=== PATIENT | male | born 1945 | race Caucasian/White ===

== ENCOUNTER → 2016-05-17 | Outpatient (REF) | payer MEDICARE, OTHER ==
[~2016-05-17] MED LIST: /ALEN7SOL OR; ACET65TA OR; ANACIN; ANAP550T PO; ASPI81TA85 PO; CALCIUM+VIT D PO; CARV6.25 PO; CENTTAB47 PO; CETI10TA OR; CORE3.12 PO; ETHACRYNIC ACID PO; GABA-279 PO; MULTIVIT PO; NAPR375T OR; NAPR500T OR; NEUR300C PO; OXYGEN INH; PROL60SO SC; RAMI1.25 PO; RED RICE YEAST PO; SAWPALMETTO PO; SERT25TA2 OR; TYLE325T5 PO; VIAC8.5C PO; VITA1CAP14 PO; ZYRT10CA PO; [UNRECOGNIZED DRUG - CODE] PO; [UNRECOGNIZED DRUG - OTHER] PO; [UNRECOGNIZED DRUG - OTHER] PO
== END ==
LOC: M LABDRAW1 17:10
PROVIDERS: ATTEND Radiology Radiation Oncology
DX: C61 Malignant neoplasm of prostate (principal)

== ENCOUNTER → 2016-05-23 | Outpatient (CLI) | payer MEDICARE, OTHER | LOC: M ONCR 15:12 | PROVIDERS: ATTEND Radiology Radiation Oncology | DX: C61 Malignant neoplasm of prostate (principal) ==

== ENCOUNTER 2016-05-25 21:08 | Emergency (ER) | payer MEDICARE, OTHER ==
[2016-05-25] MEDS ORDERED: CEFTAROLINE FOSAMIL 600 MG VIAL (TEFLARO) As Ordered ONE (23:50)
--- NOTE | 2016-05-26 00:40 | REPUSA ---
Clinical history: Pain, swelling. Findings: The left common femoral, superficial femoral, popliteal, and other deep venous structures c ompress normally and demonstrate normal color Doppler flow. Normal venous waveforms with augmentation are seen. Impression: No evidence of deep vein thrombosis in the left femoral popliteal venous system.
[2016-05-26 00:59] LABS: BASO % 0.6 % (0.0-1.0); EOS # 0.2 K/mm3 (0.0-0.50); EOS % 2.9 % (0.0-3.0); LARGE UNSTAINED CELL # 0.1 K/mm3 (0.0-0.4); LARGE UNSTAINED CELL % 0.7 % (0.0-4.0); LYMPH # 0.4 K/mm3 (1.5-4.5); LYMPH % 6.2 % (24.0-44.0); MEAN CORPUSCULAR HEMOGLOBIN 33.4 pg (27.0-33.0); MEAN CORPUSCULAR HGB CONC 32.8 g/dl (32.0-36.5); MONO # 0.3 K/mm3 (0.0-0.8); MONO % 3.5 % (0.0-5.0); NEUTROPHILS # 6.1 K/mm3 (1.8-7.7); PLATELET COUNT, AUTOMATED 102 k/mm3 (150-450); RED CELL DISTRIBUTION WIDTH 12.3 % (11.5-14.5); WHITE BLOOD COUNT 7.1 K/mm3 (4.0-10.0)
[2016-05-26 01:07] LABS: ANION GAP 6 MEQ/L (8-16); BLOOD UREA NITROGEN 27 MG/DL (7-18); CALCIUM LEVEL 9.5 MG/DL (8.8-10.2); CARBON DIOXIDE LEVEL 34 MEQ/L (21-32); CHLORIDE LEVEL 102 MEQ/L (98-107); GLOMERULAR FILTRATION RATE > 60.0 (>42); GLUCOSE, FASTING 126 MG/DL (83-110); POTASSIUM SERUM 4.1 MEQ/L (3.5-5.1); SODIUM LEVEL 142 MEQ/L (136-145)
[2016-05-26 02:04] LABS: ERYTHROCYTE SEDIMENTATION RATE 2 mm/hr (0-20)
--- NOTE | 2016-05-26 02:08 | EDDOCDS ---
Nurse's Notes [facility] Name: Manuel Flores Age: 71 yrs Sex: Male : 1945 Arrival Date: 05/25/2016 Time: 21:08 Bed I2 / M2 Private MD: Shiela Renae Diagnosis: Cellulitis of left lower limb Presentation: 05/25 21:14 Presenting complaint: Patient states: Left ankle pain, swelling, redness started two rs3 hours ago. Adult Sepsis Screening: The patient does not have new or worsening altered mentation. Patient's respiratory rate is less than 22. Systolic blood pressure is greater than 100. Patient has a qSOFA score of 0- Negative Sepsis Screen. Suicide/Homicide risk assessment- the patient denies having any suicidal and/or homicidal ideations and does not present with any other emotional, behavioral or mental health complaints. Status: Patient is not a director of family service center or dependent. Transition of care: patient was not received from another setting of care. 21:14 Acuity: ALLEN Level 3 rs3 21:14 Method Of Arrival: Walkin/Carried/Asstd rs3 Triage Assessment: 21:19 General: Appears in no apparent distress. Pain: Location: left foot. Musculoskeletal: rs3 Reports Pain is 5 out of 10 on a pain scale. Historical: - Allergies: Latex; PENICILLINS (Rash); - Home Meds: 1. aspirin 325 mg oral tab 2. carvedilol 3.125 mg oral tab 1 tab every 12 hours 3. pravastatin 10 mg oral tab 1 tab once daily 4. Neurontin 1000mg four times a day Oral 5. prolia injection 6. Naproxen 550 mg Oral as needed 7. Soolantra 1 cream 8. Lasix 20 mg Oral tab every other day 9. ramipril 1.25 mg Oral cap 1 cap once daily 10. minocycline 100 mg Oral tab 2 times per day 11. Zyrtec 10 mg Oral tab 1 tab once daily 12. multivitamin Oral tab 1 tab daily 13. Anacin 500mg oral as needed 14. Vitamin D3 2,000 unit oral cap every other day 15. Viactiv 500-500-40 mg-unit-mcg oral chew daily - PMHx: CAD; Diverticulitis; Polio; prostate cancer; - PSHx: Defibrillator as if 11/03/15; Cardiac Cath; Spinal Fusion; small intestine resection; - Social history: Smoking status: Patient states former smoker of tobacco. No barriers to communication noted, The patient speaks fluent Lao. - Family history: Not pertinent. - : The pt / caregiver states he / she is not on anticoagulants. Home medication list is obtained from the patient. - Exposure Risk Screening:: None identified. Screenin:25 Screening information is obtained from the patient. Fall risk: No risks identified. kmg1 Assistance ADL's: requires no assistance with activities of daily living. Abuse/DV Screen: The patient / caregiver reports he/she is: not in a situation that causes fear, pain or injury. Nutritional screening: No deficits noted. home support is adequate. 05/26 01:53 Advance Directives: Currently, there is no health care proxy. There is no active DNR jmb order. There is no living will. There is no Power of Chief Operator Synthesis. Assessment: 05/25 23:25 General: Appears in no apparent distress, comfortable, Behavior is appropriate for age, kmg1 cooperative, pleasant. Pain: Location: left lateral ankle, left Achilles, left medial ankle and anterior aspect of left ankle and left foot Pain currently is 3 out of 10 on a pain scale. Derm: Redness noted on left foot and ankle. Patient believes he has cellullitis. 05/26 00:36 General: Appears in no apparent distress, comfortable, Behavior is appropriate for age, jmb cooperative. Pain: Location: left leg and anterior aspect of left ankle and left medial ankle and left Achilles and left lateral ankle and left foot Pain currently is 5 out of 10 on a pain scale. Neurological: Level of Consciousness is awake, alert, obeys commands, Oriented to person, place, time, Dispatcher Service are equal bilaterally Speech is normal, Facial symmetry appears normal, Facial symmetry: tongue is midline. Cardiovascular: Capillary refill < 3 seconds Heart tones present Pulses are all present. Rhythm is regular. Respiratory: Airway is patent Respiratory effort is even, unlabored, Respiratory pattern is regular, symmetrical, Breath sounds are diminished bilaterally. GI: Abdomen is non- distended Bowel sounds present X 4 quads. Abd is soft and non tender X 4 quads. Derm: Musculoskeletal: Range of motion intact in all extremities. 01:34 General: Appears in no apparent distress, comfortable, Behavior is appropriate for age, jmb cooperative, Patient laying on stretcher, appears asleep, easy to arouse. No complaints voiced at this time. . Neurological: Level of Consciousness is awake, alert, obeys commands, Oriented to person, place, time. Respiratory: Airway is patent Respiratory effort is even, unlabored, Respiratory pattern is regular, symmetrical. 01:52 General: Patient instructed on discharge instructions. Patient asked if there were any jmb questions regarding discharge, patient stated no. IV discontinued per hospital policy. Patient signed discharge instructions. Patient discharged in stable condition. . Vital Signs: 05/25 21:12 BP 112 / 64; Pulse 72; Resp 16; Temp 98.7; Pulse Ox 100% ; Weight 60.33 kg; Height 5 elp ft. 2 in. (157.48 cm); Pain 3/10; 05/26 00:49 Temp 98.3(T); cp1 01:53 BP 118 / 70; Pulse 70; Resp 18; Temp 98.0(O); Pulse Ox 100% on R/A; Pain 0/10; jmb 02:06 BP 101 / 54; Pulse 72; Resp 18; Temp 98.1(T); Pulse Ox 93% on R/A; Pain 0/10; cp1 05/25 21:12 Body Mass Index 24.33 (60.33 kg, 157.48 cm) [facility] Vitals: 05/25 21:12 Log In Time: May 25, 2016 at 21:10. [facility] ED Course: 21:09 Patient visited by No Jimenez PCA. elp 21:09 Shiela Renae is Private Physician. elp 21:09 Patient moved to Waiting elp 21:13 Patient visited by No Jimenez PCA. elp 21:13 Patient moved to Pre RCE elp 21:15 Triage Initiated rs3 23:09 Patient moved to Triage 3 kmg1 23:25 The patient / caregiver is instructed regarding the plan of care and ED course. kmg1 23:27 Patient visited by Sheri Haywood RN. kmg1 23:30 Arnoldo Vigli PA is PHCP. mo1 23:30 Abad Dunlap DO is Attending Physician. mo1 23:44 Patient visited by Arnoldo Vigil PA. mo1 23:45 Patient moved to / M2 cz 05/26 00:19 Patient visited by Angelic Griffiths LPN. cp1 00:36 BLOOD CULTURES Sent. jmb 00:36 -Blood Culture Sent. jmb 00:36 ESR Sent. jmb 00:36 CRP Sent. jmb 00:36 BMP Sent. jmb 00:36 CBC with Diff Sent. jmb 00:36 Inserted saline lock: 22 gauge in right antecubital area and blood collected. The jmb patient tolerated the procedure well. Labs drawn. (by ED staff). Sent per order to lab. Labs/Blood culture drawn. 00:38 Patient visited by Kelvin Duran RN. jmb 00:54 US Lower Extremity R/O DVT Returned. EDMS 00:58 PHCP role handed off by Arnoldo Vigil PA dt4 00:58 Yeni Lim PA-C is PHCP. dt4 01:02 Patient visited by Angelic Griffiths LPN. cp1 01:34 Patient visited by eKlvin Duran RN. jmb 01:53 Discontinued lock intact, bleeding controlled, pressure dressing applied, No jmb redness/swelling at site. No procedures done that require assistance. 02:07 Discontinued lock bleeding controlled, pressure dressing applied, No redness/swelling cp1 at site. Administered Medications: 00:36 Drug: NS 0.9% 1000 ml [sodium chloride 0.9 % intravenous solution] Route: IV; Rate: jmb bolus; Site: right antecubital; 02:05 Follow up: IV Status: Completed infusion cp1 00:36 Drug: Ceftaroline Fosamil 600 mg [ceftaroline fosamil 600 mg intravenous solution] jmb Route: IV; Rate: 1 bolus; Infused Over: 30 mins; Site: right antecubital; 01:11 Follow up: IV Status: Completed infusion cp1 Order Results: Lab Order: CBC with Diff; SPEC'M 05/26/16 00:33 Test: WHITE BLOOD COUNT; Value: 7.1; Range: 4.0-10.0; Units: K/mm3; Status: F Test: RED BLOOD COUNT; Value: 5.34; Range: 4.30-6.10; Units: M/mm3; Status: F Test: HEMOGLOBIN; Value: 17.9; Range: 14.0-18.0; Units: g/dl; Status: F Test: HEMATOCRIT; Value: 54.5; Range: 42.0-52.0; Abnormal: Above high normal; Units: %; Status: F Test: MEAN CORPUSCULAR VOLUME; Value: 102.0; Range: 80.0-96.0; Abnormal: Above high normal; Units: fl; Status: F Test: MEAN CORPUSCULAR HEMOGLOBIN; Value: 33.4; Range: 27.0-33.0; Abnormal: Above high normal; Units: pg; Status: F Test: MEAN CORPUSCULAR HGB CONC; Value: 32.8; Range: 32.0-36.5; Units: g/dl; Status: F Test: RED CELL DISTRIBUTION WIDTH; Value: 12.3; Range: 11.5-14.5; Units: %; Status: F Test: PLATELET COUNT, AUTOMATED; Value: 102; Range: 150-450; Abnormal: Below low normal; Units: k/mm3; Status: F Test: NEUTROPHILS %; Value: 86.0; Range: 36.0-66.0; Abnormal: Above high normal; Units: %; Status: F Test: LYMPH %; Value: 6.2; Range: 24.0-44.0; Abnormal: Below low normal; Units: %; Status: F Test: MONO %; Value: 3.5; Range: 0.0-5.0; Units: %; Status: F Test: EOS %; Value: 2.9; Range: 0.0-3.0; Units: %; Status: F Test: BASO %; Value: 0.6; Range: 0.0-1.0; Units: %; Status: F Test: LARGE UNSTAINED CELL %; Value: 0.7; Range: 0.0-4.0; Units: %; Status: F Test: NEUTROPHILS #; Value: 6.1; Range: 1.8-7.7; Units: K/mm3; Status: F Test: LYMPH #; Value: 0.4; Range: 1.5-4.5; Abnormal: Below low normal; Units: K/mm3; Status: F Test: MONO #; Value: 0.3; Range: 0.0-0.8; Units: K/mm3; Status: F Test: EOS #; Value: 0.2; Range: 0.0-0.50; Units: K/mm3; Status: F Test: BASO #; Value: 0.0; Range: 0.0-0.2; Units: K/mm3; Status: F Test: LARGE UNSTAINED CELL #; Value: 0.1; Range: 0.0-0.4; Units: K/mm3; Status: F Lab Order: BMP; SPEC'M 05/26/16 00:33 Test: GLUCOSE, FASTING; Value: 126; Range: 83-110; Abnormal: Above high normal; Units: MG/DL; Status: F Test: BLOOD UREA NITROGEN; Value: 27; Range: 7-18; Abnormal: Above high normal; Units: MG/DL; Status: F Test: CREATININE FOR GFR; Value: 0.70; Range: 0.70-1.30; Units: MG/DL; Status: F Test: GLOMERULAR FILTRATION RATE; Value: > 60.0; Range: >42; Status: F Test: SODIUM LEVEL; Value: 142; Range: 136-145; Units: MEQ/L; Status: F Test: POTASSIUM SERUM; Value: 4.1; Range: 3.5-5.1; Units: MEQ/L; Status: F Test: CHLORIDE LEVEL; Value: 102; Range: 98-107; Units: MEQ/L; Status: F Test: CARBON DIOXIDE LEVEL; Value: 34; Range: 21-32; Abnormal: Above high normal; Units: MEQ/L; Status: F Test: ANION GAP; Value: 6; Range: 8-16; Abnormal: Below low normal; Units: MEQ/L; Status: F Test: CALCIUM LEVEL; Value: 9.5; Range: 8.8-10.2; Units: MG/DL; Status: F Test Note: ; Units are mL/min/1.73 m2 Chronic Kidney Disease Staging per NKF: Stage I & II GFR >=60 Normal to Mildly Decreased Stage III GFR 30-59 Moderately Decreased Stage IV GFR 15-29 Severely Decreased Stage V GFR <15 Very Little GFR Left ESRD GFR <15 on PATIENT MONITOR Lab Order: CRP; SPEC'M 05/26/16 00:33 Test: C REACTIVE PROTEIN QUANTITATIV; Value: < 0.30; Range: 0.00-0.30; Units: MG/DL; Status: F Lab Order: ESR; ARIAN 05/26/16 00:33 Test: ERYTHROCYTE SEDIMENTATION RATE; Value: 2; Range: 0-20; Units: mm/hr; Status: F Radiology Order: US Lower Extremity R/O DVT Test: US Lower Extremity R/O DVT REASON FOR EXAMINATION: swelling and erythema; ; Clinical history: Pain, swelling.; Findings: The left common femoral, superficial femoral, popliteal, and other deep venous structures c; ompress normally and demonstrate normal color Doppler flow. Normal venous waveforms with augmentation; are seen.; Impression:; No evidence of deep vein thrombosis in the left femoral popliteal venous system.; ; Outcome: 01:49 Discharge ordered by Provider. dt4 01:53 Discharge Assessment: Patient awake, alert and oriented x 3. No cognitive and/or jmb functional deficits noted. Patient verbalized understanding of disposition instructions. Patient awake and alert. obeys commands, Oriented to person, place and time. Patient verbalized understanding of disposition instructions. Patient has no functional deficits. patient administered narcotics - no. The following High Risk Discharge criteria are identified: None. Discharged to home ambulatory, with significant other. Condition: stable. Discharge instructions given to patient, Instructed on discharge instructions, follow up and referral plans. medication usage, Demonstrated understanding of instructions, medications, Pt was receptive of discharge instructions/ teaching. Ultrasound Study completed. Property sent home with patient. 02:07 Patient left the ED. cp1 Signatures: Dispatcher [employer] EDMS Sheri Haywood RN RN kmg1 Rahul Cooper RN RN cz Soosairaj, Rosemary, RN RN rs3 Angelic Griffiths LPN LPN cp1 Arnoldo Vigil PA PA mo1 No Jimenez, CORNER BRACE BLOCK MACHINE OPERATOR CORNER BRACE BLOCK MACHINE OPERATOR Kelvin Armando RN RN jmb Tschudi, Diane, PA-C PAGemC dt4 MTDD
--- NOTE | 2016-05-26 02:08 | EDDOCDS ---
Physician Documentation [facility] Name: Manuel Flores Age: 71 yrs Sex: Male : 1945 Arrival Date: 05/25/2016 Time: 21:08 Bed I2 / M2 Private MD: Shiela Renae Disposition: 05/26/16 01:49 Discharged to Home/Self Care. Impression: Cellulitis of left lower limb. - Condition is Stable. - Discharge Instructions: Cellulitis. - Prescriptions for Keflex 500 mg Oral Capsule - take 1 capsule by ORAL route every 6 hours for 10 days; 40 capsule. - Medication Reconciliation, Local Pharmacy Hours form. - Follow up: Emergency Department; When: As needed; Reason: Worsening of conditions. Follow up: Private Physician; When: 2 - 3 days; Reason: Wound/Symptom Recheck, Recheck today's complaints, Continuance of care. - Problem is new. - Symptoms have improved. Historical: - Allergies: Latex; PENICILLINS (Rash); - Home Meds: 1. aspirin 325 mg oral tab 2. carvedilol 3.125 mg oral tab 1 tab every 12 hours 3. pravastatin 10 mg oral tab 1 tab once daily 4. Neurontin 1000mg four times a day Oral 5. prolia injection 6. Naproxen 550 mg Oral as needed 7. Soolantra 1 cream 8. Lasix 20 mg Oral tab every other day 9. ramipril 1.25 mg Oral cap 1 cap once daily 10. minocycline 100 mg Oral tab 2 times per day 11. Zyrtec 10 mg Oral tab 1 tab once daily 12. multivitamin Oral tab 1 tab daily 13. Anacin 500mg oral as needed 14. Vitamin D3 2,000 unit oral cap every other day 15. Viactiv 500-500-40 mg-unit-mcg oral chew daily - PMHx: CAD; Diverticulitis; Polio; prostate cancer; - PSHx: Defibrillator as if 11/03/15; Cardiac Cath; Spinal Fusion; small intestine resection; - Social history: Smoking status: Patient states former smoker of tobacco. No barriers to communication noted, The patient speaks fluent [place] Citizen. - Family history: Not pertinent. - : The pt / caregiver states he / she is not on anticoagulants. Home medication list is obtained from the patient. - Exposure Risk Screening:: None identified. Vital Signs: 05/25 21:12 BP 112 / 64; Pulse 72; Resp 16; Temp 98.7; Pulse Ox 100% ; Weight 60.33 kg / 133 lbs; elp Height 5 ft. 2 in. (157.48 cm); Pain 3/10; 05/26 00:49 Temp 98.3(T); cp1 01:53 BP 118 / 70; Pulse 70; Resp 18; Temp 98.0(O); Pulse Ox 100% on R/A; Pain 0/10; jmb 02:06 BP 101 / 54; Pulse 72; Resp 18; Temp 98.1(T); Pulse Ox 93% on R/A; Pain 0/10; cp1 05/25 21:12 Body Mass Index 24.33 (60.33 kg, 157.48 cm) elp MDM: 05/25 23:47 IV Saline Lock ordered. mo1 23:47 NS 0.9% 1000 ml IV at bolus once ordered. mo1 23:47 -Blood Culture (Adults Only), peripheral from different site, or from device/port/PICC mo1 etc. if present ordered. 23:47 Ceftaroline Fosamil 600 mg IV at 1 bolus once over 30 mins; reconstitute with 20mL NS mo1 or SW, then dilulte in 50mL of NS, D5W or LR ordered. 23:49 CBC with Diff Ordered. EDMS 23:49 BMP Ordered. EDMS 23:49 CRP Ordered. EDMS 23:49 ESR Ordered. EDMS 23:49 -Blood Culture Ordered. EDMS 23:50 Foot, Complete Ordered. EDMS 23:57 US Lower Extremity R/O DVT Ordered. EDMS 05/26 00:29 -Blood Culture (Adults Only), peripheral from different site, or from device/port/PICC ml3 etc. if present complete. 00:30 BLOOD CULTURES Ordered. EDMS 01:57 Financial registration complete. h Administered Medications: 00:36 Drug: NS 0.9% 1000 ml [sodium chloride 0.9 % intravenous solution] Route: IV; Rate: jmb bolus; Site: right antecubital; 02:05 Follow up: IV Status: Completed infusion cp1 00:36 Drug: Ceftaroline Fosamil 600 mg [ceftaroline fosamil 600 mg intravenous solution] jmb Route: IV; Rate: 1 bolus; Infused Over: 30 mins; Site: right antecubital; 01:11 Follow up: IV Status: Completed infusion cp1 Signatures: Dispatcher [employer] Sheri Cardenas, RN RN kmg1 Valeriy Herron, Tufting Machine Operator Unit ml3 Kiah Steel RN RN rs3 Angelic Griffiths,PEN MAKER PEN MAKER cp1 Arnoldo Vigil PA PA mo1 Tschudi, Diane, PA-C PA-C dt4 Miriam Thomas Joshua RN jmb MTDD
--- NOTE | 2016-05-26 11:03 | REP ---
Left foot series: Four views. History: Left fifth metatarsal infection. Findings: Four views of the left foot demonstrate diffuse soft tissue swelling in the midfoot, hindfoot and ankle region. No soft tissue gas is seen. No opaque foreign body is noted. No focal bony destructive lesion is seen. There is some diffuse osteopenia. Mild midfoot spurring is seen. Impression: No focal bony erosive changes seen. No soft tissue gas or opaque foreign body seen. Diffuse osteopenia. Signed by Don Ramirez MD 05/26/2016 11:06 A
--- NOTE | 2016-05-28 03:08 | EDDOCDS ---
Physician Documentation [facility] Name: Manuel Flores Age: 71 yrs Sex: Male : 1945 Arrival Date: 05/25/2016 Time: 21:08 Bed I2 / M2 Private MD: Shiela Renae Disposition: 05/26/16 01:49 Discharged to Home/Self Care. Impression: Cellulitis of left lower limb. - Condition is Stable. - Discharge Instructions: Cellulitis. - Prescriptions for Keflex 500 mg Oral Capsule - take 1 capsule by ORAL route every 6 hours for 10 days; 40 capsule. - Medication Reconciliation, Local Pharmacy Hours form. - Follow up: Emergency Department; When: As needed; Reason: Worsening of conditions. Follow up: Private Physician; When: 2 - 3 days; Reason: Wound/Symptom Recheck, Recheck today's complaints, Continuance of care. - Problem is new. - Symptoms have improved. Historical: - Allergies: Latex; PENICILLINS (Rash); - Home Meds: 1. aspirin 325 mg oral tab 2. carvedilol 3.125 mg oral tab 1 tab every 12 hours 3. pravastatin 10 mg oral tab 1 tab once daily 4. Neurontin 1000mg four times a day Oral 5. prolia injection 6. Naproxen 550 mg Oral as needed 7. Soolantra 1 cream 8. Lasix 20 mg Oral tab every other day 9. ramipril 1.25 mg Oral cap 1 cap once daily 10. minocycline 100 mg Oral tab 2 times per day 11. Zyrtec 10 mg Oral tab 1 tab once daily 12. multivitamin Oral tab 1 tab daily 13. Anacin 500mg oral as needed 14. Vitamin D3 2,000 unit oral cap every other day 15. Viactiv 500-500-40 mg-unit-mcg oral chew daily - PMHx: CAD; Diverticulitis; Polio; prostate cancer; - PSHx: Defibrillator as if 11/03/15; Cardiac Cath; Spinal Fusion; small intestine resection; - Social history: Smoking status: Patient states former smoker of tobacco. No barriers to communication noted, The patient speaks fluent Thai. - Family history: Not pertinent. - : The pt / caregiver states he / she is not on anticoagulants. Home medication list is obtained from the patient. - Exposure Risk Screening:: None identified. Vital Signs: 05/25 21:12 BP 112 / 64; Pulse 72; Resp 16; Temp 98.7; Pulse Ox 100% ; Weight 60.33 kg / 133 lbs; elp Height 5 ft. 2 in. (157.48 cm); Pain 3/10; 05/26 00:49 Temp 98.3(T); cp1 01:53 BP 118 / 70; Pulse 70; Resp 18; Temp 98.0(O); Pulse Ox 100% on R/A; Pain 0/10; jmb 02:06 BP 101 / 54; Pulse 72; Resp 18; Temp 98.1(T); Pulse Ox 93% on R/A; Pain 0/10; cp1 05/25 21:12 Body Mass Index 24.33 (60.33 kg, 157.48 cm) elp MDM: 05/25 23:47 IV Saline Lock ordered. mo1 23:47 NS 0.9% 1000 ml IV at bolus once ordered. mo1 23:47 -Blood Culture (Adults Only), peripheral from different site, or from device/port/PICC mo1 etc. if present ordered. 23:47 Ceftaroline Fosamil 600 mg IV at 1 bolus once over 30 mins; reconstitute with 20mL NS mo1 or SW, then dilulte in 50mL of NS, D5W or LR ordered. 23:49 CBC with Diff Ordered. EDMS 23:49 BMP Ordered. EDMS 23:49 CRP Ordered. EDMS 23:49 ESR Ordered. EDMS 23:49 -Blood Culture Ordered. EDMS 23:50 Foot, Complete Ordered. EDMS 23:57 US Lower Extremity R/O DVT Ordered. EDMS 05/26 00:29 -Blood Culture (Adults Only), peripheral from different site, or from device/port/PICC ml3 etc. if present complete. 00:30 BLOOD CULTURES Ordered. EDMS 01:57 Financial registration complete. [facility] 02:55 [facility] Payment Agreement was scanned into [employer] and attached to record. [facility] 12:41 T-Sheet-- Draft Copy was scanned into [employer] and attached to record. 12:41 Radiology Report was scanned into [employer] and attached to record. gb Administered Medications: 00:36 Drug: NS 0.9% 1000 ml [sodium chloride 0.9 % intravenous solution] Route: IV; Rate: jmb bolus; Site: right antecubital; 02:05 Follow up: IV Status: Completed infusion cp1 00:36 Drug: Ceftaroline Fosamil 600 mg [ceftaroline fosamil 600 mg intravenous solution] jmb Route: IV; Rate: 1 bolus; Infused Over: 30 mins; Site: right antecubital; 01:11 Follow up: IV Status: Completed infusion cp1 Signatures: Dispatcher [employer] EDNM Sheri Haywood, RN RN kmg1 Aure Patiño, Reg Reg gb Gopal, GemJaci, Tool Technician Unit ml3 Kiah Steel RN RN rs3 Angelic Griffiths,STUDIO ASSISTANT STUDIO ASSISTANT cp1 Arnoldo Vigil PA PA mo1 Yeni Lim, PA-C PA-C [email or web address] Miriam Thomas Joshua RN jmb The chart was reviewed and I authenticate all verbal orders and agree with the evaluation and treatment provided.Attachments: 02:55 [facility] Payment Agreement [facility] 12:41 T-Sheet-- Draft Copy Chart Complete [facility]
--- NOTE | 2016-05-28 03:08 | EDDOCDS ---
Nurse's Notes [facility] Name: Manuel Flores Age: 71 yrs Sex: Male : 1945 Arrival Date: 05/25/2016 Time: 21:08 Bed I2 / M2 Private MD: Shiela Renae Diagnosis: Cellulitis of left lower limb Presentation: 05/25 21:14 Presenting complaint: Patient states: Left ankle pain, swelling, redness started two rs3 hours ago. Adult Sepsis Screening: The patient does not have new or worsening altered mentation. Patient's respiratory rate is less than 22. Systolic blood pressure is greater than 100. Patient has a qSOFA score of 0- Negative Sepsis Screen. Suicide/Homicide risk assessment- the patient denies having any suicidal and/or homicidal ideations and does not present with any other emotional, behavioral or mental health complaints. Status: Patient is not a marketing services vice president or dependent. Transition of care: patient was not received from another setting of care. 21:14 Acuity: ALLEN Level 3 rs3 21:14 Method Of Arrival: Walkin/Carried/Asstd rs3 Triage Assessment: 21:19 General: Appears in no apparent distress. Pain: Location: left foot. Musculoskeletal: rs3 Reports Pain is 5 out of 10 on a pain scale. Historical: - Allergies: Latex; PENICILLINS (Rash); - Home Meds: 1. aspirin 325 mg oral tab 2. carvedilol 3.125 mg oral tab 1 tab every 12 hours 3. pravastatin 10 mg oral tab 1 tab once daily 4. Neurontin 1000mg four times a day Oral 5. prolia injection 6. Naproxen 550 mg Oral as needed 7. Soolantra 1 cream 8. Lasix 20 mg Oral tab every other day 9. ramipril 1.25 mg Oral cap 1 cap once daily 10. minocycline 100 mg Oral tab 2 times per day 11. Zyrtec 10 mg Oral tab 1 tab once daily 12. multivitamin Oral tab 1 tab daily 13. Anacin 500mg oral as needed 14. Vitamin D3 2,000 unit oral cap every other day 15. Viactiv 500-500-40 mg-unit-mcg oral chew daily - PMHx: CAD; Diverticulitis; Polio; prostate cancer; - PSHx: Defibrillator as if 11/03/15; Cardiac Cath; Spinal Fusion; small intestine resection; - Social history: Smoking status: Patient states former smoker of tobacco. No barriers to communication noted, The patient speaks fluent Lithuanian. - Family history: Not pertinent. - : The pt / caregiver states he / she is not on anticoagulants. Home medication list is obtained from the patient. - Exposure Risk Screening:: None identified. Screenin:25 Screening information is obtained from the patient. Fall risk: No risks identified. kmg1 Assistance ADL's: requires no assistance with activities of daily living. Abuse/DV Screen: The patient / caregiver reports he/she is: not in a situation that causes fear, pain or injury. Nutritional screening: No deficits noted. home support is adequate. 05/26 01:53 Advance Directives: Currently, there is no health care proxy. There is no active DNR jmb order. There is no living will. 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 Assessment: 05/25 23:25 General: Appears in no apparent distress, comfortable, Behavior is appropriate for age, kmg1 cooperative, pleasant. Pain: Location: left lateral ankle, left Achilles, left medial ankle and anterior aspect of left ankle and left foot Pain currently is 3 out of 10 on a pain scale. Derm: Redness noted on left foot and ankle. Patient believes he has cellullitis. 05/26 00:36 General: Appears in no apparent distress, comfortable, Behavior is appropriate for age, jmb cooperative. Pain: Location: left leg and anterior aspect of left ankle and left medial ankle and left Achilles and left lateral ankle and left foot Pain currently is 5 out of 10 on a pain scale. Neurological: Level of Consciousness is awake, alert, obeys commands, Oriented to person, place, time, Front Desk Officer are equal bilaterally Speech is normal, Facial symmetry appears normal, Facial symmetry: tongue is midline. Cardiovascular: Capillary refill < 3 seconds Heart tones present Pulses are all present. Rhythm is regular. Respiratory: Airway is patent Respiratory effort is even, unlabored, Respiratory pattern is regular, symmetrical, Breath sounds are diminished bilaterally. GI: Abdomen is non- distended Bowel sounds present X 4 quads. Abd is soft and non tender X 4 quads. Derm: Musculoskeletal: Range of motion intact in all extremities. 01:34 General: Appears in no apparent distress, comfortable, Behavior is appropriate for age, jmb cooperative, Patient laying on stretcher, appears asleep, easy to arouse. No complaints voiced at this time. . Neurological: Level of Consciousness is awake, alert, obeys commands, Oriented to person, place, time. Respiratory: Airway is patent Respiratory effort is even, unlabored, Respiratory pattern is regular, symmetrical. 01:52 General: Patient instructed on discharge instructions. Patient asked if there were any jmb questions regarding discharge, patient stated no. IV discontinued per hospital policy. Patient signed discharge instructions. Patient discharged in stable condition. . Vital Signs: 05/25 21:12 BP 112 / 64; Pulse 72; Resp 16; Temp 98.7; Pulse Ox 100% ; Weight 60.33 kg; Height 5 elp ft. 2 in. (157.48 cm); Pain 3/10; 05/26 00:49 Temp 98.3(T); cp1 01:53 BP 118 / 70; Pulse 70; Resp 18; Temp 98.0(O); Pulse Ox 100% on R/A; Pain 0/10; jmb 02:06 BP 101 / 54; Pulse 72; Resp 18; Temp 98.1(T); Pulse Ox 93% on R/A; Pain 0/10; cp1 05/25 21:12 Body Mass Index 24.33 (60.33 kg, 157.48 cm) [facility] Vitals: 05/25 21:12 Log In Time: May 25, 2016 at 21:10. [facility] ED Course: 21:09 Patient visited by No Jimenez PCA. elp 21:09 Shiela Renae is Private Physician. elp 21:09 Patient moved to Waiting elp 21:13 Patient visited by No Jimenez PCA. elp 21:13 Patient moved to Pre RCE elp 21:15 Triage Initiated rs3 23:09 Patient moved to Triage 3 kmg1 23:25 The patient / caregiver is instructed regarding the plan of care and ED course. kmg1 23:27 Patient visited by Sheri Haywood RN. kmg1 23:30 Arnoldo Vigil PA is PHCP. mo1 23:30 Abad Dunlap DO is Attending Physician. mo1 23:44 Patient visited by Arnoldo Vigil PA. mo1 23:45 Patient moved to / M2 cz 05/26 00:19 Patient visited by Angelic Griffiths LPN. cp1 00:36 BLOOD CULTURES Sent. jmb 00:36 -Blood Culture Sent. jmb 00:36 ESR Sent. jmb 00:36 CRP Sent. jmb 00:36 BMP Sent. jmb 00:36 CBC with Diff Sent. jmb 00:36 Inserted saline lock: 22 gauge in right antecubital area and blood collected. The jmb patient tolerated the procedure well. Labs drawn. (by ED staff). Sent per order to lab. Labs/Blood culture drawn. 00:38 Patient visited by Kelvin Duran RN. jmb 00:54 US Lower Extremity R/O DVT Returned. EDMS 00:58 PHCP role handed off by Arnoldo Vigil PA dt4 00:58 Yeni Lim PA-C is PHCP. dt4 01:02 Patient visited by Angelic Griffiths LPN. cp1 01:34 Patient visited by Kelvin Duran RN. jmb 01:53 Discontinued lock intact, bleeding controlled, pressure dressing applied, No jmb redness/swelling at site. No procedures done that require assistance. 02:07 Discontinued lock bleeding controlled, pressure dressing applied, No redness/swelling cp1 at site. 02:55 [facility] Payment Agreement was scanned into [employer] and attached to record. [facility] 11:34 Foot, Complete Returned. EDMS 12:41 T-Sheet-- Draft Copy was scanned into [employer] and attached to record. gb 12:41 Radiology Report was scanned into [employer] and attached to record. gb Administered Medications: 00:36 Drug: NS 0.9% 1000 ml [sodium chloride 0.9 % intravenous solution] Route: IV; Rate: jmb bolus; Site: right antecubital; 02:05 Follow up: IV Status: Completed infusion cp1 00:36 Drug: Ceftaroline Fosamil 600 mg [ceftaroline fosamil 600 mg intravenous solution] jmb Route: IV; Rate: 1 bolus; Infused Over: 30 mins; Site: right antecubital; 01:11 Follow up: IV Status: Completed infusion cp1 Order Results: Lab Order: CBC with Diff; SPEC'M 05/26/16 00:33 Test: WHITE BLOOD COUNT; Value: 7.1; Range: 4.0-10.0; Units: K/mm3; Status: F Test: RED BLOOD COUNT; Value: 5.34; Range: 4.30-6.10; Units: M/mm3; Status: F Test: HEMOGLOBIN; Value: 17.9; Range: 14.0-18.0; Units: g/dl; Status: F Test: HEMATOCRIT; Value: 54.5; Range: 42.0-52.0; Abnormal: Above high normal; Units: %; Status: F Test: MEAN CORPUSCULAR VOLUME; Value: 102.0; Range: 80.0-96.0; Abnormal: Above high normal; Units: fl; Status: F Test: MEAN CORPUSCULAR HEMOGLOBIN; Value: 33.4; Range: 27.0-33.0; Abnormal: Above high normal; Units: pg; Status: F Test: MEAN CORPUSCULAR HGB CONC; Value: 32.8; Range: 32.0-36.5; Units: g/dl; Status: F Test: RED CELL DISTRIBUTION WIDTH; Value: 12.3; Range: 11.5-14.5; Units: %; Status: F Test: PLATELET COUNT, AUTOMATED; Value: 102; Range: 150-450; Abnormal: Below low normal; Units: k/mm3; Status: F Test: NEUTROPHILS %; Value: 86.0; Range: 36.0-66.0; Abnormal: Above high normal; Units: %; Status: F Test: LYMPH %; Value: 6.2; Range: 24.0-44.0; Abnormal: Below low normal; Units: %; Status: F Test: MONO %; Value: 3.5; Range: 0.0-5.0; Units: %; Status: F Test: EOS %; Value: 2.9; Range: 0.0-3.0; Units: %; Status: F Test: BASO %; Value: 0.6; Range: 0.0-1.0; Units: %; Status: F Test: LARGE UNSTAINED CELL %; Value: 0.7; Range: 0.0-4.0; Units: %; Status: F Test: NEUTROPHILS #; Value: 6.1; Range: 1.8-7.7; Units: K/mm3; Status: F Test: LYMPH #; Value: 0.4; Range: 1.5-4.5; Abnormal: Below low normal; Units: K/mm3; Status: F Test: MONO #; Value: 0.3; Range: 0.0-0.8; Units: K/mm3; Status: F Test: EOS #; Value: 0.2; Range: 0.0-0.50; Units: K/mm3; Status: F Test: BASO #; Value: 0.0; Range: 0.0-0.2; Units: K/mm3; Status: F Test: LARGE UNSTAINED CELL #; Value: 0.1; Range: 0.0-0.4; Units: K/mm3; Status: F Lab Order: [facility]; SPEC05/26/16 00:33 Test: GLUCOSE, FASTING; Value: 126; Range: 83-110; Abnormal: Above high normal; Units: MG/DL; Status: F Test: BLOOD UREA NITROGEN; Value: 27; Range: 7-18; Abnormal: Above high normal; Units: MG/DL; Status: F Test: CREATININE FOR GFR; Value: 0.70; Range: 0.70-1.30; Units: MG/DL; Status: F Test: GLOMERULAR FILTRATION RATE; Value: > 60.0; Range: >42; Status: F Test: SODIUM LEVEL; Value: 142; Range: 136-145; Units: MEQ/L; Status: F Test: POTASSIUM SERUM; Value: 4.1; Range: 3.5-5.1; Units: MEQ/L; Status: F Test: CHLORIDE LEVEL; Value: 102; Range: 98-107; Units: MEQ/L; Status: F Test: CARBON DIOXIDE LEVEL; Value: 34; Range: 21-32; Abnormal: Above high normal; Units: MEQ/L; Status: F Test: ANION GAP; Value: 6; Range: 8-16; Abnormal: Below low normal; Units: MEQ/L; Status: F Test: CALCIUM LEVEL; Value: 9.5; Range: 8.8-10.2; Units: MG/DL; Status: F Test Note: ; Units are mL/min/1.73 m2 Chronic Kidney Disease Staging per NKF: Stage I & II GFR >=60 Normal to Mildly Decreased Stage III GFR 30-59 Moderately Decreased Stage IV GFR 15-29 Severely Decreased Stage V GFR <15 Very Little GFR Left ESRD GFR <15 on TRAVEL SALES CONSULTANT Lab Order: CRP; [facility] 05/26/16:33 Test: C REACTIVE PROTEIN QUANTITATIV; Value: < 0.30; Range: 0.00-0.30; Units: MG/DL; Status: F Lab Order: ESR; [facility] 05/26/16:33 Test: ERYTHROCYTE SEDIMENTATION RATE; Value: 2; Range: 0-20; Units: mm/hr; Status: F Lab Order: -Blood Culture; [facility] 05/26/16:33 Test: BLOOD CULTURE; Value: No growth after 24 hours . All specimens observed; Status: F Test: BLOOD CULTURE; Value: for 5 days. Results final at that time.; Status: F Test: BLOOD CULTURE; Value: No Growth after 48 hours. All Specimens observed; Status: F Test: BLOOD CULTURE; Value: for 7 days. Results final at that time.; Status: F Lab Order: BLOOD CULTURES; [facility] 05/26/16:33 Test: BLOOD CULTURE; Value: No growth after 24 hours . All specimens observed; Status: F Test: BLOOD CULTURE; Value: for 5 days. Results final at that time.; Status: F Test: BLOOD CULTURE; Value: No Growth after 48 hours. All Specimens observed; Status: F Test: BLOOD CULTURE; Value: for 7 days. Results final at that time.; Status: F Radiology Order: Foot, Complete Test: Foot, Complete REASON FOR EXAMINATION: left 5th metatarsal infection; Left foot series: Four views.; ; History: Left fifth metatarsal infection.; ; Findings: Four views of the left foot demonstrate diffuse soft tissue swelling; in the midfoot, hindfoot and ankle region. No soft tissue gas is seen. No; opaque foreign body is noted. No focal bony destructive lesion is seen. There; is some diffuse osteopenia. Mild midfoot spurring is seen.; ; Impression:; ; No focal bony erosive changes seen. No soft tissue gas or opaque foreign body; seen. Diffuse osteopenia.; ; ; Signed by; Don Ramirez MD 05/26/2016 11:06 A; Radiology Order: US Lower Extremity R/O DVT Test: US Lower Extremity R/O DVT REASON FOR EXAMINATION: swelling and erythema; ; Clinical history: Pain, swelling.; Findings: The left common femoral, superficial femoral, popliteal, and other deep venous structures c; ompress normally and demonstrate normal color Doppler flow. Normal venous waveforms with augmentation; are seen.; Impression:; No evidence of deep vein thrombosis in the left femoral popliteal venous system.; ; Outcome: 01:49 Discharge ordered by Provider. dt4 01:53 Discharge Assessment: Patient awake, alert and oriented x 3. No cognitive and/or jmb functional deficits noted. Patient verbalized understanding of disposition instructions. Patient awake and alert. obeys commands, Oriented to person, place and time. Patient verbalized understanding of disposition instructions. Patient has no functional deficits. patient administered narcotics - no. The following High Risk Discharge criteria are identified: None. Discharged to home ambulatory, with significant other. Condition: stable. Discharge instructions given to patient, Instructed on discharge instructions, follow up and referral plans. medication usage, Demonstrated understanding of instructions, medications, Pt was receptive of discharge instructions/ teaching. Ultrasound Study completed. Property sent home with patient. 02:07 Patient left the ED. cp1 Signatures: Dispatcher [employer] EDMS Sheri Haywood RN RN kmg1 Rahul Cooper RN RN cz Barnhardt, Gloria, Gary Reg Kiah Davis RN RN rs3 Angelic Griffiths,AIRCRAFT PAINTER APPRENTICE AIRCRAFT PAINTER APPRENTICE cp1 Arnoldo Vigil PA PA mo1 No Jimenez, FELT CUTTING MACHINE OPERATOR FELT CUTTING MACHINE OPERATOR Kelvin Armando RN RN jmb Tschudi, Diane PA-C PA-C dt4 Miriam Thomas madisyn Chart Complete MTDD
--- NOTE | 2016-05-28 03:08 | EDDOCDS ---
Physician Documentation [facility] Name: Manuel Flores Age: 71 yrs Sex: Male : 1945 Arrival Date: 05/25/2016 Time: 21:08 Bed I2 / M2 Private MD: Shiela Renae Disposition: 05/26/16 01:49 Discharged to Home/Self Care. Impression: Cellulitis of left lower limb. - Condition is Stable. - Discharge Instructions: Cellulitis. - Prescriptions for Keflex 500 mg Oral Capsule - take 1 capsule by ORAL route every 6 hours for 10 days; 40 capsule. - Medication Reconciliation, Local Pharmacy Hours form. - Follow up: Emergency Department; When: As needed; Reason: Worsening of conditions. Follow up: Private Physician; When: 2 - 3 days; Reason: Wound/Symptom Recheck, Recheck today's complaints, Continuance of care. - Problem is new. - Symptoms have improved. Historical: - Allergies: Latex; PENICILLINS (Rash); - Home Meds: 1. aspirin 325 mg oral tab 2. carvedilol 3.125 mg oral tab 1 tab every 12 hours 3. pravastatin 10 mg oral tab 1 tab once daily 4. Neurontin 1000mg four times a day Oral 5. prolia injection 6. Naproxen 550 mg Oral as needed 7. Soolantra 1 cream 8. Lasix 20 mg Oral tab every other day 9. ramipril 1.25 mg Oral cap 1 cap once daily 10. minocycline 100 mg Oral tab 2 times per day 11. Zyrtec 10 mg Oral tab 1 tab once daily 12. multivitamin Oral tab 1 tab daily 13. Anacin 500mg oral as needed 14. Vitamin D3 2,000 unit oral cap every other day 15. Viactiv 500-500-40 mg-unit-mcg oral chew daily - PMHx: CAD; Diverticulitis; Polio; prostate cancer; - PSHx: Defibrillator as if 11/03/15; Cardiac Cath; Spinal Fusion; small intestine resection; - Social history: Smoking status: Patient states former smoker of tobacco. No barriers to communication noted, The patient speaks fluent Arabic. - Family history: Not pertinent. - : The pt / caregiver states he / she is not on anticoagulants. Home medication list is obtained from the patient. - Exposure Risk Screening:: None identified. Vital Signs: 05/25 21:12 BP 112 / 64; Pulse 72; Resp 16; Temp 98.7; Pulse Ox 100% ; Weight 60.33 kg / 133 lbs; elp Height 5 ft. 2 in. (157.48 cm); Pain 3/10; 05/26 00:49 Temp 98.3(T); cp1 01:53 BP 118 / 70; Pulse 70; Resp 18; Temp 98.0(O); Pulse Ox 100% on R/A; Pain 0/10; jmb 02:06 BP 101 / 54; Pulse 72; Resp 18; Temp 98.1(T); Pulse Ox 93% on R/A; Pain 0/10; cp1 05/25 21:12 Body Mass Index 24.33 (60.33 kg, 157.48 cm) elp MDM: 05/25 23:47 IV Saline Lock ordered. mo1 23:47 NS 0.9% 1000 ml IV at bolus once ordered. mo1 23:47 -Blood Culture (Adults Only), peripheral from different site, or from device/port/PICC mo1 etc. if present ordered. 23:47 Ceftaroline Fosamil 600 mg IV at 1 bolus once over 30 mins; reconstitute with 20mL NS mo1 or SW, then dilulte in 50mL of NS, D5W or LR ordered. 23:49 CBC with Diff Ordered. EDMS 23:49 BMP Ordered. EDMS 23:49 CRP Ordered. EDMS 23:49 ESR Ordered. EDMS 23:49 -Blood Culture Ordered. EDMS 23:50 Foot, Complete Ordered. EDMS 23:57 US Lower Extremity R/O DVT Ordered. EDMS 05/26 00:29 -Blood Culture (Adults Only), peripheral from different site, or from device/port/PICC ml3 etc. if present complete. 00:30 BLOOD CULTURES Ordered. EDMS 01:57 Financial registration complete. [facility] 02:55 [facility] Payment Agreement was scanned into [employer] and attached to record. [facility] 12:41 T-Sheet-- Draft Copy was scanned into [employer] and attached to record. 12:41 Radiology Report was scanned into [employer] and attached to record. gb Administered Medications: 00:36 Drug: NS 0.9% 1000 ml [sodium chloride 0.9 % intravenous solution] Route: IV; Rate: jmb bolus; Site: right antecubital; 02:05 Follow up: IV Status: Completed infusion cp1 00:36 Drug: Ceftaroline Fosamil 600 mg [ceftaroline fosamil 600 mg intravenous solution] jmb Route: IV; Rate: 1 bolus; Infused Over: 30 mins; Site: right antecubital; 01:11 Follow up: IV Status: Completed infusion cp1 Signatures: Dispatcher [employer] EDVT Sheri Haywood, RN RN kmg1 Aure Patiño, Reg Reg gb Gopal, GemJaci, Margarine Maker Unit ml3 Kiah Steel RN RN rs3 Angelic Griffiths,VP RHEUMATOLOGY VP RHEUMATOLOGY cp1 Arnoldo Vigil PA PA mo1 Yeni Lim, PA-C PA-C [email or web address] Miriam Thomas Joshua RN jmb The chart was reviewed and I authenticate all verbal orders and agree with the evaluation and treatment provided.Attachments: 02:55 [facility] Payment Agreement [facility] 12:41 T-Sheet-- Draft Copy Chart Complete [facility]
== END 2016-05-26 02:07 | disposition home or self-care (01) ==
LOC: M ED 21:08
DX: L03.116 Cellulitis of left lower limb (principal); I25.10 Atherosclerotic heart disease of native coronary artery without angina pectoris; Z85.46 Personal history of malignant neoplasm of prostate; Z87.19 Personal history of other diseases of the digestive system; Z86.12 Personal history of poliomyelitis; Z79.899 Other long term (current) drug therapy; Z79.82 Long term (current) use of aspirin; Z79.2 Long term (current) use of antibiotics; Z88.0 Allergy status to penicillin; Z91.040 Latex allergy status; Z79.891 Long term (current) use of opiate analgesic

== ENCOUNTER 2016-08-16 17:04 | Inpatient (IN) | payer MEDICARE, OTHER ==
[~2016-08-16] VITALS: Ht 157.5 cm; Wt 57.9 kg
[~2016-08-16 17:04] MED LIST changes: +[UNRECOGNIZED DRUG - CODE] PO; -[UNRECOGNIZED DRUG - OTHER] PO
[2016-08-16] MEDS ORDERED: ASPI325T28 PO (17:26)
[2016-08-16] MEDS ORDERED: LASI20TA PO (17:26)
[2016-08-16] MEDS ORDERED: ENTR1TAB PO (17:26)
[2016-08-16 18:29] LABS: BASO % 0.7 % (0.0-1.0); EOS # 0.2 K/mm3 (0.0-0.50); EOS % 4.2 % (0.0-3.0); LARGE UNSTAINED CELL # 0.2 K/mm3 (0.0-0.4); LARGE UNSTAINED CELL % 4.4 % (0.0-4.0); LYMPH # 0.7 K/mm3 (1.5-4.5); LYMPH % 15.4 % (24.0-44.0); MEAN CORPUSCULAR HEMOGLOBIN 32.5 pg (27.0-33.0); MEAN CORPUSCULAR HGB CONC 30.5 g/dl (32.0-36.5); MEAN CORPUSCULAR VOLUME 106.3 fl (80.0-96.0); MONO # 0.4 K/mm3 (0.0-0.8); MONO % 10.2 % (0.0-5.0); NEUTROPHILS # 2.7 K/mm3 (1.8-7.7); PLATELET COUNT, AUTOMATED 110 k/mm3 (150-450); RED CELL DISTRIBUTION WIDTH 12.9 % (11.5-14.5); WHITE BLOOD COUNT 4.2 K/mm3 (4.0-10.0)
--- NOTE | 2016-08-16 19:13 | REP ---
PORTABLE CHEST: AP portable view of the chest is performed and compared to prior study of 12/30/2015. Cardiomegaly is again noted. Left pacemaker is again seen. No definite new infiltrate is seen. There is severe right thoracic scoliosis. IMPRESSION: No definite change compared to prior study, with no definite acute infiltrate. Cardiomegaly. Signed by Abhi Rao MD 08/17/2016 03:21 P
[2016-08-16 19:37] LABS: ALBUMIN/GLOBULIN RATIO 1.74 (1.00-1.93); BILIRUBIN,DIRECT 0.3 MG/DL (0.0-0.2); CALCIUM LEVEL 9.9 MG/DL (8.8-10.2); CREATININE FOR GFR 1.39 MG/DL (0.70-1.30); GLOMERULAR FILTRATION RATE 53.8 (>42); TOTAL PROTEIN 6.3 GM/DL (6.4-8.2)
[2016-08-16] MEDS ORDERED: SOD POLYSTYRENE SULFONATE SUSP 15 GM/60 ML UD PO ONE (21:00)
[2016-08-16] MEDS ORDERED: PRAV10TA3 PO (21:28)
[2016-08-16] MEDS ORDERED: NAPR550T3 PO (21:28)
[2016-08-16] MEDS ORDERED: VITMTA PO (21:28)
[2016-08-16] MEDS ORDERED: ANAC400T PO (21:28)
[2016-08-16] MEDS ORDERED: SOOL1CRE EXT (21:28)
[2016-08-16 21:47] LABS: ABG BASE EXCESS -0.9 (-2.0-2.0); ABG HCO3 33.3 MEQ/L (22.0-26.0); ABG PARTIAL PRESSURE O2 77.3 mmHg (75.0-100.0); ABG STANDARD HCO3 23.5 MEQ/L (22.0-26.0); ABG TOTAL CO2 36.4 MEQ/L (23.0-31.0)
[2016-08-16 21:48] LABS: ABG pH (ARTERIAL) 7.127 UNITS (7.350-7.450)
[2016-08-16] MEDS: FUROSEMIDE 40 MG/4 ML VIAL (J1940) IV SCH (23:11)
[2016-08-16] MEDS: GABAPENTIN 300 MG CAP PO SCH (23:15)
[2016-08-16] MEDS: CARVedilol 3.125 MG TAB PO SCH (23:15)
[2016-08-17] VITALS (45 sets, daily range): BP systolic 62–124; BP diastolic 36–67; O2SAT 93–96
[2016-08-17 00:02] LABS: OSMOLALITY URINE 339 MOSM/KG (500-800)
[2016-08-17 00:15] LABS: ABG BASE EXCESS -4.1 (-2.0-2.0); ABG HCO3 28.7 MEQ/L (22.0-26.0); ABG PARTIAL PRESSURE O2 68.2 mmHg (75.0-100.0); ABG STANDARD HCO3 20.9 MEQ/L (22.0-26.0); ABG TOTAL CO2 31.4 MEQ/L (23.0-31.0)
[2016-08-17 00:16] LABS: ABG PARTIAL PRESSURE CO2 88.2 mmHg (35.0-45.0)
[2016-08-17 01:16] LABS: ANION GAP 8 MEQ/L (8-16); BLOOD UREA NITROGEN 35 MG/DL (7-18); CARBON DIOXIDE LEVEL 30 MEQ/L (21-32); CHLORIDE LEVEL 98 MEQ/L (98-107); CREATININE FOR GFR 1.37 MG/DL (0.70-1.30); GLOMERULAR FILTRATION RATE 54.7 (>42); GLUCOSE, FASTING 107 MG/DL (83-110); MAGNESIUM LEVEL 1.3 MG/DL (1.8-2.4); SODIUM LEVEL 136 MEQ/L (136-145)
[2016-08-17 02:58] LABS: ABG BASE EXCESS 2.6 (-2.0-2.0); ABG HCO3 34.6 MEQ/L (22.0-26.0); ABG PARTIAL PRESSURE CO2 85.8 mmHg (35.0-45.0); ABG STANDARD HCO3 26.6 MEQ/L (22.0-26.0); ABG TOTAL CO2 37.3 MEQ/L (23.0-31.0); ABG pH (ARTERIAL) 7.224 UNITS (7.350-7.450)
[2016-08-17] MEDS: MAG SULF 1GM/100ML (MAG RUN) 1 GM in APPROPRIATE DILUENT 1 EA IV SCH ×3 (03:44→06:17)
[2016-08-17] MEDS ORDERED: FUROSEMIDE 40 MG/4 ML VIAL (J1940) IV ONE (03:45)
[2016-08-17] MEDS: HEPARIN SOD (PORCINE) 5000 UNITS/ML VIAL SC SCH ×3 (05:07→23:01)
[2016-08-17 05:20] LABS: MEAN CORPUSCULAR HEMOGLOBIN 33.8 pg (27.0-33.0); MEAN CORPUSCULAR HGB CONC 31.2 g/dl (32.0-36.5); MEAN CORPUSCULAR VOLUME 108.3 fl (80.0-96.0); RED CELL DISTRIBUTION WIDTH 13.1 % (11.5-14.5); WHITE BLOOD COUNT 5.2 K/mm3 (4.0-10.0)
[2016-08-17 05:35] LABS: ANION GAP 7 MEQ/L (8-16); BLOOD UREA NITROGEN 34 MG/DL (7-18); CALCIUM LEVEL 8.8 MG/DL (8.8-10.2); CARBON DIOXIDE LEVEL 34 MEQ/L (21-32); CHLORIDE LEVEL 97 MEQ/L (98-107); CREATININE FOR GFR 1.23 MG/DL (0.70-1.30); GLOMERULAR FILTRATION RATE > 60.0 (>42); GLUCOSE, FASTING 137 MG/DL (83-110); MAGNESIUM LEVEL 2.9 MG/DL (1.8-2.4); POTASSIUM SERUM 4.9 MEQ/L (3.5-5.1); SODIUM LEVEL 138 MEQ/L (136-145)
[2016-08-17 05:49] LABS: ABG BASE EXCESS 1.6 (-2.0-2.0); ABG HCO3 35.5 MEQ/L (22.0-26.0); ABG PARTIAL PRESSURE O2 98.8 mmHg (75.0-100.0); ABG STANDARD HCO3 25.8 MEQ/L (22.0-26.0); ABG TOTAL CO2 38.7 MEQ/L (23.0-31.0)
[2016-08-17 05:52] LABS: ABG PARTIAL PRESSURE CO2 103.2 mmHg (35.0-45.0); ABG pH (ARTERIAL) 7.155 UNITS (7.350-7.450)
[2016-08-17] MEDS ORDERED: ROCURONIUM BROMIDE 50 MG/5 ML VIAL As Ordered ONE (06:13)
[2016-08-17] MEDS ORDERED: ETOMIDATE INJ 20MG/10ML VIAL As Ordered ONE (06:13)
[2016-08-17] MEDS ORDERED: MIDAZOLAM INJ 2 MG/2 ML VIAL (J2250) As Ordered ONE ×2 (06:28→06:50)
[2016-08-17] MEDS ORDERED: MIDAZOLAM HCL 50 MG in D5W 40 ML IV SCH (07:00)
[2016-08-17] MEDS ORDERED: ETOMIDATE INJ 20MG/10ML VIAL IV STA (07:13)
[2016-08-17] MEDS: MIDAZOLAM HCL 100 MG in D5W 80 ML IV SCH (07:15)
[2016-08-17] MEDS ORDERED: DOPamine HCL 400 MG in APPROPRIATE DILUENT 1 EA IV SCH (07:15)
[2016-08-17] MEDS ORDERED: ROCURONIUM BROMIDE 50 MG/5 ML VIAL IV SCH (07:15)
[2016-08-17] MEDS ORDERED: REFRIGERATOR IV KEYS XX PRN ×2 (07:15→08:00)
[2016-08-17] MEDS ORDERED: DOPamine 400 MG/500 ML BAG IN D5W (800MCG/ML) (J1265) As Ordered ONE (07:17)
[2016-08-17] MEDS ORDERED: MIDAZOLAM HCL 100 MG in D5W 80 ML IV SCH (08:00)
[2016-08-17] MEDS: MIDAZOLAM INJ 2 MG/2 ML VIAL (J2250) IV PRN ×9 (08:00→23:17)
[2016-08-17] MEDS: FUROSEMIDE 40 MG/4 ML VIAL (J1940) IV SCH ×4 (08:00→23:01)
[2016-08-17] MEDS ORDERED: MIDAZOLAM INJ 2 MG/2 ML VIAL (J2250) IV ONE (08:00)
[2016-08-17] MEDS: SENOKOT S TAB PO SCH ×2 (08:01→19:43)
[2016-08-17] MEDS: CARVedilol 3.125 MG TAB PO SCH (08:01)
--- NOTE | 2016-08-17 08:23 | REP ---
AP PORTABLE CHEST: 08/17/2016, 06:46 AM. Clinical history: Status post intubation. Comparison: 08/16/2016, 12/30/2015. Findings: A single lead AICD pacer over the left upper chest with lead terminating in the right ventricle. Cardiomegaly is noted. There is now some vascular redistribution and suspected edema. An endotracheal tube is seen at the thoracic inlet almost 6 cm from the omero. Advanced dextrorotatory scoliosis again seen. Signed by Anthony Sen MD 08/17/2016 02:57 P
--- NOTE | 2016-08-17 08:24 | REP ---
AP PORTABLE CHEST: 08/17/2016 at 07:24 AM. Comparison: Earlier today, 08/16/2016, 12/30/2015. Clinical history: Tube placement. Findings: There is a nasogastric tube coursing through the mediastinum into the left upper quadrant, well into the stomach. Endotracheal tube has been advanced, but it now sits at the omero, pointing to the left mainstem bronchus and should be pulled back about 2 cm. Single lead pacer over the left chest with lead tip in the right ventricle. There is scoliosis, cardiomegaly, some vascular redistribution with pulmonary edema suggested. Effusions are difficult to exclude. Signed by Anthony Sen MD 08/17/2016 02:58 P
--- NOTE | 2016-08-17 08:24 | RO ---
DATE OF PROCEDURE: 08/17/2016 PREPROCEDURE DIAGNOSIS: Hypoxic hypercarbic respiratory failure. POSTPROCEDURE DIAGNOSIS: Hypoxic hypercarbic respiratory failure. PHYSICIAN PERFORMING PROCEDURE: Dr. Pearl Potter MACHINE WOODWORKING SANDER: Dr. Capri Mahajan ESTIMATED BLOOD LOSS: None. SEDATION: The patient was given 20 mg of etomidate and 15 mg of rocuronium intravenously. DESCRIPTION OF PROCEDURE: The patient was placed in sniff position with donut positioned behind the patient's head. Bed was flattened and raised. The patient was on bilevel positive airway pressure (BIPAP) with saturation to 96%. FiO2 for the BiPAP was increased to 100%. Video assisted Glidescope was used. BiPAP was removed. After etomidate and rocuronium was given, Glidescope was used. The patient's cords and epiglottis was visualized. Suction was used for suctioning. An 8 mm endotracheal tube was used, inserted with video Glidescope guidance. Subsequently, CO2 lens grinder apprentice was used to visualize color change and bilateral breath sounds were heard. Balloon was inflated. Bilateral breath sounds were heard. Initial lip line was around 24. Air leak was visualized. Subsequently, ET tube was advanced and bilateral breath sounds were auscultated. ET new lip line was around 26. X-ray was shot showing ET tube to be elevated. Subsequently, given the curvature of the trachea, a bougie was used to guide the ET tube down with a new lip line of 26 cm as well. Repeat x-ray was shot showing ET tube sitting right at the omero. Subsequently, instruction was given for the ET tube to be pulled back about 1 to 2 cm. The patient has a saturation above 90 with bilateral breath sounds. In the meantime, repeat ABG is ordered. The patient tolerated the procedure with no complications. Sedation of Versed drip was used. The case was discussed with Dr. Fernandez. Ventilator setting was placed with a respiratory rate of 18, tidal volume of 380, FiO2 of 50, PEEP of 5. The patient tolerated the procedure with no complications.
--- NOTE | 2016-08-17 08:29 | RO ---
DATE OF PROCEDURE: 08/16/2016 PREOPERATIVE DIAGNOSIS: cardiogenic shock POSTOPERATIVE DIAGNOSIS: cardiogenic shock PROCEDURE: Triple lumen central line. SURGEON: Pearl Potter MD SPINNER HYDRAULIC: Nursing staff Kallie. ANESTHESIA: ESTIMATED BLOOD LOSS: 10 mL. SEDATION: Patient has been intubated, given Versed 2 mg IV push and will be placed on Versed drip. VENTILATION: Patient is on the ventilator with vent setting of 18, 380, PEEP of 5, FiO2 of 50%. DESCRIPTION OF PROCEDURE: Patient was placed in supine position. Initially, ultrasound was attempted to use ultrasound to place internal jugular triple lumen central line, but unfortunately the ultrasound is malfunctioning. Given patient was hypotensive after intubation, a decision was made to put in a femoral central line for pressure support. Subsequently, patient's left groin was cleaned with Chloraprep, draped in a sterile manner. Palpation of left femoral artery was felt. A needle was inserted medial to the left femoral artery. A flash of blood was obtained showing dark red color and patient had a saturation above 90 and flash of blood was low pressure. Guidewire was inserted. Subsequently, the site is dilated with a dilator and triple lumen central line was inserted with Seldinger technique, and subsequently two stitches were placed for securing the triple central line. Dressing was placed. All three ports were flushed and clamped. Patient tolerated the procedure with no complications. Dopamine drip was started after discussing with Dr. Tilley, grades 1 through 5 teacher for pressure support. [facility]ITAL[facility]
[2016-08-17] MEDS: CHLORHEXIDINE GLUCONATE 0.12 % 15ML UDC (PERIDEX ORAL RINSE) MT SCH ×2 (08:56→19:44)
[2016-08-17] MEDS: PANTOPRAZOLE 40MG INJ (PROTONIX) (C9113) IV SCH (08:57)
[2016-08-17] MEDS: GABAPENTIN 300 MG CAP PO SCH ×2 (08:58→19:44)
[2016-08-17] MEDS: CETIRIZINE (ZyrTEC) 10 MG TAB PO SCH (08:59)
[2016-08-17] MEDS: MULTIVITAMINS/MINERALS THERAP 1 TAB PO SCH (08:59)
[2016-08-17] MEDS ORDERED: ASPIRIN ENTERIC 325 MG TAB PO SCH (09:00)
[2016-08-17 10:27] LABS: ABG BASE EXCESS 4.9 (-2.0-2.0); ABG HCO3 26.8 MEQ/L (22.0-26.0); ABG PARTIAL PRESSURE CO2 32.4 mmHg (35.0-45.0); ABG PARTIAL PRESSURE O2 101.4 mmHg (75.0-100.0); ABG STANDARD HCO3 28.9 MEQ/L (22.0-26.0); ABG TOTAL CO2 27.8 MEQ/L (23.0-31.0); ABG pH (ARTERIAL) 7.536 UNITS (7.350-7.450)
[2016-08-17 11:28] LABS: ALBUMIN 3.4 GM/DL (3.2-5.2); ALKALINE PHOSPHATASE 65 U/L (45-117); ALT/SGPT 35 U/L (12-78); ANION GAP 13 MEQ/L (8-16); AST/SGOT 50 U/L (15-37); BILIRUBIN,TOTAL 2.2 MG/DL (0.2-1.0); BLOOD UREA NITROGEN 35 MG/DL (7-18); CALCIUM LEVEL 8.9 MG/DL (8.8-10.2); CARBON DIOXIDE LEVEL 29 MEQ/L (21-32); CHLORIDE LEVEL 97 MEQ/L (98-107); CREATININE FOR GFR 1.24 MG/DL (0.70-1.30); GLOMERULAR FILTRATION RATE > 60.0 (>42); GLUCOSE, FASTING 85 MG/DL (83-110); POTASSIUM SERUM 4.2 MEQ/L (3.5-5.1); SODIUM LEVEL 139 MEQ/L (136-145); TOTAL PROTEIN 5.4 GM/DL (6.4-8.2)
--- NOTE | 2016-08-17 12:29 | CR ---
DATE OF CONSULTATION: 08/17/2016 REFERRING PHYSICIAN: Dr. Pearl Potter. REASON FOR CONSULTATION: Cardiogenic shock, nonischemic cardiomyopathy, acute on chronic systolic and diastolic heart failure. Dr. Tilley providing cardiology long weekend coverage for [facility]/Dr. Adams. Mr. 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 Rich on or around 04/2015 or 05/2015. At present, the patient is unable to provide any history because he is currently intubated, ventilated and sedated. History is obtained from available medical records in the [facility] EMR as well as from the . According to the , the patient began experiencing progressive bilateral leg/ankle edema beginning about 9 days ago. He usually has exertional dyspnea with above ordinary physical activity and in the past 9 days has had a slight deterioration of those symptoms. He has also been having increased phlegm production. was not sure of the color of the phlegm. No fever or chills. No ICD shocks. No presyncope or syncope. No embolic events. No chest pain, pressure, tightness, squeezing or heaviness with or without exertion. Patient was brought to [facility] ER and admitted yesterday (08/16/2016) with complaints of increasing peripheral edema. He was found to have heart failure and hypotension and to be cardiogenic shock. He was intubated and ventilated through the night and a central line was placed. A prior echocardiogram 04/2014 was said to show severe to moderately-severe global LV systolic dysfunction. Subsequent cardiac catheterization 05/04/2014 did not show any obstructive epicardial currencies and left ventricular function was 25%. Patient was placed on Entresto as an outpatient earlier this week (08/14/2016). 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 Hyperlipidemia. Polio during childhood. Severe scoliosis. Hyperlipidemia. Restrictive lung disease. History of prostate cancer. Spinal fusion surgery at age 15. 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 FAMILY HISTORY: Noncontributory. SOCIAL HISTORY: Lives with his . Prior smoking history which he stopped many years ago. Occasional glass of wine. REVIEW OF SYSTEMS: Cannot be obtained directly from this patient as he is presently intubated and ventilated and sedated. ADVERSE DRUG REACTION: Latex, penicillins. MEDICATIONS PRIOR TO ADMISSION: - Anacin 400 mg/32 mg one daily as needed for pain - aspirin 325 mg daily - carvedilol 1.5625 mg twice daily - Zyrtec 10 mg daily - Ensure high protein as needed - furosemide 20 mg by mouth daily - gabapentin 300 mg by mouth three times daily - Multi-Jose one daily - Naproxen 500 mg daily as needed for headaches - pravastatin 10 mg daily at bedtime - Prolia 60 mg subcutaneous as directed - Entresto 50 mg one by mouth daily - Soolantra 1% cream daily at bedtime as needed for rosacea - Viactiv one chew twice daily Patient's current medications in the hospital are as follows: - aspirin 325 mg daily - carvedilol 1.5625 mg by mouth daily - Zyrtec 10 mg daily - Peridex oral rinse twice daily - dopamine 5 mcg/kg IV - furosemide 40 mg IV every 8 hours - gabapentin 300 mg three times daily - heparin 5000 units subcutaneous every 8 hours - midazolam IV infusion, midazolam 2 mg IV every 50 minutes as needed - multivitamin one daily - nonformulary medication as directed as needed - Protonix 40 mg IV daily - pravastatin 10 mg daily at bedtime - rocuronium 15 mg IV as directed - Senokot S one tablet by mouth twice daily PHYSICAL EXAMINATION: Heart rate 88 sinus rhythm, blood pressure 88/52, respiratory rate 18, O2 saturation 96% on FiO2 50%. Presence of central line in situ. Patient is currently intubated and ventilated and sedated. He is currently on dopamine 5 mcg/kg/minute IV. Height 62 inches, weight 67.2 kg, body mass index (BMI) 27.1. man who appears his chronologic age. Currently unresponsive to verbal and noxious stimuli. Presence of an endotracheal tube via his mouth. Difficult to see inside his mouth other than oral mucosa was moist and without pallor or cyanosis. Jugular venous pulsations were difficult to assess with the patient supine but appeared to be at least 5 cm. Trachea midline. No palpable thyroid. No clubbing, cyanosis or splenic hemorrhages. No skin lesion, skin pallor or icterus. Scoliosis present. Unable to test gait as patient is intubated, ventilated and sedated. For this same reason, unable to assess gross motor strength and tone. Respiratory expansion on the ventilator was good. No wheezes. Some bibasilar crackles were present. No palpable apex beat. No left parasternal heaves, thrills or palpable heart sounds. ICD in situ left pectoral region. First and second heart sounds diminished No S3 or S4 or murmurs could be appreciated. Carotids were normal in volume and contour and without bruits. No palpable abdominal aorta. No abdominal bruits. Femoral pulses normal. Pedal pulses diminished. 4-5 mm of pitting edema was present at mid and distal tibia level bilaterally. No varicose veins. Abdomen was obese, soft, nontender with normal bowel sounds. No hepatosplenomegaly or organomegaly. Liver span difficult to assess due to abdominal obesity. Stool for occult blood not presently indicated. I have independently visualized the patient's semiupright AP portable chest x- ray acquired 08/17/2016 at 7:24 a.m. It shows presence of a single chamber ICD over the left pectoral region with single coil ICD lead in the right ventricle. Cardiomegaly. Suboptimal inspiration. Presence of an endotracheal tube. Presence of bilateral and diffuse interstitial and patchy alveolar pulmonary edema bilaterally. Scoliosis. Electrocardiogram 08/16/2016 at 1811 hours shows sinus rhythm with first degree AV block, heart rate 63 BPM, GA interval 294 ms, nonspecific intraventricular conduction delay, nonspecific ST-T abnormalities. Left atrial abnormality, probable left atrial enlargement. Abnormal ECG. Laboratory work 08/17/2016 at 4:47 a.m. shows hemoglobin 17.4, hematocrit 55.9, platelets 103. WBC 5.2. Sodium 138, potassium 4.9, chloride 97, CO2 34, BUN 34 , creatinine 1.23, estimated glomerular filtration rate greater than 60. Glucose 137, magnesium 2.9. CPK 242, CPK-MB 21%, CK-MB 8.67, troponin I 1.31. Laboratory work 08/16/2016 at 1815 hours shows BNP 1260. Laboratory work 08/16/2016 at 1853 hours shows total protein low at 6.3, albumin normal at 4.0, TSH 1.540. ASSESSMENT AND PLAN: 1. Cardiogenic shock due to nonischemic cardiomyopathy. Patient has severely decompensated systolic and diastolic heart failure associated with cardiogenic shock and interstitial and alveolar pulmonary edema. An echocardiogram-Doppler has been completed just a short time ago and I will review this later. At this point, I think the patient's prognosis is very poor with survival rate in the next 30 days to be about 10%. He has been made DO NOT RESUSCITATE status and I concur with that. Trace of inotropic agent was discussed with me by telephone earlier this morning with Dr. Pearl Potter. I recommended dopamine because the patient was hypotensive. He is on low dose dopamine at 5 mcg/kg/minute IV. Agree with IV furosemide. Continue IV furosemide 40 mg IV every 8 hours. While the patient is in cardiogenic shock, I recommend placing the carvedilol on hold. Blood pressure too low to be using an liang inhibitor, ARB or Entresto. He came in with elevated potassium level. For now, I wish to hold off on placing him on spironolactone while he requires inotropic support. 2. Nonischemic cardiomyopathy. As per cardiogenic shock category above. 3. Heart failure (systolic and diastolic, acute on chronic). As per cardiogenic shock category above. 4. [employer] single chamber ICD in situ. Stable. 5. Abnormal ECG. ECG as described above. 6. First degree AV block. Recommend holding carvedilol for now as described above. Thank you for asking me to participate in the cardiac care of Mr. Manuel Flores. [facility]ITAL[facility]
--- NOTE | 2016-08-17 13:32 | HPE ---
DATE OF ADMISSION: 08/16/2016 PRIMARY CARE PROVIDER: Dr. Shi DRIER ATTENDANT: Dr. Adams CHIEF COMPLAINT: Shortness of breath and bilateral lower extremity swelling. 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 Patient presented with a week of progressively worsening lower extremity edema and generalized weakness, shortness of breath, not on oxygen at home at baseline. Able to ambulate at baseline. Patient denies any chest pain, pressure, or discomfort. Does report that the patient lower extremity swelling is worse than before. Patient denies any fevers or chills. Reported mild cough productive of yellow phlegm. No sick contact. No recent travel. ALLERGIES: Latex and PENICILLIN. PAST MEDICAL HISTORY: 1. Polio. 2. Prostate cancer, biopsied February 2014. 3. Ischemic cardiomyopathy. 4. Congestive heart failure with systolic dysfunction, EF of 20-30%. 5. Restrictive lung disease. 6. Scoliosis. 7. Dyslipidemia. 8. Myocardial infarction. 9. Small bowel mesenteric mass. PAST SURGICAL HISTORY: 1. Resection of mesenteric mass times two with anastomosis. 2. Automatic implantable cardioverter-defibrillator (AICD) placement. SOCIAL HISTORY: Quit smoking 26 years ago. Drinks a glass of wine once or twice a week. FAMILY HISTORY: Mother with coronary artery disease, age 76. REVIEW OF SYSTEMS: A 10-point review of systems is negative except for those mentioned in the history of present illness (HPI). HOME MEDICATIONS: - Anacin 432 mg by mouth daily as needed - aspirin 325 mg by mouth daily - Coreg 1.5625 mg by mouth twice a day - Zyrtec 10 mg by mouth daily - Ensure supplementation daily as needed - Lasix 20 mg by mouth daily - Neurontin 300 mg by mouth three times a day - multivitamin one tablet by mouth daily - Naproxen 550 mg by mouth daily - pravastatin 10 mg by mouth at bedtime - Prolia 60 mg subcutaneous - Entresto recently started, 24 and 26 mg one tablet by mouth daily - Soolantra cream 1% external at bedtime as needed - Viactiv 500 mg, 500 units, and 40 mcg combination by mouth twice a day PHYSICAL EXAMINATION: VITAL SIGNS: Temperature 97.5, pulse 62, respirations 20, blood pressure 94/53, pulse oximetry 91% on 40% Venturi mask. GENERAL: Patient arousable. Mildly lethargic in no acute distress. Following commands. HEENT: Normocephalic, atraumatic. PULMONARY: Diminished breath sounds bilaterally. Mild rhonchi. CARDIAC: Regular S1, S2, distant heart sounds. ABDOMEN: Soft, obese, nontender. EXTREMITIES: Upper extremity mildly deformed. Right upper extremity slightly weaker. That is chronic as per patient due to polio. Bilateral lower extremities : 2+ edema. EKG shows sinus rhythm at 63, first-degree heart block, nonspecific ST-segment changes. WBC 4.2, hemoglobin and hematocrit 18.4/60.4, platelets 110. Chemistry: Sodium 138, potassium 6, chloride 98, bicarbonate 33, BUN 36, creatinine 1.39. Troponin 0.76. B-natriuretic peptide 1260. AB.13, 103, 77.3, 33.3. Chest x-ray shows no definite changes compared to prior. No acute cardiomegaly. No acute infiltrate. ASSESSMENT AND PLAN: This is a 71-year-old male patient with underlying medical history of polio, prostate cancer diagnosed February 2014, ischemic cardiomyopathy, ejection fraction of 20-30%, congestive heart failure with systolic dysfunction, restrictive lung disease, dyslipidemia, scoliosis, myocardial infarction, history of a small-bowel mesenteric mass, presented with bilateral lower extremity swelling. Was found to have hyperkalemia with acute renal failure as well as cardiac enzyme leakage, congestive heart failure (CHF), and hypercarbic hypoxic respiratory failure. 1. Combined hypercarbic hypoxic respiratory failure, possibly secondary to acute CHF exacerbation with underlying restrictive lung disease. Patient was placed on bilevel positive airway pressure (BiPAP) /. Oxygen supplementation provided. Repeat arterial blood gases (ABGs). Chest x-ray is appreciated. Will consult rehab specialist, Dr. Fernandez for BiPAP management in the morning. Will treat for underlying CHF exacerbation as below. Will follow negative inspiratory force (NIF) and vital capacity to assess respiratory effort. 2. Acute systolic congestive heart failure. Ejection fraction of 20-30%. Lasix, strict intake and output, followup echocardiogram, repeat cardiac enzymes. Will consult aquatics instructor in the morning. Trend cardiac enzymes. Diuresis, strict intake and output, Curtis catheter for strict intake and output. Continue aspirin , statin. 3. Cardiac enzyme elevations, likely secondary to CHF exacerbation with underlying severe ischemic cardiomyopathy. Trend cardiac enzymes. Continue aspirin and statin. likely 2/2 to severe CHF. Diuresis with Lasix. Dr. Dunlap has discussed the case with Dr. Tilley. Will officially consult Dr. Tilley in the morning. 4. Acute renal insufficiency with hyperkalemia. Kayexalate was given in the emergency room. Lasix has been given. Possibly secondary to cardiorenal. Will obtain renal ultrasound, urine studies. Consider consulting nephrology in the morning. Lasix has been given. Repeat basic metabolic panel. Possible etiology, including medication. Patient was recently started on Entresto. Will continue to follow. 5. Dyslipidemia. Continue statin. 6. Restrictive lung disease. Patient currently on BiPAP. Will followup ABGs, vital capacities. 7. History of prostate cancer. Will need outpatient followup. 8. Scoliosis. Supportive care. 9. Deep vein thrombosis (DVT) prophylaxis. Heparin subcutaneous. DISPOSITION PLANNING: Pending clinical improvement, further workup. MTDD
[2016-08-17 14:43] LABS: ABG BASE EXCESS 8.1 (-2.0-2.0); ABG HCO3 30.5 MEQ/L (22.0-26.0); ABG PARTIAL PRESSURE CO2 35.5 mmHg (35.0-45.0); ABG PARTIAL PRESSURE O2 67.5 mmHg (75.0-100.0); ABG STANDARD HCO3 31.8 MEQ/L (22.0-26.0); ABG TOTAL CO2 31.6 MEQ/L (23.0-31.0); ABG pH (ARTERIAL) 7.552 UNITS (7.350-7.450)
--- NOTE | 2016-08-17 15:30 | ECHO ---
DATE OF PROCEDURE: 08/17/2016 REFERRING PHYSICIAN: Pearl Potter MD INDICATION: Dyspnea. HEIGHT: 62 inches WEIGHT: 67.2 kg 2D MEASUREMENTS: LVOT: 1.9 cm Left atrium: 3.7 cm Ventricular septum: 1.21 cm Posterior wall: 0.91 cm Left ventricle diastole: 3.7 cm Aortic root: 3.2 cm Inferior vena cava: 2.2 cm DOPPLER MEASUREMENTS: Aortic valve velocity: 160 cm/s LVOT velocity: 99.6 cm/s LVOT VTI: 12.4 cm Mitral E velocity: (CW) 189 cm/s Mitral deceleration time: 123 ms Trace tricuspid regurgitation. Estimated right ventricle systolic pressure 50 mmHg assuming a right atrial pressure of 10 mmHg. MITRAL ANNULAR TISSUE DOPPLER: E prime septal: 6.7 cm/s E prime lateral: 7.6 cm/s DESCRIPTION: Rhythm was predominantly sinus tachycardia. First degree atrioventricular (AV) sinus. This is a moderately technically difficult echocardiogram. No pericardial effusion. This is a 2D, M-mode, color flow Doppler and pulse wave Doppler examination that included mitral annular tissue Doppler. CONCLUSIONS: 1. Moderately technically difficult for endocardiac visualization and therefore for precise regional wall motion analysis. Visual appearance of probably global hypokinesis with severe reduction of overall LV systolic function. Left ventricular ejection fraction (LVEF) 20-25% by visual estimate. Normal LV wall thickness. 2. Moderate mitral annular calcification. No mitral regurgitation. No mitral stenosis. 3. Suggestive of moderate elevation of estimated right ventricle systolic pressure. 4. Presence of endocardial ICD lead in the right ventricle apex. 5. Moderately technically difficult echocardiogram.
--- NOTE | 2016-08-17 16:00 | REP ---
RENAL ULTRASOUND: Real-time sonographic of the kidneys performed. Kidneys appear mildly atrophic. Right kidney measures 8.0 x 4.3 x 4.3 cm and left kidney 9.0 x 4.4 x 4.3 cm. There is no hydronephrosis bilaterally. No renal mass or nephrolithiasis is seen. Curtis catheter is seen in the urinary bladder. IMPRESSION: No hydronephrosis or other significant renal abnormality. Kidneys appear mildly atrophic particularly on the right. Signed by Abhi Rao MD 08/17/2016 04:55 P
[2016-08-17] MEDS: DOPamine HCL 400 MG in APPROPRIATE DILUENT 1 EA IV SCH (17:32)
[2016-08-17] MEDS: ACETAMINOPHEN 650 MG SUPP PR PRN (19:43)
[2016-08-17] MEDS: PRAVASTATIN 10 MG TAB PO SCH (19:44)
--- NOTE | 2016-08-17 22:54 | CCN ---
DATE: 08/17/2016 I was asked by Dr. Potter to emergently evaluate Mr. Flores for acute and chronic respiratory failure that resulted in intubation and mechanical ventilation. I had been contacted earlier in the morning by Dr. Potter with his acute and chronic respiratory failure for advice on non-invasive mechanical ventilation. Attempts were made with initially some improvement in his arterial blood gas, but then he more acutely worsened, necessitating intubation. Mr. Flores's past medical history is significant for nonischemic dilated cardiomyopathy, chronic systolic and diastolic failure, status post automatic implantable cardioverter-defibrillator (AICD), restrictive chest disease secondary to severe scoliosis, history of childhood polio, and remote history of tobacco usage. He presented to the emergency department yesterday because of increased lower extremity edema, increased shortness of breath, and cough. His symptoms have been going on for about 9 days. He was found to have congestive heart failure as well as acute and chronic hypercapnic respiratory failure. When he was intubated, he then became hypotensive. He is now on dopamine, sedated, and mechanically ventilated. ALLERGIES: Latex and PENICILLIN. MEDICATIONS ON ADMISSION: - Anacin as needed - aspirin 325 mg by mouth daily - carvedilol 1.5625 mg twice daily - Zyrtec 10 mg daily - Ensure as needed - Lasix 20 mg by mouth daily - gabapentin 300 mg by mouth three times a day - multivitamin one by mouth daily - naproxen 500 mg by mouth as needed - pravastatin 10 mg by mouth daily - Prolia 60 mg subcutaneous - Entresta 50 mg one by mouth daily (recent new medication) - Viactiv twice a day PHYSICAL EXAMINATION: GENERAL: Mr. Flores is sedated and synchronous with the ventilator. He is not over-breathing the ventilator. VITAL SIGNS: Temperature 98.4, respiratory rate 18, blood pressure 103/56 with a mean arterial pressure (MAP) of 72, SpO2 94% on a FiO2 of 0.5. HEENT: Anicteric, pupils equal, round, reactive to light (PERRL). Nares patent bilaterally. Moist mucosa. Oropharynx: Clear. Moist mucosa. Endotracheal (ET) tube and orogastric (OG) tube in place. NECK: Without thyromegaly or masses. Trachea is midline. LYMPHATICS: Without cervical or supraclavicular lymphadenopathy. CHEST: Notable for scoliosis. LUNGS: Symmetric excursion. Good air entry. Bilateral rhonchi. Bibasilar crackles. No wheezes. Normal Inspiratory to expiratory (I-to-E). No accessory muscle usage or retractions. CARDIOVASCULAR: Regular rate and rhythm with a normal S1, S2. No murmur, rub, or gallop appreciated. ABDOMEN: Positive but diminished bowel sounds. Soft, nondistended, nontender. No hepatosplenomegaly or masses appreciated. EXTREMITIES: Cool, 3-4+ pedal edema bilaterally with slight discoloration. There is 1-2+ pretibial edema to the knees without clubbing. LABORATORY DATA: CBC showed a hemoglobin of 17.4, hematocrit of 55.6, platelet count 103,000, white blood cell count 5200. Chemistries showed a sodium 139, potassium 4.2, chloride 97, bicarbonate 29, anion gap 13, BUN 35, creatinine 0.2, glucose 85, calcium 8.9. Total bilirubin 2.2, AST 50, ALT 35, alkaline phosphatase 65, CK 793, CK-MB 31.4, troponin I 1.68, total protein 5.4, albumin 3.4. Urinalysis (UA) showed his urine to be cloudy with a pH of 5, specific gravity 1.02, 2+ protein, 2 WBC, 3 RBC, negative bacteria, negative nitrite. His initial arterial blood gas upon presentation to the hospital last night was 7.13/103/77 with a measured saturation 92% and a base excess of -0.9. Arterial blood gas after intubation was 7.54/32/101 with a measured saturation of 99% and a base excess of 4.9. I reviewed several chest x-rays with his most recent being after advancement of the endotracheal tube this morning. That x-ray showed cardiomegaly as well as chest wall changes secondary to scoliosis. There are increased interstitial markings. The endotracheal tube was about at the level of the omero. IMPRESSION: 1. Acute hypercapnic respiratory failure secondary to congestive heart failure in the setting of chronic respiratory failure from chest wall disease. 2. Cardiogenic shock. 3. Restrictive chest wall disease secondary to severe scoliosis. 4. Congestive heart failure (CHF), both diastolic and systolic. 5. Nonischemic cardiomyopathy. 6. Elevated troponin. 7. Stress ulcer prophylaxis in place with proton pump inhibitor. 8. Deep vein thrombosis (DVT) prophylaxis in place with subcutaneous heparin. 9. Nutrition. Currently nothing by mouth. RECOMMENDATIONS: 1. Continue ventilatory support. 2. Will make adjustments to eliminate his iatrogenic metabolic alkalosis. I will decrease his rate but also would like to decrease his tidal volume given his restrictive lung disease, although his plateau pressure is only 19 at the present time. 3. Appreciate cardiology's input in regard to management of heart failure and cardiogenic shock. 4. Will continue dopamine for the present time. CRITICAL CARE TIME: 55 minutes not including procedure time. [facility]UVIA
[2016-08-18] VITALS (25 sets, daily range): BP systolic 85–114; BP diastolic 49–62; O2SAT 94–96
[2016-08-18] MEDS: MIDAZOLAM INJ 2 MG/2 ML VIAL (J2250) IV PRN ×14 (02:09→22:49)
[2016-08-18] MEDS: MORPHINE 2 MG/ML 1ML SYRINGE IV PRN ×3 (03:33→22:51)
[2016-08-18] MEDS: HEPARIN SOD (PORCINE) 5000 UNITS/ML VIAL SC SCH ×3 (05:39→21:50)
[2016-08-18] MEDS: DOPamine HCL 400 MG in APPROPRIATE DILUENT 1 EA IV SCH ×2 (05:39→21:52)
[2016-08-18 05:49] LABS: MEAN CORPUSCULAR HEMOGLOBIN 32.5 pg (27.0-33.0); MEAN CORPUSCULAR HGB CONC 32.3 g/dl (32.0-36.5); RED CELL DISTRIBUTION WIDTH 13.4 % (11.5-14.5); WHITE BLOOD COUNT 5.5 K/mm3 (4.0-10.0)
[2016-08-18 05:53] LABS: MEAN CORPUSCULAR VOLUME 100.6 fl (80.0-96.0)
[2016-08-18 06:06] LABS: ANION GAP 11 MEQ/L (8-16); BLOOD UREA NITROGEN 29 MG/DL (7-18); CARBON DIOXIDE LEVEL 35 MEQ/L (21-32); CHLORIDE LEVEL 94 MEQ/L (98-107); CREATININE FOR GFR 0.91 MG/DL (0.70-1.30); GLOMERULAR FILTRATION RATE > 60.0 (>42); GLUCOSE, FASTING 117 MG/DL (83-110); MAGNESIUM LEVEL 1.8 MG/DL (1.8-2.4); SODIUM LEVEL 140 MEQ/L (136-145)
[2016-08-18 06:10] LABS: ALBUMIN 2.9 GM/DL (3.2-5.2); ALBUMIN/GLOBULIN RATIO 1.38 (1.00-1.93); ALKALINE PHOSPHATASE 70 U/L (45-117); ALT/SGPT 33 U/L (12-78); AST/SGOT 58 U/L (15-37); BLOOD UREA NITROGEN 29 MG/DL (7-18); CALCIUM LEVEL 8.9 MG/DL (8.8-10.2); CARBON DIOXIDE LEVEL 34 MEQ/L (21-32); CHLORIDE LEVEL 95 MEQ/L (98-107); CHOLESTEROL LEVEL 148 MG/DL (< 200); CREATININE FOR GFR 0.91 MG/DL (0.70-1.30); GLOMERULAR FILTRATION RATE > 60.0 (>42); GLUCOSE, FASTING 114 MG/DL (83-110); PHOSPHORUS LEVEL 2.1 MG/DL (2.5-4.9); TRIGLYCERIDES LEVEL 136 MG/DL (<150)
[2016-08-18 06:15] LABS: ANION GAP 13 MEQ/L (8-16); SODIUM LEVEL 142 MEQ/L (136-145)
[2016-08-18] MEDS: FUROSEMIDE 40 MG/4 ML VIAL (J1940) IV SCH ×2 (08:07→16:26)
[2016-08-18] MEDS: KCL 20MEQ IN 100ML SWI (KRUN) 20 MEQ in APPROPRIATE DILUENT 1 EA IV SCH ×4 (08:08→09:35)
--- NOTE | 2016-08-18 08:46 | REP ---
REASON: Followup intubation. The technique utilized in obtaining the radiograph has magnified the cardiac silhouette and accentuated the interstitial markings. Nasogastric tube and endotracheal tube is status quo. Single chamber bipolar pacemaker device is stable. The cardiomediastinal silhouette is unchanged. There is a new right lower lobe opacity. There is no change in the osseous structures. IMPRESSION: New right lower lobe opacity possibly reflecting pneumonia. Certainly subsegmental atelectatic change could be responsible for this plain portable radiographic finding. Correlate clinically and if possible obtain PA and lateral views of the chest. Other findings as described above. Signed by Carl Smalls DO 08/18/2016 08:49 A
[2016-08-18] MEDS: CHLORHEXIDINE GLUCONATE 0.12 % 15ML UDC (PERIDEX ORAL RINSE) MT SCH ×2 (09:34→21:48)
[2016-08-18] MEDS: GABAPENTIN 300 MG CAP PO SCH ×2 (09:34→21:47)
[2016-08-18] MEDS: SENOKOT S TAB PO SCH ×2 (09:34→21:45)
[2016-08-18] MEDS: CETIRIZINE (ZyrTEC) 10 MG TAB PO SCH (09:34)
[2016-08-18] MEDS: PANTOPRAZOLE 40MG INJ (PROTONIX) (C9113) IV SCH (09:35)
[2016-08-18] MEDS: MULTIVITAMINS/MINERALS THERAP 1 TAB PO SCH (09:48)
[2016-08-18] MEDS: ALBUTEROL SULFATE 2.5 MG/0.5 ML INH NEB SOLN NEB SCH ×4 (12:00→23:46)
--- NOTE | 2016-08-18 12:52 | ECGEPIP ---
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 Electronically Signed On 08-18-2016 12:52:16 EDT by Duglas Tilley
[2016-08-18 12:54] LABS: ABG BASE EXCESS 9.4 (-2.0-2.0); ABG HCO3 34.2 MEQ/L (22.0-26.0); ABG PARTIAL PRESSURE CO2 44.5 mmHg (35.0-45.0); ABG PARTIAL PRESSURE O2 78.8 mmHg (75.0-100.0); ABG STANDARD HCO3 33.1 MEQ/L (22.0-26.0); ABG TOTAL CO2 35.5 MEQ/L (23.0-31.0); ABG pH (ARTERIAL) 7.503 UNITS (7.350-7.450)
[2016-08-18] MEDS: MIDAZOLAM HCL 100 MG in D5W 80 ML IV SCH (20:55)
[2016-08-18] MEDS: PRAVASTATIN 10 MG TAB PO SCH (21:47)
[2016-08-18] MEDS ORDERED: DOPamine HCL 400 MG in APPROPRIATE DILUENT 1 EA IV SCH (22:15)
[2016-08-19] VITALS (41 sets, daily range): BP systolic 70–118; BP diastolic 39–72; O2SAT 93
[2016-08-19] MEDS: FUROSEMIDE 40 MG/4 ML VIAL (J1940) IV SCH ×4 (00:29→23:02)
[2016-08-19] MEDS: MIDAZOLAM INJ 2 MG/2 ML VIAL (J2250) IV PRN ×8 (00:41→10:35)
[2016-08-19] MEDS: ALBUTEROL SULFATE 2.5 MG/0.5 ML INH NEB SOLN NEB SCH ×3 (03:45→12:58)
[2016-08-19] MEDS: HEPARIN SOD (PORCINE) 5000 UNITS/ML VIAL SC SCH ×3 (05:22→21:18)
[2016-08-19 05:56] LABS: MEAN CORPUSCULAR HEMOGLOBIN 33.3 pg (27.0-33.0); MEAN CORPUSCULAR HGB CONC 33.1 g/dl (32.0-36.5); MEAN CORPUSCULAR VOLUME 100.8 fl (80.0-96.0); RED CELL DISTRIBUTION WIDTH 13.4 % (11.5-14.5); WHITE BLOOD COUNT 5.9 K/mm3 (4.0-10.0)
[2016-08-19 06:20] LABS: ALBUMIN 2.9 GM/DL (3.2-5.2); ALBUMIN/GLOBULIN RATIO 1.38 (1.00-1.93); ALKALINE PHOSPHATASE 70 U/L (45-117); ALT/SGPT 30 U/L (12-78); ANION GAP 9 MEQ/L (8-16); AST/SGOT 48 U/L (15-37); BILIRUBIN,TOTAL 2.2 MG/DL (0.2-1.0); BLOOD UREA NITROGEN 29 MG/DL (7-18); CALCIUM LEVEL 8.2 MG/DL (8.8-10.2); CARBON DIOXIDE LEVEL 39 MEQ/L (21-32); CHLORIDE LEVEL 91 MEQ/L (98-107); CHOLESTEROL LEVEL 139 MG/DL (< 200); CREATININE FOR GFR 0.86 MG/DL (0.70-1.30); GLOMERULAR FILTRATION RATE > 60.0 (>42); GLUCOSE, FASTING 133 MG/DL (83-110); MAGNESIUM LEVEL 1.5 MG/DL (1.8-2.4); PHOSPHORUS LEVEL 3.1 MG/DL (2.5-4.9); SODIUM LEVEL 139 MEQ/L (136-145); TRIGLYCERIDES LEVEL 116 MG/DL (<150)
[2016-08-19] MEDS ORDERED: MIDAZOLAM HCL 50 MG in D5W 40 ML IV SCH (07:00)
[2016-08-19] MEDS: MORPHINE 2 MG/ML 1ML SYRINGE IV PRN (07:54)
--- NOTE | 2016-08-19 08:38 | ECGEPIP ---
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
[2016-08-19] MEDS: PANTOPRAZOLE 40MG INJ (PROTONIX) (C9113) IV SCH (08:44)
[2016-08-19] MEDS: GABAPENTIN 300 MG CAP PO SCH ×2 (08:49→21:14)
[2016-08-19] MEDS: CHLORHEXIDINE GLUCONATE 0.12 % 15ML UDC (PERIDEX ORAL RINSE) MT SCH (08:49)
[2016-08-19] MEDS: SENOKOT S TAB PO SCH ×2 (08:49→21:15)
[2016-08-19] MEDS: CETIRIZINE (ZyrTEC) 10 MG TAB PO SCH (08:49)
[2016-08-19] MEDS: MULTIVITAMINS/MINERALS THERAP 1 TAB PO SCH (08:50)
--- NOTE | 2016-08-19 09:23 | REP ---
Status post intubation. COMPARISON: The endotracheal tube and nasogastric tube are unchanged. The cardiomediastinal silhouette is unchanged. Opacities seen previously in the right lower lobe appear less dense. Suspected left lower lobe opacity also appears less dense. The technique utilized in obtaining the radiograph has magnified the cardiac silhouette and accentuated the interstitial markings. No change in the pacemaker device or osseous structures. IMPRESSION: No change in the tubes. Possible lung improvement as described above. Signed by Carl Smalls DO 08/19/2016 09:26 A
[2016-08-19] MEDS: MAG SULF 1GM/100ML (MAG RUN) 1 GM in APPROPRIATE DILUENT 1 EA IV SCH ×2 (09:52→10:57)
[2016-08-19 09:58] LABS: ABG BASE EXCESS 11.7 (-2.0-2.0); ABG HCO3 38.6 MEQ/L (22.0-26.0); ABG PARTIAL PRESSURE CO2 55.7 mmHg (35.0-45.0); ABG PARTIAL PRESSURE O2 81.4 mmHg (75.0-100.0); ABG STANDARD HCO3 35.5 MEQ/L (22.0-26.0); ABG TOTAL CO2 40.3 MEQ/L (23.0-31.0); ABG pH (ARTERIAL) 7.459 UNITS (7.350-7.450)
[2016-08-19] MEDS ORDERED: SLF 3 ML SYR IV PRN (11:15)
[2016-08-19] MEDS ORDERED: SODIUM CHLORIDE 0.9% INJ 10 ML SYR IV PRN (11:15)
[2016-08-19] MEDS: KCL 20MEQ IN 100ML SWI (KRUN) 20 MEQ in APPROPRIATE DILUENT 1 EA IV SCH ×6 (12:10→14:03)
[2016-08-19 12:37] LABS: ABG BASE EXCESS 10.5 (-2.0-2.0); ABG HCO3 39.4 MEQ/L (22.0-26.0); ABG PARTIAL PRESSURE O2 64.5 mmHg (75.0-100.0); ABG STANDARD HCO3 34.1 MEQ/L (22.0-26.0); ABG TOTAL CO2 41.4 MEQ/L (23.0-31.0); ABG pH (ARTERIAL) 7.396 UNITS (7.350-7.450)
[2016-08-19 12:38] LABS: ABG PARTIAL PRESSURE CO2 65.6 mmHg (35.0-45.0)
--- NOTE | 2016-08-19 12:52 | IPN ---
DATE OF SERVICE: 08/19/2016 TIME OF SERVICE: 11:53 a.m. The patient is currently intubated, ventilated, and sedated. PHYSICAL EXAMINATION: Temperature 98.1. He is currently on dopamine 10 mcg per kg per minute intravenous (IV). Pulse 84 regular, respiratory rate 12 on the ventilator, blood pressure (BP) 105/57, oxygen (O2) saturation 94% on the ventilator with FiO2 of 0.4. Jugular venous pulsations were to a level of 8 cm. Respiratory expansion was fair. A few faint crackles were present bilaterally at both bases. No wheezes. First and second heart sounds diminished. No S3 or S4 murmurs appreciated. Trace pitting edema in the lower extremities. Weight today 64.8 kg. Input and output for the 24 hours of 08/18/2016 showed net fluid positive 180 mL. LABORATORY WORK: 08/19/2016 shows sodium 139, potassium 3.0, chloride 91, CO2 39, BUN 29, estimated GFR greater than 60, glucose 133, magnesium 1.5. I have independently visualized the patient's portable sitting chest x-ray 08/19/2016. It shows cardiomegaly. Presence of a single-chamber implantable cardioverter-defibrillator (ICD). Presence of bilateral interstitial edema, probable bilateral small pleural effusions. Patchy alveolar edema left lung clancy and more extensive alveolar edema right lung clancy. Distorted chest cavity. ASSESSMENT AND PLAN: 1. Cardiogenic shock. The patient remains in cardiogenic shock and is currently on dopamine 10 mcg per kg per minute intravenous (IV). I have rewritten the dopamine order to titrate to a maximum of 10 mcg per kg per minute IV to maintain systolic blood pressure 90-100. This patient's prognosis is quite poor with an approximately 10% chance of survival at 30 days. I relayed to the patient's , who is at the bedside. He is currently DO NOT RESUSCITATE (DNR) status. Continue furosemide 40 mg IV every 8 hours. He is receiving potassium supplementation. He has also received magnesium sulfate IV. 2. Nonischemic cardiomyopathy. As per cardiogenic shock category above. 3. Heart failure (systolic and diastolic, acute on chronic). As per cardiogenic shock category above. 4. Implantable cardioverter-defibrillator (ICD) in situ. Stable. If this patient is made comfort care, then his ICD tachycardia therapy should be turned off. 5. Abnormal electrocardiogram (ECG). Stable. 6. First-degree AV block. Stable. He is not presently on any AV sebastian slowing medications. Dr. Yadiel Adams should be back some time tomorrow and take over this patient's in-hospital cardiac care. NUVIA
[2016-08-19] MEDS: SODIUM CHLORIDE 0.9% INJ 10 ML SYR IV SCH ×2 (14:02→21:17)
[2016-08-19] MEDS: SLF 3 ML SYR IV SCH ×2 (14:03→21:18)
[2016-08-19] MEDS ORDERED: ALBUTEROL SULFATE 2.5 MG/0.5 ML INH NEB SOLN NEB PRN (15:15)
[2016-08-19] MEDS: DOPamine HCL 800 MG in APPROPRIATE DILUENT 1 EA IV SCH (16:25)
[2016-08-19] MEDS: PRAVASTATIN 10 MG TAB PO SCH (21:15)
--- NOTE | 2016-08-19 21:30 | CCN ---
DATE: 08/18/2016 Mr. Flores remains critically ill with acute hypercapnic and hypoxemic respiratory failure felt secondary to congestive heart failure (CHF) in the setting of restrictive chest disease. He is still requiring dopamine to maintain his blood pressure. It is known that he typically runs low blood pressures, and the goal is a systolic blood pressure around 90. On multiple bedside weaning trials, he would not trigger the ventilator. This was not felt to be secondary to an alkalemia but rather in part secondary to sedation (he had initially received Versed 45 minutes before the first attempts, but was still not successful when tried 2 hours after the Versed dosing). He is not on any continuous sedation and has been receiving 2 mg of Versed about every hour. Intermittently, when he is alert, he does not indicate any discomfort except for the Curtis catheter. He has minimal secretions and a strong cough. OBJECTIVE: PHYSICAL EXAMINATION: GENERAL: Mr. Flores is lying in bed appearing synchronous with the ventilator and in no acute distress. HEENT: Anicteric. Nares patent bilaterally. Oropharynx: Endotracheal (ET) tube and orogastric (OG) tube in place. NECK: Supple without thyromegaly or masses. Trachea is midline. LYMPHATICS: Without cervical or supraclavicular lymphadenopathy. LUNGS: Symmetric excursion. Fair air entry. No wheeze or rhonchi. Bibasilar crackles. Normal inspiratory to expiratory (I-to-E). No accessory muscle usage or retractions. CARDIOVASCULAR: Regular rate and rhythm with a normal S1, S2. No murmur, rub, or gallop appreciated. ABDOMEN: Positive bowel sounds, soft, nondistended. EXTREMITIES: Thromboembolic deterrents (TEDs) in place today, but it still appears that there is decreased pedal and pretibial edema. LABORATORY DATA: CBC shows a hemoglobin 19.5, hematocrit of 60.4, platelet count 105,000, white blood cell count 5500. Chemistry shows sodium 142, potassium 3.0, chloride 95, bicarbonate 34, anion gap 13, BUN 29, creatinine 0.9, glucose 114, calcium 8.9, phosphorus 2.1. Total bilirubin 3.0, AST 58, ALT 33, alkaline phosphatase 70, LDH 340, CK 327, total protein 5.0, albumin 2.9. BNP 1140. Yesterday's intake and output showed 956 in and 2280 out, making him negative 1324. Thus far today 250 and 850 out, making him negative 600. Weight 65 kg. Sputum Gram stain from yesterday elicited many gram-positive cocci in clusters and chains. Few gram-negative rods. Few gram-positive rods. I reviewed his chest x-ray as well as the report from earlier today. That x-ray is very difficult to interpret given the significant scoliosis. There did appear to be a haziness at the right base that was new. He still has increased interstitial marking and an enlarged cardiac silhouette. Arterial blood gas that was drawn on pressure-regulated volume control (PRVC) with a tidal volume of 340, rate of 10, and FiO2 of 0.4 was 7.5/45/79 with a measured saturation of 96%. IMPRESSION: 1. Acute and chronic hypoxemic and hypercapnic respiratory failure, felt secondary to congestive heart failure (CHF) in the setting of restrictive chest disease. Because of his body habitus, it is difficult to fully assess how he has clinically responded. He has had some diuresis, and his exam does not show the rhonchi as it did yesterday. He does not have significant frothy secretions. His BNP remains elevated. 2. Hypotension, felt secondary to cardiogenic shock, on dopamine. 3. 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 4. Decompensated diastolic/systolic congestive heart failure (CHF), per cardiology. 5. Nonischemic cardiomyopathy. 6. Chronic respiratory failure secondary to restrictive lung disease. 7. Severe scoliosis. 8. Deep vein thrombosis (DVT) prophylaxis with subcutaneous heparin. 9. Stress ulcer prophylaxis. Proton pump inhibitor. 10. Nutrition. Currently nothing by mouth. RECOMMENDATIONS: 1. Mr. Flores is not weanable today based on multiple attempts this morning. Hopefully with further diuresis, he will be weanable tomorrow. 2. Given his restrictive chest process, will obtain an arterial blood gas after an initial weaning trial pressure support of 5/5 when he reaches that level; however, given his cardiac disease and CHF, will then go onto a T-piece trial. 3. Given that I am not certain he will be extubated tomorrow, will start tube feeds today. 4. Will also start bronchodilators given probably atelectasis at the right base. 5. Polycythemia. As he is being diuresed, he has developed significant polycythemia. Consideration will have to be given at some point in time for phlebotomy in the near future if this persists. PROGNOSIS: Guarded. CRITICAL CARE TIME: 1 hour, not including procedure time. MTDD
[2016-08-20] VITALS (25 sets, daily range): BP systolic 84–123; BP diastolic 49–70
[2016-08-20] MEDS: SLF 3 ML SYR IV SCH ×3 (05:46→21:32)
[2016-08-20] MEDS: SODIUM CHLORIDE 0.9% INJ 10 ML SYR IV SCH ×3 (05:46→21:32)
[2016-08-20] MEDS: HEPARIN SOD (PORCINE) 5000 UNITS/ML VIAL SC SCH (06:00)
[2016-08-20 06:15] LABS: MEAN CORPUSCULAR HEMOGLOBIN 33.2 pg (27.0-33.0); MEAN CORPUSCULAR HGB CONC 31.9 g/dl (32.0-36.5); MEAN CORPUSCULAR VOLUME 104.1 fl (80.0-96.0); RED CELL DISTRIBUTION WIDTH 13.2 % (11.5-14.5); WHITE BLOOD COUNT 6.6 K/mm3 (4.0-10.0)
[2016-08-20 06:33] LABS: ALBUMIN 3.2 GM/DL (3.2-5.2); ALBUMIN/GLOBULIN RATIO 1.45 (1.00-1.93); ALKALINE PHOSPHATASE 73 U/L (45-117); ALT/SGPT 30 U/L (12-78); ANION GAP 6 MEQ/L (8-16); AST/SGOT 43 U/L (15-37); BILIRUBIN,TOTAL 1.8 MG/DL (0.2-1.0); BLOOD UREA NITROGEN 18 MG/DL (7-18); CALCIUM LEVEL 8.2 MG/DL (8.8-10.2); CARBON DIOXIDE LEVEL 41 MEQ/L (21-32); CHLORIDE LEVEL 91 MEQ/L (98-107); CHOLESTEROL LEVEL 157 MG/DL (< 200); CREATININE FOR GFR 0.57 MG/DL (0.70-1.30); GLOMERULAR FILTRATION RATE > 60.0 (>42); GLUCOSE, FASTING 109 MG/DL (83-110); MAGNESIUM LEVEL 2.4 MG/DL (1.8-2.4); PHOSPHORUS LEVEL 3.3 MG/DL (2.5-4.9); POTASSIUM SERUM 4.2 MEQ/L (3.5-5.1); SODIUM LEVEL 138 MEQ/L (136-145); TOTAL PROTEIN 5.4 GM/DL (6.4-8.2); TRIGLYCERIDES LEVEL 97 MG/DL (<150)
[2016-08-20] MEDS: ACETAMINOPHEN 650 MG SUPP PR PRN ×2 (07:13→21:40)
[2016-08-20] MEDS: FUROSEMIDE 40 MG/4 ML VIAL (J1940) IV SCH (08:00)
[2016-08-20] MEDS: MULTIVITAMINS/MINERALS THERAP 1 TAB PO SCH (08:24)
[2016-08-20] MEDS: GABAPENTIN 300 MG CAP PO SCH ×2 (08:24→20:10)
[2016-08-20] MEDS: CETIRIZINE (ZyrTEC) 10 MG TAB PO SCH (08:24)
[2016-08-20] MEDS: SENOKOT S TAB PO SCH ×2 (08:24→21:00)
[2016-08-20] MEDS: PANTOPRAZOLE 40MG INJ (PROTONIX) (C9113) IV SCH (08:24)
--- NOTE | 2016-08-20 08:33 | REP ---
Portable chest x-ray: Single view. History: Intubated patient. Comparison study August 19, 2016. Findings: No endotracheal tube is seen. A unipolar pacemaker is noted in the right heart via the left side. The nasogastric tube is withdrawn as well since the prior study. Severe rotoscoliosis is again seen. Moderate cardiomegaly is observed. No definite infiltrate is seen. Pulmonary vascular markings are somewhat increased. Signed by Don Ramirez MD 08/20/2016 12:06 P
--- NOTE | 2016-08-20 10:52 | CCN ---
DATE: 08/19/2016 NOTE: Mr. Flores remains critically ill with acute hypoxic and hypercapnic respiratory failure secondary to underlying restrictive chest process and congestive heart failure (CHF). Overnight he did have an episode of mucous plugging which resolved with suctioning. He is still on dopamine drip per cardiology given his cardiogenic shock. He is tolerating tube feeds. He remains sedated but is requiring minimal sedation with Versed 1 mg one to two times per hour. OBJECTIVE: PHYSICAL EXAMINATION: Vital signs: Temperature 98.1 with a T-max of 98.7, pulse 84, respiratory rate 12, blood pressure 105/57 with a map of 73, SpO2 94% on an FiO2 0.4. General: Mr. Flores is intubated and synchronous with the ventilator. HEENT: Mildly icteric, pupils equal, round, reactive to light and accommodation. Nares: Patent bilaterally with moist mucosa. Oropharynx: ET tube and OG tube in place. Neck: Supple without thyromegaly, masses. Trachea is midline. Lymph: Without cervical or supraclavicular lymphadenopathy. Lungs: Symmetric excursion, fair air entry, no wheeze, rhonchi or significant crackle on tidal excursion. Normal I:E. No accessory muscle usage or retractions. Cardiovascular: Regular rate and rhythm with a normal S1, S2. No murmur, rub or gallop appreciated. Abdomen: Positive bowel sounds, soft, nondistended, no hepatosplenomegaly or masses appreciated. Extremities: 1-2+ pedal edema bilaterally and trace pretibial edema bilaterally. Sequential compression devices (SCD) and thromboembolic deterrent stockings (TEDS) in place. LABORATORY DATA: CBC shows a hemoglobin of 17.5, hematocrit 52.8, platelet count 103,000, white blood cell count 5900. Chemistry shows a sodium 139, potassium 3.0, chloride 91, bicarbonate 39, anion gap 9, BUN 29, creatinine 0.9, glucose 133, calcium 8.2, phosphorus 3.1, magnesium 1.5, total bilirubin 2.2, AST 48, ALT 30, alkaline phosphatase 70, LDH 356, CK 191, total protein 5.0, albumin 2.9. Arterial blood gas this morning on PRVC with a rate of 10 and a tidal volume of 360 and a FiO2 of 0.4 was 7.46/56/81 with a measured saturation of 96%. I reviewed his chest x-ray as well as the report. That x-ray remains difficult to interpret because of the significant scoliosis. However, the previously seen opacity in the right lower lobe is markedly improved. He remains with enlarged cardiac silhouette and increased interstitial markings. IMPRESSION: 1. Acute and chronic hypoxemic and hypercapnic respiratory failure secondary to congestive heart failure. 2. Congestive heart failure. 3. Cardiogenic shock. 4. Restrictive chest disease. 5. Mildly elevated bilirubin, likely secondary to passive congestion of the liver. 6. Electrolyte abnormalities, being replaced. 7. Deep venous thrombosis (DVT) and stress ulcer prophylaxis in place. 8. Nutrition: Tolerating full tube feeds. RECOMMENDATIONS: 1. Will go on to a weaning trial. 2. Dr. Tilley had previously discussed his cardiac prognosis with his and I also discussed what to do should he meet our weaning criteria, but the extubation was not successful. She expressed her wish that he not be intubated. 3. Will proceed with a weaning trial. 4. Electrolytes are being replaced. ADDENDUM: Mr. Flores initially had a weaning trial of 5/5. He remains with a relatively rapid shallow breathing index but does not appear uncomfortable. In discussing this with his , this is how he appears chronically. His arterial blood gas on these settings was 7.4/66/65 with a measured saturation of 91.6% and a base excess 10.5. Because his difficulties were congestive heart failure (CHF), he went on to a T-piece trial during which time he appeared comfortable. He did not have an increase in his SpO2 requirements. He was suctioned once during the trial and did not have any frothy return. It was felt reasonable to extubate him. However, on recognizing his underlying difficulties and that we are not going to reintubate if he failed, I felt it was best to extubate him to CPAP therapy with a plan to wean him off of that modality. Incidentally, based on his body habitus, I would not be surprised if he did not have underlying sleep apnea. ADDENDUM #2: He was successfully extubated and is now on CPAP that was changed to bilevel 14/10 for comfort sake. He is tolerating the device well and maintaining good oxygen saturations with a 0.4 bleed in. Over the course of the next several hours, depending on how he does, we will begin to allow him to have clear liquids and increase his diet. He will be placed on a fluid restriction given his underlying heart failure. CRITICAL CARE TIME: 70 minutes not including procedure time. NUVIA
[2016-08-20] MEDS: LIDOCAINE 2% JELLY 30 ML TOP PRN (13:44)
[2016-08-20] MEDS: DOPamine HCL 800 MG in APPROPRIATE DILUENT 1 EA IV SCH (13:48)
[2016-08-20] MEDS: FONDAPARINUX SODIUM 2.5 MG/0.5 ML SC SCH (13:48)
[2016-08-20] MEDS ORDERED: FUROSEMIDE 20 MG/2 ML VIAL (J1940) IV ONE (16:30)
[2016-08-20] MEDS: PRAVASTATIN 10 MG TAB PO SCH (20:10)
--- NOTE | 2016-08-20 21:09 | IPN ---
DATE: 08/20/2016 Mr. Manuel Flores was seen this evening. He was sitting up in bed with mild shortness of breath at rest and his as well as a few members of his family and his daughter were in the room. He denies any chest pain, dizziness. There is no report of bleeding. He was initially admitted on 08/17/2016, and at that time he was in respiratory failure secondary to acute decompensated congestive heart failure. He was intubated and extubated on 08/19/2016, his respiratory status is being managed by Dr. Fernandez and Dr. Tilley from cardiology was covering over the weekend. He remains on IV dopamine and has not been receiving the furosemide regularly because blood pressure has been low. There is no active bleeding reported. He was started today on fondaparinux and the heparin was discontinued. His platelets have been low and today he was at 94,000, and on admission it was 110,000. There is no report of hematuria. He does complain of some soreness in his throat from the intubation/endotracheal tube. He also has some tenderness due to the indwelling Curtis catheter. PHYSICAL EXAMINATION: Patient is alert and awake, with mild shortness of breath at rest. His blood pressure when I was at bedside was 103/60 with a pulse of 88, respirations 20, and his maximum temperature is 99.4 degrees Fahrenheit, with an oxygen saturation of 91-96% on 4 liters nasal cannula. For 08/19/2016, he has a negative fluid balance of about 1 liter. So far for 08/20/2016, his fluid balance is -700 mL. His weight today is 66.8 kg and yesterday it was 64.8 kg. Examination of the head, ears, eyes, nose, and throat atraumatic. Neck is supple with extended jugular. The lungs reveal a few crackles at the bases, more on the right than the left but no wheezing. The heart examination revealed regular heart sounds without gallops. The point of maximum impulse (PMI) is displaced inferiorly and laterally. There is no rub. Extremities revealed trace to +1 bilateral ankle edema. Neurological examination grossly was limited but no focal deficit. LABORATORY DATA: CBC done today revealed a WBC of 6.6, hemoglobin 17.0, hematocrit 53.3, and platelets 94,000. BMP revealed a sodium of 138, potassium 4.2, chloride 91, CO2 41, BUN 18, creatinine 0.57, GFR more than 60, calcium 8.2, fasting glucose 109. Serum magnesium is 2.4. Liver enzymes reveal a total bilirubin of 1.8, AST 43, ALT 30, alkaline phosphatase 73, LDH 371, and total protein 5.4, albumin 3.2. Serum cholesterol is 157. Serum troponin on admission was 0.76 and peaked to 1.68. Serum BNP on admission was 1260 and on 08/18/2016 it is 1140. Chest xray was reviewed, done today 08/20/2016, and revealed cardiomegaly and increased pulmonary vascular markings. IMPRESSION: 1. Status post respiratory failure secondary to acute decompensated congestive heart failure due to severe left ventricular systolic dysfunction. 2. Status post cardiogenic shock. 3. History of coronary artery disease, mild. 4. Abnormal EKG. 5. Single lead implantable cardioverter defibrillator in situ for severe left ventricular systolic dysfunction. 6. Thrombocytopenia. 7. Abnormal serum troponin. 8. Abnormal liver function tests (LFTs). 9. History of hypotension. The case was discussed earlier today with Dr. Fernandez and I will discuss later today with Dr. Tilley. After seeing the patient, I had a long discussion with Mrs. Flores as well as her daughter and granddaughter. They understand that patient has severe cardiomyopathy and he has not been able to receive medications, full therapy, even prior to his admission because of history of low blood pressure. Since his last surgery, I believe a couple of years ago, he only has been on a small dose of furosemide and very small dose of carvedilol. I have tried Crestor in the week prior to his admission and he probably will not be able to tolerate it because of low blood pressure. In the past, he was on ramipril and it was discontinued because of low blood pressure. I have reviewed his current medications and I will try to taper off the dopamine and I will decrease the furosemide from 40 mg every 8 hours to 20 mg every 8 hours and will keep in negative fluid balance. His prognosis is very guarded but I think we might be able to discharge him home on small dose of therapy for his underlying cardiomyopathy and heart failure. His major problem complicating the treatment is underlying history of polio and its sequelae, including chest deformity, and that limits his lung physiology and probably causing some restrictive lung disease. Will monitor his BUN and creatinine closely as well as his electrolytes. It seems that he has been in negative balance. His liver enzymes also seem to be improving. I have noticed that his platelets are low and for this reason, the heparin was discontinued and he was started on fondaparinux. Once again, his prognosis is guarded in view of his underlying heart condition and comorbid condition and I will monitor him along with you. He currently has a DO NOT RESUSCITATE order. It was a pleasure to participate in the care of . Manuel Flores for his underlying cardiac condition. I will continue to monitor him along with you. Please do not hesitate to call if any questions. NUVIA
[2016-08-21] VITALS (25 sets, daily range): BP systolic 84–121; BP diastolic 46–70
[2016-08-21] MEDS: FUROSEMIDE 20 MG/2 ML VIAL (J1940) IV SCH ×3 (00:04→15:40)
[2016-08-21] MEDS: DOPamine HCL 800 MG in APPROPRIATE DILUENT 1 EA IV SCH ×2 (00:05→05:51)
[2016-08-21] MEDS: LIDOCAINE 2% JELLY 30 ML TOP PRN ×7 (00:08→21:12)
[2016-08-21] MEDS: ACETAMINOPHEN 650 MG SUPP PR PRN (04:32)
[2016-08-21 05:10] LABS: MEAN CORPUSCULAR HGB CONC 31.6 g/dl (32.0-36.5); MEAN CORPUSCULAR VOLUME 104.5 fl (80.0-96.0); RED CELL DISTRIBUTION WIDTH 12.9 % (11.5-14.5); WHITE BLOOD COUNT 5.6 K/mm3 (4.0-10.0)
[2016-08-21 05:30] LABS: ALBUMIN 3.2 GM/DL (3.2-5.2); ALBUMIN/GLOBULIN RATIO 1.39 (1.00-1.93); ALKALINE PHOSPHATASE 78 U/L (45-117); ALT/SGPT 40 U/L (12-78); ANION GAP 6 MEQ/L (8-16); AST/SGOT 52 U/L (15-37); BILIRUBIN,TOTAL 1.6 MG/DL (0.2-1.0); BLOOD UREA NITROGEN 14 MG/DL (7-18); CALCIUM LEVEL 7.8 MG/DL (8.8-10.2); CARBON DIOXIDE LEVEL 43 MEQ/L (21-32); CHLORIDE LEVEL 95 MEQ/L (98-107); CHOLESTEROL LEVEL 170 MG/DL (< 200); CREATININE FOR GFR 0.48 MG/DL (0.70-1.30); GLOMERULAR FILTRATION RATE > 60.0 (>42); GLUCOSE, FASTING 104 MG/DL (83-110); MAGNESIUM LEVEL 1.9 MG/DL (1.8-2.4); PHOSPHORUS LEVEL 2.3 MG/DL (2.5-4.9); POTASSIUM SERUM 3.8 MEQ/L (3.5-5.1); SODIUM LEVEL 144 MEQ/L (136-145); TOTAL PROTEIN 5.5 GM/DL (6.4-8.2); TRIGLYCERIDES LEVEL 109 MG/DL (<150)
[2016-08-21] MEDS: SODIUM CHLORIDE 0.9% INJ 10 ML SYR IV SCH ×3 (05:49→21:14)
[2016-08-21] MEDS: SLF 3 ML SYR IV SCH ×3 (05:50→21:13)
--- NOTE | 2016-08-21 07:28 | REP ---
Portable chest, single AP view the patient semi upright: Comparisons 08/20/2016. There is severe scoliosis convex right, obscuring the entire right hemithorax as previously. The patient is reportedly intubated, however no ET tube or nasogastric tube are identified, possibly obscured by the severe scoliosis. Pacemaker is again noted. The visualized upper lobe of the left lung demonstrates interstitial coarsening, unchanged. Signed by Abhi Porter MD 08/21/2016 07:19 A
[2016-08-21] MEDS: MULTIVITAMINS/MINERALS THERAP 1 TAB PO SCH (08:48)
[2016-08-21] MEDS: CETIRIZINE (ZyrTEC) 10 MG TAB PO SCH (08:48)
[2016-08-21] MEDS: SENOKOT S TAB PO SCH ×3 (08:48→21:00)
[2016-08-21] MEDS: FONDAPARINUX SODIUM 2.5 MG/0.5 ML SC SCH (08:49)
[2016-08-21] MEDS: GABAPENTIN 300 MG CAP PO SCH ×2 (08:49→21:10)
[2016-08-21] MEDS: PANTOPRAZOLE 40MG INJ (PROTONIX) (C9113) IV SCH (08:49)
[2016-08-21] MEDS ORDERED: ACETAMINOPHEN TAB 650MG DOSE (2X325MG) PO PRN (09:45)
[2016-08-21] MEDS ORDERED: POTASSIUM PHOSPHATE INJ 15 MMOL in D5W 250 ML IV ONE (10:00)
[2016-08-21] MEDS: TRIAMCINOLONE ACET 0.1% CREAM 15 GM TOP SCH (21:11)
[2016-08-21] MEDS: PRAVASTATIN 10 MG TAB PO SCH (21:11)
--- NOTE | 2016-08-21 22:00 | IPN ---
DATE: 08/21/2016 Mr. Manuel Flores was seen earlier this morning. He was sitting up in bed in no acute distress at rest but with mild shortness of breath. His was at the bedside. He appears to be stronger than yesterday. He denies any chest pain, palpitations, or dizziness. He has a cough but no hemoptysis. There is no report of bleeding. There is no focal manifestation. There is no nausea, vomiting, diarrhea, melena, or hematemesis. His major complaint is the Curtis catheter. PHYSICAL EXAMINATION: Patient is alert and oriented but with mild shortness of breath. His vital signs when I saw him earlier today revealed a blood pressure of 92/53 with a pulse of 84, respirations 20-22, and his temperature was 98.4 degrees Fahrenheit with an oxygen saturation of 93% on three liters nasal cannula. He has a negative fluid balance of 734 mL for 08/20/2016. Examination of the head, ears, eyes, nose, and throat: Atraumatic. Neck is supple with extended jugular. The lungs revealed crackles at the bases. This may represent some combination of wet and dry and crackles. The heart examination revealed normal S1, and S2 without gallops. The point of maximum impulse (PMI) is displaced inferiorly. There is no rub. I could not appreciate any murmurs. Abdomen is soft and nontender. Extremities revealed only trace ankle edema. Neurological examination grossly is negative for focal deficit in the upper extremities. LABORATORY DATA: CBC done today revealed a WBC of 5.6, hemoglobin 17.5, hematocrit 55.3, and platelets 83,000. BMP revealed a sodium of 144, potassium 3.8, chloride 95, CO2 43, BUN 14, creatinine 0.48, GFR more than 60, calcium 7.8, fasting glucose 104. Liver enzymes revealed a total bilirubin of 1.6, AST 52, ALT 40, alkaline phosphatase is 78, total protein 5.5, albumin 3.2. Serum magnesium is 1.9. Serum LDH is 394. Telemetry revealed normal sinus rhythm. IMPRESSION: 1. Status post decompensated congestive heart failure, acute on chronic secondary to left ventricular systolic dysfunction and severe nonischemic cardiomyopathy. 2. Status post respiratory failure secondary to above. 3. Status post cardiogenic shock. 4. History of coronary artery disease, mild. 5. Status post electrolyte abnormalities. 6. Thrombocytopenia. 7. Abnormal serum troponin. 8. Abnormal liver function tests (LFTs). 9. Automatic implantable cardioverter defibrillator (AICD) implantation for severe cardiomyopathy, systolic dysfunction, single lead. 10. History of polio and musculoskeletal complications including chest wall deformity, severe scoliosis. Mr. Manuel Flores seems to be stable from a cardiac point of view but has poor prognosis in view of his comorbid condition and particularly in view of his underlying restrictive lung disease. His dopamine was decreased last night to 6 mcg and it seems that he is tolerating it well. We will continue the same for now. He also will continue with the small dose of IV furosemide and we will monitor his blood urea nitrogen (BUN), creatinine, and serum potassium closely. He will continue to use the bilevel positive airway pressure (BiPAP) at night until he feels stronger. We will continue with the Curtis catheter for now and this was discussed with him and he has agreed. I will continue to monitor him along with you. NUVIA
[2016-08-22] VITALS (47 sets, daily range): BP systolic 76–122; BP diastolic 41–67; O2SAT 96–98
[2016-08-22] MEDS: FUROSEMIDE 20 MG/2 ML VIAL (J1940) IV SCH ×3 (00:40→15:48)
[2016-08-22] MEDS: LIDOCAINE 2% JELLY 30 ML TOP PRN ×3 (01:31→07:58)
[2016-08-22] MEDS: SLF 3 ML SYR IV SCH ×3 (06:00→21:11)
[2016-08-22] MEDS: SODIUM CHLORIDE 0.9% INJ 10 ML SYR IV SCH ×3 (06:25→21:11)
[2016-08-22 06:55] LABS: MEAN CORPUSCULAR HEMOGLOBIN 33.3 pg (27.0-33.0); MEAN CORPUSCULAR HGB CONC 31.8 g/dl (32.0-36.5); MEAN CORPUSCULAR VOLUME 104.7 fl (80.0-96.0); WHITE BLOOD COUNT 7.3 K/mm3 (4.0-10.0)
[2016-08-22 07:06] LABS: ALBUMIN 3.2 GM/DL (3.2-5.2); ALBUMIN/GLOBULIN RATIO 1.39 (1.00-1.93); ALKALINE PHOSPHATASE 79 U/L (45-117); ALT/SGPT 50 U/L (12-78); AST/SGOT 59 U/L (15-37); BILIRUBIN,TOTAL 1.3 MG/DL (0.2-1.0); BLOOD UREA NITROGEN 15 MG/DL (7-18); CALCIUM LEVEL 8.2 MG/DL (8.8-10.2); CHLORIDE LEVEL 93 MEQ/L (98-107); CHOLESTEROL LEVEL 166 MG/DL (< 200); CREATININE FOR GFR 0.44 MG/DL (0.70-1.30); GLOMERULAR FILTRATION RATE > 60.0 (>42); GLUCOSE, FASTING 100 MG/DL (83-110); MAGNESIUM LEVEL 1.8 MG/DL (1.8-2.4); PHOSPHORUS LEVEL 2.7 MG/DL (2.5-4.9); POTASSIUM SERUM 3.6 MEQ/L (3.5-5.1); SODIUM LEVEL 141 MEQ/L (136-145); TOTAL PROTEIN 5.5 GM/DL (6.4-8.2); TRIGLYCERIDES LEVEL 96 MG/DL (<150)
[2016-08-22 07:17] LABS: ANION GAP 4 MEQ/L (8-16); CARBON DIOXIDE LEVEL 44 MEQ/L (21-32)
[2016-08-22] MEDS: FONDAPARINUX SODIUM 2.5 MG/0.5 ML SC SCH (08:51)
[2016-08-22] MEDS: PANTOPRAZOLE 40MG INJ (PROTONIX) (C9113) IV SCH (08:52)
[2016-08-22] MEDS: TRIAMCINOLONE ACET 0.1% CREAM 15 GM TOP SCH ×3 (08:52→21:10)
[2016-08-22] MEDS: MULTIVITAMINS/MINERALS THERAP 1 TAB PO SCH (08:53)
[2016-08-22] MEDS: SENOKOT S TAB PO SCH ×3 (08:53→21:09)
[2016-08-22] MEDS: GABAPENTIN 300 MG CAP PO SCH ×2 (08:53→21:09)
[2016-08-22] MEDS: CETIRIZINE (ZyrTEC) 10 MG TAB PO SCH (08:53)
[2016-08-22] MEDS: NYSTATIN 100,000 UNITS/GM TOPICAL PWD 15 GM TOP SCH ×2 (11:05→21:09)
--- NOTE | 2016-08-22 12:32 | IPNPDOC ---
Subjective Date Seen The patient was seen on 08/22/16. Subjective Chief Complaint/HPI The patient is a 71-year-old male admitted with a reason for visit of Hyperkalemia;Hypoxia. Events since last encounter feeling better, has rash and itchiness on the back of his neck , having trouble with the bipap and could tolerate it only for about 4 hours last night. No chest pain or shortness of breath , abdominal pain , nausea or vomiting or diarrhea. no fever or chills, Objective Physical Examination General Exam: Positive: Alert, Cooperative, No Acute Distress Eye Exam: Positive: Conjunctiva & lids normal, EOMI, PERRLA, Negative: Sclera icteric ENT Exam: Positive: Atraumatic, Mucous membr. moist/pink, Pharynx Normal Neck Exam: Positive: Other (red rash behind the neck with itching.), Supple Chest Exam: Positive: Normal air movement, Other (chest wall deformity with severe scoliosis), Rales (at the bases) Heart Exam: Positive: Normal S1, Normal S2, Rate Normal, Negative: Bradycardic, Gallops, Irregular Rhythm, Murmurs, Other, Regular Rhythm, Rubs, Tachycardic Telemetry: Positive: No significant arrhythmia Abdomen Exam: Positive: Normal bowel sounds, Soft Extremity Exam: Positive: Edema (trace around the ankles) Skin Exam: Positive: Pruritus, Rash (red maculo papular rash on the back . red velvety area with itching on the back of the neck.) Neuro Exam: Positive: Other (childhood polio related bilateral upper extremity weakness, also bilateral lower extremity weakness. ) Assessment /Plan Problems (1) Acute on chronic systolic congestive heart failure Status: Acute Problem Text: severe nonischemic cardiomyopathy with EF of 20%. currently on dopamine gtt which is being tapered as tolerated. on lasix iv with good diuresis. Has lost about 10 kgs in the hospital. (2) Acute on chronic respiratory failure with hypoxia and hypercapnia Status: Resolved Problem Text: due to decompensated CHF on the back ground of restrictive chest wall disease and possibly TAPAN. was intubated initially then successfully extubated on 08/19/16 Now on nocturnal BIPAP. will change to table top bipap once ready to be transferred to the floors. patient will need sleep studies after discharge. 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 (5) History of poliomyelitis Status: Chronic Problem Text: has quadriparesis but able to ambulate with abnormal gait and compensations. (6) AICD (automatic cardioverter/defibrillator) present Status: Chronic (7) Nonischemic cardiomyopathy Status: Chronic Problem Text: EF of 20%. (8) Rash Status: Acute Problem Text: / fungal rash vs drug rash will give nystatin powder and triamcinolone ointment. (9) CAD (coronary artery disease) Status: Chronic Response to Treatment: Stable (10) Thrombocytopenia Status: Chronic Problem Text: on fondaparinaux. Plan/VTE VTE Prophylaxis Ordered?: Yes Plan/Urinary Catheter Reason for insertion/continuin: Critical Pt monitoring VS, I&O, 24H, Fishbone Vital Signs/I&O Vital Signs Date Time Temp Pulse Resp B/P Pulse Ox O2 Delivery O2 Flow Rate FiO2 08/22/16 10:45 88 22 83/49 Nasal Cannula 3.0 08/22/16 10:00 95 08/22/16 08:00 99.0 08/22/16 05:00 45 I&O- Last 24 Hours up to 6 AM 08/22/16 06:00 Intake Total 1111 ml Output Total 1670 ml Balance -559 ml Laboratory Data 24H LABS Laboratory Tests 2 08/22/16 06:30: Blood Urea Nitrogen 15, Creatinine 0.44L, Sodium Level 141, Potassium Level 3.6 , Chloride Level 93L, Carbon Dioxide Level 44H, Calcium Level 8.2L, Phosphorus Level 2.7, Aspartate Amino Transf (AST/SGOT) 59H, Alanine Aminotransferase (ALT/ SGPT) 50, Lactate Dehydrogenase 368H, Total Creatine Kinase 76, Alkaline Phosphatase 79, Total Bilirubin 1.3H, Triglycerides Level 96, Cholesterol Level 166, Total Protein 5.5L, Albumin 3.2, Albumin/Globulin Ratio 1.39, Anion Gap 4L , Glomerular Filtration Rate > 60.0, Magnesium Level 1.8 CBC/BMP Laboratory Tests 08/22/16 06:30 Calcium Level 8.2 L, Phosphorus Level 2.7, Aspartate Amino Transf (AST/SGOT) 59 H, Alanine Aminotransferase (ALT/SGPT) 50, Lactate Dehydrogenase 368 H, Total Creatine Kinase 76, Alkaline Phosphatase 79, Total Bilirubin 1.3 H, Triglycerides Level 96, Cholesterol Level 166, Total Protein 5.5 L, Albumin 3.2 , Red Blood Count 4.85, Mean Corpuscular Volume 104.7 H, Mean Corpuscular Hemoglobin 33.3 H, Mean Corpuscular Hemoglobin Concent 31.8 L, Red Cell Distribution Width 13.0 Microbiology Microbiology 08/17/16 Blood Culture - Preliminary, Resulted No Growth after 72 hours. All specime... 08/17/16 Blood Culture - Preliminary, Resulted No Growth after 72 hours. All specime... 08/17/16 Gram Stain - Final, Complete 08/17/16 Sputum Culture - Final, Complete Streptococcus Constellatus 08/16/16 Respiratory Virus Panel (PCR) ([facility]) - Final, Complete LUIS MORTON MD Aug 22, 2016 12:32
[2016-08-22] MEDS: DOPamine HCL 800 MG in APPROPRIATE DILUENT 1 EA IV SCH (19:40)
[2016-08-22] MEDS: PRAVASTATIN 10 MG TAB PO SCH (21:08)
--- NOTE | 2016-08-22 21:13 | IPN ---
DATE: 08/22/2016 Mr. Manuel Flores was seen early this morning. He was sitting in the chair in no acute distress at rest. He was at bedside. There was no report of chest pain and his shortness of breath seems to have improved. There is no dizziness. He has no palpitations. There is no report of bleeding. There is no nausea or vomiting. His major complaint is soreness around the Curtis Catheter. PHYSICAL EXAMINATION: Patient is alert and oriented, in no acute distress at rest and his vital signs this morning when I saw him revealed a blood pressure of 100/55, with a pulse of 93, respirations 22-24, and his oxygen saturation was 96% on 3 liters nasal cannula. His temperature was 99 degrees Fahrenheit. Examination of the head, ears, eyes, nose, and throat: Atraumatic. Neck is supple. The lungs sounds did not reveal any crackles or wheezing. The heart examination revealed normal S1 and S2 without gallops. The point of maximum impulse (PMI) is displaced inferiorly. There is no rub. Abdomen is unremarkable. Extremities revealed +1 bilateral ankle edema. Neurological examination is negative for focal deficit in the upper extremities. LABORATORIES: CBC done today revealed a WBC 7.3, hemoglobin 16.2, hematocrit 50.8 and platelets 82,000. BMP revealed sodium 141, potassium 3.6, chloride 93, CO2 44, BUN 15, creatinine 0.44, GFR more than 60, fasting glucose 100, calcium 8.2. Serum magnesium 1.8. Liver enzymes reveal a total bilirubin 1.3, AST 59, ALT 50, alkaline phosphatase 79, total protein 5.5, albumin 3.2. IMPRESSION: 1. Mr. Manuel Flores, when I saw him this morning, seems to be stable and has improved, but today we were not able to taper down the dopamine and he continues to be on 5 and 6 mcg and we will continue the same. We have managed, however, to continue to give the furosemide. 2. On 08/21/2016, he had a negative fluid balance of 660. His weight today was 58 kg and yesterday it was 62.3 kg. 3. His BUN and creatinine and his electrolytes continue to be stable. 4. We will continue the same management. Case was discussed earlier today with patient and his , as well as his hospitalist. NUVIA
[2016-08-23] VITALS (59 sets, daily range): BP systolic 74–112; BP diastolic 42–68; O2SAT 96
[2016-08-23] MEDS: FUROSEMIDE 20 MG/2 ML VIAL (J1940) IV SCH ×3 (00:10→16:35)
[2016-08-23] MEDS: SLF 3 ML SYR IV SCH ×3 (05:35→19:52)
[2016-08-23] MEDS: SODIUM CHLORIDE 0.9% INJ 10 ML SYR IV SCH ×3 (05:35→18:00)
[2016-08-23 05:40] LABS: MEAN CORPUSCULAR HEMOGLOBIN 32.4 pg (27.0-33.0); MEAN CORPUSCULAR HGB CONC 30.6 g/dl (32.0-36.5); MEAN CORPUSCULAR VOLUME 105.8 fl (80.0-96.0); RED CELL DISTRIBUTION WIDTH 12.7 % (11.5-14.5); WHITE BLOOD COUNT 5.9 K/mm3 (4.0-10.0)
[2016-08-23 06:01] LABS: ALBUMIN 3.2 GM/DL (3.2-5.2); ALKALINE PHOSPHATASE 81 U/L (45-117); ALT/SGPT 49 U/L (12-78); ANION GAP 4 MEQ/L (8-16); AST/SGOT 48 U/L (15-37); BLOOD UREA NITROGEN 15 MG/DL (7-18); CALCIUM LEVEL 7.7 MG/DL (8.8-10.2); CARBON DIOXIDE LEVEL 44 MEQ/L (21-32); CHLORIDE LEVEL 94 MEQ/L (98-107); CHOLESTEROL LEVEL 169 MG/DL (< 200); CREATININE FOR GFR 0.52 MG/DL (0.70-1.30); GLOMERULAR FILTRATION RATE > 60.0 (>42); GLUCOSE, FASTING 111 MG/DL (83-110); MAGNESIUM LEVEL 1.6 MG/DL (1.8-2.4); PHOSPHORUS LEVEL 2.3 MG/DL (2.5-4.9); POTASSIUM SERUM 3.5 MEQ/L (3.5-5.1); SODIUM LEVEL 142 MEQ/L (136-145); TOTAL PROTEIN 6.1 GM/DL (6.4-8.2); TRIGLYCERIDES LEVEL 92 MG/DL (<150)
[2016-08-23] MEDS: PANTOPRAZOLE 40MG INJ (PROTONIX) (C9113) IV SCH (08:46)
[2016-08-23] MEDS: GABAPENTIN 300 MG CAP PO SCH ×2 (08:47→19:43)
[2016-08-23] MEDS: CETIRIZINE (ZyrTEC) 10 MG TAB PO SCH (08:47)
[2016-08-23] MEDS: MULTIVITAMINS/MINERALS THERAP 1 TAB PO SCH (08:47)
[2016-08-23] MEDS: SENOKOT S TAB PO SCH ×2 (08:48→19:44)
[2016-08-23] MEDS: MAGNESIUM OXIDE 400 MG TAB (MAG-OX) PO SCH ×3 (08:48→19:43)
[2016-08-23] MEDS: FONDAPARINUX SODIUM 2.5 MG/0.5 ML SC SCH (08:49)
[2016-08-23] MEDS: NYSTATIN 100,000 UNITS/GM TOPICAL PWD 15 GM TOP SCH ×2 (08:50→19:42)
[2016-08-23] MEDS: TRIAMCINOLONE ACET 0.1% CREAM 15 GM TOP SCH ×2 (08:51→19:42)
--- NOTE | 2016-08-23 12:39 | IPNPDOC ---
Subjective Date Seen The patient was seen on 08/23/16. Subjective Chief Complaint/HPI The patient is a 71-year-old male admitted with a reason for visit of Hyperkalemia;Hypoxia. Events since last encounter pateint is not able to use the BIPAP at all. causing him a lot of pain so BIPAP is being discontinued. still remains of dopamine will again try to wean today. As long as SBP is 85 or above will continue to wean it. rash seems to be a little better, after discontinuation of gerardo yesterday pateint says not voiding enough and there is dribbling and some pain during urination. Bladder scan was done showed a residual of 275 ml. pateint refused straight cath wants to try by himself. No fever or chills, no chest pain or sob. will remove femoral line and place picc line. Objective Physical Examination General Exam: Positive: Alert, Cooperative, No Acute Distress Eye Exam: Positive: Conjunctiva & lids normal, EOMI, PERRLA, Negative: Sclera icteric ENT Exam: Positive: Atraumatic, Mucous membr. moist/pink, Pharynx Normal Neck Exam: Positive: Other (red rash behind the neck with itching.), Supple Chest Exam: Positive: Normal air movement, Other (chest wall deformity with severe scoliosis), Rales (at the bases) Heart Exam: Positive: Normal S1, Normal S2, Rate Normal, Negative: Bradycardic, Gallops, Irregular Rhythm, Murmurs, Other, Regular Rhythm, Rubs, Tachycardic Telemetry: Positive: No significant arrhythmia Abdomen Exam: Positive: Normal bowel sounds, Soft Extremity Exam: Positive: Edema (trace around the ankles) Skin Exam: Positive: Pruritus, Rash (red maculo papular rash on the back . red velvety area with itching on the back of the neck.) Neuro Exam: Positive: Other (childhood polio related bilateral upper extremity weakness, also bilateral lower extremity weakness. ) Assessment /Plan Problems (1) Acute on chronic systolic congestive heart failure Status: Acute Problem Text: severe nonischemic cardiomyopathy with EF of 20%. currently on dopamine gtt which is being tapered as tolerated. Continue weaning as long as SBP > 85. on lasix iv Has lost about 10 kgs in the hospital. (2) Acute on chronic respiratory failure with hypoxia and hypercapnia Status: Resolved Problem Text: due to decompensated CHF on the back ground of restrictive chest wall disease and possibly TAPAN. was intubated initially then successfully extubated on 08/19/16 Now on nocturnal BIPAP. will change to table top bipap once ready to be transferred to the floors. patient will need sleep studies after discharge. 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 (5) History of poliomyelitis Status: Chronic Problem Text: has quadriparesis but able to ambulate with abnormal gait and compensations. (6) AICD (automatic cardioverter/defibrillator) present Status: Chronic (7) Nonischemic cardiomyopathy Status: Chronic Problem Text: EF of 20%. (8) Rash Status: Acute Problem Text: / fungal rash vs drug rash will give nystatin powder and triamcinolone ointment. (9) CAD (coronary artery disease) Status: Chronic Response to Treatment: Stable (10) Thrombocytopenia Status: Chronic Problem Text: on fondaparinaux. Plan/VTE VTE Prophylaxis Ordered?: Yes Plan/Urinary Catheter Reason for insertion/continuin: Critical Pt monitoring VS, I&O, 24H, [facility] Vital Signs/I&O Vital Signs Date Time Temp Pulse Resp B/P Pulse Ox O2 Delivery O2 Flow Rate FiO2 08/23/16 09:52 94 20 90/54 97 Nasal Cannula 2.0 08/23/16 08:00 98.9 08/22/16 05:00 45 I&O- Last 24 Hours up to 6 AM 08/23/16 06:00 Intake Total 1107.4 ml Output Total 1073 ml Balance 34.4 ml Laboratory Data 24H LABS Laboratory Tests 2 08/23/16 05:14: Blood Urea Nitrogen 15, Creatinine 0.52L, Sodium Level 142, Potassium Level 3.5 , Chloride Level 94L, Carbon Dioxide Level 44H, Calcium Level 7.7L, Phosphorus Level 2.3L, Aspartate Amino Transf (AST/SGOT) 48H, Alanine Aminotransferase (ALT /SGPT) 49, Lactate Dehydrogenase 376H, Total Creatine Kinase 73, Alkaline Phosphatase 81, Total Bilirubin 1.0, Triglycerides Level 92, Cholesterol Level 169, Total Protein 6.1L, Albumin 3.2, Albumin/Globulin Ratio 1.10, Anion Gap 4L , Glomerular Filtration Rate > 60.0, Magnesium Level 1.6L CBC/BMP Laboratory Tests 08/23/16 05:14 Calcium Level 7.7 L, Phosphorus Level 2.3 L, Aspartate Amino Transf (AST/SGOT) 48 H, Alanine Aminotransferase (ALT/SGPT) 49, Lactate Dehydrogenase 376 H, Total Creatine Kinase 73, Alkaline Phosphatase 81, Total Bilirubin 1.0, Triglycerides Level 92, Cholesterol Level 169, Total Protein 6.1 L, Albumin 3.2 , Red Blood Count 4.96, Mean Corpuscular Volume 105.8 H, Mean Corpuscular Hemoglobin 32.4, Mean Corpuscular Hemoglobin Concent 30.6 L, Red Cell Distribution Width 12.7 Microbiology Microbiology 08/17/16 Blood Culture - Final, Complete NO GROWTH AFTER 5 DAYS 08/17/16 Blood Culture - Final, Complete NO GROWTH AFTER 5 DAYS 08/17/16 Gram Stain - Final, Complete 08/17/16 Sputum Culture - Final, Complete Streptococcus Constellatus 08/16/16 Respiratory Virus Panel (PCR) ([facility]) - Final, Complete LUIS MORTON MD Aug 23, 2016 12:39
[2016-08-23] MEDS ORDERED: SODIUM CHLORIDE 0.9% INJ 10 ML SYR IV PRN (14:15)
--- NOTE | 2016-08-23 16:54 | REP ---
Procedure: PICC line insertion with Paresh-Hetal The procedure was performed under the direct supervision of Dr. Ramirez. The risks and benefits of the procedure were explained to the patient and informed consent was obtained. The right basilic vein was localized using ultrasound guidance. The skin was prepped and draped in a sterile fashion. 2% lidocaine was used as a local anesthetic. Using ultrasound guidance the basilic vein was cannulated and a 0.018 guidewire was inserted and advanced to the SVC using fluoroscopic guidance. The needle was removed and a 5.5 Luxembourger dilator and peel-away sheath was inserted over the guide wire. A 5.5 Luxembourger dual lumen catheter was cut to length of 37 cm. The dilator was removed and the catheter was inserted over the guide wire with the tip ending in the SVC. The peel-away sheath was removed and the catheter was flushed with heparinized saline as per Hospital protocol. The catheter was affixed to the skin and a sterile dressing was applied. The the patient tolerated the procedure well and there were no immediate complications. 0.2 minutes of fluoro time was utilized for this procedure. Reviewed by SKIP Chung 08/23/2016 03:53 PSigned by Don Ramirez MD 08/23/2016 04:45 P
[2016-08-23] MEDS: PRAVASTATIN 10 MG TAB PO SCH (19:43)
--- NOTE | 2016-08-23 20:54 | IPN ---
DATE: 08/23/2016 Mr. Manuel Flores was seen this evening. He was supine in bed. In no acute distress at rest. His was at bedside. He happens to be mildly short of breath, but according to the <<0:43>> and also according to the , he is overall condition continues to be slowly getting better. There is no report of fever or chills. He is now on less than 2 mg of Dopamine. He has been sitting out of bed, but has not been ambulating yet. He denies any chest pain, palpitations, or dizziness. His femoral catheter was removed earlier today and he now has a peripherally inserted central catheter (PICC) line. His Curtis catheter was removed yesterday. PHYSICAL EXAMINATION: Patient is alert and awake, in no acute distress at rest, and his vital signs when I was at bed side revealed a blood pressure of 89/56, with a pulse of 92, respirations 20, and his maximum temperature was 98 degree Fahrenheit. His oxygen saturation is about 92% on room air. He has a negative fluid balance of about 437.6 mL for 08/22/2016. His weight is up today up to 62.3 kg, probably artifactual. HEAD: Examination of the head is normocephalic, atraumatic. NECK: Is supple. No carotid bruits. LUNGS: Reveal only minimal crackles at the bases. HEART: The heart examination revealed normal S1 and S2 without gallops. The point of maximum impulse (PMI) is displaced inferiorly. There is no rub. ABDOMEN: Is soft and non-tender.. EXTREMITIES: Revealed +1 bilateral ankle edema. NEUROLOGICAL EXAMINATION: Is negative for focal deficit in the upper extremities. LABORATORIES: CBC done today revealed a WBC 5.9, hemoglobin 16.1, hematocrit 52.5 and platelets 94,000. BMP revealed sodium 142, potassium 3.5, chloride 94, CO2 44, BUN 15, creatinine 0.52, GFR more than 60, fasting glucose 111, calcium 7.7. Serum magnesium 1.6. Liver enzymes reveal a total bilirubin 1.0, AST 48, ALT 49, alkaline phosphatase 81. LDH 376. total protein 6.1, albumin 3.2. Heparin induced antibody is normal, 0.137. Telemetry revealed normal sinus rhythm. Blood cultures have been negative. IMPRESSION: Mr. Manuel Flores continued to be stable and he is slowly improving. We will continue current medications and hopefully tomorrow he will be off the Dopamine. His magnesium is being corrected. We need to monitor closely his electrolytes in view of the diuretic/furosemide. His platelets have improved and his electrolytes are improving. His rash also is improving. If he remains stable, he could try physical therapy starting tomorrow. This was discussed with the patient as well his , and tomorrow, I will discuss with his hospitalist. It has been a pleasure to participate in the care of Mr. Manuel Flores for his underlying cardiac condition. I will continue to monitor along with you while in the hospital. Case was discussed earlier today with his hospitalist. NUVIA
[2016-08-24] VITALS (51 sets, daily range): BP systolic 80–108; BP diastolic 49–61
[2016-08-24] MEDS: SODIUM CHLORIDE 0.9% INJ 10 ML SYR IV SCH ×5 (00:36→18:08)
[2016-08-24] MEDS: FUROSEMIDE 20 MG/2 ML VIAL (J1940) IV SCH ×3 (00:38→16:14)
[2016-08-24] MEDS: SLF 3 ML SYR IV SCH ×2 (05:30→14:00)
[2016-08-24 07:20] LABS: ALKALINE PHOSPHATASE 73 U/L (45-117); ALT/SGPT 46 U/L (12-78); ANION GAP 4 MEQ/L (8-16); AST/SGOT 46 U/L (15-37); BILIRUBIN,TOTAL 0.8 MG/DL (0.2-1.0); BLOOD UREA NITROGEN 15 MG/DL (7-18); CALCIUM LEVEL 7.5 MG/DL (8.8-10.2); CARBON DIOXIDE LEVEL 44 MEQ/L (21-32); CHLORIDE LEVEL 94 MEQ/L (98-107); CHOLESTEROL LEVEL 165 MG/DL (< 200); CREATININE FOR GFR 0.37 MG/DL (0.70-1.30); GLOMERULAR FILTRATION RATE > 60.0 (>42); GLUCOSE, FASTING 88 MG/DL (83-110); PHOSPHORUS LEVEL 2.5 MG/DL (2.5-4.9); POTASSIUM SERUM 3.4 MEQ/L (3.5-5.1); SODIUM LEVEL 142 MEQ/L (136-145); TOTAL PROTEIN 5.3 GM/DL (6.4-8.2); TRIGLYCERIDES LEVEL 84 MG/DL (<150)
[2016-08-24 08:21] LABS: ALBUMIN/GLOBULIN RATIO 1.36 (1.00-1.93); ALKALINE PHOSPHATASE 71 U/L (45-117); ALT/SGPT 44 U/L (12-78); ANION GAP 4 MEQ/L (8-16); AST/SGOT 44 U/L (15-37); BILIRUBIN,TOTAL 0.8 MG/DL (0.2-1.0); BLOOD UREA NITROGEN 15 MG/DL (7-18); CALCIUM LEVEL 7.4 MG/DL (8.8-10.2); CARBON DIOXIDE LEVEL 44 MEQ/L (21-32); CHLORIDE LEVEL 96 MEQ/L (98-107); CHOLESTEROL LEVEL 161 MG/DL (< 200); CREATININE FOR GFR 0.39 MG/DL (0.70-1.30); GLOMERULAR FILTRATION RATE > 60.0 (>42); GLUCOSE, FASTING 87 MG/DL (83-110); PHOSPHORUS LEVEL 2.5 MG/DL (2.5-4.9); POTASSIUM SERUM 3.4 MEQ/L (3.5-5.1); SODIUM LEVEL 144 MEQ/L (136-145); TOTAL PROTEIN 5.2 GM/DL (6.4-8.2); TRIGLYCERIDES LEVEL 83 MG/DL (<150)
[2016-08-24] MEDS: MAGNESIUM OXIDE 400 MG TAB (MAG-OX) PO SCH ×3 (08:57→20:14)
[2016-08-24] MEDS: GABAPENTIN 300 MG CAP PO SCH ×2 (08:57→20:13)
[2016-08-24] MEDS: CETIRIZINE (ZyrTEC) 10 MG TAB PO SCH (08:59)
[2016-08-24] MEDS: MULTIVITAMINS/MINERALS THERAP 1 TAB PO SCH (08:59)
[2016-08-24] MEDS: PANTOPRAZOLE 40MG INJ (PROTONIX) (C9113) IV SCH (09:00)
[2016-08-24] MEDS: FONDAPARINUX SODIUM 2.5 MG/0.5 ML SC SCH (09:00)
[2016-08-24] MEDS: SENOKOT S TAB PO SCH ×2 (09:00→20:37)
[2016-08-24] MEDS: TRIAMCINOLONE ACET 0.1% CREAM 15 GM TOP SCH ×2 (09:01→20:14)
[2016-08-24] MEDS: NYSTATIN 100,000 UNITS/GM TOPICAL PWD 15 GM TOP SCH ×2 (09:02→20:14)
[2016-08-24 09:40] LABS: MEAN CORPUSCULAR HEMOGLOBIN 34.8 pg (27.0-33.0); MEAN CORPUSCULAR HGB CONC 33.5 g/dl (32.0-36.5); MEAN CORPUSCULAR VOLUME 103.9 fl (80.0-96.0); WHITE BLOOD COUNT 4.2 K/mm3 (4.0-10.0)
[2016-08-24 09:41] LABS: BASO % 0.7 % (0.0-1.0); DIFF SLIDE NUMBER 116; EOS # 0.6 K/mm3 (0.0-0.50); EOS % 13.8 % (0.0-3.0); LARGE UNSTAINED CELL # 0.2 K/mm3 (0.0-0.4); LARGE UNSTAINED CELL % 4.3 % (0.0-4.0); LYMPH # 0.5 K/mm3 (1.5-4.5); LYMPH % 10.9 % (24.0-44.0); MONO # 0.5 K/mm3 (0.0-0.8); MONO % 10.9 % (0.0-5.0); NEUTROPHILS # 2.5 K/mm3 (1.8-7.7); NEUTROPHILS % 59.3 % (36.0-66.0); PLATELET COUNT, AUTOMATED 103 k/mm3 (150-450)
[2016-08-24] MEDS ORDERED: POTASSIUM CHLORIDE 10 MEQ SR TABLET PO ONE (10:30)
--- NOTE | 2016-08-24 10:44 | IPNPDOC ---
Subjective Date Seen The patient was seen on 08/24/16. Subjective Chief Complaint/HPI The patient is a 71-year-old male admitted with a reason for visit of Hyperkalemia;Hypoxia. Events since last encounter slowly improving , dopamine is being weaned, no sob , no cough , slept well last night. No fever or chills, no chest pain , rash improving. Objective Physical Examination General Exam: Positive: Alert, Cooperative, No Acute Distress Eye Exam: Positive: Conjunctiva & lids normal, EOMI, PERRLA, Negative: Sclera icteric ENT Exam: Positive: Atraumatic, Mucous membr. moist/pink, Pharynx Normal Neck Exam: Positive: Other (red rash behind the neck with itching.), Supple Chest Exam: Positive: Normal air movement, Other (chest wall deformity with severe scoliosis), Rales (at the bases) Heart Exam: Positive: Normal S1, Normal S2, Rate Normal, Negative: Bradycardic, Gallops, Irregular Rhythm, Murmurs, Other, Regular Rhythm, Rubs, Tachycardic Telemetry: Positive: No significant arrhythmia Abdomen Exam: Positive: Normal bowel sounds, Soft Extremity Exam: Positive: Edema (trace around the ankles) Skin Exam: Positive: Pruritus, Rash (red maculo papular rash on the back . red velvety area with itching on the back of the neck.) Neuro Exam: Positive: Other (childhood polio related bilateral upper extremity weakness, also bilateral lower extremity weakness. ) Assessment /Plan Problems (1) Acute on chronic systolic congestive heart failure Status: Acute Problem Text: severe nonischemic cardiomyopathy with EF of 20%. currently on dopamine gtt which is being tapered as tolerated. Continue weaning as long as SBP > 85. on lasix iv Has lost about 10 kgs in the hospital. (2) Acute on chronic respiratory failure with hypoxia and hypercapnia Status: Resolved Problem Text: due to decompensated CHF on the back ground of restrictive chest wall disease and possibly TAPAN. was intubated initially then successfully extubated on 08/19/16 Now on nocturnal BIPAP. will change to table top bipap once ready to be transferred to the floors. patient will need sleep studies after discharge. 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 (5) History of poliomyelitis Status: Chronic Problem Text: has quadriparesis but able to ambulate with abnormal gait and compensations. (6) AICD (automatic cardioverter/defibrillator) present Status: Chronic (7) Nonischemic cardiomyopathy Status: Chronic Problem Text: EF of 20%. (8) Rash Status: Acute Problem Text: / fungal rash vs drug rash will give nystatin powder and triamcinolone ointment. (9) CAD (coronary artery disease) Status: Chronic Response to Treatment: Stable (10) Thrombocytopenia Status: Chronic Problem Text: on fondaparinaux. Plan/VTE VTE Prophylaxis Ordered?: Yes Plan/Urinary Catheter Reason for insertion/continuin: Critical Pt monitoring VS, I&O, 24H, Fishbone Vital Signs/I&O Vital Signs Date Time Temp Pulse Resp B/P Pulse Ox O2 Delivery O2 Flow Rate FiO2 08/24/16 07:00 82 18 93/52 93 Nasal Cannula 1.0 08/24/16 04:00 97.6 08/22/16 05:00 45 I&O- Last 24 Hours up to 6 AM 08/24/16 06:00 Intake Total 583.4 ml Output Total 926 ml Balance -342.6 ml Laboratory Data 24H LABS Laboratory Tests 2 08/24/16 06:22: Blood Urea Nitrogen 15, Creatinine 0.37L, Sodium Level 142, Potassium Level 3.4L , Chloride Level 94L, Carbon Dioxide Level 44H, Calcium Level 7.5L, Phosphorus Level 2.5, Aspartate Amino Transf (AST/SGOT) 46H, Alanine Aminotransferase (ALT/ SGPT) 46, Lactate Dehydrogenase 384H, Total Creatine Kinase 74, Alkaline Phosphatase 73, Total Bilirubin 0.8, Triglycerides Level 84, Cholesterol Level 165, Total Protein 5.3L, Albumin 3.0L, Albumin/Globulin Ratio 1.30, Anion Gap 4L , Glomerular Filtration Rate > 60.0 08/24/16 07:51: Blood Urea Nitrogen 15, Creatinine 0.39L, Sodium Level 144, Potassium Level 3.4L , Chloride Level 96L, Carbon Dioxide Level 44H, Calcium Level 7.4L, Phosphorus Level 2.5, Aspartate Amino Transf (AST/SGOT) 44H, Alanine Aminotransferase (ALT/ SGPT) 44, Lactate Dehydrogenase 343H, Total Creatine Kinase 61, Alkaline Phosphatase 71, Total Bilirubin 0.8, Triglycerides Level 83, Cholesterol Level 161, Total Protein 5.2L, Albumin 3.0L, Albumin/Globulin Ratio 1.36, Anion Gap 4L , Glomerular Filtration Rate > 60.0 08/24/16 09:05: White Blood Count 4.2, Red Blood Count 4.45, Hemoglobin 15.5, Hematocrit 46.2, Mean Corpuscular Volume 103.9H, Mean Corpuscular Hemoglobin 34.8H, Mean Corpuscular Hemoglobin Concent 33.5, Red Cell Distribution Width 13.0, Platelet Count 103L, Neutrophils (%) (Auto) 59.3, Lymphocytes (%) (Auto) 10.9L, Monocytes (%) (Auto) 10.9H, Eosinophils (%) (Auto) 13.8H, Basophils (%) (Auto) 0.7, Neutrophils # (Auto) 2.5, Lymphocytes # (Auto) 0.5L, Monocytes # (Auto) 0.5 , Eosinophils # (Auto) 0.6H, Basophils # (Auto) 0.0, Large Unclassified Cells # 0.2, Large Unclassified Cells % 4.3H CBC/BMP Laboratory Tests 08/24/16 06:22 Calcium Level 7.5 L, Phosphorus Level 2.5, Aspartate Amino Transf (AST/SGOT) 46 H, Alanine Aminotransferase (ALT/SGPT) 46, Lactate Dehydrogenase 384 H, Total Creatine Kinase 74, Alkaline Phosphatase 73, Total Bilirubin 0.8, Triglycerides Level 84, Cholesterol Level 165, Total Protein 5.3 L, Albumin 3.0 L 08/24/16 07:51 Calcium Level 7.4 L, Phosphorus Level 2.5, Aspartate Amino Transf (AST/SGOT) 44 H, Alanine Aminotransferase (ALT/SGPT) 44, Lactate Dehydrogenase 343 H, Total Creatine Kinase 61, Alkaline Phosphatase 71, Total Bilirubin 0.8, Triglycerides Level 83, Cholesterol Level 161, Total Protein 5.2 L, Albumin 3.0 L 08/24/16 09:05 Red Blood Count 4.45, Mean Corpuscular Volume 103.9 H, Mean Corpuscular Hemoglobin 34.8 H, Mean Corpuscular Hemoglobin Concent 33.5, Red Cell Distribution Width 13.0, Neutrophils (%) (Auto) 59.3, Lymphocytes (%) (Auto) 10.9 L, Monocytes (%) (Auto) 10.9 H, Eosinophils (%) (Auto) 13.8 H, Basophils (% ) (Auto) 0.7, Neutrophils # (Auto) 2.5, Lymphocytes # (Auto) 0.5 L, Monocytes # (Auto) 0.5, Eosinophils # (Auto) 0.6 H, Basophils # (Auto) 0.0 Microbiology Microbiology 08/17/16 Blood Culture - Final, Complete NO GROWTH AFTER 5 DAYS 08/17/16 Blood Culture - Final, Complete NO GROWTH AFTER 5 DAYS 08/17/16 Gram Stain - Final, Complete 08/17/16 Sputum Culture - Final, Complete Streptococcus Constellatus 08/16/16 Respiratory Virus Panel (PCR) ([facility]) - Final, Complete LUIS MORTON MD Aug 24, 2016 10:44
[2016-08-24] MEDS: DOPamine HCL 800 MG in APPROPRIATE DILUENT 1 EA IV SCH (14:17)
[2016-08-24] MEDS: PRAVASTATIN 10 MG TAB PO SCH (20:13)
[2016-08-25] VITALS (31 sets, daily range): BP systolic 86–121; BP diastolic 48–73
[2016-08-25] MEDS: FUROSEMIDE 20 MG/2 ML VIAL (J1940) IV SCH ×4 (00:08→23:08)
[2016-08-25] MEDS: SODIUM CHLORIDE 0.9% INJ 10 ML SYR IV SCH ×2 (05:05→17:38)
[2016-08-25 05:33] LABS: BASO % 1.2 % (0.0-1.0); EOS # 0.6 K/mm3 (0.0-0.50); EOS % 13.9 % (0.0-3.0); LARGE UNSTAINED CELL # 0.2 K/mm3 (0.0-0.4); LARGE UNSTAINED CELL % 4.9 % (0.0-4.0); LYMPH # 0.7 K/mm3 (1.5-4.5); LYMPH % 14.5 % (24.0-44.0); MEAN CORPUSCULAR HEMOGLOBIN 33.1 pg (27.0-33.0); MEAN CORPUSCULAR HGB CONC 31.4 g/dl (32.0-36.5); MEAN CORPUSCULAR VOLUME 105.5 fl (80.0-96.0); MONO # 0.6 K/mm3 (0.0-0.8); MONO % 12.7 % (0.0-5.0); NEUTROPHILS # 2.4 K/mm3 (1.8-7.7); NEUTROPHILS % 52.8 % (36.0-66.0); PLATELET COUNT, AUTOMATED 121 k/mm3 (150-450); RED CELL DISTRIBUTION WIDTH 12.8 % (11.5-14.5); WHITE BLOOD COUNT 4.5 K/mm3 (4.0-10.0)
[2016-08-25 05:46] LABS: ALBUMIN 3.2 GM/DL (3.2-5.2); ALBUMIN/GLOBULIN RATIO 1.23 (1.00-1.93); ALKALINE PHOSPHATASE 80 U/L (45-117); ALT/SGPT 46 U/L (12-78); ANION GAP 2 MEQ/L (8-16); AST/SGOT 42 U/L (15-37); BILIRUBIN,TOTAL 0.7 MG/DL (0.2-1.0); BLOOD UREA NITROGEN 18 MG/DL (7-18); CALCIUM LEVEL 7.8 MG/DL (8.8-10.2); CARBON DIOXIDE LEVEL 44 MEQ/L (21-32); CHLORIDE LEVEL 97 MEQ/L (98-107); CHOLESTEROL LEVEL 184 MG/DL (< 200); CREATININE FOR GFR 0.48 MG/DL (0.70-1.30); GLOMERULAR FILTRATION RATE > 60.0 (>42); GLUCOSE, FASTING 103 MG/DL (83-110); PHOSPHORUS LEVEL 2.5 MG/DL (2.5-4.9); POTASSIUM SERUM 3.4 MEQ/L (3.5-5.1); SODIUM LEVEL 143 MEQ/L (136-145); TOTAL PROTEIN 5.8 GM/DL (6.4-8.2); TRIGLYCERIDES LEVEL 93 MG/DL (<150)
[2016-08-25] MEDS ORDERED: POTASSIUM CHLORIDE 10 MEQ SR TABLET PO ONE (06:15)
[2016-08-25] MEDS: FONDAPARINUX SODIUM 2.5 MG/0.5 ML SC SCH (08:12)
[2016-08-25] MEDS: MAGNESIUM OXIDE 400 MG TAB (MAG-OX) PO SCH ×3 (08:13→20:22)
[2016-08-25] MEDS: SENOKOT S TAB PO SCH ×3 (08:13→20:27)
[2016-08-25] MEDS: CETIRIZINE (ZyrTEC) 10 MG TAB PO SCH (08:13)
[2016-08-25] MEDS: GABAPENTIN 300 MG CAP PO SCH ×2 (08:13→20:22)
[2016-08-25] MEDS: MULTIVITAMINS/MINERALS THERAP 1 TAB PO SCH (08:13)
[2016-08-25] MEDS: PANTOPRAZOLE 40MG INJ (PROTONIX) (C9113) IV SCH (08:14)
[2016-08-25] MEDS: TRIAMCINOLONE ACET 0.1% CREAM 15 GM TOP SCH ×2 (08:14→20:23)
[2016-08-25] MEDS: NYSTATIN 100,000 UNITS/GM TOPICAL PWD 15 GM TOP SCH ×2 (08:15→20:23)
[2016-08-25] MEDS: POTASSIUM CHLORIDE 10 MEQ SR TABLET PO SCH (08:19)
[2016-08-25] MEDS ORDERED: DOPamine HCL 800 MG in APPROPRIATE DILUENT 1 EA IV SCH (10:15)
--- NOTE | 2016-08-25 10:26 | IPNPDOC ---
Subjective Date Seen The patient was seen on 08/25/16. Subjective Chief Complaint/HPI The patient is a 71-year-old male admitted with a reason for visit of Hyperkalemia;Hypoxia. Events since last encounter complains of plugged right ear , both ears have lots of wax in them could not visualize the ear drum properly. feeling over all good, rash much improved, weight stable. no chest pain or SOB . no fever or chills, no nausea or vomiting or diarrhea. No abdominal pain. will order ear drops for wax. Objective Physical Examination General Exam: Positive: Alert, Cooperative, No Acute Distress Eye Exam: Positive: Conjunctiva & lids normal, EOMI, PERRLA, Negative: Sclera icteric ENT Exam: Positive: Atraumatic, Mucous membr. moist/pink, Pharynx Normal Neck Exam: Positive: Other (red rash behind the neck with itching.), Supple Chest Exam: Positive: Normal air movement, Other (chest wall deformity with severe scoliosis), Rales (at the bases) Heart Exam: Positive: Normal S1, Normal S2, Rate Normal, Negative: Bradycardic, Gallops, Irregular Rhythm, Murmurs, Other, Regular Rhythm, Rubs, Tachycardic Telemetry: Positive: No significant arrhythmia Abdomen Exam: Positive: Normal bowel sounds, Soft Extremity Exam: Positive: Edema (trace around the ankles) Skin Exam: Positive: Pruritus, Rash (red maculo papular rash on the back . red velvety area with itching on the back of the neck.) Neuro Exam: Positive: Other (childhood polio related bilateral upper extremity weakness, also bilateral lower extremity weakness. ) Assessment /Plan Problems (1) Acute on chronic systolic congestive heart failure Status: Acute Problem Text: severe nonischemic cardiomyopathy with EF of 20%. currently on dopamine gtt which is being tapered as tolerated. Continue weaning as long as SBP > 85. on lasix iv Has lost about 10 kgs in the hospital. (2) Acute on chronic respiratory failure with hypoxia and hypercapnia Status: Resolved Problem Text: due to decompensated CHF on the back ground of restrictive chest wall disease and possibly TAPAN. was intubated initially then successfully extubated on 08/19/16 Now on nocturnal BIPAP. will change to table top bipap once ready to be transferred to the floors. patient will need sleep studies after discharge. 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 (5) History of poliomyelitis Status: Chronic Problem Text: has quadriparesis but able to ambulate with abnormal gait and compensations. (6) AICD (automatic cardioverter/defibrillator) present Status: Chronic (7) Nonischemic cardiomyopathy Status: Chronic Problem Text: EF of 20%. (8) Rash Status: Acute Problem Text: / fungal rash vs drug rash will give nystatin powder and triamcinolone ointment. (9) CAD (coronary artery disease) Status: Chronic Response to Treatment: Stable (10) Thrombocytopenia Status: Chronic Problem Text: on fondaparinaux. Plan/VTE VTE Prophylaxis Ordered?: Yes Plan/Urinary Catheter Reason for insertion/continuin: Critical Pt monitoring VS, I&O, 24H, Fishbone Vital Signs/I&O Vital Signs Date Time Temp Pulse Resp B/P Pulse Ox O2 Delivery O2 Flow Rate FiO2 08/25/16 08:00 98.6 82 18 95/55 97 Room Air 08/25/16 06:31 1.0 08/22/16 05:00 45 I&O- Last 24 Hours up to 6 AM 08/25/16 05:59 Intake Total 1031.2 ml Output Total 1650 ml Balance -618.8 ml Laboratory Data 24H LABS Laboratory Tests 2 08/25/16 05:06: Blood Urea Nitrogen 18, Creatinine 0.48L, Sodium Level 143, Potassium Level 3.4L , Chloride Level 97L, Carbon Dioxide Level 44H, Calcium Level 7.8L, Phosphorus Level 2.5, Aspartate Amino Transf (AST/SGOT) 42H, Alanine Aminotransferase (ALT/ SGPT) 46, Lactate Dehydrogenase 377H, Total Creatine Kinase 63, Alkaline Phosphatase 80, Total Bilirubin 0.7, Triglycerides Level 93, Cholesterol Level 184, Total Protein 5.8L, Albumin 3.2, Albumin/Globulin Ratio 1.23, Anion Gap 2L , White Blood Count 4.5, Red Blood Count 4.75, Hemoglobin 15.7, Hematocrit 50.1 , Mean Corpuscular Volume 105.5H, Mean Corpuscular Hemoglobin 33.1H, Mean Corpuscular Hemoglobin Concent 31.4L, Red Cell Distribution Width 12.8, Platelet Count 121L, Neutrophils (%) (Auto) 52.8, Lymphocytes (%) (Auto) 14.5L, Monocytes (%) (Auto) 12.7H, Eosinophils (%) (Auto) 13.9H, Basophils (%) (Auto) 1.2H, Neutrophils # (Auto) 2.4, Lymphocytes # (Auto) 0.7L, Monocytes # (Auto) 0.6, Eosinophils # (Auto) 0.6H, Basophils # (Auto) 0.0, Glomerular Filtration Rate > 60.0, Large Unclassified Cells # 0.2, Large Unclassified Cells % 4.9H CBC/BMP Laboratory Tests 08/25/16 05:06 Calcium Level 7.8 L, Phosphorus Level 2.5, Aspartate Amino Transf (AST/SGOT) 42 H, Alanine Aminotransferase (ALT/SGPT) 46, Lactate Dehydrogenase 377 H, Total Creatine Kinase 63, Alkaline Phosphatase 80, Total Bilirubin 0.7, Triglycerides Level 93, Cholesterol Level 184, Total Protein 5.8 L, Albumin 3.2, Red Blood Count 4.75, Mean Corpuscular Volume 105.5 H, Mean Corpuscular Hemoglobin 33.1 H , Mean Corpuscular Hemoglobin Concent 31.4 L, Red Cell Distribution Width 12.8, Neutrophils (%) (Auto) 52.8, Lymphocytes (%) (Auto) 14.5 L, Monocytes (%) (Auto ) 12.7 H, Eosinophils (%) (Auto) 13.9 H, Basophils (%) (Auto) 1.2 H, Neutrophils # (Auto) 2.4, Lymphocytes # (Auto) 0.7 L, Monocytes # (Auto) 0.6, Eosinophils # (Auto) 0.6 H, Basophils # (Auto) 0.0 Microbiology Microbiology 08/17/16 Blood Culture - Final, Complete NO GROWTH AFTER 5 DAYS 08/17/16 Blood Culture - Final, Complete NO GROWTH AFTER 5 DAYS 08/17/16 Gram Stain - Final, Complete 08/17/16 Sputum Culture - Final, Complete Streptococcus Constellatus 08/16/16 Respiratory Virus Panel (PCR) ([facility]) - Final, Complete LUIS MORTON MD Aug 25, 2016 10:26
[2016-08-25] MEDS: CARBAMIDE PEROXIDE 6.5% OTIC SOLN 15ML AD SCH ×2 (14:27→20:22)
[2016-08-25] MEDS: PRAVASTATIN 10 MG TAB PO SCH (20:22)
[2016-08-26] VITALS (22 sets, daily range): BP systolic 87–129; BP diastolic 52–75
[2016-08-26] MEDS: SODIUM CHLORIDE 0.9% INJ 10 ML SYR IV SCH ×2 (05:22→16:23)
[2016-08-26 05:53] LABS: BASO % 1.2 % (0.0-1.0); EOS # 0.5 K/mm3 (0.0-0.50); EOS % 11.3 % (0.0-3.0); LARGE UNSTAINED CELL # 0.2 K/mm3 (0.0-0.4); LARGE UNSTAINED CELL % 4.9 % (0.0-4.0); LYMPH # 0.8 K/mm3 (1.5-4.5); LYMPH % 19.7 % (24.0-44.0); MEAN CORPUSCULAR HEMOGLOBIN 34.5 pg (27.0-33.0); MEAN CORPUSCULAR HGB CONC 32.9 g/dl (32.0-36.5); MEAN CORPUSCULAR VOLUME 104.8 fl (80.0-96.0); MONO # 0.4 K/mm3 (0.0-0.8); MONO % 9.3 % (0.0-5.0); NEUTROPHILS # 2.3 K/mm3 (1.8-7.7); NEUTROPHILS % 53.5 % (36.0-66.0); PLATELET COUNT, AUTOMATED 144 k/mm3 (150-450); RED CELL DISTRIBUTION WIDTH 12.8 % (11.5-14.5); WHITE BLOOD COUNT 4.3 K/mm3 (4.0-10.0)
[2016-08-26 06:26] LABS: ANION GAP 7 MEQ/L (8-16); BLOOD UREA NITROGEN 19 MG/DL (7-18); CALCIUM LEVEL 8.1 MG/DL (8.8-10.2); CARBON DIOXIDE LEVEL 39 MEQ/L (21-32); CHLORIDE LEVEL 101 MEQ/L (98-107); CREATININE FOR GFR 0.42 MG/DL (0.70-1.30); GLOMERULAR FILTRATION RATE > 60.0 (>42); GLUCOSE, FASTING 95 MG/DL (83-110); MAGNESIUM LEVEL 2.1 MG/DL (1.8-2.4); POTASSIUM SERUM 3.9 MEQ/L (3.5-5.1); SODIUM LEVEL 147 MEQ/L (136-145)
[2016-08-26] MEDS: PANTOPRAZOLE 40MG INJ (PROTONIX) (C9113) IV SCH (08:13)
[2016-08-26] MEDS: SENOKOT S TAB PO SCH ×2 (08:13→20:28)
[2016-08-26] MEDS: FONDAPARINUX SODIUM 2.5 MG/0.5 ML SC SCH (08:13)
[2016-08-26] MEDS: GABAPENTIN 300 MG CAP PO SCH ×2 (08:14→20:03)
[2016-08-26] MEDS: MULTIVITAMINS/MINERALS THERAP 1 TAB PO SCH (08:14)
[2016-08-26] MEDS: MAGNESIUM OXIDE 400 MG TAB (MAG-OX) PO SCH ×3 (08:14→20:03)
[2016-08-26] MEDS: POTASSIUM CHLORIDE 10 MEQ SR TABLET PO SCH (08:14)
[2016-08-26] MEDS: FUROSEMIDE 20 MG/2 ML VIAL (J1940) IV SCH ×3 (08:15→23:44)
[2016-08-26] MEDS: CETIRIZINE (ZyrTEC) 10 MG TAB PO SCH (08:17)
[2016-08-26] MEDS: NYSTATIN 100,000 UNITS/GM TOPICAL PWD 15 GM TOP SCH ×2 (08:17→20:03)
[2016-08-26] MEDS: CARBAMIDE PEROXIDE 6.5% OTIC SOLN 15ML AD SCH ×2 (08:18→20:03)
[2016-08-26] MEDS: TRIAMCINOLONE ACET 0.1% CREAM 15 GM TOP SCH ×2 (08:18→20:04)
--- NOTE | 2016-08-26 09:55 | IPNPDOC ---
Subjective Date Seen The patient was seen on 08/26/16. Subjective Chief Complaint/HPI The patient is a 71-year-old male admitted with a reason for visit of Hyperkalemia;Hypoxia. Events since last encounter No complaints off dopamine since yesterday, ear fullness better, rash almost resolved. , BP better. Objective Physical Examination General Exam: Positive: Alert, Cooperative, No Acute Distress Eye Exam: Positive: Conjunctiva & lids normal, EOMI, PERRLA, Negative: Sclera icteric ENT Exam: Positive: Atraumatic, Mucous membr. moist/pink, Pharynx Normal Neck Exam: Positive: Other (red rash behind the neck with itching.), Supple Chest Exam: Positive: Normal air movement, Other (chest wall deformity with severe scoliosis), Rales (at the bases) Heart Exam: Positive: Normal S1, Normal S2, Rate Normal, Negative: Bradycardic, Gallops, Irregular Rhythm, Murmurs, Other, Regular Rhythm, Rubs, Tachycardic Telemetry: Positive: No significant arrhythmia Abdomen Exam: Positive: Normal bowel sounds, Soft Extremity Exam: Positive: Edema (trace around the ankles) Skin Exam: Positive: Pruritus, Rash (red maculo papular rash on the back . red velvety area with itching on the back of the neck.) Neuro Exam: Positive: Other (childhood polio related bilateral upper extremity weakness, also bilateral lower extremity weakness. ) Assessment /Plan Problems (1) Acute on chronic systolic congestive heart failure Status: Acute Problem Text: severe nonischemic cardiomyopathy with EF of 20%. Was on dopamine stopped on 08/25/16 on lasix iv Has lost about 10 kgs in the hospital. (2) Acute on chronic respiratory failure with hypoxia and hypercapnia Status: Resolved Problem Text: due to decompensated CHF on the back ground of restrictive chest wall disease and possibly TAPAN. was intubated initially then successfully extubated on 08/19/16 Now on nocturnal BIPAP. will change to table top bipap once ready to be transferred to the floors. patient will need sleep studies after discharge. 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 (5) History of poliomyelitis Status: Chronic Problem Text: has quadriparesis but able to ambulate with abnormal gait and compensations. (6) AICD (automatic cardioverter/defibrillator) present Status: Chronic (7) Nonischemic cardiomyopathy Status: Chronic Problem Text: EF of 20%. (8) Rash Status: Acute Response to Treatment: Improving Problem Text: / fungal rash vs drug rash will give nystatin powder and triamcinolone ointment. (9) CAD (coronary artery disease) Status: Chronic Response to Treatment: Stable (10) Thrombocytopenia Status: Chronic Response to Treatment: Improving Problem Text: on fondaparinaux. Plan/VTE VTE Prophylaxis Ordered?: Yes Plan/Urinary Catheter Reason for insertion/continuin: Critical Pt monitoring VS, I&O, 24H, Fishbone Vital Signs/I&O Vital Signs Date Time Temp Pulse Resp B/P Pulse Ox O2 Delivery O2 Flow Rate FiO2 08/26/16 07:50 Room Air 08/26/16 07:50 97.2 78 18 114/72 94 08/25/16 06:31 1.0 08/22/16 05:00 45 I&O- Last 24 Hours up to 6 AM 08/26/16 06:00 Intake Total 765.1 ml Output Total 1625 ml Balance -859.9 ml Laboratory Data 24H LABS Laboratory Tests 2 08/26/16 05:24: Anion Gap 7L, White Blood Count 4.3, Red Blood Count 4.39, Hemoglobin 15.1, Hematocrit 46.0, Mean Corpuscular Volume 104.8H, Mean Corpuscular Hemoglobin 34.5H, Mean Corpuscular Hemoglobin Concent 32.9, Red Cell Distribution Width 12.8, Platelet Count 144L, Neutrophils (%) (Auto) 53.5, Lymphocytes (%) (Auto) 19.7L, Monocytes (%) (Auto) 9.3H, Eosinophils (%) (Auto) 11.3H, Basophils (%) ( Auto) 1.2H, Neutrophils # (Auto) 2.3, Lymphocytes # (Auto) 0.8L, Monocytes # ( Auto) 0.4, Eosinophils # (Auto) 0.5, Basophils # (Auto) 0.0, Blood Urea Nitrogen 19H, Creatinine 0.42L, Sodium Level 147H, Potassium Level 3.9, Chloride Level 101, Carbon Dioxide Level 39H, Calcium Level 8.1L, Glomerular Filtration Rate > 60.0, Large Unclassified Cells # 0.2, Large Unclassified Cells % 4.9H, Magnesium Level 2.1 CBC/BMP Laboratory Tests 08/26/16 05:24 Calcium Level 8.1 L, Red Blood Count 4.39, Mean Corpuscular Volume 104.8 H, Mean Corpuscular Hemoglobin 34.5 H, Mean Corpuscular Hemoglobin Concent 32.9, Red Cell Distribution Width 12.8, Neutrophils (%) (Auto) 53.5, Lymphocytes (%) ( Auto) 19.7 L, Monocytes (%) (Auto) 9.3 H, Eosinophils (%) (Auto) 11.3 H, Basophils (%) (Auto) 1.2 H, Neutrophils # (Auto) 2.3, Lymphocytes # (Auto) 0.8 L , Monocytes # (Auto) 0.4, Eosinophils # (Auto) 0.5, Basophils # (Auto) 0.0 Microbiology Microbiology 08/17/16 Blood Culture - Final, Complete NO GROWTH AFTER 5 DAYS 08/17/16 Blood Culture - Final, Complete NO GROWTH AFTER 5 DAYS 08/17/16 Gram Stain - Final, Complete 08/17/16 Sputum Culture - Final, Complete Streptococcus Constellatus 08/16/16 Respiratory Virus Panel (PCR) ([facility]) - Final, Complete LUIS MORTON MD Aug 26, 2016 09:55
[2016-08-26] MEDS: PRAVASTATIN 10 MG TAB PO SCH (20:03)
[2016-08-27] MEDS: SODIUM CHLORIDE 0.9% INJ 10 ML SYR IV SCH (05:31)
[2016-08-27 05:58] LABS: BASO # 0.1 K/mm3 (0.0-0.2); BASO % 1.6 % (0.0-1.0); EOS # 0.4 K/mm3 (0.0-0.50); EOS % 9.1 % (0.0-3.0); LARGE UNSTAINED CELL # 0.2 K/mm3 (0.0-0.4); LARGE UNSTAINED CELL % 4.2 % (0.0-4.0); LYMPH # 1.1 K/mm3 (1.5-4.5); LYMPH % 18.9 % (24.0-44.0); MEAN CORPUSCULAR HEMOGLOBIN 33.5 pg (27.0-33.0); MEAN CORPUSCULAR HGB CONC 31.6 g/dl (32.0-36.5); MONO # 0.3 K/mm3 (0.0-0.8); NEUTROPHILS # 2.9 K/mm3 (1.8-7.7); NEUTROPHILS % 60.2 % (36.0-66.0); PLATELET COUNT, AUTOMATED 150 k/mm3 (150-450); RED CELL DISTRIBUTION WIDTH 12.9 % (11.5-14.5); WHITE BLOOD COUNT 4.8 K/mm3 (4.0-10.0)
[2016-08-27 06:00] VITALS: BP 99/54
[2016-08-27 06:10] LABS: ANION GAP 6 MEQ/L (8-16); BLOOD UREA NITROGEN 22 MG/DL (7-18); CALCIUM LEVEL 8.8 MG/DL (8.8-10.2); CARBON DIOXIDE LEVEL 38 MEQ/L (21-32); CHLORIDE LEVEL 99 MEQ/L (98-107); CREATININE FOR GFR 0.57 MG/DL (0.70-1.30); GLOMERULAR FILTRATION RATE > 60.0 (>42); GLUCOSE, FASTING 96 MG/DL (83-110); POTASSIUM SERUM 4.1 MEQ/L (3.5-5.1); SODIUM LEVEL 143 MEQ/L (136-145)
[2016-08-27] MEDS: SENOKOT S TAB PO SCH (09:00)
[2016-08-27] MEDS: POTASSIUM CHLORIDE 10 MEQ SR TABLET PO SCH (09:35)
[2016-08-27] MEDS: MULTIVITAMINS/MINERALS THERAP 1 TAB PO SCH (09:35)
[2016-08-27] MEDS: MAGNESIUM OXIDE 400 MG TAB (MAG-OX) PO SCH (09:35)
[2016-08-27] MEDS: CETIRIZINE (ZyrTEC) 10 MG TAB PO SCH (09:35)
[2016-08-27] MEDS: GABAPENTIN 300 MG CAP PO SCH (09:35)
[2016-08-27] MEDS: FUROSEMIDE 20 MG/2 ML VIAL (J1940) IV SCH (09:35)
[2016-08-27] MEDS: PANTOPRAZOLE 40MG INJ (PROTONIX) (C9113) IV SCH (09:35)
[2016-08-27] MEDS: CARBAMIDE PEROXIDE 6.5% OTIC SOLN 15ML AD SCH (09:37)
[2016-08-27] MEDS: TRIAMCINOLONE ACET 0.1% CREAM 15 GM TOP SCH (09:37)
[2016-08-27] MEDS: NYSTATIN 100,000 UNITS/GM TOPICAL PWD 15 GM TOP SCH (09:37)
[2016-08-27] MEDS: FONDAPARINUX SODIUM 2.5 MG/0.5 ML SC SCH (09:38)
[2016-08-27] MEDS ORDERED: GABA-282 PO (10:18)
[2016-08-27] MEDS ORDERED: EAR6.5SO3 AD (10:18)
[2016-08-27] MEDS ORDERED: TYLE500T78 PO (10:18)
[2016-08-27] MEDS ORDERED: CORE3.12 PO (10:18)
[2016-08-27] MEDS ORDERED: SENN1TAB2 PO (10:18)
[2016-08-27] MEDS ORDERED: NYST10PW TOP (10:18)
[2016-08-27] MEDS ORDERED: TRIA1CR TOP (10:18)
[2016-08-27] MEDS ORDERED: K-TA10TA PO (10:18)
[2016-08-27] MEDS ORDERED: MAGN1TAB25 PO (10:18)
[2016-08-27] MEDS ORDERED: LASI20TA PO (10:18)
--- NOTE | 2016-08-30 09:39 | DSES ---
DATE OF ADMISSION: 08/16/2016 DATE OF DISCHARGE: 08/27/2016 PRIMARY CARE PROVIDER: Dr. Shi PATTERN VAULT CLERK: Dr. Adams DISCHARGE DIAGNOSES: 1. Cardiogenic shock due to nonischemic cardiomyopathy. 2. Decompensated systolic and diastolic congestive heart failure associated with cardiogenic shock and interstitial and alveolar pulmonary edema, last known ejection fraction (EF) of 20%, has automatic implantable cardioverter defibrillator (AICD) in place. 3. Acute on chronic respiratory failure with hypoxia and hypercapnia requiring endotracheal intubation and bilevel positive airway pressure (BiPAP) in the hospital. However, patient could not tolerate the BiPAP. 4. 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 5. History of poliomyelitis as a child with quadriparesis then, now able to ambulate with abnormal gait and compensations. 6. Possible obstructive sleep apnea (TAPAN). However, patient did not tolerate BiPAP in the hospital, so the patient will not be scheduled for any sleep study. 7. Thrombocytopenia, chronic. 8. Coronary artery disease, stable. 9. Rash, possibly fungal. 10. Prostate cancer, biopsied in 2013. 11. Dyslipidemia. 12. History of myocardial infarction. 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 DISCHARGE MEDICATIONS: - Tylenol 1000 mg by mouth three times a day as needed for pain or fever - carbamide peroxide ear drops three drops in both ears twice a day - Coreg 3.125 mg by mouth daily - Lasix 20 mg by mouth twice a day - gabapentin 300 mg by mouth twice a day - magnesium oxide 400 mg by mouth twice a day - Nystatin powder topically twice a day - potassium chloride 10 mEq by mouth twice a day - Senna Plus one tablet by mouth twice a day - triamcinolone acetate ointment topically twice a day - aspirin 325 mg by mouth daily - cetirizine 10 mg by mouth daily - multivitamin one tablet daily - pravastatin 10 mg at bedtime - Prolia 60 mg subcutaneous as directed HOSPITAL COURSE: This is a 71-year-old male with nonischemic cardiomyopathy with an ejection fraction (EF) of 20%, severe chest wall deformity with scoliosis who presented to the hospital with shortness of breath and bilateral lower extremity swelling. The patient was diagnosed with acute on chronic hypoxic and hypercarbic respiratory failure due to decompensated systolic and diastolic congestive heart failure with cardiogenic shock. The patient was gently intubated soon after admission as the patient was not doing well with bilevel positive airway pressure (BiPAP) support. The patient remained intubated for about four days with improvement in his respiratory failure. Patient, in the meantime, was being treated for cardiogenic shock with vasopressor and inotropic agent support along with diuresis. The patient responded to treatment and started diuresing well which improved his respiratory condition and patient was successfully extubated on 08/19/2016. Patient was continued on treatment for cardiogenic shock with dopamine and diuresis. Gradually, the patient lost about 10 kg of weight in the hospital with significant improvement in his respiratory status. Initially, it was felt that he may not survive this hospitalization as with his status of congestive heart failure and ischemic cardiomyopathy and cardiogenic shock, there is only 10% survival rate of 30 days. Successfully dopamine was weaned off and the patient was moved out of intensive care unit (ICU). The patient was evaluated by physical therapy in the hospital and was mobilized, and it was felt that the patient was close to his functional baseline on the day of discharge. On the day of discharge, patient had stable vital signs, was not requiring any oxygen, was functionally close to his baseline, and symptom free. In the hospital, the patient was tried on BiPAP as it was felt that he may have some underlying obstructive sleep apnea (TAPAN) on top of restrictive lung disease. However, patient had severe pressure even after trying different size of masks but he could not tolerate it, so the BiPAP was discontinued and the patient was not scheduled for any sleep studies as even if it was positive, the patient would not be able to tolerate the BiPAP or the continuous positive airway pressure (CPAP) at home. PHYSICAL EXAMINATION: VITAL SIGNS: Temperature 97.7, pulse 82, respiratory rate 18, blood pressure 99/54, pulse oximetry 92% in room air. GENERAL: Patient awake, alert and oriented times three, sitting up in bed, in no acute distress. HEENT: Normocephalic, atraumatic. Moist mucous membranes. Anicteric eyes. CHEST: Clear to auscultation. CARDIOVASCULAR: S1, S2, regular. No rub, murmur, or gallop. ABDOMEN: Soft, nontender, bowel sounds present. EXTREMITIES: Trace edema around the ankles. LABORATORY DATA: WBC 4.8, hemoglobin 15.2, platelets 150. Sodium 143, potassium 4.1, chloride 99, bicarbonate 38, BUN 22, creatinine 0.5. Liver function tests are normal. Heparin-induced antibody level was 0.137 which was negative. Blood cultures were negative. Respiratory viral panel was negative. DISPOSITION: The patient is discharged home in a stable condition. DISCHARGE INSTRUCTIONS: Patient to followup with Dr. Adams in three days. Patient to followup with primary care provider in one week. No added salt diet. Fluid restriction 1500 mL for 24 hours. Activity as tolerated.
== END 2016-08-27 12:54 | disposition home or self-care (01) | DRG 291 ==
LOC: M ED 18:35 → M ED INP 22:21 → M ICU 08-17 03:23 → M MSPAV 08-26 23:17
PROVIDERS: ADMIT Hospitalist; ATTEND Internal Medicine Nephrology
PROC: 04HL33Z Insertion of Infusion Device into Left Femoral Artery, Percutaneous Approach (ICD-10-PCS; principal; 2016-08-16)
DX: I50.43 Acute on chronic combined systolic (congestive) and diastolic (congestive) heart failure (principal); R57.0 Cardiogenic shock; J96.01 Acute respiratory failure with hypoxia; J96.02 Acute respiratory failure with hypercapnia; I42.5 Other restrictive cardiomyopathy; G47.33 Obstructive sleep apnea (adult) (pediatric); E78.5 Hyperlipidemia, unspecified; I25.2 Old myocardial infarction; Z85.46 Personal history of malignant neoplasm of prostate; D69.6 Thrombocytopenia, unspecified; Z95.810 Presence of automatic (implantable) cardiac defibrillator; G14 Postpolio syndrome; R21 Rash and other nonspecific skin eruption; Z79.899 Other long term (current) drug therapy; Z79.82 Long term (current) use of aspirin; Z88.0 Allergy status to penicillin; Z91.040 Latex allergy status; I44.0 Atrioventricular block, first degree; M41.9 Scoliosis, unspecified; Z87.891 Personal history of nicotine dependence; E87.5 Hyperkalemia; D75.1 Secondary polycythemia

== ENCOUNTER → 2016-09-12 | Outpatient (CLI) | payer MEDICARE, OTHER ==
[~2016-09-12] MED LIST changes: +ANAC400T PO; +ASPI325T28 PO; +EAR6.5SO3 AD; +ENTR1TAB PO; +GABA-282 PO; +K-TA10TA PO; +LASI20TA PO; +MAGN1TAB25 PO; +NAPR550T3 PO; +NYST10PW TOP; +PRAV10TA3 PO; +SENN1TAB2 PO; +SOOL1CRE EXT; +TRIA1CR TOP; +TYLE500T78 PO; +VITMTA PO
[2016-09-12 18:51] LABS: ANION GAP 5 MEQ/L (8-16); BLOOD UREA NITROGEN 22 MG/DL (7-18); CALCIUM LEVEL 9.1 MG/DL (8.8-10.2); CARBON DIOXIDE LEVEL 38 MEQ/L (21-32); CHLORIDE LEVEL 98 MEQ/L (98-107); CREATININE FOR GFR 0.64 MG/DL (0.70-1.30); GLOMERULAR FILTRATION RATE > 60.0 (>42); GLUCOSE, FASTING 87 MG/DL (83-110); POTASSIUM SERUM 4.6 MEQ/L (3.5-5.1); SODIUM LEVEL 141 MEQ/L (136-145)
== END ==
LOC: M SMT 14:25
PROVIDERS: ATTEND Internal Medicine Cardiovascular Disease
DX: I25.10 Atherosclerotic heart disease of native coronary artery without angina pectoris (principal); I42.9 Cardiomyopathy, unspecified

== ENCOUNTER → 2016-09-27 | Outpatient (CLI) | payer OTHER, MEDICARE | LOC: M SMT 13:10 | PROVIDERS: ATTEND Internal Medicine Endocrinology, Diabetes & Metabolism | DX: M81.0 Age-related osteoporosis without current pathological fracture (principal) ==

== ENCOUNTER → 2016-11-07 | Outpatient (CLI) | payer MEDICARE, OTHER ==
[~2016-11-07] MED LIST changes: +EAR6.5DR10 AD; -EAR6.5SO3 AD; +NAPR550T22 PO; -NAPR550T3 PO
[2016-11-07 19:17] LABS: ANION GAP 6 MEQ/L (8-16); BLOOD UREA NITROGEN 25 MG/DL (7-18); CALCIUM LEVEL 9.3 MG/DL (8.8-10.2); CARBON DIOXIDE LEVEL 35 MEQ/L (21-32); CHLORIDE LEVEL 99 MEQ/L (98-107); CREATININE FOR GFR 0.58 MG/DL (0.70-1.30); GLOMERULAR FILTRATION RATE > 60.0 (>42); GLUCOSE, FASTING 76 MG/DL (83-110); MAGNESIUM LEVEL 2.4 MG/DL (1.8-2.4); POTASSIUM SERUM 4.9 MEQ/L (3.5-5.1); SODIUM LEVEL 140 MEQ/L (136-145)
== END ==
LOC: M SMT 11:48
PROVIDERS: ATTEND Internal Medicine Cardiovascular Disease
DX: I50.9 Heart failure, unspecified (principal); E83.41 Hypermagnesemia; C61 Malignant neoplasm of prostate

== ENCOUNTER → 2016-11-07 | Outpatient (CLI) | payer MEDICARE, OTHER | LOC: M SMT 11:45 | PROVIDERS: ATTEND Radiology Radiation Oncology | DX: C61 Malignant neoplasm of prostate (principal) ==

== ENCOUNTER → 2016-11-13 | Outpatient (REF) | payer MEDICARE, OTHER | LOC: M LAB REF 12:38 | PROVIDERS: ATTEND Internal Medicine | DX: Z01.89 Encounter for other specified special examinations (principal) ==

== ENCOUNTER → 2016-11-21 | Outpatient (CLI) | payer MEDICARE, OTHER ==
--- NOTE | 2016-11-22 06:44 | RADONC ---
RADIATION ONCOLOGY FOLLOWUP NOTE DATE: 11/21/2016 CHART NUMBER: [id number] DIAGNOSIS: Prostate cancer stage II A, [id number]. ECOG PERFORMANCE STATUS: 1. FOLLOW UP NOTE: Mr. 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 The patient presents today reporting that he is doing quite well with no complaints at this time related to his radiation therapy or disease. He has no urinary or bowel difficulties. No bone pain. REVIEW OF SYSTEMS: The patient's review of systems is positive for physical limitations secondary to his polio. It is otherwise noncontributory. Denies nausea, vomiting, fevers, chills, night sweats, diplopia, headaches, anxiety or depression, anorexia, weight loss, visual disturbances, chest pain, urinary or bowel difficulties, bone pain, or neurological problems. PHYSICAL EXAMINATION: The patient is a 71-year-old male in no acute distress. HEENT exam is normocephalic, atraumatic. Extraocular movements are intact. There is no palpable cervical, supraclavicular, infraclavicular, axillary, or inguinal lymphadenopathy present. Lungs are clear to auscultation and percussion. Heart has a regular rate and rhythm. Abdomen is benign with no hepatosplenomegaly, masses, or tenderness. Rectal examination reveals a normal anal sphincter tone. His prostate is smooth with no evidence of nodularity. Skeletal examination reveals no tenderness to pressure or percussion of the bony skeleton. Extremities reveal no clubbing, cyanosis, or edema. Neurologic exam is positive for losses status post polio. ASSESSMENT: The patient is clinically HARSHA at this time and will be seen by us again in 6 months for further followup. He will also continue to be followed by his other physicians in the meantime. cc: MD Ajit Rahman MD Alejandro Rodriguez, MD
== END ==
LOC: M ONCR 15:06
PROVIDERS: ATTEND Radiology Radiation Oncology
DX: C61 Malignant neoplasm of prostate (principal)

== ENCOUNTER → 2016-11-30 | Outpatient (CLI) | payer MEDICARE, OTHER ==
[2016-11-30 13:39] LABS: BLOOD UREA NITROGEN 27 MG/DL (7-18); CREATININE FOR GFR 0.59 MG/DL (0.70-1.30); GLOMERULAR FILTRATION RATE > 60.0 (>42)
== END ==
LOC: M SMT 09:34
PROVIDERS: ATTEND Pain Medicine Interventional Pain Medicine
DX: M96.1 Postlaminectomy syndrome, not elsewhere classified (principal); M46.1 Sacroiliitis, not elsewhere classified; G14 Postpolio syndrome; M47.816 Spondylosis without myelopathy or radiculopathy, lumbar region; M51.36 Other intervertebral disc degeneration, lumbar region; M43.16 Spondylolisthesis, lumbar region; M47.817 Spondylosis without myelopathy or radiculopathy, lumbosacral region

== ENCOUNTER → 2016-12-03 | Outpatient (RCR) | payer MEDICARE, OTHER | LOC: M CR 11-07 07:48 | PROVIDERS: ATTEND Internal Medicine Cardiovascular Disease | DX: Z51.89 Encounter for other specified aftercare (principal); I50.9 Heart failure, unspecified ==

== ENCOUNTER 2016-12-31 10:46 | Outpatient (RCR) | payer MEDICARE, OTHER | END 2017-01-03 | LOC: M CR 10:46 | PROVIDERS: ATTEND Internal Medicine Cardiovascular Disease | DX: Z51.89 Encounter for other specified aftercare (principal); I50.9 Heart failure, unspecified; I42.9 Cardiomyopathy, unspecified ==

== ENCOUNTER → 2017-01-21 | Outpatient (REF) | payer MEDICARE, OTHER ==
[2017-01-21 09:42] LABS: ALBUMIN 3.8 GM/DL (3.2-5.2); ALBUMIN/GLOBULIN RATIO 1.52 (1.00-1.93); ALKALINE PHOSPHATASE 69 U/L (45-117); ALT/SGPT 37 U/L (12-78); ANION GAP 3 MEQ/L (8-16); AST/SGOT 27 U/L (15-37); BILIRUBIN,TOTAL 0.8 MG/DL (0.2-1.0); BLOOD UREA NITROGEN 28 MG/DL (7-18); CALCIUM LEVEL 9.1 MG/DL (8.8-10.2); CARBON DIOXIDE LEVEL 38 MEQ/L (21-32); CHLORIDE LEVEL 102 MEQ/L (98-107); CHOLESTEROL LEVEL 188 MG/DL (<200); CREATININE FOR GFR 0.58 MG/DL (0.70-1.30); GLOMERULAR FILTRATION RATE > 60.0 (>42); GLUCOSE, FASTING 89 MG/DL (83-110); POTASSIUM SERUM 4.8 MEQ/L (3.5-5.1); SODIUM LEVEL 143 MEQ/L (136-145); TOTAL PROTEIN 6.3 GM/DL (6.4-8.2); TRIGLYCERIDES LEVEL 83 MG/DL (<150)
[2017-01-23 14:47] LABS: MAGNESIUM LEVEL 2.3 MG/DL (1.8-2.4)
== END ==
LOC: M LAB REF 09:13
PROVIDERS: ATTEND Internal Medicine Cardiovascular Disease
DX: I50.9 Heart failure, unspecified (principal); E83.42 Hypomagnesemia

== ENCOUNTER 2017-01-30 10:46 | Outpatient (RCR) | payer MEDICARE, OTHER | END 2017-02-02 | LOC: M CR 10:46 | PROVIDERS: ATTEND Internal Medicine Cardiovascular Disease | DX: Z51.89 Encounter for other specified aftercare (principal); I50.9 Heart failure, unspecified; I42.9 Cardiomyopathy, unspecified ==

== ENCOUNTER → 2017-04-04 | Outpatient (REF) | payer MEDICARE, OTHER ==
[2017-04-04 16:23] LABS: CALCIUM LEVEL 9.7 MG/DL (8.8-10.2)
== END ==
LOC: M LABDRAW1 14:41
PROVIDERS: ATTEND Internal Medicine Endocrinology, Diabetes & Metabolism
DX: M81.0 Age-related osteoporosis without current pathological fracture (principal)

== ENCOUNTER → 2017-05-08 | Outpatient (CLI) | payer MEDICARE, OTHER ==
[2017-05-08 20:27] LABS: PROSTATIC SPECIFIC AG MONITOR 1.44 NG/ML (< 4.0)
== END ==
LOC: M SMT 13:37
DX: C61 Malignant neoplasm of prostate (principal)
CPT/HCPCS: 84153

== ENCOUNTER → 2017-05-15 | Outpatient (CLI) | payer MEDICARE, OTHER | LOC: M ONCR 15:10 | DX: C61 Malignant neoplasm of prostate (principal) | CPT/HCPCS: G0463 ==

== ENCOUNTER → 2017-10-08 | Outpatient (CLI) | payer MEDICARE, OTHER ==
[2017-10-08 18:52] LABS: CALCIUM LEVEL 9.7 MG/DL (8.8-10.2)
== END ==
LOC: M SMT 13:40
DX: M81.0 Age-related osteoporosis without current pathological fracture (principal)
CPT/HCPCS: 82310

== ENCOUNTER 2017-10-14 17:00 | Emergency (ER) | payer MEDICARE, OTHER ==
[2017-10-14 18:20] LABS: BASO % 1.2 % (0.0-1.0); EOS # 0.1 10^3/uL (0.0-0.50); EOS % 2.2 % (0.0-3.0); HEMATOCRIT 50.3 % (42.0-52.0); IMMATURE GRANULOCYTE % 0.3 % (0-3.0); LYMPH # 0.6 10^3/uL (1.5-4.5); LYMPH % 18.8 % (24.0-44.0); MEAN CORPUSCULAR HEMOGLOBIN 32.3 pg (27.0-33.0); MEAN CORPUSCULAR HGB CONC 31.8 g/dl (32.0-36.5); MEAN CORPUSCULAR VOLUME 101.6 fl (80.0-96.0); MONO # 0.6 10^3/uL (0.0-0.8); MONO % 17.3 % (0.0-5.0); NEUTROPHILS % 60.2 % (36.0-66.0); PLATELET COUNT, AUTOMATED 101 10^3/uL (150-450); RED BLOOD COUNT 4.95 10^6/uL (4.30-6.10); RED CELL DISTRIBUTION WIDTH 16.6 % (11.5-14.5); WHITE BLOOD COUNT 3.2 10^3/uL (4.0-10.0)
[2017-10-14 18:46] LABS: ALBUMIN 3.8 GM/DL (3.2-5.2); ALBUMIN/GLOBULIN RATIO 1.46 (1.00-1.93); ALKALINE PHOSPHATASE 62 U/L (45-117); ALT/SGPT 30 U/L (12-78); ANION GAP 6 MEQ/L (8-16); AST/SGOT 56 U/L (7-37); BILIRUBIN,DIRECT 0.2 MG/DL (0.0-0.2); BILIRUBIN,TOTAL 1.4 MG/DL (0.2-1.0); BLOOD UREA NITROGEN 25 MG/DL (7-18); CALCIUM LEVEL 9.4 MG/DL (8.8-10.2); CARBON DIOXIDE LEVEL 36 MEQ/L (21-32); CHLORIDE LEVEL 97 MEQ/L (98-107); CPK CREATINE PHOSPHOKINASE 179 U/L (39-308); CREATININE FOR GFR 0.82 MG/DL (0.70-1.30); GLOMERULAR FILTRATION RATE > 60.0 (>42); GLUCOSE, FASTING 82 MG/DL (70-100); POTASSIUM SERUM 5.1 MEQ/L (3.5-5.1); SODIUM LEVEL 139 MEQ/L (136-145); TOTAL PROTEIN 6.4 GM/DL (6.4-8.2); TROPONIN I 0.14 NG/ML (< 0.10)
[2017-10-14 18:52] LABS: CK-MB VALUE MASS 9.6 NG/ML (<3.6); MB/CK RELATIVE INDEX 5.36 (< OR =4); NT-PRO BNP 6990 PG/ML (<125)
[2017-10-14] MEDS: FUROSEMIDE 40 MG/4 ML VIAL (J1940) IV (21:00)
[2017-10-14 21:37] LABS: VENOUS BASE EXCESS 5.6 (-2.0-2.0); VENOUS HCO3 37.8 MEQ/L (23.0-27.0); VENOUS O2 SATURATION 56.7 % (60.0-80.0); VENOUS PARTIAL PRESSURE CO2 91.9 mmHg (38.0-50.0); VENOUS PARTIAL PRESSURE O2 35.5 mmHg (30.0-50.0); VENOUS PH 7.232 UNITS (7.330-7.430); VENOUS STANDARD HCO3 28.2 MEQ/L; VENOUS TOTAL CO2 40.6 MEQ/L (24.0-28.0)
[2017-10-14 22:01] LABS: CPK CREATINE PHOSPHOKINASE 111 U/L (39-308); TROPONIN I 0.14 NG/ML (< 0.10)
[2017-10-14 23:19] LABS: ABG BASE EXCESS 8.9 (-2.0-2.0); ABG HCO3 35.8 MEQ/L (22.0-26.0); ABG O2 SATURATION 88.1 % (95.0-99.0); ABG PARTIAL PRESSURE CO2 56.2 mmHg (35.0-45.0); ABG PARTIAL PRESSURE O2 53.7 mmHg (75.0-100.0); ABG STANDARD HCO3 32.4 MEQ/L (22.0-26.0); ABG TOTAL CO2 37.5 MEQ/L (23.0-31.0); ABG pH (ARTERIAL) 7.422 UNITS (7.350-7.450)
== END 2017-10-14 23:45 | disposition home or self-care (01) ==
LOC: M ED 23:45
DX: I50.9 Heart failure, unspecified (principal); R60.0 Localized edema; J98.9 Respiratory disorder, unspecified; M41.9 Scoliosis, unspecified; Z88.0 Allergy status to penicillin; Z91.040 Latex allergy status; Z79.899 Other long term (current) drug therapy; Z79.82 Long term (current) use of aspirin
CPT/HCPCS: J1940

== ENCOUNTER → 2017-10-21 | Outpatient (CLI) | payer MEDICARE, OTHER ==
[2017-10-21 18:20] LABS: BLOOD UREA NITROGEN 32 MG/DL (7-18); CALCIUM LEVEL 9.7 MG/DL (8.8-10.2); CHLORIDE LEVEL 83 MEQ/L (98-107); GLOMERULAR FILTRATION RATE > 60.0 (>42); GLUCOSE, FASTING 86 MG/DL (70-100); NT-PRO BNP 7219 PG/ML (<125); POTASSIUM SERUM 4.3 MEQ/L (3.5-5.1); SODIUM LEVEL 135 MEQ/L (136-145)
[2017-10-21 18:32] LABS: ANION GAP 5 MEQ/L (8-16); CARBON DIOXIDE LEVEL 47 MEQ/L (21-32)
== END ==
LOC: M SMT 14:40
DX: I42.9 Cardiomyopathy, unspecified (principal); I25.10 Atherosclerotic heart disease of native coronary artery without angina pectoris
CPT/HCPCS: 80048

== ENCOUNTER 2017-11-03 10:44 | Emergency (ER) | payer MEDICARE, OTHER ==
[2017-11-03 11:10] LABS: HEMATOCRIT 53.8 % (42.0-52.0); HEMOGLOBIN 17.1 g/dl (13.5-17.5); IMMATURE GRANULOCYTE % 0.2 % (0-3.0); LYMPH # 0.5 10^3/uL (1.5-4.5); LYMPH % 12.7 % (24.0-44.0); MEAN CORPUSCULAR HGB CONC 31.8 g/dl (32.0-36.5); MEAN CORPUSCULAR VOLUME 100.6 fl (80.0-96.0); MONO # 0.7 10^3/uL (0.0-0.8); MONO % 17.5 % (0.0-5.0); NEUTROPHILS # 2.7 10^3/uL (1.8-7.7); NEUTROPHILS % 67.6 % (36.0-66.0); PLATELET COUNT, AUTOMATED 110 10^3/uL (150-450); RED BLOOD COUNT 5.35 10^6/uL (4.30-6.10); RED CELL DISTRIBUTION WIDTH 15.6 % (11.5-14.5)
[2017-11-03 11:34] LABS: ERYTHROCYTE SEDIMENTATION RATE 1 mm/hr (0-20)
[2017-11-03 12:05] LABS: ALBUMIN 4.3 GM/DL (3.2-5.2); ALBUMIN/GLOBULIN RATIO 1.59 (1.00-1.93); ALKALINE PHOSPHATASE 76 U/L (45-117); ALT/SGPT 33 U/L (12-78); AST/SGOT 30 U/L (7-37); BILIRUBIN,DIRECT 0.4 MG/DL (0.0-0.2); BILIRUBIN,TOTAL 1.4 MG/DL (0.2-1.0); BLOOD UREA NITROGEN 61 MG/DL (7-18); CALCIUM LEVEL 9.7 MG/DL (8.8-10.2); CHLORIDE LEVEL 81 MEQ/L (98-107); CPK CREATINE PHOSPHOKINASE 60 U/L (39-308); CREATININE FOR GFR 0.91 MG/DL (0.70-1.30); GLOMERULAR FILTRATION RATE > 60.0 (>42); GLUCOSE, FASTING 88 MG/DL (70-100); MAGNESIUM LEVEL 2.6 MG/DL (1.8-2.4); POTASSIUM SERUM 4.2 MEQ/L (3.5-5.1); SODIUM LEVEL 136 MEQ/L (136-145)
[2017-11-03 12:32] LABS: ANION GAP 9 MEQ/L (8-16); CARBON DIOXIDE LEVEL 46 MEQ/L (21-32)
== END 2017-11-03 13:54 | disposition home or self-care (01) ==
LOC: M ED 10:44
DX: M62.838 Other muscle spasm (principal); I25.10 Atherosclerotic heart disease of native coronary artery without angina pectoris; I50.9 Heart failure, unspecified; I25.2 Old myocardial infarction; M41.9 Scoliosis, unspecified; Z86.12 Personal history of poliomyelitis; Z85.528 Personal history of other malignant neoplasm of kidney; Z95.810 Presence of automatic (implantable) cardiac defibrillator; Z98.1 Arthrodesis status; Z88.0 Allergy status to penicillin; Z91.040 Latex allergy status; Z79.899 Other long term (current) drug therapy; Z79.82 Long term (current) use of aspirin
CPT/HCPCS: 82550

== ENCOUNTER 2017-11-07 15:41 | Inpatient (IN) | payer MEDICARE, OTHER ==
[2017-11-07 16:59] LABS: HEMOGLOBIN 16.6 g/dl (13.5-17.5); MEAN CORPUSCULAR HEMOGLOBIN 32.4 pg (27.0-33.0); MEAN CORPUSCULAR HGB CONC 31.9 g/dl (32.0-36.5); MEAN CORPUSCULAR VOLUME 101.6 fl (80.0-96.0); PLATELET COUNT, AUTOMATED 104 10^3/uL (150-450); RED BLOOD COUNT 5.12 10^6/uL (4.30-6.10); RED CELL DISTRIBUTION WIDTH 15.3 % (11.5-14.5); WHITE BLOOD COUNT 5.2 10^3/uL (4.0-10.0)
[2017-11-07 17:25] LABS: ANION GAP 7 MEQ/L (8-16); BLOOD UREA NITROGEN 81 MG/DL (7-18); CALCIUM LEVEL 9.8 MG/DL (8.8-10.2); CARBON DIOXIDE LEVEL 43 MEQ/L (21-32); CHLORIDE LEVEL 87 MEQ/L (98-107); CPK CREATINE PHOSPHOKINASE 63 U/L (39-308); CREATININE FOR GFR 0.98 MG/DL (0.70-1.30); GLOMERULAR FILTRATION RATE > 60.0 (>42); GLUCOSE, FASTING 83 MG/DL (70-100); POTASSIUM SERUM 3.7 MEQ/L (3.5-5.1); SODIUM LEVEL 137 MEQ/L (136-145)
[2017-11-07 17:26] LABS: CK-MB VALUE MASS 4.3 NG/ML (<3.6); MB/CK RELATIVE INDEX 6.82 (< OR =4); NT-PRO BNP 8796 PG/ML (<125)
[2017-11-07 20:11] LABS: CPK CREATINE PHOSPHOKINASE 49 U/L (39-308); TROPONIN I 0.23 NG/ML (< 0.10)
[2017-11-07 20:12] LABS: CK-MB VALUE MASS 4.3 NG/ML (<3.6); MB/CK RELATIVE INDEX 8.77 (< OR =4)
[2017-11-08] MEDS: FUROSEMIDE 40 MG/4 ML VIAL (J1940) IV (01:33)
[2017-11-08] MEDS: GABAPENTIN 100 MG CAP PO (01:44)
[2017-11-08] MEDS: PRAVASTATIN 10 MG TAB PO ×2 (01:44→20:35)
[2017-11-08] MEDS: CARVedilol 3.125 MG TAB PO ×2 (01:45→09:00)
[2017-11-08] MEDS: GABAPENTIN 300 MG CAP PO (01:45)
[2017-11-08] MEDS: FUROSEMIDE injection 250 MG in D5W 225 ML IV (02:50)
[2017-11-08] MEDS: POTASSIUM CHLORIDE 10 MEQ SR TABLET PO (04:56)
[2017-11-08 04:59] LABS: HEMATOCRIT 57.9 % (42.0-52.0); HEMOGLOBIN 18.1 g/dl (13.5-17.5); MEAN CORPUSCULAR HGB CONC 31.3 g/dl (32.0-36.5); MEAN CORPUSCULAR VOLUME 102.3 fl (80.0-96.0); PLATELET COUNT, AUTOMATED 109 10^3/uL (150-450); RED BLOOD COUNT 5.66 10^6/uL (4.30-6.10); RED CELL DISTRIBUTION WIDTH 15.4 % (11.5-14.5); WHITE BLOOD COUNT 5.7 10^3/uL (4.0-10.0)
[2017-11-08 05:10] LABS: ALBUMIN/GLOBULIN RATIO 1.29 (1.00-1.93); ALKALINE PHOSPHATASE 59 U/L (45-117); ALT/SGPT 36 U/L (12-78); ANION GAP 8 MEQ/L (8-16); AST/SGOT 37 U/L (7-37); BILIRUBIN,TOTAL 1.7 MG/DL (0.2-1.0); BLOOD UREA NITROGEN 79 MG/DL (7-18); CALCIUM LEVEL 9.8 MG/DL (8.8-10.2); CARBON DIOXIDE LEVEL 42 MEQ/L (21-32); CHLORIDE LEVEL 87 MEQ/L (98-107); CREATININE FOR GFR 1.05 MG/DL (0.70-1.30); GLOMERULAR FILTRATION RATE > 60.0 (>42); GLUCOSE, FASTING 134 MG/DL (70-100); MAGNESIUM LEVEL 2.6 MG/DL (1.8-2.4); POTASSIUM SERUM 3.9 MEQ/L (3.5-5.1); SODIUM LEVEL 137 MEQ/L (136-145); TOTAL PROTEIN 7.1 GM/DL (6.4-8.2)
[2017-11-08 05:23] LABS: ESTIMATED AVERAGE GLUCOSE 131 MG/DL (60-110); HEMOGLOBIN A1c 6.2 %
[2017-11-08] MEDS: HEPARIN SOD (PORCINE) 5000 UNITS/ML VIAL SQ ×3 (06:37→22:12)
[2017-11-08 08:17] LABS: BEDSIDE GLUCOSE 157 MG/DL (83-110)
[2017-11-08 08:22] LABS: ABG BASE EXCESS 10.8 (-2.0-2.0); ABG HCO3 48.3 MEQ/L (22.0-26.0); ABG O2 SATURATION 95.5 % (95.0-99.0); ABG PARTIAL PRESSURE O2 92.7 mmHg (75.0-100.0); ABG STANDARD HCO3 34.5 MEQ/L (22.0-26.0); ABG TOTAL CO2 52.6 MEQ/L (23.0-31.0)
[2017-11-08 08:28] LABS: ABG PARTIAL PRESSURE CO2 140.5 mmHg (35.0-45.0); ABG pH (ARTERIAL) 7.154 UNITS (7.350-7.450)
[2017-11-08] MEDS ORDERED: SUCCINYLCHOLINE INJ 200 MG/10 ML VIAL (J0330) As Ordered (08:34)
[2017-11-08] MEDS ORDERED: ETOMIDATE INJ 20MG/10ML VIAL As Ordered (08:34)
[2017-11-08] MEDS: ASPIRIN ENTERIC 325 MG TAB PO (09:00)
[2017-11-08] MEDS ORDERED: FUROSEMIDE 40 MG TAB PO (09:00)
[2017-11-08] MEDS ORDERED: ALBUTEROL SULFATE 2.5 MG/0.5 ML INH NEB SOLN NEB (09:00)
[2017-11-08] MEDS: VITAMIN D 1,000 INTERNATIONAL UNITS TABLET PO (09:00)
[2017-11-08] MEDS ORDERED: GABAPENTIN 100 MG CAP PO (09:00)
[2017-11-08] MEDS ORDERED: REFRIGERATOR IV KEYS XX (09:00)
[2017-11-08] MEDS: CHLORHEXIDINE ORAL RINSE 0.12%/15ML 120ML BOTTLE MT ×2 (09:00→20:35)
[2017-11-08] MEDS: MULTIVITAMINS/MINERALS THERAP 1 TAB PO (09:00)
[2017-11-08] MEDS ORDERED: DOBUTamine 500 MG/250 ML BAG IN D5W (2,000 MCG/ML) (J1250) As Ordered (09:57)
[2017-11-08 09:59] LABS: CK-MB VALUE MASS 4.7 NG/ML (<3.6); CPK CREATINE PHOSPHOKINASE 58 U/L (39-308); MYOGLOBIN 133 NG/ML (16-116); TROPONIN I 0.28 NG/ML (< 0.10)
[2017-11-08] MEDS ORDERED: DOBUTamine HCL 500,000 MCG in APPROPRIATE DILUENT 1 EA IV (10:00)
[2017-11-08 10:07] LABS: ABG BASE EXCESS 14.1 (-2.0-2.0); ABG HCO3 36.1 MEQ/L (22.0-26.0); ABG O2 SATURATION 92.1 % (95.0-99.0); ABG PARTIAL PRESSURE CO2 35.3 mmHg (35.0-45.0); ABG STANDARD HCO3 37.9 MEQ/L (22.0-26.0); ABG TOTAL CO2 37.1 MEQ/L (23.0-31.0)
[2017-11-08 10:15] LABS: ABG PARTIAL PRESSURE O2 43.4 mmHg (75.0-100.0); ABG pH (ARTERIAL) 7.627 UNITS (7.350-7.450)
[2017-11-08] MEDS: MIDAZOLAM HCL 100 MG in D5W 80 ML IV (10:19)
[2017-11-08 11:02] LABS: CK-MB VALUE MASS 4.4 NG/ML (<3.6); CPK CREATINE PHOSPHOKINASE 43 U/L (39-308); MB/CK RELATIVE INDEX 10.23 (< OR =4); TROPONIN I 0.31 NG/ML (< 0.10)
[2017-11-08 11:11] LABS: ABG BASE EXCESS 10.9 (-2.0-2.0); ABG HCO3 32.6 MEQ/L (22.0-26.0); ABG PARTIAL PRESSURE CO2 33.7 mmHg (35.0-45.0); ABG PARTIAL PRESSURE O2 72.8 mmHg (75.0-100.0); ABG STANDARD HCO3 34.7 MEQ/L (22.0-26.0); ABG TOTAL CO2 33.6 MEQ/L (23.0-31.0)
[2017-11-08 11:15] LABS: ABG pH (ARTERIAL) 7.603 UNITS (7.350-7.450)
[2017-11-08] MEDS: SUCCINYLCHOLINE INJ 200 MG/10 ML VIAL (J0330) IV (11:23)
[2017-11-08] MEDS: ETOMIDATE INJ 20MG/10ML VIAL IV (11:23)
[2017-11-08] MEDS: PANTOPRAZOLE 40MG INJ (PROTONIX) (C9113) IV (11:24)
[2017-11-08] MEDS: IPRATROPIUM 0.5MG/ALBUTEROL 2.5MG INH SOL UD 3ML (DUONEB)(J7620) NEB ×4 (11:48→23:56)
[2017-11-08 12:11] LABS: ABG BASE EXCESS 16.1 (-2.0-2.0); ABG HCO3 41.4 MEQ/L (22.0-26.0); ABG O2 SATURATION 97.6 % (95.0-99.0); ABG PARTIAL PRESSURE CO2 49.4 mmHg (35.0-45.0); ABG PARTIAL PRESSURE O2 84.3 mmHg (75.0-100.0); ABG STANDARD HCO3 40.3 MEQ/L (22.0-26.0); ABG TOTAL CO2 42.9 MEQ/L (23.0-31.0); ABG pH (ARTERIAL) 7.541 UNITS (7.350-7.450)
[2017-11-08] MEDS ORDERED: DOPamine 400 MG/500 ML BAG IN D5W (800MCG/ML) (J1265) As Ordered (12:57)
[2017-11-08] MEDS: DOPamine HCL 400 MG in APPROPRIATE DILUENT 1 EA IV ×2 (13:23→22:41)
[2017-11-08 16:28] LABS: CK-MB VALUE MASS 3.2 NG/ML (<3.6); CPK CREATINE PHOSPHOKINASE 42 U/L (39-308); MB/CK RELATIVE INDEX 7.61 (< OR =4); TROPONIN I 0.35 NG/ML (< 0.10)
[2017-11-08 17:48] LABS: ABG BASE EXCESS 8.6 (-2.0-2.0); ABG HCO3 35.7 MEQ/L (22.0-26.0); ABG O2 SATURATION 95.2 % (95.0-99.0); ABG PARTIAL PRESSURE CO2 55.8 mmHg (35.0-45.0); ABG PARTIAL PRESSURE O2 71.6 mmHg (75.0-100.0); ABG STANDARD HCO3 32.4 MEQ/L (22.0-26.0); ABG TOTAL CO2 37.4 MEQ/L (23.0-31.0); ABG pH (ARTERIAL) 7.424 UNITS (7.350-7.450)
[2017-11-08] MEDS ORDERED: SODIUM CHLORIDE 0.9% 1000 ML IV (19:00)
[2017-11-08 19:31] LABS: BLOOD UREA NITROGEN 85 MG/DL (7-18); CREATININE FOR GFR 1.18 MG/DL (0.70-1.30); GLUCOSE, FASTING 128 MG/DL (70-100)
[2017-11-08 19:32] LABS: ANION GAP 4 MEQ/L (8-16); CALCIUM LEVEL 9.1 MG/DL (8.8-10.2); CARBON DIOXIDE LEVEL 45 MEQ/L (21-32); CHLORIDE LEVEL 89 MEQ/L (98-107); GLOMERULAR FILTRATION RATE > 60.0 (>42); POTASSIUM SERUM 4.1 MEQ/L (3.5-5.1); SODIUM LEVEL 138 MEQ/L (136-145)
[2017-11-08] MEDS: NS 250 ML IV ×2 (20:15→22:13)
[2017-11-09] MEDS: MIDAZOLAM INJ 2 MG/2 ML VIAL (J2250) IV ×10 (00:13→20:32)
[2017-11-09 00:31] LABS: CPK CREATINE PHOSPHOKINASE 81 U/L (39-308); TROPONIN I 0.57 NG/ML (< 0.10)
[2017-11-09 00:34] LABS: CK-MB VALUE MASS 4.3 NG/ML (<3.6)
[2017-11-09 01:03] LABS: VENOUS BASE EXCESS 7.6 (-2.0-2.0); VENOUS HCO3 35.1 MEQ/L (23.0-27.0); VENOUS O2 SATURATION 86.4 % (60.0-80.0); VENOUS PARTIAL PRESSURE CO2 58.5 mmHg (38.0-50.0); VENOUS PARTIAL PRESSURE O2 52.6 mmHg (30.0-50.0); VENOUS PH 7.396 UNITS (7.330-7.430); VENOUS TOTAL CO2 36.9 MEQ/L (24.0-28.0)
[2017-11-09] MEDS: NS 250 ML IV (01:45)
[2017-11-09] MEDS: IPRATROPIUM 0.5MG/ALBUTEROL 2.5MG INH SOL UD 3ML (DUONEB)(J7620) NEB ×5 (03:15→19:44)
[2017-11-09 04:29] LABS: HEMOGLOBIN 17.6 g/dl (13.5-17.5); MEAN CORPUSCULAR HEMOGLOBIN 31.2 pg (27.0-33.0); MEAN CORPUSCULAR VOLUME 97.5 fl (80.0-96.0); RED BLOOD COUNT 5.64 10^6/uL (4.30-6.10); RED CELL DISTRIBUTION WIDTH 15.1 % (11.5-14.5); WHITE BLOOD COUNT 5.8 10^3/uL (4.0-10.0)
[2017-11-09 04:57] LABS: ANION GAP 7 MEQ/L (8-16); BLOOD UREA NITROGEN 78 MG/DL (7-18); CALCIUM LEVEL 8.3 MG/DL (8.8-10.2); CARBON DIOXIDE LEVEL 40 MEQ/L (21-32); CHLORIDE LEVEL 92 MEQ/L (98-107); CREATININE FOR GFR 1.16 MG/DL (0.70-1.30); GLOMERULAR FILTRATION RATE > 60.0 (>42); GLUCOSE, FASTING 135 MG/DL (70-100); MAGNESIUM LEVEL 2.2 MG/DL (1.8-2.4); POTASSIUM SERUM 3.8 MEQ/L (3.5-5.1); SODIUM LEVEL 139 MEQ/L (136-145)
[2017-11-09 05:07] LABS: PLATELET COUNT, AUTOMATED 91 10^3/uL (150-450)
[2017-11-09 05:08] LABS: IMMATURE PLATELET FRACTION % 10.4 % (0.0-10.9)
[2017-11-09] MEDS: HEPARIN SOD (PORCINE) 5000 UNITS/ML VIAL SQ ×3 (05:15→21:05)
[2017-11-09] MEDS: DOPamine HCL 400 MG in APPROPRIATE DILUENT 1 EA IV ×2 (06:26→13:44)
[2017-11-09 07:56] LABS: ABG BASE EXCESS 10.3 (-2.0-2.0); ABG HCO3 37.2 MEQ/L (22.0-26.0); ABG O2 SATURATION 94.1 % (95.0-99.0); ABG PARTIAL PRESSURE CO2 55.7 mmHg (35.0-45.0); ABG PARTIAL PRESSURE O2 68.3 mmHg (75.0-100.0); ABG TOTAL CO2 38.9 MEQ/L (23.0-31.0); ABG pH (ARTERIAL) 7.442 UNITS (7.350-7.450)
[2017-11-09] MEDS ORDERED: ASPIRIN ENTERIC 325 MG TAB GT (09:00)
[2017-11-09] MEDS: CHLORHEXIDINE ORAL RINSE 0.12%/15ML 120ML BOTTLE MT ×2 (09:06→20:15)
[2017-11-09] MEDS: MULTIVITAMINS/MINERALS THERAP 1 TAB PO (09:06)
[2017-11-09] MEDS: PANTOPRAZOLE 40MG INJ (PROTONIX) (C9113) IV (09:08)
[2017-11-09] MEDS: VITAMIN D 1,000 INTERNATIONAL UNITS TABLET PO (09:08)
[2017-11-09 09:56] LABS: C REACTIVE PROTEIN QUANTITATIV < 0.30 MG/DL (0.00-0.30)
[2017-11-09] MEDS: ASPIRIN 325 MG TAB GT (10:11)
[2017-11-09] MEDS: MEROPENEM INJ 1 GM in APPROPRIATE DILUENT 1 EA IV ×2 (10:12→18:01)
[2017-11-09] MEDS: VANCOMYCIN HCL 1,000 MG, VIAL MATE ADAPTER 1 EACH in D5W 250 ML IV ×2 (11:23→22:40)
[2017-11-09] MEDS: MIDAZOLAM HCL 100 MG in D5W 80 ML IV (13:38)
[2017-11-09] MEDS ORDERED: SLF 3 ML SYR IV (17:00)
[2017-11-09] MEDS: MORPHINE 4 MG/ML 1ML VIAL/SYRINGE (J2270) IV ×2 (18:35→21:27)
[2017-11-09] MEDS: PRAVASTATIN 10 MG TAB PO (20:15)
[2017-11-09] MEDS: SLF 3 ML SYR IV (21:06)
[2017-11-09] MEDS: SODIUM CHLORIDE 0.9% INJ 10 ML SYR IV (21:06)
[2017-11-10] MEDS: IPRATROPIUM 0.5MG/ALBUTEROL 2.5MG INH SOL UD 3ML (DUONEB)(J7620) NEB ×7 (00:14→23:59)
[2017-11-10] MEDS: MEROPENEM INJ 1 GM in APPROPRIATE DILUENT 1 EA IV ×3 (01:10→17:47)
[2017-11-10] MEDS: DOPamine HCL 400 MG in APPROPRIATE DILUENT 1 EA IV ×2 (01:58→15:13)
[2017-11-10 02:18] LABS: KETONE, URINE AUTO RFX NEGATIVE (NEGATIVE); LEUKOCYTE ESTERASE UR AUTO RFX NEGATIVE (NEGATIVE); MUCUS, URINE RFX SMALL (NEGATIVE); NITRITE, URINE AUTO RFX NEGATIVE (NEGATIVE); RBC, URINE AUTO RFX 27 /HPF (0-3); SPECIFIC GRAVITY UR AUTO RFX 1.014 (1.002-1.035); SQUAM EPITHELIAL CELL UR AURFX 0 /HPF (0-6); WBC, URINE AUTO RFX 9 /HPF (0-3)
[2017-11-10] MEDS: MIDAZOLAM INJ 2 MG/2 ML VIAL (J2250) IV ×6 (03:13→20:45)
[2017-11-10 03:14] LABS: ABG BASE EXCESS 12.2 (-2.0-2.0); ABG HCO3 40.7 MEQ/L (22.0-26.0); ABG O2 SATURATION 90.3 % (95.0-99.0); ABG PARTIAL PRESSURE O2 57.7 mmHg (75.0-100.0); ABG STANDARD HCO3 35.9 MEQ/L (22.0-26.0); ABG TOTAL CO2 42.7 MEQ/L (23.0-31.0); ABG pH (ARTERIAL) 7.404 UNITS (7.350-7.450)
[2017-11-10 03:15] LABS: ABG PARTIAL PRESSURE CO2 66.6 mmHg (35.0-45.0)
[2017-11-10 05:05] LABS: HEMATOCRIT 51.6 % (42.0-52.0); HEMOGLOBIN 16.3 g/dl (13.5-17.5); MEAN CORPUSCULAR HEMOGLOBIN 31.1 pg (27.0-33.0); MEAN CORPUSCULAR HGB CONC 31.6 g/dl (32.0-36.5); MEAN CORPUSCULAR VOLUME 98.5 fl (80.0-96.0); RED BLOOD COUNT 5.24 10^6/uL (4.30-6.10); RED CELL DISTRIBUTION WIDTH 15.3 % (11.5-14.5); WHITE BLOOD COUNT 7.8 10^3/uL (4.0-10.0)
[2017-11-10] MEDS: SODIUM CHLORIDE 0.9% INJ 10 ML SYR IV ×3 (05:11→20:53)
[2017-11-10] MEDS: SLF 3 ML SYR IV ×3 (05:11→20:53)
[2017-11-10] MEDS: HEPARIN SOD (PORCINE) 5000 UNITS/ML VIAL SQ ×3 (05:11→20:52)
[2017-11-10 05:18] LABS: PLATELET COUNT, AUTOMATED 93 10^3/uL (150-450)
[2017-11-10 05:19] LABS: IMMATURE PLATELET FRACTION % 10.5 % (0.0-10.9)
[2017-11-10 05:27] LABS: ANION GAP 5 MEQ/L (8-16); BLOOD UREA NITROGEN 52 MG/DL (7-18); CALCIUM LEVEL 7.9 MG/DL (8.8-10.2); CARBON DIOXIDE LEVEL 43 MEQ/L (21-32); CHLORIDE LEVEL 90 MEQ/L (98-107); CREATININE FOR GFR 0.71 MG/DL (0.70-1.30); GLOMERULAR FILTRATION RATE > 60.0 (>42); GLUCOSE, FASTING 169 MG/DL (70-100); POTASSIUM SERUM 3.6 MEQ/L (3.5-5.1); SODIUM LEVEL 138 MEQ/L (136-145)
[2017-11-10] MEDS: MORPHINE 4 MG/ML 1ML VIAL/SYRINGE (J2270) IV (05:49)
[2017-11-10] MEDS: ASPIRIN 81 MG CHEW TABLET GT (08:57)
[2017-11-10] MEDS: CHLORHEXIDINE ORAL RINSE 0.12%/15ML 120ML BOTTLE MT ×2 (08:57→20:37)
[2017-11-10] MEDS: MULTIVITAMINS/MINERALS THERAP 1 TAB PO (08:58)
[2017-11-10] MEDS: VITAMIN D 1,000 INTERNATIONAL UNITS TABLET PO (08:58)
[2017-11-10] MEDS: PANTOPRAZOLE 40MG INJ (PROTONIX) (C9113) IV (08:59)
[2017-11-10] MEDS: VANCOMYCIN HCL 1,000 MG, VIAL MATE ADAPTER 1 EACH in D5W 250 ML IV ×2 (11:31→23:33)
[2017-11-10] MEDS: FUROSEMIDE 20 MG/2 ML VIAL (J1940) IV ×2 (12:19→17:47)
[2017-11-10] MEDS: MIDAZOLAM HCL 100 MG in D5W 80 ML IV (14:56)
[2017-11-10] MEDS: BISACODYL 10 MG SUPP PR (17:47)
[2017-11-10] MEDS: METOCLOPRAMIDE INJ 10MG/2ML VIAL (J2765) IV ×2 (17:47→20:37)
[2017-11-10] MEDS: PRAVASTATIN 10 MG TAB PO (20:37)
[2017-11-11] MEDS: FUROSEMIDE 20 MG/2 ML VIAL (J1940) IV ×4 (00:55→17:26)
[2017-11-11] MEDS: MEROPENEM INJ 1 GM in APPROPRIATE DILUENT 1 EA IV ×2 (01:55→10:21)
[2017-11-11] MEDS: IPRATROPIUM 0.5MG/ALBUTEROL 2.5MG INH SOL UD 3ML (DUONEB)(J7620) NEB ×6 (04:31→23:56)
[2017-11-11 04:49] LABS: HEMATOCRIT 48.3 % (42.0-52.0); HEMOGLOBIN 15.6 g/dl (13.5-17.5); MEAN CORPUSCULAR HEMOGLOBIN 31.8 pg (27.0-33.0); MEAN CORPUSCULAR HGB CONC 32.3 g/dl (32.0-36.5); MEAN CORPUSCULAR VOLUME 98.4 fl (80.0-96.0); RED BLOOD COUNT 4.91 10^6/uL (4.30-6.10); RED CELL DISTRIBUTION WIDTH 15.3 % (11.5-14.5); WHITE BLOOD COUNT 7.8 10^3/uL (4.0-10.0)
[2017-11-11 04:52] LABS: PLATELET COUNT, AUTOMATED 84 10^3/uL (150-450)
[2017-11-11 05:07] LABS: BLOOD UREA NITROGEN 37 MG/DL (7-18); CALCIUM LEVEL 7.3 MG/DL (8.8-10.2); CHLORIDE LEVEL 89 MEQ/L (98-107); CREATININE FOR GFR 0.47 MG/DL (0.70-1.30); GLOMERULAR FILTRATION RATE > 60.0 (>42); GLUCOSE, FASTING 107 MG/DL (70-100); MAGNESIUM LEVEL 1.8 MG/DL (1.8-2.4); POTASSIUM SERUM 3.8 MEQ/L (3.5-5.1); SODIUM LEVEL 136 MEQ/L (136-145)
[2017-11-11 05:22] LABS: ANION GAP 0 MEQ/L (8-16); CARBON DIOXIDE LEVEL 47 MEQ/L (21-32)
[2017-11-11] MEDS: MIDAZOLAM INJ 2 MG/2 ML VIAL (J2250) IV ×3 (06:03→20:52)
[2017-11-11] MEDS: HEPARIN SOD (PORCINE) 5000 UNITS/ML VIAL SQ ×3 (06:03→21:06)
[2017-11-11] MEDS: SODIUM CHLORIDE 0.9% INJ 10 ML SYR IV ×3 (06:04→21:06)
[2017-11-11] MEDS: SLF 3 ML SYR IV ×3 (06:04→21:07)
[2017-11-11] MEDS: PANTOPRAZOLE 40MG INJ (PROTONIX) (C9113) IV (09:20)
[2017-11-11] MEDS: ASPIRIN 81 MG CHEW TABLET GT (09:21)
[2017-11-11] MEDS: VITAMIN D 1,000 INTERNATIONAL UNITS TABLET PO (09:21)
[2017-11-11] MEDS: MULTIVITAMINS/MINERALS THERAP 1 TAB PO (09:21)
[2017-11-11] MEDS: METOCLOPRAMIDE INJ 10MG/2ML VIAL (J2765) IV ×3 (09:21→20:52)
[2017-11-11] MEDS: CHLORHEXIDINE ORAL RINSE 0.12%/15ML 120ML BOTTLE MT ×2 (09:22→20:55)
[2017-11-11] MEDS: DOPamine HCL 400 MG in APPROPRIATE DILUENT 1 EA IV (09:43)
[2017-11-11 11:00] LABS: VANCOMYCIN LEVEL TROUGH 23.5 UG/ML (10.0-20.0)
[2017-11-11] MEDS: MORPHINE 4 MG/ML 1ML VIAL/SYRINGE (J2270) IV (15:14)
[2017-11-11] MEDS: MIDAZOLAM HCL 100 MG in D5W 80 ML IV (15:15)
[2017-11-11] MEDS: PRAVASTATIN 10 MG TAB PO (20:52)
[2017-11-12] MEDS: FUROSEMIDE 20 MG/2 ML VIAL (J1940) IV ×7 (00:33→18:00)
[2017-11-12] MEDS: MIDAZOLAM INJ 2 MG/2 ML VIAL (J2250) IV ×4 (00:53→20:36)
[2017-11-12] MEDS: IPRATROPIUM 0.5MG/ALBUTEROL 2.5MG INH SOL UD 3ML (DUONEB)(J7620) NEB ×5 (04:41→19:29)
[2017-11-12 04:54] LABS: HEMATOCRIT 46.6 % (42.0-52.0); MEAN CORPUSCULAR HEMOGLOBIN 31.4 pg (27.0-33.0); MEAN CORPUSCULAR HGB CONC 32.2 g/dl (32.0-36.5); MEAN CORPUSCULAR VOLUME 97.7 fl (80.0-96.0); RED BLOOD COUNT 4.77 10^6/uL (4.30-6.10); RED CELL DISTRIBUTION WIDTH 15.4 % (11.5-14.5); WHITE BLOOD COUNT 7.4 10^3/uL (4.0-10.0)
[2017-11-12 04:57] LABS: PLATELET COUNT, AUTOMATED 80 10^3/uL (150-450)
[2017-11-12 04:58] LABS: IMMATURE PLATELET FRACTION % 11.9 % (0.0-10.9)
[2017-11-12 05:16] LABS: BLOOD UREA NITROGEN 29 MG/DL (7-18); CALCIUM LEVEL 7.5 MG/DL (8.8-10.2); CHLORIDE LEVEL 87 MEQ/L (98-107); CREATININE FOR GFR 0.45 MG/DL (0.70-1.30); GLOMERULAR FILTRATION RATE > 60.0 (>42); GLUCOSE, FASTING 151 MG/DL (70-100); MAGNESIUM LEVEL 1.7 MG/DL (1.8-2.4); POTASSIUM SERUM 3.5 MEQ/L (3.5-5.1); SODIUM LEVEL 137 MEQ/L (136-145)
[2017-11-12 05:29] LABS: ANION GAP 2 MEQ/L (8-16); CARBON DIOXIDE LEVEL 48 MEQ/L (21-32)
[2017-11-12] MEDS: HEPARIN SOD (PORCINE) 5000 UNITS/ML VIAL SQ (05:50)
[2017-11-12] MEDS: SLF 3 ML SYR IV ×3 (05:51→20:31)
[2017-11-12] MEDS: SODIUM CHLORIDE 0.9% INJ 10 ML SYR IV ×3 (05:51→22:00)
[2017-11-12] MEDS: DOPamine HCL 400 MG in APPROPRIATE DILUENT 1 EA IV (08:03)
[2017-11-12] MEDS: ASPIRIN 81 MG CHEW TABLET GT (10:08)
[2017-11-12] MEDS: CHLORHEXIDINE ORAL RINSE 0.12%/15ML 120ML BOTTLE MT ×2 (10:08→20:31)
[2017-11-12] MEDS: VITAMIN D 1,000 INTERNATIONAL UNITS TABLET PO (10:08)
[2017-11-12] MEDS: MULTIVITAMINS/MINERALS THERAP 1 TAB PO (10:08)
[2017-11-12] MEDS: METOCLOPRAMIDE INJ 10MG/2ML VIAL (J2765) IV ×3 (10:08→20:29)
[2017-11-12] MEDS: PANTOPRAZOLE 40MG INJ (PROTONIX) (C9113) IV (10:08)
[2017-11-12] MEDS: MORPHINE 4 MG/ML 1ML VIAL/SYRINGE (J2270) IV ×2 (10:32→16:17)
[2017-11-12] MEDS: MIDAZOLAM HCL 100 MG in D5W 80 ML IV (15:54)
[2017-11-12] MEDS: PRAVASTATIN 10 MG TAB PO (20:28)
[2017-11-12 21:50] LABS: BLOOD UREA NITROGEN 24 MG/DL (7-18); CALCIUM LEVEL 7.7 MG/DL (8.8-10.2); CHLORIDE LEVEL 87 MEQ/L (98-107); CREATININE FOR GFR 0.46 MG/DL (0.70-1.30); GLOMERULAR FILTRATION RATE > 60.0 (>42); GLUCOSE, FASTING 148 MG/DL (70-100); MAGNESIUM LEVEL 1.8 MG/DL (1.8-2.4); POTASSIUM SERUM 3.4 MEQ/L (3.5-5.1); SODIUM LEVEL 135 MEQ/L (136-145)
[2017-11-12 22:01] LABS: ANION GAP 4 MEQ/L (8-16); CARBON DIOXIDE LEVEL 44 MEQ/L (21-32)
[2017-11-13] MEDS: FUROSEMIDE 40 MG/4 ML VIAL (J1940) IV ×5 (00:05→23:31)
[2017-11-13] MEDS: POTASSIUM CHLORIDE 10% LIQ 20 MEQ/15 ML UDC PO (00:05)
[2017-11-13] MEDS: IPRATROPIUM 0.5MG/ALBUTEROL 2.5MG INH SOL UD 3ML (DUONEB)(J7620) NEB ×7 (00:33→23:55)
[2017-11-13 04:27] LABS: HEMATOCRIT 49.1 % (42.0-52.0); HEMOGLOBIN 15.9 g/dl (13.5-17.5); MEAN CORPUSCULAR HEMOGLOBIN 31.7 pg (27.0-33.0); MEAN CORPUSCULAR HGB CONC 32.4 g/dl (32.0-36.5); PLATELET COUNT, AUTOMATED 104 10^3/uL (150-450); RED BLOOD COUNT 5.01 10^6/uL (4.30-6.10); RED CELL DISTRIBUTION WIDTH 15.9 % (11.5-14.5); WHITE BLOOD COUNT 7.6 10^3/uL (4.0-10.0)
[2017-11-13 04:44] LABS: BLOOD UREA NITROGEN 23 MG/DL (7-18); CALCIUM LEVEL 7.8 MG/DL (8.8-10.2); CHLORIDE LEVEL 88 MEQ/L (98-107); CREATININE FOR GFR 0.41 MG/DL (0.70-1.30); GLOMERULAR FILTRATION RATE > 60.0 (>42); GLUCOSE, FASTING 132 MG/DL (70-100); MAGNESIUM LEVEL 1.7 MG/DL (1.8-2.4); POTASSIUM SERUM 4.2 MEQ/L (3.5-5.1); SODIUM LEVEL 136 MEQ/L (136-145)
[2017-11-13 04:59] LABS: ANION GAP 0 MEQ/L (8-16); CARBON DIOXIDE LEVEL 48 MEQ/L (21-32)
[2017-11-13] MEDS: SLF 3 ML SYR IV ×3 (05:53→20:44)
[2017-11-13] MEDS: SODIUM CHLORIDE 0.9% INJ 10 ML SYR IV ×3 (05:54→20:44)
[2017-11-13] MEDS: DOPamine HCL 400 MG in APPROPRIATE DILUENT 1 EA IV (06:02)
[2017-11-13] MEDS: VITAMIN D 1,000 INTERNATIONAL UNITS TABLET PO (07:39)
[2017-11-13] MEDS: ASPIRIN 81 MG CHEW TABLET GT (07:39)
[2017-11-13] MEDS: PANTOPRAZOLE 40MG INJ (PROTONIX) (C9113) IV (07:39)
[2017-11-13] MEDS: MULTIVITAMINS/MINERALS THERAP 1 TAB PO (07:40)
[2017-11-13] MEDS: METOCLOPRAMIDE INJ 10MG/2ML VIAL (J2765) IV ×3 (07:40→20:43)
[2017-11-13] MEDS: CHLORHEXIDINE ORAL RINSE 0.12%/15ML 120ML BOTTLE MT ×2 (07:40→20:43)
[2017-11-13] MEDS: MORPHINE 4 MG/ML 1ML VIAL/SYRINGE (J2270) IV ×2 (07:43→13:57)
[2017-11-13] MEDS: BISACODYL 10 MG SUPP PR (13:57)
[2017-11-13] MEDS: MIDAZOLAM HCL 100 MG in D5W 80 ML IV (16:02)
[2017-11-13] MEDS: MIDAZOLAM INJ 2 MG/2 ML VIAL (J2250) IV ×3 (16:15→19:30)
[2017-11-13] MEDS: PRAVASTATIN 10 MG TAB PO (20:43)
[2017-11-13 22:37] LABS: ANION GAP 5 MEQ/L (8-16); BLOOD UREA NITROGEN 23 MG/DL (7-18); CARBON DIOXIDE LEVEL 43 MEQ/L (21-32); CHLORIDE LEVEL 88 MEQ/L (98-107); CREATININE FOR GFR 0.48 MG/DL (0.70-1.30); GLOMERULAR FILTRATION RATE > 60.0 (>42); GLUCOSE, FASTING 146 MG/DL (70-100); POTASSIUM SERUM 3.8 MEQ/L (3.5-5.1); SODIUM LEVEL 136 MEQ/L (136-145)
[2017-11-14] MEDS: MIDAZOLAM INJ 2 MG/2 ML VIAL (J2250) IV ×5 (00:57→18:38)
[2017-11-14] MEDS: IPRATROPIUM 0.5MG/ALBUTEROL 2.5MG INH SOL UD 3ML (DUONEB)(J7620) NEB ×6 (04:24→23:44)
[2017-11-14 04:36] LABS: HEMATOCRIT 45.6 % (42.0-52.0); MEAN CORPUSCULAR HEMOGLOBIN 31.9 pg (27.0-33.0); MEAN CORPUSCULAR HGB CONC 32.9 g/dl (32.0-36.5); PLATELET COUNT, AUTOMATED 110 10^3/uL (150-450); RED CELL DISTRIBUTION WIDTH 15.8 % (11.5-14.5); WHITE BLOOD COUNT 6.3 10^3/uL (4.0-10.0)
[2017-11-14 04:52] LABS: ANION GAP 2 MEQ/L (8-16); BLOOD UREA NITROGEN 24 MG/DL (7-18); CALCIUM LEVEL 7.6 MG/DL (8.8-10.2); CARBON DIOXIDE LEVEL 43 MEQ/L (21-32); CHLORIDE LEVEL 88 MEQ/L (98-107); CREATININE FOR GFR 0.48 MG/DL (0.70-1.30); GLOMERULAR FILTRATION RATE > 60.0 (>42); GLUCOSE, FASTING 138 MG/DL (70-100); MAGNESIUM LEVEL 1.6 MG/DL (1.8-2.4); POTASSIUM SERUM 3.6 MEQ/L (3.5-5.1); SODIUM LEVEL 133 MEQ/L (136-145)
[2017-11-14] MEDS: FUROSEMIDE 40 MG/4 ML VIAL (J1940) IV ×3 (05:05→17:55)
[2017-11-14] MEDS: SODIUM CHLORIDE 0.9% INJ 10 ML SYR IV ×3 (05:05→22:28)
[2017-11-14] MEDS: SLF 3 ML SYR IV ×3 (05:05→22:27)
[2017-11-14] MEDS ORDERED: ACETAMINOPHEN 325 MG/10.15 ML UDC As Ordered (05:29)
[2017-11-14] MEDS: ACETAMINOPHEN 325 MG/10.15 ML UDC GT ×2 (05:30→12:32)
[2017-11-14 06:44] LABS: KETONE, URINE AUTO RFX NEGATIVE (NEGATIVE); LEUKOCYTE ESTERASE UR AUTO RFX NEGATIVE (NEGATIVE); MUCUS, URINE RFX SMALL (NEGATIVE); NITRITE, URINE AUTO RFX NEGATIVE (NEGATIVE); RBC, URINE AUTO RFX 42 /HPF (0-3); SPECIFIC GRAVITY UR AUTO RFX 1.005 (1.002-1.035); SQUAM EPITHELIAL CELL UR AURFX 0 /HPF (0-6); WBC, URINE AUTO RFX 3 /HPF (0-3)
[2017-11-14] MEDS: PANTOPRAZOLE 40MG INJ (PROTONIX) (C9113) IV (08:32)
[2017-11-14] MEDS: MULTIVITAMINS/MINERALS THERAP 1 TAB PO (08:33)
[2017-11-14] MEDS: VITAMIN D 1,000 INTERNATIONAL UNITS TABLET PO (08:33)
[2017-11-14] MEDS: METOCLOPRAMIDE INJ 10MG/2ML VIAL (J2765) IV ×3 (08:33→20:11)
[2017-11-14] MEDS: ASPIRIN 81 MG CHEW TABLET GT (08:33)
[2017-11-14] MEDS: CHLORHEXIDINE ORAL RINSE 0.12%/15ML 120ML BOTTLE MT ×2 (08:34→20:11)
[2017-11-14] MEDS: MAG SULF 1GM/100ML (MAG RUN) 1 GM in APPROPRIATE DILUENT 1 EA IV ×3 (11:40→12:45)
[2017-11-14] MEDS: BISACODYL 10 MG SUPP PR (11:59)
[2017-11-14] MEDS: MEROPENEM INJ 1 GM in APPROPRIATE DILUENT 1 EA IV ×2 (14:18→22:27)
[2017-11-14] MEDS ORDERED: REFRIGERATOR IV KEYS XX (17:45)
[2017-11-14] MEDS: MORPHINE 4 MG/ML 1ML VIAL/SYRINGE (J2270) IV (17:56)
[2017-11-14] MEDS: MIDAZOLAM HCL 50 MG in D5W 40 ML IV (18:49)
[2017-11-14] MEDS: PRAVASTATIN 10 MG TAB PO (20:11)
[2017-11-15 00:12] LABS: HEPARIN INDUCED PLATELET ABY 0.116 OD (0.000-0.400)
[2017-11-15] MEDS: FUROSEMIDE 40 MG/4 ML VIAL (J1940) IV ×5 (00:22→23:57)
[2017-11-15] MEDS: IPRATROPIUM 0.5MG/ALBUTEROL 2.5MG INH SOL UD 3ML (DUONEB)(J7620) NEB ×6 (03:45→23:49)
[2017-11-15 04:16] LABS: HEMATOCRIT 43.2 % (42.0-52.0); MEAN CORPUSCULAR HEMOGLOBIN 31.5 pg (27.0-33.0); MEAN CORPUSCULAR HGB CONC 32.4 g/dl (32.0-36.5); MEAN CORPUSCULAR VOLUME 97.1 fl (80.0-96.0); PLATELET COUNT, AUTOMATED 113 10^3/uL (150-450); RED BLOOD COUNT 4.45 10^6/uL (4.30-6.10); RED CELL DISTRIBUTION WIDTH 15.9 % (11.5-14.5); WHITE BLOOD COUNT 7.2 10^3/uL (4.0-10.0)
[2017-11-15 04:36] LABS: ANION GAP 6 MEQ/L (8-16); BLOOD UREA NITROGEN 29 MG/DL (7-18); CALCIUM LEVEL 7.7 MG/DL (8.8-10.2); CARBON DIOXIDE LEVEL 42 MEQ/L (21-32); CHLORIDE LEVEL 88 MEQ/L (98-107); CREATININE FOR GFR 0.56 MG/DL (0.70-1.30); GLOMERULAR FILTRATION RATE > 60.0 (>42); GLUCOSE, FASTING 126 MG/DL (70-100); MAGNESIUM LEVEL 2.2 MG/DL (1.8-2.4); POTASSIUM SERUM 3.4 MEQ/L (3.5-5.1); SODIUM LEVEL 136 MEQ/L (136-145)
[2017-11-15] MEDS: MEROPENEM INJ 1 GM in APPROPRIATE DILUENT 1 EA IV (05:55)
[2017-11-15] MEDS: SODIUM CHLORIDE 0.9% INJ 10 ML SYR IV ×4 (05:56→22:00)
[2017-11-15 06:15] LABS: ABG BASE EXCESS 13.2 (-2.0-2.0); ABG HCO3 38.2 MEQ/L (22.0-26.0); ABG O2 SATURATION 97.7 % (95.0-99.0); ABG PARTIAL PRESSURE CO2 48.8 mmHg (35.0-45.0); ABG PARTIAL PRESSURE O2 87.8 mmHg (75.0-100.0); ABG STANDARD HCO3 37.1 MEQ/L (22.0-26.0); ABG TOTAL CO2 39.7 MEQ/L (23.0-31.0); ABG pH (ARTERIAL) 7.512 UNITS (7.350-7.450)
[2017-11-15 09:23] LABS: ALBUMIN 2.5 GM/DL (3.2-5.2); ALBUMIN/GLOBULIN RATIO 0.96 (1.00-1.93); ALKALINE PHOSPHATASE 109 U/L (45-117); ALT/SGPT 50 U/L (12-78); AST/SGOT 59 U/L (7-37); BILIRUBIN,DIRECT 0.3 MG/DL (0.0-0.2); BILIRUBIN,TOTAL 0.9 MG/DL (0.2-1.0); TOTAL PROTEIN 5.1 GM/DL (6.4-8.2)
[2017-11-15] MEDS: PANTOPRAZOLE 40MG INJ (PROTONIX) (C9113) IV (09:52)
[2017-11-15] MEDS: METOCLOPRAMIDE INJ 10MG/2ML VIAL (J2765) IV ×3 (09:52→20:11)
[2017-11-15] MEDS: ASPIRIN 81 MG CHEW TABLET GT (09:53)
[2017-11-15] MEDS: ACETAMINOPHEN 325 MG/10.15 ML UDC GT (09:53)
[2017-11-15] MEDS: MULTIVITAMINS/MINERALS THERAP 1 TAB PO (09:54)
[2017-11-15] MEDS: VITAMIN D 1,000 INTERNATIONAL UNITS TABLET PO (09:54)
[2017-11-15] MEDS: BISACODYL 10 MG SUPP PR (09:54)
[2017-11-15] MEDS: CHLORHEXIDINE ORAL RINSE 0.12%/15ML 120ML BOTTLE MT (09:55)
[2017-11-15] MEDS: KCL 10MEQ/100ML SWI (KRUN) 10 MEQ in APPROPRIATE DILUENT 1 EA IV (10:05)
[2017-11-15] MEDS: TRIAMCINOLONE ACET 0.1% CREAM 15 GM TOP ×3 (11:40→20:10)
[2017-11-15] MEDS: MAG SULF 1GM/100ML (MAG RUN) 1 GM in APPROPRIATE DILUENT 1 EA IV (11:40)
[2017-11-15] MEDS ORDERED: MIDAZOLAM HCL 100 MG in D5W 80 ML IV (18:00)
[2017-11-15] MEDS: LIDOCAINE 2% JELLY 30 ML TOP (20:11)
[2017-11-16] MEDS: IPRATROPIUM 0.5MG/ALBUTEROL 2.5MG INH SOL UD 3ML (DUONEB)(J7620) NEB ×5 (04:32→19:32)
[2017-11-16 04:40] LABS: BASO # 0.1 10^3/uL (0.0-0.2); BASO % 0.8 % (0.0-1.0); EOS # 0.3 10^3/uL (0.0-0.50); EOS % 4.7 % (0.0-3.0); HEMATOCRIT 41.7 % (42.0-52.0); HEMOGLOBIN 13.6 g/dl (13.5-17.5); IMMATURE GRANULOCYTE % 1.1 % (0-3.0); LYMPH # 0.7 10^3/uL (1.5-4.5); MEAN CORPUSCULAR HEMOGLOBIN 31.9 pg (27.0-33.0); MEAN CORPUSCULAR HGB CONC 32.6 g/dl (32.0-36.5); MEAN CORPUSCULAR VOLUME 97.9 fl (80.0-96.0); MONO # 0.6 10^3/uL (0.0-0.8); MONO % 9.3 % (0.0-5.0); NEUTROPHILS # 4.7 10^3/uL (1.8-7.7); NEUTROPHILS % 73.1 % (36.0-66.0); PLATELET COUNT, AUTOMATED 134 10^3/uL (150-450); RED BLOOD COUNT 4.26 10^6/uL (4.30-6.10); RED CELL DISTRIBUTION WIDTH 15.9 % (11.5-14.5); WHITE BLOOD COUNT 6.4 10^3/uL (4.0-10.0)
[2017-11-16 05:03] LABS: ALBUMIN/GLOBULIN RATIO 0.94 (1.00-1.93); ALKALINE PHOSPHATASE 96 U/L (45-117); ALT/SGPT 51 U/L (12-78); ANION GAP 6 MEQ/L (8-16); AST/SGOT 56 U/L (7-37); BILIRUBIN,TOTAL 1.3 MG/DL (0.2-1.0); BLOOD UREA NITROGEN 30 MG/DL (7-18); CALCIUM LEVEL 8.3 MG/DL (8.8-10.2); CARBON DIOXIDE LEVEL 42 MEQ/L (21-32); CHLORIDE LEVEL 90 MEQ/L (98-107); GLOMERULAR FILTRATION RATE > 60.0 (>42); GLUCOSE, FASTING 93 MG/DL (70-100); MAGNESIUM LEVEL 2.5 MG/DL (1.8-2.4); POTASSIUM SERUM 3.1 MEQ/L (3.5-5.1); SODIUM LEVEL 138 MEQ/L (136-145); TOTAL PROTEIN 6.2 GM/DL (6.4-8.2)
[2017-11-16] MEDS: SODIUM CHLORIDE 0.9% INJ 10 ML SYR IV ×3 (05:06→20:34)
[2017-11-16] MEDS: FUROSEMIDE 40 MG/4 ML VIAL (J1940) IV ×2 (05:06→11:32)
[2017-11-16 06:27] LABS: ABG BASE EXCESS 13.6 (-2.0-2.0); ABG HCO3 39.5 MEQ/L (22.0-26.0); ABG O2 SATURATION 97.5 % (95.0-99.0); ABG PARTIAL PRESSURE CO2 54.4 mmHg (35.0-45.0); ABG PARTIAL PRESSURE O2 93.8 mmHg (75.0-100.0); ABG STANDARD HCO3 37.5 MEQ/L (22.0-26.0); ABG TOTAL CO2 41.2 MEQ/L (23.0-31.0); ABG pH (ARTERIAL) 7.479 UNITS (7.350-7.450)
[2017-11-16] MEDS: POTASSIUM CHLORIDE 10 MEQ SR TABLET PO ×2 (08:30→09:27)
[2017-11-16] MEDS: ASPIRIN 81 MG CHEW TABLET GT (09:26)
[2017-11-16] MEDS: MULTIVITAMINS/MINERALS THERAP 1 TAB PO (09:26)
[2017-11-16] MEDS: VITAMIN D 1,000 INTERNATIONAL UNITS TABLET PO (09:27)
[2017-11-16] MEDS: PANTOPRAZOLE 40MG INJ (PROTONIX) (C9113) IV (09:30)
[2017-11-16] MEDS: METOCLOPRAMIDE INJ 10MG/2ML VIAL (J2765) IV ×3 (09:30→20:29)
[2017-11-16] MEDS: TRIAMCINOLONE ACET 0.1% CREAM 80 GM TOP ×3 (09:31→20:30)
[2017-11-16] MEDS: LIDOCAINE 2% JELLY 30 ML TOP ×2 (09:32→20:30)
[2017-11-16] MEDS: POTASSIUM CHLORIDE 10% LIQ 20 MEQ/15 ML UDC PO (12:32)
[2017-11-17] MEDS: IPRATROPIUM 0.5MG/ALBUTEROL 2.5MG INH SOL UD 3ML (DUONEB)(J7620) NEB ×7 (04:00→23:54)
[2017-11-17 04:47] LABS: BASO # 0.1 10^3/uL (0.0-0.2); EOS # 0.4 10^3/uL (0.0-0.50); EOS % 5.4 % (0.0-3.0); HEMATOCRIT 43.9 % (42.0-52.0); IMMATURE GRANULOCYTE % 1.2 % (0-3.0); LYMPH # 0.8 10^3/uL (1.5-4.5); LYMPH % 11.5 % (24.0-44.0); MEAN CORPUSCULAR HEMOGLOBIN 31.5 pg (27.0-33.0); MEAN CORPUSCULAR HGB CONC 31.9 g/dl (32.0-36.5); MEAN CORPUSCULAR VOLUME 98.9 fl (80.0-96.0); MONO # 0.7 10^3/uL (0.0-0.8); MONO % 9.5 % (0.0-5.0); NEUTROPHILS # 4.9 10^3/uL (1.8-7.7); NEUTROPHILS % 71.4 % (36.0-66.0); PLATELET COUNT, AUTOMATED 164 10^3/uL (150-450); RED BLOOD COUNT 4.44 10^6/uL (4.30-6.10); RED CELL DISTRIBUTION WIDTH 15.6 % (11.5-14.5); WHITE BLOOD COUNT 6.9 10^3/uL (4.0-10.0)
[2017-11-17 05:06] LABS: ALBUMIN/GLOBULIN RATIO 0.83 (1.00-1.93); ALKALINE PHOSPHATASE 94 U/L (45-117); ALT/SGPT 48 U/L (12-78); ANION GAP 7 MEQ/L (8-16); AST/SGOT 61 U/L (7-37); BILIRUBIN,TOTAL 1.3 MG/DL (0.2-1.0); BLOOD UREA NITROGEN 33 MG/DL (7-18); CALCIUM LEVEL 8.5 MG/DL (8.8-10.2); CARBON DIOXIDE LEVEL 40 MEQ/L (21-32); CHLORIDE LEVEL 91 MEQ/L (98-107); CREATININE FOR GFR 0.44 MG/DL (0.70-1.30); GLOMERULAR FILTRATION RATE > 60.0 (>42); GLUCOSE, FASTING 77 MG/DL (70-100); POTASSIUM SERUM 3.9 MEQ/L (3.5-5.1); SODIUM LEVEL 138 MEQ/L (136-145); TOTAL PROTEIN 6.6 GM/DL (6.4-8.2)
[2017-11-17] MEDS: SODIUM CHLORIDE 0.9% INJ 10 ML SYR IV ×2 (06:00→14:00)
[2017-11-17] MEDS: ASPIRIN 81 MG CHEW TABLET GT (09:54)
[2017-11-17] MEDS: VITAMIN D 1,000 INTERNATIONAL UNITS TABLET PO (09:55)
[2017-11-17] MEDS: LANSOPRAZOLE SUSPENSION 30 MG/10 ML ORAL SYRINGE (FIRST-LANSOPRAZOLE) PO (11:04)
[2017-11-17] MEDS: LIDOCAINE 2% JELLY 30 ML TOP ×2 (11:05→20:22)
[2017-11-17] MEDS: MULTIVITAMIN/MINERALS LIQUID 15ML ORAL SYRINGE PO (12:43)
[2017-11-17] MEDS: POTASSIUM CHLORIDE 10 MEQ SR TABLET PO ×2 (14:13→20:22)
[2017-11-17] MEDS: TORSEMIDE 10 MG TABLET PO (14:47)
[2017-11-18] MEDS: IPRATROPIUM 0.5MG/ALBUTEROL 2.5MG INH SOL UD 3ML (DUONEB)(J7620) NEB ×5 (04:13→20:00)
[2017-11-18 07:40] LABS: ANION GAP 5 MEQ/L (8-16); BLOOD UREA NITROGEN 32 MG/DL (7-18); CALCIUM LEVEL 8.3 MG/DL (8.8-10.2); CARBON DIOXIDE LEVEL 44 MEQ/L (21-32); CHLORIDE LEVEL 92 MEQ/L (98-107); CREATININE FOR GFR 0.54 MG/DL (0.70-1.30); GLOMERULAR FILTRATION RATE > 60.0 (>42); GLUCOSE, FASTING 86 MG/DL (70-100); PHOSPHORUS LEVEL 3.5 MG/DL (2.5-4.9); POTASSIUM SERUM 3.5 MEQ/L (3.5-5.1); SODIUM LEVEL 141 MEQ/L (136-145)
[2017-11-18] MEDS: LIDOCAINE 2% JELLY 30 ML TOP ×2 (09:00→22:11)
[2017-11-18] MEDS: ASPIRIN 81 MG CHEW TABLET GT (09:11)
[2017-11-18] MEDS: MULTIVITAMIN/MINERALS LIQUID 15ML ORAL SYRINGE PO (09:11)
[2017-11-18] MEDS: LANSOPRAZOLE SUSPENSION 30 MG/10 ML ORAL SYRINGE (FIRST-LANSOPRAZOLE) PO (09:11)
[2017-11-18] MEDS: VITAMIN D 1,000 INTERNATIONAL UNITS TABLET PO (09:11)
[2017-11-18] MEDS: POTASSIUM CHLORIDE 10 MEQ SR TABLET PO ×2 (09:12→22:12)
[2017-11-18] MEDS: TORSEMIDE 10 MG TABLET PO (09:12)
[2017-11-19] MEDS: IPRATROPIUM 0.5MG/ALBUTEROL 2.5MG INH SOL UD 3ML (DUONEB)(J7620) NEB ×6 (03:51→21:57)
[2017-11-19 07:29] LABS: ALBUMIN 3.1 GM/DL (3.2-5.2); ANION GAP 4 MEQ/L (8-16); BLOOD UREA NITROGEN 33 MG/DL (7-18); CALCIUM LEVEL 8.6 MG/DL (8.8-10.2); CARBON DIOXIDE LEVEL 45 MEQ/L (21-32); CHLORIDE LEVEL 93 MEQ/L (98-107); CREATININE FOR GFR 0.57 MG/DL (0.70-1.30); GLOMERULAR FILTRATION RATE > 60.0 (>42); GLUCOSE, FASTING 94 MG/DL (70-100); PHOSPHORUS LEVEL 3.4 MG/DL (2.5-4.9); SODIUM LEVEL 142 MEQ/L (136-145)
[2017-11-19] MEDS: LIDOCAINE 2% JELLY 30 ML TOP ×2 (09:00→21:00)
[2017-11-19] MEDS: ASPIRIN 81 MG CHEW TABLET GT (09:56)
[2017-11-19] MEDS: SPIRONOLACTONE 12.5MG PER 1/2 TABLET PO (09:56)
[2017-11-19] MEDS: MULTIVITAMIN/MINERALS LIQUID 15ML ORAL SYRINGE PO (09:57)
[2017-11-19] MEDS: TORSEMIDE 10 MG TABLET PO (09:57)
[2017-11-19] MEDS: POTASSIUM CHLORIDE 10 MEQ SR TABLET PO (09:57)
[2017-11-19] MEDS: VITAMIN D 1,000 INTERNATIONAL UNITS TABLET PO (09:57)
[2017-11-19] MEDS: LANSOPRAZOLE SUSPENSION 30 MG/10 ML ORAL SYRINGE (FIRST-LANSOPRAZOLE) PO (09:58)
[2017-11-19] MEDS: PRAVASTATIN 10 MG TAB PO (21:04)
[2017-11-20] MEDS: IPRATROPIUM 0.5MG/ALBUTEROL 2.5MG INH SOL UD 3ML (DUONEB)(J7620) NEB ×6 (01:00→20:00)
[2017-11-20 07:28] LABS: ALBUMIN 3.2 GM/DL (3.2-5.2); ANION GAP 4 MEQ/L (8-16); BLOOD UREA NITROGEN 31 MG/DL (7-18); CALCIUM LEVEL 8.5 MG/DL (8.8-10.2); CARBON DIOXIDE LEVEL 45 MEQ/L (21-32); CHLORIDE LEVEL 93 MEQ/L (98-107); CREATININE FOR GFR 0.53 MG/DL (0.70-1.30); GLOMERULAR FILTRATION RATE > 60.0 (>42); GLUCOSE, FASTING 102 MG/DL (70-100); PHOSPHORUS LEVEL 3.2 MG/DL (2.5-4.9); POTASSIUM SERUM 3.6 MEQ/L (3.5-5.1); SODIUM LEVEL 142 MEQ/L (136-145)
[2017-11-20] MEDS: LIDOCAINE 2% JELLY 30 ML TOP ×2 (07:49→21:33)
[2017-11-20] MEDS: MULTIVITAMIN/MINERALS LIQUID 15ML ORAL SYRINGE PO ×2 (09:00→09:22)
[2017-11-20] MEDS: LANSOPRAZOLE SUSPENSION 30 MG/10 ML ORAL SYRINGE (FIRST-LANSOPRAZOLE) PO ×2 (09:00→09:22)
[2017-11-20] MEDS: SPIRONOLACTONE 12.5MG PER 1/2 TABLET PO (09:22)
[2017-11-20] MEDS: ASPIRIN 81 MG CHEW TABLET GT (09:22)
[2017-11-20] MEDS: VITAMIN D 1,000 INTERNATIONAL UNITS TABLET PO (09:22)
[2017-11-20] MEDS: POTASSIUM CHLORIDE 10 MEQ SR TABLET PO (09:22)
[2017-11-20] MEDS: TORSEMIDE 10 MG TABLET PO (09:22)
[2017-11-20] MEDS: PANTOPRAZOLE 40MG TAB (PROTONIX) PO (10:04)
[2017-11-20] MEDS: MULTIVITAMINS/MINERALS THERAP 1 TAB PO (10:05)
[2017-11-20] MEDS: CARVedilol 3.125 MG TAB PO (21:40)
[2017-11-20] MEDS: PRAVASTATIN 10 MG TAB PO (21:42)
[2017-11-21] MEDS: IPRATROPIUM 0.5MG/ALBUTEROL 2.5MG INH SOL UD 3ML (DUONEB)(J7620) NEB ×6 (04:00→20:00)
[2017-11-21 07:05] LABS: MEAN CORPUSCULAR HEMOGLOBIN 32.3 pg (27.0-33.0); MEAN CORPUSCULAR HGB CONC 30.4 g/dl (32.0-36.5); PLATELET COUNT, AUTOMATED 237 10^3/uL (150-450); RED BLOOD COUNT 4.34 10^6/uL (4.30-6.10); WHITE BLOOD COUNT 4.6 10^3/uL (4.0-10.0)
[2017-11-21 07:31] LABS: BLOOD UREA NITROGEN 30 MG/DL (7-18); CALCIUM LEVEL 8.6 MG/DL (8.8-10.2); CHLORIDE LEVEL 96 MEQ/L (98-107); CREATININE FOR GFR 0.57 MG/DL (0.70-1.30); GLOMERULAR FILTRATION RATE > 60.0 (>42); GLUCOSE, FASTING 102 MG/DL (70-100); MAGNESIUM LEVEL 2.4 MG/DL (1.8-2.4); POTASSIUM SERUM 4.1 MEQ/L (3.5-5.1); SODIUM LEVEL 144 MEQ/L (136-145)
[2017-11-21 07:46] LABS: ANION GAP 0 MEQ/L (8-16); CARBON DIOXIDE LEVEL 48 MEQ/L (21-32)
[2017-11-21] MEDS: CARVedilol 3.125 MG TAB PO ×2 (09:00→19:56)
[2017-11-21] MEDS: LIDOCAINE 2% JELLY 30 ML TOP ×2 (09:00→19:57)
[2017-11-21] MEDS: TORSEMIDE 10 MG TABLET PO (09:58)
[2017-11-21] MEDS: PANTOPRAZOLE 40MG TAB (PROTONIX) PO (09:58)
[2017-11-21] MEDS: MULTIVITAMINS/MINERALS THERAP 1 TAB PO (09:58)
[2017-11-21] MEDS: VITAMIN D 1,000 INTERNATIONAL UNITS TABLET PO (09:59)
[2017-11-21] MEDS: ASPIRIN 81 MG CHEW TABLET GT (09:59)
[2017-11-21] MEDS: POTASSIUM CHLORIDE 10 MEQ SR TABLET PO (09:59)
[2017-11-21] MEDS: SPIRONOLACTONE 12.5MG PER 1/2 TABLET PO (12:35)
[2017-11-21] MEDS: PRAVASTATIN 10 MG TAB PO (20:02)
[2017-11-22] MEDS: IPRATROPIUM 0.5MG/ALBUTEROL 2.5MG INH SOL UD 3ML (DUONEB)(J7620) NEB ×4 (02:44→11:39)
[2017-11-22 06:44] LABS: HEMATOCRIT 45.5 % (42.0-52.0); HEMOGLOBIN 13.9 g/dl (13.5-17.5); MEAN CORPUSCULAR HEMOGLOBIN 31.9 pg (27.0-33.0); MEAN CORPUSCULAR HGB CONC 30.5 g/dl (32.0-36.5); MEAN CORPUSCULAR VOLUME 104.4 fl (80.0-96.0); PLATELET COUNT, AUTOMATED 258 10^3/uL (150-450); RED BLOOD COUNT 4.36 10^6/uL (4.30-6.10); WHITE BLOOD COUNT 4.3 10^3/uL (4.0-10.0)
[2017-11-22 06:58] LABS: ANION GAP 3 MEQ/L (8-16); BLOOD UREA NITROGEN 29 MG/DL (7-18); CALCIUM LEVEL 8.5 MG/DL (8.8-10.2); CARBON DIOXIDE LEVEL 44 MEQ/L (21-32); CHLORIDE LEVEL 95 MEQ/L (98-107); CREATININE FOR GFR 0.52 MG/DL (0.70-1.30); GLOMERULAR FILTRATION RATE > 60.0 (>42); GLUCOSE, FASTING 100 MG/DL (70-100); MAGNESIUM LEVEL 2.2 MG/DL (1.8-2.4); SODIUM LEVEL 142 MEQ/L (136-145)
[2017-11-22] MEDS: LIDOCAINE 2% JELLY 30 ML TOP (09:00)
[2017-11-22] MEDS: ASPIRIN 81 MG CHEW TABLET GT (10:40)
[2017-11-22] MEDS: VITAMIN D 1,000 INTERNATIONAL UNITS TABLET PO (10:40)
[2017-11-22] MEDS: MULTIVITAMINS/MINERALS THERAP 1 TAB PO (10:40)
[2017-11-22] MEDS: CARVedilol 3.125 MG TAB PO (10:41)
[2017-11-22] MEDS: PANTOPRAZOLE 40MG TAB (PROTONIX) PO (10:42)
[2017-11-22] MEDS: TORSEMIDE 10 MG TABLET PO (10:42)
== END 2017-11-22 13:25 | disposition home health service (06) | DRG 291 ==
LOC: M ED INP 23:08 → M MS5PR 11-17 12:53 → M PCU 11-08 02:00 → M MS4PR 11-19 22:44 → M ED 15:41 → M ICU 11-08 08:25
PROC: 5A1955Z Respiratory Ventilation, Greater than 96 Consecutive Hours (ICD-10-PCS; principal; 2017-11-08)
PROC: 0BH17EZ Insertion of Endotracheal Airway into Trachea, Via Natural or Artificial Opening (ICD-10-PCS; 2017-11-08)
PROC: 02HV33Z Insertion of Infusion Device into Superior Vena Cava, Percutaneous Approach (ICD-10-PCS; 2017-11-08)
DX: I50.43 Acute on chronic combined systolic (congestive) and diastolic (congestive) heart failure (principal); J96.22 Acute and chronic respiratory failure with hypercapnia; R57.0 Cardiogenic shock; I42.0 Dilated cardiomyopathy; Z66 Do not resuscitate; I25.10 Atherosclerotic heart disease of native coronary artery without angina pectoris; I45.10 Unspecified right bundle-branch block; I44.0 Atrioventricular block, first degree; E78.5 Hyperlipidemia, unspecified; M41.9 Scoliosis, unspecified; Z79.82 Long term (current) use of aspirin; Z79.899 Other long term (current) drug therapy; Z88.0 Allergy status to penicillin; Z91.040 Latex allergy status; Z85.46 Personal history of malignant neoplasm of prostate; I25.2 Old myocardial infarction; Z95.810 Presence of automatic (implantable) cardiac defibrillator; D69.6 Thrombocytopenia, unspecified

== ENCOUNTER → 2017-12-03 | Outpatient (REF) | payer MEDICARE, OTHER ==
[2017-12-03 18:56] LABS: BASOPHILS 2 % (0-4); EOSINOPHILS 12 % (0-5); LYMPHOCYTES 15 % (16-52); MONOCYTES 13 % (0-8); NEUTROPHILS 58 % (35-75)
[2017-12-03 18:57] LABS: MICROCYTOSIS 1+; PLATELET ESTIMATE NORMAL (NORMAL)
== END ==
LOC: M LAB REF 16:57
DX: D72.9 Disorder of white blood cells, unspecified (principal)
CPT/HCPCS: 85007

== ENCOUNTER → 2017-12-26 | Outpatient (CLI) | payer MEDICARE, OTHER ==
[2017-12-26 18:09] LABS: PROSTATIC SPECIFIC AG MONITOR 1.12 NG/ML (< 4.0)
== END ==
LOC: M SMT 13:55
DX: C61 Malignant neoplasm of prostate (principal)
CPT/HCPCS: 84153

== ENCOUNTER 2018-01-08 12:21 | Outpatient (RCR) | payer MEDICARE, OTHER | END 2018-02-02 | LOC: M CR 12:21 | DX: I50.9 Heart failure, unspecified (principal) | CPT/HCPCS: 93798 ==

== ENCOUNTER 2018-02-03 15:32 | Outpatient (RCR) | payer MEDICARE, OTHER | END 2018-03-05 | LOC: M CR 15:32 | DX: I50.9 Heart failure, unspecified (principal) | CPT/HCPCS: 93798 ==

== ENCOUNTER 2018-03-06 12:46 | Outpatient (RCR) | payer MEDICARE, OTHER | END 2018-04-04 | LOC: M CR 12:46 | DX: I50.9 Heart failure, unspecified (principal) | CPT/HCPCS: 93798 ==

== ENCOUNTER → 2018-04-18 | Outpatient (CLI) | payer MEDICARE, OTHER ==
[2018-04-18 17:52] LABS: CALCIUM LEVEL 9.3 MG/DL (8.8-10.2)
[2018-04-18 18:08] LABS: TOTAL 25(OH) VITAMIN D 65.4 NG/ML (30.0-100.0)
== END ==
LOC: M WUC 13:57
DX: M81.0 Age-related osteoporosis without current pathological fracture (principal)
CPT/HCPCS: 82310

== ENCOUNTER 2018-05-12 10:34 | Outpatient (RCR) | payer SELFPAY ==
[~2018-05-12 10:34] MED LIST changes: +ALDA25TA2 PO; -ANAP550T PO; +ASPI-222 PO; -ASPI325T28 PO; +CALC1TAB42 PO; +CARV3.12 PO; +CHIL81CH2 GT; +GABA-1171 PO; -GABA-279 PO; -GABA-282 PO; +GABA-843 PO; -LASI20TA PO; +LASI20TA3 PO; +LASI40TA9 PO; +METALAZONE PO; +NAPR-832 PO; -NAPR550T22 PO; +PANT40TA3 PO; -RAMI1.25 PO; +RAMI1CAP21 PO; +SOOL1CRE TOP; +SPIR-10 PO; +TORS10TA3 PO; +VITA100066 PO; +VITA2000 PO; +[UNRECOGNIZED DRUG - CODE] PO
== END 2018-06-05 ==
LOC: M CR 10:34
PROVIDERS: ATTEND Internal Medicine Cardiovascular Disease
DX: I50.9 Heart failure, unspecified (principal)

== ENCOUNTER → 2018-06-27 | Outpatient (CLI) | payer MEDICARE, OTHER ==
[~2018-06-27] MED LIST changes: +ALDA25TA2; +ANAP550T15 PO; +ASPI-286 GT; -CHIL81CH2 GT; -MAGN1TAB25 PO; +MAGN1TAB26 PO; +NYST-15 TOP; -NYST10PW TOP; -SENN1TAB2 PO; +SENN1TAB40 PO; +TRIA0.1C60 TOP; -TRIA1CR TOP; -[UNRECOGNIZED DRUG - CODE] PO
== END ==
LOC: M WUC 13:23
PROVIDERS: ATTEND Radiology Radiation Oncology
DX: C61 Malignant neoplasm of prostate (principal)

== ENCOUNTER → 2018-07-02 | Outpatient (CLI) | payer MEDICARE, OTHER ==
[~2018-07-02] MED LIST changes: -ALDA25TA2; -ANAP550T15 PO; -ASPI-286 GT; +CHIL81CH2 GT; +MAGN1TAB25 PO; -MAGN1TAB26 PO; -NYST-15 TOP; +NYST10PW TOP; +SENN1TAB2 PO; -SENN1TAB40 PO; -TRIA0.1C60 TOP; +TRIA1CR TOP; +[UNRECOGNIZED DRUG - CODE] PO
--- NOTE | 2018-07-07 09:18 | RADONC ---
RADIATION ONCOLOGY FOLLOWUP NOTE DATE: 07/02/2018 CHART NUMBER: [id number] DIAGNOSIS: Prostate cancer. STAGE: IIA, [id number]. ECOG PERFORMANCE STATUS: 1. FOLLOWUP NOTE: Mr. Flores is a very pleasant 74-year-old white male with the diagnosis of a stage IIA, [id number], moderate to poorly differentiated [place] score 7 (3-4) adenocarcinoma of prostate who is presenting to us today for routine followup visit 3-1/2 years post completion of external beam radiation therapy. The patient presents today reporting that he is doing quite well with no complaints at this time related to his radiation therapy or disease. He is having no urinary or bowel difficulties and no bone pain. The patient's review of systems is positive for his physical limitations secondary to his polio. It is otherwise noncontributory. He denies nausea, vomiting, fevers, chills, night sweats, diplopia, headaches, anxiety or depression, anorexia, weight loss, visual disturbances, chest pain, urinary or bowel difficulties, bone pain, or neurological problems. PHYSICAL EXAMINATION: The patient is a well-developed, well-nourished male in no acute distress. HEENT exam is normocephalic, atraumatic. Extraocular movements are intact. There is no palpable cervical, supraclavicular, infraclavicular, axillary, or inguinal lymphadenopathy present. Lungs are clear to auscultation and percussion. Heart has a regular rate and rhythm. Abdomen is benign with no hepatosplenomegaly, masses, or tenderness. Rectal examination reveals a normal anal sphincter tone. His prostate is smooth with no evidence of nodularity. Skeletal examination reveals no tenderness to pressure or percussion of the bony skeleton. Extremities reveal no clubbing, cyanosis, or edema. Neurologic exam is grossly intact as is the remainder of the physical examination. ASSESSMENT: The patient is clinically HARSHA at this time and will be seen by us again in 6 months for further followup. He will also continue to be followed by his other physicians as well. cc: MD Manuel Hernandez MD Edmund Roache, MD
== END ==
LOC: M ONCR 15:03
PROVIDERS: ATTEND Radiology Radiation Oncology
DX: C61 Malignant neoplasm of prostate (principal)

== ENCOUNTER 2018-08-13 13:00 | Emergency (ER) | payer MEDICARE, OTHER ==
[~2018-08-13] VITALS: Ht 157.5 cm; Wt 53.6 kg
[~2018-08-13 13:00] MED LIST changes: +ANAP550T15 PO; +ASPI-286 GT; -CHIL81CH2 GT; -MAGN1TAB25 PO; +MAGN1TAB26 PO; +NYST-15 TOP; -NYST10PW TOP; -SENN1TAB2 PO; +SENN1TAB40 PO; +TRIA0.1C60 TOP; -TRIA1CR TOP; -[UNRECOGNIZED DRUG - CODE] PO
[2018-08-13] MEDS ORDERED: ALDA25TA2 (13:15)
[2018-08-13] MEDS ORDERED: FUROSEMIDE 20 MG/2 ML VIAL (J1940) IV ONE (13:45)
[2018-08-13 14:11] LABS: BASO # 0.1 10^3/uL (0.0-0.2); BASO % 1.4 % (0.0-1.0); EOS % 0.8 % (0.0-3.0); HEMATOCRIT 60.1 % (42.0-52.0); HEMOGLOBIN 19.4 g/dl (13.5-17.5); LYMPH # 0.5 10^3/uL (1.5-4.5); LYMPH % 12.4 % (24.0-44.0); MEAN CORPUSCULAR HEMOGLOBIN 34.8 pg (27.0-33.0); MEAN CORPUSCULAR HGB CONC 32.3 g/dl (32.0-36.5); MEAN CORPUSCULAR VOLUME 107.9 fl (80.0-96.0); MONO # 0.5 10^3/uL (0.0-0.8); NEUTROPHILS # 2.7 10^3/uL (1.8-7.7); NEUTROPHILS % 72.1 % (36.0-66.0); RED BLOOD COUNT 5.57 10^6/uL (4.30-6.10); WHITE BLOOD COUNT 3.7 10^3/uL (4.0-10.0)
--- NOTE | 2018-08-13 14:11 | REP ---
PORTABLE CHEST: AP portable view of the chest is performed. COMPARISON: 11/16/2017 as well as other prior exams. There is mild cardiomegaly. There is venous hypertension. There are bibasilar fibroatelectatic changes which appear stable when compared to prior studies. There is severe right thoracic scoliosis. There is a left single-lead pacemaker. IMPRESSION: Cardiomegaly. Stable bibasilar fibroatelectatic changes with no definite acute abnormality. Electronically Signed by Abhi Rao MD 08/13/2018 03:24 P
[2018-08-13 14:29] LABS: PLATELET COUNT, AUTOMATED 71 10^3/uL (150-450)
[2018-08-13 14:47] LABS: ALBUMIN 4.4 GM/DL (3.2-5.2); ALT/SGPT 36 U/L (12-78); BILIRUBIN,DIRECT 0.5 MG/DL (0.0-0.2); BILIRUBIN,TOTAL 2.2 MG/DL (0.2-1.0); BLOOD UREA NITROGEN 39 MG/DL (7-18); CALCIUM LEVEL 10.3 MG/DL (8.8-10.2); CARBON DIOXIDE LEVEL 38 MEQ/L (21-32); CHLORIDE LEVEL 97 MEQ/L (98-107); CPK CREATINE PHOSPHOKINASE 91 U/L (39-308); CREATININE FOR GFR 0.76 MG/DL (0.70-1.30); FREE T4 1.39 NG/DL (0.76-1.46); GLOMERULAR FILTRATION RATE > 60.0 (>42); GLUCOSE, FASTING 71 MG/DL (70-100); LIPASE 303 U/L (73-393); MB/CK RELATIVE INDEX 10.66 (< OR =4); NT-PRO BNP 8481 PG/ML (<125); POTASSIUM SERUM 4.7 MEQ/L (3.5-5.1); SODIUM LEVEL 141 MEQ/L (136-145); TOTAL PROTEIN 6.8 GM/DL (6.4-8.2); TROPONIN I 0.21 NG/ML (< 0.10)
[2018-08-13 15:58] VITALS: O2SAT 87
[2018-08-13 16:15] VITALS: BP 104/55
--- NOTE | 2018-08-13 21:43 | ECGEPIP ---
Stationary ECG Study [facility] - ED Test Date: 2018-08-13 Pat Name: SHE QUIGLEY Department: Room: - Gender: M Tester Operator: : 1945 Requested By: Hyacinth Borrero Order Number: [id number] Reading MD: Abbie Dhaliwal Measurements Intervals [place] Rate: 61 P: 43 SD: 320 QRS: -9 QRSD: 166 T: 104 QT: 444 QTc: 450 Interpretive Statements SINUS RHYTHM WITH FIRST DEGREE AV BLOCK RIGHT ATRIAL ENLARGEMENT LEFT ATRIAL ENLARGEMENT INTRAVENTRICULAR CONDUCTION DELAY EARLY R PROGRESSION Electronically Signed On 08-13-2018 21:42:40 EDT by Abbie Dhaliwal
== END 2018-08-13 16:34 | disposition home or self-care (01) ==
LOC: M ED 13:00
DX: I50.9 Heart failure, unspecified (principal); R79.89 Other specified abnormal findings of blood chemistry; D69.6 Thrombocytopenia, unspecified; D75.1 Secondary polycythemia; I45.19 Other right bundle-branch block; J45.909 Unspecified asthma, uncomplicated; I12.9 Hypertensive chronic kidney disease with stage 1 through stage 4 chronic kidney disease, or unspecified chronic kidney disease; Z79.899 Other long term (current) drug therapy; Z79.82 Long term (current) use of aspirin; Z88.0 Allergy status to penicillin; Z91.040 Latex allergy status; Z87.891 Personal history of nicotine dependence
CPT/HCPCS: 36415; 71045; 80048; 80076; 82550; 82553; 83690; 83880; 84439; 84443; 84484; 85025; 85049; 85055; 93005; 93041; 94760; 96374; 99285; J1940

== ENCOUNTER 2018-08-20 20:21 | Emergency (ER) | payer MEDICARE, OTHER ==
[~2018-08-20] VITALS: Ht 157.5 cm; Wt 87.3 kg
[~2018-08-20 20:21] MED LIST changes: +ALDA25TA2
[2018-08-20] MEDS ORDERED: ALDA25TA2 PO (20:51)
[2018-08-20] MEDS ORDERED: CARV3.12 PO (20:51)
[2018-08-20] MEDS ORDERED: D3 A1000 PO (20:51)
[2018-08-20] MEDS ORDERED: TORS10TA3 PO (20:52)
[2018-08-20] MEDS ORDERED: FUROSEMIDE 40 MG/4 ML VIAL (J1940) IV ONE (21:30)
[2018-08-20 21:41] LABS: BASO % 0.7 % (0.0-1.0); EOS # 0.1 10^3/uL (0.0-0.50); EOS % 1.4 % (0.0-3.0); HEMATOCRIT 59.4 % (42.0-52.0); HEMOGLOBIN 18.9 g/dl (13.5-17.5); LYMPH # 0.5 10^3/uL (1.5-4.5); LYMPH % 8.6 % (24.0-44.0); MEAN CORPUSCULAR HEMOGLOBIN 34.4 pg (27.0-33.0); MEAN CORPUSCULAR HGB CONC 31.8 g/dl (32.0-36.5); MEAN CORPUSCULAR VOLUME 108.2 fl (80.0-96.0); MONO # 0.7 10^3/uL (0.0-0.8); MONO % 11.4 % (0.0-5.0); NEUTROPHILS # 4.5 10^3/uL (1.8-7.7); NEUTROPHILS % 77.6 % (36.0-66.0); RED BLOOD COUNT 5.49 10^6/uL (4.30-6.10); WHITE BLOOD COUNT 5.8 10^3/uL (4.0-10.0)
[2018-08-20 22:06] LABS: BLOOD UREA NITROGEN 44 MG/DL (7-18); CALCIUM LEVEL 9.3 MG/DL (8.8-10.2); CARBON DIOXIDE LEVEL 32 MEQ/L (21-32); CHLORIDE LEVEL 100 MEQ/L (98-107); CPK CREATINE PHOSPHOKINASE 96 U/L (39-308); CREATININE FOR GFR 1.09 MG/DL (0.70-1.30); GLOMERULAR FILTRATION RATE > 60.0 (>42); GLUCOSE, FASTING 107 MG/DL (70-100); MB/CK RELATIVE INDEX 8.75 (< OR =4); NT-PRO BNP 9832 PG/ML (<125); PLATELET COUNT, AUTOMATED 72 10^3/uL (150-450); POTASSIUM SERUM 5.1 MEQ/L (3.5-5.1); SODIUM LEVEL 136 MEQ/L (136-145); TROPONIN I 0.17 NG/ML (< 0.10)
[2018-08-21 00:07] VITALS: BP 93/51
--- NOTE | 2018-08-21 07:48 | REP ---
Portable chest, 09:06 p.m., single AP view, the patient is upright: Comparison is 08/13/2018. There is severe thoracic scoliosis convex right, obscuring almost the entire right hemithorax. There is atelectasis inferiorly in the right lung, possibly secondary to the scoliosis. The left lung is clear. Cardiac size cannot be assessed, the right cardiac margin is obscured. There is a pacemaker, unchanged. Impression: Atelectasis inferior in the right lung, possibly secondary to the scoliosis. Electronically Signed by Abhi Porter MD 08/21/2018 07:40 A
--- NOTE | 2018-08-21 21:42 | ECGEPIP ---
Stationary ECG Study [facility] - ED Test Date: 2018-08-20 Pat Name: SHE QUIGLEY Department: Room: - Gender: M Curtain Drier: JACQUI : 1945 Requested By: ESTHER Mcghee Order Number: [id number] Reading MD: Abbie Dhaliwal Measurements Intervals [place] Rate: 66 P: 37 DC: 313 QRS: -10 QRSD: 161 T: 129 QT: 422 QTc: 444 Interpretive Statements SINUS RHYTHM WITH FIRST DEGREE AV BLOCK RIGHT ATRIAL ENLARGEMENT INTRAVENTRICULAR CONDUCTION DELAY SIMILAR 08/13/18 Electronically Signed On 08-21-2018 21:42:06 EDT by Abbie Dhaliwal
== END 2018-08-21 00:08 | disposition home or self-care (01) ==
LOC: M ED 20:21
DX: I50.9 Heart failure, unspecified (principal); I44.0 Atrioventricular block, first degree; I45.9 Conduction disorder, unspecified; I51.7 Cardiomegaly; M41.9 Scoliosis, unspecified; J98.4 Other disorders of lung; Z95.0 Presence of cardiac pacemaker; Z79.82 Long term (current) use of aspirin; Z79.899 Other long term (current) drug therapy; Z91.040 Latex allergy status; Z88.0 Allergy status to penicillin
CPT/HCPCS: 71045; 80048; 82550; 82553; 83880; 84484; 85025; 85049; 85055; 93005; 93041; 94760; 96374; 99284; J1940

== ENCOUNTER 2018-08-27 20:47 | Inpatient (IN) | payer MEDICARE, OTHER ==
[~2018-08-27] VITALS: Ht 157.5 cm; Wt 56.3 kg
[~2018-08-27 20:47] MED LIST changes: +D3 A1000 PO
[2018-08-27] MEDS ORDERED: FUROSEMIDE 40 MG/4 ML VIAL (J1940) IV ONE (21:30)
[2018-08-27 22:05] LABS: BASO % 0.8 % (0.0-1.0); EOS % 0.8 % (0.0-3.0); HEMATOCRIT 59.1 % (42.0-52.0); HEMOGLOBIN 19.3 g/dl (13.5-17.5); LYMPH # 0.5 10^3/uL (1.5-4.5); MEAN CORPUSCULAR HGB CONC 32.7 g/dl (32.0-36.5); MEAN CORPUSCULAR VOLUME 107.3 fl (80.0-96.0); MONO # 0.8 10^3/uL (0.0-0.8); MONO % 14.8 % (0.0-5.0); NEUTROPHILS # 3.9 10^3/uL (1.8-7.7); NEUTROPHILS % 73.2 % (36.0-66.0); RED BLOOD COUNT 5.51 10^6/uL (4.30-6.10); WHITE BLOOD COUNT 5.3 10^3/uL (4.0-10.0)
[2018-08-27] MEDS ORDERED: ALL10TAB28 PO (22:24)
[2018-08-27] MEDS ORDERED: PROL60SO SC (22:24)
[2018-08-27] MEDS ORDERED: SPIR-10 PO (22:24)
[2018-08-27] MEDS ORDERED: VITA-144 PO (22:24)
[2018-08-27] MEDS ORDERED: ASPI81CH33 PO (22:24)
--- NOTE | 2018-08-27 22:26 | ECGEPIP ---
Stationary ECG Study [facility] - ED Test Date: 2018-08-27 Pat Name: SHE QUIGLEY Department: Room: - Gender: M Psychologist Educational: GT : 1945 Requested By: ESTHER HALL PA-C. Order Number: [id number] Reading MD: Tushar Mendoza Measurements Intervals [place] Rate: 66 P: 34 MT: 306 QRS: -11 QRSD: 158 T: 144 QT: 411 QTc: 433 Interpretive Statements SINUS RHYTHM WITH FIRST DEGREE AV BLOCK RIGHT ATRIAL ENLARGEMENT POSSIBLE LEFT ATRIAL ENLARGEMENT INTRAVENTRICULAR CONDUCTION DELAY SIMILAR TO 08/20/18 Electronically Signed On 08-27-2018 22:25:49 EDT by Tushar Mendoza
[2018-08-27 22:27] LABS: PLATELET COUNT, AUTOMATED 70 10^3/uL (150-450)
[2018-08-27 23:13] LABS: BLOOD UREA NITROGEN 53 MG/DL (7-18); CALCIUM LEVEL 8.6 MG/DL (8.8-10.2); CARBON DIOXIDE LEVEL 35 MEQ/L (21-32); CHLORIDE LEVEL 96 MEQ/L (98-107); CPK CREATINE PHOSPHOKINASE 127 U/L (39-308); CREATININE FOR GFR 0.97 MG/DL (0.70-1.30); GLOMERULAR FILTRATION RATE > 60.0 (>42); GLUCOSE, FASTING 114 MG/DL (70-100); MB/CK RELATIVE INDEX 5.98 (< OR =4); NT-PRO BNP 11358 PG/ML (<125); POTASSIUM SERUM 5.5 MEQ/L (3.5-5.1); SODIUM LEVEL 135 MEQ/L (136-145); TROPONIN I 0.23 NG/ML (< 0.10)
[2018-08-28] VITALS (77 sets, daily range): BP systolic 58–135; BP diastolic 32–58
[2018-08-28 00:16] LABS: APPEARANCE, URINE CLEAR (CLEAR); BACTERIA, URINE AUTO NEGATIVE (NEGATIVE); BILIRUBIN, URINE AUTO NEGATIVE (NEGATIVE); BLOOD, URINE BLOOD NEGATIVE (NEGATIVE); COLOR, URINE YELLOW (YELLOW); GLUCOSE, URINE (UA) AUTO NEGATIVE (NEGATIVE); KETONE, URINE AUTO NEGATIVE (NEGATIVE); LEUKOCYTE ESTERASE, URINE AUTO NEGATIVE (NEGATIVE); MUCUS, URINE SMALL (NEGATIVE); NITRITE, URINE AUTO NEGATIVE (NEGATIVE); PROTEIN, URINE AUTO NEGATIVE (NEGATIVE); RBC, URINE AUTO 0 /HPF (0-3); SPECIFIC GRAVITY URINE AUTO 1.009 (1.002-1.035); SQUAMOUS EPITHELIAL CELL UR AU 0 /HPF (0-6); UROBILINOGEN, URINE AUTO 0.2 mg/dL (0.0-2.0); WBC, URINE AUTO 1 /HPF (0-3)
[2018-08-28] MEDS ORDERED: MOM 30ML SUSPENSION UDC PO PRN (03:15)
[2018-08-28] MEDS ORDERED: ACETAMINOPHEN TAB 650MG DOSE (2X325MG) PO PRN (03:15)
[2018-08-28] MEDS: PRAVASTATIN 10 MG TAB PO SCH ×2 (03:21→21:43)
--- NOTE | 2018-08-28 06:31 | HPEPDOC ---
General Date of Admission Aug 28, 2018 at 00:09 Primary Care Physician: Shiela Shi Other Providers Cardio: Dr. Adams Pulm: Dr. Mcgregor Electronic Components Assembler: Dr. Matias in [facility] Chief Complaint The patient is a 73-year-old male admitted with a reason for visit of Shortness Of Breath. History of Present Illness 71-year-old male with history of systolic & diastolic CHF, EF 30-35% s/p AICD, Hx of nonischemic cardiomyopathy and CAD s/p cardiac cath, presents to ER with for worsening dyspnea on exertion, orthopnea, PND, lower extremity edema over the past 1-2 weeks. They state they have been working with his electric milkers installer Dr. Adams to adjust his diuretics. He is on spironolactone and torsemide, the latter which was recently increased from twice a day to 3 times a day last week. He admits to coughing clear phlegm, but no f/c/wheezing. He denies sick contacts, other changes in meds, or recent travel. Per reports, ER spoke with Dr. Adams, who would like pt admitted and managed with IV diuretics for decompensated state. Home Medications Scheduled Aspirin (Aspirin) 81 Mg Tab.chew, 81 MG PO DAILY, (Reported) TAKES AT 1400 Calcium Carb/Vitamin D3/Vit K1 (Viactiv Soft Chew) 1 Chw Chw, 1 CHW PO DAILY, (Reported) Carvedilol (Carvedilol) 3.125 Mg Tablet, 0.5 TAB PO BID, (Reported) take if SBP > 95 Cetirizine HCl (Cetirizine HCl) 10 Mg Tablet, 10 MG PO DAILY, (Reported) Cholecalciferol (Vitamin D3) (Vitamin D3) 1,000 Unit Tablet, 2,000 UNIT PO DAILY, (Reported) Denosumab Injection (Prolia) 60 Mg/1 Ml Syringe, 60 MG SC ASDIRECTED, (Reported) EVERY SIX MONTHS, LAST DOSE WAS IN APRIL 2018 Multivitamins (Thera M Plus Tablet) 1 Tab Tab, 1 TAB PO DAILY, (Reported) Pravastatin Sodium (Pravastatin Sodium) 10 Mg Tab, 10 MG PO QHS, (Reported) Spironolactone (Spironolactone) 25 Mg Tablet, 12.5 MG PO DAILY, (Reported) TAKES AT 1400 Torsemide (Torsemide) 10 Mg Tablet, 10 MG PO TID, (Reported) ONLY TOOK 2 OF 3 DOSES FOR 08/27/18 Scheduled PRN Lactose-Reduced Food (Ensure Active High Protein) 1 Liq Liq, 1 LIQ PO DAILY PRN for NUTRITIONAL BOOST, (Reported) Allergies Coded Allergies: Penicillins (Verified Allergy, Intermediate, hives, 08/20/18) latex (Verified Allergy, Intermediate, rash , 08/20/18) Past Medical History Medical History Diastolic & Systolic CHF 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 Surgical History PPM/AICD placed ~4 years ago in [place] Ex Lap with abdominal mass resection '15 Family History Noncontributory Social History Tobacco: Quit in 1993. 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 Admits YIP, cough with clear phlegm Cardiac: Denies chest pain, palpitations. Admits orthopnea, PND, edema worsening in past 2 weeks GI: Denies nausea, vomiting, abdominal pain, blood loss MSK: Denies new pains or aches Neurologic: Denies new weakness or numbness/tingling. Admits to hx of Polio Physical Examination Other physical findings General exam: Alert and cooperative, A&O, NAD Eye exam: PERRLA, EOMI ENT: Atraumatic, normocephalic, mucus membranes moist Neck: Supple, +JVD Cardiac: RRR, normal S1 & S2 Respiratory: Poor respiratory effort given severe scoliosis, overall sounds clear without adventitious sounds. No accessory muscle use or resp distress Abdomen: normoactive bowel sounds, soft, nontender, nondistended Extremity: 2+ radial pulses, 2-3+ edema b/l up the thighs. No calf tenderness Skin: [place], warm, dry, no visible rash or lesions Psych: Normal mood, flat affect Vital Signs Vital Signs Date Time Temp Pulse Resp B/P (MAP) Pulse Ox O2 Delivery O2 Flow Rate FiO2 08/28/18 05:31 79 16 126/59 (81) 94 Nasal Cannula 1.0 08/28/18 01:43 96.0 Laboratory Data Labs 24H Laboratory Tests 2 08/27/18 21:54: Immature Granulocyte % (Auto) 0.4, White Blood Count 5.3, Red Blood Count 5.51, Hemoglobin 19.3H, Hematocrit 59.1H, Mean Corpuscular Volume 107.3H, Mean Corpuscular Hemoglobin 35.0H, Mean Corpuscular Hemoglobin Concent 32.7, Red Cell Distribution Width 15.2H, Platelet Count 70L, Neutrophils (%) (Auto) 73.2H, Lymphocytes (%) (Auto) 10.0L, Monocytes (%) (Auto) 14.8H, Eosinophils (%) (Auto) 0.8, Basophils (%) (Auto) 0.8, Neutrophils # (Auto) 3.9, Lymphocytes # (Auto) 0.5L, Monocytes # (Auto) 0.8, Eosinophils # (Auto) 0.0, Basophils # (Auto) 0.0, Nucleated Red Blood Cells % (auto) 0.0, Immature Platelet Fraction 13.1H, Anion Gap 4L, Glomerular Filtration Rate > 60.0, Blood Urea Nitrogen 53H, Creatinine 0.97, Sodium Level 135L, Potassium Level 5.5H, Chloride Level 96L, Carbon Dioxide Level 35H, Calcium Level 8.6L, Total Creatine Kinase 127, Creatine Kinase MB 8.0H, Creatine Kinase MB Relative Index 5.98H, Troponin I 0.23H, HK-Aqd-Q-Type Natriuretic Peptide [id number] 08/28/18 00:05: Urine Appearance CLEAR, Urine Color YELLOW, Urine pH 5.0, Urine Specific [place] 1.009, Urine Protein NEGATIVE, Urine Glucose (UA) NEGATIVE, Urine Ketones NEGATIVE, Urine Urobilinogen 0.2, Urine Bilirubin NEGATIVE, Urine Leukocyte Esterase NEGATIVE, Urine Blood NEGATIVE, Urine Nitrite NEGATIVE, Urine WBC (Auto) 1, Urine RBC (Auto) 0, Urine Hyaline Casts (Auto) 40, Urine Bacteria (Auto) NEGATIVE, Urine Squamous Epithelial Cells 0, Urine Mucus (Auto) SMALL, Urine Sperm (Auto) CBC/BMP Laboratory Tests 08/27/18 21:54 Red Blood Count 5.51, Mean Corpuscular Volume 107.3 H, Mean Corpuscular Hemoglobin 35.0 H, Mean Corpuscular Hemoglobin Concent 32.7, Red Cell Distribution Width 15.2 H, Neutrophils (%) (Auto) 73.2 H, Lymphocytes (%) (Auto) 10.0 L, Monocytes (%) (Auto) 14.8 H, Eosinophils (%) (Auto) 0.8, Basophils (%) (Auto) 0.8, Neutrophils # (Auto) 3.9, Lymphocytes # (Auto) 0.5 L, Monocytes # (Auto) 0.8, Eosinophils # (Auto) 0.0, Basophils # (Auto) 0.0, Calcium Level 8.6 L, Total Creatine Kinase 127 Assessment/Plan Decompensated Systolic + Diastolic CHF Positive JVD, 2+ pitting edema, imaging & BNP 11k+ confirming hypervolemic state. Last echo 11/20 reveals EF 30-35% and diastolic dysfunction. He does have PPM/AICD in place. Decompensation likely 2/2 noncompliance and possibly worsening baseline cardiac function. Patient's does admit to patient secretly going over this 1.5L fluid restriction, and he has been working with his electric milkers installer in outpatient setting to readjust his regimen over the past 2 weeks. He has not seen much improvement despite increase in torsemide from twice a day to 3 times a day. Will currently hold home diuretics, and place on IV Lasix with goal of net -2L. strict I's and O's, fluid restriction, daily weights. Cardiology has been consulted by the ER, Dr. Adams will see the patient in the hospital, appreciate input. Erythrocytosis, thrombocytopenia It appears this is new for him within the past month. He states he is in the process of being set up with hand inserter operator in [place] to further assess this. He is otherwise currently hemodynamically stable, no active bleeding. Continue monitoring. Elevated troponin it appears this is chronic for him. He does have hx of nonischemic cardiomyopathy. No chest pain or discomfort, EKG on admission unremarkable. Is likely 2/2 decompensated CHF. Will recheck in a.m. 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 Mcgregor CAD s/p cath '14 Continue home aspirin statin bblocker Hypertension Hold spironolactone and torsemide on hold as he receives IV Lasix. Continue home cord with hold parameters Osteoporosis Continue vitamin D supplement. On Prolia outpatient Hx prostate cancer s/p radiation 2014, follows Dr. Morales DVT ppx: mechanical due to low platelets DISPO: will admit to hospital, monitor vol status. To be seen by Cardio. Plan / VTE VTE Prophylaxis Ordered?: Yes GME ATTESTATION GME ATTESTATION My faculty preceptor for this patient encounter was physically present during the encounter and was fully available. All aspects of the patient interview, examination, medical decision making process, and medical care plan development were reviewed and approved by the faculty preceptor. The faculty preceptor is aware and concurs with the plan as stated in the body of this note and will attest to such by his/her cosignature. ATTENDING NOTE I have personally examined the patient at bedside along with resident physician. I have discussed above mentioned assessment and plan with resident physician. 73 y/o M with multiple comorbidities including chronic systolic CHF and newly diagnosed chronic hypoxic respiratory failure on home 1 liter O2 was brought to ER for c/o worsening shortness of breath and b/l lower extremities edema. Recently as outpatient home Torsemide was increased to TID due to concern of volume overload. Pt was found with significantly elevated BNP and on physical examination b/l lower extremities edema, lung auscultation- no crepitations. As per cardiology recommendation pt was given iv lasix. Impression- shortness of breath and worsening b/l lower extremity edema most probably related to acute on chronic systolic CHF exacerbation and erythrocytosis. Plan Acute on chronic systolic CHF exacerbation pt already received 40 mg lasix in ER. will hold on diuretics for now in view elevated Hb. Morning team to f/u with cardiology service regarding diuretics. Erythrocytosis. On review of prior labs it was found out that pt does have h/o elevated Hb. will consider inpatient hematology eval. Recently diagnosed chronic hypoxic respiratory failure will continue home O2 with target SpO2 of 88 to 92 %. ANNA SIGALA DO Aug 28, 2018 06:31 CHRISSIE ORDOÑEZ MD Aug 29, 2018 00:11
[2018-08-28 07:56] LABS: HEMATOCRIT 63.5 % (42.0-52.0); HEMOGLOBIN 19.8 g/dl (13.5-17.5); MEAN CORPUSCULAR HEMOGLOBIN 34.5 pg (27.0-33.0); MEAN CORPUSCULAR HGB CONC 31.2 g/dl (32.0-36.5); MEAN CORPUSCULAR VOLUME 110.6 fl (80.0-96.0); RED BLOOD COUNT 5.74 10^6/uL (4.30-6.10); WHITE BLOOD COUNT 6.3 10^3/uL (4.0-10.0)
[2018-08-28] MEDS: FUROSEMIDE 40 MG/4 ML VIAL (J1940) IV SCH ×3 (08:00→16:00)
[2018-08-28 08:20] LABS: PLATELET COUNT, AUTOMATED 74 10^3/uL (150-450)
[2018-08-28 08:23] LABS: CREATININE FOR GFR 1.38 MG/DL (0.70-1.30); GLOMERULAR FILTRATION RATE 53.9 (>42); MAGNESIUM LEVEL 2.4 MG/DL (1.8-2.4); MB/CK RELATIVE INDEX 13.87 (< OR =4); POTASSIUM SERUM 4.7 MEQ/L (3.5-5.1); TROPONIN I 0.3 NG/ML (< 0.10)
[2018-08-28] MEDS: VITAMIN D 1,000 INTERNATIONAL UNITS TABLET PO SCH (08:47)
[2018-08-28] MEDS: MULTIVITAMINS/MINERALS THERAP 1 TAB PO SCH (08:47)
[2018-08-28] MEDS: CETIRIZINE (ZyrTEC) 10 MG TAB PO SCH (08:47)
--- NOTE | 2018-08-28 08:47 | REP ---
Chest x-ray: Two views. History: Peripheral edema. CHF. Comparison chest x-ray: August 20, 2018. Findings: There is severe thoracic scoliosis with a dextroconvex curve and associated rib deformity. A unipolar pacemaker is seen in the right heart via the left side as before. There is diffuse osteopenia. The lungs are difficult to evaluate but there does appear to be a pattern of increased density in the right lower lung field on today's frontal view which may reflect pneumonia. There is a suggestion of air bronchograms. This I cannot exclude small bilateral effusions. Lateral view shows significant kyphosis along with a scoliosis. Mitral annular calcification is seen. Impression: Cardiomegaly, severe kyphoscoliosis, and a probable right base pneumonia. Electronically Signed by Don Ramirez MD 08/28/2018 08:38 A
[2018-08-28] MEDS ORDERED: CARVedilol 3.125 MG TAB PO SCH (09:00)
[2018-08-28 10:39] LABS: ABG BASE EXCESS 2.3 (-2.0-2.0); ABG O2 SATURATION 94.4 % (95.0-99.0); ABG STANDARD HCO3 26.3 MEQ/L (22.0-26.0)
[2018-08-28 10:41] LABS: ABG PARTIAL PRESSURE CO2 96.6 mmHg (35.0-45.0); ABG pH (ARTERIAL) 7.189 UNITS (7.350-7.450)
[2018-08-28 13:13] LABS: AMORPHOUS SEDIMENT SMALL (NEGATIVE); APPEARANCE, URINE CLOUDY (CLEAR); BACTERIA, URINE AUTO NEGATIVE (NEGATIVE); BILIRUBIN, URINE AUTO NEGATIVE (NEGATIVE); BLOOD, URINE BLOOD NEGATIVE (NEGATIVE); COLOR, URINE AMBER (YELLOW); GLUCOSE, URINE (UA) AUTO NEGATIVE (NEGATIVE); KETONE, URINE AUTO NEGATIVE (NEGATIVE); LEUKOCYTE ESTERASE, URINE AUTO NEGATIVE (NEGATIVE); MUCUS, URINE SMALL (NEGATIVE); NITRITE, URINE AUTO NEGATIVE (NEGATIVE); PROTEIN, URINE AUTO 2+ mg/dL (NEGATIVE); RBC, URINE AUTO 4 /HPF (0-3); SPECIFIC GRAVITY URINE AUTO 1.014 (1.002-1.035); SQUAMOUS EPITHELIAL CELL UR AU 0 /HPF (0-6); WBC, URINE AUTO 4 /HPF (0-3)
[2018-08-28 13:16] LABS: ABG BASE EXCESS 3.7 (-2.0-2.0); ABG HCO3 37.5 MEQ/L (22.0-26.0); ABG O2 SATURATION 97.8 % (95.0-99.0); ABG PARTIAL PRESSURE O2 111.1 mmHg (75.0-100.0); ABG STANDARD HCO3 27.7 MEQ/L (22.0-26.0); ABG TOTAL CO2 40.6 MEQ/L (23.0-31.0)
[2018-08-28 13:22] LABS: ABG pH (ARTERIAL) 7.192 UNITS (7.350-7.450)
[2018-08-28 13:23] LABS: ABG PARTIAL PRESSURE CO2 100.1 mmHg (35.0-45.0)
[2018-08-28] MEDS: ASPIRIN 81 MG CHEW TABLET PO SCH (14:00)
[2018-08-28] MEDS ORDERED: NS 250 ML IV ONE (15:30)
[2018-08-28 15:45] LABS: ABG BASE EXCESS 5.8 (-2.0-2.0); ABG HCO3 31.6 MEQ/L (22.0-26.0); ABG O2 SATURATION 98.5 % (95.0-99.0); ABG PARTIAL PRESSURE CO2 48.6 mmHg (35.0-45.0); ABG PARTIAL PRESSURE O2 106.1 mmHg (75.0-100.0); ABG STANDARD HCO3 29.8 MEQ/L (22.0-26.0); ABG TOTAL CO2 33.1 MEQ/L (23.0-31.0); ABG pH (ARTERIAL) 7.431 UNITS (7.350-7.450)
[2018-08-28] MEDS ORDERED: NOREPINEPHRINE 4 MG/4 ML AMP As Ordered ONE (16:21)
[2018-08-28] MEDS: NOREPINEPHRINE BITARTRATE 8 MG in D5W 492 ML IV SCH (17:00)
[2018-08-28] MEDS ORDERED: NS 1,000 ML IV ONE (17:15)
--- NOTE | 2018-08-28 17:18 | REP ---
CHEST, PORTABLE: AP portable view of the chest was performed. Comparison is made with prior study of 08/27/2018. There is again opacity in the right lung base suggesting pneumonic consolidation. I can not exclude underlying right effusion. Left lung appears clear. Heart appears enlarged. There is severe right thoracic scoliosis. There is a left single lead pace maker again noted. A right central venous catheter is seen with the tip in the superior vena cava. There is no pneumothorax. Electronically Signed by Abhi Rao MD 08/29/2018 12:39 P
[2018-08-28 17:26] LABS: CARBOXYHEMOGLOBIN 2.6 % (0.0-1.5)
[2018-08-28 17:30] LABS: HEMATOCRIT 53.6 % (42.0-52.0); MEAN CORPUSCULAR HEMOGLOBIN 35.2 pg (27.0-33.0); MEAN CORPUSCULAR HGB CONC 31.9 g/dl (32.0-36.5); MEAN CORPUSCULAR VOLUME 110.3 fl (80.0-96.0); RED BLOOD COUNT 4.86 10^6/uL (4.30-6.10); WHITE BLOOD COUNT 7.4 10^3/uL (4.0-10.0)
[2018-08-28 17:49] LABS: PLATELET COUNT, AUTOMATED 64 10^3/uL (150-450)
[2018-08-28 17:50] LABS: HEMOGLOBIN 17.1 g/dl (13.5-17.5)
[2018-08-28 18:11] LABS: FERRITIN 60 NG/ML (26-388); IRON (FE) 74 UG/DL (65-175); LDH LACTATE DEHYDROGENASE 249 U/L (87-241); PERCENT SATURATION 26.4 % (19.7-50.0); TOTAL IRON BINDING CAPACITY 280 UG/DL (250-450); TOTAL PROTEIN 4.8 GM/DL (6.4-8.2)
[2018-08-28] MEDS: PANTOPRAZOLE 40MG TAB (PROTONIX) PO SCH (18:15)
[2018-08-28] MEDS: cefTRIAXone SOD 1 GM in D5W MINI-BAG PLUS 50 ML IV SCH (18:15)
[2018-08-28 18:17] LABS: VITAMIN B12 LEVEL 884 PG/ML (247-911)
[2018-08-28 18:18] LABS: FOLATE > 24.0 NG/ML (>5.4)
--- NOTE | 2018-08-28 18:19 | RO ---
DATE OF PROCEDURE: 08/28/2018 PREPROCEDURE DIAGNOSIS: Hypotension. POSTPROCEDURE DIAGNOSIS: Hypotension. PROCEDURE: Right internal jugular triple lumen venous catheter placement. SURGEON: Tray Olguin DO DUCT MAKER:None ANESTHESIA:1% lidocaine CONSENT: Written consent was already obtained by Dr. Manuel Drummond. I was called to the bedside to help place a central line as the patient had significant kyphoscoliosis and altered anatomy from the severity of his bony malformation from polio. Upon entering the room, the patient's blood pressure was 50 systolic. He had received only one bolus of 250 mL of fluid. On ultrasounding the neck with a vascular probe, the IJs bilaterally were collapsed. Estimated central venous pressure at that time was approximately 2. I, therefore, ordered IV fluid to be administered at the bedside at 1 liter. Apparently the patient was hemoconcentrated, recently receiving higher levels of diuretics due to concern for the possibility of worsening heart failure as he has known ischemic heart failure. The right internal jugular (IJ) was then prepped and draped in a sterile manner with chlorhexidine, full sterile precautions. 1% lidocaine was introduced subcutaneously. Under direct ultrasound vision, the [place] syringe was introduced in IJ with return of dark venous blood on the first pass. Wire was fed through the needle, and the needle was removed. A hannah in the skin was made, and the triple lumen venous catheter was placed over the wire. This was sutured in at 15 cm. Wire was obviously removed. All three ports returned venous blood flow with suction and flushed easily. A sterile impregnated dressing was placed over the site. Chest x-ray confirmed appropriate position without evidence of pneumothorax. There were no observed complications. [facility]
--- NOTE | 2018-08-28 18:53 | CCN ---
DATE: 08/28/2018 Critical care time was 1 hour and 26 minutes; this excludes all procedures. I was called urgently to the bedside of Mr. Manuel Flores for hypotension. Mr. Flores's recent medical history is quite complicated. He has known ischemic heart cardiomyopathy with decreased cardiac output. He has been having findings of an elevated hematocrit recently. There was thought that the reason he was having increased shortness of breath and hypoxia was because of worsening heart failure; therefore, his diuretics have been increased, and he actually came to the emergency room yesterday and got additional diuretics, and according to his , who is very astute, states that he only had 100 mL of urine output with that intravenous (IV) Lasix. His CO2 content on his laboratory work was very high. The patient states he had been coughing for the past few days with productive mucus. On admission, he was having a therapeutic phlebotomy as an outpatient today and was found to have some altered mental status after only 250 mL were removed. His CO2 level was quite high, and therefore he was seen in the emergency room. He was placed on noninvasive ventilation for hypercarbic hypoxic respiratory failure and then became hypotensive. He had already been evaluated initially by my partner Dr. Fernandez; however, on the change of service I offered assistance immediately for his IJ and help with management due to the business of the service. After 1 liter of fluid, blood pressure improved from 50 systolic to 90 systolic with a mean arterial pressure of 64. I briefly had the patient on Levophed until as blood pressure improved. He is now off Levophed after less than an hours' worth of therapy, and he is starting to make some urine. On admission he did have evidence of new onset of renal insufficiency compared to yesterday with an elevated BUN of 55, creatinine of 1.38. Yesterday's creatinine was 0.97. Troponin has was mildly elevated, and BNP has been elevated. VITAL SIGNS: Currently, temperature is 97.8. Pulse has been low but currently heart rate 62. Respiratory rate was originally 40, is now closer to 18. Oxygen saturation is 100% on bilevel, 20/6, obtaining currently on tidal volumes of 340. He was not a triggering well, and therefore has a set rate of 20, as prescribed by Dr. Fernandez, which I feel it is very reasonable. GENERAL: The patient is much more alert after IV fluid bolus. He is able to talk. HEENT: Sclerae clear and anicteric. Pupils are approximately 6 mm bilaterally and reactive to light. Mucous membranes are moist without lesions. Tongue is midline. NECK: Supple. No tracheal deviation. Obvious bony malformation and rotation of the chest. PULMONARY: Lung sounds are decreased in general without rales, rhonchi, or wheezes. No dullness to percussion. He is barrel-chested. CARDIAC: Distant S1, S2 without audible murmur, rub, or gallop. There is no elevated jugular venous pulse (JVP). In fact, his internal jugulars (IJs) were collapsed. There was no significant hepatojugular reflux. He does have dependent pedal edema; however, he has chronic plantarflexion and chronic immobility. ABDOMEN: Soft, nontender, nondistended with hyperactive bowel sounds. EXTREMITIES: Significant muscle wasting. Significant malformation from prior polio with chronic plantarflexion of the lower extremities and pedal edema. Thromboembolic deterrents (TEDs) are in place. LABORATORY EVALUATION: As mentioned above, shows a sodium of 137, potassium of 4.7, chloride 94, bicarbonate of 41, BUN of 55, creatinine of 1.38, glucose 126, phosphorus of 6. Last troponin was 0.3. Arterial blood gas is now improved is 7.43, pCO2 of 48, and pO2 of 106. White blood cell count is up to 7.1. Hematocrit is down to 53.6 and a platelet count down to 64. Chest x-ray is difficult to interpret due to body habitus. I cannot rule out to pneumonia on the right. There does appear to be some basilar infiltrate on the right. There is blunting of the costophrenic angle. There is cardiomegaly with an implantable cardioverter defibrillator (ICD) pacer in place. There is chronic severe curvature of the spine, curvature of the trachea. I do not view any significant pleural effusions on the lateral field after a chest x-ray was performed after IJ placement, which shows adequate placement of the right IJ, possibly some less aeration of the right, possibly more infiltrate. Better aeration of the left with some overlapping bowel gas over the right side. EKG shows ST depression in the lateral leads, what appears to be right atrial enlargement, left axis deviation, intraventricular conduction delay when compared to August 20 I agree that there is been no significant change in the EKG. IMPRESSION: 1. Severe hypotension, hypovolemic shock, likely secondary to dehydration and attempts for diuresis. I believe this is part of the reason why he is so hemoconcentrated. The extent of his volume contraction likely led to the metabolic alkalosis contributing to his hypercarbia and respiratory failure that he would not be able to compensate for due to his restrictive lung disease from his chest wall abnormalities. Gentle hydration was given. At this point in time we are monitoring blood pressure. He is now making urine. Urine output will be closely monitored. I do have diuretics and antihypertensives on hold at this point in time. His SVO2 is adequate at 79; therefore, I do not believe dobutamine is required. At this point in time will obtain a stat echocardiogram to ensure no evidence of pericardial effusions or worsening cardiomyopathy. 2. Hypercarbic respiratory failure and inability compensate from contraction alkalosis. It is not clear essentially what happened first; however, the patient does have acute hypercarbic respiratory failure in the face of chronic metabolic alkalosis. He may actually hypoventilate because of the severity of his restrictive lung impairment. Will continue bilevel noninvasive therapy, and if he survives this hospitalization assess the need for home bilevel noninvasive therapy. 3. Renal failure. Increased creatinine and BUN, likely from dehydration. Close monitoring of urine output. Fluid status will be very difficult to balance given the severity of his heart failure. 4. Elevated hematocrit. The patient is being tested for the possibility of polycythemia vera. I do believe part of his elevated hematocrit is secondary to dehydration status. Given the fact that he does have erythrocytosis, despite his thrombocytopenia he should be on heparin, unless his thrombocytopenia falls below 50. He remains at high risk for thromboembolic disease, and at this point in time I cannot rule out the possibility of a pulmonary embolism given the severity of his erythrocytosis. Fluids have been administered to help with this and have already brought the hematocrit down some. He remains on aspirin. We will closely monitor for thromboembolic disease, as this patient is at high risk for stroke, pulmonary embolism, and myocardial infarction. 5. Gastrointestinal (GI) prophylaxis. As the patient is not eating, patient should be on pantoprazole. 6. Cough with sputum production. Due to the fact that he has had hypotension and appears dehydrated, I cannot rule out the possibility of sepsis. He responded well to 1 liter of fluid. We would not give any further fluid due to his history of ischemic heart failure, low ejection fraction unless his urine output were to fall or he were to become hypotensive again. Goal is for mean arterial pressure of 65. Lactic acid is pending. We were covering the patient with ceftriaxone as a reasonable coverage for pneumonia; however, sputum culture is pending. Calcitonin will also be obtained. 7. Nothing by mouth status. Will monitor glucose every 6 hours to ensure adequate glucose. OVERALL IMPRESSION: The patient remains at high risk of . At this point in time is full code; however, family is reconsidering this. He is at high risk for requiring mechanical intubation, high risk for myocardial infarction, high risk for stroke, and high risk for pulmonary embolism. MTDD
--- NOTE | 2018-08-28 20:40 | CR ---
DATE OF CONSULTATION: 08/28/[address] Madsen to emergently evaluate Mr. Flores for acute and chronic hypercapnic respiratory failure. HISTORY OF PRESENT ILLNESS: Mr. 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 Apparently, according to his , he has had worsening shortness of breath, orthopnea, paroxysmal nocturnal dyspnea (PND) and lower extremity edema over the past several weeks. They have contacted his community health program representative and his diuretics have been adjusted. He has also visited the emergency department a couple of times. However, he was doing reasonably well, in fact, his states he was working yesterday. This morning, however, he had more marked increase in shortness of breath and decreased mental status. When he went to the emergency department, he was found to have acute and chronic respiratory failure with a pH of 7.19 and a pCO2 of 97. He was not started on non-mechanical ventilation but was transferred to the intensive care unit. When I saw him, he would respond to voice and touch. He did not require sternal rub or deep pain to respond, but he would not answer questions. He was also tachypneic. He was started on non-invasive mechanical ventilation. At bedside, I made multiple manipulations, but his biggest problem was that he would not trigger the device, likely in large part related to his physiology. A different size mask was tried with no change in his ability to trigger the device. He was then placed on full ventilatory support, meaning that his respiratory rate was increased to 20 in addition to supplying an inspiratory positive airway pressure (IPAP) of 20 over an expiratory positive airway pressure (EPAP) of 8. On these settings, he was able to have a consistent tidal volume in the 350-450 range. After some time on these settings, he became more responsive and normalized his arterial blood gas. He was fully responsive when I last saw him several hours later. On reviewing his records, he had been having increasing difficulties since at least the beginning of August. Early in August, his torsemide dosage was doubled. On the , approximately a week after the doubling, he still had some difficulties but was felt be doing reasonably well. More recently with his increased difficulties, his torsemide was increased to three times a day from two times a day. On the 13 of August, his hematocrit was 60. Today, it is 64. He has also been referred to EP for consideration of changing his automatic implantable cardioverter defibrillator (AICD)/defibrillator from one lead to two leads. ALLERGIES: PENICILLINS and LATEX. MEDICATIONS ON ADMISSION: - aspirin 81 mg by mouth daily - Viactiv Soft Chew one by mouth daily - carvedilol 3.125 mg, 0.5 tablet by mouth twice a day - cetirizine 10 mg by mouth daily - vitamin D 2000 units by mouth daily - Prolia 60 mg subcutaneous every 6 months - Ensure one by mouth daily as needed - multivitamin one by mouth daily - pravastatin 10 mg by mouth nightly - spironolactone 12.5 mg by mouth daily - torsemide 10 mg by mouth three times a day PAST MEDICAL HISTORY: 1. Ischemic cardiomyopathy with chronic systolic and diastolic congestive heart failure (CHF) with an ejection fraction (EF) of 20-25%, followed by Dr. Adams. 2. Status post AICD/defibrillator placement, single lead, 09/2014. 3. Coronary artery disease. 4. Status post myocardial infarction. 5. 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 6. History of prostate cancer. 7. 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 8. Abdominal mass (desmoid tumor). 9. Osteoporosis. 10. History of polio at age 5. 11. Status post spinal fusion age 15. 12. Status post muscle transplant - ankle - age 7. 13. Remote history of tobacco usage. SOCIAL HISTORY: Mr. Flores is . He has a remote history of tobacco usage. He does not drink alcohol. No illicit drug usage. FAMILY HISTORY: His mother had a history of coronary artery disease. REVIEW OF SYSTEMS: What is known was obtained from his and is contained within the history of the present illness. Remainder of review of systems unattainable secondary to full face noninvasive mechanical ventilation mask and decreased mental status. PHYSICAL EXAMINATION: GENERAL: Mr. Flores has decreased mental status but is easily arousable and is on non-invasive mechanical ventilation by full face mask. He was not able to trigger the vent but appears comfortable on a driven rate. VITAL SIGNS: Temperature 97.8 with a maximum temperature (T max) of 98.3, respiratory rate 20, pulse 60s, blood pressure initially showed a systolic of 90s and a diastolic of 50s with a mean arterial pressure (MAP) in the mid 60s. Later that decreased, and at the time I initially left the ICU, it was 80/48 with a MAP of 59 with a plan of a bolus if the repeat was still down in 10 minutes. SpO2 98% on an FiO2 of 1.0. HEENT: Anicteric. Pupils 2-3 mm and sluggish. Nares and oropharynx not examined secondary to full face mask. NECK: Minimal movement (has had fusion and has significant kyphoscoliosis). Without jugular venous distention (JVD), without thyromegaly or masses, trachea is midline. LYMPHS: Without cervical or supraclavicular lymphadenopathy. CHEST: Notable for significant changes secondary to kyphoscoliosis. LUNGS: Symmetric excursion, good air entry, difficult examination secondary to body habitus. No obvious crackles, wheeze, or rhonchi. CARDIOVASCULAR: Distant, regular rate and rhythm. No murmur, rub, or gallop appreciated. ABDOMEN: Positive bowel sounds, soft, nondistended, nontender, no hepatosplenomegaly or masses appreciated. EXTREMITIES: Cool but perfused. Capillary refill is sluggish but not significantly extended. There is no clubbing or cyanosis. Positive edema. Significant muscle wasting. LABORATORY DATA: CBC from this morning showed a hemoglobin of 63.5, platelet count 74,000, and white blood cell count 6300. Late last night WBC was 5.3 with a differential 73% neutrophils, 10% lymphocytes, and 15% monocytes. Chemistries from this morning showed a sodium of 137, potassium 4.7, chloride 94, bicarbonate 41, anion gap 2, BUN 55, creatinine 1.4, glucose 126, calcium 9.0, phosphorus 6.4, magnesium 2.4, CK 62, CK-MB 9.0, troponin I 0.3. Arterial blood gas this morning was 7.19/97/82 with a measured saturation of 94%. Repeat blood gas just prior to being started on non-invasive mechanical ventilation was 7.19/100/111 with a measured saturation of 98%. After having been on non-invasive mechanical ventilation with an IPAP of 20, EPAP of 8 and a rate of 20, it was 7.43/49/106 with a measured saturation of 99%. Base excess 5.8. I reviewed his chest x-ray as well as the report from last night. That x-ray showed an enlarged cardiac silhouette and perhaps normal appearing cardiac silhouette. It is very difficult to interpret this film given his significant kyphoscoliosis. There is no apparent infiltrate. No apparent significant increased interstitial markings. IMPRESSION: 1. Acute and chronic hypercapnic respiratory failure. The chronic portion is felt secondary to his restrictive chest disease. 2. Hypotension. Likely secondary to hypovolemia He has been aggressively diuresed recently. 3. Elevated hematocrit. Hematology has been consulted, though based on his history I suspect that a lot of this is hemoconcentration as his diuretics have been significantly increased since the beginning of August. 4. Status post automatic implantable cardioverter defibrillator placement. 5. Ischemic cardiomyopathy with ejection fraction of 20-30%. 6. Chronic congestive heart failure, systolic and diastolic. 7. Restrictive chest disease secondary to kyphoscoliosis. 8. Severe kyphoscoliosis secondary to polio. RECOMMENDATIONS: 1. Mr. Flores was beginning to receive phlebotomy, which I discontinued because of his need to have further assessment. Initially this was a reasonable thought, but after being able to review his history, I feel that he likely is more hemoconcentrated and rehydration should be attempted before further phlebotomy. 2. Agree with central line placement for central venous pressure (CVP) monitoring as well as vasopressor usage. 3. I had recommended to Dr. Madsen that he could consider starting norepinephrine pending placement of central line. 4. Would not further diurese at this point. Again, care can be guided based on CVP and SpO2. 5. Would continue non-invasive mechanical ventilation for the immediate future until the underlying difficulties can be assessed. 6. Unfortunately, given his multiple and severe medical problems, this illness may not be survivable as we may not be capable of further diuresis. CRITICAL CARE TIME: 1 hour, not including procedure time. NUVIA
[2018-08-28] MEDS ORDERED: NS 500 ML IV ONE (21:30)
[2018-08-28] MEDS: HEPARIN SOD (PORCINE) 5000 UNITS/ML VIAL SQ SCH (21:44)
[2018-08-29] VITALS (39 sets, daily range): BP systolic 78–107; BP diastolic 47–61
[2018-08-29] MEDS: NOREPINEPHRINE BITARTRATE 8 MG in D5W 492 ML IV SCH (04:42)
[2018-08-29 04:56] LABS: HEMATOCRIT 52.6 % (42.0-52.0); HEMOGLOBIN 16.7 g/dl (13.5-17.5); MEAN CORPUSCULAR HEMOGLOBIN 34.5 pg (27.0-33.0); MEAN CORPUSCULAR HGB CONC 31.7 g/dl (32.0-36.5); MEAN CORPUSCULAR VOLUME 108.7 fl (80.0-96.0); RED BLOOD COUNT 4.84 10^6/uL (4.30-6.10); WHITE BLOOD COUNT 6.3 10^3/uL (4.0-10.0)
[2018-08-29 04:58] LABS: PLATELET COUNT, AUTOMATED 73 10^3/uL (150-450)
[2018-08-29 05:26] LABS: BLOOD UREA NITROGEN 50 MG/DL (7-18); CALCIUM LEVEL 7.9 MG/DL (8.8-10.2); CARBON DIOXIDE LEVEL 34 MEQ/L (21-32); CHLORIDE LEVEL 98 MEQ/L (98-107); CREATININE FOR GFR 0.96 MG/DL (0.70-1.30); GLOMERULAR FILTRATION RATE > 60.0 (>42); GLUCOSE, FASTING 87 MG/DL (70-100); NT-PRO BNP 9537 PG/ML (<125); POTASSIUM SERUM 3.9 MEQ/L (3.5-5.1); SODIUM LEVEL 140 MEQ/L (136-145)
[2018-08-29 06:02] LABS: ABG BASE EXCESS 2.4 (-2.0-2.0); ABG HCO3 29.1 MEQ/L (22.0-26.0); ABG O2 SATURATION 95.9 % (95.0-99.0); ABG PARTIAL PRESSURE CO2 52.1 mmHg (35.0-45.0); ABG PARTIAL PRESSURE O2 81.1 mmHg (75.0-100.0); ABG STANDARD HCO3 26.5 MEQ/L (22.0-26.0); ABG TOTAL CO2 30.7 MEQ/L (23.0-31.0); ABG pH (ARTERIAL) 7.365 UNITS (7.350-7.450)
[2018-08-29] MEDS: HEPARIN SOD (PORCINE) 5000 UNITS/ML VIAL SQ SCH ×3 (06:12→22:21)
--- NOTE | 2018-08-29 07:51 | ECHO ---
DATE OF PROCEDURE: 08/28/2018 REFERRING PHYSICIAN: Dr. Tray Olguin INDICATION: Congestive heart failure. HEIGHT: 157 cm. WEIGHT: 52 kg. DIMENSIONS: IVS 1.2 LV 4.5 LVPW 1.2 LA 3.9 Aorta 3.3 IVC 2.4 Mitral E wave velocity 58 A-wave 125 E prime septal 2.0 E prime lateral 3.8 FINDINGS: The study is of rather limited technical quality with difficult visualization, especially endocardial definition was poor. Left ventricle is normal size and I estimate overall probably normal or mildly reduced LV systolic function. Right ventricle does not appear grossly dilated. Both atria appear grossly normal. Aortic valve has three cusps. It is mildly sclerotic but mobility is preserved. There are also degenerative abnormalities of mitral valve with mitral annular calcifications but mobility of leaflets is preserved. Tricuspid valve appears normal. Pulmonic valve was not seen. There is an echo artifact in right-sided heart chambers consistent with pacemaker or ICD lead. Inferior vena cava is dilated and has no significant collapse with respiration indicative of likely very high central venous pressure. Aortic root is normal. Aortic arch and abdominal aorta were not visualized. Doppler interrogation reveals no aortic stenosis and mild insufficiency. There is trace mitral insufficiency and mild tricuspid insufficiency. Calculated pulmonary artery pressure is at minimum in 40s corresponding to moderate pulmonary hypertension. Mitral inflow pattern and tissue Doppler imaging of mitral annulus reveal grade 1 diastolic dysfunction. CONCLUSIONS: 1. Study is of fair technical quality. 2. Normal LV size with probably normal or mildly reduced LV systolic function. Grade 1 diastolic dysfunction. 3. Degenerative abnormalities of aortic valve resulting in no stenosis and mild insufficiency. 4. Degenerative abnormalities of mitral valve with no stenosis and trace insufficiency. 5. High central venous pressure and at least moderate pulmonary hypertension. 6. Echo artifacts in right-sided heart chambers likely corresponding pacemaker or ICD lead. COMMENT: SBE prophylaxis is not recommended. MTDD
[2018-08-29] MEDS: VITAMIN D 1,000 INTERNATIONAL UNITS TABLET PO SCH (09:48)
[2018-08-29] MEDS: CETIRIZINE (ZyrTEC) 10 MG TAB PO SCH (09:48)
[2018-08-29] MEDS: MULTIVITAMINS/MINERALS THERAP 1 TAB PO SCH (09:48)
[2018-08-29] MEDS: PANTOPRAZOLE 40MG TAB (PROTONIX) PO SCH (09:48)
[2018-08-29] MEDS: ASPIRIN 81 MG CHEW TABLET PO SCH (13:47)
--- NOTE | 2018-08-29 14:31 | IPNPDOC ---
Subjective Date Seen The patient was seen on 08/29/18. Subjective Chief Complaint/HPI Patient seen and examined at the bedside by myself for the first time this morning. This patient is previously unknown to me, and care was assumed as of 7am this morning. Patient reports feeling better this morning and less lethargic, fatigued. Denies any complaints of chest pain, palpitations, or abdominal pain. Objective Physical Examination General Exam: Positive: Alert, Cooperative, No Acute Distress ENT Exam: Positive: Atraumatic, Mucous membr. moist/pink Chest Exam: Positive: Diminished; Negative: Rales, Rhonchi, Wheezing Heart Exam: Positive: Rate Normal, Normal S1, Normal S2 Telemetry: Positive: Sinus Abdomen Exam: Positive: Soft; Negative: Tenderness Extremity Exam: Positive: Swelling (1+ pitting edema in the lower extremities bilaterally); Negative: Tenderness Psych Exam: Positive: Oriented x 3 A-FIB/CHADSVASC A-FIB History Current/History of A-Fib/PAF?: No Assessment /Plan Plan/VTE VTE Prophylaxis Ordered?: Yes Plan Hypotension/Intravascular Volume Depletion in the setting of Diuretic Therapy Use It appears that the patient's diuretic therapy was being titrated by Cardiology on an outpatient basis. He came to the ER and was given one dose of IV Lasix on the night of admission by the ER on 08/27, as there were apparently concerns about the patient being in decompensated heart failure. He did not receive any further doses. However, the patient became hypotensive with renal insufficiency during this hospital course and had to be given gentle IVF hydration. Consequently the patient's blood pressure improved, as well as his renal insufficiency. The patient was weaned off of Levophed initially but continues to require a small dose this morning (2 mcg). The patient's 2D ECHO during this admission actually reveals improvement of his LVEF from moderate reduction (30-35% EF) in 11/2017 to normal/mildly reduced LVEF on this hospitalization with underlying Diastolic Dysfunction. At this time we will hold off on any further diuretic/antihypertensive therapy. The patient likely does have a narrow therapeutic window in regards to his volume status, and thus we will continue to keep a close eye on his volume/respiratory status. Test Engine Evaluator input appreciated Will follow up with Cardiology recommendations Hypercapnic Respiratory Failure Likely a combination of contraction alkalosis from diuretic therapy and his underlying restrictive lung disease from kyphoscoliosis He was started on BiPAP yesterday and showed improvement/normalization, and has been doing well off of BiPAP this morning We will cont to monitor the patient Pulmonary on board, input appreciated Acute Kidney Injury 2/2 Intravascular Volume Depletion in the setting of Diuretic Use Serum Cr improved following discontinuation of diuretic therapy as gentle IVF Hydration We will cont to monitor the patient off of diuretic therapy at this time Elevated Troponin Markers EKG with no acute ST changes Troponins likely elevated due to demand ischemia from hypotension--It does appear that the patient has had chronically elevated troponins dating back to July of 2014 Patient denies any c/o chest pain, palpitations at this time Cont ASA, Statin Cardiology on board, will f/u with input RLL Infiltrate Possibly a contributing factor to the patient's initial presentation of SOB Sputum culture pending, Procalcitonin level pending Cont on Rocephin at this time Erythrocytosis Contributing factor includes hemoconcentration from diuretic use on admission. This has improved after gentle IVF hydration Hematology has been consulted and is working the patient up for polycythemia vera Dyslipidemia Cont Statin Hx of Prostate Ca Stage IIA Follow up as outpatient GI/DVT Prophylaxis Protonix/Heparin SC Code Status: I had a conversation with the patient and his regarding code status this morning. They had apparently just had the same conversation this morning with the warehouse lead. They confirmed DNR status with a trial of intubation. Guarded clinical condition. VS, I&O, 24H, [facility] Vital Signs/I&O Vital Signs Date Time Temp Pulse Resp B/P (MAP) Pulse Ox O2 Delivery O2 Flow Rate FiO2 08/29/18 12:00 98.0 70 30 93/50 (64) 95 2.0 08/29/18 07:00 28 08/28/18 06:33 Nasal Cannula I&O- Last 24 Hours up to 6 AM 08/29/18 06:00 Intake Total 2200 ml Output Total 595 ml Balance 1605 ml Laboratory Data 24H LABS Laboratory Tests 2 08/28/18 15:26: Blood Gas Bicarbonate Standard 29.8H, Arterial Blood pH 7.431, Arterial Blood Partial Pressure CO2 48.6H, Arterial Blood Partial Pressure O2 106.1H, Arterial Blood Total CO2 33.1H, Arterial Blood HCO3 31.6H, Arterial Blood Base Excess 5.8H, Arterial Blood Oxygen Saturation 98.5 08/28/18 17:07: Nucleated Red Blood Cells % (auto) 0.3H, Central Line Venous O2 Saturation 79.1, Carboxyhemoglobin 2.6H, Iron Level 74, Total Iron Binding Capacity 280, Transferrin % Saturation 26.4, Ferritin 60, Lactate Dehydrogenase 249H, Total Protein (PEP) 4.8L, Vitamin B12 Level 884, Folate > 24.0 08/28/18 18:03: Lactic Acid Level 1.4 08/28/18 18:27: Bedside Glucose (Misc Panel) 63L 08/28/18 20:22: Bedside Glucose (Misc Panel) 84 08/29/18 00:38: Bedside Glucose (Misc Panel) 80L 08/29/18 04:37: Nucleated Red Blood Cells % (auto) 0.0, Immature Platelet Fraction 13.8H, Anion Gap 8, Glomerular Filtration Rate > 60.0, Blood Urea Nitrogen 50H, Creatinine 0.96, Sodium Level 140, Potassium Level 3.9, Chloride Level 98, Carbon Dioxide Level 34H, Calcium Level 7.9L, XF-Yxe-P-Type Natriuretic Peptide 9537H, Thyroid Stimulating Hormone (TSH) 1.350 08/29/18 05:40: Blood Gas Bicarbonate Standard 26.5H, Arterial Blood pH 7.365, Arterial Blood Partial Pressure CO2 52.1H, Arterial Blood Partial Pressure O2 81.1, Arterial Blood Total CO2 30.7, Arterial Blood HCO3 29.1H, Arterial Blood Base Excess 2.4H, Arterial Blood Oxygen Saturation 95.9 CBC/BMP Laboratory Tests 08/28/18 17:07 Red Blood Count 4.86, Mean Corpuscular Volume 110.3 H, Mean Corpuscular Hemoglobin 35.2 H, Mean Corpuscular Hemoglobin Concent 31.9 L, Red Cell Distribution Width 15.3 H 08/29/18 04:37 Red Blood Count 4.84, Mean Corpuscular Volume 108.7 H, Mean Corpuscular Hemoglobin 34.5 H, Mean Corpuscular Hemoglobin Concent 31.7 L, Red Cell Distribution Width 15.4 H, Calcium Level 7.9 L Microbiology Microbiology 08/28/18 Gram Stain - Final, Resulted 08/28/18 Sputum Culture, Resulted Pending BUDDY LOZA MD Aug 29, 2018 14:31
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
[2018-08-29] MEDS: cefTRIAXone SOD 1 GM in D5W MINI-BAG PLUS 50 ML IV SCH (17:09)
[2018-08-29] MEDS: PRAVASTATIN 10 MG TAB PO SCH (20:41)
[2018-08-30] VITALS (28 sets, daily range): BP systolic 80–109; BP diastolic 45–58
[2018-08-30] MEDS ORDERED: NS 250 ML IV ONE (01:00)
[2018-08-30 05:01] LABS: HEMATOCRIT 52.1 % (42.0-52.0); HEMOGLOBIN 16.2 g/dl (13.5-17.5); MEAN CORPUSCULAR HEMOGLOBIN 34.3 pg (27.0-33.0); MEAN CORPUSCULAR HGB CONC 31.1 g/dl (32.0-36.5); MEAN CORPUSCULAR VOLUME 110.4 fl (80.0-96.0); RED BLOOD COUNT 4.72 10^6/uL (4.30-6.10); WHITE BLOOD COUNT 5.3 10^3/uL (4.0-10.0)
[2018-08-30 05:09] LABS: PLATELET COUNT, AUTOMATED 60 10^3/uL (150-450)
[2018-08-30 05:20] LABS: BLOOD UREA NITROGEN 48 MG/DL (7-18); CALCIUM LEVEL 7.8 MG/DL (8.8-10.2); CARBON DIOXIDE LEVEL 36 MEQ/L (21-32); CHLORIDE LEVEL 98 MEQ/L (98-107); CREATININE FOR GFR 0.85 MG/DL (0.70-1.30); GLOMERULAR FILTRATION RATE > 60.0 (>42); GLUCOSE, FASTING 94 MG/DL (70-100); POTASSIUM SERUM 4.1 MEQ/L (3.5-5.1); SODIUM LEVEL 137 MEQ/L (136-145)
[2018-08-30] MEDS: HEPARIN SOD (PORCINE) 5000 UNITS/ML VIAL SQ SCH ×3 (06:08→21:46)
[2018-08-30 09:28] LABS: ABG BASE EXCESS 6.3 (-2.0-2.0); ABG HCO3 36.5 MEQ/L (22.0-26.0); ABG O2 SATURATION 94.9 % (95.0-99.0); ABG PARTIAL PRESSURE O2 78.5 mmHg (75.0-100.0); ABG STANDARD HCO3 30.1 MEQ/L (22.0-26.0); ABG TOTAL CO2 38.8 MEQ/L (23.0-31.0); ABG pH (ARTERIAL) 7.292 UNITS (7.350-7.450)
[2018-08-30] MEDS: MULTIVITAMINS/MINERALS THERAP 1 TAB PO SCH (09:29)
[2018-08-30] MEDS: CETIRIZINE (ZyrTEC) 10 MG TAB PO SCH (09:29)
[2018-08-30] MEDS: PANTOPRAZOLE 40MG TAB (PROTONIX) PO SCH (09:29)
[2018-08-30 09:30] LABS: ABG PARTIAL PRESSURE CO2 77.2 mmHg (35.0-45.0)
[2018-08-30] MEDS: VITAMIN D 1,000 INTERNATIONAL UNITS TABLET PO SCH (09:30)
--- NOTE | 2018-08-30 09:51 | IPN ---
DATE: 08/29/2018 Mr. Manuel Flores was seen this day. He was sitting up in bed in no acute distress and his was at bedside. He has not been using the BiPAP machine this morning and he remains stable. He also has been off the Levophed and he has good urinary output. He appears to be stronger today and he has been less short of breath. Upon a quick look at his lateral side of the neck, it is seen that his jugular vein is not quite extended or engorged. There are no palpitations or chest pain. His pedal edema, he stated, has slightly improved. There is no report of bleeding. There is no focal manifestation. On physical examination, patient is alert and oriented, with mild shortness of breath at rest. His vital signs when I saw him this evening revealed a blood pressure of 88/54 with a pulse of 65, respiration 20-24, his maximum temperature was 99.2 degrees Fahrenheit with an oxygen saturation of 94% on 2 liters nasal cannula. Examination of the head, atraumatic. Neck is supple without extended jugular. The lung exam did not show any wheezing or crackles. The heart examination revealed irregular heart sounds without gallops. The point of maximum impulse (PMI) is displaced inferiorly and laterally. There is no rub. Abdomen is soft. Extremities reveal +1 to +2 bilateral lower leg and pedal edema. Neurological examination grossly negative for focal deficit. LABS: CBC done today revealed a WBC of 6.3, hemoglobin 16.7, hematocrit 52.6, and platelets 73,000. BMP revealed a sodium 140, potassium 3.9, chloride 98, CO2 34, BUN 50, creatinine 0.96, GFR more than 60 and fasting glucose 87 with a calcium of 7.9. Serum lactic acid is 1.4. Serum for BNP 9527. On admission, it was 11,358. IMPRESSION: 1. Congestive heart failure, acute on chronic secondary to left ventricular systolic dysfunction. Echocardiogram reported the mildly depressed Doppler left ventricular systolic function and this will be reviewed. Therefore, he is off his cardiac medications and also off Levophed. He will be monitored for now. The case will be discussed with park superintendent, Dr. Olguin. We probably should keep him on a small dose Lopressor to keep blood pressure higher and try to diurese him. His urinary output seems to be very good now. Slowly, will re-introduce his cardiac medications but his prognosis seems to be very guarded, particularly in view of his comorbid condition. He has an automatic implantable cardioverter defibrillator (AICD) for prevention of sudden cardiac and I will discuss with the team in [place] to see whether he is a candidate for upgrade of his automatic implantable cardioverter defibrillator (AICD) to a Bi V pacemaker. This might improve his symptoms. 2. Status post respiratory failure, seems to be doing well. He has been off noninvasive ventilation since this morning. 3. Thrombocytopenia, erythrocytosis with macrocytosis and this is being addressed. 4. Prerenal azotemia, stable.
[2018-08-30 10:11] LABS: HAPTOGLOBIN 65 mg/dL (34-200)
[2018-08-30] MEDS: ASPIRIN 81 MG CHEW TABLET PO SCH (14:36)
--- NOTE | 2018-08-30 15:30 | IPNPDOC ---
Subjective Date Seen The patient was seen on 08/30/18. Subjective Chief Complaint/HPI Patient seen and examined at bedside this morning. The patient was noted to have borderline blood pressure readings overnight, however remained off pressor therapy. He was given a 250 cc bolus of NS, and subsequent CVP was noted to be 17. At this time, the patient denies any new acute complaints. Objective Physical Examination General Exam: Positive: Alert, Cooperative, No Acute Distress ENT Exam: Positive: Atraumatic, Mucous membr. moist/pink Chest Exam: Positive: Diminished; Negative: Rales, Rhonchi, Wheezing Heart Exam: Positive: Rate Normal, Normal S1, Normal S2 Telemetry: Positive: Sinus Abdomen Exam: Positive: Soft; Negative: Tenderness Extremity Exam: Positive: Swelling (1+ pitting edema in the lower extremities bilaterally); Negative: Tenderness Psych Exam: Positive: Oriented x 3 A-FIB/CHADSVASC A-FIB History Current/History of A-Fib/PAF?: No Assessment /Plan Plan/VTE VTE Prophylaxis Ordered?: Yes Plan Hypercapnic Respiratory Failure Likely a combination of factors including underlying restrictive lung disease from severe kyphoscoliosis, RLL pneumonia, and tenuous volume status due to underlying CHF Patient was noted to be hypercapnic again on ABG this morning, and has been restarted on BiPAP as per pulmonary We will cont to monitor the patient Pulmonary on board, input appreciated Hx of Combined Systolic and Diastolic CHF The patient's 2D ECHO during this admission revealed improvement of his LVEF from moderate reduction (30-35% EF) in 11/2017 to normal/mildly reduced LVEF on this hospitalization with underlying Diastolic Dysfunction. However, after discussing the case with the patient's Shot Examiner Dr. Adams this morning, it appears that the LVEF may have been over-estimated. The patient remains off of diuretic therapy this AM given his low blood pressures, however his CVP was noted to be 17 this AM. If he decompensates further we will consider Lasix and Levophed/Dopamine gtt as per Cardiology The predatory animal exterminator goal remains having the patient follow up with EP as an outpatient, for evaluation of a Biventricular AICD to further optimize his cardiac function Will follow up with Cardiology recommendations Acute Kidney Injury 2/2 Intravascular Volume Depletion in the setting of Diuretic Use Serum Cr improved following discontinuation of diuretic therapy and gentle IVF Hydration We will cont to monitor the patient off of diuretic therapy at this time Elevated Troponin Markers EKG with no acute ST changes Troponins likely elevated due to demand ischemia from hypotension--It does appear that the patient has had chronically elevated troponins dating back to July of 2014 Patient denies any c/o chest pain, palpitations at this time Cont ASA, Statin Cardiology on board, will f/u with input RLL Infiltrate Possibly a contributing factor to the patient's initial presentation of SOB Sputum culture pending, Procalcitonin level pending Cont on Rocephin at this time Erythrocytosis Contributing factor includes hemoconcentration from diuretic use on admission. This has improved after gentle IVF hydration Hematology has been consulted and is working the patient up for polycythemia vera Dyslipidemia Cont Statin Hx of Prostate Ca Stage IIA Follow up as outpatient GI/DVT Prophylaxis Protonix/Heparin SC Code Status: DNR Guarded clinical condition. VS, I&O, 24H, Fishbone Vital Signs/I&O Vital Signs Date Time Temp Pulse Resp B/P (MAP) Pulse Ox O2 Delivery O2 Flow Rate FiO2 08/30/18 13:00 59 18 89/51 (64) 96 28 08/30/18 12:00 98.3 08/30/18 12:00 1.0 08/28/18 06:33 Nasal Cannula I&O- Last 24 Hours up to 6 AM 08/30/18 06:00 Intake Total 1080 ml Output Total 490 ml Balance 590 ml Laboratory Data 24H LABS Laboratory Tests 2 08/29/18 17:00: Bedside Glucose (Misc Panel) 101 08/30/18 00:57: Bedside Glucose (Misc Panel) 102 08/30/18 04:12: Nucleated Red Blood Cells % (auto) 0.0, Anion Gap 3L, Glomerular Filtration Rate > 60.0, Blood Urea Nitrogen 48H, Creatinine 0.85, Sodium Level 137, Potassium Level 4.1, Chloride Level 98, Carbon Dioxide Level 36H, Calcium Level 7.8L 08/30/18 09:11: Blood Gas Bicarbonate Standard 30.1H, Arterial Blood pH 7.292L, Arterial Blood Partial Pressure CO2 77.2*H, Arterial Blood Partial Pressure O2 78.5, Arterial Blood Total CO2 38.8H, Arterial Blood HCO3 36.5H, Arterial Blood Base Excess 6.3H, Arterial Blood Oxygen Saturation 94.9L 08/30/18 13:11: Bedside Glucose (Misc Panel) 97 CBC/BMP Laboratory Tests 08/30/18 04:12 Red Blood Count 4.72, Mean Corpuscular Volume 110.4 H, Mean Corpuscular Hemoglobin 34.3 H, Mean Corpuscular Hemoglobin Concent 31.1 L, Red Cell Distribution Width 15.3 H, Calcium Level 7.8 L Microbiology Microbiology 08/28/18 Gram Stain - Final, Resulted 08/28/18 Sputum Culture, Resulted Pending BUDDY LOZA MD Aug 30, 2018 15:30
--- NOTE | 2018-08-30 16:34 | CR ---
DATE OF CONSULTATION: 08/28/2018 REFERRING PROVIDER: Harinder Yarbrough DO REASON FOR THE CONSULTATION: Heart failure. HISTORY OF PRESENTING ILLNESS: A 73-year-old male well known by the office with a history of coronary artery disease and cardiomyopathy that was noted to be nonischemic in nature because he only has one-vessel coronary artery disease (CAD). He has a history of a moderately to severely depressed left ventricular systolic function, for which he has implantable cardioverter-defibrillator (ICD). It was implanted about 5 years ago. Since last month, he has been retaining fluids, and he has had a couple of visits to the emergency room (ER) and was given intravenous (IV) Lasix. Then, he goes home. After his most recent visit, he continues to retain fluids, and his torsemide was increased. However, it seemed that he did not respond, and he went back to the ER, and I was called in the evening of 08/28/2018 for input. Hospitalization was recommended. While in the ER, he was started on oxygen supplement; and in the morning, he was found to be obtunded and was admitted to intensive care unit (ICU) for further management and monitoring. His laboratories revealed a markedly elevated hematocrit, which he develops usually each time he is in heart failure, and hematology input was called, where they recommended phlebotomy. In the meantime, with phlebotomy , he became hypotensive, and a central lumen catheter was inserted in the right internal jugular (vein) (IJ). He was started on Levophed, and the phlebotomy was stopped after 250 mL. He also was in respiratory failure, hypercarbic, hypercapnic, and he was started on noninvasive ventilatory support. When I saw Mr. Manuel Flores in the evening of 08/28/2018, he was sitting in his bed, in no acute distress and appeared to be drowsy. He was using his noninvasive ventilation appropriately. He is able to answer to questions, and he was waiting to watch the [place] games on the television. He denies any chest pain. He was obviously short of breath and appeared to be awake and tired. There is no report of bleeding. There is no report of palpitations. His pedal edema has improved since the hospital. He has no focal manifestation. He has a cough but denies any hemoptysis or fever. There is no nausea, vomiting, diarrhea, melena, or hematemesis. He has a past medical history positive for as mentioned above for cardiomyopathy on most recent echocardiogram with left ventricular ejection fraction (LVEF) estimated at 30% to 35%, AICD implantation which is being monitored with the physicians office in [place], [place], hyperlipidemia, mild CAD, as well as history of thrombocytopenia, microcytosis, and multiple admissions in the hospital. He has limited hemoglobin and hematocrit and leukocytosis. There is no history of atrial fibrillation, transient ischemic attack (TIA)/cerebrovascular accident (CVA). His kidney function has been stable but usually deteriorates after increasing his diuretics. The patient has a history of polio with severe complications manifested by severe thoracic scoliosis, and this also has affected his lower extremities. 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 FAMILY HISTORY: Noncontributory. SOCIAL HISTORY: The patient lives with his , who is very supportive. He is a former smoker and quit in 1993. He has occasional wine. He works from home. MEDICATIONS AT HOME: - carvedilol 3.125 mg tablet in half tablet by mouth twice a day - spironolactone 25 mg tablet in half tablet by mouth daily - torsemide 10 mg tablet and three tablets daily also on: - vitamin D - calcium - aspirin 81 mg by mouth daily - cetirizine 10 mg by mouth daily - Prolia 60 mg as needed every 6 months also on: - pravastatin 10 mg by mouth nightly PHYSICAL EXAMINATION: The patient is alert and awake with moderate shortness of breath at rest. His vital signs reveal a blood pressure of 92/50 with a pulse of 62, respiration 20, and his maximum temperature was 97.5 degrees Fahrenheit, with oxygen saturation of 95% on noninvasive ventilation. Examination of the head: Atraumatic. Neck: Is supple with extended jugular. The lungs revealed minimal crackles at the bases but no wheezing. The heart examination revealed irregular heart sounds without gallops. The point of maximal impulse (PMI) is displaced inferiorly and laterally. There is no rub. I could not appreciate any murmurs. Abdomen: Soft and nontender. Extremities: Revealed +1 to +2 bilateral lower extremity edema. Neurological examination: Grossly was negative for focal deficit. LABORATORIES: Complete blood count (CBC) on 08/28/2018 revealed a WBC of 6.3, hemoglobin 19.8, hematocrit 63.5, and platelet 74,000. Repeat CBC in the evening revealed a WBC of 7.4, hemoglobin 17.1, hematocrit 53.6, and platelet 64,000. On admission, hemoglobin and hematocrit were 19.3 and 69.1, respectively. Basic metabolic profile (BMP) revealed a sodium of 137, potassium 4.7, chloride 94, CO2 41, BUN 55, creatinine 1.38, GFR 53.9, fasting glucose 126, and calcium 9.0, magnesium is 2.4. Serum troponin is 0.23, 0.30. Protein B is 11,368. Arterial blood gas (ABG) done at 10 o'clock this morning revealed a pH of 7.18 and a PCO2 of 96.6, pO2 82, and bicarbonate of 26.3. In the evening after setting noninvasive ventilation, pH increased up 7.4 with a PCO2 down to 48.6 and pO2 was 106.1. Urinalysis was normal on admission; and on 08/28/2018, there was +2 protein and presence of WBCs and RBCs. Echocardiogram on 08/27/2018 revealed a sinus rhythm with first-degree AV block and possible atrial pacemaker activity. There seemed to be findings consistent with right atrial enlargement and possible left atrial enlargement. Also noted was intraventricular conduction defect (IVCD) probably pattern. There is artifact on the baseline. IMPRESSION: Respiratory failure, acute and probably multifactorial related to underlying heart failure, metabolic alkalosis in a patient with history of polio and severe deformity of the chest wall cavity and probably underlying restrictive lung disease. This seems to be the difficulty again for Mr. Flores; and each time he presents to the hospital, he usually responds to dopamine. He usually responds to a combination of dopamine and diuretics for his heart failure, as well as ventilatory support. This time, he was markedly hypotensive and seemed to be dehydrated, and all his diuretics and cardiac medications are on hold. He was started on Levophed, and it seemed that his blood pressure is more stable, and I will continue to monitor him along with you, all his cardiac medications. He has not been having any chest pain with the Levophed, and he is not tachycardic. He had an echocardiogram done, and report is pending. I doubt he will have significant changes in his LVEF. He was recently seen by his primary and started on oxygen supplement at 1 liter per minute, and this will need to be discussed with Dr. Olguin. He might not benefit simply from oxygen supplement. He might be at risk to develop respiratory failure. Regarding his erythrocytosis, associated microcytosis and thrombocytopenia, this is being addressed by hematology/oncology. Workup is in process. He does have some underlying coronary artery disease and limited serum troponin but does not seem to be related to an acute event, and this might be related to his underlying cardiomyopathy. It was a pleasure to participate in the care of Mr. Manuel Flores for his underlying cardiac condition. I will continue to monitor him along with you. His prognosis is guarded in view of his comorbid condition, but he has been through that before in this point and has responded to treatment in the past.
--- NOTE | 2018-08-30 16:35 | IPN ---
DATE: 08/30/2018 Mr. Manuel Flores was seen earlier this morning. He was sitting up in bed in no acute distress at rest. He stated he feels better and stronger, but this morning, according to the , he was a little confused. It seemed that he was on oxygen supplement during the night, and he once again developed respiratory failure. Otherwise, he denies any chest pain, palpitations, and he thinks that his shortness of breath is stable. He continues to have pedal edema. His urine output has decreased. There is no report of bleeding. PHYSICAL EXAMINATION: Patient is alert and oriented in no acute distress at reset. His blood pressure when I saw him was 86/56 with a pulse of 57, respirations reported to be 26-28, and his maximum temperature was 98.8 degrees Fahrenheit with an oxygen of 96-97% on 1 liters nasal cannula. HEAD: Atraumatic. NECK: Supple with extended jugular. LUNGS: Did not reveal any wheezing. Minimal crackles noted. ABDOMEN: Soft. EXTREMITIES: Revealed bilateral lower extremity edema, +1 to +2. NEUROLOGIC: Negative for focal deficit. LABORATORY DATA: CBC done today revealed a WBC of 5.3, hemoglobin 16.2, hematocrit 52.1, and platelets 60,000. BMP revealed a sodium of 137, potassium 4.1, chloride 36, BUN 48, creatinine 0.85, GFR more than 60, and fasting glucose 94 with a calcium of 7.8. Telemetry revealed sinus rhythm. IMPRESSION: Mr. Manuel Flores seems to be stable from a cardiac point of view from yesterday when I saw him. His prognostic evaluation the same. Case was discussed with Dr. Olguin, and we are going to watch him today. He is going to be placed back on the noninvasive ventilation and repeat the arterial blood gas (ABG) later on today and monitor his urine output. If it does not respond, he will be started back on intravenous (IV) pressors, so we can start him on his diuretics. Will stay away from the beta keyshawn for now. Will try the furosemide first, then the spironolactone and/or the small dose of the carvedilol. It seems that he will need a bilevel positive airway pressure (BiPAP)/continuous positive airway pressure (CPAP) machine at home, according to the nurses, and I agree. He should not be using oxygen by itself because it usually depresses his and develop respiratory failure. His ABG this morning revealed a pH of 7.29 with a pCO2 of 77.2, and his pO2 was 78. It was a pleasure to participate in the care of Mr. Manuel Flores for his underlying cardiac condition. The management and the plan were discussed with Dr. Olguin as well as the patient and his .
[2018-08-30] MEDS: cefTRIAXone SOD 1 GM in D5W MINI-BAG PLUS 50 ML IV SCH (18:26)
[2018-08-30] MEDS: PRAVASTATIN 10 MG TAB PO SCH (21:46)
[2018-08-31] VITALS (16 sets, daily range): BP systolic 90–111; BP diastolic 52–66; O2SAT 95
[2018-08-31 05:14] LABS: HEMATOCRIT 48.8 % (42.0-52.0); HEMOGLOBIN 15.6 g/dl (13.5-17.5); MEAN CORPUSCULAR HEMOGLOBIN 34.1 pg (27.0-33.0); MEAN CORPUSCULAR VOLUME 106.6 fl (80.0-96.0); RED BLOOD COUNT 4.58 10^6/uL (4.30-6.10); WHITE BLOOD COUNT 4.8 10^3/uL (4.0-10.0)
[2018-08-31 05:15] LABS: PLATELET COUNT, AUTOMATED 55 10^3/uL (150-450)
[2018-08-31 05:34] LABS: BLOOD UREA NITROGEN 40 MG/DL (7-18); CALCIUM LEVEL 7.8 MG/DL (8.8-10.2); CARBON DIOXIDE LEVEL 34 MEQ/L (21-32); CHLORIDE LEVEL 101 MEQ/L (98-107); CREATININE FOR GFR 0.94 MG/DL (0.70-1.30); GLOMERULAR FILTRATION RATE > 60.0 (>42); GLUCOSE, FASTING 93 MG/DL (70-100); POTASSIUM SERUM 4.4 MEQ/L (3.5-5.1); SODIUM LEVEL 138 MEQ/L (136-145)
[2018-08-31] MEDS: HEPARIN SOD (PORCINE) 5000 UNITS/ML VIAL SQ SCH (06:02)
[2018-08-31] MEDS: VITAMIN D 1,000 INTERNATIONAL UNITS TABLET PO SCH (09:01)
[2018-08-31] MEDS: MULTIVITAMINS/MINERALS THERAP 1 TAB PO SCH (09:01)
[2018-08-31] MEDS: CETIRIZINE (ZyrTEC) 10 MG TAB PO SCH (09:01)
[2018-08-31] MEDS: PANTOPRAZOLE 40MG TAB (PROTONIX) PO SCH (09:01)
[2018-08-31 09:16] LABS: ALBUMIN 3.1 GM/DL (3.2-5.2); TOTAL PROTEIN 5.5 GM/DL (6.4-8.2)
--- NOTE | 2018-08-31 09:53 | REP ---
ABDOMEN ULTRASOUND: HISTORY: Elevated hemoglobin and hematocrit. Calcifications are present in the gallbladder consistent with cholelithiasis. The gallbladder wall measures 4.6 mm and is slightly thickened. There is fatty infiltration of the liver. A 1.5 cm hemangioma is present in the liver. There is bilateral renal atrophy. The right kidney measures 4.2 cm in transverse x 3.5 cm in AP x 8.4 cm in cephalocaudal dimensions. The left kidney measures 4.6 cm in transverse x 4.9 cm in AP x 8.9 cm in cephalocaudal dimensions. There is no hydronephrosis or mass. A mild amount of free fluid is present in the right upper quadrant. IMPRESSION: 1. Cholelithiasis. 2. Fatty infiltration of the liver. 3. 1.5 cm liver hemangioma. 4. Bilateral renal atrophy. 5. There is a mild amount of free fluid in the right upper quadrant. Electronically Signed by Zhou Gomez MD 08/31/2018 10:07 A
[2018-08-31] MEDS: ALBUTEROL SULFATE 2.5 MG/0.5 ML INH NEB SOLN NEB SCH ×3 (11:27→20:05)
--- NOTE | 2018-08-31 12:49 | IPNPDOC ---
Subjective Date Seen The patient was seen on 08/31/18. Subjective Chief Complaint/HPI Patient seen and examined at the bedside. Reports that he is feeling a little better today. His blood pressure readings have improved over the last 24 hours, and he has not required any volume resuscitation or pressor therapy. Otherwise, no acute overnight events noted. Objective Physical Examination General Exam: Positive: Alert, Cooperative, No Acute Distress ENT Exam: Positive: Atraumatic, Mucous membr. moist/pink Chest Exam: Positive: Diminished; Negative: Rales, Rhonchi, Wheezing Heart Exam: Positive: Rate Normal, Normal S1, Normal S2 Telemetry: Positive: Sinus Abdomen Exam: Positive: Soft; Negative: Tenderness Extremity Exam: Positive: Swelling (2+ pitting edema in the lower extremities bilaterally); Negative: Tenderness Psych Exam: Positive: Oriented x 3 Assessment /Plan Plan/VTE VTE Prophylaxis Ordered?: Yes Plan Hx of Combined Systolic and Diastolic CHF The patient's blood pressures have been stronger over the last 24 hrs, and thus he has not required any further volume resuscitation or pressor therapy. Consequently, it appears that the patient's urine output has also increased this morning. We will slowly re-introduce diuretic therapy, and further heart failure therapy based on the patient's hemodynamic and volume status We will also f/u with Cardiology recommendations Hypercapnic Respiratory Failure Likely a combination of factors including underlying restrictive lung disease from severe kyphoscoliosis, RLL pneumonia, and tenuous volume status due to underlying CHF We will cont to monitor the patient Pulmonary on board, input appreciated--the patient will likely require evening BiPAP therapy and Pulmonary will help set this up for us. Acute Kidney Injury 2/2 Intravascular Volume Depletion in the setting of Diuretic Use, resolved Patient was overdiuresed in the outpatient setting Blood pressure and volume status has improved, but the patient will need to be re-introduced to diureti, HF therapy. We will cont to monitor the patient and titrate medications as tolerated Elevated Troponin Markers EKG with no acute ST changes Troponins likely elevated due to demand ischemia from hypotension--It does appear that the patient has had chronically elevated troponins dating back to July of 2014 Patient denies any c/o chest pain, palpitations at this time Cont ASA, Statin Cardiology on board, will f/u with input RLL Infiltrate Possibly a contributing factor to the patient's initial presentation of SOB Sputum culture pending, Procalcitonin level pending Cont on Rocephin at this time Erythrocytosis Contributing factor includes hemoconcentration from diuretic use on admission. This has improved after gentle IVF hydration Hematology has been consulted and is working the patient up for polycythemia vera Dyslipidemia Cont Statin Hx of Prostate Ca Stage IIA Follow up as outpatient GI/DVT Prophylaxis Protonix/SCDs Code Status: DNR Guarded clinical condition. VS, I&O, 24H, Fishbone Vital Signs/I&O Vital Signs Date Time Temp Pulse Resp B/P (MAP) Pulse Ox O2 Delivery O2 Flow Rate FiO2 08/31/18 12:00 98.5 67 34 98/66 (77) 93 08/31/18 05:00 21 08/30/18 23:00 1.0 08/28/18 06:33 Nasal Cannula I&O- Last 24 Hours up to 6 AM 08/31/18 06:00 Intake Total 825 ml Output Total 550 ml Balance 275 ml Laboratory Data 24H LABS Laboratory Tests 2 08/30/18 13:11: Bedside Glucose (Misc Panel) 97 08/30/18 18:21: Bedside Glucose (Misc Panel) 71L 08/31/18 04:57: Nucleated Red Blood Cells % (auto) 0.0, Immature Platelet Fraction 15.7H, Anion Gap 3L, Glomerular Filtration Rate > 60.0, Blood Urea Nitrogen 40H, Creatinine 0.94, Sodium Level 138, Potassium Level 4.4, Chloride Level 101, Carbon Dioxide Level 34H, Calcium Level 7.8L, Total Protein 5.5L, Albumin 3.1L CBC/BMP Laboratory Tests 08/31/18 04:57 Red Blood Count 4.58, Mean Corpuscular Volume 106.6 H, Mean Corpuscular Hemoglobin 34.1 H, Mean Corpuscular Hemoglobin Concent 32.0, Red Cell Distribution Width 15.3 H, Calcium Level 7.8 L Microbiology Microbiology 08/28/18 Gram Stain - Final, Complete 08/28/18 Sputum Culture - Final, Complete Moraxella Catarrhalis BUDDY LOZA MD Aug 31, 2018 12:49
[2018-08-31] MEDS: ASPIRIN 81 MG CHEW TABLET PO SCH (14:02)
--- NOTE | 2018-08-31 17:43 | CCN ---
DATE: 08/30/2018 This morning patient was found to be hypercarbic while on oxygen only overnight. Therefore, bilevel was reinstituted. Overall, he is feeling better. He has some minimal blood-tinged urine. He denies any symptoms of chest discomfort. He does have a productive cough. Some lower extremity edema. He is awake, conversant and able to answer all questions. He has had no fevers or chills. PHYSICAL EXAMINATION: Temperature is 98.8, pulse is 67; patient had a some heart rates down to the 40s, respiratory rate is 26-28, blood pressure is 83/51 with a mean arterial pressure (MAP) of 62, oxygen saturation is 97% of 1 liter. GENERAL: Awake, alert, oriented. Affect and mood are appropriate. Nutrition, hygiene are fair. He is joking at bedside today. HEENT: Sclerae clear and anicteric. Pupils equal, react to light. Mucous membranes are moist. Jugular venous pressure is elevated. Neck is supple. No tracheal deviation. Central line is in place without surrounding erythema or exudate. CARDIAC: Regular. S1, S2, without audible murmur, rub or gallop. Distant. He does have pedal edema. PULMONARY: Altered chest thoracic cage with severe kyphoscoliosis, but lung clancy are clear to auscultation. No rales, rhonchi or wheezes. At this point in time there is no accessory muscle use. ABDOMEN: Soft, nontender, nondistended. No hepatosplenomegaly. No masses or hernia. EXTREMITIES: There is dependent lower extremity edema, dependent pedal edema. MUSCULOSKELETAL EXAM: As described above, severe thoracic kyphoscoliosis. There is muscle wasting. No evidence of joint effusion or fracture. LABORATORY EVALUATION: White blood cell count 5.3, hemoglobin of 16.2, hematocrit of 52.1 and a platelet count of 60. Sodium 137, potassium 4.1, chloride 98, bicarbonate of 36, BUN of 48, creatinine of 0.85, calcium is 7.8. Blood gas shows a pH of 7.29, pCO2 of 77.2, pAO2 of 78.5. No new imaging. IMPRESSION: 1. Hypercarbic respiratory failure from musculoskeletal disease. Will require bilevel noninvasive therapy for all forms of sleep. Oxygen is adequate on room air during the day. 2. Congestive heart failure. Close monitoring for the need for diuresis. I expect within the next couple of days, he will require diuretic therapy. Currently, his beta-keyshawn is on hold, as he has had relative bradycardia. He has had no significant tachycardia. Will continue to monitor and appreciate Dr. Adams's input to help with heart rate management. 3. Renal insufficiency. Improved. BUN is trending down with hydration. 4. Hemoconcentration. Likely from dehydration. Continues to trend down. 5. Thrombocytopenia. I agree with workup for the thrombocytopenia. Differential includes idiopathic thrombocytopenia. Ultrasound has been performed to look for splenomegaly. Hemolytic uremic syndrome (HUS) and disseminated intravascular coagulation (DIC) remain in the differential. Haptoglobin is still pending. 6. Macrocytosis. Vitamin B12 and folate have been normal. TSH is within normal range. Appreciate Dr. Bowling's input. 7. Deep venous thrombosis (DVT) prophylaxis with heparin. Will continue this as long as patient shows no signs of bleeding. MTDD
[2018-08-31] MEDS: cefTRIAXone SOD 1 GM in D5W MINI-BAG PLUS 50 ML IV SCH (19:30)
[2018-08-31] MEDS: PRAVASTATIN 10 MG TAB PO SCH (20:35)
--- NOTE | 2018-08-31 21:19 | CCN ---
DATE: 08/31/2018 Mr. Flores is sitting in a chair. His oxygen saturations ranging 95-97% on room air. He has had no tachycardia despite being off beta-keyshawn. His highest heart rate was 75. His urine output has picked up in conjunction with this mean arterial pressure. He does have lower extremity edema. Nurse reports difficulty with bilevel positive airway pressure (BiPAP) overnight as he felt that the back of his throat was dry. He had some pain over the bridge of his nose and some difficulty with drying of mucus secretions. Overall he feels "okay." There is some significant red tinge in the urine in his Curtis; therefore, we will discontinue his Curtis today. PHYSICAL EXAMINATION: Temperature is 98.2, pulse is 75, respiratory rate is 21-32, oxygen saturations 97% on room air, blood pressure is 91/60 with a mean arterial pressure of 70, up to 105/60 with a mean arterial pressure of 75. GENERAL: Patient is sitting at bedside. He is having a minimal cough. No fevers or chills. He is able to complete sentences without significant respiratory distress. HEENT: Sclerae clear and anicteric. Pupils equal, react to light. Mucous membranes are moist. Tongue is midline. Neck is supple. No tracheal deviation or mass. LYMPHATICS: No cervical, supraclavicular or axillary adenopathy. CARDIAC: Distant S1, S2 without audible murmur, rub or gallop. There is elevated jugular venous pressure and pitting lower extremity edema, slightly more than yesterday. PULMONARY: Clear to auscultation without rales, rhonchi or wheezes. There is abnormal structure because of severe thoracic kyphosis. No significant accessory muscle use. ABDOMEN: Soft, nontender, nondistended. No hepatosplenomegaly. There is some scrotal edema. EXTREMITIES: No cyanosis or clubbing. There is edema, as mentioned above. MUSCULOSKELETAL: Significantly abnormal, with restrictive physiology of the lungs. No evidence of recent fracture or joint effusion. LABORATORY EVALUATION: Shows a white blood cell count of 16.3, hemoglobin of 8.6, platelet count of 324. Complete blood count (CBC) is 4.8, hemoglobin 15.6, hematocrit of 48 with a platelet count of 55. Sodium is 138, potassium 4.4, bicarbonate is 34, BUN is 40, creatinine is 0.94. Sputum grew Moraxella. 1. Hypercarbic respiratory failure from musculoskeletal disease. Likely will require BiPAP due to chronic hypoxic hypercarbic respiratory failure from hypoventilation. There is no indication of obstructive sleep apnea. 2. Bronchitis, possible underlying pneumonia. He has been on ceftriaxone, which I started when I saw him on . This should cover Moraxella. He will require a few more days of this therapy. This may have precipitated his dehydration. 3. Thrombocytopenia. Having discolored urine. Will discontinue heparin now that his hemoglobin is closer to normal values. 4. History of congestive heart failure. Will check chest x-ray in the a.m. He has a very delicate fluid status. Currently he is on room air. Will monitor his respiratory status. However, I think within the next 24 hours, he will require diuretic therapy. I do not believe he will require pressors in order to attain this, as his ScvO2 suggested good cardiac output. 5. Bradycardia. The patient's heart rate dropped down to the 40s. Off beta-blockers. Currently holding beta blockers. If he becomes tachycardiac, he will need a reduced dose. 6. Hemoconcentration corrected with hydration. Will return patient to his low salt diet with fluid restriction and monitor for the time of need for diuretics. MTDD
--- NOTE | 2018-08-31 21:53 | IPN ---
DATE: 08/31/2018 Mr. Manuel Flores was seen earlier this morning, he was sitting in a chair in his room in intensive care unit (ICU) in no acute distress at rest and his was at bedside. He appears to be doing much better. His oxygen saturation seems to be normal even off nasal cannula. He has been also off the bilevel positive airway pressure (BIPAP) machine. His urine output has been stable. He denies any chest pain. He does cough, he is being treated for pneumonia. His pedal edema has been stable, maybe slightly increased. There is no report of palpitations. He did have some slight hematuria and the Curtis catheter was discontinued. The heparin subcutaneous is on hold. There is no report of nausea, vomiting, or diarrhea. There is no focal manifestation. He has no chest pain. His shortness of breath seems to be stable and he is more alert and awake. On physical examination, blood pressure today was this morning 97/55 with a pulse of 65, respirations reported to be 22 up to 30, and his oxygen saturation was between 91-97% on room air. He has a positive fluid balance of 350 mL for 08/30/2018. Examination of the head: Atraumatic. Neck is supple with extended external jugular. The lungs do not reveal any wheezing or crackles. The heart examination revealed irregular heart sounds without gallops. The point of maximum impulse (PMI) is displaced inferiorly and laterally. There is no rub. The abdomen is soft. Extremities revealed +2 bilateral lower leg and pedal edema. Neurological examination grossly is negative for focal deficit. LABORATORY DATA: CBC done today revealed a WBC of 4.8, hemoglobin 15.6, hematocrit 48.8, and platelets 55,000. BMP revealed a sodium of 138, potassium 4.4, chloride 101, CO2 33, BUN 40, creatinine 0.94, GFR more than 60, fasting glucose 93, and calcium 7.8. Telemetry revealed normal sinus rhythm. IMPRESSION: 1. Status post respiratory failure secondary to a combination of factors such as heart failure, probably pneumonia, in the setting of restrictive lung disease and chest deformities due to severe scoliosis. Patient has been off ventilatory support and he is being monitored. Case was discussed and the plan is to arrange a bilevel positive airway pressure (BIPAP) mask for him to be going home. 2. Decompensated congestive heart failure, secondary to left ventricular systolic dysfunction. Patient has an automatic implantable cardioverter defibrillator (AICD) for prevention of sudden cardiac . His diuretics, the torsemide and spironolactone, have been on hold. His beta keyshawn/carvedilol also has been on hold because he was hypotensive on admission. Sometime later today or tomorrow, he will be started on a small dose of his torsemide or furosemide. 3. History of coronary artery disease. Stable. Single vessel. 4. Hyperlipidemia, on a statin. 5. Pneumonia and this is being addressed on IV antibiotics. 6. Thrombocytopenia and the subcutaneous heparin is now on hold. Patient also has underlying erythrocytosis and microcytosis, and he is being evaluated by hematology. This hospitalization, he was phlebotomized for about 250 mL, it was stopped because of hypotension. It was a pleasure to participate in the care of Mr. Manuel Flores for his underlying cardiac condition. Case was discussed earlier today with Dr. Olguin as well as patient and his , and his hospitalist. I will have Dr. Delarosa seeing him for me as needed for the next couple of days.
[2018-09-01] VITALS (14 sets, daily range): BP systolic 91–113; BP diastolic 52–66; O2SAT 95
[2018-09-01 05:08] LABS: HEMATOCRIT 50.4 % (42.0-52.0); HEMOGLOBIN 15.8 g/dl (13.5-17.5); MEAN CORPUSCULAR HEMOGLOBIN 34.3 pg (27.0-33.0); MEAN CORPUSCULAR HGB CONC 31.3 g/dl (32.0-36.5); MEAN CORPUSCULAR VOLUME 109.6 fl (80.0-96.0); WHITE BLOOD COUNT 4.4 10^3/uL (4.0-10.0)
[2018-09-01 05:09] LABS: PLATELET COUNT, AUTOMATED 55 10^3/uL (150-450)
[2018-09-01 05:39] LABS: BLOOD UREA NITROGEN 34 MG/DL (7-18); CARBON DIOXIDE LEVEL 36 MEQ/L (21-32); CHLORIDE LEVEL 97 MEQ/L (98-107); CREATININE FOR GFR 1.02 MG/DL (0.70-1.30); GLOMERULAR FILTRATION RATE > 60.0 (>42); GLUCOSE, FASTING 84 MG/DL (70-100); SODIUM LEVEL 138 MEQ/L (136-145)
[2018-09-01] MEDS: ALBUTEROL SULFATE 2.5 MG/0.5 ML INH NEB SOLN NEB SCH ×4 (07:53→19:38)
[2018-09-01] MEDS: VITAMIN D 1,000 INTERNATIONAL UNITS TABLET PO SCH (08:11)
[2018-09-01] MEDS: PANTOPRAZOLE 40MG TAB (PROTONIX) PO SCH (08:11)
[2018-09-01] MEDS: CETIRIZINE (ZyrTEC) 10 MG TAB PO SCH (08:11)
[2018-09-01] MEDS: MULTIVITAMINS/MINERALS THERAP 1 TAB PO SCH (08:11)
[2018-09-01 08:37] LABS: ABG BASE EXCESS 3.1 (-2.0-2.0); ABG HCO3 29.2 MEQ/L (22.0-26.0); ABG O2 SATURATION 96.7 % (95.0-99.0); ABG PARTIAL PRESSURE CO2 50.1 mmHg (35.0-45.0); ABG PARTIAL PRESSURE O2 86.9 mmHg (75.0-100.0); ABG STANDARD HCO3 27.2 MEQ/L (22.0-26.0); ABG TOTAL CO2 30.8 MEQ/L (23.0-31.0); ABG pH (ARTERIAL) 7.384 UNITS (7.350-7.450)
--- NOTE | 2018-09-01 08:46 | CCN ---
DATE: 08/29/2018 Mr. Flores is seen in the ICU. He reports that he is doing better today. He was on BiPap all night and is now tolerating being off the Bi-Pap however he does have some oxygen desaturations if he dozes off again. Therefore he was placed on oxygen 2 liters by nasal cannula. Denies fevers or chills overnight. Urine output over the last hour was 20 mL and he had good urine output throughout the night. He states that his breathing has been good without any significant shortness of breath. He is on Levophed for hypotension which is being titrated down. He was given fluid boluses for dehydration and his diuretic and antihypertensives have been held. An echocardiogram is pending. PHYSICAL EXAMINATION: Temperature 99.1, pulse 65, blood pressure 103/54 with a MAP of 71, respiratory rate 20, pulse ox 98% on 2 liters. Urine output is 20 mL over the past hour. Patient is in sinus rhythm on the monitor. PHYSICAL EXAMINATION: GENERAL: Patient is alert and oriented. He speaks in complete sentences. He is able to tell me where he is and what the date is. HEENT: Pupils are reactive to light. Moist mucous membranes. Mallampati 4. Tongue is midline. NECK: Supple and no cervical lymphadenopathy. Trachea appears midline. PULMONARY: Breath sounds are decreased but without rales, rhonchi, or wheezes. There is no dullness to percussion. 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 CARDIAC: Regular rate and rhythm with no obvious murmurs. No JVD. ABDOMEN: Positive bowel sounds soft and nontender. EXTREMITIES: Patient has significant muscle wasting. There is significant malformation from history of polio. Patient does have some dependant pedal edema. LABS: WBC 6.3, hemoglobin 16.7, hematocrit 52.6, platelets 73, sodium 148, potassium 3.9, chloride 98, carbon dioxide 34, BUN 50, creatinine 0.96, glucose 87, calcium 7.9, BNP is 9537, TSH 1.350, ABG pH 7.365, pcO2 52.1, Po2 81.1. ASSESSMENT AND PLAN: 1. Hypotension. Likely secondary to dehydration. Patient did receive IV fluid boluses night. His diuretics have been held and his antihypertensives have been held. He is currently on Levophed which is being titrated down. Blood pressure is continuing to be monitored. He is making urine. This will be continued to be monitored. An echocardiogram has been ordered and is pending. 2. Hypercarbic respiratory failure. Improvements in Pc02. This is decreased to 52.1 from his initial CO2 on admission. He has been receiving a Bi-Pap throughout the night. He is currently on 2 liters by nasal cannula. He may require going back on Bi-Pap for sleep but we will monitor this and see if Bi-Pap needs to be reinitiated. 3. Renal failure. Patient's BUN is still elevated at 50 which is decreased. His creatinine has improved to 0.96. He had received IV fluid boluses last night. He is making urine. Continue to monitor closely. 4. Elevated hematocrit. It was felt that at least part of his elevated hematocrit was secondary to dehydration. Hematocrit has improved to 52.6 which is down from 63 yesterday. Because of the elevated hematocrit he was placed on thromboembolic prophylaxis with Heparin. There is concern of some thrombocytopenia however his platelet count is currently 73 and plans are to continue Heparin unless his platelets fall below 50. He does remain on aspirin. We will continue to monitor. 5. GI prophylaxis. Patient has started on Protonix and a regular diet has been initiated. 6. Cough with sputum production. Possibility of sepsis has not been ruled out. He was started on empiric IV ceftriaxone. A sputum culture has been collected and is pending. Calcitonin level is currently pending as well. We will continue to monitor and consider de-escalation of antibiotic treatment if and when appropriate. 7. Advanced directives. Dr. Olguin had a discussion with the patient concerning advanced directive and spent approximately 15 minutes talking to the patient and his about advanced directives. MOLST form has been filled out. Patient does not want cardiovascular resuscitation but would be interested in a trial of intubation if needed. Total critical care time: 45 minutes with 15 minutes of that concerning discussion of advanced directive.
--- NOTE | 2018-09-01 09:04 | REP ---
PORTABLE CHEST: AP portable view of the chest was performed. COMPARISON: 08/28/2018 There appear to be increasing bilateral infiltrates and possible effusions. Heart appears enlarged. Severe scoliosis is again noted. A left single lead pacemaker is again noted. The previously noted right central venous catheter is not visualized. Electronically Signed by Abhi Rao MD 09/01/2018 04:20 P
--- NOTE | 2018-09-01 09:36 | CCN ---
DATE OF SERVICE: 09/01/2018 Mr. Flores is seen in the intensive care unit (ICU). He reports no significant new issues. Denies fevers or chills. He states his breathing has been improving. He has been coughing up more mucus. The patient has been using bilevel at night time. This morning he was placed on 1 liter by nasal cannula and then was placed on room air and was maintaining good sats on room air when awake. PHYSICAL EXAMINATION: Vitals: Temperature 98.1, pulse 68, respiratory rate 20, blood pressure is 113/60, pulse ox 100% on 1 liter subsequent to that 95% on room air. General: The patient is alert and oriented times three. He speaks in complete sentences. HEENT: Head is normocephalic, atraumatic. Sclerae is clear. Pupils reactive. Moist mucous membranes. Tongue is midline. Neck: Neck is supple. No cervical lymphadenopathy. No tracheal deviation. No obvious jugular venous distention (JVD). Cardiac: Regular rate and rhythm. S1-S2 with no murmurs. Pulmonary: Clear to auscultation bilaterally. No wheezes, rales, rhonchi or crackles. Severe thoracic kyphosis noted. No significant accessory muscle use. Abdomen: Positive bowel sounds, soft, nontender. Extremities: Bilateral lower extremity edema. LABORATORY DATA: ABG pH 7.384, pCO2 50.1, pO2 is 86.9, HCO3 29.2, WBC 4.4, hemoglobin 15.8, hematocrit is 50.4, platelets 55. Sodium 138, potassium 5.0, chloride 97, carbon dioxide 36, BUN 34, creatinine 1.02, glucose 84, calcium 8.0. ASSESSMENT AND PLAN: 1. 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 The patient has been requiring BiPap for sleep. He will likely require BiPap based on hypoventilation from restrictive lung disease from his body habitus. There is no evidence of obstructive sleep apnea. Plan today is to try to convert him to tabletop. He will likely need BiPap at discharge again based on his hypoventilation from his restrictive lung disease based on his body habitus. 2. Systolic congestive heart failure. The patient does have a history of systolic congestive heart failure. He does have lower extremity edema but does appear slightly dry again. His carbon dioxide is trending up along with his BUN and creatinine. His hematocrit is also up slightly from yesterday as well. We have been considering when to restart his diuretics and given the labs suggesting that he is more dry today. We will try to elevate his legs for at least a couple hours today with hopes that that does redistribute his fluids. We do not feel he is ready to start diuresis at this point. We will continue to monitor his fluid status very closely. 3. Bronchitis/possible underlying pneumonia. The patient has been on ceftriaxone 1 gram IV daily since . His sputum did grow out Moraxella catarrhalis. Possibly his respiratory infection precipitated his dehydration. Plan will be to continue ceftriaxone and to likely stop it tomorrow. 4. Thrombocytopenia. The patient's platelets have remained stable at 55. He still does have some blood tinged urine. His Curtis was removed yesterday and his heparin was discontinued yesterday. Continue to monitor.
--- NOTE | 2018-09-01 10:03 | CCN ---
DATE OF SERVICE: 08/30/2018 SUBJECTIVE: Patient had low urine output overnight with soft blood pressures. The hospital service had provided the patient with a 250 mL bolus. His central venous pressure (CVP) is now up to 17 from the last measurement of 12. I believe he is bordering on requiring his diuretics. Last evening, he remained on oxygen at 1 liter overnight. Oxygen saturations remained 96%. Will continue to monitor for the need for oxygen therapy. There is some question whether or not he may have ventilatory failure during sleep because of his lung restriction. Therefore, arterial blood gas will be obtained this morning. He has had no fever, chills and he is eating well during the day. There has been minimal amounts of heme in his urine likely from Curtis trauma. Overall, the urine is mostly clear. PHYSICAL EXAM: Temperature is 98.8, pulse is 67, respiratory rate is 22-28. Blood pressures is 83/51 with a mean arterial pressure of 62; now off vasopressor therapy he is ranging 60-65. Traditionally the patient carries a low blood pressure. Oxygen saturation 96% on 1 liter. Intake and output since 08/28/2018 suggest that he 2 liters net positive. General: Awake, alert, oriented. Affect and mood are appropriate. He is able to speak full sentences without pausing for dyspnea. HEENT: Sclerae are clear and anicteric. Pupils equal, round and reactive to light. Mucous membranes are moist. Tongue is midline. Neck is supple. No tracheal deviation. There is elevated jugular venous pressure. Central line is in place without surrounding erythema or exudate. Pulmonary: Fairly good breath sounds bilaterally, clear vesicular breath sounds despite his altered anatomy. No rales, rhonchi or wheezes. No dullness to percussion. Significant thoracic kyphoscoliosis. Cardiac: Distant S1, S2, without audible murmur, rub or gallop. Currently in sinus rhythm. He does have pedal edema. He has minimal scrotal edema. No sacral edema. Abdomen: Soft, nontender, nondistended. No hepatosplenomegaly. No masses or hernia. Extremities: No cyanosis or clubbing. He does have pedal edema with chronic plantar flexion. 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 No evidence of joint effusions. No evidence of recent fracture. Laboratory evaluation this morning shows a white blood cell count of 5.3, hematocrit is down to 52.1 with a hemoglobin of 16.2 and platelet count is at 60. Arterial blood gas is pending for this morning. Chemistry panel shows a sodium 137, potassium 4.1, chloride of 98, bicarbonate is up to 36, BUN is down to 48, creatinine is at 0.85 with a fasting glucose of 94. Sputum culture is pending and shows few gram-positive rods. JAK2 mutation is pending. No new imaging for today. Echocardiogram showed a fairly technically difficult study read as mildly reduced LV systolic function and degenerative aortic valve with no significant stenosis, trace mitral insufficiency, and at the time of the echocardiogram high central venous pressures suggesting at least moderate pulmonary hypertension. IMPRESSION: 1. Hypercarbic respiratory failure. Will obtain arterial blood gas. I believe this is likely due to his inability compensate for his metabolic alkalosis from contraction. However, I cannot rule out the possibility of ventilatory failure due to his restrictive physiology. We will therefore obtain an arterial blood gas this morning to ensure that he is able to compensate now that he is better hydrated. 2. Hypotension. Relatively low but close to his normal. He is making good urine. We are currently at the stage where he may start to require diuretics. Therefore, he will be closely monitored in regards to his fluid status. 3. Congestive heart failure. His heart rate remains in the 60s despite not being on beta-blockers. Therefore, at this point in time would recommend staying off beta-blockers as his heart rate is controlled and they may contribute to further hypotension. However, will defer this to the primary field checker. 4. Hemoconcentration. Most likely secondary to diuretic therapy, dehydration possibility of chronic low level hypoxia. However, at this point in time he is only requiring 1 liter of oxygen. JAK2 mutation is being researched for the possibility of polycythemia vera, although this is likely low. 5. Threat of thrombocytopenia, unclear etiology. Hematology currently has a differential diagnosis which has included a mean thrombocytopenia. Previously, patient was too critical to obtain abdominal ultrasound and I believe this could be pursued now. There is also in the differential the possibility of drug-induced thrombocytopenia, although rare, along with HUS DIC. Vitamin B12 and folate levels have been tested and been normal range. Haptoglobin is pending. 6. Possible respiratory infection. On ceftriaxone. Sputum cultures pending. Will discontinue after a 5-day course or low calcitonin, whichever returns first. 7. Gastrointestinal (GI) prophylaxis. On Protonix. This could be discontinued as long as patient is tolerating a good diet. 8. Deep venous thrombosis (DVT) prophylaxis. Remains on heparin. High risk for thromboembolic disease. As well as platelet counts remain above 58 would continue heparin therapy.
--- NOTE | 2018-09-01 11:43 | IPNPDOC ---
Subjective Date Seen The patient was seen on 09/01/18. Subjective Chief Complaint/HPI Patient seen and examined at the bedside. He tells me that he has had a difficult time sleeping with the BiPAP mask on, but otherwise denies any acute complaints. Objective Physical Examination General Exam: Positive: Alert, Cooperative, No Acute Distress ENT Exam: Positive: Atraumatic, Mucous membr. moist/pink Chest Exam: Positive: Diminished; Negative: Rales, Rhonchi, Wheezing Heart Exam: Positive: Rate Normal, Normal S1, Normal S2 Telemetry: Positive: Sinus Abdomen Exam: Positive: Soft; Negative: Tenderness Extremity Exam: Positive: Swelling (2+ pitting edema in the lower extremities bilaterally); Negative: Tenderness Psych Exam: Positive: Oriented x 3 Assessment /Plan Plan/VTE VTE Prophylaxis Ordered?: Yes Plan Hx of Combined Systolic and Diastolic CHF The patient's blood pressures have been stronger over the last 48+ hrs, and thus he has not required any further volume resuscitation or pressor therapy. We will slowly re-introduce diuretic therapy, and further heart failure therapy based on the patient's hemodynamic and volume status, as well as his renal function We will also f/u with Cardiology recommendations Hypercapnic Respiratory Failure Likely a combination of factors including underlying restrictive lung disease, severe kyphoscoliosis, RLL pneumonia, and tenuous volume status due to underlying CHF We will cont to monitor the patient Pulmonary on board, input appreciated--the patient will likely require evening BiPAP therapy and Pulmonary will help set this up for us. Acute Kidney Injury 2/2 Intravascular Volume Depletion in the setting of Diuretic Use, resolved Patient was overdiuresed in the outpatient setting Blood pressure and volume status has improved, but the patient will need to be re-introduced to diuretic, HF therapy. We will cont to monitor the patient and titrate medications as tolerated Elevated Troponin Markers EKG with no acute ST changes Troponins likely elevated due to demand ischemia from hypotension--It does appear that the patient has had chronically elevated troponins dating back to July of 2014 Patient denies any c/o chest pain, palpitations at this time Cont ASA, Statin Cardiology on board, will f/u with input RLL Infiltrate Possibly a contributing factor to the patient's initial presentation of SOB Sputum culture notable for moxarella Cont on Rocephin at this time Erythrocytosis Contributing factor includes hemoconcentration from diuretic use on admission. This has improved after gentle IVF hydration Hematology has been consulted and is working the patient up for polycythemia vera Dyslipidemia Cont Statin Hx of Prostate Ca Stage IIA Follow up as outpatient GI/DVT Prophylaxis Protonix/SCDs Code Status: DNR Guarded clinical condition. VS, I&O, 24H, Fishbone Vital Signs/I&O Vital Signs Date Time Temp Pulse Resp B/P (MAP) Pulse Ox O2 Delivery O2 Flow Rate FiO2 09/01/18 10:00 62 20 104/59 (74) 98 28 09/01/18 08:00 98.1 1.0 09/01/18 00:10 BIPAP/CPAP I&O- Last 24 Hours up to 6 AM 09/01/18 06:00 Intake Total 725 ml Output Total 710 ml Balance 15 ml Laboratory Data 24H LABS Laboratory Tests 2 09/01/18 04:23: Nucleated Red Blood Cells % (auto) 0.0, Anion Gap 5L, Glomerular Filtration Rate > 60.0, Blood Urea Nitrogen 34H, Creatinine 1.02, Sodium Level 138, Potassium Level 5.0, Chloride Level 97L, Carbon Dioxide Level 36H, Calcium Level 8.0L 09/01/18 08:31: Blood Gas Bicarbonate Standard 27.2H, Arterial Blood pH 7.384, Arterial Blood Partial Pressure CO2 50.1H, Arterial Blood Partial Pressure O2 86.9, Arterial Blood Total CO2 30.8, Arterial Blood HCO3 29.2H, Arterial Blood Base Excess 3.1H, Arterial Blood Oxygen Saturation 96.7 CBC/BMP Laboratory Tests 09/01/18 04:23 Red Blood Count 4.60, Mean Corpuscular Volume 109.6 H, Mean Corpuscular Hemoglobin 34.3 H, Mean Corpuscular Hemoglobin Concent 31.3 L, Red Cell Distribution Width 15.8 H, Calcium Level 8.0 L Microbiology Microbiology 08/28/18 Gram Stain - Final, Complete 08/28/18 Sputum Culture - Final, Complete Moraxella Catarrhalis BUDDY LOZA MD Sep 01, 2018 11:43
[2018-09-01] MEDS: cefTRIAXone SOD 1 GM in D5W MINI-BAG PLUS 50 ML IV SCH (17:21)
--- NOTE | 2018-09-01 21:27 | IPN ---
DATE: 08/31/2018 REASON FOR VISIT: The patient was seen on consultation earlier this week, and this is a followup brief visit. Patient is being evaluated hematologically for polycythemia, macrocytosis, and thrombocytopenia. All of these have been intermittently present for several years, especially the low platelets and the hematocrit elevation. The mean corpuscular volume (MCV) has been rising consistently for several years now. The patient's is in the room, and the patient's nurse, Hallie, is also in the room. The patient just had his Curtis catheter removed, and he is off the heparin now, according to LINETTE Sterling. tells me the patient is looking much better to her also, and the patient is talking today. 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 Subjectively, Mr. Flores states he is feeling much better. He is tired, naturally, but better. Denies any major complaints right now. He is happy the Curtis is out. OBJECTIVE: The patient is awake, alert, oriented. Blood pressure 91/60, respiratory rate 32 per minute, pulse oximetry 91% on room air, afebrile. Conjunctivae pink. Sclerae do not appear icteric. Pupils equal, reacting to light. Eyes are a little proptotic. Buccal mucosa is unremarkable. Tongue does not show any candidiasis. LUNGS: Emphysematous and severe kyphoscoliosis of the dorsal spine. Old scar seen in the dorsal spine area. Few crepitations at the right base, but, again, because of the abnormal anatomy of the body, it is difficult to say what is really going on. CARDIOVASCULAR SYSTEM: Soft diastolic murmur at the apex. No gallops or rubs. Rhythm was regular. ABDOMEN: Soft, sitting up in a chair. Not easy to evaluate for hepatosplenomegaly, but there is no guarding, rigidity, or tenderness. The patient still has pedal edema, especially on his feet. The dorsum of his feet are like bread, puffed up. The edema tracks all the way up to the sacrum, and there is literally peau d'orange on the left gluteal area; that much edema patient has. The hands, the knee caps all still purple in discoloration, and fingernails are blue, but according to the this is much better today. The patient has venous access in the forearm on the right with a little bit of dried blood around it. INTERIM STUDIES: Hematocrit today is 48.8, and the patient is off his diuretics. White count 4.8, platelets 55,000, MCV is down to 106.6 from 110 three days ago. Haptoglobin 65. LDH was just at normal at 249. Normal for the lab here is up to 241; that could have been just a lab drawn issue. GFR still more than 60 mL per minute. Calcium low at 7.8, total protein 5.5, albumin 3.1. NT-proBNP 9537. TSH 1.35. B12 of 884. Folate more than 24. These are all labs from this admission. Chest x-ray from 08/28/2018 shows possible pneumonic infiltrate, right lung base, with quite possible effusion. Cannot exclude the effusion. The heart was enlarged, and there was severe right thoracic scoliosis. A single-lead pacemaker was seen again along with a right central venous catheter with the tip in the superior vena cava (SVC). No pneumothorax. Ultrasound of the abdomen was done last night, 08/30/2018, and it shows cholelithiasis, fatty infiltration of the liver. Gallbladder wall is 4.6 mm, slightly thickened. There is a 1.5 cm hemangioma in the liver. Bilateral renal atrophy is seen. Right kidney only measures 4.2 x 3.5 cm x 8.4 cm, and the left kidney measures 4.6 x 4.9 x 8.9 cm. No hydronephrosis or mass seen. Mild amount of free fluid in the right upper quadrant. Unfortunately, no mention of the spleen, which is one of the big reasons we ordered the ultrasound. Will have to talk to Dr. Zhou Gomez to give us an addendum about the spleen. IMPRESSION: Clinically, Mr. Flores is definitely improved dramatically. He is sitting around today without any oxygen on, which is amazing. The patient's hematocrit has come down significantly in the 48 range. The platelets are still low but stable, and the macrocytosis also, for some reason, is improved by three points. We have not found evidence of hemolysis or hypothyroidism to explain the macrocytosis. B12 and folate deficiency have also been ruled out. B1 is still pending. Liver disease is a possibility based on the ultrasound. The thrombocytopenia as yet is unexplained, unless it is infection related or medication related. We are waiting to see if the patient has splenomegaly on ultrasound, we have asked Dr. Gomez to comment on it.Clinically, one does not feel an enlarged spleen. Have had a long talk with the patient and the today that these are the possibilities. We are waiting on the JAK2 mutation as part of the workup for the polycythemia, which most likely was secondary to the patient's lung issues and hemoconcentration. Sometimes we do need to do a bone marrow evaluation, if we did not get adequate answers, then we would come back and ask Mr. Flores's permission for the bone marrow test as an outpatient. The patient has never seen the medical van driver in [place] but was supposed to be seeing Dr. Sj Jon, next month. The patient's says now having met us the group in [facility], she did not want to drive him all the way up to [place], i did clarify that i am only the [facility] MD so if Mr. Flores requires FUP then will try and hook the patient up with Dr. Cuevas or Dr. Marcos as an outpatient on the three hematological issues. We will continue to follow Mr. Flores, peripherally, as an inpatient. cc: Dr. Shiela Shi.
[2018-09-01] MEDS: PRAVASTATIN 10 MG TAB PO SCH (21:45)
[2018-09-02] VITALS (8 sets, daily range): BP systolic 92–105; BP diastolic 53–71
[2018-09-02 05:40] LABS: HEMATOCRIT 49.9 % (42.0-52.0); HEMOGLOBIN 15.5 g/dl (13.5-17.5); MEAN CORPUSCULAR HEMOGLOBIN 33.9 pg (27.0-33.0); MEAN CORPUSCULAR HGB CONC 31.1 g/dl (32.0-36.5); MEAN CORPUSCULAR VOLUME 109.2 fl (80.0-96.0); RED BLOOD COUNT 4.57 10^6/uL (4.30-6.10); WHITE BLOOD COUNT 4.3 10^3/uL (4.0-10.0)
[2018-09-02 05:46] LABS: PLATELET COUNT, AUTOMATED 57 10^3/uL (150-450)
[2018-09-02 06:01] LABS: BLOOD UREA NITROGEN 33 MG/DL (7-18); CALCIUM LEVEL 7.8 MG/DL (8.8-10.2); CARBON DIOXIDE LEVEL 37 MEQ/L (21-32); CHLORIDE LEVEL 98 MEQ/L (98-107); CREATININE FOR GFR 0.77 MG/DL (0.70-1.30); GLOMERULAR FILTRATION RATE > 60.0 (>42); GLUCOSE, FASTING 82 MG/DL (70-100); SODIUM LEVEL 138 MEQ/L (136-145)
[2018-09-02] MEDS: ALBUTEROL SULFATE 2.5 MG/0.5 ML INH NEB SOLN NEB SCH ×4 (07:15→19:33)
[2018-09-02] MEDS: VITAMIN D 1,000 INTERNATIONAL UNITS TABLET PO SCH (08:30)
[2018-09-02] MEDS: MULTIVITAMINS/MINERALS THERAP 1 TAB PO SCH (08:30)
[2018-09-02] MEDS: CETIRIZINE (ZyrTEC) 10 MG TAB PO SCH (08:30)
[2018-09-02] MEDS: PANTOPRAZOLE 40MG TAB (PROTONIX) PO SCH (08:30)
[2018-09-02] MEDS: TORSEMIDE 10 MG TABLET PO SCH (09:51)
[2018-09-02 10:48] LABS: ALBUMIN 3.08 GM/DL (3.29-5.55); ALBUMIN % 64.2 % (55.8-66.1); ALPHA-1-GLOBULIN % 4.8 % (2.9-4.9); ALPHA-1-GLOBULINS 0.23 GM/DL (0.17-0.41); ALPHA-2-GLOBULINS 0.45 GM/DL (0.42-0.99); ALPHA-2-GLOBULINS % 9.4 % (7.1-11.8); BETA-1-GLOBULINS 0.29 GM/DL (0.28-0.60); BETA-2-GLOBULINS 0.22 GM/DL (0.19-0.55); BETA-2-GLOBULINS % 4.6 % (3.2-6.5); GAMMA GLOBULINS 0.53 GM/DL (0.65-1.58)
--- NOTE | 2018-09-02 11:18 | IPNPDOC ---
Subjective Date Seen The patient was seen on 09/02/18. Subjective Chief Complaint/HPI Patient seen and examined at the bedside. He reports that he is feeling better this morning, and notes that his respiratory status is back to its baseline. Denies any acute complaints of chest pain, palpitations, abdominal pain, or any nausea/vomiting/diarrhea. Objective Physical Examination General Exam: Positive: Alert, Cooperative, No Acute Distress ENT Exam: Positive: Atraumatic, Mucous membr. moist/pink Chest Exam: Positive: Diminished; Negative: Rales, Rhonchi, Wheezing Heart Exam: Positive: Rate Normal, Normal S1, Normal S2 Telemetry: Positive: Sinus Abdomen Exam: Positive: Soft; Negative: Tenderness Extremity Exam: Positive: Swelling (2+ pitting edema in the lower extremities bilaterally); Negative: Tenderness Psych Exam: Positive: Oriented x 3 A-FIB/CHADSVASC A-FIB History Current/History of A-Fib/PAF?: No Assessment /Plan Plan/VTE VTE Prophylaxis Ordered?: Yes Plan Hx of Combined Systolic and Diastolic CHF The patient's blood pressure has remained stable and his renal function is also stable this AM. We will start the patient on a low dose of Torsemide this AM at 10mg and assess for the patient's response. We will also f/u with Cardiology recommendations Hypercapnic Respiratory Failure Likely a combination of factors including underlying restrictive lung disease, severe kyphoscoliosis, RLL pneumonia, and tenuous volume status due to underlying CHF We will cont to monitor the patient Pulmonary on board, input appreciated--the patient will require evening BiPAP therapy and Pulmonary will help set this up for us. Acute Kidney Injury 2/2 Intravascular Volume Depletion in the setting of Diuret ic Use, resolved Patient was overdiuresed in the outpatient setting Currently we are re-introducing his diuretic meds/HF therapy in an effort to better volume optimize him Elevated Troponin Markers EKG with no acute ST changes Troponins likely elevated due to demand ischemia from hypotension--It does appear that the patient has had chronically elevated troponins dating back to July of 2014 Patient denies any c/o chest pain, palpitations at this time Cont ASA, Statin Cardiology on board, will f/u with input RLL Infiltrate Possibly a contributing factor to the patient's initial presentation of SOB Sputum culture notable for moxarella Cont on Rocephin at this time Erythrocytosis Contributing factor includes hemoconcentration from diuretic use on admission. This has improved after gentle IVF hydration Hematology has been consulted and is working the patient up for polycythemia vera Thrombocytopenia of unclear etiology Heparin SC for DVT prophylaxis and ASA held No indication for platelet transition at this time Heme/Onc on board and working the patient up--he will need to follow up as an outpatient for further workup Dyslipidemia Cont Statin Hx of Prostate Ca Stage IIA Follow up as outpatient GI/DVT Prophylaxis Protonix/SCDs Functional conditioning I did offer the patient a physical therapy/occupational therapy consultation for functional optimization while the patient is here. The patient and have declined this request. Risks, benefits, and alternative options discussed at length, and they have verbalized understanding of the same. Keeping the patient up in a chair and out of bed encouraged with staff supervision. Code Status: DNR Guarded clinical condition. Disposition-the patient will be transferred to PCU status today. Pending continued clinical improvement. VS, I&O, 24H, Fishbone Vital Signs/I&O Vital Signs Date Time Temp Pulse Resp B/P (MAP) Pulse Ox O2 Delivery O2 Flow Rate FiO2 09/02/18 09:46 75 105/64 (78) 09/02/18 08:00 97.6 22 95 09/01/18 21:00 1.0 09/01/18 10:00 28 09/01/18 00:10 BIPAP/CPAP I&O- Last 24 Hours up to 6 AM 09/02/18 06:00 Intake Total 1035 ml Output Total 680 ml Balance 355 ml Laboratory Data 24H LABS Laboratory Tests 2 09/02/18 04:58: Nucleated Red Blood Cells % (auto) 0.0, Immature Platelet Fraction 19.7H, Anion Gap 3L, Glomerular Filtration Rate > 60.0, Blood Urea Nitrogen 33H, Creatinine 0.77, Sodium Level 138, Potassium Level 5.0, Chloride Level 98, Carbon Dioxide Level 37H, Calcium Level 7.8L CBC/BMP Laboratory Tests 09/02/18 04:58 Red Blood Count 4.57, Mean Corpuscular Volume 109.2 H, Mean Corpuscular Hemoglobin 33.9 H, Mean Corpuscular Hemoglobin Concent 31.1 L, Red Cell Distribution Width 15.9 H, Calcium Level 7.8 L Microbiology Microbiology 08/28/18 Gram Stain - Final, Complete 4/25/19 Sputum Culture - Final, Complete Moraxella Catarrhalis BUDDY LOZA MD Sep 02, 2018 11:18
--- NOTE | 2018-09-02 11:48 | CCN ---
DATE OF SERVICE: 09/02/2018 Mr. Flores is seen in the intensive care unit (ICU). He continues to show improvement. He denies any new issues. Denies any fevers or chills. He states his breathing has been improving. He has been using bilevel at night and during the day he is tolerating room air. He requires bilevel for hypoventilation from restrictive lung disease from his body habitus, history of polio and scoliosis. He has been maintaining good sats while on room air while awake. PHYSICAL EXAMINATION: VITALS: Temperature 97.6, pulse 75, respiratory rate 22, blood pressure is 105/64, pulse ox 95% on room air. GENERAL: Patient is alert and oriented times three. He speaks in complete sentences. He is sitting up in a chair, with his feet elevated. HEENT: Head is normocephalic, atraumatic. Sclera is clear. Pupils reactive. Moist mucous membranes. Tongue is midline. NECK: Neck is supple. No cervical lymphadenopathy. No obvious jugular venous distention (JVD). No tracheal deviation. CARDIAC: Regular rate and rhythm. S1 and S2 with no murmurs. PULMONARY: Clear to auscultation bilaterally. No wheezes, rales, rhonchi or crackles. No accessory muscle use. Severe thoracic kyphoscoliosis noted. ABDOMEN: Positive bowel sounds. Soft, nontender. No obvious hepatosplenomegaly. EXTREMITIES: Patient has 1+ bilateral lower extremity edema. LABORATORY DATA: WBC 4.3, hemoglobin 15.5, hematocrit 49.9, platelets 57. Sodium 138, potassium 5.0, chloride 98, carbon dioxide 37, BUN 33, creatinine 0.77, glucose 82, calcium 7.8. ASSESSMENT AND PLAN: 1. 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 The patient has been requiring BiPAP for sleep and will likely require BiPAP for home use given his hypoventilation from restrictive lung disease from his body habitus from polio and scoliosis. There is no evidence of obstructive sleep apnea. Patient is using tabletop. We will work on trying to arrange outpatient BiPAP for him for hypoventilation as noted. 2. Systolic congestive heart failure. The patient does have a history of systolic congestive heart failure. He has been restarted on low of diuretic by the medicine team today. They have started him on Demadex 10 mg daily. He has been elevating his legs. Continue to monitor fluid status closely. 3. Bronchitis/possible underlying pneumonia. Patient is on ceftriaxone 1 gram IV daily since . Today will be day 6. His sputum did grow out Moraxella catarrhalis. Plan is for seven days of the antibiotics. Therefore, plan will be to continue ceftriaxone today and likely stop it after tomorrows dose for a full seven days of antibiotic therapy. 4. Thrombocytopenia. The patient's platelets have remained stable and are at 57 today. His Curtis was removed on Saturday and heparin was discontinued on Saturday as well for the thrombocytopenia and some blood tinged urine. Nursing notes no further hematuria. Continue to monitor closely. Will continue to hold heparin for now as the patient is no longer hemoconcentrated and he still is thrombocytopenic. Monitor platelets closely for consideration of when to restart prophylactic anticoagulation.
[2018-09-02] MEDS: cefTRIAXone SOD 1 GM in D5W MINI-BAG PLUS 50 ML IV SCH (17:33)
[2018-09-02] MEDS: PRAVASTATIN 10 MG TAB PO SCH (20:06)
[2018-09-03] VITALS: BP 99/55
[2018-09-03 04:00] VITALS: BP 105/58
[2018-09-03 05:25] LABS: BLOOD UREA NITROGEN 31 MG/DL (7-18); CALCIUM LEVEL 7.5 MG/DL (8.8-10.2); CARBON DIOXIDE LEVEL 36 MEQ/L (21-32); CHLORIDE LEVEL 100 MEQ/L (98-107); CREATININE FOR GFR 0.73 MG/DL (0.70-1.30); GLOMERULAR FILTRATION RATE > 60.0 (>42); GLUCOSE, FASTING 90 MG/DL (70-100); POTASSIUM SERUM 4.6 MEQ/L (3.5-5.1); SODIUM LEVEL 139 MEQ/L (136-145)
[2018-09-03 05:26] LABS: HEMATOCRIT 46.2 % (42.0-52.0); HEMOGLOBIN 14.7 g/dl (13.5-17.5); MEAN CORPUSCULAR HEMOGLOBIN 34.7 pg (27.0-33.0); MEAN CORPUSCULAR HGB CONC 31.8 g/dl (32.0-36.5); RED BLOOD COUNT 4.24 10^6/uL (4.30-6.10); WHITE BLOOD COUNT 4.2 10^3/uL (4.0-10.0)
[2018-09-03 05:28] LABS: PLATELET COUNT, AUTOMATED 69 10^3/uL (150-450)
[2018-09-03] MEDS: ALBUTEROL SULFATE 2.5 MG/0.5 ML INH NEB SOLN NEB SCH ×3 (07:59→19:46)
[2018-09-03 08:00] VITALS: BP 105/58
[2018-09-03] MEDS: TORSEMIDE 10 MG TABLET PO SCH (09:06)
[2018-09-03] MEDS: MULTIVITAMINS/MINERALS THERAP 1 TAB PO SCH (09:06)
[2018-09-03] MEDS: VITAMIN D 1,000 INTERNATIONAL UNITS TABLET PO SCH (09:06)
[2018-09-03] MEDS: PANTOPRAZOLE 40MG TAB (PROTONIX) PO SCH (09:06)
[2018-09-03] MEDS: CETIRIZINE (ZyrTEC) 10 MG TAB PO SCH (09:06)
[2018-09-03] MEDS ORDERED: TORSEMIDE 10 MG TABLET PO ONE (10:00)
--- NOTE | 2018-09-03 10:02 | CCN ---
DATE: 09/03/2018 Mr. Flores is seen in the intensive care unit (ICU). He is a progressive care unit (PCU) patient. He states he is doing well without any new issues. He continues to progressively improve daily. He is back on low-dose diuretic with torsemide 10 mg daily and he is tolerating that without problem. He has not had any fevers or chills. He has been using bilevel at night. He is tolerating room air during the day. He does require bilevel for hypoventilation from restrictive lung disease from his body habitus due to a history of polio and scoliosis. PHYSICAL EXAMINATION: Temperature 98.1, pulse 71, respiratory rate is 26, blood pressure is 105/58, and pulse ox is 94% on room air. General: The patient is sitting up in bed. He speaks in complete sentences. He is alert and oriented times three. HEENT: Head is normocephalic, atraumatic. Sclerae is clear. Pupils reactive. Moist mucous membranes. Tongue is midline. Neck: Neck is supple. No cervical lymphadenopathy. No jugular venous distention (JVD). No tracheal deviation. Cardiac: Regular rate and rhythm. S1 and S2. No murmurs. Pulmonary: Clear to auscultation bilaterally. No wheezes, rales, rhonchi or crackles. No accessory muscle use. Severe thoracic kyphoscoliosis noted. Abdomen: Positive bowel sounds. Soft, nontender. No obvious splenomegaly. Extremities: The patient has 1+ bilateral lower extremity edema. LABORATORY DATA: WBC 4.2, hemoglobin 14.7, hematocrit 46.2, platelets 69. Sodium 139, potassium 4.6, chloride 100, carbon dioxide 36, BUN 31, creatinine 0.73, glucose 90, calcium 7.5. ASSESSMENT/PLAN: 1. 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 The patient requires BiPAP for sleep and will require BiPAP for home use for his hypoventilation from restrictive lung disease from body habitus from polio and scoliosis. There is no evidence of obstructive sleep apnea. He is doing well with table top BiPAP. We are working on trying to arrange outpatient BiPAP for when he goes home. 2. Systolic congestive heart failure. The patient had been restarted on low dose diuretic of Demadex 10 mg daily. The patient's creatinine is good at 0.73. He does seem to have a little more edema today. We will increase his torsemide from 10 mg daily to 20 mg daily. Continue to monitor fluid status closely. Continue to elevate legs. 3. Bronchitis/possible underlying pneumonia. Respiratory infection possibly caused the dehydration. He is currently on ceftriaxone 1 gram IV daily. Today will be day seven. Plan is for discontinuation of the ceftriaxone after today's dose giving him a total of 7 days of IV ceftriaxone. Sputum did grow out Moraxella catarrhalis. 4. Thrombocytopenia. The patient's platelets are up today at 69. Heparin was held due to the thrombocytopenia. Continue to monitor closely. Edited: 09/03/2018 1006 vlm MTDD
--- NOTE | 2018-09-03 11:21 | IPNPDOC ---
Subjective Date Seen The patient was seen on 09/03/18. Subjective Chief Complaint/HPI Patient seen and examined at bedside. Reports that he is feeling back to his baseline. He was noted to be sitting up in bed, and denies any new acute complaints. He tells me that he was able to use his rolling walker and walk to the chair yesterday afternoon. Objective Physical Examination General Exam: Positive: Alert, Cooperative, No Acute Distress ENT Exam: Positive: Atraumatic, Mucous membr. moist/pink Chest Exam: Positive: Diminished; Negative: Rales, Rhonchi, Wheezing Heart Exam: Positive: Rate Normal, Normal S1, Normal S2 Telemetry: Positive: Sinus Abdomen Exam: Positive: Soft; Negative: Tenderness Extremity Exam: Positive: Swelling (2+ pitting edema in the lower extremities bilaterally); Negative: Tenderness Psych Exam: Positive: Oriented x 3 A-FIB/CHADSVASC A-FIB History Current/History of A-Fib/PAF?: No Assessment /Plan Plan/VTE VTE Prophylaxis Ordered?: Yes Plan Hx of Combined Systolic and Diastolic CHF The patient's blood pressure has remained stable and his renal function has remained stable this AM. We have increased Torsemide this AM to 20 mg and will assess for the patient's response. We will also f/u with Cardiology recommendations, anticipate D/C in the AM Hypercapnic Respiratory Failure Likely a combination of factors including underlying restrictive lung disease, severe kyphoscoliosis, RLL pneumonia, and tenuous volume status due to underlying CHF We will cont to monitor the patient Pulmonary on board, input appreciated--the patient will require evening BiPAP therapy and Pulmonary will help set this up for us. Acute Kidney Injury 2/2 Intravascular Volume Depletion in the setting of Diuretic Use, resolved Patient was overdiuresed in the outpatient setting Currently we are re-introducing his diuretic meds/HF therapy in an effort to better volume optimize him Elevated Troponin Markers EKG with no acute ST changes Troponins likely elevated due to demand ischemia from hypotension--It does appear that the patient has had chronically elevated troponins dating back to July of 2014 Patient denies any c/o chest pain, palpitations at this time Cont ASA, Statin Cardiology on board, will f/u with input RLL Infiltrate Possibly a contributing factor to the patient's initial presentation of SOB Sputum culture notable for moxarella Cont on Rocephin at this time Erythrocytosis Contributing factor includes hemoconcentration from diuretic use on admission. This has improved after gentle IVF hydration Hematology has been consulted and is working the patient up for polycythemia vera Thrombocytopenia of unclear etiology Heparin SC for DVT prophylaxis and ASA held No indication for platelet transition at this time Heme/Onc on board and working the patient up--he will need to follow up as an outpatient for further workup Dyslipidemia Cont Statin Hx of Prostate Ca Stage IIA Follow up as outpatient GI/DVT Prophylaxis Protonix/SCDs Functional conditioning I did offer the patient a physical therapy/occupational therapy consultation for functional optimization while the patient is here. The patient and have declined this request. Risks, benefits, and alternative options discussed at length, and they have verbalized understanding of the same. Keeping the patient up in a chair and out of bed encouraged with staff supervision. Code Status: DNR Guarded clinical condition. Disposition-The patient remains stable and diuretic therapy is being titrated. Anticipate D/C in the AM. VS, I&O, 24H, Fishbone Vital Signs/I&O Vital Signs Date Time Temp Pulse Resp B/P (MAP) Pulse Ox O2 Delivery O2 Flow Rate FiO2 09/03/18 08:00 98.1 71 22 105/58 (74) 91 09/01/18 21:00 1.0 09/01/18 10:00 28 09/01/18 00:10 BIPAP/CPAP I&O- Last 24 Hours up to 6 AM 09/03/18 06:00 Intake Total 840 ml Output Total 250 ml Balance 590 ml Laboratory Data 24H LABS Laboratory Tests 2 09/03/18 04:42: Nucleated Red Blood Cells % (auto) 0.0, Anion Gap 3L, Glomerular Filtration Rate > 60.0, Blood Urea Nitrogen 31H, Creatinine 0.73, Sodium Level 139, Potassium Level 4.6, Chloride Level 100, Carbon Dioxide Level 36H, Calcium Level 7.5L CBC/BMP Laboratory Tests 09/03/18 04:42 Red Blood Count 4.24 L, Mean Corpuscular Volume 109.0 H, Mean Corpuscular Hemoglobin 34.7 H, Mean Corpuscular Hemoglobin Concent 31.8 L, Red Cell Distribution Width 15.9 H, Calcium Level 7.5 L Microbiology Microbiology 08/28/18 Gram Stain - Final, Complete 08/28/18 Sputum Culture - Final, Complete Moraxella Catarrhalis BUDDY LOZA MD September 03, 2018 11:21
[2018-09-03 12:00] VITALS: BP 106/67
[2018-09-03 16:00] VITALS: BP 93/57
[2018-09-03] MEDS: cefTRIAXone SOD 1 GM in D5W MINI-BAG PLUS 50 ML IV SCH (17:49)
[2018-09-03 20:00] VITALS: BP 116/64
[2018-09-03] MEDS: PRAVASTATIN 10 MG TAB PO SCH (20:04)
[2018-09-04] VITALS (7 sets, daily range): BP systolic 90–106; BP diastolic 51–64
[2018-09-04 06:08] LABS: HEMATOCRIT 48.4 % (42.0-52.0); HEMOGLOBIN 15.5 g/dl (13.5-17.5); MEAN CORPUSCULAR HEMOGLOBIN 34.8 pg (27.0-33.0); MEAN CORPUSCULAR VOLUME 108.8 fl (80.0-96.0); RED BLOOD COUNT 4.45 10^6/uL (4.30-6.10); WHITE BLOOD COUNT 3.7 10^3/uL (4.0-10.0)
[2018-09-04 06:09] LABS: PLATELET COUNT, AUTOMATED 77 10^3/uL (150-450)
[2018-09-04 06:20] LABS: BLOOD UREA NITROGEN 29 MG/DL (7-18); CALCIUM LEVEL 7.4 MG/DL (8.8-10.2); CARBON DIOXIDE LEVEL 35 MEQ/L (21-32); CHLORIDE LEVEL 98 MEQ/L (98-107); CREATININE FOR GFR 0.79 MG/DL (0.70-1.30); GLOMERULAR FILTRATION RATE > 60.0 (>42); GLUCOSE, FASTING 117 MG/DL (70-100); POTASSIUM SERUM 4.2 MEQ/L (3.5-5.1); SODIUM LEVEL 136 MEQ/L (136-145)
[2018-09-04] MEDS: ALBUTEROL SULFATE 2.5 MG/0.5 ML INH NEB SOLN NEB SCH ×4 (07:24→19:40)
[2018-09-04] MEDS: VITAMIN D 1,000 INTERNATIONAL UNITS TABLET PO SCH (08:45)
[2018-09-04] MEDS: PANTOPRAZOLE 40MG TAB (PROTONIX) PO SCH (08:45)
[2018-09-04] MEDS: MULTIVITAMINS/MINERALS THERAP 1 TAB PO SCH (08:45)
[2018-09-04] MEDS: CETIRIZINE (ZyrTEC) 10 MG TAB PO SCH (08:45)
[2018-09-04] MEDS ORDERED: TORSEMIDE 20 MG TAB PO SCH (09:00)
--- NOTE | 2018-09-04 09:21 | CCN ---
DATE: 09/04/2018 Mr. Flores is seen in PCU. He is doing well and feeling that he is returning to baseline. He denies any shortness of breath or chest pain. Denies fevers or chills. He has been using bilevel at night for hypoventilation and during the day he is tolerating room air with good O2 sats. He will require outpatient bilevel therapy for his hypoventilation due to restrictive lung disease from his body habitus, which is from a history of polio and scoliosis. PHYSICAL EXAMINATION: Temperature 97.5, pulse 114, respiratory rate is 18, blood pressure is 106/59, pulse ox 93% on room air. GENERAL: The patient is sitting up on the side of the bed. He speaks in complete sentences. He is alert and oriented times three. HEENT: Head is normocephalic, atraumatic. Sclera is clear. Pupils reactive. Moist mucous membranes. Tongue is midline. NECK: Neck is supple. No cervical lymphadenopathy. No JVD. No tracheal deviation. CARDIAC: Regular rate and rhythm. S1-S2 no murmurs. PULMONARY: Clear to auscultation bilaterally. No wheezes, rales, rhonchi or crackles. No accessory muscle use. Severe thoracic kyphoscoliosis noted. ABDOMEN: Positive bowel sounds. Soft and nontender. No obvious splenomegaly. EXTREMITIES: The patient has 1+ bilateral lower extremity pitting edema up to the thigh. LABS: Hemoglobin is 15.5, hematocrit is 48.4, platelets 77. Sodium is 136, potassium is 4.2, chloride 98, carbon dioxide 35, BUN 29, creatinine 0.79, glucose 117, calcium 7.4. ASSESSMENT/PLAN: 1. 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 The patient requires BiPAP for sleep and will require BiPAP for home use for his hypoventilation from restrictive lung disease from body habitus from polio and scoliosis. There is no evidence of obstructive sleep apnea. He has been doing well with the tabletop BiPAP. We are working on arranging outpatient BiPAP for when he goes home. We had contacted [email or web address]. The patient will need to have nocturnal oximetry testing on oxygen 2 liters with blood gas done in the morning in order to prove that he needs the bilevel for hypoventilation. Once this is proven, then additional lab results can be included in hopes of the patient getting approved for bilevel therapy. Again, bilevel is for hypoventilation from restrictive lung disease. The patient has no evidence of obstructive sleep apnea. 2. Systolic congestive heart failure. The patient has been restarted on Demadex. Initially started on 10 mg yesterday was increased [address] 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 3. Bronchitis. The patient's sputum culture was positive for Moraxella catarrhalis. He did complete seven days of IV ceftriaxone therapy which was discontinued after yesterday. 4. Thrombocytopenia. The patient's platelets are up today at 77. Heparin has been held due to thrombocytopenia. DISPOSITION: Plan is for possible discharge home tomorrow with BiPAP after the patient undergoes nocturnal oximetry on 2 liters of oxygen tonight and repeat blood gas in the morning. Will need to make sure that outpatient BiPAP set up before the patient is discharged home. MTDD
--- NOTE | 2018-09-04 12:09 | IPNPDOC ---
Subjective Date Seen The patient was seen on 09/04/18. Subjective Chief Complaint/HPI Patient seen and examined at the bedside. Reports that his respiratory status is more or less back to his baseline. However, the patient still continues to have bilateral lower extremity edema. He does report sitting on the edge of the bed with his legs dangling off of the edge for most of the day. Denies any acute complaints of chest pain, palpitations. Objective Physical Examination General Exam: Positive: Alert, Cooperative, No Acute Distress ENT Exam: Positive: Atraumatic, Mucous membr. moist/pink Chest Exam: Positive: Diminished; Negative: Rales, Rhonchi, Wheezing Heart Exam: Positive: Rate Normal, Normal S1, Normal S2 Telemetry: Positive: Sinus Abdomen Exam: Positive: Soft; Negative: Tenderness Extremity Exam: Positive: Swelling (2+ pitting edema in the lower extremities bilaterally); Negative: Tenderness Psych Exam: Positive: Oriented x 3 A-FIB/CHADSVASC A-FIB History Current/History of A-Fib/PAF?: No Assessment /Plan Plan/VTE VTE Prophylaxis Ordered?: Yes Plan Hx of Combined Systolic and Diastolic CHF The patient's blood pressure has remained stable and his renal function has remained stable this AM. We will continue to increase the patient's torsemide to 20 mg twice a day, as his lower extremity edema continues to remain, and his blood pressure/renal function has tolerated the diuretic therapy well. We will also f/u with Cardiology recommendations Hypercapnic Respiratory Failure Likely a combination of factors including underlying restrictive lung disease, severe kyphoscoliosis, RLL pneumonia, and tenuous volume status due to underlying CHF We will cont to monitor the patient Pulmonary on board, input appreciated--the patient will require evening BiPAP therapy and Pulmonary has been helping us set this up. The patient will have to have nocturnal oximetry testing on oxygen this evening with a repeat ABG in the a.m. off of BiPAP to justify his need to go home with the device. Acute Kidney Injury 2/2 Intravascular Volume Depletion in the setting of Diuretic Use, resolved Patient was overdiuresed in the outpatient setting Currently we are re-introducing his diuretic meds/HF therapy in an effort to better volume optimize him Elevated Troponin Markers EKG with no acute ST changes Troponins likely elevated due to demand ischemia from hypotension--It does appear that the patient has had chronically elevated troponins dating back to July of 2014 Patient denies any c/o chest pain, palpitations at this time Cont ASA, Statin Cardiology on board, will f/u with input RLL Infiltrate Possibly a contributing factor to the patient's initial presentation of SOB Sputum culture notable for moxarella Cont on Rocephin at this time Erythrocytosis Contributing factor includes hemoconcentration from diuretic use on admission. This has improved after gentle IVF hydration Hematology has been consulted and is working the patient up for polycythemia vera Thrombocytopenia of unclear etiology Heparin SC for DVT prophylaxis and ASA held No indication for platelet transition at this time Heme/Onc on board and working the patient up--he will need to follow up as an outpatient for further workup Dyslipidemia Cont Statin Hx of Prostate Ca Stage IIA Follow up as outpatient GI/DVT Prophylaxis Protonix/SCDs Functional conditioning I did offer the patient a physical therapy/occupational therapy consultation for functional optimization while the patient is here. The patient and have declined this request. Risks, benefits, and alternative options discussed at length, and they have verbalized understanding of the same. Keeping the patient up in a chair and out of bed encouraged with staff supervision. Code Status: DNR Guarded clinical condition. Disposition-The patient remains stable and diuretic therapy is being titrated. The patient will have to have nocturnal oximetry testing on oxygen this evening with a repeat ABG in the a.m. off of BiPAP to justify his need to go home with the device. We will continue to monitor the patient in the interim. VS, I&O, 24H, [facility] Vital Signs/I&O Vital Signs Date Time Temp Pulse Resp B/P (MAP) Pulse Ox O2 Delivery O2 Flow Rate FiO2 09/04/18 11:46 98.1 77 18 100/56 (71) 93 09/01/18 21:00 1.0 09/01/18 10:00 28 09/01/18 00:10 BIPAP/CPAP I&O- Last 24 Hours up to 6 AM 09/04/18 06:00 Intake Total 1375 ml Output Total 1325 ml Balance 50 ml Laboratory Data 24H LABS Laboratory Tests 2 09/04/18 05:39: Nucleated Red Blood Cells % (auto) 0.0, Immature Platelet Fraction 12.5H, Anion Gap 3L, Glomerular Filtration Rate > 60.0, Blood Urea Nitrogen 29H, Creatinine 0.79, Sodium Level 136, Potassium Level 4.2, Chloride Level 98, Carbon Dioxide Level 35H, Calcium Level 7.4L CBC/BMP Laboratory Tests 09/04/18 05:39 Red Blood Count 4.45, Mean Corpuscular Volume 108.8 H, Mean Corpuscular Hemoglobin 34.8 H, Mean Corpuscular Hemoglobin Concent 32.0, Red Cell Distribution Width 15.9 H, Calcium Level 7.4 L Microbiology Microbiology 08/28/18 Gram Stain - Final, Complete 08/28/18 Sputum Culture - Final, Complete Moraxella Catarrhalis BUDDY LOZA MD September 04, 2018 12:09
--- NOTE | 2018-09-04 15:55 | REP ---
Right lower extremity Duplex Doppler venous ultrasound: Real time compression and duplex Doppler interrogation of the right lower extremity deep venous system is performed. The right common femoral, superficial femoral and popliteal veins are fully compressible with transducer pressure and demonstrate normal spontaneous and phasic flow, without evidence of deep venous thrombosis. Impression: No evidence of deep venous thrombosis of the right lower extremity femoral popliteal venous system. Electronically Signed by Abhi Rao MD 09/04/2018 03:47 P
[2018-09-04] MEDS: TORSEMIDE 20 MG TAB PO SCH (16:30)
[2018-09-04] MEDS: PRAVASTATIN 10 MG TAB PO SCH (21:24)
[2018-09-05] VITALS: BP 100/57
[2018-09-05 04:00] VITALS: BP 109/61
[2018-09-05 05:14] LABS: ABG HCO3 33.2 MEQ/L (22.0-26.0); ABG O2 SATURATION 96.7 % (95.0-99.0); ABG PARTIAL PRESSURE O2 89.3 mmHg (75.0-100.0); ABG TOTAL CO2 35.1 MEQ/L (23.0-31.0); ABG pH (ARTERIAL) 7.338 UNITS (7.350-7.450)
[2018-09-05 05:17] LABS: ABG PARTIAL PRESSURE CO2 63.2 mmHg (35.0-45.0)
[2018-09-05 07:51] VITALS: BP 95/56
[2018-09-05 07:54] LABS: HEMATOCRIT 46.6 % (42.0-52.0); HEMOGLOBIN 14.6 g/dl (13.5-17.5); MEAN CORPUSCULAR HEMOGLOBIN 34.9 pg (27.0-33.0); MEAN CORPUSCULAR HGB CONC 31.3 g/dl (32.0-36.5); MEAN CORPUSCULAR VOLUME 111.5 fl (80.0-96.0); RED BLOOD COUNT 4.18 10^6/uL (4.30-6.10); WHITE BLOOD COUNT 4.9 10^3/uL (4.0-10.0)
[2018-09-05 07:58] LABS: PLATELET COUNT, AUTOMATED 85 10^3/uL (150-450)
[2018-09-05 08:05] LABS: BLOOD UREA NITROGEN 30 MG/DL (7-18); CALCIUM LEVEL 7.2 MG/DL (8.8-10.2); CARBON DIOXIDE LEVEL 32 MEQ/L (21-32); CHLORIDE LEVEL 101 MEQ/L (98-107); CREATININE FOR GFR 0.76 MG/DL (0.70-1.30); GLOMERULAR FILTRATION RATE > 60.0 (>42); GLUCOSE, FASTING 87 MG/DL (70-100); POTASSIUM SERUM 4.7 MEQ/L (3.5-5.1); SODIUM LEVEL 138 MEQ/L (136-145)
[2018-09-05] MEDS: CETIRIZINE (ZyrTEC) 10 MG TAB PO SCH (08:15)
[2018-09-05] MEDS: TORSEMIDE 20 MG TAB PO SCH (08:15)
[2018-09-05] MEDS: VITAMIN D 1,000 INTERNATIONAL UNITS TABLET PO SCH (08:15)
[2018-09-05] MEDS: MULTIVITAMINS/MINERALS THERAP 1 TAB PO SCH (08:15)
[2018-09-05] MEDS: PANTOPRAZOLE 40MG TAB (PROTONIX) PO SCH (08:15)
[2018-09-05] MEDS: ALBUTEROL SULFATE 2.5 MG/0.5 ML INH NEB SOLN NEB SCH ×3 (08:25→15:11)
[2018-09-05 10:06] LABS: JAK2 MUTATIONS FOR PATH SENDOU See Pathology Report
[2018-09-05 11:48] VITALS: BP 88/54
[2018-09-05] MEDS ORDERED: ALBU83IN NEB (12:12)
[2018-09-05] MEDS ORDERED: FLYP1MIS XX (12:12)
[2018-09-05] MEDS ORDERED: TORS20TA2 PO (12:12)
--- NOTE | 2018-09-05 12:55 | CCN ---
DATE: 09/05/2018 Patient was seen and examined this morning at the bedside. Patient reports that his breathing has been doing well, currently at his baseline. He denies any significant chest pain or shortness of breath. He does have some cough, occasionally productive of some white or yellow mucus. He has no fevers or chills. He does continue to have some lower extremity edema bilaterally. The patient was off of bilevel positive airway pressure (BiPAP) overnight and he did have a nocturnal oximetry done as well as arterial blood gas (ABG) this morning done off of BiPAP. PHYSICAL EXAMINATION: Temperature 97.6, pulse 65, respirations 22, blood pressure 95/56, oxygen saturation 92-97% on 2 liters nasal cannula. GENERAL: Patient is awake and alert, sitting in the bed, in no apparent distress, is able to speak in complete sentences. HEENT: He is normocephalic, atraumatic. Pupils are reactive. Moist mucous membranes. Tongue is midline. Neck is supple. No palpable adenopathy. CARDIAC: Regular rate and rhythm. Normal S1, S2. No murmurs appreciated. PULMONARY: Patient has some kyphoscoliosis and there are some decreased breath sounds on the right base with occasional inspiratory squeaks in the left and the right, with some occasional rhonchi as well. ABDOMEN: Soft. There is no tenderness. Mildly distended. Positive bowel sounds. EXTREMITIES: Patient has +1-2 pitting edema in the bilateral lower extremities. LABORATORY DATA: WBC 4.9, hemoglobin 14.6, platelets 85. Chemistry: Sodium was 138, potassium 4.7, chloride 101, bicarbonate 32, BUN 30, creatinine 0.76, glucose is 87. Arterial blood gas (ABG) this morning off of bilevel positive airway pressure (BiPAP) with a pH 7.338, pCO2 of 63.2 and pO2 of 89.3. ASSESSMENT AND PLAN: Mr. Flores is a 73-year-old male with a history of polio with restrictive lung disease, ischemic cardiomyopathy with congestive heart failure (CHF) status post automatic implantable cardioverter defibrillator (AICD), history of coronary artery disease (CAD) and prostate cancer, who presented with increasing shortness of breath. Patient had worsening of his chronic hypercapnic respiratory failure secondary to right lower lobe pneumonia and also from worsening metabolic alkalosis from diuresis. His sputum cultures were positive for Moraxella. Patient was initially hypotensive with acute kidney injury (BYRON) secondary to diuresis. His blood pressures and renal function have improved and he is now noted to have some increased lower extremity edema and so his diuretics have been slowly restarted. Patient does have evidence of chronic hypercarbic respiratory failure secondary to hypoventilation from a restrictive lung physiology due to the kyphoscoliosis and neuromuscular disease from his polio. He had a nocturnal oximetry study done overnight on 2 liters nasal cannula, which was his home oxygen therapy and there was no significant desaturations or repetitive respiratory events consistent with obstructive sleep apnea. Therefore, given the study, patient's hypoventilation is likely secondary to restrictive physiology and neuromuscular disease causing hypoventilation and he will need bilevel support at night. His ABG this morning off of BiPAP is consistent with this as it does show compensated chronic hypercarbic respiratory failure. Therefore, patient will be ordered for home BiPAP with the setting of 20/6 and 28% FiO2. He would likely still need followup as an outpatient and possible additional studies to determine appropriate titration of his bilevel therapy. Will continue with diuretics as per his primary team. Patient will need close monitoring of his fluid status. Patient completed antibiotics for possible Moraxella pneumonia. DISPOSITION: Patient is planned for discharge later today if we are able to set up his home bilevel and he will need followup with pulmonary as an outpatient in a few weeks time with Dr. Olguin. NUVIA
--- NOTE | 2018-09-05 14:52 | DS.PDOC ---
Discharge Summary General Date of Admission Aug 28, 2018 at 00:09 Date of Discharge 09/05/18 Specialist/Consultants Involve Dr. Olguin and Dr. Mcintosh of Pulmonary. Dr. Adams of Cardiology Discharge Summary PROCEDURES PERFORMED DURING STAY: TLC placement in Right IJ by Dr. Olguin of Pulmonary ADMITTING/DISCHARGE DIAGNOSES: History of combined systolic and diastolic congestive heart failure Hypercapnic respiratory failure Community acquired pneumonia Acute kidney injury Elevated troponin markers Erythrocytosis, thrombocytopenia Dyslipidemia History of prostate cancer COMPLICATIONS/CHIEF COMPLAINT: Shortness Of Breath. HISTORY OF PRESENT ILLNESS: . 73-year-old male with past medical history of polio with restrictive lung disease, ischemic cardiomyopathy with congestive heart failure status post AICD, history of coronary artery disease, prostate cancer, and dyslipidemia came to the emergency room with a chief complaint of shortness of breath. It appears that the patient's diuretic therapy was being titrated by Cardiology on an outpatient basis. He came to the ER and was given one dose of IV Lasix on the night of admission by the ER on 08/27, as there were apparently concerns about the patient being in decompensated heart failure. He did not receive any further doses. However, the patient became hypotensive with renal insufficiency during this hospital course and had to be given gentle IVF hydration. Consequently the patient's blood pressure improved, as well as his renal insufficiency. Also of note, the patient was started on BiPAP therapy due to hypercapnic respiratory failure thought to be secondary to underlying restrictive lung disease, severe kyphoscoliosis, and a right lower lobe infiltrate pneumonia. The patient's respiratory status has been optimized with the assistance of pulmonology, and he will need to be discharged home on BiPAP. The patient's diuretic therapy has been reintroduced with the assistance of cardiology. His volume status has impr bibiana. 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 I did discuss his medication regimen upon discharge Dr. Adams, and he will continue to titrate medications as tolerated. Also of note, the patient was noted to have erythrocytosis, and thrombocytopenia during this admission. He was evaluated by hematology/oncology and will need to follow-up with them as an outpatient. DISCHARGE MEDICATIONS: Please see below. ALLERGIES: Please see below. PHYSICAL EXAMINATION ON DISCHARGE: VITAL SIGNS: Please see below. General Exam: Positive: Alert, Cooperative, No Acute Distress ENT Exam: Positive: Atraumatic, Mucous membr. moist/pink Chest Exam: Positive: Diminished; Negative: Rales, Rhonchi, Wheezing Heart Exam: Positive: Rate Normal, Normal S1, Normal S2 Telemetry: Positive: Sinus Abdomen Exam: Positive: Soft; Negative: Tenderness Extremity Exam: Positive: Swelling (2+ pitting edema in the lower extremities bilaterally); Negative: Tenderness Psych Exam: Positive: Oriented x 3 LABORATORY DATA: Please see below. IMAGING: Chest x-ray: Two views. History: Peripheral edema. CHF. Comparison chest x-ray: August 20, 2018. Findings: There is severe thoracic scoliosis with a dextroconvex curve and associated rib deformity. A unipolar pacemaker is seen in the right heart via the left side as before. There is diffuse osteopenia. The lungs are difficult to evaluate but there does appear to be a pattern of increased density in the right lower lung field on today's frontal view which may reflect pneumonia. There is a suggestion of air bronchograms. This I cannot exclude small bilateral effusions. Lateral view shows significant kyphosis along with a scoliosis. Mitral annular calcification is seen. Impression: Cardiomegaly, severe kyphoscoliosis, and a probable right base pneumonia. ABDOMEN ULTRASOUND: HISTORY: Elevated hemoglobin and hematocrit. Calcifications are present in the gallbladder consistent with cholelithiasis. The gallbladder wall measures 4.6 mm and is slightly thickened. There is fatty infiltration of the liver. A 1.5 cm hemangioma is present in the liver. There is bilateral renal atrophy. The right kidney measures 4.2 cm in transverse x 3.5 cm in AP x 8.4 cm in cephalocaudal dimensions. The left kidney measures 4.6 cm in transverse x 4.9 cm in AP x 8.9 cm in cephalocaudal dimensions. There is no hydronephrosis or mass. A mild amount of free fluid is present in the right upper quadrant. IMPRESSION: 1. Cholelithiasis. 2. Fatty infiltration of the liver. 3. 1.5 cm liver hemangioma. 4. Bilateral renal atrophy. 5. There is a mild amount of free fluid in the right upper quadrant. CHEST, PORTABLE: AP portable view of the chest was performed. Comparison is made with prior study of 08/27/2018. There is again opacity in the right lung base suggesting pneumonic consolidation. I can not exclude underlying right effusion. Left lung appears clear. Heart appears enlarged. There is severe right thoracic scoliosis. There is a left single lead pace maker again noted. A right central venous catheter is seen with the tip in the superior vena cava. There is no pneumothorax. PORTABLE CHEST: AP portable view of the chest was performed. COMPARISON: 08/28/2018 There appear to be increasing bilateral infiltrates and possible effusions. Heart appears enlarged. Severe scoliosis is again noted. A left single lead pacemaker is again noted. The previously noted right central venous catheter is not visualized. Right lower extremity Duplex Doppler venous ultrasound: Real time compression and duplex Doppler interrogation of the right lower extremity deep venous system is performed. The right common femoral, superficial femoral and popliteal veins are fully compressible with transducer pressure and demonstrate normal spontaneous and phasic flow, without evidence of deep venous thrombosis. Impression: No evidence of deep venous thrombosis of the right lower extremity femoral popliteal venous system. PROGNOSIS: Poor long-term prognosis ACTIVITY: As tolerated. DIET: 2 g low sodium, 1800 mL fluid restrict her diet DISCHARGE PLAN: DISPOSITION: . Home DISCHARGE INSTRUCTIONS: Follow-up with PCP and cardiology in 1 week. Follow-up with Dr. Olguin of pulmonary and 2-4 weeks. Follow-up with Dr. Bowling of hematology/oncology in 4-6 weeks. DISCHARGE CONDITION: Stable. TIME SPENT ON DISCHARGE: Greater than 30 minutes. Vital Signs/I&Os Vital Signs Date Time Temp Pulse Resp B/P (MAP) Pulse Ox O2 Delivery O2 Flow Rate FiO2 09/05/18 11:48 98.5 72 20 88/54 (65) 93 09/05/18 08:00 2.0 09/04/18 22:15 Nasal Cannula 09/01/18 10:00 28 I&O- Last 24 Hours up to 6 AM 09/05/18 06:00 Intake Total 790 ml Output Total 825 ml Balance -35 ml Laboratory Data Labs 24H Laboratory Tests 2 09/05/18 05:05: Blood Gas Bicarbonate Standard 29.0H, Arterial Blood pH 7.338L, Arterial Blood Partial Pressure CO2 63.2*H, Arterial Blood Partial Pressure O2 89.3, Arterial Blood Total CO2 35.1H, Arterial Blood HCO3 33.2H, Arterial Blood Base Excess 5.0H, Arterial Blood Oxygen Saturation 96.7 09/05/18 07:24: Nucleated Red Blood Cells % (auto) 0.0, Immature Platelet Fraction 11.6H, Anion Gap 5L, Glomerular Filtration Rate > 60.0, Blood Urea Nitrogen 30H, Creatinine 0.76, Sodium Level 138, Potassium Level 4.7, Chloride Level 101, Carbon Dioxide Level 32, Calcium Level 7.2L CBC/BMP Laboratory Tests 09/05/18 07:24 Red Blood Count 4.18 L, Mean Corpuscular Volume 111.5 H, Mean Corpuscular Hemoglobin 34.9 H, Mean Corpuscular Hemoglobin Concent 31.3 L, Red Cell Dist ribution Width 15.9 H, Calcium Level 7.2 L Microbiology Microbiology 08/28/18 Gram Stain - Final, Complete 08/28/18 Sputum Culture - Final, Complete Moraxella Catarrhalis Discharge Medications Scheduled Calcium Carb/Vitamin D3/Vit K1 (Viactiv Soft Chew) 1 Chw Chw, 1 CHW PO DAILY, ( Reported) Carvedilol (Carvedilol) 3.125 Mg Tablet, 0.5 TAB PO BID, (Reported) take if SBP > 95 Cetirizine HCl (Cetirizine HCl) 10 Mg Tablet, 10 MG PO DAILY, (Reported) Cholecalciferol (Vitamin D3) (Vitamin D3) 1,000 Unit Tablet, 2,000 UNIT PO DAILY, (Reported) Denosumab Injection (Prolia) 60 Mg/1 Ml Syringe, 60 MG SC ASDIRECTED, (Reported) EVERY SIX MONTHS, LAST DOSE WAS IN APRIL 2018 Multivitamins (Thera M Plus Tablet) 1 Tab Tab, 1 TAB PO DAILY, (Reported) Pravastatin Sodium (Pravastatin Sodium) 10 Mg Tab, 10 MG PO QHS, (Reported) Torsemide (Torsemide) 20 Mg Tablet, 20 MG PO BID@0900,1700 Scheduled PRN Albuterol Sulf (Albuterol Sulfate) 2.5 Mg/3 Ml Vial.neb, 1 VIAL NEB Q4HP PRN for wheezing Lactose-Reduced Food (Ensure Active High Protein) 1 Liq Liq, 1 LIQ PO DAILY PRN for NUTRITIONAL BOOST, (Reported) Allergies Coded Allergies: Penicillins (Verified Allergy, Intermediate, hives, 08/20/18) latex (Verified Allergy, Intermediate, rash , 08/20/18) BUDDY LOZA MD September 05, 2018 14:52
--- NOTE | 2018-09-07 13:21 | NOCOX ---
DATE OF PROCEDURE: 09/04/2018 The study was done on 2 liters nasal cannula oxygen, which was his home amount of oxygen supplementation. Study was done at [facility]. Total time was 6 hours of 45 minutes. The highest O2 sat was 99%. The lowest O2 sat was 86%. The time spent with an O2 sat less than 88% was 22 seconds. The patient's desaturation event index was only 1.5. Graphically, he did not have any significant periodic episodic desaturations overnight. There was some heart rate variability noted. IMPRESSION: No significant desaturations while on 2 liters nasal cannula oxygen supplementation. There were no episodic desaturations noted to suggest obstructive sleep apnea. MTDD
--- NOTE | 2018-09-07 14:12 | IPN ---
DATE: 09/05/2018 AGE: 73 This is a hematology followup note on Mr. Flores who was consulted on for polycythemia with a hematocrit around 63. 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 The patient was phlebotomized with 250 mL of whole blood. When he originally arrived, the patient was in respiratory distress and the admitting team has done a wonderful job. The patient is sitting up in bed, having a breakfast with a veracious appetite. The is sitting across from him in a wheelchair and they are both chatting away. The patient expects to go home today. The patient was also found to have a right-sided pneumonia and the sputum grew out Moraxella catarrhalis. The patient has been on antibiotics this hospitalization. At present, she is still on ceftriaxone. INTERVAL STUDIES: The patient's white count today is 4.9, hemoglobin 14.6, hematocrit 46.6, platelets 85,000 and this is an improvement on the platelet count that had been running in the 50,000 range, it is gradually getting better. The MCV continues to be at 111.5. Hemolysis has been ruled out. The haptoglobin was 65 and the LDH was just normal at 249 and that could have just been from hemolysis in the test tube from blood drawn. Erythropoietin level is 17.0, it is not less than 10. Ferritin level 60. B12 level 884. The folate level of more than 24.0. Ultrasound of the abdomen does not show any splenomegaly. JAK2 mutation is negative. All above results were explained to And Mrs. Flores. They asked appropriate questions. Since the CBC is recovering, we did not feel the need to give an appointment for office followup. If Dr. Shiela Shi feels anything has changed or worsened, we will be more than happy to see Mr. Flores in the hematology clinic at [facility]. The only thing on this admission that we did not have a good handle on was the MCV. It is quite high and it has been high looking back in the 102-110 range ever since 2016, over 2 years, and before that also it was fluctuating between slightly high to significantly high. The patient denies ever having taken any kind of chemotherapy. He does not have any cirrhosis of the liver that he knows off, unexplained macrocytosis. No hemolysis either. No B12 deficiency. We had ordered a B1 level, but we do not see that has come back, we will check with the lab on that. The only other possibility is does the patient have some sort of a myelodysplasia evolving at the bone marrow level? If the thrombocytopenia does not recover back to normal and the macrocytosis continues, then we would appreciate a call from Dr. Shiela Shi and then we can try and reconsult on the patient and ask him for a bone marrow when he is feeling better. This admission was a very difficult admission for the patient with all of his respiratory distress, etc. The thrombocytopenia, which was mild, could have been from the pneumonia itself, infections can cause it. The patient is on Protonix, which can cause pancytopenia. The patient is on Pravachol and Demadex, both of which can cause thrombocytopenia. We are not suggesting that any of these medicines be discontinued, especially since the platelet count is improving, we think it was probably from the pneumonia and infection related.
== END 2018-09-05 15:55 | disposition home health service (06) | DRG 177 ==
LOC: M ED 20:47 → M ED INP 08-28 00:09 → M ICU 08-28 11:23 → M PCU 09-04 04:50
PROVIDERS: ADMIT Internal Medicine; ATTEND Internal Medicine
PROC: 05HM33Z Insertion of Infusion Device into Right Internal Jugular Vein, Percutaneous Approach (ICD-10-PCS; principal; 2018-08-28)
DX: J15.6 Pneumonia due to other Gram-negative bacteria (principal); J96.22 Acute and chronic respiratory failure with hypercapnia; R57.1 Hypovolemic shock; I50.43 Acute on chronic combined systolic (congestive) and diastolic (congestive) heart failure; N17.9 Acute kidney failure, unspecified; I11.0 Hypertensive heart disease with heart failure; D69.6 Thrombocytopenia, unspecified; M41.9 Scoliosis, unspecified; I25.5 Ischemic cardiomyopathy; E78.5 Hyperlipidemia, unspecified; K80.20 Calculus of gallbladder without cholecystitis without obstruction; Z79.899 Other long term (current) drug therapy; Z88.0 Allergy status to penicillin; Z91.040 Latex allergy status; I25.10 Atherosclerotic heart disease of native coronary artery without angina pectoris; Z95.2 Presence of prosthetic heart valve; Z87.891 Personal history of nicotine dependence; M81.0 Age-related osteoporosis without current pathological fracture; I25.2 Old myocardial infarction

== ENCOUNTER → 2018-09-15 | Outpatient (REF) | payer MEDICARE, OTHER ==
[~2018-09-15] MED LIST changes: +ALBU83IN NEB; +ALL10TAB28 PO; +ASPI81CH33 PO; +FLYP1MIS XX; +TORS20TA2 PO; +VITA-144 PO
== END ==
LOC: M LAB REF 17:20
PROVIDERS: ATTEND Internal Medicine Pulmonary Disease
DX: J96.92 Respiratory failure, unspecified with hypercapnia (principal)

== ENCOUNTER → 2018-09-15 | Outpatient (CLI) | payer MEDICARE, OTHER ==
--- NOTE | 2018-09-15 16:03 | REP ---
Chest two views HISTORY: Cough Comparison: 09/01/2018 The lungs are clear. The heart is normal in size. The pulmonary vasculature is normal in appearance. There is marked scoliosis convex to the right. Cardiac pacemaker is present. IMPRESSION: No acute disease. Electronically Signed by Zhou Gomez MD 09/15/2018 03:55 P
== END ==
LOC: M WUC 15:04
PROVIDERS: ATTEND Internal Medicine
DX: R05 Cough (principal); Z95.0 Presence of cardiac pacemaker; J96.92 Respiratory failure, unspecified with hypercapnia

== ENCOUNTER 2018-10-02 06:03 | Inpatient (IN) | payer MEDICARE, OTHER ==
[2018-10-02] VITALS (34 sets, daily range): BP systolic 72–91; BP diastolic 40–72
[~2018-10-02] VITALS: Ht 157.5 cm; Wt 48.7 kg
[2018-10-02] MEDS ORDERED: METO25TA PO (06:27)
[2018-10-02 07:09] LABS: ABG BASE EXCESS 11.8 (-2.0-2.0); ABG HCO3 44.3 MEQ/L (22.0-26.0); ABG O2 SATURATION 98.2 % (95.0-99.0); ABG PARTIAL PRESSURE O2 132.6 mmHg (75.0-100.0); ABG STANDARD HCO3 35.8 MEQ/L (22.0-26.0); ABG TOTAL CO2 47.1 MEQ/L (23.0-31.0); ABG pH (ARTERIAL) 7.312 UNITS (7.350-7.450)
[2018-10-02 07:12] LABS: ABG PARTIAL PRESSURE CO2 89.6 mmHg (35.0-45.0)
[2018-10-02 07:45] LABS: ALBUMIN 4.4 GM/DL (3.2-5.2); BILIRUBIN,DIRECT 0.5 MG/DL (0.0-0.2); BILIRUBIN,TOTAL 3.1 MG/DL (0.2-1.0); CALCIUM LEVEL 10.4 MG/DL (8.8-10.2); CREATININE FOR GFR 1.33 MG/DL (0.70-1.30); GLOMERULAR FILTRATION RATE 56.3 (>42); MB/CK RELATIVE INDEX 6.25 (< OR =4); POTASSIUM SERUM 4.9 MEQ/L (3.5-5.1); TOTAL PROTEIN 8.3 GM/DL (6.4-8.2); TROPONIN I 0.25 NG/ML (< 0.10)
[2018-10-02 08:10] LABS: BASO % 0.5 % (0.0-1.0); HEMATOCRIT 57.2 % (42.0-52.0); HEMOGLOBIN 18.4 g/dl (13.5-17.5); LYMPH # 0.4 10^3/uL (1.5-4.5); LYMPH % 6.9 % (24.0-44.0); MEAN CORPUSCULAR HEMOGLOBIN 34.4 pg (27.0-33.0); MEAN CORPUSCULAR HGB CONC 32.2 g/dl (32.0-36.5); MEAN CORPUSCULAR VOLUME 106.9 fl (80.0-96.0); MONO # 0.4 10^3/uL (0.0-0.8); MONO % 6.7 % (0.0-5.0); NEUTROPHILS # 4.7 10^3/uL (1.8-7.7); NEUTROPHILS % 85.5 % (36.0-66.0); PLATELET COUNT, AUTOMATED 128 10^3/uL (150-450); RED BLOOD COUNT 5.35 10^6/uL (4.30-6.10); WHITE BLOOD COUNT 5.5 10^3/uL (4.0-10.0)
[2018-10-02] MEDS ORDERED: NS 500 ML IV ONE ×2 (08:15→12:45)
[2018-10-02 08:49] LABS: MAGNESIUM LEVEL 2.5 MG/DL (1.8-2.4)
[2018-10-02] MEDS ORDERED: PANTOPRAZOLE 40MG INJ (PROTONIX) (C9113) IV SCH (09:00)
[2018-10-02 09:14] LABS: ABG BASE EXCESS 13.9 (-2.0-2.0); ABG HCO3 45.1 MEQ/L (22.0-26.0); ABG O2 SATURATION 96.1 % (95.0-99.0); ABG PARTIAL PRESSURE O2 95.2 mmHg (75.0-100.0); ABG STANDARD HCO3 37.9 MEQ/L (22.0-26.0); ABG TOTAL CO2 47.7 MEQ/L (23.0-31.0); ABG pH (ARTERIAL) 7.348 UNITS (7.350-7.450)
--- NOTE | 2018-10-02 09:32 | REP ---
PORTABLE CHEST: Single portable view of the chest is performed. Comparison 09/15/2018 as well as other prior exams. There is better aeration of the right lung base compared to the prior study while the left lung appears unchanged. There may be some mild bibasilar atelectasis/infiltrate. Prominent cardiac silhouette is unchanged. There is calcification of the thoracic aorta. Severe curvature of the spine is again noted convex to the right in the thoracic region. There is a single lead pacemaker again noted. IMPRESSION: Possibly mild bibasilar atelectasis/infiltrate, significantly improved on the right and unchanged on the left. Electronically Signed by Abhi Rao MD 10/02/2018 04:25 P
[2018-10-02] MEDS ORDERED: MAGN400T PO (09:59)
[2018-10-02] MEDS ORDERED: TORS20TA2 PO (09:59)
[2018-10-02] MEDS ORDERED: ALBU83IN INH (09:59)
[2018-10-02] MEDS ORDERED: ONDANSETRON 4MG/2ML VIAL (J2405) IV PRN (10:30)
[2018-10-02] MEDS ORDERED: ALBUTEROL SULFATE 2.5 MG/0.5 ML INH NEB SOLN NEB PRN (10:30)
[2018-10-02] MEDS: IPRATROPIUM 0.5MG/ALBUTEROL 2.5MG INH SOL UD 3ML (DUONEB)(J7620) NEB SCH ×3 (12:00→18:43)
[2018-10-02] MEDS: ENOXAPARIN 40 MG/0.4 ML SYRINGE (J1650) SC SCH (13:04)
[2018-10-02 13:34] LABS: ABG BASE EXCESS 11.9 (-2.0-2.0); ABG HCO3 40.9 MEQ/L (22.0-26.0); ABG O2 SATURATION 97.4 % (95.0-99.0); ABG PARTIAL PRESSURE O2 96.7 mmHg (75.0-100.0); ABG STANDARD HCO3 35.7 MEQ/L (22.0-26.0); ABG TOTAL CO2 43.1 MEQ/L (23.0-31.0); ABG pH (ARTERIAL) 7.385 UNITS (7.350-7.450)
[2018-10-02 15:20] LABS: BLOOD UREA NITROGEN 54 MG/DL (7-18); CALCIUM LEVEL 9.1 MG/DL (8.8-10.2); CARBON DIOXIDE LEVEL 41 MEQ/L (21-32); CHLORIDE LEVEL 86 MEQ/L (98-107); CREATININE FOR GFR 1.09 MG/DL (0.70-1.30); GLOMERULAR FILTRATION RATE > 60.0 (>42); GLUCOSE, FASTING 95 MG/DL (70-100); POTASSIUM SERUM 3.7 MEQ/L (3.5-5.1); SODIUM LEVEL 135 MEQ/L (136-145)
[2018-10-02] MEDS ORDERED: NS 1,000 ML IV ONE ×2 (15:30→17:30)
--- NOTE | 2018-10-02 15:46 | CR ---
DATE OF CONSULTATION: 10/02/2018 We were asked by the hospitalist for consultation on Mr. Manuel Flores. Mr. Flores is a patient of Dr. Olguin in the office who was recently hospitalized about a month ago for acute on chronic hypercapnic respiratory failure along with hypotension and dehydration. The patient comes in today with similar symptoms. He had reported a week long history of progressive shortness of breath. The patient does have a significant cardiac history including coronary artery disease and congestive heart failure with an ejection fraction (EF) of between 20-25%. He has significant restrictive lung disease secondary to kyphoscoliosis and polio. He is on a delicate balance of diuretics for his history of congestive heart failure and as noted above has been hospitalized in the past for dehydration and respiratory failure. History is difficult to elicit from the patient. He is able to give me some history of his current complaint including progressive shortness of breath for about a week. He is unclear whether or not he has had a productive cough. He denies any pain or chest pain. He denies any definite fevers or chills. The patient is on bilevel positive airway pressure (BiPAP) for ventilation as an outpatient due to his restrictive lung disease from his kyphoscoliosis and polio. He was admitted today with acute on chronic hypercapnic respiratory failure. REVIEW OF SYSTEMS: Review of systems somewhat difficult to elicit due to the patient having BiPAP mask on and some difficulty with him answering questions. See history of present illness (HPI) for symptoms the patient was able describe. PAST MEDICAL HISTORY: 1. Ischemic cardiomyopathy with chronic systolic and diastolic congestive heart failure with ejection fraction of 20-25%. The patient is followed by his system administrator Dr. Adams. 2. Status post automatic implantable cardioverter defibrillator (AICD)/defibrillator placement single lead. 3. Coronary artery disease. 4. History of myocardial infarction. 5. 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 6. History of prostate cancer. 7. 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 8. Abdominal mass. 9. Osteoporosis. 10. History of polio. 11. History of spinal fusion at age 15. 12. Remote history of tobacco use. SOCIAL HISTORY: The patient lives with his . He has a remote history of tobacco use. He does not drink alcohol or use drugs. FAMILY HISTORY: The patient had a mother with history of coronary artery disease. MEDICATIONS: - pravastatin 10 mg by mouth nightly - multivitamin by mouth daily - calcium/vitamin D3/vitamin K by mouth daily - carvedilol 3.125 mg 1/2 tablet by mouth twice a day - Prolia 60 mg subcu every 6 months - vitamin D3 2000 units by mouth daily - cetirizine 10 mg by mouth daily - metolazone 2.5 mg by mouth every other day - albuterol nebulizers every 4 hours as needed - torsemide 20 mg by mouth daily - magnesium oxide 4 mg by mouth daily ALLERGIES: PENICILLIN and LATEX. PHYSICAL EXAMINATION: Vital signs: Temperature 98.1, pulse 63, respiratory rate 20, blood pressure is 91/54 with a mean arterial pressure (MAP) of 68. Pulse is 62. Pulse oximetry 100% on BiPAP 20/12 with FiO2 of 30. General: The patient is alert, somewhat slow to answer but does appear that he knows where he is. He recognizes myself and Dr. Olguin. He is using by a BiPAP mask. He appears frail. HEENT: Head is normocephalic, atraumatic. Moist mucous membranes. Tongue midline. Pupils are reactive. Neck: Neck is supple. No cervical lymphadenopathy. No jugular venous distention (JVD). Trachea is midline. Cardiovascular: Regular rate and rhythm. S1, S2. No murmurs. Pulmonary: Breath sounds are decreased but without rales, rhonchi, wheezes or crackles. There is no dullness to percussion. The patient is barrel-chested and there is obvious malformation in rotation of the chest. Abdomen: Positive bowel sounds, soft and nontender. Extremities: The patient does have significant muscle wasting. There is malformation from his history of polio. There is some trace pitting edema to the thighs, bilateral lower extremities. The patient does appear to have some cyanosis of the fingertips and toes. LABORATORY DATA: Initial blood gas with pH of 7.312, pCO2 of 89.6, pO2 of 132.6. Blood gas repeated at 1320 p.m. pH was 7.385, pCO2 was 70.0, pO2 96.7. WBC 5.5, hemoglobin 18.4, hematocrit 57.2, platelets 128. Sodium 135, potassium 4.9, chloride 78, carbon dioxide 45, BUN 58, creatinine 1.33, glucose 163, lactic acid 1.3, calcium 10.4, magnesium 2.5, total bilirubin 3.1, direct bili 0.5, AST 83, ALT is 33, alkaline phosphatase 107, CK 88, CK-MB 6.0, CK-MB relative index 6.25. Troponin I 0.25. BNP 6993. Total protein 8.3, albumin 4.4, lipase 392. Chest x-ray is compared with prior chest x-ray from 09/15/2018 and does show overall improved aeration especially on the right. There is possible bibasilar atelectasis. The single lead pacemaker is noted. There is significant curvature of the spine in that it is convex the right. ASSESSMENT AND PLAN: Acute on chronic hypercapnic respiratory failure. The patient was placed on BiPAP at 20/12. Arterial blood gas (ABG) does show improvement from his initial ABG to most recent ABG with pH that is now normal and CO2 that has improved to 70. The patient does have respiratory acidosis with likely contraction alkalosis. He does appear dry on exam. He is hemoconcentrated with a hematocrit that is increased to 57.2 and he is hypotensive. He is getting fluids with an initial bolus of 500 in the emergency room (ER) and a secondary bolus of 500 in the intensive care unit (ICU). Will continue to monitor and give more fluid if needed. Will need to be very careful with fluid as the patient does have congestive heart failure with an EF of 20- 25. His outpatient diuretics have been held and will likely need to be restarted once he is stable and no longer dehydrated and no longer exhibiting hemoconcentration labs. He will be made nothing by mouth while on BiPAP. We will continue to monitor closely. Total critical care time excluding all procedures was 60 minutes. MTDD
--- NOTE | 2018-10-02 16:42 | HPEPDOC ---
General Date of Admission October 02, 2018 at 10:18 Date of Service: October 02, 2018 Chief Complaint The patient is a 73-year-old male admitted with a reason for visit of Acute Kidney Injury,Acute On Chronic Respiratory Failure. 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 The patient reports he also has some shortness of breath but denies any associated chest pain. Denies any significant cough. Reports some nausea but no vomiting. Denies any associated abdominal pain. Denies any problems or diarrhea or constipation. Denies any dysuria although he notes that his urine betancourt d been darker lately. Also reports decreased oral intake. Reports usually ambulates using a walker. The patient was unable to answer limited questions as he is currently on BiPAP and was feeling short of breath with answering questions limiting history. Home Medications Scheduled Calcium Carb/Vitamin D3/Vit K1 (Viactiv Soft Chew) 1 Chw Chw, 1 CHW PO DAILY, (Reported) Carvedilol (Carvedilol) 3.125 Mg Tablet, 0.5 TAB PO BID, (Reported) take if SBP > 95 Cetirizine HCl (Cetirizine HCl) 10 Mg Tablet, 10 MG PO DAILY, (Reported) Cholecalciferol (Vitamin D3) (Vitamin D3) 1,000 Unit Tablet, 2,000 UNIT PO DAILY, (Reported) Denosumab Injection (Prolia) 60 Mg/1 Ml Syringe, 60 MG SC ASDIRECTED, (Reported) EVERY SIX MONTHS, LAST DOSE WAS IN APRIL 2018 Lactose-Reduced Food (Ensure Active High Protein) 1 Liq Liq, 1 LIQ PO DAILY, (Reported) Magnesium Oxide (Magnesium Oxide) 400 Mg Tablet, 400 MG PO DAILY, (Reported) Metolazone (Metolazone) 2.5 Mg Tablet, 2.5 MG PO Q2D, (Reported) Multivitamins (Thera M Plus Tablet) 1 Tab Tab, 1 TAB PO DAILY, (Reported) Pravastatin Sodium (Pravastatin Sodium) 10 Mg Tab, 10 MG PO QHS, (Reported) Torsemide (Torsemide) 20 Mg Tablet, 20 MG PO QPM, (Reported) Scheduled PRN Albuterol Sulf (Albuterol Sulfate) 2.5 Mg/3 Ml Vial.neb, 2.5 MG INH Q4H PRN for SHORTNESS OF BREATH, (Reported) DOES NOT TAKE BECAUSE IT MAKES HIM FEEL ANXIOUS Allergies Coded Allergies: Penicillins (Verified Allergy, Intermediate, hives, 10/02/18) latex (Verified Allergy, Intermediate, rash , 10/02/18) Past Medical History Medical History Coronary artery disease/ID, ischemic cardiopathy with chronic combined systolic and diastolic congestive heart failure baseline EF 20-25%, restrictive lung disease secondary to 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, spinal fusion, osteoporosis, prostate cancer status post radiation, previous intubation, previous cardiogenic shock, 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 Currently on BiPAP. No overt distress at this time although seemed to get short of breath with talking. Seemed a little tired on talking.) Eye Exam: Positive: PERRLA ENT Exam: Positive: Mucous membr. moist/pink Chest Exam: Positive: Other (diminished air entry at bilateral lung clancy but no overt wheezing, no overt crackles and no overt rhonchi) Heart Exam: Positive: Rate Normal, Regular Rhythm, Normal S1, Normal S2 Abdomen Exam: Positive: Soft; Negative: Tenderness Extremity Exam: Positive: Other (bilateral lower extremity foot drop) Skin Exam: Negative: Rash Neuro Exam: Positive: Other (awake, alert, oriented 3. Moving all 4 extremities to command but does have chronic bilateral lower extremity foot drop) Vital Signs Vital Signs Date Time Temp Pulse Resp B/P (MAP) Pulse Ox O2 Delivery O2 Flow Rate FiO2 10/02/18 15:19 60 20 82/50 (61) 100 30 10/02/18 12:15 98.1 10/02/18 11:47 Ventilator 10/02/18 07:31 2.0 Laboratory Data Labs 24H Laboratory Tests 2 10/02/18 06:52: Anion Gap 12, Glomerular Filtration Rate 56.3, Calcium Level 10.4H, Magnesium Level 2.5H, Aspartate Amino Transf (AST/SGOT) 83H, Alanine Aminotransferase (ALT/SGPT) 33, Alkaline Phosphatase 107, Total Bilirubin 3.1H, Direct Bilirubin 0.5H, Total Creatine Kinase 88, Creatine Kinase MB 6.0H, Creatine Kinase MB Relative Index 6.25H, Troponin I 0.25H, IM-Gyy-R-Type Natriuretic Peptide 6993H, Total Protein 8.3H, Albumin 4.4, Albumin/Globulin Ratio 1.13, Lipase 392 10/02/18 06:55: Blood Gas Bicarbonate Standard 35.8H, Arterial Blood pH 7.312L, Arterial Blood Partial Pressure CO2 89.6*H, Arterial Blood Partial Pressure O2 132.6H, Arterial Blood Total CO2 47.1H, Arterial Blood HCO3 44.3H, Arterial Blood Base Excess 11.8H, Arterial Blood Oxygen Saturation 98.2 10/02/18 07:21: Immature Granulocyte % (Auto) 0.4, White Blood Count 5.5, Red Blood Count 5.35, Hemoglobin 18.4H, Hematocrit 57.2H, Mean Corpuscular Volume 106.9H, Mean Corpuscular Hemoglobin 34.4H, Mean Corpuscular Hemoglobin Concent 32.2, Red Cell Distribution Width 14.2, Platelet Count 128L, Neutrophils (%) (Auto) 85.5H, Lymphocytes (%) (Auto) 6.9L, Monocytes (%) (Auto) 6.7H, Eosinophils (%) (Auto) 0.0, Basophils (%) (Auto) 0.5, Neutrophils # (Auto) 4.7, Lymphocytes # (Auto) 0.4L, Monocytes # (Auto) 0.4, Eosinophils # (Auto) 0.0, Basophils # (Auto) 0.0, Nucleated Red Blood Cells % (auto) 0.0 10/02/18 08:55: Blood Gas Bicarbonate Standard 37.9H, Arterial Blood pH 7.348L, Arterial Blood Partial Pressure CO2 84.0*H, Arterial Blood Partial Pressure O2 95.2, Arterial Blood Total CO2 47.7H, Arterial Blood HCO3 45.1H, Arterial Blood Base Excess 13.9H, Arterial Blood Oxygen Saturation 96.1 10/02/18 09:55: Lactic Acid Level 1.3 10/02/18 13:20: Blood Gas Bicarbonate Standard 35.7H, Arterial Blood pH 7.385, Arterial Blood Partial Pressure CO2 70.0*H, Arterial Blood Partial Pressure O2 96.7, Arterial Blood Total CO2 43.1H, Arterial Blood HCO3 40.9H, Arterial Blood Base Excess 11.9H, Arterial Blood Oxygen Saturation 97.4 10/02/18 13:46: Anion Gap 8, Glomerular Filtration Rate > 60.0, Blood Urea Nitrogen 54H, Creatinine 1.09, Sodium Level 135L, Potassium Level 3.7#, Chloride Level 86L, Carbon Dioxide Level 41H, Calcium Level 9.1 CBC/BMP Laboratory Tests 10/02/18 06:52 10/02/18 07:21 Red Blood Count 5.35, Mean Corpuscular Volume 106.9 H, Mean Corpuscular Hemogl obin 34.4 H, Mean Corpuscular Hemoglobin Concent 32.2, Red Cell Distribution Width 14.2, Neutrophils (%) (Auto) 85.5 H, Lymphocytes (%) (Auto) 6.9 L, Monocytes (%) (Auto) 6.7 H, Eosinophils (%) (Auto) 0.0, Basophils (%) (Auto) 0.5, Neutrophils # (Auto) 4.7, Lymphocytes # (Auto) 0.4 L, Monocytes # (Auto) 0.4, Eosinophils # (Auto) 0.0, Basophils # (Auto) 0.0 10/02/18 13:46 Calcium Level 9.1 Microbiology Microbiology 10/02/18 Blood Culture, Received Pending 10/02/18 Blood Culture, Received Pending 10/02/18 Respiratory Virus Panel (PCR) (HENRRY) - Final, Complete Assessment/Plan Current Medications Albuterol Sulfate (Proventil Neb) 2.5 mg Q4HP PRN NEB SHORTNESS OF BREATH; Start 10/02/18 at 10:30 Albuterol/ Ipratropium (Duoneb (Ipr 0.5mg/Alb 2.5mg)) 3 ml RQID NEB ; Start 10/02/18 at 12:00 Enoxaparin Sodium (Lovenox) 40 mg DAILY SC Last administered on 10/02/18at 13:0 4; Start 10/02/18 at 09:00 Ondansetron HCl (ZOFRAN INJection) 4 mg Q4HP PRN IV NAUSEA OR VOMITING; Start 10/02/18 at 10:30 Pantoprazole Sodium (Protonix) 40 mg DAILY IV Last administered on 10/02/18at 13:04; Start 10/02/18 at 09:00 Acute on chronic hypercapnic hypoxic respiratory failure: -Patient admitted to ICU -Continue BiPAP per pulmonology -Repeat ABG showing improvement -Watch for any fluid overload -Continue when necessary albuterol nebs Acute kidney injury likely secondary to dehydration from diuretics and poor oral intake: -Hold diuretics -Patient has received total 2 x 500 mL boluses -Curtis catheter was placed for accurate I's and O's in this critically ill patient -Watch for fluid overload given history of congestive heart failure with predisposition to going into fluid overload fairly quickly Elevated troponin: -Chronic - as far back as 2014, patient hasn't elevated troponins in the 0.14- 0.3 range at baseline -Denies any active chest pain -Hold carvedilol/statinmay resume these once blood pressure better and off BiPAP Hypotension: -Holding BP lowering medications/diuretics -careful IV hydration as noted above Chronic combined systolic and diastolic congestive heart failure: -Hold Coreg and diuretics as noted above. -Watch for fluid overload with IV hydration Gait difficulty secondary to bilateral foot drop and severe kyphoscoliosis from polio: -PT/OT evaluation once off BiPAP GI and DVT prophylaxis: -PPI, subcutaneous enoxaparin CODE STATUS: -DNR per previous MOLST. Patient unable to make decision regarding elective intubation at this time and wishes to discuss with his regarding same. Disposition: -Admit to ICU. Anticipated length of stay more than 2 midnights. Anticipate eventual discharge home once medically stable Plan / VTE VTE Prophylaxis Ordered?: Yes CAROL WALLIS MD October 02, 2018 16:32
[2018-10-02 18:14] LABS: TROPONIN I 0.24 NG/ML (< 0.10)
[2018-10-02] MEDS: NS 1,000 ML IV SCH (21:39)
[2018-10-02] MEDS ORDERED: CEPACOL LOZENGE PO PRN (21:52)
[2018-10-03] VITALS (28 sets, daily range): BP systolic 77–103; BP diastolic 47–59
[2018-10-03] MEDS: NS 1,000 ML IV SCH (03:57)
[2018-10-03 05:40] LABS: ABG HCO3 31.6 MEQ/L (22.0-26.0); ABG O2 SATURATION 94.7 % (95.0-99.0); ABG PARTIAL PRESSURE CO2 40.2 mmHg (35.0-45.0); ABG PARTIAL PRESSURE O2 66.7 mmHg (75.0-100.0); ABG STANDARD HCO3 31.8 MEQ/L (22.0-26.0); ABG TOTAL CO2 32.9 MEQ/L (23.0-31.0); ABG pH (ARTERIAL) 7.514 UNITS (7.350-7.450)
--- NOTE | 2018-10-03 05:46 | ECGEPIP ---
[facility] - ED Test Date: 2018-10-02 Pat Name: SHE QUIGLEY Department: Room: [place] [address] Gender: Male Clinical Dental Technician: magdiel : [id number] Requested By: LYNN MATIAS Order Number: [id number] Reading MD: Tushar Mendoza Measurements Intervals [place] Rate: 120 P: RI: -1 QRS: QRSD: 183 T: 85 QT: 440 QTc: 622 Interpretive Statements SINU SRHYTHM WITH SINUS ARRHYTHMIA WITH FIRST DEGREE AV BLOCK RIGHT ATRIAL ENLARGEMENT INTRAVENTRICULAR CONDUCTION DELAY BASELINE ARTIFACT AFFECTS INTERPRETATION SIMILAR TO 08/27/18 Electronically Signed on 10-03-2018 5:45:51 EDT by Tushar Mendoza
[2018-10-03 07:52] LABS: BASO # 0.1 10^3/uL (0.0-0.2); BASO % 1.6 % (0.0-1.0); EOS % 1.2 % (0.0-3.0); HEMATOCRIT 48.2 % (42.0-52.0); LYMPH # 0.5 10^3/uL (1.5-4.5); LYMPH % 14.9 % (24.0-44.0); MEAN CORPUSCULAR HEMOGLOBIN 34.9 pg (27.0-33.0); MEAN CORPUSCULAR HGB CONC 31.7 g/dl (32.0-36.5); MEAN CORPUSCULAR VOLUME 109.8 fl (80.0-96.0); MONO # 0.5 10^3/uL (0.0-0.8); MONO % 14.3 % (0.0-5.0); NEUTROPHILS # 2.2 10^3/uL (1.8-7.7); NEUTROPHILS % 67.4 % (36.0-66.0); RED BLOOD COUNT 4.39 10^6/uL (4.30-6.10); WHITE BLOOD COUNT 3.2 10^3/uL (4.0-10.0)
[2018-10-03] MEDS: IPRATROPIUM 0.5MG/ALBUTEROL 2.5MG INH SOL UD 3ML (DUONEB)(J7620) NEB SCH ×4 (08:11→20:01)
[2018-10-03 08:18] LABS: ALBUMIN 3.2 GM/DL (3.2-5.2); ALT/SGPT 25 U/L (12-78); BILIRUBIN,TOTAL 1.9 MG/DL (0.2-1.0); BLOOD UREA NITROGEN 44 MG/DL (7-18); CARBON DIOXIDE LEVEL 39 MEQ/L (21-32); CHLORIDE LEVEL 94 MEQ/L (98-107); CREATININE FOR GFR 0.79 MG/DL (0.70-1.30); GLOMERULAR FILTRATION RATE > 60.0 (>42); GLUCOSE, FASTING 80 MG/DL (70-100); PHOSPHORUS LEVEL 2.3 MG/DL (2.5-4.9); SODIUM LEVEL 137 MEQ/L (136-145); TOTAL PROTEIN 5.5 GM/DL (6.4-8.2); TROPONIN I 0.29 NG/ML (< 0.10)
[2018-10-03 08:29] LABS: HEMOGLOBIN 15.3 g/dl (13.5-17.5); PLATELET COUNT, AUTOMATED 89 10^3/uL (150-450)
[2018-10-03] MEDS ORDERED: guaiFENesin SYRUP 200 MG/10 ML UDC PO PRN (09:00)
[2018-10-03] MEDS: ENOXAPARIN 40 MG/0.4 ML SYRINGE (J1650) SC SCH ×2 (09:00→10:38)
--- NOTE | 2018-10-03 10:24 | REP ---
PORTABLE CHEST X-RAY: Single view. HISTORY: Respiratory failure. COMPARISON CHEST X-RAY: October 02, 2018. FINDINGS: A severe dextroconvex thoracic scoliosis is again seen. Moderate cardiomegaly is observed as before with a unipolar pacemaker in the right heart via the left side. There appear to be some increased markings in the right lung base today with slight blunting of the right lateral pleural angle. No change in the left hemithorax. IMPRESSION: Cardiomegaly with pacemaker. Severe scoliosis. Increased markings in the right base today with slight blunting of the right lateral pleural angle. Electronically Signed by Don Ramirez MD 10/03/2018 03:54 P
[2018-10-03] MEDS: PANTOPRAZOLE 40MG TAB (PROTONIX) PO SCH (10:38)
[2018-10-03] MEDS: MAGNESIUM OXIDE 400 MG TAB (MAG-OX) PO SCH (10:38)
[2018-10-03] MEDS: POTASSIUM CHLORIDE 10 MEQ SR TABLET PO SCH ×2 (10:38→16:38)
[2018-10-03] MEDS: CETIRIZINE (ZyrTEC) 10 MG TAB PO SCH (10:38)
[2018-10-03] MEDS: LevoFLOXacin 500 MG TABLET PO SCH (11:36)
--- NOTE | 2018-10-03 11:42 | REP ---
Bilateral lower extremity Duplex Doppler venous ultrasound: Real time compression and duplex Doppler interrogation of the bilateral lower extremity deep venous system is performed. Bilaterally, the common femoral, superficial femoral and popliteal veins are fully compressible with transducer pressure and demonstrate normal spontaneous and phasic flow, without evidence of deep venous thrombosis. Impression: No evidence of deep venous thrombosis of the bilateral lower extremity femoral popliteal venous system. Electronically Signed by Abhi Rao MD 10/03/2018 11:34 A
[2018-10-03] MEDS: ACETYLCYSTEINE 20% 4 ML VIAL (200MG/ML) INH SCH ×2 (11:49→20:02)
--- NOTE | 2018-10-03 13:37 | CCN ---
DATE: 10/03/2018 Patient was seen and examined this morning during bedside rounds. The patient has been on BiPAP yesterday during the day was some breaks periodically as needed. He was on BiPAP as well overnight. The patient did report some difficulty in tolerating BiPAP with a higher pressure of 22/10. His settings were adjusted to 20/10 overnight, and he was able to tolerate the BiPAP more. The patient has had episodes of some lower blood pressure yesterday. However, he has continued to be mentating well and does continue to have urine output. He is on IV fluids currently and he did receive multiple boluses of normal saline yesterday. This morning he reports his breathing is slightly improved. He is on room air and does not appear to be in significant respiratory distress. He is able to answer questions and speak in complete sentences. He does continue to report significant cough with mucus that is difficult to expectorate. He had been using an Acapella device at home to help with mucus clearance. He tried nebulizer treatment at home; however, he felt that he had some difficulty tolerating the nebulizer, so was not using it regularly at home. Here he has been getting nebulizer treatments regularly and not having any difficulty. He had no fevers overnight. He denies any chest pain currently. No abdominal pain. No nausea or vomiting. PHYSICAL EXAMINATION: Temperature 98, blood pressure 88/50, pulse 58, O2 sat 96% on 2 liters, respirations 22, ins 2 liters, out 184 mL. General: The patient is a frail male with severe kyphoscoliosis who was sitting in bed in no acute distress currently. HEENT: Normocephalic, atraumatic. He has moist mucous membranes. Pupils are reactive to light bilaterally. Neck is supple. No jugular venous distention (JVD) noted. Cardiovascular: Regular rate and rhythm. Normal S1-S2. Unable to appreciate any murmurs. Pulmonary: He has coarse rhonchi in the bases with some more diminished breath sounds on the right compared to the left. He has obvious kyphoscoliosis and rotation of his chest. Abdomen is soft, nontender, nondistended. Positive bowel sounds. Extremities: He has mild +1 pitting edema in the bilateral lower extremities with some significant muscle wasting and some malformation from his history of polio. The patient has some cyanosis in his fingertips and toes. LABS: WBC 3.2, hemoglobin 15.3, platelets 89. Chemistry sodium was 137, potassium 3.0, chloride 94, bicarb 39, BUN 44, creatinine 0.79, glucose is 80, alkaline phosphatase 2.3, bili trending down to 1.9, troponin 0.29. ABG pH 7.514, pCO2 of 40.2, pO2 of 66.7. Chest x-ray shows cardiomegaly with pacemaker, severe scoliosis and some increased markings in the right base with some slight blunting of the right lateral pleural angle. ASSESSMENT/PLAN: Patient is a 73-year-old male with a past medical history of CHF, CAD, prostate cancer status post radiation, history of PPM/ AICD, history of restrictive lung disease secondary to severe kyphoscoliosis from polio with chronic hypercarbic respiratory failure who presented with complaints of increasing weakness and nausea. The patient was found to have acute on chronic hypercarbic respiratory failure with evidence of respiratory acidosis and some likely contraction alkalosis secondary to dehydration. His hematocrit appears hemoconcentrated compared to his baseline. He also had evidence of BYRON likely due to dehydration. The patient was given IV fluids with improvement in his hematocrit and an improvement in his creatinine. He was placed on BiPAP and with IV fluids had an improvement in his metabolic alkalosis and his ABG shows improvement in his hypercarbia as well. Of note, the patient has complained of increasing cough with mucus that is difficult to expectorate. He does have some leukopenia today and his chest x-ray showed some increased markings in his right base. He may have possible aspiration pneumonia. The patient's blood pressures have also been on the lower side despite IV fluid hydration. Therefore will start him on empiric antibiotics with Levaquin for possible aspiration pneumonia. He does appear to have some increased lower extremity edema today and his hematocrit appears to be at his baseline currently; therefore, will also discontinue IV fluids given his history of reduced EF heart failure and continue to monitor his blood pressure closely. - Would start the patient on Acapella as well as with Mucomyst with albuterol nebulizers for pulmonary toilet. Would check a sputum culture as well. Will continue to encourage p.o. intake and continue to monitor his urine output and his renal function. The patient does have some mild troponins likely in the setting of demand ischemia. His statin was on hold but AST, ALT is trending down. Would consider restarting his statin and aspirin given his significant cardiac history and evidence of demand ischemia. The patient has hypokalemia also on labs today, would replete and continue to monitor. Continue him on BiPAP at night with 20/12. The patient can use his home BiPAP tonight and will follow up a repeat ABG in the morning. Continue with DuoNebs. Continue DVT prophylaxis. The patient is DO NOT RESUSCITATE with a trial of intubation. Total critical care time spent, not including any procedures, approximately 45 minutes. MTDD
[2018-10-03] MEDS ORDERED: POTASSIUM CHLORIDE 10 MEQ SR TABLET As Ordered ONE (16:37)
--- NOTE | 2018-10-03 17:32 | IPNPDOC ---
Subjective Date Seen The patient was seen on 10/03/18. Subjective Chief Complaint/HPI Weakness, nausea and concerns regarding possible dehydration, shortness of breath Events since last encounter I personally saw and examined the patient earlier this morning. He was off the BiPAP and on nasal cannula. Reports her shortness of breath seems a little better. Still has some cough. Denies any chest pain. No nausea or vomiting. Denies any abdominal pain. Has a Curtis catheter in place. Denies any constipation. His aunt reports pain involving his right calfshe reports this started about a couple of weeks ago when he was working with physical therapy during his prior hospital stay and heard a "pop" following which he has been having the ache/pain Objective Physical Examination General Exam: Positive: Alert, Other (sitting propped up in bedno distress) Eye Exam: Positive: PERRLA ENT Exam: Positive: Mucous membr. moist/pink Chest Exam: Positive: Other (adventitious sounds related to secretions. No overt crackles or wheeze on auscultation) Heart Exam: Positive: Rate Normal, Regular Rhythm, Normal S1, Normal S2 Abdomen Exam: Positive: Soft; Negative: Tenderness Extremity Exam: Positive: Other (bilateral lower extremity 1+ to 2+ pitting edema below knee. Bilateral lower extremity foot drop. Bruising noted over the posterior aspect of the right calf) Skin Exam: Positive: Other skin issue (slight bruising noted over the posterior aspect of the right calfthis appears to be old.) Neuro Exam: Positive: Other (awake, alert, oriented 3. Moving all 4 extremities to command. Chronic bilateral lower extremity foot drop) Assessment /Plan Assessment Chest x-ray: IMPRESSION: Cardiomegaly with pacemaker. Severe scoliosis. Increased markings in the right base today with slight blunting of the right lateral pleural angle. Bilateral lower extremity hypokalemia venous duplex: Impression: No evidence of deep venous thrombosis of the bilateral lower extremity femoral popliteal venous system. Acute on chronic hypercapnic hypoxic respiratory failure: -Off BiPAP this morningappreciate input by pulmonology -Continue BiPAP daily at bedtime and when sleeping -Watch for any fluid overload -Continue when necessary albuterol nebs Acute kidney injury likely secondary to dehydration from diuretics and poor oral intake: -Holding diuretics -Patient has received total 3 L fluids since admission - off IV fluids now -Creatinine has improved and is back to baseline -Urine output is improving -Curtis catheter for accurate I's and O's -Watch for fluid overload Elevated troponin: -Chronic - as far back as 2014, patient hasn't elevated troponins in the 0.14- 0.3 range at baseline -Denies any active chest pain -Resume aspirin and statin. Hold carvedilol in setting of low blood pressures Hypotension: -Holding BP lowering medications/diuretics -Does seem to run low blood pressures even at home -Appreciate input by pulmonologygiven concerns regarding possible right lower lobe aspiration pneumonia, patient will be started on levofloxacin Right lower lobe aspiration pneumonia present on admission: -Levofloxacin started by pulmonology as noted above -Albuterol/Mucomyst Nebs, supplemental oxygen, flutter valve Chronic combined systolic and diastolic congestive heart failure: -Hold Coreg and diuretics as noted above. -Watch for fluid overload Hypokalemia: -Replete and recheck Gait difficulty secondary to bilateral foot drop and severe kyphoscoliosis from polio: -PT/OT evaluation - patient reported he did not want to do any stairs with physical therapy but would be willing to have transfers/gait/ambulation evaluation Chronic thrombocytopenia: -Counts lower today likely secondary to IV hydration and dilutional change -No bleeding -Discontinue enoxaparin -Monitor platelet counts Bilateral lower extremity edema: -No DVT on venous ultrasound -Patient has a slight bruising in the right calfthis is likely related to an injury reported by the patient during his previous hospital stay GI and DVT prophylaxis: -PPI, discontinued subcutaneous enoxaparin in setting of thrombocytopenia - ordered SCDs instead Plan/VTE VTE Prophylaxis Ordered?: Yes VS, I&O, 24H, Fishbone Vital Signs/I&O Vital Signs Date Time Temp Pulse Resp B/P (MAP) Pulse Ox O2 Delivery O2 Flow Rate FiO2 10/03/18 16:00 98.7 62 20 89/53 (65) 93 10/03/18 08:05 21 10/03/18 07:00 2.0 10/02/18 11:47 Ventilator I&O- Last 24 Hours up to 6 AM 10/03/18 06:00 Intake Total 3420 ml Output Total 359 ml Balance 3061 ml Laboratory Data 24H LABS Laboratory Tests 2 10/02/18 19:45: Troponin I 0.30#H 10/03/18 05:28: Blood Gas Bicarbonate Standard 31.8H, Arterial Blood pH 7.514H, Arterial Blood Partial Pressure CO2 40.2, Arterial Blood Partial Pressure O2 66.7L, Arterial Blood Total CO2 32.9H, Arterial Blood HCO3 31.6H, Arterial Blood Base Excess 8.0H, Arterial Blood Oxygen Saturation 94.7L 10/03/18 07:32: Troponin I 0.29H, Immature Granulocyte % (Auto) 0.6, White Blood Count 3.2L, Red Blood Count 4.39, Hemoglobin 15.3#, Hematocrit 48.2, Mean Corpuscular Volume 109.8H, Mean Corpuscular Hemoglobin 34.9H, Mean Corpuscular Hemoglobin Concent 31.7L, Red Cell Distribution Width 14.3, Platelet Count 89L, Neutrophils (%) (Auto) 67.4H, Lymphocytes (%) (Auto) 14.9L, Monocytes (%) (Auto) 14.3H, Eosinophils (%) (Auto) 1.2, Basophils (%) (Auto) 1.6H, Neutrophils # (Auto) 2.2, Lymphocytes # (Auto) 0.5L, Monocytes # (Auto) 0.5, Eosinophils # (Auto) 0.0, Basophils # (Auto) 0.1, Nucleated Red Blood Cells % (auto) 0.0, Immature Platelet Fraction 15.0H, Anion Gap 4L, Glomerular Filtration Rate > 60.0, Blood Urea Nitrogen 44H, Creatinine 0.79, Sodium Level 137, Potassium Level 3.0L, Chloride Level 94L, Carbon Dioxide Level 39H, Calcium Level 8.0L, Phosphorus Level 2.3L, Aspartate Amino Transf (AST/SGOT) 39H, Alanine Aminotransferase (ALT/SGPT) 25, Alkaline Phosphatase 66, Total Bilirubin 1.9H, Total Protein 5.5#L, Albumin 3.2#, Magnesium Level 2.0, Albumin/Globulin Ratio 1.39 CBC/BMP Laboratory Tests 10/03/18 07:32 Red Blood Count 4.39, Mean Corpuscular Volume 109.8 H, Mean Corpuscular Hemoglobin 34.9 H, Mean Corpuscular Hemoglobin Concent 31.7 L, Red Cell Distribution Width 14.3, Neutrophils (%) (Auto) 67.4 H, Lymphocytes (%) (Auto) 14.9 L, Monocytes (%) (Auto) 14.3 H, Eosinophils (%) (Auto) 1.2, Basophils (%) (Auto) 1.6 H, Neutrophils # (Auto) 2.2, Lymphocytes # (Auto) 0.5 L, Monocytes # (Auto) 0.5, Eosinophils # (Auto) 0.0, Basophils # (Auto) 0.1, Calcium Level 8.0 L, Phosphorus Level 2.3 L, Aspartate Amino Transf (AST/SGOT) 39 H, Alanine Aminotransferase (ALT/SGPT) 25, Alkaline Phosphatase 66, Total Bilirubin 1.9 H, Total Protein 5.5 #L, Albumin 3.2 # Microbiology Microbiology 10/02/18 Blood Culture - Preliminary, Resulted No growth after 24 hours . All specim... 10/02/18 Blood Culture - Preliminary, Resulted No growth after 24 hours . All specim... 10/02/18 Respiratory Virus Panel (PCR) (HENRRY) - Final, Complete CAROL WALLIS MD October 03, 2018 17:32
[2018-10-03] MEDS: PRAVASTATIN 10 MG TAB PO SCH (21:45)
[2018-10-04] VITALS (11 sets, daily range): BP systolic 88–105; BP diastolic 54–73
[2018-10-04 03:33] LABS: BASO % 0.6 % (0.0-1.0); EOS # 0.1 10^3/uL (0.0-0.50); EOS % 1.3 % (0.0-3.0); HEMATOCRIT 46.9 % (42.0-52.0); HEMOGLOBIN 15.3 g/dl (13.5-17.5); LYMPH # 0.6 10^3/uL (1.5-4.5); LYMPH % 13.2 % (24.0-44.0); MEAN CORPUSCULAR HEMOGLOBIN 35.3 pg (27.0-33.0); MEAN CORPUSCULAR HGB CONC 32.6 g/dl (32.0-36.5); MEAN CORPUSCULAR VOLUME 108.1 fl (80.0-96.0); MONO # 0.6 10^3/uL (0.0-0.8); MONO % 13.8 % (0.0-5.0); NEUTROPHILS # 3.3 10^3/uL (1.8-7.7); NEUTROPHILS % 70.7 % (36.0-66.0); RED BLOOD COUNT 4.34 10^6/uL (4.30-6.10); WHITE BLOOD COUNT 4.6 10^3/uL (4.0-10.0)
[2018-10-04 03:36] LABS: PLATELET COUNT, AUTOMATED 87 10^3/uL (150-450)
[2018-10-04 03:59] LABS: BLOOD UREA NITROGEN 42 MG/DL (7-18); CALCIUM LEVEL 7.5 MG/DL (8.8-10.2); CARBON DIOXIDE LEVEL 33 MEQ/L (21-32); CHLORIDE LEVEL 100 MEQ/L (98-107); CREATININE FOR GFR 0.59 MG/DL (0.70-1.30); GLOMERULAR FILTRATION RATE > 60.0 (>42); GLUCOSE, FASTING 78 MG/DL (70-100); MAGNESIUM LEVEL 2.5 MG/DL (1.8-2.4); PHOSPHORUS LEVEL 1.2 MG/DL (2.5-4.9); POTASSIUM SERUM 4.1 MEQ/L (3.5-5.1); SODIUM LEVEL 138 MEQ/L (136-145)
[2018-10-04 05:49] LABS: ABG BASE EXCESS 5.4 (-2.0-2.0); ABG HCO3 29.7 MEQ/L (22.0-26.0); ABG O2 SATURATION 95.9 % (95.0-99.0); ABG PARTIAL PRESSURE CO2 42.1 mmHg (35.0-45.0); ABG PARTIAL PRESSURE O2 76.1 mmHg (75.0-100.0); ABG STANDARD HCO3 29.2 MEQ/L (22.0-26.0); ABG pH (ARTERIAL) 7.466 UNITS (7.350-7.450)
[2018-10-04] MEDS: LevoFLOXacin 500 MG TABLET PO SCH (05:52)
--- NOTE | 2018-10-04 07:30 | REP ---
Clinical: Respiratory failure. Comparison: 10/03/2018. Findings: Mediastinum and cardiac silhouette are stable. Lower lobe opacities possible right pleural effusion cannot be excluded. Impression: Chronic stable changes. Cannot exclude superimposed lower lobe opacities and right pleural effusion. Electronically Signed by Fabio Nunez MD 10/04/2018 07:21 A
[2018-10-04] MEDS: IPRATROPIUM 0.5MG/ALBUTEROL 2.5MG INH SOL UD 3ML (DUONEB)(J7620) NEB SCH (08:00)
[2018-10-04] MEDS: ACETYLCYSTEINE 20% 4 ML VIAL (200MG/ML) INH SCH (08:00)
[2018-10-04] MEDS ORDERED: metOLazone 2.5 MG TAB PO SCH (09:00)
[2018-10-04] MEDS: NEUTRA-PHOS 1.5 GM PACKET PO SCH ×2 (10:05→20:47)
[2018-10-04] MEDS: VITAMIN D 1,000 INTERNATIONAL UNITS TABLET PO SCH (10:05)
[2018-10-04] MEDS: MULTIVITAMINS/MINERALS THERAP 1 TAB PO SCH (10:06)
[2018-10-04] MEDS: MAGNESIUM OXIDE 400 MG TAB (MAG-OX) PO SCH (10:06)
[2018-10-04] MEDS: PANTOPRAZOLE 40MG TAB (PROTONIX) PO SCH (10:06)
[2018-10-04] MEDS: CETIRIZINE (ZyrTEC) 10 MG TAB PO SCH (10:06)
[2018-10-04] MEDS: ASPIRIN 81 MG ENTERIC TAB PO SCH (10:06)
[2018-10-04] MEDS: CALCIUM/VITAMIN D 500 MG TAB PO SCH (10:06)
--- NOTE | 2018-10-04 12:11 | CCN ---
DATE: 10/04/2018 CRITICAL CARE PROGRESS NOTE The patient was seen and examined this morning during bedside rounds. The patient reports his breathing has improved. He continues to have cough; however it is difficult to expectorate mucus. He was tried on Mucomyst with his albuterol nebulizer yesterday; however, after the treatment, in the evening, he felt that he had difficulty with sleeping at night and with some anxiety. He has been using his Acapella device, however, is still not able to bring up any mucus. This morning, the patient is on room air and in no acute respiratory distress. He did use his home bilevel positive airway pressure (BiPAP) overnight and tolerated that well. He denies any chest pains, has no fevers or chills. No abdominal pain. No nausea or vomiting. PHYSICAL EXAMINATION: Temperature 98.7, pulse 69, respirations 18, blood pressure 99/60, oxygen saturation (O2 sat) 93% on room air. Intake 2.7, output 875 mL. General: The patient is a frail male with severe kyphoscoliosis who is sitting in bed in no acute respiratory distress currently. HEENT: Normocephalic, atraumatic. He has moist mucous membranes and pupils are reactive to light bilaterally. Neck is supple. No palpable adenopathy. Cardiovascular: Regular rate and rhythm. Normal S1, S2. Unable to appreciate any murmurs. Pulmonary: The patient has some diminished breath sounds on the right with some occasional coarse rhonchorous breath sounds, more on the right than the left. He does have some slight crackles in the left base. The patient also has obvious kyphoscoliosis and rotation of his chest. Abdomen is soft, nontender, nondistended. Positive bowel sounds. Extremities: Patient has increased +2 pitting edema in his bilateral lower extremities, as well as chronic muscle wasting and malformation from his polio. The patient has some cyanosis and chronic skin changes in his fingers and toes. LABORATORY DATA: WBC 4.6, hemoglobin 15.3, platelets are 87. Chemistry: Sodium is 138, potassium 4.1, chloride 100, bicarbonate 33, BUN 42, creatinine 0.59, glucose is 78, calcium is 7.5, phosphorus is 1.2. ABG this morning: pH 7.406, pCO2 of 42.1, pO2 of 76.1. Chest x-ray continues to show cardiomegaly with pacemaker. There is severe scoliosis, which is chronic. He has some opacity in the right base with some slight blunting of the right lateral pleural angle. On the left side now, he appears to have some blunting and possible small effusion, which was not seen previously. ASSESSMENT/PLAN: The patient is a 73-year-old male with a history of congestive heart failure (CHF), coronary artery disease, prostate cancer - status post radiation, history of permanent pacemaker (PPM)/automatic implantable cardioverter defibrillator (AICD), history of restrictive lung disease secondary to his severe kyphoscoliosis from polio with chronic hypercarbic respiratory failure who presented with complaints of increased weakness and nausea. The patient was found to have acute on chronic hypercarbic respiratory failure with respiratory acidosis and also likely some contraction alkalosis secondary to dehydration. His hematocrit was also hemoconcentrated and elevated compared to his baseline. The patient also with acute kidney injury (BYRON), likely due to dehydration. He was given IV fluids with improvement in his creatinine and in his hematocrit. He was placed on BiPAP as well, and he had improvement in his hypercarbia. The patient was also noted to have a new infiltrate in his right base as well as some leukopenia, and he had complained of increasing cough. He was started on antibiotics with Levaquin for possible aspiration pneumonia. His leukopenia has improved. - The patient also had increased lower extremity edema and some evidence of small pleural effusion on his x-ray this morning. His diuretics were held previously due to the dehydration; however, would restart his diuretic with oral torsemide and hold the metolazone for now. Would follow up strict ins and outs and consider metolazone if needed to increase his diuresis. - Would continue with Levaquin for now. Will check a procalcitonin to determine antibiotic course and possible de-escalation. The patient was ordered for a sputum culture; however, he has been having difficulty expectorating a sample for his sputum culture. - Continue with Acapella. The patient was not able to tolerate the albuterol nebulizer and Mucomyst due to its side effects. Therefore, will change his nebulizer to Combivent and have him perform pulmonary toilet with his Acapella and Combivent. - The patient has a significant cardiac history. He did have some demand ischemia on admission. His statin was restarted. He does follow up with Dr. Adams as an outpatient, and he should followup with him upon discharge. - he patient has hypophosphatemia today. Would replete his phosphorus. - Continue with his home BiPAP. The patient can be downgraded to medical- surgical floor with continuous pulse oximetry. DVT prophylaxis. Code Status: DO NOT RESUSCITATE (DNR) with a trial of intubation. TOTAL CRITICAL CARE TIME SPENT NOT INCLUDING ANY PROCEDURES: Approximately 45 minutes. NUVIA
[2018-10-04] MEDS: COMBIVENT RESPIMAT 100-20MCG INHALER 4GM INH SCH ×3 (13:00→20:19)
--- NOTE | 2018-10-04 13:42 | IPNPDOC ---
Subjective Date Seen The patient was seen on 10/04/18. Subjective Chief Complaint/HPI Weakness, nausea and concerns regarding possible dehydration, shortness of breath Events since last encounter The patient used his home BiPAP last night. Currently using BiPAP on given sleeping or at nighttime. Shortness of breath appears to be improving. Still has some cough but having a hard time producing any sputum. Denies any associated chest pain. No overnight fevers/chills or sweats. No nausea or vomitingtolerat ing oral intake. Denies any abdominal pain. Curtis catheter was removed and patient has been urinating well. Denies any constipation. Objective Physical Examination General Exam: Positive: Alert, Other (sitting up at edge of bed. No distress.) Eye Exam: Positive: PERRLA ENT Exam: Positive: Mucous membr. moist/pink Chest Exam: Positive: Other (diminished air entry at particularly right lung base. No overt wheezing, no distress.) Heart Exam: Positive: Rate Normal, Regular Rhythm, Normal S1, Normal S2 Abdomen Exam: Positive: Soft; Negative: Tenderness Extremity Exam: Positive: Other (bilateral lower extremity edema below kneeswill place. Appears a little more prominent from yesterday.) Neuro Exam: Positive: Other (awake, alert, oriented 3. Moving all 4 extremities to command. Chronic bilateral lower extremity foot drop) Assessment /Plan Assessment Acute on chronic hypercapnic hypoxic respiratory failure: -Appreciate input by pulmonology -Continue BiPAP daily at bedtime and when sleeping -Patient was not tolerant albuterol/Mucomyst nebshas been changed to Combivent -Continue flutter valve -Resume torsemide in setting of lower extremity edema and pleural effusion Acute kidney injury likely secondary to dehydration from diuretics and poor oral intake: -Resolvedcreatinine 0.59 from 1.33 on admission -Patient received total 3 L fluids - off IV fluids now -Resume torsemide as noted above and monitor renal function. If required, we can add metolazone Elevated troponin: -Chronic - as far back as 2014, patient hasn't elevated troponins in the 0.14- 0.3 range at baseline -Denies any active chest pain -Continue aspirin and statin. Holding carvedilol in setting of low blood pressures Hypotension: -Blood pressures seem a little improvedpatient will be started on torsemide as noted above. Monitor. Right lower lobe aspiration pneumonia present on admission: -Levofloxacin started by pulmonology- D2 -Pro-calcitonin pending -Combivent, prn supplemental oxygen, flutter valve Chronic combined systolic and diastolic congestive heart failure: -Hold Coreg secondary to low blood pressure. Restarted torsemide. Hypokalemia: -Resolved Gait difficulty secondary to bilateral foot drop and severe kyphoscoliosis from polio: -PT/OT evaluation Chronic thrombocytopenia: -Counts lower today - acute dilutional -No bleeding -Off enoxaparin -Monitor platelet counts Bilateral lower extremity edema: -No DVT on venous ultrasound -Patient has a slight bruising in the right calfthis is likely related to an injury reported by the patient during his previous hospital stay GI and DVT prophylaxis: -PPI, No heparin/ subcutaneous enoxaparin in setting of thrombocytopenia - Ct SCDs instead Disposition: -Transfer to med/surg floor with remote telemetry and continuous pulse ox monitoring. By pulmonology recommendations, we will monitor the patient or the next couple of days to ensure that he is doing well with his current diuretic regimenas noted, he may need additional the metolazone as well if torsemide alone is not adequate. Once the diuretic regimen has been adequately titrated, plan will be for patient to be discharged home thereafter. Plan/VTE VTE Prophylaxis Ordered?: Yes VS, I&O, 24H, Fishbone Vital Signs/I&O Vital Signs Date Time Temp Pulse Resp B/P (MAP) Pulse Ox O2 Delivery O2 Flow Rate FiO2 10/04/18 11:24 98.1 66 20 102/73 (83) 93 10/03/18 08:05 21 10/03/18 07:00 2.0 10/02/18 11:47 Ventilator I&O- Last 24 Hours up to 6 AM 10/04/18 06:00 Intake Total 1480 ml Output Total 1000 ml Balance 480 ml Laboratory Data 24H LABS Laboratory Tests 2 10/04/18 03:06: Immature Granulocyte % (Auto) 0.4, White Blood Count 4.6, Red Blood Count 4.34, Hemoglobin 15.3, Hematocrit 46.9, Mean Corpuscular Volume 108.1H, Mean Corpu scular Hemoglobin 35.3H, Mean Corpuscular Hemoglobin Concent 32.6, Red Cell Distribution Width 14.4, Platelet Count 87L, Neutrophils (%) (Auto) 70.7H, Lymphocytes (%) (Auto) 13.2L, Monocytes (%) (Auto) 13.8H, Eosinophils (%) (Auto) 1.3, Basophils (%) (Auto) 0.6, Neutrophils # (Auto) 3.3, Lymphocytes # (Auto) 0.6L, Monocytes # (Auto) 0.6, Eosinophils # (Auto) 0.1, Basophils # (Auto) 0.0, Nucleated Red Blood Cells % (auto) 0.0, Anion Gap 5L, Glomerular Filtration Rate > 60.0, Blood Urea Nitrogen 42H, Creatinine 0.59L, Sodium Level 138, Potassium Level 4.1#, Chloride Level 100, Carbon Dioxide Level 33H, Calcium Level 7.5L, Phosphorus Level 1.2#L, Magnesium Level 2.5H 10/04/18 05:40: Blood Gas Bicarbonate Standard 29.2H, Arterial Blood pH 7.466H, Arterial Blood Partial Pressure CO2 42.1, Arterial Blood Partial Pressure O2 76.1, Arterial Blood Total CO2 31.0, Arterial Blood HCO3 29.7H, Arterial Blood Base Excess 5.4H, Arterial Blood Oxygen Saturation 95.9 10/04/18 09:29: CBC/BMP Laboratory Tests 10/04/18 03:06 Red Blood Count 4.34, Mean Corpuscular Volume 108.1 H, Mean Corpuscular Hemoglobin 35.3 H, Mean Corpuscular Hemoglobin Concent 32.6, Red Cell Distribution Width 14.4, Neutrophils (%) (Auto) 70.7 H, Lymphocytes (%) (Auto) 13.2 L, Monocytes (%) (Auto) 13.8 H, Eosinophils (%) (Auto) 1.3, Basophils (%) (Auto) 0.6, Neutrophils # (Auto) 3.3, Lymphocytes # (Auto) 0.6 L, Monocytes # (Auto) 0.6, Eosinophils # (Auto) 0.1, Basophils # (Auto) 0.0, Calcium Level 7.5 L Microbiology Microbiology 10/02/18 Blood Culture - Preliminary, Resulted No Growth after 48 hours. All Specime... 10/02/18 Blood Culture - Preliminary, Resulted No Growth after 48 hours. All Specime... 10/02/18 Respiratory Virus Panel (PCR) ([facility]) - Final, Complete CAROL WALLIS MD Oct 04, 2018 13:41
[2018-10-04] MEDS ORDERED: TORSEMIDE 20 MG TAB PO SCH (17:00)
[2018-10-04] MEDS: PRAVASTATIN 10 MG TAB PO SCH (20:47)
[2018-10-05] MEDS: LevoFLOXacin 500 MG TABLET PO SCH (05:26)
[2018-10-05 06:00] VITALS: BP 102/54
[2018-10-05 06:11] LABS: BASO % 0.8 % (0.0-1.0); EOS # 0.2 10^3/uL (0.0-0.50); EOS % 5.3 % (0.0-3.0); HEMOGLOBIN 15.2 g/dl (13.5-17.5); LYMPH # 0.5 10^3/uL (1.5-4.5); LYMPH % 12.1 % (24.0-44.0); MEAN CORPUSCULAR HEMOGLOBIN 34.1 pg (27.0-33.0); MEAN CORPUSCULAR HGB CONC 31.7 g/dl (32.0-36.5); MEAN CORPUSCULAR VOLUME 107.6 fl (80.0-96.0); MONO # 0.5 10^3/uL (0.0-0.8); MONO % 13.3 % (0.0-5.0); NEUTROPHILS # 2.7 10^3/uL (1.8-7.7); NEUTROPHILS % 68.2 % (36.0-66.0); RED BLOOD COUNT 4.46 10^6/uL (4.30-6.10)
[2018-10-05 06:26] LABS: PLATELET COUNT, AUTOMATED 85 10^3/uL (150-450)
[2018-10-05 06:31] LABS: BLOOD UREA NITROGEN 32 MG/DL (7-18); CALCIUM LEVEL 7.8 MG/DL (8.8-10.2); CARBON DIOXIDE LEVEL 40 MEQ/L (21-32); CHLORIDE LEVEL 99 MEQ/L (98-107); GLOMERULAR FILTRATION RATE > 60.0 (>42); GLUCOSE, FASTING 76 MG/DL (70-100); MAGNESIUM LEVEL 2.1 MG/DL (1.8-2.4); POTASSIUM SERUM 3.7 MEQ/L (3.5-5.1); SODIUM LEVEL 141 MEQ/L (136-145)
[2018-10-05] MEDS: COMBIVENT RESPIMAT 100-20MCG INHALER 4GM INH SCH ×4 (07:38→20:09)
[2018-10-05] MEDS: MULTIVITAMINS/MINERALS THERAP 1 TAB PO SCH (09:04)
[2018-10-05] MEDS: NEUTRA-PHOS 1.5 GM PACKET PO SCH ×2 (09:04→21:11)
[2018-10-05] MEDS: MAGNESIUM OXIDE 400 MG TAB (MAG-OX) PO SCH (09:04)
[2018-10-05] MEDS: CETIRIZINE (ZyrTEC) 10 MG TAB PO SCH (09:04)
[2018-10-05] MEDS: CALCIUM/VITAMIN D 500 MG TAB PO SCH (09:04)
[2018-10-05] MEDS: ASPIRIN 81 MG ENTERIC TAB PO SCH (09:04)
[2018-10-05] MEDS: VITAMIN D 1,000 INTERNATIONAL UNITS TABLET PO SCH (09:04)
[2018-10-05] MEDS: PANTOPRAZOLE 40MG TAB (PROTONIX) PO SCH (09:04)
[2018-10-05] MEDS ORDERED: metOLazone 2.5 MG TAB PO ONE (09:15)
--- NOTE | 2018-10-05 10:01 | CCN ---
DATE: 10/05/2018 CRITICAL CARE PROGRESS NOTE The patient was seen and examined this morning during bedside rounds. The patient continues to have an occasional cough which is difficult to expectorate mucus. He denies any significant increased shortness of breath. He has no fevers or chills. No chest pains. No abdominal pain. No nausea or vomiting. PHYSICAL EXAMINATION: Temperature 97.9, pulse 65, respirations 20, blood pressure 102/54, oxygen saturation (O2 sat) 94% on room air. Ins 940, outs 850. General: The patient is a frail male with severe kyphoscoliosis who is sitting in bed in no acute respiratory distress. He is able to speak in complete sentences and not using accessory muscles of respiration. HEENT: Normocephalic, atraumatic. Moist mucous membranes and pupils reactive to light bilaterally. Neck is supple. No palpable adenopathy. Cardiovascular: Regular rate and rhythm. Normal S1, S2. Unable to appreciate any murmurs. Pulmonary: Decreased breath sounds on the right with occasional coarse rhonchi. Some crackles and rhonchi on the left. The patient has obvious kyphoscoliosis and rotation of his chest and well healed incisions in the posterior chest and spine. Abdomen: Soft, nontender, nondistended. Positive bowel signs. Extremities: Increased 2+ pitting edema in his bilateral lower extremities as well as some chronic muscle wasting and malformation changes from his polio. There are hyperpigmentation skin changes in his fingers and toes. LABORATORY DATA: WBC 4.0, hemoglobin 15.2, platelets 85. Chemistry: Sodium 141, potassium 3.7, chloride 99, bicarbonate 40, BUN 32, creatinine 0.80, glucose 76, phosphorus 2.0, magnesium 2.1, procalcitonin was 0.02. ASSESSMENT/PLAN: The patient is a 73-year-old male with a history of congestive heart failure (CHF), coronary artery disease (CAD), prostate cancer - status post radiation, history of permanent pacemaker and automatic implantable cardioverter defibrillator (AICD), history of restrictive lung disease secondary to his severe kyphoscoliosis from polio with chronic hypercarbic respiratory failure who presented with increased weakness and nausea. The patient was found to have acute on chronic hypercarbic respiratory failure with a component also of contraction alkalosis, likely secondary to dehydration from his diuresis and decreased oral intake. Patient also with acute kidney injury (BYRON), likely due to hypovolemia. He was given IV fluids with improvement in his renal function and in his acidosis. The patient was also placed on bilevel positive airway pressure (BiPAP) with improvement in his hypercarbia. The patient did have some increasing cough and rhonchorous breath sounds. His chest x-ray showed a possible new infiltrate in his right base, and he was started on antibiotics for possible aspiration pneumonia. - His procalcitonin has come back negative. Therefore, would discontinue Levaquin and continue with Acapella and Combivent for pulmonary toilet and mucus clearance. - The patient's last chest x-ray showed some increased pleural effusion on the left side, and he has increasing lower extremity edema. He was restarted on his torsemide yesterday but has not been significantly net negative, and he still has significant lower extremity edema. Will give him a dose of metolazone today prior to his torsemide for more aggressive diuresis. Would likely be able to switch back to his usual 20 mg of torsemide daily after that. - Discussed with the patient and his about monitoring his weights and his edema. He will be following up with Dr. Adams from cardiology for continued management of his diuretics as an outpatient. He also had some demand ischemia on admission, and he will be following up with Dr. Adams as well for that. - Continue with his BiPAP at night. The patient has been using his home BiPAP. - Would replete his electrolytes as needed. Deep vein thrombosis (DVT) prophylaxis. Code Status: DO NOT RESUSCITATE (DNR) with a trial of intubation. Total critical care time spent not including any procedure: Approximately 40 minutes. BOBD
[2018-10-05] MEDS: TORSEMIDE 20 MG TAB PO SCH (10:33)
[2018-10-05 14:00] VITALS: BP 99/55
--- NOTE | 2018-10-05 16:38 | IPNPDOC ---
Subjective Date Seen The patient was seen on 10/05/18. Subjective Chief Complaint/HPI The patient is a 73-year-old male admitted with a reason for Acute Kidney Injury, Acute On Chronic Respiratory Failure. The patient has a previous history of combined systolic and diastolic congestive heart failure as well as restrictive lung disease secondary to 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. He presented to the ER for concerns regarding weakness, nausea and concerns regarding possible dehydration. The patient reported some shortness of breath as well. Workup in the ER was consistent with acute kidney injury as well as acute on chronic hypercapnic respiratory failure. Patient was initiated on BiPAP therapy, started on fluids and admitted to the ICU. Events since last encounter Patient reports his cough and congestion as well as shortness of breath seems a little improved from yesterday. Still has significant lower extremity swelling. He has been voiding quite a bit after he received torsemide last night. Denies any problems of chest pain. No nausea or vomitingtolerating oral intake. Denies abdominal pain. Denies feeling constipated. Objective Physical Examination General Exam: Positive: Alert, Other (sitting up at edge of bed. No distress.) Eye Exam: Positive: PERRLA ENT Exam: Positive: Mucous membr. moist/pink Chest Exam: Positive: Other (diminished air entry at right lung base. Left lung sounds mostly clear. No overt wheezing, no distress.) Heart Exam: Positive: Rate Normal, Regular Rhythm, Normal S1, Normal S2 Abdomen Exam: Positive: Soft; Negative: Tenderness Extremity Exam: Positive: Other (bilateral lower extremity 2+ edema below knees - seems about the same as yesterday.) Neuro Exam: Positive: Other (awake, alert, oriented 3. Moving all 4 extremities to command. Chronic bilateral lower extremity foot drop) Assessment /Plan Assessment Acute on chronic hypercapnic hypoxic respiratory failure: -Appreciate input by pulmonology - case was discussed with Dr Mcintosh this morning -Continue BiPAP at bedtime and when sleeping -Patient did not tolerate albuterol/Mucomyst nebs was changed to Combivent previously by pulm -Continue flutter valve -Continue torsemidechanged to daily morning dosing instead of evening. In addition, patient will receive a dose of 2.5 mg metolazone prior to the torsemide this morning per discussion with Dr Mcintosh - plan will be to thereafter use metolazone on an as-needed basis based on his volume status ra ther than scheduledpatient was on scheduled metolazone 2.5 g every other day at home which lactic contributed to his presenting acute kidney injury/dehydration. Acute kidney injury likely secondary to dehydration from diuretics and poor oral intake: -Resolved -Patient received total 3 L fluids - off IV fluids now -Resumed torsemide as noted above and monitor renal function. Additional metolazone this morning. Elevated troponin: -Chronic - as far back as 2014, patient hasn't elevated troponins in the 0.14- 0.3 range at baseline -Denies any active chest pain -Continue aspirin and statin. Holding carvedilol in setting of low blood pressures Hypotension: -Asymptomatic. Monitor. -Holding carvedilol Right lower lobe aspiration pneumonia present on admission: -Patient was treated with levofloxacindiscontinued today per discussion with pulmonology as pro-calcitonin was 0.02 -Sputum cultures pendingfollow-up on same -Continue Combivent, prn supplemental oxygen, flutter valve Chronic combined systolic and diastolic congestive heart failure: -Hold Coreg secondary to low blood pressure. Continue torsemide. Hypokalemia: -Resolved Gait difficulty secondary to bilateral foot drop and severe kyphoscoliosis from polio: -PT/OT evaluation and requested. Patient's does help with transfers and patient uses wheelchair to get around at home. Chronic thrombocytopenia: -Initial drop may have been dilutional related to IV hydration -No bleeding -Off enoxaparin -Monitor -No indication for transfusion Bilateral lower extremity edema: -No DVT on venous ultrasound -Patient has a slight bruising in the right calfthis is likely related to an injury reported by the patient during his previous hospital stay GI and DVT prophylaxis: -PPI, No heparin/ subcutaneous enoxaparin in setting of thrombocytopenia - Ct SCDs instead Disposition: Anticipate possible discharge over the next 24-48 hours once patient has diuresed. Patient is a high risk for readmission in setting of his, compromised pulmonary status secondary to 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 as well as congestive heart failure. His diuretic regimen will need to be adjusted on his clinical status/volume status as noted above. Anticipate discharge home once patient is diuresing better Plan/VTE VTE Prophylaxis Ordered?: Yes VTE Exclusion Pharmacological: Thrombocytopenia VS, I&O, 24H, Fishbone Vital Signs/I&O Vital Signs Date Time Temp Pulse Resp B/P (MAP) Pulse Ox O2 Delivery O2 Flow Rate FiO2 10/05/18 14:00 96.9 76 19 99/55 (70) 95 10/04/18 14:10 2.0 10/03/18 08:05 21 10/02/18 11:47 Ventilator I&O- Last 24 Hours up to 6 AM 10/05/18 06:00 Intake Total 840 ml Output Total 1045 ml Balance -205 ml Laboratory Data 24H LABS Laboratory Tests 2 10/05/18 05:35: Immature Granulocyte % (Auto) 0.3, White Blood Count 4.0, Red Blood Count 4.46, Hemoglobin 15.2, Hematocrit 48.0, Mean Corpuscular Volume 107.6H, Mean Corpuscular Hemoglobin 34.1H, Mean Corpuscular Hemoglobin Concent 31.7L, Red Cell Distribution Width 14.6H, Platelet Count 85L, Neutrophils (%) (Auto) 68.2H, Lymphocytes (%) (Auto) 12.1L, Monocytes (%) (Auto) 13.3H, Eosinophils (%) (Auto) 5.3H, Basophils (%) (Auto) 0.8, Neutrophils # (Auto) 2.7, Lymphocytes # (Auto) 0.5L, Monocytes # (Auto) 0.5, Eosinophils # (Auto) 0.2, Basophils # (Auto) 0.0, Nucleated Red Blood Cells % (auto) 0.0, Immature Platelet Fraction 14.1H, Anion Gap 2L, Glomerular Filtration Rate > 60.0, Blood Urea Nitrogen 32H, Creatinine 0.80, Sodium Level 141, Potassium Level 3.7, Chloride Level 99, Carbon Dioxide Level 40H, Calcium Level 7.8L, Phosphorus Level 2.0#L, Magnesium Level 2.1 CBC/BMP Laboratory Tests 10/05/18 05:35 Red Blood Count 4.46, Mean Corpuscular Volume 107.6 H, Mean Corpuscular Hemoglobin 34.1 H, Mean Corpuscular Hemoglobin Concent 31.7 L, Red Cell Distribution Width 14.6 H, Neutrophils (%) (Auto) 68.2 H, Lymphocytes (%) (Auto) 12.1 L, Monocytes (%) (Auto) 13.3 H, Eosinophils (%) (Auto) 5.3 H, Basophils (%) (Auto) 0.8, Neutrophils # (Auto) 2.7, Lymphocytes # (Auto) 0.5 L, Monocytes # (Auto) 0.5, Eosinophils # (Auto) 0.2, Basophils # (Auto) 0.0, Calcium Level 7.8 L Microbiology Microbiology 10/02/18 Blood Culture - Preliminary, Resulted No Growth after 72 hours. All specime... 10/02/18 Blood Culture - Preliminary, Resulted No Growth after 72 hours. All specime... 10/04/18 Gram Stain - Final, Resulted 10/04/18 Sputum Culture, Resulted Pending 10/02/18 Respiratory Virus Panel (PCR) ([facility]) - Final, Complete CAROL WALLIS MD Oct 05, 2018 16:38
[2018-10-05] MEDS: PRAVASTATIN 10 MG TAB PO SCH (21:11)
[2018-10-05 22:00] VITALS: BP 94/64
[2018-10-06 06:00] VITALS: BP 91/56
[2018-10-06 06:29] LABS: BASO % 1.2 % (0.0-1.0); EOS # 0.2 10^3/uL (0.0-0.50); EOS % 5.6 % (0.0-3.0); HEMATOCRIT 49.5 % (42.0-52.0); HEMOGLOBIN 15.8 g/dl (13.5-17.5); LYMPH # 0.6 10^3/uL (1.5-4.5); LYMPH % 18.7 % (24.0-44.0); MEAN CORPUSCULAR HEMOGLOBIN 34.3 pg (27.0-33.0); MEAN CORPUSCULAR HGB CONC 31.9 g/dl (32.0-36.5); MEAN CORPUSCULAR VOLUME 107.4 fl (80.0-96.0); MONO # 0.4 10^3/uL (0.0-0.8); MONO % 12.8 % (0.0-5.0); NEUTROPHILS # 2.1 10^3/uL (1.8-7.7); NEUTROPHILS % 61.4 % (36.0-66.0); RED BLOOD COUNT 4.61 10^6/uL (4.30-6.10); WHITE BLOOD COUNT 3.4 10^3/uL (4.0-10.0)
[2018-10-06 06:31] LABS: PLATELET COUNT, AUTOMATED 82 10^3/uL (150-450)
[2018-10-06 06:48] LABS: BLOOD UREA NITROGEN 32 MG/DL (7-18); CALCIUM LEVEL 7.5 MG/DL (8.8-10.2); CARBON DIOXIDE LEVEL 43 MEQ/L (21-32); CHLORIDE LEVEL 98 MEQ/L (98-107); CREATININE FOR GFR 0.94 MG/DL (0.70-1.30); GLOMERULAR FILTRATION RATE > 60.0 (>42); GLUCOSE, FASTING 86 MG/DL (70-100); MAGNESIUM LEVEL 1.9 MG/DL (1.8-2.4); PHOSPHORUS LEVEL 2.8 MG/DL (2.5-4.9); POTASSIUM SERUM 3.7 MEQ/L (3.5-5.1); SODIUM LEVEL 142 MEQ/L (136-145)
[2018-10-06] MEDS: TORSEMIDE 20 MG TAB PO SCH (08:10)
[2018-10-06] MEDS: MULTIVITAMINS/MINERALS THERAP 1 TAB PO SCH (08:11)
[2018-10-06] MEDS: MAGNESIUM OXIDE 400 MG TAB (MAG-OX) PO SCH (08:11)
[2018-10-06] MEDS: ASPIRIN 81 MG ENTERIC TAB PO SCH (08:11)
[2018-10-06] MEDS: PANTOPRAZOLE 40MG TAB (PROTONIX) PO SCH (08:11)
[2018-10-06] MEDS: CALCIUM/VITAMIN D 500 MG TAB PO SCH (08:12)
[2018-10-06] MEDS: CETIRIZINE (ZyrTEC) 10 MG TAB PO SCH (08:12)
[2018-10-06] MEDS: VITAMIN D 1,000 INTERNATIONAL UNITS TABLET PO SCH (08:12)
[2018-10-06] MEDS ORDERED: LEVALBUTEROL HFA 45MCG/ACT 15 GM INHALER INH SCH (09:00)
--- NOTE | 2018-10-06 10:17 | CCN ---
DATE: 10/06/2018 The patient was seen and examined this morning during bedside rounds. The patient said he was able to cough up more mucus yesterday and he feels that his breathing and cough has improved. He has no fevers or chills and no chest pains. No abdominal pain. No nausea, vomiting. He has some slight improvement in his lower extremity edema. PHYSICAL EXAMINATION: Temperature 97.0, pulse 63, respiration 17, blood pressure 91/56, O2 sat 96% on room air. Input 1.3 liters, output 2.2 liters. GENERAL: The patient is a frail male with severe kyphoscoliosis. He is sitting in bed in no acute respiratory distress. He is not using any accessory muscles for respiration. HEENT: Normocephalic, atraumatic. Moist mucous membranes and pupils reactive to light bilaterally. Neck is supple and no palpable adenopathy. CARDIOVASCULAR: Regular rate and rhythm. Normal S1, S2. Unable to appreciate any murmurs. PULMONARY: There is some improved breath sounds with less rhonchi and crackles. He has decreased breath sounds on the right and some decreased breath sounds on the left base as well. ABDOMEN: Abdomen is soft, nontender, nondistended. EXTREMITIES: He has +1-2 pitting edema in his bilateral lower extremities as well as some chronic muscle wasting and hyperpigmentation skin changes in his fingers and toes. LABS: WBC 3.4, hemoglobin 15.8, platelets 82. Chemistry: Sodium 142, potassium 3.7, chloride 98, bicarb 43, BUN 32, creatinine 0.94, glucose 86. Microbiology: Sputum culture showed normal colin. ASSESSMENT/PLAN: The patient is a 73-year male with a history of congestive heart failure (CHF), coronary artery disease (CAD), prostate cancer status post radiation, history of permanent pacemaker and automatic implantable cardioverter defibrillator (AICD), history of restrictive lung disease secondary to his severe kyphoscoliosis from polio with chronic hypercarbic respiratory failure who presented with increased weakness and nausea. The patient was thought to be dehydrated with acute kidney injury likely due to hypovolemia. He also had acute on chronic hypercarbic respiratory failure with some component of contraction alkalosis due to his dehydration. He was given IV fluids with improvement in his renal function and his acidosis. He was also placed on BiPAP with improvement in his hypercarbia. The patient had complained of some increasing cough with rhonchorous breath sounds and his chest x-ray had showed possible infiltrate in his right base. The patient was started on antibiotics for possible aspiration pneumonia. His procalcitonin came back negative. His sputum cultures showed normal colin. His antibiotics were discontinued. - Continue the patient on acapella and Combivent for pulmonary toilet and mucus clearance. - The patient was given metolazone and torsemide yesterday for improved diuresis. He still has some significant pitting edema today. Therefore, would give him an additional dose of 20 mg by mouth torsemide and then restart with his normal 20 mg of torsemide daily. - The patient and his will be monitoring his edema and his weights closely after discharge. We discussed about using metolazone as needed with his torsemide as needed if he has increased edema. He will also be watching his fluid intake and will limit himself to 1500 mL of fluid a day. - The patient will be following up with Dr. Adams from cardiology for management of his diuretics as well as given his demand ischemia on this admission. - Continue with his BiPAP at night. The patient will be following up with pulmonary with Dr. Olguin. Deep venous thrombosis (DVT) prophylaxis. Code status DO NOT RESUSCITATE with a trial of intubation. Total critical care spent not including procedures, approximately 35 minutes. Please do not hesitate to call if any further questions or concerns.
[2018-10-06] MEDS ORDERED: ASPI81TAEC PO (10:43)
[2018-10-06] MEDS ORDERED: METO25TA PO (10:43)
[2018-10-06] MEDS ORDERED: TORSEMIDE 20 MG TAB PO ONE (11:00)
[2018-10-06] MEDS ORDERED: COMBAER6 INH (14:01)
--- NOTE | 2018-10-06 14:03 | DS.PDOC ---
Discharge Summary General Date of Admission October 02, 2018 at 10:18 Date of Discharge 10/06/2018 Discharge Summary PROCEDURES PERFORMED DURING STAY: [None]. ADMITTING DIAGNOSES / DISCHARGE DIAGNOSES: Acute on chronic hypercapnic hypoxic respiratory failure: Acute kidney injury likely secondary to dehydration from diuretics and poor oral intake: Elevated troponin: Hypotension: Right lower lobe aspiration pneumonia present on admission: Chronic combined systolic and diastolic congestive heart failure: Hypokalemia: Gait difficulty secondary to bilateral foot drop and severe kyphoscoliosis from polio: Chronic thrombocytopenia: Bilateral lower extremity edema: GI and DVT prophylaxis: COMPLICATIONS/CHIEF COMPLAINT: Shortness of breath HISTORY OF PRESENT ILLNESS: Patient is 73-year-old male with a past history of combined systolic and diastolic CHF, restrictive lung disease 2/2 severe kyphoscoliosis 2/2 polio, who presented to the emergency room with complaints of weakness, nausea and po ssible dehydration. Patient reports that he had some shortness of breath but denied chest pain. Patient was suspected of having fluid overload and was admitted to the intensive care unit for further evaluation and treatment under the hospitalist service. HOSPITAL COURSE: Acute on chronic hypercapnic hypoxic respiratory failure: - s/p BIPAP - Has had significant clinical improvement - c.w inhaled therapy as ordered - Pulmonary on consult; appreciate their input; case was discussed this morning - c/w Torsemide and Metolazone PRN; additional dose of Torsemide provided today s/p Acute kidney injury likely secondary to dehydration from diuretics and poor oral intake: - s/p 3 liters on normal saline Elevated troponin: - Chronic - as far back as 2014, patient hasn't elevated troponins in the 0.14- 0.3 range at baseline - Denies any active chest pain - c/w ASA and statin; c/w Carvedilol as an outpatient based on hold parameters Hypotension: - Remains asymptomatic - Advised to consider restarting Carvedilol if hypertensive Right lower lobe aspiration pneumonia present on admission: - Patient was treated with levofloxacindiscontinued today per discussion with pulmonology as pro-calcitonin was 0.02 - Sputum cultures negative - c/w Inhaled therapy as ordered; supplemental oxygen, flutter valve Chronic combined systolic and diastolic congestive heart failure: - c/w Torsemide - Will re-introduce BB in outpatient setting if BP supports it s/p Hypokalemia: Gait difficulty secondary to bilateral foot drop and severe kyphoscoliosis from polio: - PT/OT evaluation and requested. Patient's does help with transfers and patient uses wheelchair to get around at home. Chronic thrombocytopenia: -Initial drop may have been dilutional related to IV hydration -No bleeding -Off enoxaparin -Monitor -No indication for transfusion Bilateral lower extremity edema: -No DVT on venous ultrasound -Patient has a slight bruising in the right calfthis is likely related to an injury reported by the patient during his previous hospital stay GI and DVT prophylaxis: -PPI, No heparin/ subcutaneous enoxaparin in setting of thrombocytopenia - c/w SCDs instead DISCHARGE MEDICATIONS: Please see below. ALLERGIES: Please see below. PHYSICAL EXAMINATION ON DISCHARGE: Vitals (See below) General: Lying in bed, no acute distress, comfortable, severe kyphoscoliosis, AAOx3 HEENT: NC, AT CVS: RRR, +S1S2 Lungs: Fair air entry b/l, -w/r/r Abdomen: Soft, ND, NT Extremities: 2+ pitting edema still noted - however improved , - Calf tenderness LABORATORY DATA: Please see below. ACTIVITY: [As tolerated]. DISCHARGE PLAN: Follow up with Dr. Lucila Shi within 7 days Remain compliant with treatmetn plan and medications Return to the ER if you experience any problems DISPOSITION: Home, Self-Care. DISCHARGE CONDITION: [Stable]. TIME SPENT ON DISCHARGE: 35 minutes Vital Signs/I&Os Vital Signs Date Time Temp Pulse Resp B/P (MAP) Pulse Ox O2 Delivery O2 Flow Rate FiO2 10/06/18 06:00 97.0 63 17 91/56 (68) 96 10/04/18 14:10 2.0 10/03/18 08:05 21 10/02/18 11:47 Ventilator I&O- Last 24 Hours up to 6 AM 10/06/18 06:00 Intake Total 1680 ml Output Total 2200 ml Balance -520 ml Laboratory Data Labs 24H Laboratory Tests 2 10/06/18 06:09: Immature Granulocyte % (Auto) 0.3, White Blood Count 3.4L, Red Blood Count 4.61, Hemoglobin 15.8, Hematocrit 49.5, Mean Corpuscular Volume 107.4H, Mean Corpuscular Hemoglobin 34.3H, Mean Corpuscular Hemoglobin Concent 31.9L, Red Cell Distribution Width 14.6H, Platelet Count 82L, Neutrophils (%) (Auto) 61.4, Lymphocytes (%) (Auto) 18.7L, Monocytes (%) (Auto) 12.8H, Eosinophils (%) (Auto) 5.6H, Basophils (%) (Auto) 1.2H, Neutrophils # (Auto) 2.1, Lymphocytes # (Auto) 0.6L, Monocytes # (Auto) 0.4, Eosinophils # (Auto) 0.2, Basophils # (Auto) 0.0, Nucleated Red Blood Cells % (auto) 0.0, Immature Platelet Fraction 14.7H, Anion Gap 1L, Glomerular Filtration Rate > 60.0, Blood Urea Nitrogen 32H, Creatinine 0.94, Sodium Level 142, Potassium Level 3.7, Chloride Level 98, Carbon Dioxide Level 43H, Calcium Level 7.5L, Phosphorus Level 2.8#, Magnesium Level 1.9 CBC/BMP Laboratory Tests 10/06/18 06:09 Red Blood Count 4.61, Mean Corpuscular Volume 107.4 H, Mean Corpuscular Hemoglobin 34.3 H, Mean Corpuscular Hemoglobin Concent 31.9 L, Red Cell Distr ibution Width 14.6 H, Neutrophils (%) (Auto) 61.4, Lymphocytes (%) (Auto) 18.7 L, Monocytes (%) (Auto) 12.8 H, Eosinophils (%) (Auto) 5.6 H, Basophils (%) (Auto) 1.2 H, Neutrophils # (Auto) 2.1, Lymphocytes # (Auto) 0.6 L, Monocytes # (Auto) 0.4, Eosinophils # (Auto) 0.2, Basophils # (Auto) 0.0, Calcium Level 7.5 L Microbiology Microbiology 10/02/18 Blood Culture - Preliminary, Resulted No Growth after 72 hours. All specime... 10/02/18 Blood Culture - Preliminary, Resulted No Growth after 72 hours. All specime... 10/04/18 Gram Stain - Final, Complete 10/04/18 Sputum Culture - Final, Complete 10/02/18 Respiratory Virus Panel (PCR) (HENRRY) - Final, Complete Discharge Medications Scheduled Aspirin (Aspirin EC) 81 Mg Tablet.dr, 81 MG PO DAILY Calcium Carb/Vitamin D3/Vit K1 (Viactiv Soft Chew) 1 Chw Chw, 1 CHW PO DAILY, (Reported) Carvedilol (Carvedilol) 3.125 Mg Tablet, 0.5 TAB PO BID, (Reported) take if SBP > 95 Cetirizine HCl (Cetirizine HCl) 10 Mg Tablet, 10 MG PO DAILY, (Reported) Cholecalciferol (Vitamin D3) (Vitamin D3) 1,000 Unit Tablet, 2,000 UNIT PO DAILY, (Reported) Denosumab Injection (Prolia) 60 Mg/1 Ml Syringe, 60 MG SC ASDIRECTED, (Reported) EVERY SIX MONTHS, LAST DOSE WAS IN APRIL 2018 Lactose-Reduced Food (Ensure Active High Protein) 1 Liq Liq, 1 LIQ PO DAILY, (Reported) Magnesium Oxide (Magnesium Oxide) 400 Mg Tablet, 400 MG PO DAILY, (Reported) Multivitamins (Thera M Plus Tablet) 1 Tab Tab, 1 TAB PO DAILY, (Reported) Pravastatin Sodium (Pravastatin Sodium) 10 Mg Tab, 10 MG PO QHS, (Reported) Torsemide (Torsemide) 20 Mg Tablet, 20 MG PO QPM, (Reported) Scheduled PRN Albuterol Sulf (Albuterol Sulfate) 2.5 Mg/3 Ml Vial.neb, 2.5 MG INH Q4H PRN for SHORTNESS OF BREATH, (Reported) DOES NOT TAKE BECAUSE IT MAKES HIM FEEL ANXIOUS Metolazone (Metolazone) 2.5 Mg Tablet, 2.5 MG PO DAILYPRN PRN for edema Please take dose of torsemide depending on edema Allergies Coded Allergies: Penicillins (Verified Allergy, Intermediate, hives, 10/02/18) latex (Verified Allergy, Intermediate, rash , 10/02/18) BILL BEARD MD Oct 06, 2018 14:03
== END 2018-10-06 12:36 | disposition home or self-care (01) | DRG 189 ==
LOC: M ED 06:03 → M ED INP 10:18 → M ICU 12:11 → M MSPAV 10-04 15:27
PROVIDERS: ADMIT Internal Medicine; ATTEND Internal Medicine
DX: J96.22 Acute and chronic respiratory failure with hypercapnia (principal); J69.0 Pneumonitis due to inhalation of food and vomit; E87.2 Acidosis; E87.3 Alkalosis; I50.42 Chronic combined systolic (congestive) and diastolic (congestive) heart failure; N17.9 Acute kidney failure, unspecified; J96.21 Acute and chronic respiratory failure with hypoxia; E86.0 Dehydration; D69.6 Thrombocytopenia, unspecified; R26.89 Other abnormalities of gait and mobility; I95.9 Hypotension, unspecified; E87.6 Hypokalemia; M41.9 Scoliosis, unspecified; M21.371 Foot drop, right foot; M21.372 Foot drop, left foot; Z88.0 Allergy status to penicillin; Z91.040 Latex allergy status; G14 Postpolio syndrome; I25.2 Old myocardial infarction; I25.5 Ischemic cardiomyopathy; Z87.891 Personal history of nicotine dependence; Z85.46 Personal history of malignant neoplasm of prostate; M81.0 Age-related osteoporosis without current pathological fracture; Z66 Do not resuscitate; Z95.0 Presence of cardiac pacemaker

== ENCOUNTER → 2018-10-15 | Outpatient (CLI) | payer MEDICARE, OTHER ==
[~2018-10-15] MED LIST changes: +ALBU83IN INH; +ASPI81TAEC PO; +COMBAER6 INH; +MAGN400T PO; +METO25TA PO
== END ==
LOC: M SMT 09:44
PROVIDERS: ATTEND Nurse Practitioner Family
DX: M81.0 Age-related osteoporosis without current pathological fracture (principal)

== ENCOUNTER → 2018-12-22 | Outpatient (CLI) | payer MEDICARE, OTHER ==
[~2018-12-22] MED LIST changes: -VIAC8.5C PO; +VIACTIV 500-5001 CHW PO
== END ==
LOC: M SMT 13:43
PROVIDERS: ATTEND Radiology Radiation Oncology
DX: C61 Malignant neoplasm of prostate (principal)

== ENCOUNTER → 2018-12-31 | Outpatient (CLI) | payer MEDICARE, OTHER ==
[~2018-12-31] MED LIST changes: -ALL10TAB28 PO; +ALL10TAB29 PO; -ASPI-222 PO; +ASPI-527 PO
--- NOTE | 2019-01-02 06:40 | RADONC ---
RADIATION ONCOLOGY FOLLOWUP NOTE DATE: 12/31/2018 CHART #: [id number] DIAGNOSIS: Prostate cancer. STAGE: II A, [id number]. ECOG PERFORMANCE STATUS: 1. FOLLOWUP NOTE Mr. Flores is a very pleasant 73-year-old white male with the diagnosis of a stage II A, [id number], moderate to poorly differentiated Claudia score 7 (3-4) adenocarcinoma of prostate who is presenting to us today for routine followup visit 4 years post completion of external beam radiation therapy. The patient presents today reporting that he is doing quite well with no complaints at this time related to his radiation therapy or disease. He has no urinary or bowel difficulties and no bone pain. REVIEW OF SYSTEMS: The patient's review of systems is positive for physical limitations secondary to his polio. It is otherwise noncontributory. Denies nausea, vomiting, fevers, chills, night sweats, diplopia, headaches, anxiety or depression, anorexia, weight loss, visual disturbances, chest pain, urinary or bowel difficulties, bone pain, or neurological problems. PHYSICAL EXAMINATION: The patient is a well-developed, well-nourished male in no acute distress. HEENT exam is normocephalic, atraumatic. Extraocular movements are intact. There is no palpable cervical, supraclavicular, infraclavicular, axillary, or inguinal lymphadenopathy present. Lungs are clear to auscultation and percussion. Heart has a regular rate and rhythm. Abdomen is benign with no hepatosplenomegaly, masses, or tenderness. Rectal examination reveals a normal anal sphincter tone. His prostate is smooth with no evidence of nodularity. Skeletal examination reveals no tenderness to pressure or percussion of the bony skeleton. Extremities reveal no clubbing, cyanosis, or edema. Neurologic exam is grossly intact, as is the remainder of the physical examination. ASSESSMENT: The patient is clinically HARSHA at this time and will be seen by us again in 6 months for further followup. He will also continue to be followed by his other physicians as well. cc: MD Manuel Hernandez MD Edmund Roache, MD
== END ==
LOC: M ONCR 14:55
PROVIDERS: ATTEND Radiology Radiation Oncology
DX: C61 Malignant neoplasm of prostate (principal)

== ENCOUNTER 2019-01-28 12:36 | Outpatient (RCR) | payer MEDICARE, OTHER ==
--- NOTE | 2019-01-28 14:21 | CARECAPL ---
Assessment Account #s: Initial Assessment General Diagnoses: CHF Date of event: October 02, 2018 Physician: NENITA KISER MD Allergies: Coded Allergies: Penicillins (Verified Allergy, Intermediate, hives, 10/02/18) latex (Verified Allergy, Intermediate, rash , 10/02/18) Date Entered Program: Jan 28, 2019 Risk strat for cardiac event: High Exercise Date: Jan 28, 2019 Assessment: Initial Assessment Stages of change: action Exercise Prescription Plan to provide a monitored exercise program to build strength and endurance. To educate about CHF Modalities initiated: Nustep (will add and do double session), Arm Aerometer (will add), Dumbells (will start with low wts) Frequency: 2 Duration (Minutes) 30 - 60 minutes total exercise a day. 15 - 20 work intervals in minutes. PRN rest intervals in minutes. Functional Capacity Goal Sustained Metabolic Equivalent of a task (MET) goal of 2.5-3.5 for 15-20 aruna neelam. Intensity: 3-Moderate Progression (METS) Increase by: .5 METS every: 2-3 sessions Angina with ex: No Target Heart Rate r+35-40 Resistance Training: Yes Weight (pounds): 1 Reps: 6-8 Hypertension: No Resting 92/52 Meds see below Medications Scheduled Aspirin (Aspirin EC), 81 MG PO DAILY Calcium Carb/Vitamin D3/Vit K1 (Viactiv Soft Chew), 1 CHW PO DAILY, (Reported) Carvedilol (Carvedilol), 0.5 TAB PO BID, (Reported) Cetirizine HCl (Cetirizine HCl), 10 MG PO DAILY, (Reported) Cholecalciferol (Vitamin D3) (Vitamin D3), 2,000 UNIT PO DAILY, (Reported) Denosumab Injection (Prolia), 60 MG SC ASDIRECTED, (Reported) Lactose-Reduced Food (Ensure Active High Protein), 1 LIQ PO DAILY, (Reported) Multivitamins (Thera M Plus Tablet), 1 TAB PO DAILY, (Reported) Pravastatin Sodium (Pravastatin Sodium), 10 MG PO QHS, (Reported) Torsemide (Torsemide), 20 MG PO QPM, (Reported) Scheduled PRN Metolazone (Metolazone), 2.5 MG PO DAILYPRN PRN for edema Discontinued Medications Ipratropium/Albuterol Sulfate (Combivent Respimat 20-100 Mcg), 2 PUFF INH TID Discontinued Reason: Pt states not taking Magnesium Oxide (Magnesium Oxide), 400 MG PO DAILY, (Reported) Discontinued Reason: Pt states not taking Education Goals Met: No (just starting program) Target Goals Individual exercise Rx (1) BP 140/90 or 130/80 if DM or CKD (1) Aerobic active 30+min 5 days per week (1) Nutrition Date: Jan 28, 2019 Assessment: Initial Assessment Lipids Total Cholesterol (188), High Density Lipids (HDL) (99), Low Density Lipids (LDL ) (72.4), Triglycerides (83), Lipid med/supplement Lipid- med/supplement pravastatin Diabetes Diabetes: No Weight Management Weight (lbs): 115.8 Height (inches): 62 Waist Circumference (Inches): 37 BMI: 21.0 Special Diet: low salt Vitamin/Supplements: Multivitamin, Vitamin D Alcohol: none Diet Access Tool: Rate your plate Score: 56 Intervention Diet Class: No (will see meal room hand this program) Referral to Diabetes education: No Referral to lipid clinic: No Referral to weight mangement p: No Education Goals Met: No Target goal LDL-C<100 if triglycerides are >200 Non-HDL-C should be <130 (1) LDL-C<70 for high risk patients (4) HbA1c<7% (1) BMI<25 Waist cir<40in M/<35in F (1) Education Date: Jan 28, 2019 Assessment: Initial Assessment Learning Barriers: ready, learn Knowledge Test Score: 8 Stages of change: action Family Support: Yes (excellent support from ) Tobacco use: No Education Goals Met: No (just starting program) Target Goals Complete cessation of tobacco use (1). Psychosocial Date: Jan 28, 2019 Assessment: Initial Assessment Psych Test (Initial/Discharge) Tool Used: Other Score: 0 Stages of change: action Stress Management Class: Yes Uses Stress Management Skills: Yes Education Goals Met: No (just starting program) Target Goal Assess presence or absence of depression using a valid screening tool (1). Maximize coping skills (2). Positive support system (2). Patient/Program Goal Preventative Medication: Yes Aspirin, Yes Statin/OTR lipid Lowering Fall Risk Assess: Yes Assisstive Device: cane, walker, wheel chair (hx polio and scoliosis) Provider Assessment Provider Assessment: Proceed with rehab Geneva Thompson RN Jan 28, 2019 14:20
== END 2019-02-02 ==
LOC: M CR 12:36
PROVIDERS: ATTEND Internal Medicine
DX: I50.9 Heart failure, unspecified (principal)

== ENCOUNTER 2019-02-09 14:35 | Outpatient (RCR) | payer MEDICARE, OTHER ==
[~2019-02-09 14:35] MED LIST changes: -MAGN400T PO; +MAGN400T3 PO; +SENN-53 PO; -SENN1TAB40 PO
--- NOTE | 2019-02-18 15:21 | CARECAPL ---
Assessment Account #s: Re-Assessment I General Diagnoses: CHF Date of event: October 02, 2018 Physician: NENITA KISER MD Allergies: Coded Allergies: Penicillins (Verified Allergy, Intermediate, hives, 10/02/18) latex (Verified Allergy, Intermediate, rash , 10/02/18) Date Entered Program: Jan 28, 2019 Risk strat for cardiac event: High Exercise Date: Feb 09, 2019 Assessment: Re-Assessment I Stages of change: action Exercise Prescription Plan educate on cardiovascular disease and increase endurance, strength and flexibility through monitored exercise program. Modalities initiated: Nustep (2 sets resistance of 1 for 18 minutes total mets 2.4 RPE 3), Arm Aerometer (resistance of 1 for 4 minutes mets 1.7 RPE 3) Frequency: 2 Duration (Minutes) 30 - 60 minutes total exercise a day. 15 - 20 work intervals in minutes. PRN rest intervals in minutes. Functional Capacity Goal Sustained Metabolic Equivalent of a task (MET) goal of 2.5-3.5 for 15-20 minutes. Intensity: 3-Moderate Progression (METS) Increase by: 0.5 METS every: 3-5 sessions Angina with ex: No Target Heart Rate rest + 35-40 per beta keyshawn therapy Resistance Training: No Hypertension: No Hypertension controlled with: Medication (coreg) Resting 104/60 Peak Exercise BP 110/70 Meds coreg Medications Scheduled Aspirin (Aspirin EC), 81 MG PO DAILY Calcium Carb/Vitamin D3/Vit K1 (Viactiv Soft Chew), 1 CHW PO DAILY, (Reported) Carvedilol (Carvedilol), 0.5 TAB PO BID, (Reported) Cetirizine HCl (Cetirizine HCl), 10 MG PO DAILY, (Reported) Cholecalciferol (Vitamin D3) (Vitamin D3), 2,000 UNIT PO DAILY, (Reported) Denosumab Injection (Prolia), 60 MG SC ASDIRECTED, (Reported) Lactose-Reduced Food (Ensure Active High Protein), 1 LIQ PO DAILY, (Reported) Multivitamins (Thera M Plus Tablet), 1 TAB PO DAILY, (Reported) Pravastatin Sodium (Pravastatin Sodium), 10 MG PO QHS, (Reported) Torsemide (Torsemide), 20 MG PO QPM, (Reported) Scheduled PRN Metolazone (Metolazone), 2.5 MG PO DAILYPRN PRN for edema Intervention Education: RPE Scale (demonstrated independence), warm up/cool down (demonstrated independence) Education Goals Met: No (will continue to educate throughout program.) Target Goals Individual exercise Rx (1) BP 140/90 or 130/80 if DM or CKD (1) Aerobic active 30+min 5 days per week (1) Nutrition Date: Feb 18, 2019 Assessment: Re-Assessment I Stages of change: action Med Change: No Diabetes Diabetes: No Medication Change: No Blood sugar in range: No Current Weight (pounds): 113.2 Intervention 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 Psychosocial Date: Feb 18, 2019 Assessment: Re-Assessment I Stages of change: action Med Change: No Stress Management Class: No Uses Stress Management Skills: No Education Goals Met: No (will continue to educate throughout program.) Target Goal Assess presence or absence of depression using a valid screening tool (1). Maximize coping skills (2). Positive support system (2). Patient/Program Goal Preventative Medication: Yes Aspirin, Yes Beta blockade, Yes Statin/OTR lipid Lowering Fall Risk Assess: Yes (positive for a fall risk) Assisstive Device: wheel chair Provider Assessment Session Number: 1 Provider Assessment: Proceed with rehab (not progressing d/t poor attendance.) Na Goodman RN Feb 18, 2019 15:21
[2019-02-26] MEDS ORDERED: POTA10CA32 PO (16:42)
[2019-02-26] MEDS ORDERED: MAG400TA PO (16:42)
[2019-02-26] MEDS ORDERED: ASPI81TA85 PO (19:41)
[2019-02-26] MEDS ORDERED: [UNRECOGNIZED DRUG - CODE] PO (19:41)
[2019-02-26] MEDS ORDERED: ANAC400T PO (19:41)
[2019-02-26] MEDS ORDERED: VIAC1CHW PO (19:41)
[2019-02-26] MEDS ORDERED: METO25TA PO (19:42)
--- NOTE | 2019-03-05 14:23 | CARECAPL ---
Assessment Account #s: Discharge General Diagnoses: CHF Date of event: October 02, 2018 Physician: NENITA KISER MD Allergies: Coded Allergies: Penicillins (Verified Allergy, Intermediate, hives, 10/02/18) latex (Verified Allergy, Intermediate, rash , 10/02/18) Date Entered Program: Feb 09, 2019 Risk strat for cardiac event: High Exercise Prescription Duration (Minutes) 30 - 60 minutes total exercise a day. 15 - 20 work intervals in minutes. PRN rest intervals in minutes. Functional Capacity Goal Sustained Metabolic Equivalent of a task (MET) goal of for minutes. Progression (METS) Increase by: METS every: sessions Medications Scheduled Aspirin (Aspir 81), 81 MG PO DAILY, (Reported) Calcium Carb/Vitamin D3/Vit K1 (Viactiv 650 mg-12.5 Mcg Chew), 1 EACH PO DAILY, (Reported) Carvedilol (Carvedilol), 0.5 TAB PO BID, (Reported) Cetirizine HCl (Cetirizine HCl), 10 MG PO QHS, (Reported) Cholecalciferol (Vitamin D3) (Vitamin D3), 2,000 UNIT PO DAILY, (Reported) Lactose-Reduced Food (Ensure Active High Protein), 1 LIQ PO DAILY, (Reported) Magnesium Oxide (Magnesium Oxide), 400 MG PO DAILY, (Reported) Pravastatin Sodium (Pravastatin Sodium), 10 MG PO QHS, (Reported) Scheduled PRN Aspirin/Caffeine (Anacin 400-32 mg Tablet), 2 TAB PO DAILY PRN for ARTHRITIS PAIN, (Reported) Discontinued Medications Aspirin (Aspirin EC), 81 MG PO DAILY Discontinued Reason: Re-entering as new Denosumab Injection (Prolia), 60 MG SC ASDIRECTED, (Reported) Lactose-Reduced Food (Ensure Active High Protein), 1 LIQ PO DAILY, (Reported) Discontinued Reason: Re-entering as new Metolazone (Metolazone), 2.5 MG PO DAILYPRN PRN for edema Discontinued Reason: Re-entering as new Metolazone (Metolazone), 2.5 MG PO DAILY PRN for EDEMA, (Reported) Multivitamins (Thera M Plus Tablet), 1 TAB PO DAILY, (Reported) Potassium Chloride (Potassium Chloride), 10 MEQ PO DAILY, (Reported) Torsemide (Torsemide), 20 MG PO QPM, (Reported) Education Goals Met: No Target Goals Individual exercise Rx (1) BP 140/90 or 130/80 if DM or CKD (1) Aerobic active 30+min 5 days per week (1) Nutrition Date: Mar 05, 2019 Assessment: Followup/Discharge Target goal LDL-C<100 if triglycerides are >200 Non-HDL-C should be <130 (1) LDL-C<70 for high risk patients (4) HbA1c<7% (1) BMI<25 Waist cir<40in M/<35in F (1) Education Date: Mar 05, 2019 Assessment: Followup/Discharge Education Goals Met: No Target Goals Complete cessation of tobacco use (1). Psychosocial Date: Mar 05, 2019 Assessment: Followup/Discharge Target Goal Assess presence or absence of depression using a valid screening tool (1). Maximize coping skills (2). Positive support system (2). Provider Assessment Provider Assessment: Please add/change: (Discharge from cardiac rehab. Magdaleno has been hospitalized and is now hospitalized in [place].) Na Goodman RN Mar 05, 2019 14:23
== END 2019-03-05 ==
LOC: M CR 14:35
PROVIDERS: ATTEND Internal Medicine
DX: I50.9 Heart failure, unspecified (principal)

== ENCOUNTER 2019-02-26 16:35 | Inpatient (IN) | payer MEDICARE, OTHER ==
[~2019-02-26] VITALS: Ht 154.9 cm; Wt 52.7 kg
[2019-02-26] MEDS ORDERED: POTA10CA32 PO (16:42)
[2019-02-26] MEDS ORDERED: MAG400TA PO (16:42)
[2019-02-26 17:36] LABS: BASO % 0.8 % (0.0-1.0); EOS % 0.4 % (0.0-3.0); HEMOGLOBIN 18.8 g/dl (13.5-17.5); LYMPH # 0.6 10^3/uL (1.5-5.0); LYMPH % 11.5 % (24.0-44.0); MEAN CORPUSCULAR HEMOGLOBIN 34.6 pg (27.0-33.0); MONO # 0.9 10^3/uL (0.0-0.8); MONO % 18.1 % (0.0-5.0); NEUTROPHILS # 3.3 10^3/uL (1.5-8.5); NEUTROPHILS % 68.8 % (36.0-66.0); RED BLOOD COUNT 5.43 10^6/uL (4.30-6.10); WHITE BLOOD COUNT 4.9 10^3/uL (4.0-10.0)
[2019-02-26 17:37] LABS: PLATELET COUNT, AUTOMATED 74 10^3/uL (150-450)
[2019-02-26 18:24] LABS: ALBUMIN 4.2 GM/DL (3.2-5.2); ALT/SGPT 32 U/L (12-78); BILIRUBIN,DIRECT 0.5 MG/DL (0.0-0.2); BILIRUBIN,TOTAL 2.4 MG/DL (0.2-1.0); BLOOD UREA NITROGEN 62 MG/DL (7-18); CALCIUM LEVEL 10.4 MG/DL (8.8-10.2); CARBON DIOXIDE LEVEL 39 MEQ/L (21-32); CHLORIDE LEVEL 82 MEQ/L (98-107); CK-MB VALUE MASS 4.9 NG/ML (<3.6); CPK CREATINE PHOSPHOKINASE 131 U/L (39-308); CREATININE FOR GFR 1.03 MG/DL (0.70-1.30); GLOMERULAR FILTRATION RATE > 60.0 (>42); GLUCOSE, FASTING 108 MG/DL (70-100); MB/CK RELATIVE INDEX 3.74 (< OR =4); NT-PRO BNP 13491 PG/ML (<125); POTASSIUM SERUM 4.5 MEQ/L (3.5-5.1); SODIUM LEVEL 131 MEQ/L (136-145); TOTAL PROTEIN 7.1 GM/DL (6.4-8.2); TROPONIN I 0.22 NG/ML (< 0.10)
--- NOTE | 2019-02-26 18:43 | REP ---
Single view chest: 02/26/2019. Indication: Dyspnea. Comparison: 10/04/2018. Findings: Compared to the previous study, no significant changes are present. Right-sided pleural effusion is present. The right lung is incompletely aerated. No new air space consolidations are present. The cardiomediastinal silhouette is unchanged. Left-sided pacemaker is present with the pacing lead intact. There is no pneumothorax. Impression: Stable chronic changes compared to 10/04/2018. Electronically Signed by Laurent Barry DO 02/26/2019 06:34 P
[2019-02-26] MEDS ORDERED: ACETAMINOPHEN TAB 650MG DOSE (2X325MG) PO PRN (19:30)
[2019-02-26] MEDS ORDERED: FUROSEMIDE 40 MG/4 ML VIAL (J1940) IV ONE ×2 (19:30→22:15)
[2019-02-26] MEDS ORDERED: ASPI81TA85 PO (19:41)
[2019-02-26] MEDS ORDERED: ANAC400T PO (19:41)
[2019-02-26] MEDS ORDERED: VIAC1CHW PO (19:41)
[2019-02-26] MEDS ORDERED: [UNRECOGNIZED DRUG - CODE] PO (19:41)
[2019-02-26] MEDS ORDERED: METO25TA PO (19:42)
--- NOTE | 2019-02-26 20:07 | HPEPDOC ---
[facility] Medical History & Physical Date of Admission Feb 26, 2019 Date of Service: Feb 26, 2019 Primary Care Physician: Shiela Shi Attending Physician: CARLEY CID MD History and Physical TIME OF SERVICE: 9:05 PM CHIEF COMPLAINT: Shortness of breath HISTORY OF PRESENT ILLNESS: This is a 74-year-old male who was sent by his Block Greaser for further evaluation of his dyspnea. He reports feeling short of breath off-and-on for about 4 weeks, but over the last few days his dyspnea became worse. He drove to [employer] about 4 weeks ago and ate several meals out at a restaurant. Other associated symptoms include worsening lower extremity edema, cough productive of clear sputum, orthopnea, and worsening dyspnea with exertion. He is able to walk with a walker but can't quantify how far he can walk without having to stop to catch his breath. He denies having fevers, denies any chills, denies having a runny nose, denies having sick contacts. He received 40 of Lasix in the ED at around 8:15PM but has not yet voided. He was last admitted in September this year for management of acute on chronic hypoxemic hypercarbic respiratory failure secondary to fluid overload. REVIEW OF SYSTEMS: 12 point review of systems negative except as listed in HPI PAST MEDICAL/ SURGICAL HISTORY: Chronic systolic/diastolic congestive heart failure , EF 20-25% , has an AICD Restrictive lung disease secondary to 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. Chronic CAD status post NV Chronic elevated troponin. Status post spinal fusion surgery Unsteady gait secondary to bilateral foot drop. Osteoporosis. Prostate cancer status post radiation. 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 Chronic thrombocytopenia SOCIAL HISTORY: Former smoker. Takes alcohol occasionally. , lives with his FAMILY HISTORY: Mother had coronary artery disease ALLERGIES: Please see below. HOME MEDICATIONS: Please see below. PHYSICAL EXAMINATION: VITAL SIGNS: Please see below. GENERAL APPEARANCE: Well-nourished, well-developed, not in apparent distress HEENT: Normocephalic, atraumatic, mucous members moist and pink CARDIOVASCULAR: Regular rate and rhythm. No murmurs, rubs or gallops LUNGS: He is using accessory muscles, is able to speak full sentences without having to stop taking breath. He has expiratory crackles bilaterally ABDOMEN: Not distended, soft and nontender on palpation MUSCULOSKELETAL: He has +1 bilateral lower extremity edema that slightly worse at the left, his hands are blue and cold to touch NEUROLOGICAL: Cranial nerves II 12 are grossly intact. Speech is not dysarthric PSYCHIATRIC: Alert and oriented to person, place and time, able to understand and follow commands LABORATORY DATA: See below. IMAGING: Chest x-ray " Findings: Compared to the previous study, no significant changes are present. Right-sided pleural effusion is present. The right lung is incompletely aerated. No new air space consolidations are present. The cardiomediastinal silhouette is unchanged. Left-sided pacemaker is present with the pacing lead intact. There is no pneumothorax." ASSESSMENT: Mr. Flores is a 74-year-old male with a past medical history of systolic/ diastolic CHF, chronic HTN chronic CAD, restrictive lung disease on TAPAN, kyphoscoliosis, and unsteady gait will be admitted for management of acute shortness of breath, possibly due to fluid overload. PLAN: 1. Dyspnea possibly 2/2 acute chronic systolic/ diastolic CHF The patient admits to eating out at a restaurant around 4 weeks ago, which is when his shortness of breath started. It is likely that he was exposed to excessive amounts of salt. His troponin is slightly elevated but lower than it was treated previous admissions. He is BMP is greater than 13,000, which is higher than it was during his previous admission His EKG showed SVT w a HR of 108 Echo August 2018 systolic and diastolic dysfunction + mod pulm HTN Plan: admit to ICU for BIPAP w Pulm consult / telemetry / elevate head of bed to 45 degrees/ Is/OS, daily weights, fluid restriction to 1.5L or 67oz, salt restriction to 2G / f/u repeat ABG, D-dimer, TSH, trend Troponin, / he on torsemide 20 g by mouth at home / he received 40mg of IV lasix in the ED, per d/w will start Dobutamine prior to giving an additional dose of 40 mg of Lasix IV tonight and continue with Lasix 60 mg IV daily / continue with metolazone & Coreg / continue with potassium and magnesium supplements. He is not on an RITIKA inhibitor, ARB, ANRI or K sparing diuretic at home / will repeat BNP prior to discharge for prognostic purposes / Cardio consult 2. Right Pleural Effusion Plan: If his breathing doesn't improve after diuresis, the daytime team may consider IR consult for paracentesis 3. TAPAN. Plan: Continue home BiPAP. 4 Secondary Erythrocytosis His hemoglobin is 18 which is increased from 15 during previous admissions Suspect this is due to chronic hypoxia. Plan: Follow-up ABG/ continue BiPAP 5. Transaminitis likely secondary to liver congestion Plan: trend LFTs 6. Chronic CAD. Plan: Continue home meds 7. Osteoporosis. Plan: Continue with Pramod map is scheduled 8. Chronic Thrombocytopenia. Plan: Follow up CBC. Monitor for bleeding DVT prophylaxis with Lovenox Disposition pending clinical course. 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 the CTA confirmed the presence of small non- occlusive PE he hasn't received lovenox yet Plan: d/c lovenox and start apixaban 10mg PO BID for 7 days then 5mg PO BID thereafter Vital Signs Vital Signs Date Time Temp Pulse Resp B/P (MAP) Pulse Ox O2 Delivery O2 Flow Rate FiO2 02/26/19 19:54 73 24 121/86 (98) 92 Room Air 02/26/19 16:35 96.5 Laboratory Data Labs 24H Laboratory Tests 2 02/26/19 17:20: Immature Granulocyte % (Auto) 0.4, Neutrophils (%) (Auto) 68.8H, Lymphocytes (%) (Auto) 11.5L, Monocytes (%) (Auto) 18.1H, Eosinophils (%) (Auto) 0.4, Basophils (%) (Auto) 0.8, Neutrophils # (Auto) 3.3, Lymphocytes # (Auto) 0.6L, Monocytes # (Auto) 0.9H, Eosinophils # (Auto) 0.0, Basophils # (Auto) 0.0, Nucleated Red Blood Cells % (auto) 0.0, Immature Platelet Fraction 22.8H, Anion Gap 10, Glomerular Filtration Rate > 60.0, Lactic Acid Level 2.9*H, Calcium Level 10.4H, Total Bilirubin 2.4H, Direct Bilirubin 0.5H, Aspartate Amino Transf (AST/SGOT) 72H, Alanine Aminotransferase (ALT/SGPT) 32, Alkaline Phosphatase 103, Total Creatine Kinase 131, Creatine Kinase MB 4.9H, Creatine Kinase MB Relative Index 3.74, Troponin I 0.22H, MJ-Uox-V-Type Natriuretic Peptide 63438Q, Total Protein 7.1, Albumin 4.2, Albumin/Globulin Ratio 1.45, Thyroid Stimulating Hormone (TSH) 2.550 CBC/BMP Laboratory Tests 02/26/19 17:20 Home Medications Scheduled Aspirin (Aspir 81) 81 Mg Tablet.dr, 81 MG PO DAILY Calcium Carb/Vitamin D3/Vit K1 (Viactiv 650 mg-12.5 Mcg Chew) 1 Each Tab.chew, 1 EACH PO DAILY Carvedilol (Carvedilol) 3.125 Mg Tablet, 0.5 TAB PO BID take if SBP > 95 Cetirizine HCl (Cetirizine HCl) 10 Mg Tablet, 10 MG PO QHS Cholecalciferol (Vitamin D3) (Vitamin D3) 1,000 Unit Tablet, 2,000 UNIT PO DAILY Denosumab Injection (Prolia) 60 Mg/1 Ml Syringe, 60 MG SC ASDIRECTED EVERY SIX MONTHS, LAST DOSE WAS IN APRIL 2018 Lactose-Reduced Food (Ensure Active High Protein) 414 Ml Liquid, 1 LIQ PO DAILY Magnesium Oxide (Magnesium Oxide) 400 Mg Tablet, 400 MG PO DAILY Multivitamins (Thera M Plus Tablet) 1 Tab Tab, 1 TAB PO DAILY Potassium Chloride (Potassium Chloride) 10 Meq Capsule.er, 10 MEQ PO DAILY Pravastatin Sodium (Pravastatin Sodium) 10 Mg Tab, 10 MG PO QHS Torsemide (Torsemide) 20 Mg Tablet, 20 MG PO QPM Scheduled PRN Aspirin/Caffeine (Anacin 400-32 mg Tablet) 1 Each Tablet, 2 TAB PO DAILY PRN for ARTHRITIS PAIN Metolazone (Metolazone) 2.5 Mg Tablet, 2.5 MG PO DAILY PRN for EDEMA Allergies Coded Allergies: Penicillins (Verified Allergy, Intermediate, hives, 10/02/18) latex (Verified Allergy, Intermediate, rash , 10/02/18) A-FIB/CHADSVASC A-FIB History Current/History of A-Fib/PAF?: No Current PO Anticoag Therapy: No CARLEY CID MD Feb 26, 2019 20:07
[2019-02-26 21:03] VITALS: BP 104/51
[2019-02-26 21:31] LABS: ABG BASE EXCESS 16.1 (-2.0-2.0); ABG HCO3 43.4 MEQ/L (22.0-26.0); ABG O2 SATURATION 87.4 % (95.0-99.0); ABG PARTIAL PRESSURE CO2 56.9 mmHg (35.0-45.0); ABG STANDARD HCO3 39.9 MEQ/L (22.0-26.0); ABG TOTAL CO2 45.1 MEQ/L (23.0-31.0)
[2019-02-26 22:07] VITALS: BP 104/58
[2019-02-26] MEDS ORDERED: DOBUTamine HCL 500,000 MCG in IV 1 EA IV SCH (22:26)
[2019-02-26] MEDS ORDERED: PILL CUTTER 1 EACH XX PRN (22:30)
[2019-02-26 23:00] VITALS: BP 100/55
[2019-02-26 23:18] LABS: MAGNESIUM LEVEL 2.6 MG/DL (1.8-2.4); PHOSPHORUS LEVEL 3.6 MG/DL (2.5-4.9); TROPONIN I 0.25 NG/ML (< 0.10)
[2019-02-26] MEDS: DOBUTamine HCL 500,000 MCG in IV 1 EA IV SCH (23:28)
[2019-02-26] MEDS: CARVedilol 3.125 MG TAB PO SCH (23:56)
[2019-02-26] MEDS: CETIRIZINE (ZyrTEC) 10 MG TAB PO SCH (23:56)
[2019-02-26] MEDS: PRAVASTATIN 10 MG TAB PO SCH (23:56)
[2019-02-27] VITALS (26 sets, daily range): BP systolic 83–100; BP diastolic 45–67
[2019-02-27] MEDS ORDERED: FUROSEMIDE 40 MG/4 ML VIAL (J1940) IV ONE
[2019-02-27] MEDS ORDERED: ISOVUE-370 76% 100ML VIAL (Q9967) As Ordered ONE (00:28)
[2019-02-27] MEDS ORDERED: PNEUMOCOCCAL VACCINE 0.5ML SYRINGE(90732) PNEUMOVAX 23 IM SCH (02:15)
--- NOTE | 2019-02-27 02:26 | REPVR ---
PROCEDURE INFORMATION: Exam: CT Angiography Chest With Contrast Exam date and time: 02/27/2019 12:57 AM Clinical history: 74 years old, male; Dyspnea; Additional info: Dyspnea with elevated d-dimer TECHNIQUE: Imaging protocol: Computed tomographic angiography of the chest with intravenous contrast. 3D rendering: MIP reconstructed images were created and reviewed. Radiation optimization: All CT scans at this facility use at least one of these dose optimization techniques: automated exposure control; mA and/or kV adjustment per patient size (includes targeted exams where dose is matched to clinical indication); or iterative reconstruction. Contrast material: ISOVUE 370; Contrast volume: 75 ml; Contrast route: IV; COMPARISON: CT Chest with contrast 02/15/2014 10:03 AM FINDINGS: Pulmonary arteries: Nonocclusive pulmonary emboli in the right middle and lower lobe pulmonary arteries were. No large central embolism or emboli in the left lung are seen. Aorta: Ascending thoracic aorta is aneurysmal at 4.5 cm. Lungs: Bibasilar atelectasis with consolidation in portions of the dependent lower lobes, worse on the right. Pleural space: Large pleural effusion smaller left pleural effusion. No pneumothorax. Heart: Mild cardiomegaly. Advanced coronary artery atherosclerotic disease is present. Lymph nodes: Unremarkable. No enlarged lymph nodes. Bones/joints: Severe thoracic dextroscoliosis. Soft tissues: Unremarkable. IMPRESSION: 1. Pulmonary emboli in the right middle and lower lobes. 2. Bibasilar consolidation may be due to atelectasis or pneumonia. Also consider possibility of aspiration. 3. Ascending thoracic aortic aneurysm. 4. Bilateral pleural effusions. Electronically signed by: Jeffery Hardwick On 02/27/2019 02:25:53 AM
[2019-02-27] MEDS: APIXABAN 5 MG TAB (ELIQUIS) PO SCH ×2 (03:11→11:09)
[2019-02-27 04:46] LABS: HEMATOCRIT 51.9 % (42.0-52.0); HEMOGLOBIN 17.1 g/dl (13.5-17.5); MEAN CORPUSCULAR HEMOGLOBIN 34.8 pg (27.0-33.0); MEAN CORPUSCULAR HGB CONC 32.9 g/dl (32.0-36.5); MEAN CORPUSCULAR VOLUME 105.7 fl (80.0-96.0); PLATELET COUNT, AUTOMATED 64 10^3/uL (150-450); RED BLOOD COUNT 4.91 10^6/uL (4.30-6.10); WHITE BLOOD COUNT 4.5 10^3/uL (4.0-10.0)
[2019-02-27 05:17] LABS: ALBUMIN 3.2 GM/DL (3.2-5.2); ALT/SGPT 27 U/L (12-78); BILIRUBIN,TOTAL 2.3 MG/DL (0.2-1.0); BLOOD UREA NITROGEN 60 MG/DL (7-18); CALCIUM LEVEL 9.5 MG/DL (8.8-10.2); CARBON DIOXIDE LEVEL 37 MEQ/L (21-32); CHLORIDE LEVEL 86 MEQ/L (98-107); CREATININE FOR GFR 0.99 MG/DL (0.70-1.30); GLOMERULAR FILTRATION RATE > 60.0 (>42); GLUCOSE, FASTING 86 MG/DL (70-100); MAGNESIUM LEVEL 2.2 MG/DL (1.8-2.4); PHOSPHORUS LEVEL 3.6 MG/DL (2.5-4.9); POTASSIUM SERUM 3.2 MEQ/L (3.5-5.1); SODIUM LEVEL 133 MEQ/L (136-145); TOTAL PROTEIN 6.3 GM/DL (6.4-8.2); TROPONIN I 0.14 NG/ML (< 0.10)
[2019-02-27] MEDS ORDERED: POTASSIUM CHL PWD 20 MEQ PACKET PO ONE (05:45)
[2019-02-27] MEDS ORDERED: KCL 10MEQ/100ML SWI (KRUN) 10 MEQ in IV 1 EA IV ONE (05:45)
[2019-02-27 06:11] LABS: ABG BASE EXCESS 16.6 (-2.0-2.0); ABG HCO3 44.5 MEQ/L (22.0-26.0); ABG O2 SATURATION 90.9 % (95.0-99.0); ABG PARTIAL PRESSURE O2 59.4 mmHg (75.0-100.0); ABG STANDARD HCO3 40.6 MEQ/L (22.0-26.0); ABG TOTAL CO2 46.5 MEQ/L (23.0-31.0)
[2019-02-27 06:15] LABS: ABG PARTIAL PRESSURE CO2 62.6 mmHg (35.0-45.0)
[2019-02-27 08:59] LABS: BLOOD UREA NITROGEN 54 MG/DL (7-18); CALCIUM LEVEL 9.8 MG/DL (8.8-10.2); CARBON DIOXIDE LEVEL 45 MEQ/L (21-32); CHLORIDE LEVEL 85 MEQ/L (98-107); CREATININE FOR GFR 1.13 MG/DL (0.70-1.30); GLOMERULAR FILTRATION RATE > 60.0 (>42); GLUCOSE, FASTING 100 MG/DL (70-100); POTASSIUM SERUM 4.4 MEQ/L (3.5-5.1); SODIUM LEVEL 135 MEQ/L (136-145)
[2019-02-27] MEDS ORDERED: POTASSIUM CHLORIDE 10 MEQ SR TABLET PO SCH (09:00)
[2019-02-27] MEDS ORDERED: FUROSEMIDE 100 MG/10 ML VIAL (J1940) IV SCH (09:00)
[2019-02-27] MEDS ORDERED: ENOXAPARIN 40 MG/0.4 ML SYRINGE (J1650) SC SCH (09:00)
[2019-02-27] MEDS ORDERED: FUROSEMIDE 40 MG/4 ML VIAL (J1940) IV SCH (09:00)
[2019-02-27] MEDS: CARVedilol 3.125 MG TAB PO SCH ×2 (09:49→20:16)
[2019-02-27] MEDS: VITAMIN D 1,000 INTERNATIONAL UNITS TABLET PO SCH (09:50)
[2019-02-27] MEDS: ASPIRIN 81 MG ENTERIC TAB PO SCH (09:50)
[2019-02-27] MEDS: MAGNESIUM OXIDE 400 MG TAB (MAG-OX) PO SCH (09:50)
[2019-02-27] MEDS: metOLazone 2.5 MG TAB PO SCH (09:50)
[2019-02-27] MEDS: POTASSIUM CHLORIDE 10 MEQ PO SCH (11:09)
--- NOTE | 2019-02-27 14:21 | CCN ---
DATE: 02/27/2019 Mr. Flores presented to the emergency room last night at the request of his qa architect. The qa architect has been attempting diuresis having variable effects. The patient had decreased urine output. He states he feels wiped out. He feels that his breathing is close to his baseline; however, he did have shortness of breath at home. He has had no fever, chills. No hemoptysis. He denies any productive cough. No neck swelling. He states he is coexisting with his BiPap. He is on bilevel noninvasive therapy at home at 20/10. He was written for 04/09 here. I have adjusted that. He is currently on dobutamine drip. PHYSICAL EXAMINATION: Temperature is 97.8, pulse is 62, respiratory rate is 20, blood pressure is 191/53 with an oxygen saturation of 96% on room air. General: Awake and alert and oriented. Able to speak full sentences. Does appear dyspneic at baseline. Has upper sternocleidal retractions. HEENT: Sclerae clear and anicteric. Pupils equal, round and reactive to light. Mucous membranes moist without lesions. Tongue is midline. Neck: Supple. No tracheal deviation or mass. There is elevated jugular venous pressure. Pulmonary: Clear to auscultation without rales, rhonchi or wheezes. No dullness to percussion. No accessory muscle use. Cardiac: Distant S1, S2 without audible murmur, rub or gallop. There is elevated JVP. There is chronic systemic edema, which is slightly less than in the office. He is wearing compression stockings. Abdomen: Soft, nontender, nondistended. No hepatosplenomegaly. No masses or hernias. Extremities: No cyanosis or clubbing. Edema as mentioned above. Laboratory evaluation shows a sodium 135, potassium 4.4, chloride 85, bicarbonate of 45, which is elevated, BUN is 54, creatinine of 1.13, glucose of 100, hemoglobin of 17.1, hemoglobin was 18.8 on arrival. White blood cell count of 4.5, D-dimer is elevated. CT shows severe kyphoscoliosis to the point where there is actually impingement in the right lower lobe. The spine almost touches the lateral posterior part of the rib cage. I believe this is causing compression and that is why there is some minimal small pleural effusion on that side. I asked for a reread on the chest CT because I am not convinced that there is evidence of pulmonary embolism. It is felt that there is a "possible," nonobstructing chronic pulmonary embolism in the right middle and right lower lobes. I can see where this may be in question. IMPRESSION: 1. Heart failure, severe systolic heart failure with known ejection fraction of 20-25% on dobutamine. I actually think at this point in time he is dry. I would actually hold diuresis because of his bicarbonate of 45, his hemoconcentration and monitor. Dobutamine may be needed. He does have chronic lower extremity edema that even in his dry state that does not completely disappear. The patient does have elevated BNP, but the patient also has a very enlarged right atrium. I believe he has also severe pulmonary hypertension. 2. Possible nonocclusive pulmonary embolus. In the face of his chronic thrombocytopenia, I think it is difficult to recommend anticoagulation. At this point in time, there is no occlusive PE. There is no evidence of obstruction or distributive shock. The patient is not even hypoxic at this point in time. I would perform lower extremity Dopplers and if these are negative not give anticoagulation, although he does have indications for anticoagulation, including occasional hemoconcentration and pulmonary hypertension. I cannot rule out chronic pulmonary embolism; however, he is not hypoxic at this point in time and there is no large central PE. He runs a risk with his thrombocytopenia of having a significant bleed. 3. Thrombocytopenia, chronic in nature, not yet diagnosed as to cause. 4. Hyponatremia, possibly hypovolemic hyponatremia. Again, would hold diuresis and monitor. 5. Hemoconcentration. As above, I believe this is due to dehydration. 6. Chronic respiratory failure. I have adjusted his BiPap settings because of his hypoventilation. 7. History of prostate cancer, clinically no significant disease on his last oncology note. Overall, this patient has a very poor prognosis given the severity of his systolic dysfunction in the face of chronic respiratory failure from musculoskeletal disease. He is very tenuous. He will require close monitoring. Critical care time was 62 minutes, this excludes all procedures.
--- NOTE | 2019-02-27 14:34 | REP ---
REASON: Pain and swelling. TECHNIQUE: Multiple ultrasonographic images of the deep venous structures of the thigh were obtained from the common femoral vein to the popliteal vein along with Doppler interrogation and color flow Doppler images. FINDINGS: There is no abnormal echogenic material seen within any of the visualized deep venous structures that would suggest acute thrombosis. Coaptation is unremarkable throughout. Doppler interrogation shows an expected response to respiratory variability and augmentation. The color flow images show what appears to be a normal vascular pattern throughout. IMPRESSION: There is no ultrasonographic evidence of deep venous thrombosis involving any of the visualized deep venous structures of the bilateral thigh, as described above. Electronically Signed by Carl Smalls DO 02/27/2019 04:18 P
--- NOTE | 2019-02-27 15:41 | IPNPDOC ---
Text Note Date of Service The patient was seen on 02/27/19. NOTE Subjective: Patient stated that his breathing improved, and almost in his ba seline. Patient denies fever, chills, nausea, vomiting, palpitations, diarrhea or dysuria Objective: GENERAL APPEARANCE: Well-nourished, well-developed, not in apparent distress HEENT: Normocephalic, atraumatic, mucous members moist and pink CARDIOVASCULAR: Regular rate and rhythm. No murmurs, rubs or gallops LUNGS: Lungs clear to auscultation, diminished lung sounds bilaterally ABDOMEN: Not distended, soft and nontender on palpation MUSCULOSKELETAL: Severe kyphoscoliosis NEUROLOGICAL: Cranial nerves II 12 are grossly intact. Speech is not dysarthric PSYCHIATRIC: Alert and oriented to person, place and time Patient is 74 years old male with past medical history of combined systolic and diastolic CHF presented hospital with increased shortness of breath and lower extremity edema. Also patient had decreased urine output on diuretics. Dr. Adams consulted patient and recommended to continue diuresis and dobutamine drip. Acute on chronic systolic CHF Ejection fraction 20-25% Currently on the dobutamine drip Negative balance around 500 mL Urine output around 1.5 L Appreciate/agree with pump room operator consult Pulmonary emboli CTA positive for nonocclusive pulmonary emboli, d-dimer elevated over 1999. Poultry Service Technician Dr. Olguin consulted patient and she does not recommend anticoagulation in the light of thrombocytopenia. Patient is not hypoxic, pulmonary emboli is nonobstructive. Doppler ultrasound negative for DVT Right Pleural Effusion Could be multifactorial and attributed to CHF exacerbation and obstructive effusion secondary to severe kyphoscoliosis Will discuss with production controller team possible paracentesis Thrombocytopenia Chronic Most likely due to myelosuppression due to multiple chronic diseases Hyponatremia Secondary to CHF Resolved Chronic respiratory failure Continue treatment with BiPAP, settings has been adjusted Chronic CAD. Plan: Continue home meds Elevated troponin Most likely secondary to demand ischemia Troponin trended down. Patient denies chest pain EKG negative for acute ischemic changes Deconditioning PT/OT Palliative care Prognosis guarded. VS,Fishbone, I+O VS, Fishbone, I+O Laboratory Tests 02/26/19 17:20 02/27/19 04:36 02/27/19 07:55 Vital Signs Date Time Temp Pulse Resp B/P (MAP) Pulse Ox O2 Delivery O2 Flow Rate FiO2 02/27/19 12:01 98.3 63 18 91/55 (67) 93 Room Air I&O- Last 24 Hours up to 6 AM 02/27/19 05:59 Intake Total 331.9 ml Output Total 1075 ml Balance -743.1 ml ROXANA NAQVI DO Feb 27, 2019 15:41
[2019-02-27 17:09] LABS: BLOOD UREA NITROGEN 57 MG/DL (7-18); CARBON DIOXIDE LEVEL 50 MEQ/L (21-32); CHLORIDE LEVEL 84 MEQ/L (98-107); CREATININE FOR GFR 1.18 MG/DL (0.70-1.30); GLOMERULAR FILTRATION RATE > 60.0 (>42); GLUCOSE, FASTING 100 MG/DL (70-100); POTASSIUM SERUM 3.9 MEQ/L (3.5-5.1); SODIUM LEVEL 135 MEQ/L (136-145)
[2019-02-27] MEDS: DIGOXIN INJ 0.5 MG/2 ML AMP (J1160) IV SCH (20:14)
[2019-02-27] MEDS: PRAVASTATIN 10 MG TAB PO SCH (20:15)
[2019-02-27] MEDS: CETIRIZINE (ZyrTEC) 10 MG TAB PO SCH (20:15)
[2019-02-27 23:02] LABS: BLOOD UREA NITROGEN 63 MG/DL (7-18); CALCIUM LEVEL 9.3 MG/DL (8.8-10.2); CARBON DIOXIDE LEVEL 44 MEQ/L (21-32); CHLORIDE LEVEL 86 MEQ/L (98-107); GLOMERULAR FILTRATION RATE > 60.0 (>42); GLUCOSE, FASTING 122 MG/DL (70-100); POTASSIUM SERUM 3.7 MEQ/L (3.5-5.1); SODIUM LEVEL 134 MEQ/L (136-145)
[2019-02-28] VITALS: BP 95/54
[2019-02-28] MEDS ORDERED: FUROSEMIDE 20 MG/2 ML VIAL (J1940) IV ONE (00:15)
[2019-02-28] MEDS: DIGOXIN INJ 0.5 MG/2 ML AMP (J1160) IV SCH ×3 (00:37→14:46)
[2019-02-28 04:00] VITALS: BP 90/54
[2019-02-28 05:31] LABS: BLOOD UREA NITROGEN 59 MG/DL (7-18); CALCIUM LEVEL 9.2 MG/DL (8.8-10.2); CARBON DIOXIDE LEVEL 45 MEQ/L (21-32); CHLORIDE LEVEL 87 MEQ/L (98-107); CREATININE FOR GFR 0.87 MG/DL (0.70-1.30); GLOMERULAR FILTRATION RATE > 60.0 (>42); GLUCOSE, FASTING 88 MG/DL (70-100); MAGNESIUM LEVEL 2.1 MG/DL (1.8-2.4); SODIUM LEVEL 136 MEQ/L (136-145)
[2019-02-28] MEDS ORDERED: POTASSIUM CHLORIDE 10 MEQ PO ONE (06:00)
[2019-02-28 08:00] VITALS: BP 85/51
[2019-02-28] MEDS ORDERED: POTASSIUM CHLORIDE 10 MEQ SR TABLET PO ONE (08:00)
--- NOTE | 2019-02-28 08:41 | CR ---
DATE OF CONSULTATION: 02/27/2019 REFERRING PROVIDER: Deena Avila MD REASON FOR CONSULTATION: Heart failure. HISTORY OF PRESENT ILLNESS: 74-year-old male well known by the practice with a history of cardiomyopathy and multiple hospitalizations with heart failure, is here on his third hospitalization. He was seen his transportation solutions manager and it was recommended to him to come to the office because he was retaining fluid. When I saw him, I had readjusted the diuretics, but he did not respond and he had blood work done on 02/26/2019 that revealed prerenal azotemia as well as hypokalemia, markedly elevated serum BNP and thrombocytopenia. The patient was called and was referred to the ER for further evaluation. He was admitted and cardiology consult was called. Mr. Manuel Flores has not been having chest pain or palpitations. He however has been having shortness of breath with activities, relieved with rest and increasing bilateral pedal edema. There is no report of fever or chills. There is no report of bleeding. He is compliant with his medications but has not been able to receive full guideline directed medical therapy for his heart failure because of symptomatic hypotension with RITIKA inhibitor as well as Entresto. He has a cough but denies any hemoptysis or fever. He has no nausea or vomiting, diarrhea, melena or hematemesis. PAST MEDICAL HISTORY: He has a past medical history to positive for cardiomyopathy with a markedly depressed global left ventricular systolic function, moderate coronary artery disease involving the RCA and LCX, hyperlipidemia, arthritis, restrictive lung disease, thrombocytopenia. He also has a history of implantable defibrillator for his cardiomyopathy and polio and its complications. There is no history of atrial fibrillation, CVA, diabetes mellitus, thyroid disorders. MEDICATIONS AT HOME: - aspirin 81 mg by mouth daily - calcium with vitamin D one tablet by mouth daily - carvedilol 3.125 mg by mouth twice a day - cetirizine 10 mg by mouth daily - vitamin D 2000 units by mouth daily - multivitamin one tablet by mouth daily - magnesium oxide one tablet by mouth daily - metolazone 2.5 mg by mouth every other day prior to the torsemide - pravastatin 10 mg by mouth daily - torsemide 10 mg tablets one or two tablets daily - KCL recently started 10 mEq by mouth daily PAST SURGICAL HISTORY: Positive for AICD implantation on 09/03/2014. Appendectomy. Tonsillectomy. Surgery done on his back. FAMILY HISTORY: Positive for heart failure and myocardial infarction. SOCIAL HISTORY: The patient lives with his . He does not smoke. He is a former smoker. He has one or two drinks on occasion. ALLERGIES: 1. LATEX. 2. PENICILLIN. ADVANCED DIRECTIVES: The patient is a FULL CODE. PHYSICAL EXAMINATION: The patient is alert and oriented, in no acute distress at rest. His vital signs this evening revealed a blood pressure of 99/55 with pulse of 66, respiration 20-22, and his maximum temperature is 98.3 degrees Fahrenheit with an oxygen saturation of 92% on room air. HEAD: Atraumatic. NECK: Neck is supple with extended jugular. Could not appreciate any carotid bruits. LUNGS: Did not reveal any wheezing or crackles, but decreased breath sounds at the bases, more on the left base than the right. HEART: The heart examination revealed irregular heart sounds without gallops. The PMI is displaced inferiorly and laterally. There is no rub. I could not appreciate any murmurs. ABDOMEN: Soft and tender. EXTREMITIES: Reveal +2 bilateral lower leg edema. NEUROLOGIC EXAMINATION: Negative for focal deficits. LABORATORIES: CBC done this morning revealed a WBC of 4.5, hemoglobin 17.1, hematocrit 51.9 and platelet 64,000. BMP done earlier today revealed a sodium of 135, potassium 3.9, chloride 84, CO2 50, BUN 57, creatinine and 1.18, GFR more than 60 and fasting glucose 100 with a calcium of 10.0. Serum lactic acid on admission was up to 3.0 and today he is 1.9. Serum D-dimer was 2685. Serum proBNP on admission was 13,491. Liver enzymes revealed a total bilirubin of 2.4, AST 72, ALT 32, alkaline phosphatase 103, 2.71, albumin 4.2. LFTs done today revealed an AST of 50, ALT 27, alkaline phosphatase 80, total protein 6.3, albumin 3.2 and total bilirubin was 2.3. ABG was done today and revealed pH of 7.47, pCO2 62.6 and pO2 59.4. IMPRESSION: 1. Heart failure, acute on chronic, secondary to left ventricular systolic dysfunction due to nonischemic cardiomyopathy. The patient has underlying moderate coronary artery disease and this has been asymptomatic. He has an implantable loop recorder for prevention of sudden cardiac due to his depressed LVEF. As mentioned above, he has not been able to receive medically guided therapy for his left ventricular systolic dysfunction in view of the side effects to RITIKA inhibitor and Entresto. He has been on a small dose of beta-keyshawn and spirolactone. Lately, he has been coming to the hospital more often for heart failure. This time, it seemed that noncompliance with diet was a contributing factor, as mentioned above, he had visitors for two 2 weeks and he eating out and this was corroborated by his . On physical examination, however he appears to be cold and for this reason, he will be started on dobutamine. We have give him IV diuretics as needed. While in the hospital, he will be loaded with digoxin. I will reassess his LVEF with an echocardiogram then further recommendations will be given. It seems that he is slowly deteriorating, will see how he responds to the digoxin. This however will not prolong his life, but might decrease the risk for hospitalization from heart failure according to the dig trial. It was a pleasure to participate the care of Mr. Manuel Flores for his underlying cardiac condition. I will continue to monitor him along with you. The case was discussed with gift consultant pottery decoration designer and will be discussed with the hospitalist in the a.m. on 02/28/2019. NUVIA
[2019-02-28] MEDS ORDERED: POTASSIUM CHLORIDE 10 MEQ PO SCH (09:00)
[2019-02-28] MEDS: metOLazone 2.5 MG TAB PO SCH ×2 (09:00→12:07)
--- NOTE | 2019-02-28 09:39 | ECGEPIP ---
[facility] - ED Test Date: 2019-02-26 Pat Name: SHE QUIGLEY Department: Room: - Gender: Male Art Director: ASHELY : 1945 Requested By: SHIRLEY Gaytan Order Number: [id number] Reading MD: Hyacinth Borrero Measurements Intervals [place] Rate: 108 P: MS: 0 QRS: 68 QRSD: 76 T: 97 QT: 193 QTc: 259 Interpretive Statements SUPRAVENTRICULAR TACHYCARDIA LOW QRS VOLTAGE POSSIBLE RIGHT VENTRICULAR CONDUCTION DELAY POSSIBLE ANTERIOR MYOCARDIAL INFARCTION, PROBABLY OLD YARELY IVCD CW 10/02/[address] T WAVE CHANGES Electronically Signed on 02-28-2019 9:38:53 EDT by Hyacinth Borrero
[2019-02-28] MEDS: CARVedilol 3.125 MG TAB PO SCH ×2 (09:54→20:29)
[2019-02-28] MEDS: VITAMIN D 1,000 INTERNATIONAL UNITS TABLET PO SCH (09:55)
[2019-02-28] MEDS: ASPIRIN 81 MG ENTERIC TAB PO SCH (09:55)
[2019-02-28] MEDS: MAGNESIUM OXIDE 400 MG TAB (MAG-OX) PO SCH (09:55)
[2019-02-28] MEDS: POTASSIUM CHLORIDE 10 MEQ PO SCH (09:56)
[2019-02-28 11:00] LABS: BLOOD UREA NITROGEN 59 MG/DL (7-18); CALCIUM LEVEL 9.6 MG/DL (8.8-10.2); CARBON DIOXIDE LEVEL 44 MEQ/L (21-32); CHLORIDE LEVEL 88 MEQ/L (98-107); CREATININE FOR GFR 1.07 MG/DL (0.70-1.30); GLOMERULAR FILTRATION RATE > 60.0 (>42); GLUCOSE, FASTING 128 MG/DL (70-100); POTASSIUM SERUM 4.3 MEQ/L (3.5-5.1); SODIUM LEVEL 138 MEQ/L (136-145)
[2019-02-28 12:00] VITALS: BP 108/53
--- NOTE | 2019-02-28 12:46 | IPN ---
DATE: 02/28/2019 Patient was seen and examined this morning during bedside rounds. He reports his breathing is mostly unchanged, possibly slightly improved. The patient was having some shortness of breath with exertion. He does have occasional cough productive of mucus, although, he feels most of his cough is due to mucus pulling in the back of his throat and possible postnasal drip symptoms. He denies any chest pain. He does report improvement in his urine output and improvement in his chronic lower extremity edema. Patient is still currently on dobutamine drip. PHYSICAL EXAM: Temperature 98.2, pulse 61, respirations 18, blood pressure 90/54, oxygen saturation 90-94% on room air. Ins, is 1.6 liters, out 1.1 liters. General: The patient is awake and alert, is oriented times three. He is not in significant respiratory distress but does use some accessory muscles for respiration. HEENT: Normocephalic, atraumatic. Pupils are reactive to light, and an mucous membranes are moist. Neck is supple. No palpable adenopathy. There is increased jugular venous distention (JVD). Cardiac: Normal S1, S2. Somewhat distant heart sounds with no murmur appreciated. Pulmonary: Diminished breath sounds on the right base more than the left with a few crackles noted. No significant wheezing or rhonchi. Abdomen is soft, nontender, nondistended. No masses palpated. Extremities: There is chronic bilateral pitting edema which patient reports is improved from previous. The patient has severe kyphoscoliosis. LABS: WBC 4.5, hemoglobin 17.1, platelets 64. Chemistry: Sodium is 136, potassium 3.0, chloride is 87, bicarbonate is 45, BUN 59, creatinine 0.87, glucose 88. ABG: pH 7.470, pCO2 62.6, pO2 of 59.4. IMAGING: Lower extremity duplex is negative for deep venous thrombosis (DVT) in the bilateral lower extremities. ASSESSMENT/PLAN: Mr. Flores is a 74-year-old male with a past medical history of congestive heart failure (CHF) with a reduced ejection fraction (EF) and automatic implantable cardioverter-defibrillator (AICD), history of coronary artery disease (CAD), history of chronic hypercarbic respiratory failure secondary to severe kyphoscoliosis from polio with restrictive lung disease on bilevel positive airway pressure (BiPAP), history of prostate cancer status post radiation, thrombocytopenia, who presented with increased shortness of breath and lower extremity edema. The patient was started on dobutamine for inotropic support given his elevated lactate on admission, possibly due to a component of cardiogenic shock due to his severe nonischemic cardiomyopathy. The patient has chronically has had issues with medically-guided therapy for his left ventricular (LV) systolic dysfunction due to hypotension. There was some concern for possible decompensated heart failure requiring intravenous (IV) diuretics due to increased BNP, although suspect he likely has a component of some right-sided heart failure that may be contributing to his chronically elevated BNP. He does also have some chronic pitting edema at baseline. The patient does have a history of being intravascularly depleted easily when he is on diuretics so would need to continue to monitor his fluid balance and his diuretics closely. He does appear somewhat hemoconcentrated on exam and does have a component of metabolic alkalosis as well, so would need to be cautious about diuresis. - Would continue with dobutamine as per cardiology and rate-control medications and treatment for his chronic systolic heart failure. - Would followup his repeat echocardiogram to monitor his systolic function as well as for evaluation of any right-sided disease. - The patient's initial CT angiogram showed a possible nonocclusive pulmonary embolism in his right middle and right lower lobes. His lower extremity duplex was negative for any evidence of deep venous thrombosis (DVT). The patient does not appear to be currently symptomatic, if there were to be an actual pulmonary embolus (PE). He is not hypoxic or tachycardic and, if it were to be nonocclusive, it would suggest a more chronic process. We also discussed that he does have significant thrombocytopenia and anticoagulation would run significant risk of bleeding. He is also on aspirin as well for his history of coronary artery disease. - Would continue with DVT prophylaxis with Lovenox for now to hold if platelets are below 50,000. We discussed using compression stockings chronically as an outpatient to help prevent DVTs. Patient does have some indications for anticoagulation, however, would need to balance that with significant risk of bleeding. For now, would continue with just DVT prophylaxis. - The patient has chronic hypercarbic respiratory failure on bilevel positive airway pressure (BiPAP) at home. Will continue with his home BiPAP while in the hospital at settings of 20/10 at night and with naps. The patient's ABG appears compensated currently. - Would continue to monitor his electrolytes and replete as needed. CODE STATUS: DO NOT RESUSCITATE (DNR) with a trial of intubation. MTDD
[2019-02-28] MEDS: ENOXAPARIN 30 MG/0.3 ML SYR (J1650) SC SCH (14:40)
--- NOTE | 2019-02-28 15:00 | IPNPDOC ---
Text Note Date of Service The patient was seen on 02/28/19. NOTE Subjective: No any acute events overnight. Patient denies fever, chills, nausea, vomiting, palpitations, diarrhea or dysuria Objective: GENERAL APPEARANCE: Well-nourished, well-developed, not in apparent distress HEENT: Normocephalic, atraumatic, mucous members moist and pink CARDIOVASCULAR: Regular rate and rhythm. No murmurs, rubs or gallops LUNGS: Lungs clear to auscultation, diminished lung sounds bilaterally ABDOMEN: Not distended, soft and nontender on palpation MUSCULOSKELETAL: Severe kyphoscoliosis NEUROLOGICAL: Cranial nerves II 12 are grossly intact. Speech is not dysarthric PSYCHIATRIC: Alert and oriented to person, place and time Patient is 74 years old male with past medical history of combined systolic and diastolic CHF presented hospital with increased shortness of breath and lower extremity edema. Also patient had decreased urine output on diuretics. Dr. Adams consulted patient and recommended to continue diuresis and dobutamine drip with digoxin loading. Acute on chronic systolic CHF Ejection fraction 20-25% continue with dobutamine as per cardiology and rate-control medications Continue gentle diuresis in light of yesterday's contraction alkalosis Continue load with digoxin as per cardiology team Pulmonary emboli CTA positive for nonocclusive pulmonary emboli, d-dimer elevated over 1999. Can Repairer Dr. Olguin consulted patient and she does not recommend anticoagulation in the light of thrombocytopenia. Patient is not hypoxic, pulmonary emboli is nonobstructive. Doppler ultrasound negative for DVT Right Pleural Effusion Could be multifactorial and attributed to CHF exacerbation and obstructive effu lalo secondary to severe kyphoscoliosis Follow clinically Thrombocytopenia Chronic Most likely due to myelosuppression due to multiple chronic diseases Hyponatremia Secondary to CHF Resolved Chronic respiratory failure Continue treatment with BiPAP, settings has been adjusted Chronic CAD. Plan: Continue home meds Elevated troponin Most likely secondary to demand ischemia Troponin trended down. Patient denies chest pain EKG negative for acute ischemic changes Deconditioning PT/OT Palliative care Prognosis guarded. VS,Fishbone, I+O VS, Fishbone, I+O Laboratory Tests 02/27/19 16:14 02/27/19 22:25 02/28/19 04:53 02/28/19 10:11 Vital Signs Date Time Temp Pulse Resp B/P (MAP) Pulse Ox O2 Delivery O2 Flow Rate FiO2 02/28/19 12:00 98.5 53 24 108/53 (75) 93 Room Air I&O- Last 24 Hours up to 6 AM 02/28/19 06:00 Intake Total 1411.2 ml Output Total 1075 ml Balance 336.2 ml ROXANA NAQVI DO Feb 28, 2019 15:00
[2019-02-28 16:00] VITALS: BP 105/55
[2019-02-28 16:42] LABS: BLOOD UREA NITROGEN 59 MG/DL (7-18); CALCIUM LEVEL 9.6 MG/DL (8.8-10.2); CARBON DIOXIDE LEVEL 45 MEQ/L (21-32); CHLORIDE LEVEL 86 MEQ/L (98-107); CREATININE FOR GFR 1.03 MG/DL (0.70-1.30); GLOMERULAR FILTRATION RATE > 60.0 (>42); GLUCOSE, FASTING 89 MG/DL (70-100); POTASSIUM SERUM 4.7 MEQ/L (3.5-5.1); SODIUM LEVEL 134 MEQ/L (136-145)
[2019-02-28 20:00] VITALS: BP 94/55
[2019-02-28] MEDS: PRAVASTATIN 10 MG TAB PO SCH (20:29)
[2019-02-28] MEDS: CETIRIZINE (ZyrTEC) 10 MG TAB PO SCH (20:29)
[2019-02-28 20:55] LABS: BLOOD UREA NITROGEN 57 MG/DL (7-18); CALCIUM LEVEL 9.5 MG/DL (8.8-10.2); CARBON DIOXIDE LEVEL 41 MEQ/L (21-32); CHLORIDE LEVEL 86 MEQ/L (98-107); CREATININE FOR GFR 1.07 MG/DL (0.70-1.30); GLOMERULAR FILTRATION RATE > 60.0 (>42); GLUCOSE, FASTING 122 MG/DL (70-100); POTASSIUM SERUM 4.6 MEQ/L (3.5-5.1); SODIUM LEVEL 135 MEQ/L (136-145)
[2019-03-01] VITALS: BP 95/50
[2019-03-01 04:00] VITALS: BP 99/52
[2019-03-01 05:22] LABS: HEMATOCRIT 53.4 % (42.0-52.0); HEMOGLOBIN 17.4 g/dl (13.5-17.5); MEAN CORPUSCULAR HEMOGLOBIN 34.9 pg (27.0-33.0); MEAN CORPUSCULAR HGB CONC 32.6 g/dl (32.0-36.5); RED BLOOD COUNT 4.99 10^6/uL (4.30-6.10); WHITE BLOOD COUNT 3.9 10^3/uL (4.0-10.0)
[2019-03-01 05:24] LABS: PLATELET COUNT, AUTOMATED 66 10^3/uL (150-450)
[2019-03-01 05:34] LABS: ALT/SGPT 27 U/L (12-78); BLOOD UREA NITROGEN 59 MG/DL (7-18); CALCIUM LEVEL 9.2 MG/DL (8.8-10.2); CARBON DIOXIDE LEVEL 43 MEQ/L (21-32); CHLORIDE LEVEL 88 MEQ/L (98-107); CREATININE FOR GFR 1.05 MG/DL (0.70-1.30); GLOMERULAR FILTRATION RATE > 60.0 (>42); GLUCOSE, FASTING 90 MG/DL (70-100); POTASSIUM SERUM 4.6 MEQ/L (3.5-5.1); SODIUM LEVEL 135 MEQ/L (136-145)
[2019-03-01 05:35] LABS: ALBUMIN 3.5 GM/DL (3.2-5.2); BILIRUBIN,DIRECT 0.6 MG/DL (0.0-0.2); BILIRUBIN,TOTAL 2.7 MG/DL (0.2-1.0); MAGNESIUM LEVEL 2.3 MG/DL (1.8-2.4); NT-PRO BNP 10696 PG/ML (<125); TOTAL PROTEIN 6.4 GM/DL (6.4-8.2)
--- NOTE | 2019-03-01 07:06 | ECHO ---
DATE OF STUDY: 02/28/2019 REFERRING PHYSICIAN: Dr. Yadiel Adams INDICATION: Heart failure unspecified, shortness of breath. HEIGHT: 61 inches. WEIGHT: 109 pounds. 2D MEASUREMENTS: Aortic root 3.5 cm Proximal ascending aorta 3.2 cm Left atrium 3.7 cm Left ventricle diastole 4.7 cm Ventricular septum 0.90 cm Posterior wall 1.04 cm LVOT 2.1 cm Right ventricle 3.5 cm Inferior vena cava 2.4 cm with marked reduction of respiratory variation DOPPLER MEASUREMENTS: Mild aortic regurgitation. Aortic valve velocity 77.5 cm/s LVOT velocity 49.6 cm/s Mild mitral regurgitation. Severe tricuspid regurgitation. Estimated right ventricle systolic pressure at least 55 mmHg assuming a right atrial pressure at least 20 mmHg. Mild pulmonic regurgitation. MITRAL ANNULAR TISSUE DOPPLER: E prime lateral 6.7 cm/s E prime septal 2.8 cm/s DESCRIPTION: Rhythm was sinus with ventricular bigeminy. Image quality was fair. No pericardial effusion. This was a 2D, M mode, color flow Doppler and pulse wave Doppler examination and included mitral annular tissue Doppler. CONCLUSIONS: 1. Left ventricle is normal in size and wall thickness at end diastole. Severe global LV hypokinesis with superimposed paradoxical septal motion. Low cardiac output state. Left ventricular ejection fraction (LVEF) 10% -15% by visual assessment. 2. Severe mitral annular calcification. Mild mitral regurgitation. No mitral stenosis. 3. Mild aortic valve sclerosis of a three-cuspid aortic valve. Mild aortic regurgitation. 4. Severe tricuspid regurgitation with structurally normal appearing tricuspid leaflets. Systolic flow reversible in the hepatic veins consistent with severe tricuspid regurgitation. Suggestive of at least moderate elevation of estimated right ventricle systolic pressure (at least 55 mmHg). 5. Normal right ventricle size with moderate reduction in overall RV systolic function. Global RV hypokinesis. 6. 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 Suggestive of elevated central venous pressure of at least 20 mmHg. 7. Abnormal LV diastolic function.
[2019-03-01 08:00] VITALS: BP 94/55
[2019-03-01] MEDS: POTASSIUM CHLORIDE 10 MEQ PO SCH (09:26)
[2019-03-01] MEDS: VITAMIN D 1,000 INTERNATIONAL UNITS TABLET PO SCH (09:27)
[2019-03-01] MEDS: MAGNESIUM OXIDE 400 MG TAB (MAG-OX) PO SCH (09:27)
[2019-03-01] MEDS: ASPIRIN 81 MG ENTERIC TAB PO SCH (09:27)
[2019-03-01] MEDS: CARVedilol 3.125 MG TAB PO SCH ×2 (09:30→20:50)
[2019-03-01] MEDS: ENOXAPARIN 30 MG/0.3 ML SYR (J1650) SC SCH (09:31)
[2019-03-01 10:51] LABS: BLOOD UREA NITROGEN 56 MG/DL (7-18); CALCIUM LEVEL 9.2 MG/DL (8.8-10.2); CARBON DIOXIDE LEVEL 43 MEQ/L (21-32); CHLORIDE LEVEL 87 MEQ/L (98-107); CREATININE FOR GFR 1.13 MG/DL (0.70-1.30); GLOMERULAR FILTRATION RATE > 60.0 (>42); GLUCOSE, FASTING 143 MG/DL (70-100); SODIUM LEVEL 134 MEQ/L (136-145)
[2019-03-01 12:00] VITALS: BP 100/58
[2019-03-01] MEDS ORDERED: FUROSEMIDE 20 MG/2 ML VIAL (J1940) IV ONE (13:00)
--- NOTE | 2019-03-01 15:00 | IPNPDOC ---
Text Note Date of Service The patient was seen on 03/01/19. NOTE Subjective: No any acute events overnight. Pt is upset about Echo result and he is open to discuss palliative care option Patient denies fever, chills, nausea, vomiting, palpitations, diarrhea or dysuria Objective: GENERAL APPEARANCE: Well-nourished, well-developed, not in apparent distress HEENT: Normocephalic, atraumatic, mucous members moist and pink CARDIOVASCULAR: Regular rate and rhythm. No murmurs, rubs or gallops LUNGS: Lungs clear to auscultation, diminished lung sounds bilaterally ABDOMEN: Not distended, soft and nontender on palpation MUSCULOSKELETAL: Severe kyphoscoliosis NEUROLOGICAL: Cranial nerves II 12 are grossly intact. Speech is not dysarthric PSYCHIATRIC: Alert and oriented to person, place and time Patient is 74 years old male with past medical history of combined systolic and diastolic CHF presented hospital with increased shortness of breath and lower extremity edema. Also patient had decreased urine output on diuretics. Dr. Adams consulted patient and recommended to continue diuresis and dobutamine drip with digoxin loading. Acute on chronic systolic CHF Ejection fraction 20-25% continue with dobutamine as per cardiology and rate-control medications Continue gentle diuresis in light of recent contraction alkalosis Continue load with digoxin as per cardiology team Pulmonary emboli CTA positive for nonocclusive pulmonary emboli, d-dimer elevated over 1999. Stoner Hand Dr. Olguin consulted patient and she does not recommend anticoagulation in the light of thrombocytopenia. Patient is not hypoxic, p ulmonary emboli is nonobstructive. Doppler ultrasound negative for DVT Right Pleural Effusion Could be multifactorial and attributed to CHF exacerbation and obstructive effusion secondary to severe kyphoscoliosis Follow clinically Thrombocytopenia Chronic Most likely due to myelosuppression due to multiple chronic diseases Hyponatremia Secondary to CHF Resolved Chronic respiratory failure Continue treatment with BiPAP, settings has been adjusted Chronic CAD. Plan: Continue home meds Elevated troponin Most likely secondary to demand ischemia Troponin trended down. Patient denies chest pain EKG negative for acute ischemic changes Deconditioning PT/OT Palliative care Prognosis guarded. VS,Fishbone, I+O VS, Fishbone, I+O Laboratory Tests 02/28/19 15:32 02/28/19 19:58 03/01/19 04:53 03/01/19 10:07 Vital Signs Date Time Temp Pulse Resp B/P (MAP) Pulse Ox O2 Delivery O2 Flow Rate FiO2 03/01/19 12:00 97.9 50 24 100/58 (72) 97 Room Air I&O- Last 24 Hours up to 6 AM 03/01/19 05:59 Intake Total 947.6 ml Output Total 600 ml Balance 347.6 ml ROXANA NAQVI DO Mar 01, 2019 15:00
--- NOTE | 2019-03-01 15:54 | IPN ---
DATE: 03/01/2019 Patient was seen and examined this morning during bedside rounds. Patient reported breathing is unchanged. Continues to have some episodes of shortness of breath with exertion. He denies any significant chest pain. Has not had any significant coughing, but he does have some throat clearing occasionally productive of mucus. He does have some slight increased lower extremity edema. Patient is still on dobutamine drip at 4 mcg/kg/min. PHYSICAL EXAMINATION: Temperature 97.3, pulse 52, respirations 20, blood pressure 94/55, oxygen saturation 96% on room air. INPUT AND OUTPUT: In 707, out 775 mL. GENERAL: Patient is awake and alert, is oriented times three. He is able to speak in complete sentences, but does use some accessory muscles for respiration. HEENT: Normocephalic, atraumatic. Pupils reactive to light. Mucous membranes are moist. Neck is supple. There is positive jugular venous distention (JVD), but no palpable cervical adenopathy. CARDIAC: Normal S1, S2. Somewhat distant heart sounds. No murmurs appreciated. PULMONARY: Decreased breath sounds on the right more than the left, with a few crackles noted. No significant wheezing or rhonchi. ABDOMEN: Soft, nontender, nondistended. No masses palpated. EXTREMITIES: There is slight increase in the bilateral pitting edema, with +2 pitting edema bilaterally. patient has severe kyphoscoliosis. LABORATORY DATA: WBC 2.9, hemoglobin 17.4, platelets 66. CHEMISTRY: Sodium is 135, potassium 4.6, chloride 88, bicarbonate 43, BUN 59, creatinine 1.05, glucose is 90. Total bilirubin 2.7, AST 45, ALT 27. BNP is approximately 10,000. IMAGING STUDIES: Echocardiogram showed ejection fraction (EF) of 10-15%, with severe hypokinesis and paradoxical septal wall motion. There is mild mitral regurgitation. Severe tricuspid valve regurgitation. There is moderate pulmonary hypertension with an right ventricular (RV) systolic pressure 55 mmHg. There is moderately reduced function of the right ventricle with hypokinesis. Inferior vena cava (IVC) is dilated with an estimated central venous pressure (CVP) of 20. ASSESSMENT AND PLAN: Mr. Flores is a 74-year-old male with a past medical history of congestive heart failure (CHF) with reduced EF and automatic implantable cardioverter defibrillator (AICD), history of coronary artery disease (CAD), history of chronic hypercarbic respiratory failure secondary to severe kyphoscoliosis from polio, with restrictive lung disease on bilevel positive airway pressure (BiPAP), history of prostate cancer status post radiation, thrombocytopenia, who presented with increased shortness of breath and lower extremity edema. Patient was thought to be in mild cardiogenic shock with elevated lactic acidosis on admission due to his severe nonischemic cardiomyopathy. He was started on dobutamine for ionotropic support. Patient has chronically had issues with medical management and optimization for his chronic left ventricular heart failure due to hypotension. Patient's repeat echocardiogram does show progression and further reduction of his left ventricular ejection fraction (LVEF), as well as with evidence of biventricular heart failure, now with reduced function on the right ventricle and some evidence of pulmonary hypertension. This is likely Group 2 secondary to his severe left-sided heart disease. - Patient does have significantly elevated CVP and he will require some gentle diuresis. Patient previously has had issues with alkalosis with diuresis and so he does need to be monitored closely. He currently is net even, but would like him to be slightly net negative. He previously had been on torsemide 20 mg at home with metolazone as needed. Therefore, would give Lasix 20 mg intravenous (IV) and continue with his metolazone that he has been getting. - Will continue dobutamine as per cardiology. Patient appears to be requiring the ionotropic support for the progression of his severe left ventricular heart failure. I discussed some of the prognosis with the patient and his options, such as chronic ionotropic support with an infusion pump as an outpatient with dobutamine potentially or another agent. Patient will followup with Dr. Adams from cardiology for further adjustments and potential initiation of infusion therapy. - Continue with rate control medications as per cardiology. - Will continue to monitor electrolytes and replete as needed. Will need to monitor for his alkalosis and continue with his BiPAP for his chronic hypercarbic respiratory failure, for which he is currently compensated. - Continue with home BiPAP at 20/10 at night and with naps. - Patient had a CT angiogram on admission, which showed possible nonocclusive pulmonary embolism (PE) in his right middle and right lower lobes. His lower extremity duplex was negative for deep venous thrombosis (DVT). Given the questionable appearance of thrombus on CT, as well as suggestion that if it was a PE that appears more chronic in nature and with the risk of bleeding with his thrombocytopenia, the decision was made to hold full-dose anticoagulation. - Would continue with aspirin and continue with DVT prophylaxis. Lovenox for now, with hold parameters to hold if his platelet count drops below 50,000. Patient does have some other indications for anticoagulation, especially given his severely reduced EF, but would need to balance that with the significant risk of bleeding that he has with his thrombocytopenia. CODE STATUS: DO NOT RESUSCITATE, with a trial of intubation. Palliative care has been consulted, appreciate their recommendations and evaluation of the patient. NUVIA
[2019-03-01 16:00] VITALS: BP 88/54
[2019-03-01 20:00] VITALS: BP 97/54
[2019-03-01] MEDS: CETIRIZINE (ZyrTEC) 10 MG TAB PO SCH (20:51)
[2019-03-01] MEDS: PRAVASTATIN 10 MG TAB PO SCH (20:52)
[2019-03-02] VITALS (7 sets, daily range): BP systolic 90–107; BP diastolic 51–61
[2019-03-02 05:18] LABS: MAGNESIUM LEVEL 2.5 MG/DL (1.8-2.4)
[2019-03-02] MEDS: DOBUTamine HCL 500,000 MCG in IV 1 EA IV SCH (05:42)
[2019-03-02 06:01] LABS: BLOOD UREA NITROGEN 59 MG/DL (7-18); CALCIUM LEVEL 8.8 MG/DL (8.8-10.2); CARBON DIOXIDE LEVEL 43 MEQ/L (21-32); CHLORIDE LEVEL 89 MEQ/L (98-107); CREATININE FOR GFR 1.07 MG/DL (0.70-1.30); GLOMERULAR FILTRATION RATE > 60.0 (>42); GLUCOSE, FASTING 93 MG/DL (70-100); POTASSIUM SERUM 4.9 MEQ/L (3.5-5.1); SODIUM LEVEL 135 MEQ/L (136-145)
[2019-03-02] MEDS: CARVedilol 3.125 MG TAB PO SCH ×2 (09:00→20:01)
[2019-03-02] MEDS: DIGOXIN 0.125 MG TAB PO SCH (09:00)
[2019-03-02] MEDS: FUROSEMIDE 20 MG/2 ML VIAL (J1940) IV SCH (09:00)
[2019-03-02] MEDS: VITAMIN D 1,000 INTERNATIONAL UNITS TABLET PO SCH (09:15)
[2019-03-02] MEDS: MAGNESIUM OXIDE 400 MG TAB (MAG-OX) PO SCH (09:15)
[2019-03-02] MEDS: ASPIRIN 81 MG ENTERIC TAB PO SCH (09:15)
[2019-03-02] MEDS: ENOXAPARIN 30 MG/0.3 ML SYR (J1650) SC SCH (09:15)
[2019-03-02] MEDS: metOLazone 2.5 MG TAB PO SCH (09:15)
[2019-03-02] MEDS: POTASSIUM CHLORIDE 10 MEQ PO SCH (09:17)
[2019-03-02] MEDS ORDERED: FUROSEMIDE 40 MG/4 ML VIAL (J1940) IV SCH (09:30)
[2019-03-02] MEDS ORDERED: FUROSEMIDE 40 MG/4 ML VIAL (J1940) IV ONE (11:30)
--- NOTE | 2019-03-02 11:34 | IPN ---
DATE OF SERVICE: The patient was seen and examined this morning during bedside rounds. The patient reports his breathing is a relatively unchanged. He continues to have some episodes of shortness of breath with exertion, but denies any chest pain. He has not had any increasing cough or wheezing that he has noticed. No fevers or chills. He does continue to have some increased lower extremity edema. The patient was given Lasix 20 mg IV yesterday and he has been continued on dobutamine still at 4 mcg/kg/min. PHYSICAL EXAMINATION: Temperature 98.7, pulse 58, respirations 20, blood pressure 98/54, O2 sat 93% on BiPap. In 904, out 1025 mL. General: The patient is awake and alert, is oriented times three. He is able to speak in complete sentences, but does use some accessory muscles for respiration. HEENT: Normocephalic, atraumatic. Pupils reactive to light. Moist mucous membranes. Neck is supple. There is positive jugular venous distention (JVD.) Cardiac: Distant heart sounds. Normal S1, S2. Regular rate and rhythm. Unable to appreciate any murmurs. Pulmonary: Decreased breath sounds at the bases with some crackles, more on the right side than on the left. No significant wheezing or rhonchi. Abdomen is soft, nontender, nondistended. No masses palpated. Extremities: There is increase in the bilateral pitting edema, +2 to 3, in the lower extremities. The patient has severe kyphoscoliosis. LABORATORY DATA: WBC none today. Chemistry for today though is sodium 135, potassium 4.9, chloride 89, bicarb 43, BUN 59, creatinine 1.04, glucose 93, magnesium 2.5. ASSESSMENT/PLAN: Mr. Flores is a 74 old male with a past medical history of congestive heart failure (CHF) with reduced ejection fraction (EF) and automatic implantable cardioverter defibrillator (AICD), history of coronary artery disease (CAD), history of chronic hypercarbic respiratory failure secondary to severe kyphoscoliosis from polio with restrictive lung disease as well, on BiPap at home, history of prostate cancer status post radiation, and chronic thrombocytopenia who presented with increased shortness of breath and lower extremity edema. The patient on admission was found to have elevated lactic acid thought to be due to cardiogenic shock secondary to his severe cardiomyopathy. The patient was started on dobutamine for inotropic support with improvement in his lactic acid. The patient's repeat echocardiogram does show progression and further reduction in his ejection fraction as well as evidence of biventricular heart failure with reduced function in the right ventricle now and evidence of pulmonary hypertension, which is likely group II secondary to severe left sided heart disease. The patient did have elevated central venous pressure (CVP) on his echo and he does have increased lower extremity edema. He has previously had issues with alkalosis with diuresis as well as becoming overly intravascularly depleted. He was given Lasix 20 mg IV yesterday and continued on his metolazone, but he was not significantly net negative yesterday. - Will increase him to Lasix 40 mg IV and continue his metolazone and monitor his ins and outs closely. - Continue with dobutamine as per cardiology. The patient does appear to be requiring inotropic PICC support for the progression of his severe left ventricular heart failure. He has had difficulty as an outpatient with medical management optimizing of his chronic left ventricle heart failure due to hypotension. I did discuss the prognosis and options with the patient such as chronic inotropic support with an infusion pump as an outpatient. He will discuss this with cardiology. - Continue to rate control medications as per cardiology. - Continue to monitor electrolytes and replete as needed. - Continue with his home BiPap at 20/10 at night and with naps. - The patient had a CTA on admission which showed a possible nonocclusive pulmonary embolism in his right middle and right lower lobe segmental bronchi. His lower extremity duplex was negative for deep vein thrombosis (DVT). Given the questionable appearance of thrombus on CT as well as his thrombocytopenia, the decision was made to hold for full-dose anticoagulation, but continue to monitor him clinically. - Continue with aspirin and DVT prophylaxis. Would hold Lovenox if his platelet counts drop below 50,000. CODE STATUS: DNR with a trial of intubation. Palliative care has been consulted. Appreciate their recommendations and evaluation of the patient.
--- NOTE | 2019-03-02 13:15 | IPNPDOC ---
Text Note Date of Service The patient was seen on 03/02/19. NOTE Subjective: No any acute events overnight. Patient denies fever, chills, nausea, vomiting, palpitations, diarrhea or dysuria Objective: GENERAL APPEARANCE: Well-nourished, well-developed, not in apparent distress HEENT: Normocephalic, atraumatic, mucous members moist and pink CARDIOVASCULAR: Regular rate and rhythm. No murmurs, rubs or gallops LUNGS: Lungs clear to auscultation, diminished lung sounds bilaterally ABDOMEN: Not distended, soft and nontender on palpation MUSCULOSKELETAL: Severe kyphoscoliosis NEUROLOGICAL: Cranial nerves II 12 are grossly intact. Speech is not dysarthric PSYCHIATRIC: Alert and oriented to person, place and time Patient is 74 years old male with past medical history of combined systolic and diastolic CHF presented hospital with increased shortness of breath and lower extremity edema. Also patient had decreased urine output on diuretics. Dr. Adams consulted patient and recommended to continue diuresis and dobutamine drip with digoxin loading. Acute on chronic systolic CHF Ejection fraction 20-25% continue with dobutamine as per cardiology and rate-control medications Continue gentle diuresis in light of recent contraction alkalosis Continue load with digoxin as per cardiology team Pulmonary emboli CTA positive for nonocclusive pulmonary emboli, d-dimer elevated over 1999. [employer] Dr. Olguin consulted patient and she does not recommend anticoagulation in the light of thrombocytopenia. Patient is not hypoxic, pulmonary emboli is nonobstructive. Doppler ultrasound negative for DVT Right Pleural Effusion Could be multifactorial and attributed to CHF exacerbation and obstructive effusion secondary to severe kyphoscoliosis Follow clinically Thrombocytopenia Chronic Most likely due to myelosuppression due to multiple chronic diseases Hyponatremia Secondary to CHF Resolved Chronic respiratory failure Continue treatment with BiPAP, settings has been adjusted Chronic CAD. Plan: Continue home meds Elevated troponin Most likely secondary to demand ischemia Troponin trended down. Patient denies chest pain EKG negative for acute ischemic changes Deconditioning PT/OT Palliative care Prognosis guarded. VS,Fishbone, I+O VS, Fishbone, I+O Laboratory Tests 03/02/19 04:41 Vital Signs Date Time Temp Pulse Resp B/P (MAP) Pulse Ox O2 Delivery O2 Flow Rate FiO2 03/02/19 09:00 50 03/02/19 08:00 98.6 18 107/61 (76) 96 Room Air I&O- Last 24 Hours up to 6 AM 03/02/19 05:59 Intake Total 754 ml Output Total 900 ml Balance -146 ml ROXANA NAQVI DO Mar 02, 2019 13:15
[2019-03-02] MEDS: CETIRIZINE (ZyrTEC) 10 MG TAB PO SCH (20:00)
[2019-03-02] MEDS: PRAVASTATIN 10 MG TAB PO SCH (20:00)
[2019-03-03 00:32] VITALS: BP 116/55
[2019-03-03 04:00] VITALS: BP 100/52
[2019-03-03] MEDS: DOBUTamine HCL 500,000 MCG in IV 1 EA IV SCH (05:59)
--- NOTE | 2019-03-03 06:35 | IPNPDOC ---
Text Note Date of Service The patient was seen on 03/03/19. NOTE Subjective: No any acute events overnight. ROS is negative for fever, chills, nausea, vomiting, palpitations, diarrhea or dysuria Objective: GENERAL APPEARANCE: NAD, well developed and nourished HEENT: Normocephalic, atraumatic, MMM CARDIOVASCULAR: RRR, no mrg LUNGS: Diminished lung sounds bilaterally at bases with good air movement towards the apices, no ignacio crackles or wheezing ABDOMEN: Normoactive bowel sounds, soft, NTND MUSCULOSKELETAL: Marked kyphoscoliosis NEUROLOGICAL: Cranial nerves 2 through 12 are grossly intact, normal clear speech, moving all extremities equally in bed, gait not assessed PSYCHIATRIC: AOx3, normal affect I/Os: Reviewed - running roughly net even. Labs: BMP reviewed - stable normal Cr, K and Mg within normal range Meds: reviewed: Most importantly remains on dobutamine assisted diuresis with lasix and metolazone, with ongoing digoxin loading. Decision was made to not anticoagulate despite the PEs in the setting of thrombocytopenia, therefore remains on prophylaxis dosing lovenox. 74 years old man with combined systolic and diastolic CHF who presented to the hospital with worsening shortness of breath and lower extremity edema with associated decreased urine output on his baseline diuretics, and found to be in decompensated HF and with incidentally noted non occlussive PEs now on dobutamine assisted diuresis with ongoing digoxin loading with cardiology onboard and decision made not to anticoagulate given thrombocytopenic state. Acute on chronic systolic an diastolic CHF -Ejection fraction 20-25% -continue with dobutamine as per cardiology and rate-control medications of coreg and digoxin -Continue gentle diuresis in light of recent contraction alkalosis with lasix 20 IV daily and metolazone 2.5 QD -Continue load with digoxin as per cardiology team Pulmonary emboli -CTA positive for nonocclusive pulmonary emboli, d-dimer elevated over 1999. [employer] Dr. Olguin consulted patient and she does not recommend antico agulation in the light of thrombocytopenia. Patient is not hypoxic, pulmonary emboli is nonobstructive. -Doppler ultrasound negative for DVT Right Pleural Effusion -Could be multifactorial and attributed to CHF exacerbation and obstructive effusion secondary to severe kyphoscoliosis -Follow clinically Thrombocytopenia -Chronic -Most likely due to myelosuppression due to multiple chronic diseases Hyponatremia -Secondary to CHF -Resolved Chronic respiratory failure -Continue treatment with BiPAP Chronic CAD. Plan: Continue home meds ASA, pravastatin Elevated troponin -Most likely secondary to demand ischemia -Troponin trended down. -Patient denies chest pain -EKG negative for acute ischemic changes Deconditioning PT/OT Consults: -Cardiology -Palliative care Prognosis guarded VS,Fishbone, I+O VS, Fishbone, I+O Vital Signs Date Time Temp Pulse Resp B/P (MAP) Pulse Ox O2 Delivery O2 Flow Rate FiO2 03/03/19 04:00 97.9 52 20 100/52 (68) 96 Room Air I&O- Last 24 Hours up to 6 AM 03/03/19 06:00 Intake Total 894 ml Output Total 625 ml Balance 269 ml MUSA ORTA MD Mar 03, 2019 06:35
[2019-03-03 08:00] VITALS: BP 89/53
[2019-03-03] MEDS: MAGNESIUM OXIDE 400 MG TAB (MAG-OX) PO SCH (09:00)
[2019-03-03 09:54] VITALS: BP 94/50
[2019-03-03] MEDS: CARVedilol 3.125 MG TAB PO SCH (09:54)
[2019-03-03] MEDS: ASPIRIN 81 MG ENTERIC TAB PO SCH (09:54)
[2019-03-03] MEDS: DIGOXIN 0.125 MG TAB PO SCH (09:55)
[2019-03-03] MEDS: VITAMIN D 1,000 INTERNATIONAL UNITS TABLET PO SCH (09:56)
[2019-03-03] MEDS: ENOXAPARIN 30 MG/0.3 ML SYR (J1650) SC SCH (09:57)
[2019-03-03] MEDS: metOLazone 2.5 MG TAB PO SCH (09:57)
[2019-03-03] MEDS: FUROSEMIDE 20 MG/2 ML VIAL (J1940) IV SCH (09:58)
[2019-03-03] MEDS: POTASSIUM CHLORIDE 10 MEQ PO SCH (09:58)
[2019-03-03 11:01] LABS: HEMATOCRIT 54.5 % (42.0-52.0); HEMOGLOBIN 17.3 g/dl (13.5-17.5); MEAN CORPUSCULAR HEMOGLOBIN 34.3 pg (27.0-33.0); MEAN CORPUSCULAR HGB CONC 31.7 g/dl (32.0-36.5); MEAN CORPUSCULAR VOLUME 107.9 fl (80.0-96.0); RED BLOOD COUNT 5.05 10^6/uL (4.30-6.10); WHITE BLOOD COUNT 4.6 10^3/uL (4.0-10.0)
[2019-03-03 11:04] LABS: PLATELET COUNT, AUTOMATED 70 10^3/uL (150-450)
[2019-03-03 11:23] LABS: BLOOD UREA NITROGEN 56 MG/DL (7-18); CALCIUM LEVEL 8.7 MG/DL (8.8-10.2); CARBON DIOXIDE LEVEL 40 MEQ/L (21-32); CHLORIDE LEVEL 90 MEQ/L (98-107); CREATININE FOR GFR 1.05 MG/DL (0.70-1.30); GLOMERULAR FILTRATION RATE > 60.0 (>42); GLUCOSE, FASTING 136 MG/DL (70-100); POTASSIUM SERUM 3.9 MEQ/L (3.5-5.1); SODIUM LEVEL 136 MEQ/L (136-145)
[2019-03-03 12:00] VITALS: BP 100/75
[2019-03-03 16:00] VITALS: BP 103/58
--- NOTE | 2019-03-03 17:13 | DS.PDOC ---
Discharge Summary General Date of Admission Feb 26, 2019 at 19:22 Date of Discharge 03/03/2019 Attending Physician: MUSA ORTA MD Specialist/Consultants Involve: NENITA KISER MD Discharge Summary PROCEDURES PERFORMED DURING STAY: None ADMITTING DIAGNOSES: 1. CHF DISCHARGE DIAGNOSES: 1. Decompensated systolic and diastolic heart failure 2. [place] 3. 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 4. CAD status post [place] 5. TAPAN on BiPAP 6. Osteoporosis 7. Chronic thrombocytopenia COMPLICATIONS/CHIEF COMPLAINT: Shortness Of Breath. HISTORY OF PRESENT ILLNESS: 74-year-old man with a long standing history of NICM and multiple hospitalizations with heart failure who recently saw his digester operator helper in the outpatient setting for shortness of breath and was recommended his choir director Dr. Kiser who attempted outpatient uptitration of diuretics but did not respond and follow up labs on 02/26/2019 revealed a prerenal azotemia and hypokalemia with markedly elevated serum BNP and thrombocytopenia and therefore referred to the ED for admission of worsening decompensated heart failure. HOSPITAL COURSE: Mr. 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 At presentation, initial studies were notable for BNP >13,000, an EKG with SVT w a HR of 108 and no acute ischemic changes, and hypoxemia with hypercarbia. Cardiology was consulted in the ED and was recommended for admission to the ICU with plan for inotropic assisted diuresis with dobutamine as well as continuous BiPAP. His hospital course by issue was as detailed below: Heart failure: Acute on chronic, secondary to left ventricular systolic dysfunction due to nonischemic cardiomyopathy, as well as asymptomatic moderate coronary artery disease. Per Dr. Kiser, Mr. Flores has not been able to receive medically guided therapy for his left ventricular systolic dysfunction in view of the side effects to RITIKA inhibitor and Entresto. He was maintained on a small dose of beta-keyshawn and spirolactone and had been more frequently recently for heart failure. During this admission, he reported some dietary noncompliance and on exam was noted to be wet and cold and thus started on dobutamine, continued on lasix diuresis and loaded with digoxin with the goal of decreasing the risk for hospitalization from heart failure according to the dig trial, while continuing low dose cored. He is now being discharged for transfer to [facility] after Dr. Kiser's discussion with cardiology at [facility] about his prognosis and likely plan for home inotropes. At discharge, he continued on dobutamine, lasix 20 IV daily with metolazone 2.5mg daily in light of his recent contraction alkalosis. Pulmonary emboli: Mr. Flores was noted to have an elevated d-dimer to >2000 at presentation and had a CTA with PE protocol that was positive for nonocclusive pulmonary emboli. While in the ICU, pulmonology was consulted and after discussion with Dr. Olguin (pulmonology), she did not recommend anticoagulation in light of his thrombocytopenia. He also had bilateral lower extremity doppler ultrasound that were negative for DVTs. Right Pleural Effusion: His effusion was noted on CT and felt to be multifactorial and attributed to CHF exacerbation and obstructive effusion secondary to severe kyphoscoliosis and was monitored clinically. Thrombocytopenia: Mr. Flores has long standing chronic thrombocytopenia that was stable this admission. Hyponatremia: On admission, he had significant hyponatremia secondary to CHF that resolved with inotropic assisted diuresis Chronic hypercarbic hypoxemic respiratory failure: Continued treatment with BiPAP at home settings. Chronic CAD: Continued home meds ASA, pravastatin Elevated troponin: Was lower than prior admission. [place], most likely secondary to demand ischemia. He had no episodes of chest pain or palpitations throughout his admission. his EKG did not have acute ischemic changes and the troponin downtrended. ALLERGIES: Please see below. PHYSICAL EXAMINATION ON DISCHARGE: GENERAL APPEARANCE: NAD, well developed and nourished HEENT: Normocephalic, atraumatic, MMM CARDIOVASCULAR: RRR, no mrg LUNGS: Diminished lung sounds bilaterally at bases with good air movement towards the apices, no ignacio crackles or wheezing ABDOMEN: Normoactive bowel sounds, soft, NTND MUSCULOSKELETAL: Marked kyphoscoliosis NEUROLOGICAL: Cranial nerves 2 through 12 are grossly intact, normal clear sp eech, moving all extremities equally in bed, gait not assessed PSYCHIATRIC: AOx3, normal affect LABORATORY DATA: Please see below. IMAGIN/25: CTA: 1. Pulmonary emboli in the right middle and lower lobes. 2. Bibasilar consolidation may be due to atelectasis or pneumonia. Also consider possibility of aspiration. 3. Ascending thoracic aortic aneurysm. 4. Bilateral pleural effusions. 02/27: Bilateral LE doppler venous ultrasound: There is no ultrasonographic evidence of deep venous thrombosis involving any of the visualized deep venous structures of the bilateral thigh, as described above. 02/28: TTE Echocardiogram showed ejection fraction (EF) of 10-15%, with severe hypokinesis and paradoxical septal wall motion. There is mild mitral regurgitation. Severe tricuspid valve regurgitation. There is moderate pulmonary hypertension with an right ventricular (RV) systolic pressure 55 mmHg. There is moderately reduced function of the right ventricle with hypokinesis. Inferior vena cava (IVC) is dilated with an estimated central venous pressure (CVP) of 20. PROGNOSIS: Poor, guarded ACTIVITY: As tolerated DIET: 2g salt restriction, DISCHARGE PLAN: Transferring to [facility] cardiology DISPOSITION: Transferring to [facility] cardiology service DISCHARGE INSTRUCTIONS: 1. Per [facility] cardiology ITEMS TO FOLLOWUP ON ON OUTPATIENT: 1. Decompensated systolic and diastolic heart failure 2. 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 3. CAD status post [place] 4. TAPAN on BiPAP 5. Thrombocytopenia DISCHARGE CONDITION: Stable TIME SPENT ON DISCHARGE: Greater than 30 minutes. Vital Signs/I&Os Vital Signs Date Time Temp Pulse Resp B/P (MAP) Pulse Ox O2 Delivery O2 Flow Rate FiO2 03/03/19 13:30 NIPPV (BIPAP/CPAP) 03/03/19 12:00 98.0 57 24 100/75 (83) 93 I&O- Last 24 Hours up to 6 AM 03/03/19 06:00 Intake Total 930 ml Output Total 625 ml Balance 305 ml Laboratory Data Labs 24H Laboratory Tests 2 03/03/19 04:59: Magnesium Level 2.7H 03/03/19 10:48: Nucleated Red Blood Cells % (auto) 0.0, Immature Platelet Fraction 17.0H, Anion Gap 6L, Glomerular Filtration Rate > 60.0, Calcium Level 8.7L CBC/BMP Laboratory Tests 03/03/19 10:48 Discharge Medications Scheduled Aspirin (Aspir 81) 81 Mg Tablet.dr, 81 MG PO DAILY, (Reported) Calcium Carb/Vitamin D3/Vit K1 (Viactiv 650 mg-12.5 Mcg Chew) 1 Each Tab.chew, 1 EACH PO DAILY, (Reported) Carvedilol (Carvedilol) 3.125 Mg Tablet, 0.5 TAB PO BID, (Reported) take if SBP > 95 Cetirizine HCl (Cetirizine HCl) 10 Mg Tablet, 10 MG PO QHS, (Reported) Cholecalciferol (Vitamin D3) (Vitamin D3) 1,000 Unit Tablet, 2,000 UNIT PO DAILY, (Reported) Lactose-Reduced Food (Ensure Active High Protein) 414 Ml Liquid, 1 LIQ PO DAILY, (Reported) Magnesium Oxide (Magnesium Oxide) 400 Mg Tablet, 400 MG PO DAILY, (Reported) Pravastatin Sodium (Pravastatin Sodium) 10 Mg Tab, 10 MG PO QHS, (Reported) Scheduled PRN Aspirin/Caffeine (Anacin 400-32 mg Tablet) 1 Each Tablet, 2 TAB PO DAILY PRN for ARTHRITIS PAIN, (Reported) Allergies Coded Allergies: Penicillins (Verified Allergy, Intermediate, hives, 10/02/18) latex (Verified Allergy, Intermediate, rash , 10/02/18) MUSA ORTA MD Mar 03, 2019 16:59
== END 2019-03-03 18:53 | disposition short-term general hospital (02) | DRG 291 ==
LOC: M ED 16:35 → M ED INP 19:22 → M ICU 20:46
PROVIDERS: ADMIT Internal Medicine; ATTEND Internal Medicine
DX: I50.43 Acute on chronic combined systolic (congestive) and diastolic (congestive) heart failure (principal); I26.99 Other pulmonary embolism without acute cor pulmonale; J96.12 Chronic respiratory failure with hypercapnia; E87.3 Alkalosis; N17.9 Acute kidney failure, unspecified; E87.1 Hypo-osmolality and hyponatremia; I25.10 Atherosclerotic heart disease of native coronary artery without angina pectoris; I25.2 Old myocardial infarction; D69.6 Thrombocytopenia, unspecified; G47.33 Obstructive sleep apnea (adult) (pediatric); M81.0 Age-related osteoporosis without current pathological fracture; M41.9 Scoliosis, unspecified; B91 Sequelae of poliomyelitis; I25.5 Ischemic cardiomyopathy; Z79.899 Other long term (current) drug therapy; Z79.82 Long term (current) use of aspirin; Z88.0 Allergy status to penicillin; Z91.040 Latex allergy status; M21.371 Foot drop, right foot; M21.372 Foot drop, left foot; Z87.891 Personal history of nicotine dependence; D75.1 Secondary polycythemia; E78.5 Hyperlipidemia, unspecified; Z95.0 Presence of cardiac pacemaker

== ENCOUNTER → 2019-03-18 | Outpatient (REF) | payer MEDICARE, OTHER ==
[~2019-03-18] MED LIST changes: +MAG400TA PO; +POTA10CA32 PO; +VIAC1CHW PO
[2019-03-18 18:34] LABS: MEAN CORPUSCULAR HEMOGLOBIN 33.1 pg (27.0-33.0); MEAN CORPUSCULAR HGB CONC 31.1 g/dl (32.0-36.5); MEAN CORPUSCULAR VOLUME 106.4 fl (80.0-96.0); PLATELET COUNT, AUTOMATED 239 10^3/uL (150-450); RED BLOOD COUNT 4.23 10^6/uL (4.30-6.10); WHITE BLOOD COUNT 5.1 10^3/uL (4.0-10.0)
[2019-03-18 18:54] LABS: ALBUMIN 3.2 GM/DL (3.2-5.2); ALT/SGPT 36 U/L (12-78); BLOOD UREA NITROGEN 46 MG/DL (7-18); CALCIUM LEVEL 9.6 MG/DL (8.8-10.2); CARBON DIOXIDE LEVEL 42 MEQ/L (21-32); CHLORIDE LEVEL 93 MEQ/L (98-107); CREATININE FOR GFR 0.65 MG/DL (0.70-1.30); GLOMERULAR FILTRATION RATE > 60.0 (>42); GLUCOSE, FASTING 78 MG/DL (70-100); MAGNESIUM LEVEL 2.2 MG/DL (1.8-2.4); NT-PRO BNP 12720 PG/ML (<125); POTASSIUM SERUM 4.7 MEQ/L (3.5-5.1); SODIUM LEVEL 138 MEQ/L (136-145); TOTAL PROTEIN 6.2 GM/DL (6.4-8.2)
== END ==
LOC: M SHH 09:23
PROVIDERS: ATTEND Nurse Practitioner
DX: I50.43 Acute on chronic combined systolic (congestive) and diastolic (congestive) heart failure (principal)

== ENCOUNTER → 2019-03-23 | Outpatient (REF) | payer MEDICARE, OTHER ==
[2019-03-23 17:17] LABS: HEMATOCRIT 44.8 % (42.0-52.0); MEAN CORPUSCULAR HEMOGLOBIN 33.5 pg (27.0-33.0); MEAN CORPUSCULAR HGB CONC 31.3 g/dl (32.0-36.5); MEAN CORPUSCULAR VOLUME 107.2 fl (80.0-96.0); PLATELET COUNT, AUTOMATED 274 10^3/uL (150-450); RED BLOOD COUNT 4.18 10^6/uL (4.30-6.10); WHITE BLOOD COUNT 6.2 10^3/uL (4.0-10.0)
[2019-03-23 18:17] LABS: ALBUMIN 3.3 GM/DL (3.2-5.2); ALT/SGPT 40 U/L (12-78); BLOOD UREA NITROGEN 39 MG/DL (7-18); CARBON DIOXIDE LEVEL 32 MEQ/L (21-32); CHLORIDE LEVEL 94 MEQ/L (98-107); CREATININE FOR GFR 0.63 MG/DL (0.70-1.30); GLOMERULAR FILTRATION RATE > 60.0 (>42); GLUCOSE, FASTING 91 MG/DL (70-100); MAGNESIUM LEVEL 2.1 MG/DL (1.8-2.4); NT-PRO BNP 10653 PG/ML (<125); POTASSIUM SERUM 5.4 MEQ/L (3.5-5.1); SODIUM LEVEL 135 MEQ/L (136-145); TOTAL PROTEIN 6.6 GM/DL (6.4-8.2)
== END ==
LOC: M SHH 16:30
PROVIDERS: ATTEND Nurse Practitioner
DX: I50.43 Acute on chronic combined systolic (congestive) and diastolic (congestive) heart failure (principal)

== ENCOUNTER 2019-03-26 14:44 | Inpatient (IN) | payer MEDICARE, OTHER ==
[~2019-03-26] VITALS: Ht 154.9 cm; Wt 51.4 kg
[2019-03-26] MEDS ORDERED: TORS20TA2 PO (15:11)
[2019-03-26] MEDS ORDERED: DIGO0.12 PO (15:11)
[2019-03-26 15:16] LABS: BASO # 0.1 10^3/uL (0.0-0.2); BASO % 1.1 % (0.0-1.0); EOS # 0.1 10^3/uL (0.0-0.5); EOS % 1.1 % (0.0-3.0); HEMATOCRIT 46.7 % (42.0-52.0); HEMOGLOBIN 14.8 g/dl (13.5-17.5); LYMPH # 0.8 10^3/uL (1.5-5.0); MEAN CORPUSCULAR HEMOGLOBIN 33.6 pg (27.0-33.0); MEAN CORPUSCULAR HGB CONC 31.7 g/dl (32.0-36.5); MEAN CORPUSCULAR VOLUME 106.1 fl (80.0-96.0); MONO # 0.7 10^3/uL (0.0-0.8); NEUTROPHILS # 3.7 10^3/uL (1.5-8.5); NEUTROPHILS % 69.2 % (36.0-66.0); PLATELET COUNT, AUTOMATED 225 10^3/uL (150-450); WHITE BLOOD COUNT 5.4 10^3/uL (4.0-10.0)
[2019-03-26] MEDS ORDERED: K-TA10TA2 PO (15:16)
[2019-03-26] MEDS ORDERED: [UNRECOGNIZED DRUG - CODE] IV (15:16)
--- NOTE | 2019-03-26 15:23 | REP ---
CT brain: 03/26/2019. Indication: Vertigo. Comparison: 12/30/2015. Technique: Unenhanced axial CT images of the brain were obtained from skull base to vertex. Findings: There is no acute intracranial hemorrhage, acute cortical infarction, mass effect, hydrocephalus or acute calvarial fracture. Diffuse volume loss is present. Patchy areas of cerebral hemisphere white matter hypoattenuation are noted most consistent with mild chronic small vessel disease. There is no significant fluid within the visualized paranasal sinuses/mastoid air cells. Impression: No acute intracranial process. Diffuse volume loss and mild sequelae of chronic microangiopathic ischemic disease. Electronically Signed by Laurent Barry DO 03/26/2019 03:15 P
--- NOTE | 2019-03-26 15:34 | REP ---
Portable chest x-ray: Single view. History: Chest pain. Comparison study: February 26, 2019. Findings: There is a severe dextroconvex thoracic scoliotic curve. A right-sided central venous tunnel catheter is seen in the expected location of the superior vena cava. A unipolar pacemaker is seen in the right heart via the left side as before. Moderate cardiac enlargement is again observed. No definite infiltrate is seen in the lung clancy. No evidence of pleural effusion or pulmonary edema. Impression: Severe scoliosis. Cardiomegaly with pacemaker. Central venous tunnel catheter in place. No evidence of pleural effusion or pulmonary edema. Electronically Signed by Don Ramirez MD 03/26/2019 03:25 P
[2019-03-26 15:46] LABS: ALBUMIN 3.7 GM/DL (3.2-5.2); ALT/SGPT 35 U/L (12-78); BILIRUBIN,DIRECT 0.4 MG/DL (0.0-0.2); BILIRUBIN,TOTAL 0.9 MG/DL (0.2-1.0); BLOOD UREA NITROGEN 30 MG/DL (7-18); C REACTIVE PROTEIN QUANTITATIV 0.69 MG/DL (0.00-0.30); CALCIUM LEVEL 9.4 MG/DL (8.8-10.2); CARBON DIOXIDE LEVEL 32 MEQ/L (21-32); CHLORIDE LEVEL 97 MEQ/L (98-107); CK-MB VALUE MASS 9.7 NG/ML (<3.6); CPK CREATINE PHOSPHOKINASE 59 U/L (39-308); CREATININE FOR GFR 0.58 MG/DL (0.70-1.30); DIGOXIN LEVEL 0.5 NG/ML (0.5-2.0); GLOMERULAR FILTRATION RATE > 60.0 (>42); GLUCOSE, FASTING 119 MG/DL (70-100); LIPASE 202 U/L (73-393); MB/CK RELATIVE INDEX 16.44 (< OR =4); NT-PRO BNP 10462 PG/ML (<125); POTASSIUM SERUM 4.1 MEQ/L (3.5-5.1); SODIUM LEVEL 137 MEQ/L (136-145); TOTAL PROTEIN 6.9 GM/DL (6.4-8.2); TROPONIN I 0.86 NG/ML (< 0.10)
[2019-03-26 15:59] LABS: PARTIAL THROMBOPLASTIN TIME 24.6 SECONDS (25.0-38.4)
[2019-03-26 16:01] LABS: INR 0.94; PROTHROMBIN TIME 12.3 SECONDS (11.8-14.0)
[2019-03-26] MEDS ORDERED: ASPIRIN 325 MG TAB PO ONE (17:15)
[2019-03-26] MEDS ORDERED: DIGOXIN 0.125 MG TAB PO ONE (17:15)
[2019-03-26] MEDS ORDERED: [UNRECOGNIZED DRUG - CODE] IV (17:34)
[2019-03-26] MEDS ORDERED: POTA10TA17 PO (17:34)
[2019-03-26 18:45] VITALS: BP 99/54
[2019-03-26] MEDS ORDERED: MILRINONE IV SCH (19:00)
[2019-03-26 20:00] VITALS: BP 90/52
[2019-03-26] MEDS: POTASSIUM CHLORIDE 10 MEQ SR TABLET PO SCH (21:00)
[2019-03-26] MEDS ORDERED: SODIUM CHLORIDE 0.9% INJ 10 ML SYR IV PRN (21:15)
[2019-03-26 21:39] LABS: CK-MB VALUE MASS 7.4 NG/ML (<3.6); MB/CK RELATIVE INDEX 17.62 (< OR =4)
[2019-03-26] MEDS: PRAVASTATIN 10 MG TAB PO SCH (21:56)
[2019-03-26] MEDS: CETIRIZINE (ZyrTEC) 10 MG TAB PO SCH (21:56)
--- NOTE | 2019-03-26 21:56 | HPE ---
DATE OF ADMISSION: 03/26/2019 PRIMARY CARE PROVIDER: Dr. Shiela Shi CHIEF COMPLAINT: Right-sided face and arm tingling. HISTORY OF PRESENT ILLNESS: This is a 74-year-old male with a past medical history significant for end-stage congestive heart failure, on milrinone drip, who was recently discharged from [facility], who was playing solitaire in his home office on the computer around 1:45 and suddenly felt his "head swimming sideways." He states that he felt lightheaded and thought he was going to pass out. Because he was feeling so weak, he leaned back and then realized he could not lean forward. His right arm and hand were tingling as well as the right side of his face and mouth. At this time, he also had right ear numbness. He called out to his , "I think I'm having a stroke." He noticed his speech was slurred at this point, and he started seeing double. He also had right ear tinnitus. He noticed that he could not move his eyes from right to left. When emergency medical services (EMS) arrived and started transferring him to the ambulance, he vomited once and then started to feel better. His symptoms lasted for less than an hour and subsequently completely resolved. The only symptom that he has currently is a mild headache. The emergency department physician, Dr. Dempsey, spoke with [facility]. The patient was discharged home on 03/17/2019 on milrinone drip. His pro-BNP was elevated in the emergency department, however, it was actually improved from the last one done at [facility]. The case was discussed with the cardiology attending at [facility], and the patient was given full-dose aspirin in the emergency department PAST MEDICAL HISTORY: Prostate cancer, status post radiation with Dr. 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 End-stage congestive heart failure with an ejection fraction of 24-25% with automatic implantable cardioverter defibrillator (AICD), recently discharged from [facility] in [place] on a milrinone drip, follows locally with Dr. Roc. Dawson in 1950. 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 Sears. Itchy skin for which he sees [facility] Nurse Practitioners. Hyperlipidemia. Osteoporosis for which he sees Dr. Edwige Schultz and is on Prolia every 6 months. History of TIA in 2016. SURGERIES: 1. Wrist surgery. 2. Small bowel resection. 3. Back surgery as a child. FAMILY HISTORY: Noncontributory. MEDICATIONS: - Tylenol 650 mg two tablets by mouth daily - aspirin 81 mg by mouth daily - cetirizine 10 mg by mouth daily at bedtime - cholecalciferol 2000 units by mouth daily - magnesium oxide 400 mg by mouth daily - pravastatin 10 mg by mouth daily at bedtime - torsemide 40 mg twice a day (started today) - digoxin 0.125 mg every 48 hours (today's dose given by Dr. Dempsey in the emergency department) - milrinone drip concentrated at 200 mcg per mL, dosing at 0.5 mcg/kg per minute, 28.6 mcg per minute via peripherally inserted central catheter (PICC) line - potassium chloride 40 mEq daily - normal saline flushes and heparin flushes - multivitamin ALLERGIES: PENICILLIN and LASIX. SOCIAL HISTORY: No bad habits. He used to be a smoker but quit. He has a drink of alcohol occasionally. Lives at home with his . REVIEW OF SYSTEMS: Constitutional: Denies any weight loss, day sweats, weight gain, fatigue, fevers, chills or rigors. Eyes: Positive for double vision that has resolved, denies any eye pain, floaters or feeling like a curtain got pulled down. Ear, nose, throat and mouth: Denies epistaxis, runny nose, sinus pain, gingival bleeding, sore throat, odynophagia. Positive for right-sided tinnitus. Cardiovascular: Denies chest pain, palpitations, claudication or recent loss of consciousness. Positive for chronic orthopnea. Respiratory: Denies cough, sputum production, wheezing, hemoptysis. Has chronic shortness of breath and obstructive sleep apnea (TAPAN), on continuous positive airway pressure (CPAP) for his restrictive lung disease. Gastrointestinal (GI): Positive for one episode of nausea and emesis without hematemesis. Denies abdominal pain, diarrhea, obstipation, hematochezia, melena, bright red blood per rectum or tenesmus. Genitourinary: Denies incontinence, urinary retention, hesitancy or polyuria. Musculoskeletal: Positive for chronic weakness secondary to polio. Denies any new decreasing range of motion, crepitus or arthritis/stiffness. Integumentary: Denies any new rashes, lesions, wounds or incisions. Positive for chronic pruritus for which he is on cetirizine. Neurological: Denies any changes to smell, hearing or taste. Positive for headache, double vision, right-sided facial and upper extremity paresthesias and numbness as described above. Denies any urinary or bowel incontinence. Positive for slurred speech as above. Psychiatric: Denies any new onset depression, anxiety, paranoia, anhedonia or episodes of marcela. Endocrine: Positive for history of osteoporosis. Denies any new sweats, diarrhea, tremor, palpitations, constipation, dry skin, polydipsia or polyuria. Hematologic: Denies any anemia, purpura, petechiae. Lymphatic: Denies any new lumps or bumps anywhere. PHYSICAL EXAMINATION: Vital signs: Pulse 85, blood pressure 102/62, 94% on room air. General: This is a pleasant elderly male laying in the stretcher in the emergency department. He is in no acute distress. HEENT: Atraumatic, normocephalic. Pupils are equal, round and reactive to light. Extraocular eye movements are intact. There are no lesions in the mouth, patient is Mallampati 3. Tongue is midline. Uvula is midline. There is no facial droop. Neck: Supple, no masses. No jugular venous distention (JVD). Jugular venous pulsations are present at the sternal angle. Chest: There is a port in the right side of the patient's chest. The patient has severe dextroconvex thoracic scoliotic curve. Lungs: Some mildly diminished breath sounds at the bases of the lungs, otherwise clear to auscultation bilaterally without wheezes, rhonchi or rales. Heart: Regular rate and rhythm. No gallops or rubs. There is a faint end systolic murmur heard best at the second intercostal space on the right without radiation into the carotids. Abdomen: Soft, nondistended, nontender to palpation. Positive bowel sounds throughout. Extremities: There is deformity of the first digit in the right hand. He has no clubbing, cyanosis or edema noted. Neurologic: Cranial nerves II-XII grossly intact without any focal deficits. No diminished sensation. Reflexes are absent. Muscle strength is 2/5 in the bilateral lower extremities, 3/5 in upper extremities bilaterally. Cerebellar testing unable to be performed. Psychiatric: Affect is appropriate. LABORATORY DATA: CBC: WBC 5.4, hemoglobin 14.8, hematocrit 46.7, platelets 225. Chemistry: Electrolytes are in balance with a sodium of 137, potassium of 4.1, chloride 97, carbon dioxide 32, anion gap 8, BUN 30 with a creatinine of 0.58, fasting glucose 119, lactic acid 2.3, calcium 9.4, total bilirubin 0.9, direct bilirubin 0.4, lactic acid 2.3, calcium 9.4, total bilirubin 0.9, direct bilirubin 0.4, AST 49, ALT 35, alkaline phosphatase 139, creatinine kinase 59, CK-MB 9.7, troponin 0.86, CRP 0.69, pro-BNP 10,462, total protein 6.9, albumin 3.7, lipase 202, TSH 1.9. Coagulation: PT 12.3, INR 0.94, APTT 24.6. Toxicology: Digoxin 0.5. Microbiology: Blood cultures pending. IMAGING: Chest x-ray done 03/26/2019 shows severe scoliosis, cardiomegaly with pacemaker, central venous tunnel catheter in place on the right with the expected location of the end of it in the superior vena cava. Unipolar pacemaker seen in the right heart via the left side as previously. No evidence of pleural effusion or pulmonary embolism. No definite infiltrate is seen in the lungs. Head CT done 03/26/2019 shows diffuse volume loss and mild sequelae of chronic microangiopathic ischemic disease. No bleeding, acute cortical infarction, mass effect, hydrocephalous or acute calvarial fracture. No acute intracranial process. EKG (with comparison to EKGs done on 02/26/2019) shows sinus rhythm at 83 beats per minute with left axis deviation, first-degree atrioventricular (AV) block, left atrial enlargement, intraventricular conduction delay. Occasional premature ventricular complexes. ASSESSMENT: This is a 74-year-old male who likely suffered from a transient ischemic attack. He will be admitted to progressive care unit (PCU) for observation with telemetry. 1. Possible transient ischemic attack (TIA). Differential would also include complex migraine, however less likely since he has had a previous TIA. Admit to PCU with monitoring on telemetry. ABCD squared score is 4 points, indicating moderate risk for a risk of subsequent stroke. I spoke to the patient's neurologist, Dr. Dove, who he started seeing after his first TIA in December of 2015. Those symptoms had resolved completely. Dr. Dove recommended continuing the patient on 325 mg of aspirin and doing a repeat head CT as the patient's AICD is not compatible with MRI. If the patient is asymptomatic, he can possibly be discharged home tomorrow as long as the CT of the head has not changed. 2. End-stage congestive heart failure, on milrinone drip. Ejection fraction is about 24-25%. We will continue the milrinone, torsemide, and digoxin as scheduled. He will be on aspirin 325 mg daily. We will also get an echocardiogram to rule out intracardiac thrombus as he is at an increased risk of those developing due to his end-stage heart failure. Case was discussed with Dr. Adams who indicated that the AICD may not be compatible with MRI. 3. Elevated troponin, likely chronic secondary to the patient's end-stage heart failure. The EKG was unchanged from prior but had nonspecific finding. We will follow up with serial EKGs and troponins to make sure there is not an increasing trend. Per Dr. Dempsey, he spoke to the attending at [facility] about the patient's pro-BNP, which has actually decreased since his discharge on the from [facility]. If the patient's troponin and EKGs worsen, will most likely start therapeutic heparin. 4. Lactic acidosis, most likely type B secondary to decreased perfusion from the patient's end-stage heart failure. We will repeat a lactic acidosis once to rule out worsening. I do not expect his lactic acidosis to resolve due to likely hepatic congestion, again from his end-stage heart failure. As he on a milrinone drip and his EF is only 24-25%, I would recommend against fluid resuscitation. 5. Hyperlipidemia, continue his home pravastatin. 6. Osteoporosis. Continue vitamin D. 7. Allergic dermatitis. Continue cetirizine. The patient may use his heparin flushes and normal saline flushes for his port and his PICC line. DISPOSITION: Pending repeat head CT in the morning, could be discharged if he does not have any more symptoms. Patient was seen and examined by me with the residents personally. Agree with the above assessment and plan. The patient will be evaluated for TIA workup as the patient has high ABCD [address] scan is done. MRI cannot be done as the patient has AICD which is noncompatible. The patient has been has been escalated to 325 and statin that continued. Carotid Dopplers and 2-D echo will be done to rule out any intracardiac thrombus. Tim Quinteros MD. [facility]
[2019-03-26 22:17] LABS: TROPONIN I 1.04 NG/ML (< 0.10)
[2019-03-26 23:59] VITALS: BP 91/55
[2019-03-27] MEDS: LIDOCAINE 5% (LIDODERM) PATCH TD SCH (03:51)
[2019-03-27 04:00] VITALS: BP 90/62
[2019-03-27 04:00] LABS: CK-MB VALUE MASS 6.6 NG/ML (<3.6); MB/CK RELATIVE INDEX 16.5 (< OR =4)
[2019-03-27] MEDS: SODIUM CHLORIDE 0.9% INJ 10 ML SYR IV SCH ×2 (06:01→09:26)
[2019-03-27 06:12] LABS: HEMATOCRIT 39.4 % (42.0-52.0); HEMOGLOBIN 12.6 g/dl (13.5-17.5); MEAN CORPUSCULAR HEMOGLOBIN 33.4 pg (27.0-33.0); MEAN CORPUSCULAR VOLUME 104.5 fl (80.0-96.0); PLATELET COUNT, AUTOMATED 204 10^3/uL (150-450); RED BLOOD COUNT 3.77 10^6/uL (4.30-6.10); WHITE BLOOD COUNT 4.8 10^3/uL (4.0-10.0)
[2019-03-27 06:37] LABS: BLOOD UREA NITROGEN 27 MG/DL (7-18); CALCIUM LEVEL 8.2 MG/DL (8.8-10.2); CARBON DIOXIDE LEVEL 36 MEQ/L (21-32); CHLORIDE LEVEL 100 MEQ/L (98-107); CREATININE FOR GFR 0.51 MG/DL (0.70-1.30); GLOMERULAR FILTRATION RATE > 60.0 (>42); GLUCOSE, FASTING 87 MG/DL (70-100); POTASSIUM SERUM 3.8 MEQ/L (3.5-5.1); SODIUM LEVEL 140 MEQ/L (136-145)
--- NOTE | 2019-03-27 07:36 | REPVR ---
PROCEDURE INFORMATION: Exam: CT Head Without Contrast Exam date and time: 03/27/2019 7:21 AM Age: 74 years old Clinical history: Other: TIA; Additional info: Transient ischemic attack TECHNIQUE: Imaging protocol: Computed tomography of the head without contrast. Radiation optimization: All CT scans at this facility use at least one of these dose optimization techniques: automated exposure control; mA and/or kV adjustment per patient size (includes targeted exams where dose is matched to clinical indication); or iterative reconstruction. COMPARISON: CT Head without contrast 03/26/2019 2:59 PM FINDINGS: Brain: There is no acute intracranial abnormality. Moderate prominence of ventricles and sulci representing volume loss. Moderate small vessel ischemic changes are seen. There is no mass, midline shift, or mass effect. Rao-white matter differentiation is preserved. There is no evidence of hemorrhage. There is no extra-axial fluid collection. Basal cisterns are patent. Ventricles: See Brain Finding. Bones/joints: Unremarkable. No acute fracture. Sinuses: Visualized sinuses are unremarkable. No fluid levels. Mastoid air cells: Visualized mastoid air cells are well aerated. Soft tissues: Unremarkable. IMPRESSION: 1. Moderate volume loss and small vessel ischemic changes. 2. No acute intracranial abnormality. Electronically signed by: Kaley Peter On 03/27/2019 07:36:01 AM
[2019-03-27 08:00] VITALS: BP 98/56
[2019-03-27] MEDS: POTASSIUM CHLORIDE 10 MEQ SR TABLET PO SCH (09:00)
[2019-03-27] MEDS ORDERED: ASPIRIN 81 MG ENTERIC TAB PO SCH (09:00)
[2019-03-27] MEDS: TORSEMIDE 20 MG TAB PO SCH ×2 (09:24→18:31)
[2019-03-27] MEDS: VITAMIN D 1,000 INTERNATIONAL UNITS TABLET PO SCH (09:24)
[2019-03-27] MEDS: ASPIRIN 325 MG TAB PO SCH (09:25)
[2019-03-27] MEDS: MAGNESIUM OXIDE 400 MG TAB (MAG-OX) PO SCH (09:25)
[2019-03-27 11:46] VITALS: BP 90/50
--- NOTE | 2019-03-27 13:06 | ECGEPIP ---
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
[2019-03-27 16:00] VITALS: BP 101/58
--- NOTE | 2019-03-27 17:59 | IPNPDOC ---
Text Note Date of Service The patient was seen on 03/27/19. NOTE SUBJECTIVE: Patient is seen at bedside, he did not have any recurrence of his symptoms overnight. He feels that he is at his baseline sensory and neuro function. Per his , he is acting his normal self. Unfortunately, the 2 blood cultures drawn in the emergency department are both preliminarily growing gram-positive cocci in clusters. The patient and his state that when they were drawn, both of them were drawn off the PICC line without wiping it with alcohol as the patient and his were instructed to do at [facility]. Both are adamant that they keep the site clean, and take extra precautions when they have to handle the PICC line. He denies fevers, chills, shortness of breath, diarrhea, skin irritation or erythema around the PICC line. He has been afebrile his entire admission, and does not have any leukocytosis. OBJECTIVE: Vital signs: as below General: This is a pleasant elderly male laying in the stretcher in the emergency department. He is in no acute distress. HEENT: Atraumatic, normocephalic. Pupils are equal, round and reactive to light. Extraocular eye movements are intact. Neck: Supple, no masses. Jugular venous pulsations are present at the sternal angle. Chest: There is a PICC line present in the right side of the patient's chest, without surrounding erythema or signs of infection. The patient has severe dextroconvex thoracic scoliotic curve. Lungs: Some mildly diminished breath sounds at the bases of the lungs, otherwise clear to auscultation bilaterally without wheezes, rhonchi or rales. Heart: Regular rate and rhythm. No gallops or rubs. There is a faint end systolic murmur heard best at the second intercostal space on the right without radiation into the carotids. Abdomen: Soft, nondistended, nontender to palpation. Positive bowel sounds throughout. Extremities: There is deformity of the first digit in the right hand. He has no clubbing, cyanosis or edema noted. Neurologic: Cranial nerves II-XII grossly intact without any focal deficits. No diminished sensation. Reflexes are absent. Muscle strength is 2/5 in the bilateral lower extremities, 3/5 in upper extremities bilaterally. Cerebellar testing unable to be performed. Psychiatric: Affect is appropriate. ASSESSMENT: This is a 74-year-old male who likely suffered from a transient ischemic attack. He will be admitted to progressive care unit (PCU) for observation with telemetry. PLAN: 1. Possible transient ischemic attack (TIA). Differential would also include complex migraine, however less likely since he has had a previous TIA. Patient has been asymptomatic overnight, he is on 325 mg aspirin. Echo is pending, but the repeat CT scan of his head was negative. 2. Positive blood cultures, preliminarily growing gram-positive cocci in clusters. Will repeat blood cultures, 20 minutes apart, from different venous sites, as well as get a culture from his PICC line. The patient and his state that the PICC line was not cleaned when the blood cultures were drawn, and the medical record clearly shows there were drawn sequentially (1 minute apart). This is likely a contaminant, but we will empirically treat with IV vancomycin, as the patient is at increased risk due to his heart failure and decline with milrinone drip. 3. End-stage congestive heart failure, on milrinone drip. Ejection fraction is about 24-25%. We will continue the milrinone, torsemide, and digoxin as scheduled. He will be on aspirin 325 mg daily. We will also get an echocardiogram to rule out intracardiac thrombus as he is at an increased risk of those developing due to his end-stage heart failure. 4. Elevated troponin, likely chronic secondary to the patient's end-stage heart failure. The EKG was unchanged from prior but had nonspecific findings. Serial EKGs and troponins did not indicate acute ischemia. Patient has been asymptomatic. 5. Lactic acidosis, most likely type B secondary to decreased perfusion from the patient's end-stage heart failure. Lactic acidosis did not show an upward trend. It is most likely due to hepatic congestion, again from his end-stage heart failure. As he on a milrinone drip and his EF is only 24-25%, I would recommend against fluid resuscitation. 6. Hyperlipidemia, continue his home pravastatin. 6. Osteoporosis. Continue vitamin D. 7. Allergic dermatitis. Continue cetirizine. The patient may use his heparin flushes and normal saline flushes for his PICC line. DISPOSITION: Pending repeat blood cultures, echo report to rule out in tracardiac thrombus VS,Daphne, I+O VS, Daphne, I+O Laboratory Tests 11/22/19 06:01 Vital Signs Date Time Temp Pulse Resp B/P (MAP) Pulse Ox O2 Delivery O2 Flow Rate FiO2 03/27/19 16:00 98.1 58 18 101/58 (72) 97 Room Air I&O- Last 24 Hours up to 6 AM 03/27/19 06:00 Intake Total 120 ml Output Total 600 ml Balance -480 ml GME ATTESTATION GME ATTESTATION My faculty preceptor for this patient encounter was physically present during the encounter and was fully available. All aspects of the patient interview, examination, medical decision making process, and medical care plan development were reviewed and approved by the faculty preceptor. The faculty preceptor is aware and concurs with the plan as stated in the body of this note and will attest to such by his/her cosignature. GME ATTESTATION GME ATTESTATION My faculty preceptor for this patient encounter was physically present during the encounter and was fully available. All aspects of the patient interview, examination, medical decision making process, and medical care plan development were reviewed and approved by the faculty preceptor. The faculty preceptor is aware and concurs with the plan as stated in the body of this note and will attest to such by his/her cosignature. ATTENDING NOTE Patient was seen and examined by me this morning with the residents. Agree with the above assessment and plan KIM MARQUEZ D.O. Mar 27, 2019 17:59 DENICE LOWRY MD Mar 28, 2019 13:56
[2019-03-27] MEDS ORDERED: DICLOFENAC EPOLAMINE 1.3 % PATCH TOP SCH (18:00)
[2019-03-27] MEDS ORDERED: VANCOMYCIN HCL 750 MG, VIAL MATE ADAPTER 1 EACH in D5W 250 ML IV ONE (18:00)
--- NOTE | 2019-03-27 18:47 | PHACANCOPD ---
PHARMACY VANCOMYCIN DOSING Pt Demographics Demographics Patient Age:74 , Weight:51.400 , Gender: male Adjusted Body Weight Date: 03/27/19, Adjusted Body Weight: Kg Events Past 24 Hours Events Past 24 Hours: NO: Dialysis, Diuretic Therapy, Change in CrCl, Fever, Elevation in WBC, Pending Diagnostics, Pending Procedures, Other Vancomycin Vancomycin indication: SEPSIS Vancomycin Target Ranges: 15-20 mcg/ml ( ) Vancomycin Load Y/N: Yes Load Dose Date Time Vancomycin Load Dose: 1250MG Date: 03/27/19 Time: 1800 Vancomycin Dose Date: 03/27/19. Current Vancomycin Dose: [750MG Q12H] Intermittent Dosing?: No Labs Labs Vital Signs Label Value Date Time Patient Temperature 98.4 degrees F 03/27/19 0400 Patient Temperature 98.0 degrees F 03/27/19 0800 Patient Temperature 98.2 degrees F 03/27/19 1146 Patient Temperature 98.1 degrees F 03/27/19 1600 Item Value Date Time White Blood Count 4.8 10^3/uL 03/27/19 0601 Creatinine 0.51 MG/DL L 03/27/19 0601 Micro Microbiology 03/27/19 Blood Culture, Received Pending 03/27/19 Blood Culture, Received Pending 03/26/19 Blood Culture - Preliminary, Resulted 03/26/19 Blood Culture - Preliminary, Resulted Creatinine Clearance Date:03/27/19. Creatinine Clearance: [95mg/Dl]. Assessment and Plan Maintaining Current Dose?: Yes Reason for dose change: No Dose Change Pharmacist Note Pharmacist Note Date: 03/27/19. Pharmacist note: Pt is a 74 yo male admitted to our facility with suspected sepsis. He was afebrile upon admission and WBC were WNL. Initial blood cultures showed gram + cocci in clusters so Vancomycin was initiated for potential MRSA infection. Patients SrCr= 0.51 and CrCl= 95. A vancomycin loading dose of 1,250mg was started followed by a maintenance dose of 750mg Q12H. Patient has no history of MRSA growth and has been treated here with Vancomycin in the past. His very brief treatment history with Vancomycin allowed for one trough level to be drawn which yielded a level of 23.5 with a SrCr= 0.47 and a CrCl= 111.33. We will continue to monitor and dose adjust as necessary. RAYMOND OTT, PHARMACY Mar 27, 2019 18:47
[2019-03-27] MEDS ORDERED: VANCOMYCIN HCL 500 MG in D5W MINI-BAG PLUS 100 ML IV ONE (19:00)
[2019-03-27 20:00] VITALS: BP 100/55
[2019-03-27] MEDS: PRAVASTATIN 10 MG TAB PO SCH (20:20)
[2019-03-27] MEDS: CETIRIZINE (ZyrTEC) 10 MG TAB PO SCH (20:20)
[2019-03-27] MEDS: **NOTE PATIENT COMMENT** MISC XX SCH (21:00)
[2019-03-27] MEDS: POTASSIUM CHLORIDE 40 MEQ PO SCH (21:09)
[2019-03-27] MEDS ORDERED: ACETAMINOPHEN TAB 650MG DOSE (2X325MG) PO PRN (23:15)
[2019-03-27] MEDS: IBUPROFEN 600 MG TAB PO PRN (23:28)
--- NOTE | 2019-03-27 23:56 | ECGEPIP ---
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 Order Number: [id number] Reading MD: Yadiel Adams Measurements Intervals [place] Rate: 80 P: 14 [place]: 331 QRS: -12 QRSD: 164 T: 35 QT: 383 QTc: 443 Interpretive Statements SINUS RHYTHM WITH FIRST DEGREE AV BLOCK WITH OCCASIONAL SUPRAVENTRICULAR PREMATURE COMPLEXES LEFT ATRIAL ENLARGEMENT INTRAVENTRICULAR CONDUCTION DELAY COMPARED TO THE LAST 2 TRACINGS IN THE SYSTEM, NO SIGNIFICANT CHANGES. Electronically Signed on 03-27-2019 23:55:47 EST by Yadiel Adams
--- NOTE | 2019-03-27 23:57 | ECGEPIP ---
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 Order Number: [id number] Reading MD: Yadiel Adams Measurements Intervals [place] Rate: 80 P: 30 [place]: 294 QRS: 6 QRSD: 166 T: 86 QT: 396 QTc: 457 Interpretive Statements SINUS RHYTHM WITH FIRST DEGREE AV BLOCK INTRAVENTRICULAR CONDUCTION DELAY COMPARED TO THE LAST 3 TRACINGS, NO SIGNIFICANT CHANGES Electronically Signed on 03-27-2019 23:56:53 EST by Yadiel Adams
[2019-03-28] VITALS: BP 103/59
[2019-03-28 04:00] VITALS: BP 97/55
[2019-03-28 05:13] LABS: HEMATOCRIT 40.8 % (42.0-52.0); HEMOGLOBIN 13.1 g/dl (13.5-17.5); MEAN CORPUSCULAR HEMOGLOBIN 33.7 pg (27.0-33.0); MEAN CORPUSCULAR HGB CONC 32.1 g/dl (32.0-36.5); MEAN CORPUSCULAR VOLUME 104.9 fl (80.0-96.0); PLATELET COUNT, AUTOMATED 201 10^3/uL (150-450); RED BLOOD COUNT 3.89 10^6/uL (4.30-6.10); WHITE BLOOD COUNT 4.9 10^3/uL (4.0-10.0)
[2019-03-28 05:28] LABS: BLOOD UREA NITROGEN 29 MG/DL (7-18); CALCIUM LEVEL 8.1 MG/DL (8.8-10.2); CARBON DIOXIDE LEVEL 36 MEQ/L (21-32); CHLORIDE LEVEL 101 MEQ/L (98-107); CREATININE FOR GFR 0.51 MG/DL (0.70-1.30); GLOMERULAR FILTRATION RATE > 60.0 (>42); GLUCOSE, FASTING 89 MG/DL (70-100); POTASSIUM SERUM 4.2 MEQ/L (3.5-5.1); SODIUM LEVEL 140 MEQ/L (136-145)
--- NOTE | 2019-03-28 07:51 | ECHO ---
DATE OF PROCEDURE: 03/27/2019 REFERRING PROVIDER: LOCATION: Room 3230 REASON FOR STUDY: TIA. MEASUREMENTS: IVS: 0.9 cm LV: 5.2 cm LVPW: 0.9 cm LA: 4.0 cm Aorta: 3.5 cm IVC: 2.4 cm DOPPLER MEASUREMENTS: Peak velocity across the aortic valve 0.67 meters per second Peak velocity across the LVOT 0.75 meters per second Mitral E: 1.1. Mitral A: 1.3 with a ratio of 0.9 Maximum tricuspid valve velocity 2.9 meters per second 2-D COMMENTS: 1. Normal left ventricular size, wall thickness and a markedly depressed global left ventricular systolic function. The estimated global left ventricular systolic ejection fraction is 25%. 2. Mildly enlarged left atrium. The right atrium also appear to be mildly enlarged. The right ventricle appeared to be normal in size in limited views. The right ventricular free wall was not well visualized. 3. The atrial septum appeared to be normal without evidence of defect or shunt. 4. Normal aortic root. 5. No pericardial effusion seen. 6. Mildly calcified aortic valve, decreased leaflet excursion. 7. Moderately calcified mitral annulus with normal anterior mitral valve leaflet motion. Normal tricuspid valve and pulmonic valve. The proximal pulmonary artery branches were not well visualized. 8. The inferior vena cava was dilated, central venous pressure is most likely elevated. DOPPLER: It detects mild aortic radiation, mild mitral radiation, and mild tricuspid regurgitation, as well as mild pulmonic regurgitation. The calculated pulmonary artery systolic pressure varies between 30-40 mmHg. Abnormal relaxation pattern was noted across the mitral valve leaflets as well as the mitral valve annulus consistent with features of grade 1 left ventricular diastolic dysfunction. IMPRESSION: 1. Severe global left ventricular systolic dysfunction with diffuse hypokinesis. There are features of grade 1 left ventricular diastolic dysfunction manifested by abnormal relaxation. 2. Aortic valve sclerosis with mild aortic regurgitation but no aortic stenosis. 3. Mitral annulus calcification with mildly enlarged left atrium and mild mitral regurgitation. 4. Mild tricuspid regurgitation with mild pulmonary hypertension. The right atrium also appeared to be mildly enlarged. 5. Mild pulmonic regurgitation. 6. There are some features of elevated central venous pressure, the inferior vena cava is mildly enlarged. 7. Pacemaker wire artifact noted. [facility]
[2019-03-28 08:00] VITALS: BP 88/52
[2019-03-28] MEDS: VANCOMYCIN HCL 750 MG, VIAL MATE ADAPTER 1 EACH in D5W 250 ML IV SCH ×2 (08:18→20:01)
[2019-03-28] MEDS: SODIUM CHLORIDE 0.9% INJ 10 ML SYR IV SCH (09:00)
[2019-03-28] MEDS: VITAMIN D 1,000 INTERNATIONAL UNITS TABLET PO SCH (09:51)
[2019-03-28] MEDS: IBUPROFEN 600 MG TAB PO PRN ×2 (09:52→17:17)
[2019-03-28] MEDS: MAGNESIUM OXIDE 400 MG TAB (MAG-OX) PO SCH (09:52)
[2019-03-28] MEDS: DIGOXIN 0.125 MG TAB PO SCH (09:53)
[2019-03-28] MEDS: TORSEMIDE 20 MG TAB PO SCH ×2 (09:54→16:53)
[2019-03-28] MEDS: ASPIRIN 325 MG TAB PO SCH (09:54)
--- NOTE | 2019-03-28 10:58 | IPNPDOC ---
Text Note Date of Service The patient was seen on 03/28/19. NOTE SUBJECTIVE: Patient is seen at bedside, he continues to not have any recurrence of TIA symptoms. He feels that he is at his baseline sensory and neuro function. Per his , he is acting his normal self. Unfortunately, the 2 blood cultures drawn in the emergency department are both preliminarily growing gram-positive cocci in clusters, which according to the patient and his they were both drawn off the PICC line without wiping it with alcohol. He denies fevers, chills, shortness of breath, diarrhea, skin irritation or erythema around the PICC line. He has been afebrile his entire admission, and does not have any leukocytosis on repeated CBCs. OBJECTIVE: Vital signs: as below General: This is a pleasant elderly male laying in bed. He is in no acute dist ress. HEENT: Atraumatic, normocephalic. Pupils are equal, round and reactive to light. Extraocular eye movements are intact. Neck: Supple, no masses. Jugular venous pulsations are present at the sternal angle. Chest: There is a PICC line present in the right side of the patient's chest, without surrounding erythema or signs of infection. The patient has severe dextroconvex thoracic scoliotic curve. Lungs: Breath sounds are clear to auscultation bilaterally without wheezes, rhonchi or rales. Heart: Regular rate and rhythm. No gallops or rubs. There is a faint end systolic murmur heard best at the second intercostal space on the right without radiation into the carotids. Abdomen: Soft, nondistended, nontender to palpation. Positive bowel sounds throughout. Extremities: There is deformity of the first digit in the right hand. He has no clubbing, cyanosis or edema noted. Neurologic: Cranial nerves II-XII grossly intact without any focal deficits. No diminished sensation. Reflexes are absent. Muscle strength is 2/5 in the bilateral lower extremities, 3/5 in upper extremities bilaterally. Cerebellar testing unable to be performed. Psychiatric: Affect is appropriate. ASSESSMENT: This is a 74-year-old male who likely suffered from a transient ischemic attack. He was admitted to progressive care unit (PCU) for observation with telemetry. PLAN: 1. Possible transient ischemic attack (TIA). Differential would also include complex migraine, however less likely since he has had a previous TIA. Patient has been asymptomatic overnight, he is on 325 mg aspirin. Echo did not show any intracardiac thrombus or valvular vegetations and the repeat CT scan of his head was negative for acute ischemic or hemorrhagic disease. MRI not completed due to the patient having an AICD which is not MRI compatible. 2. Positive blood cultures, preliminarily growing gram-positive cocci in clusters. Repeat blood cultures done before initiation of IV vancomycin are pending. Initial cultures may be contaminated as they were drawn sequentially (per the medical record) and per the patient and his , the PICC line was not cleaned when the blood cultures were drawn. If repeat cultures do not grow anything, vancomycin can be stopped. 3. End-stage congestive heart failure, on milrinone drip. Ejection fraction is 25%, confirmed by echocardiogram, which did not show any valvular vegetations or intracardiac thrombus. We will continue the milrinone, torsemide, and digoxin as scheduled. He will be on aspirin 325 mg daily. He is not on an Bala in hibitor/ARB or beta keyshawn due to inability of his blood pressure to tolerate these medications. 4. Elevated troponin, likely chronic secondary to the patient's end-stage heart failure and ischemic cardiomyopathy. The EKG was unchanged from prior but had nonspecific findings. Serial EKGs and troponins did not indicate acute ischemia. Patient has been asymptomatic. 5. Lactic acidosis, most likely type B secondary to decreased perfusion from the patient's end-stage heart failure. Lactic acidosis did not show an upward trend. It is most likely due to hepatic congestion, again from his end-stage heart failure. As he on a milrinone drip and his EF is only 25%, I would recommend against fluid resuscitation. 6. Hyperlipidemia, continue his home pravastatin. 6. Osteoporosis. Continue vitamin D. 7. Allergic dermatitis. Continue cetirizine. The patient may use his heparin flushes and normal saline flushes for his PICC line. DISPOSITION: Pending repeat blood cultures Daphne NGUYEN, I+O Daphne NGUYEN I+O Laboratory Tests 03/28/19 04:47 Vital Signs Date Time Temp Pulse Resp B/P (MAP) Pulse Ox O2 Delivery O2 Flow Rate FiO2 03/28/19 09:53 75 03/28/19 08:00 96.4 17 88/52 (64) 93 Room Air I&O- Last 24 Hours up to 6 AM 03/28/19 05:59 Intake Total 1310 ml Output Total 800 ml Balance 510 ml GME ATTESTATION GME ATTESTATION My faculty preceptor for this patient encounter was physically present during the encounter and was fully available. All aspects of the patient interview, examination, medical decision making process, and medical care plan development were reviewed and approved by the faculty preceptor. The faculty preceptor is aware and concurs with the plan as stated in the body of this note and will attest to such by his/her cosignature. GME ATTESTATION GME ATTESTATION My faculty preceptor for this patient encounter was physically present during the encounter and was fully available. All aspects of the patient interview, examination, medical decision making process, and medical care plan development were reviewed and approved by the faculty preceptor. The faculty preceptor is aware and concurs with the plan as stated in the body of this note and will attest to such by his/her cosignature. ATTENDING NOTE Patient was seen and examined by me this morning with the residents. Agree with the above assessment and plan The patient has no neurological symptoms. He is at his baseline. 2-D echo was done which shows no vegetation or intracardiac thrombus. Because of his high ABCD 2 score. Aspirin has been escalated TO 325. The patient cannot get an MRI as his AICD is incompatible. The patient was found to have 2 positive blood cultures with gram-positive cocci in clusters, for which she has been started on vancomycin. 2. Other blood cultures have been sent from his PICC line and other peripheral site before giving the dose of vancomycin. If those stool cultures are also negative. This can be possibly a contamination. He understands and once it is established that either this is true bacteremia versus contamination. The final decision will be taken regarding his antibiotics. His PICC line site looks clean. He continues to be on milrinone for his end-stage heart failure. KIM SPENCE MD, D.O. Mar 28, 2019 10:58 DENICE LOWRY MD Mar 28, 2019 14:04
[2019-03-28] MEDS: LIDOCAINE 5% (LIDODERM) PATCH TD SCH (11:14)
[2019-03-28] MEDS: POTASSIUM CHLORIDE 40 MEQ PO SCH (11:34)
[2019-03-28 12:00] VITALS: BP 99/57
[2019-03-28 16:00] VITALS: BP 82/53
--- NOTE | 2019-03-28 19:27 | REPVR ---
PROCEDURE INFORMATION: Exam: US Duplex Bilateral Extracranial Arteries Exam date and time: 03/28/2019 5:42 PM Age: 74 years old Clinical history: Other: TIA TECHNIQUE: Imaging protocol: Real-time Duplex ultrasound scan of the bilateral carotid and vertebral arteries combining stevens scale, color Doppler and spectral waveform analysis. Bilateral exam. COMPARISON: CT Head without contrast 03/27/2019 7:17 AM FINDINGS: There is mild atherosclerotic plaque formation right left carotid bifurcation. Right side: The right ICA to CCA ratio is 1 and the velocity of the right internal carotid artery is 64 cm/sec. The right vertebral artery is antegrade. There is no evidence of significant stenosis right internal carotid artery and the amount of narrowing would be less than 50 %. Left side: The left ICA to CCA ratio is 1 with a peak velocity of the left internal carotid artery 85.7 cm/sec. The amount of narrowing of the left ICA would be less than 50%. There is mild narrowing of the left ECA. The left vertebral artery is antegrade. IMPRESSION: No evidence of significant stenosis right or left internal carotid artery. COMMENT: Carotid Stenosis Reference using SRU criteria: Mild: less than 50% stenosis. ICA PSV is less than 125 cm/second and plaque or intimal thickening is visible. Moderate: 50-69% stenosis. ICA PSV is 125 to 230 cm/second and plaque is visible. Severe: 70-94% stenosis. ICA PSV is more than 230 cm/second and visible plaque and lumen narrowing are seen. Near occlusion: 95-99% stenosis. ICA PSV is variable and significant plaque and luminal narrowing are seen. Occluded: 100% stenosis. No flow identified. Electronically signed by: Geoffrey Hernandez On 03/28/2019 19:26:52 PM
[2019-03-28 20:00] VITALS: BP 93/55
[2019-03-28] MEDS: CETIRIZINE (ZyrTEC) 10 MG TAB PO SCH (20:00)
[2019-03-28] MEDS: PRAVASTATIN 10 MG TAB PO SCH (20:00)
[2019-03-28] MEDS: **NOTE PATIENT COMMENT** MISC XX SCH (20:29)
[2019-03-29] VITALS (7 sets, daily range): BP systolic 90–104; BP diastolic 53–68
[2019-03-29] MEDS: IBUPROFEN 600 MG TAB PO PRN ×4 (00:28→18:48)
[2019-03-29 06:49] LABS: HEMATOCRIT 41.1 % (42.0-52.0); HEMOGLOBIN 12.9 g/dl (13.5-17.5); MEAN CORPUSCULAR HEMOGLOBIN 33.7 pg (27.0-33.0); MEAN CORPUSCULAR HGB CONC 31.4 g/dl (32.0-36.5); MEAN CORPUSCULAR VOLUME 107.3 fl (80.0-96.0); PLATELET COUNT, AUTOMATED 186 10^3/uL (150-450); RED BLOOD COUNT 3.83 10^6/uL (4.30-6.10); WHITE BLOOD COUNT 4.9 10^3/uL (4.0-10.0)
[2019-03-29 07:11] LABS: BLOOD UREA NITROGEN 33 MG/DL (7-18); CALCIUM LEVEL 7.8 MG/DL (8.8-10.2); CARBON DIOXIDE LEVEL 33 MEQ/L (21-32); CHLORIDE LEVEL 101 MEQ/L (98-107); CREATININE FOR GFR 0.72 MG/DL (0.70-1.30); GLOMERULAR FILTRATION RATE > 60.0 (>42); GLUCOSE, FASTING 77 MG/DL (70-100); POTASSIUM SERUM 3.9 MEQ/L (3.5-5.1); SODIUM LEVEL 141 MEQ/L (136-145); VANCOMYCIN LEVEL TROUGH 19.6 UG/ML (10.0-20.0)
[2019-03-29] MEDS ORDERED: POTASSIUM CHLORIDE 10 MEQ SR TABLET PO SCH (09:00)
[2019-03-29] MEDS: SODIUM CHLORIDE 0.9% INJ 10 ML SYR IV SCH (09:05)
[2019-03-29] MEDS: TORSEMIDE 20 MG TAB PO SCH ×3 (09:06→17:26)
[2019-03-29] MEDS: MAGNESIUM OXIDE 400 MG TAB (MAG-OX) PO SCH (09:06)
[2019-03-29] MEDS: ASPIRIN 325 MG TAB PO SCH (09:06)
[2019-03-29] MEDS: VITAMIN D 1,000 INTERNATIONAL UNITS TABLET PO SCH (09:06)
[2019-03-29] MEDS: LIDOCAINE 5% (LIDODERM) PATCH TD SCH (09:07)
[2019-03-29] MEDS ORDERED: ISOVUE-370 76% 100ML VIAL (Q9967) As Ordered ONE (09:16)
[2019-03-29] MEDS: LINEZOLID 600 MG in IV 1 EA IV SCH ×2 (11:09→23:27)
[2019-03-29] MEDS: POTASSIUM CHLORIDE 10 MEQ PO SCH (11:31)
--- NOTE | 2019-03-29 11:35 | REPVR ---
PROCEDURE INFORMATION: Exam: CT Angiography Head With Contrast Exam date and time: 03/29/2019 10:47 AM Age: 74 years old Clinical history: Weakness; Additional info: Right face/arm paresthesias TECHNIQUE: Imaging protocol: Computed tomography angiography of the head with intravenous contrast. 3D rendering: MIP reconstructed images were created and reviewed. Radiation optimization: All CT scans at this facility use at least one of these dose optimization techniques: automated exposure control; mA and/or kV adjustment per patient size (includes targeted exams where dose is matched to clinical indication); or iterative reconstruction. Contrast material: ISOVUE 370; Contrast volume: 100 ml; Contrast route: IV; COMPARISON: CT Head without contrast 03/27/2019 7:17 AM FINDINGS: There is no high-grade stenosis, occlusion, aneurysm, dissection, or other acute abnormality of the distal internal carotid arteries, basilar artery, anterior, middle, or posterior cerebral arteries. No evidence of high flow vascular malformation. Mild intracranial atherosclerosis. Severe thoracic dextroscoliosis noted on the rn infusion radiograph as well as a left-sided pacemaker device and right-sided vascular catheter. Extensive airspace opacities throughout the right lung. IMPRESSION: No high-grade stenosis or occlusion of the major [place] vasculature. Airspace opacities throughout the right lung, consider dedicated chest radiograph. Electronically signed by: Cheng Branham On 03/29/2019 11:35:31 AM
--- NOTE | 2019-03-29 11:39 | REPVR ---
PROCEDURE INFORMATION: Exam: CT Angiography Neck With Contrast Exam date and time: 03/29/2019 10:47 AM Age: 74 years old Clinical history: Weakness; Additional info: Right face/arm paresthesia TECHNIQUE: Imaging protocol: Computed tomography angiography of the neck with intravenous contrast. 3D rendering: MIP and 3D reconstructed images were created and reviewed. Radiation optimization: All CT scans at this facility use at least one of these dose optimization techniques: automated exposure control; mA and/or kV adjustment per patient size (includes targeted exams where dose is matched to clinical indication); or iterative reconstruction. Contrast material: ISOVUE 370; Contrast volume: 100 ml; Contrast route: IV; COMPARISON: No relevant prior studies available. FINDINGS: There is no high-grade stenosis, occlusion, dissection, aneurysm, or other acute abnormality of the cervical carotid or vertebral arteries. Mild atherosclerosis at the carotid bifurcations with less than 50% narrowing. Vertebral arteries are codominant. Partially imaged layering right pleural effusion, with severe thoracic scoliosis present. Right-sided vascular catheter terminates in the distal SVC and left-sided pacemaker is present. The main pulmonary artery is dilated up to 3.5 cm suggesting underlying pulmonary hypertension. IMPRESSION: No high-grade stenosis or occlusion of the cervical carotid or vertebral arteries. COMMENT: Reference per NASCET criteria for degree of stenosis: Mild: less than 50% stenosis. Moderate: 50-69% stenosis. Severe: 70-94% stenosis. Near occlusion: 95-99% stenosis. Findings were discussed with PROSPER DOWNING at 03/29/2019 11:39 AM EST. Electronically signed by: Cheng Branham On 03/29/2019 11:39:27 AM
--- NOTE | 2019-03-29 17:05 | IPN ---
DATE: 03/29/2019 The patient is seen and examined at the bedside. Chart has been reviewed. The patient denies any chest pain, pressure, tightness, lightheadedness or dizziness. Denies any upper or lower extremity weakness. Denies any paresthesias currently. PHYSICAL EXAMINATION: VITAL SIGNS: Temperature 97.4, pulse 78, respiratory rate 20, blood pressure 104/61, 98% on room air. Face is symmetric. Tongue is midline. Pupils are equal, round and reactive. LUNGS: Diminished but clear to auscultation. Right Infusaport noted. HEART: S1, S2. Sinus rhythm. No murmurs, rubs or gallops. ABDOMEN: Soft, nontender, nondistended. EXTREMITIES: No pitting edema. LABORATORY DATA: White count 4.9, hemoglobin 12, hematocrit 41, platelet count 186. Sodium 141, potassium 3.9, chloride 101, bicarbonate 33, BUN 33, creatinine 0.72, glucose 77. ASSESSMENT AND PLAN: This is a 74-year-old male with a history of congestive heart failure (CHF), systolic dysfunction, AICD, follows with Dr. Clemens in [facility], chronic Milrinone drip, followed locally by Dr. 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 Olguin, hyperlipidemia, osteoporosis, who was admitted for right facial and arm paresthesias with a history of transient ischemic attack in 2016, currently on aspirin 325 mg daily, echocardiogram on 03/28/2019 shows ejection fraction of 25%, grade I diastolic dysfunction, severe diffuse hypokinesis with left ventricular systolic dysfunction, mild tricuspid regurgitation, mild pulmonary hypertension, mild mitral regurgitation, aortic regurgitation with no aortic stenosis, admitted to rule out CVA. IMPRESSION: 1. Right face and arm paresthesias. CT was negative and shows diffuse volume loss, chronic microangiopathic ischemic disease, currently on aspirin [address] angio of the head and neck. Neurology consult if positive for CVA. May need higher anticoagulant. 2. Ejection fraction of 25%, chronic systolic and diastolic heart failure, compensated at this time on chronic torsemide with holding parameters 40 mg twice a day. Follows at the [facility] in [place]. Strict input and output, daily weights. Followed locally by Dr. Yadiel Adams. Continue on digoxin. Monitor levels. 3. Blood culture with Staphylococcus leukodontia, on IV vancomycin.
[2019-03-29] MEDS: **NOTE PATIENT COMMENT** MISC XX SCH (21:00)
[2019-03-29] MEDS: CETIRIZINE (ZyrTEC) 10 MG TAB PO SCH (21:23)
[2019-03-29] MEDS: PRAVASTATIN 10 MG TAB PO SCH (21:23)
[2019-03-30] VITALS: BP 86/53
[2019-03-30] MEDS: IBUPROFEN 600 MG TAB PO PRN ×2 (03:02→11:51)
[2019-03-30 04:00] VITALS: BP 91/51
[2019-03-30 08:00] VITALS: BP 101/54
[2019-03-30 08:03] LABS: BLOOD UREA NITROGEN 31 MG/DL (7-18); CALCIUM LEVEL 8.1 MG/DL (8.8-10.2); CARBON DIOXIDE LEVEL 33 MEQ/L (21-32); CHLORIDE LEVEL 100 MEQ/L (98-107); GLOMERULAR FILTRATION RATE > 60.0 (>42); GLUCOSE, FASTING 77 MG/DL (70-100); POTASSIUM SERUM 3.8 MEQ/L (3.5-5.1); SODIUM LEVEL 139 MEQ/L (136-145)
[2019-03-30] MEDS ORDERED: ASPI-1 PO (08:08)
[2019-03-30] MEDS ORDERED: DAPT500I IV (08:17)
[2019-03-30 08:30] LABS: BASO # 0.1 10^3/uL (0.0-0.2); BASO % 1.4 % (0.0-1.0); EOS # 0.3 10^3/uL (0.0-0.5); HEMATOCRIT 38.5 % (42.0-52.0); HEMOGLOBIN 12.3 g/dl (13.5-17.5); LYMPH # 0.6 10^3/uL (1.5-5.0); LYMPH % 10.9 % (24.0-44.0); MEAN CORPUSCULAR HEMOGLOBIN 33.9 pg (27.0-33.0); MEAN CORPUSCULAR HGB CONC 31.9 g/dl (32.0-36.5); MEAN CORPUSCULAR VOLUME 106.1 fl (80.0-96.0); MONO # 0.6 10^3/uL (0.0-0.8); MONO % 11.3 % (0.0-5.0); NEUTROPHILS # 3.6 10^3/uL (1.5-8.5); PLATELET COUNT, AUTOMATED 179 10^3/uL (150-450); RED BLOOD COUNT 3.63 10^6/uL (4.30-6.10)
[2019-03-30 09:06] LABS: VANCOMYCIN LEVEL TROUGH 12.1 UG/ML (10.0-20.0)
[2019-03-30] MEDS: VITAMIN D 1,000 INTERNATIONAL UNITS TABLET PO SCH (09:34)
[2019-03-30] MEDS: ASPIRIN 325 MG TAB PO SCH (09:34)
[2019-03-30] MEDS: MAGNESIUM OXIDE 400 MG TAB (MAG-OX) PO SCH (09:35)
[2019-03-30] MEDS: DIGOXIN 0.125 MG TAB PO SCH (09:35)
[2019-03-30] MEDS: SODIUM CHLORIDE 0.9% INJ 10 ML SYR IV SCH (09:37)
[2019-03-30] MEDS: POTASSIUM CHLORIDE 10 MEQ PO SCH (09:37)
[2019-03-30] MEDS: LIDOCAINE 5% (LIDODERM) PATCH TD SCH (09:47)
[2019-03-30] MEDS: TORSEMIDE 20 MG TAB PO SCH (09:47)
[2019-03-30] MEDS ORDERED: DAPTOmycin 500 MG in NS 50 ML IV ONE (11:00)
[2019-03-30 12:00] VITALS: BP 109/61
--- NOTE | 2019-03-30 19:27 | DSES ---
DATE OF ADMISSION: 03/26/2019 DATE OF DISCHARGE: 03/30/2019 DISCHARGE DIAGNOSIS: 1. Transient ischemic attack (TIA) 2. Staphylococcus lugdunensis bacteremia. 3. End-stage chronic and systolic, diastolic heart failure with ejection fraction of 25% on milrinone infusion CONSULTANTS: None. HOSPITAL COURSE: This is a 74-year-old male with a past medical history significant for end-stage congestive heart failure On milrinone drip, who was recently discharged from [facility] on 03/17/2019, who presented to the emergency department after having a TIA. He was playing [employer] in his home office on the computer around 1:45 p.m. and suddenly felt his "head swimming sideways." He stated that he had felt lightheaded and thought he was going to passed out; and because he was feeling so weak, he leaned back and realized he could not lean forward. He had right arm and hand paresthesias, as well as paresthesias of the right side of his face and mouth with some right ear anesthesia. He has slurring of his speech and double vision with right ear tinnitus, as well. When Emergency Medical Service (EMS) arrived, he vomited and his symptoms had resolved by the time he arrived to emergency department. He was admitted to PCU for observation with telemetry. His ABCD squared score was for points indicating moderate risk for subsequent stroke. He discussed the case with the patient's neurologist, Dr. Dove who recommended the patient be on 325 mg of aspirin and do a repeat head CT. We also discussed the case with Dr. Adams, who indicated that the AICD the patient has would not be compatible with MRI. The 2-D echo did not show any intracardiac thrombus. Head CTs done greater than 12 hours apart without contrast were negative for any acute bleeding cortical infarction mass, effect hydrocephalous or calvarial fracture. Carotid ultrasounds showed no evidence of stenosis or significant stenosis of the right or left internal carotid artery. CT angiogram of the neck revealed no high- grade stenosis, occlusion dissection, aneurysm or other acute abnormalities of the cervical carotid for retrieval arteries. CT angiography of the head showed no high-grade stenosis, occlusion, aneurysm, dissection or other acute abnormality of the distal internal carotid arteries, basal artery, anterior, middle or posterior cerebral arteries. No evidence of high-flow vascular malformation. Only mild intracranial atherosclerosis was seen. The patient during his hospital stay did not have any significant events on telemetry or any recurrence of the symptoms for which he presented to the hospital with. There blood cultures that were drawn in the emergency department, which grew Staphylococcus lugdunensis. Repeated blood cultures drawn almost 24 hours later before antibiotics were started; showed no growth after 48 hours for the blood that was cultured from the patient's tunneled catheter in the right upper chest; however, out of the two venous blood cultures, one is preliminarily growing gram-positive cocci in clusters. Repeat cultures have been drawn. The patient had been afebrile without leukocytosis for the entirety of his hospital stay. His WBC count fluctuated between 5.4 and 4.8. There was no tachycardia or signs of infection; however, given that he has a right tunnel catheter central line for his milrinone drip, it was prudent to place him on antibiotic therapy. 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 Dr. Hudson, nurse practitioner was Marylou Faith. Marylou discussed this with Dr. Guerrier from the infectious disease department, who agreed with Dr. Hudson's recommendations for 14 days of vancomycin with a repeat blood culture to be drawn a week after cessation of therapy. On the day of discharge, the patient was meeting all discharge criteria. I also discussed the case with Dr. Shiela Shi, who is the patient's primary care provider. I discussed the plan of care with her, including weekly CPK as the patient will be going home on daptomycin infusion for 14 days, as well as for the repeat blood culture to be drawn a week after he finishes daptomycin therapy, which will be on April 13, with blood culture to be drawn April 20. She was in agreement with the plan and the patient and his were enthusiastic about being able to go home. DISCHARGE MEDICATIONS: - aspirin 325 mg by mouth daily - daptomycin 500 mg IV daily for 14 days - calcium carbonate, vitamin D3, vitamin K one tablet one by mouth daily - cetirizine 10 mg by mouth at bedtime (q.h.s.) - vitamin D3 2000 units by mouth daily - digoxin 125 mcg by mouth every 2 days - magnesium oxide 4 mg by mouth daily - milrinone drip per [employer] 1.6 mg IV every hour - potassium chloride 40 mEq by mouth twice a day - pravastatin 10 mg by mouth at bedtime (q.h.s.) - torsemide 40 mg by mouth twice a day LABORATORY DATA: CBC from 03/30/2019 showed WBC of 5.0, hemoglobin 12.3, hematocrit 38.3, platelets 179 with a differential showing 71% neutrophils, 11% lymphocytes and 11% monocytes. Chemistry: Done 03/30/2019 showed electrolytes imbalance with a sodium of 139, potassium 3.8, chloride 100, carbon dioxide 33, BUN 31, creatinine 0.80, fasting glucose of 77 and a calcium of 8.1. Toxicology: Vancomycin did not reach therapeutic levels, initial trough was 19.6 and repeated trough on the was 12.1. Serology: Lyme disease, IgG and IgM pending. IMAGING STUDIES: As mentioned above. Chest x-ray done 03/26/2019 showed severe scoliosis, cardiomegaly with pacemaker, central venous tunnel catheter in place in the right upper chest. No evidence of pleural effusion or pulmonary edema. Head CT: 03/26/2019 showed no acute intracranial process. Diffuse volume loss and mild sequelae of chronic microangiopathic ischemic disease. CT of the head without contrast done 03/27/2019 showed moderate volume loss and small vessel ischemic changes. No acute intracranial abnormality. Vascular ultrasound done 03/28/2019 showed no evidence of significant stenosis for the right or left internal carotid all artery. CT angiogram of the neck done 03/29/2019 showed no high-grade stenosis or occlusion of the cervical, carotid or vertebral arteries. CT angiography of the head done 03/29/2019 showed no high-grade stenosis, occlusion, aneurysm, dissection or other acute abnormality of the distal internal carotid arteries, basilar artery, anterior, middle, posterior cerebral arteries. No evidence of high flow vascular malformation. Mild intracranial atherosclerosis. Severe thoracic dextrose scoliosis noted on the scout sniper radiograph, as well as the left sided pacemaker device and right-sided vascular catheter. Impression was no high-grade stenosis or occlusion of the major [place] vasculature. Micro: As mentioned above. Blood cultures done 03/26/2019 were both positive for Staphylococcus lugdunensis. Repeat blood cultures show only one out of two venous growing gram-positive cocci in clusters. The culture from the patient's right side tunnel catheter is not showing any growth after 48 hours. Repeat blood cultures drawn yesterday from both the port and the venous are showing no growth after 24 hours. Blood cultures from 03/30/2019 are pending. PHYSICAL EXAMINATION: VITALS: Temperature 98.4, pulse 60 and regular, respiratory rate 17, blood pressure 109/61, pulse oximetry is 93% on room air. General: This is a pleasant elderly male lying in his bed in the PCU in no acute distress. HEENT: Atraumatic, normocephalic. Pupils are equal, round and reactive to light. Extraocular eye movements are intact. There are no lesions in the mouth. The patient is Mallampati three. Tongue is midline. Uvula is midline. There is no facial droop. NECK: Supple, no masses. No jugular venous distension (JVD). CHEST: There is a right-sided tunnel catheter in the patient's chest. He has a severe dextroconvex thoracic scoliotic curve. He uses accessory muscles to breathe. LUNGS: Some mildly diminished breath sounds at the base of the lungs, otherwise clear to auscultation bilaterally without wheezes, rhonchi or rales. HEART: Regular rate and rhythm. No gallops or rubs. He has a faint end systolic murmur heard best at the second intercostal space on the right without radiation into the carotids. Pulses are equal bilaterally, 2+ in all four extremities. Capillary refill is less than 2 seconds in all four extremities. ABDOMEN: Positive bowel sounds throughout, soft, nondistended, nontender to palpation. EXTREMITIES: Deformity of the first digit of the right hand. He has no clubbing, cyanosis or edema. 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 NEUROLOGIC: Cranial nerves II-XII grossly intact without any focal deficits. There is no diminished sensation, reflexes are absent bilaterally. Muscle strength is 2/5 in the bilateral lower extremities 3/5 in the upper extremities bilaterally. Cerebellar testing unable to be performed. PSYCHIATRIC: Affect is appropriate. DISCHARGE/PLAN: 1. Possible transient ischemic attack. Workup was unrevealing. We will send the patient home on 325 mg of aspirin. 2. End-stage congestive heart failure on milrinone drip. Ejection fraction 25%. Continue milrinone per [facility] in [place]. Echocardiogram did not reveal any intracardiac thrombus. 3. Staphylococcus lugdunensis bacteremia. To be discharged on daptomycin for 14 days. Weekly CPKs and repeat blood cultures one week after therapy has been discontinued. The patient's primary care provider has been aware. BOBD
[2019-04-01 00:07] LABS: Lyme Disease IgG/IgM Antibodie <0.91 ISR (0.00-0.90); Lyme Disease IgM Ab Quantitati <0.80 index (0.00-0.79)
== END 2019-03-30 16:59 | disposition home health service (06) | DRG 69 ==
LOC: M ED 14:44 → EDBD 14:44 → M ED INP 18:04 → M PCU 18:46
PROVIDERS: ADMIT Internal Medicine; ATTEND General Practice
DX: G45.9 Transient cerebral ischemic attack, unspecified (principal); E87.2 Acidosis; I50.42 Chronic combined systolic (congestive) and diastolic (congestive) heart failure; Z79.82 Long term (current) use of aspirin; Z79.899 Other long term (current) drug therapy; E78.5 Hyperlipidemia, unspecified; Z88.0 Allergy status to penicillin; Z88.8 Allergy status to other drugs, medicaments and biological substances; Z87.891 Personal history of nicotine dependence; M81.0 Age-related osteoporosis without current pathological fracture; L25.9 Unspecified contact dermatitis, unspecified cause

== ENCOUNTER 2019-04-02 17:04 | Inpatient (IN) | payer MEDICARE, OTHER ==
[~2019-04-02] VITALS: Ht 154.9 cm; Wt 46.9 kg
[~2019-04-02 17:04] MED LIST changes: +ASPI-1 PO; +DAPT500I IV; +DIGO0.123 PO; +K-TA10TA2 PO; +POTA10TA17 PO; +[UNRECOGNIZED DRUG - CODE] IV; +[UNRECOGNIZED DRUG - CODE] IV
[2019-04-02] MEDS ORDERED: NS 1,000 ML IV SCH ×2 (18:00→18:45)
[2019-04-02 18:44] LABS: BASO # 0.1 10^3/uL (0.0-0.2); BASO % 0.9 % (0.0-1.0); EOS # 0.1 10^3/uL (0.0-0.5); EOS % 1.7 % (0.0-3.0); HEMATOCRIT 42.6 % (42.0-52.0); HEMOGLOBIN 13.5 g/dl (13.5-17.5); LYMPH # 0.4 10^3/uL (1.5-5.0); LYMPH % 8.2 % (24.0-44.0); MEAN CORPUSCULAR HEMOGLOBIN 33.8 pg (27.0-33.0); MEAN CORPUSCULAR HGB CONC 31.7 g/dl (32.0-36.5); MEAN CORPUSCULAR VOLUME 106.8 fl (80.0-96.0); MONO # 0.5 10^3/uL (0.0-0.8); MONO % 9.9 % (0.0-5.0); NEUTROPHILS # 4.2 10^3/uL (1.5-8.5); NEUTROPHILS % 78.7 % (36.0-66.0); PLATELET COUNT, AUTOMATED 178 10^3/uL (150-450); RED BLOOD COUNT 3.99 10^6/uL (4.30-6.10); WHITE BLOOD COUNT 5.4 10^3/uL (4.0-10.0)
[2019-04-02 18:54] LABS: INR 1.03; PROTHROMBIN TIME 13.2 SECONDS (11.8-14.0)
[2019-04-02 18:55] LABS: PARTIAL THROMBOPLASTIN TIME 27.7 SECONDS (25.0-38.4)
[2019-04-02 19:08] LABS: ALBUMIN 3.5 GM/DL (3.2-5.2); ALT/SGPT 28 U/L (12-78); BILIRUBIN,TOTAL 0.7 MG/DL (0.2-1.0); BLOOD UREA NITROGEN 38 MG/DL (7-18); CALCIUM LEVEL 9.8 MG/DL (8.8-10.2); CARBON DIOXIDE LEVEL 37 MEQ/L (21-32); CHLORIDE LEVEL 97 MEQ/L (98-107); CREATININE FOR GFR 1.04 MG/DL (0.70-1.30); GLOMERULAR FILTRATION RATE > 60.0 (>42); GLUCOSE, FASTING 98 MG/DL (70-100); LIPASE 193 U/L (73-393); POTASSIUM SERUM 4.2 MEQ/L (3.5-5.1); SODIUM LEVEL 140 MEQ/L (136-145); TOTAL PROTEIN 6.9 GM/DL (6.4-8.2)
[2019-04-02] MEDS ORDERED: ISOVUE-370 76% 100ML VIAL (Q9967) As Ordered ONE (19:13)
--- NOTE | 2019-04-02 20:00 | REPVR ---
PROCEDURE INFORMATION: Exam: CT Abdomen And Pelvis With Contrast Exam date and time: 04/02/2019 7:50 PM Age: 74 years old Clinical history: Abdominal pain; Tenderness; Right lower quadrant (rlq); Additional info: Alexei bloody diarrhea, rlq tender, recent asa TECHNIQUE: Imaging protocol: Computed tomography of the abdomen and pelvis with intravenous contrast. Radiation optimization: All CT scans at this facility use at least one of these dose optimization techniques: automated exposure control; mA and/or kV adjustment per patient size (includes targeted exams where dose is matched to clinical indication); or iterative reconstruction. Contrast material: ISOVUE 370; Contrast volume: 100 ml; Contrast route: IV; COMPARISON: CT ABD PELVIS W/O FOL BY NAVID 2014-07-09 08:45 FINDINGS: Pleural space: Moderate bilateral pleural effusions. Heart: Moderate cardiac enlargement. Liver: Normal. No mass. Gallbladder and bile ducts: Cholelithiasis. Pancreas: Normal. No ductal dilation. Spleen: Normal. No splenomegaly. Adrenals: Normal. No mass. Kidneys and ureters: Normal. No hydronephrosis. Stomach and bowel: Constipation. Moderate diverticulosis coli without acute inflammation. Appendix: No evidence of appendicitis. Intraperitoneal space: Unremarkable. No free air. No significant fluid collection. Vasculature: Mild to moderate aortic and iliac artery atherosclerotic calcification. Lymph nodes: Unremarkable. No enlarged lymph nodes. Bladder: Unremarkable as visualized. Reproductive: 5 cm prostate gland with prostatic seeds and calcifications. Bones/joints: Moderate lumbar spondylosis. Severe S-shaped scoliosis. 9 mm L4-L5 anterolisthesis. Moderate right hip joint effusion. Soft tissues: Prominence of the hemorrhoidal soft tissues in the anorectal region. IMPRESSION: 1. Constipation. 2. 5 cm prostate gland with prostatic seeds and calcifications. 3. Moderate cardiac enlargement. 4. Moderate right hip joint effusion. 5. Moderate diverticulosis coli without acute inflammation. 6. Prominence of the hemorrhoidal soft tissues in the anorectal region. 7. Cholelithiasis. Electronically signed by: Duglas Ely On 04/02/2019 20:00:14 PM
[2019-04-02] MEDS ORDERED: ACETAMINOPHEN 500 MG TAB PO ONE (20:45)
[2019-04-02] MEDS: TORSEMIDE 20 MG TAB PO SCH (21:00)
[2019-04-02] MEDS ORDERED: POTASSIUM CHLORIDE 10 MEQ SR TABLET PO SCH (21:00)
[2019-04-02] MEDS: PRAVASTATIN 10 MG TAB PO SCH (21:00)
[2019-04-02] MEDS ORDERED: DAPTOmycin 500 MG in NS 50 ML IV SCH (21:00)
[2019-04-02] MEDS ORDERED: DAPT500I IV (21:37)
[2019-04-02] MEDS ORDERED: BAYE325T12 PO (21:37)
--- NOTE | 2019-04-02 22:05 | HPEPDOC ---
General Date of Admission Apr 02, 2019 at 21:25 Date of Service: Apr 02, 2019 Chief Complaint The patient is a 74-year-old male admitted with a reason for visit of Gi Bleed. Source: Patient Exam Limitations: No limitations Timing/Duration: 4-6 hours Severity: Mild History of Present Illness Patient is 74 years old male with past medical history of systolic CHF with ejection fraction less than 25%, on milrinone drip, recent TIA on aspirin 325 mg presented hospital with multiple episodes of diarrhea with red blood. Patient stated that today around 2 PM he developed multiple episodes of diarrhea with bright, red blood. Patient has a history of hemorrhoids and diverticulosis. Patient denied any abdominal pain, fever or chills. Patient has been recently hospitalized for TIA and he received treatment with daily aspirin 325 mg. Patient denied any epigastric pain. Of note his last admission he was diagnosed with bacteremia with Staphylococcus lugdunensis, on daptomycin infusion for 14 days, the last day of infusion April 13. In emergency room patient was found to have hemoglobin of 13.5. Stool for occult blood positive Home Medications Scheduled Aspirin (Aspirin) 325 Mg Tablet, 325 MG PO DAILY, (Reported) Calcium Carb/Vitamin D3/Vit K1 (Viactiv 650 mg-12.5 Mcg Chew) 1 Each Tab.chew, 1 EACH PO DAILY, (Reported) Cetirizine HCl (Cetirizine HCl) 10 Mg Tablet, 10 MG PO QHS, (Reported) Cholecalciferol (Vitamin D3) (Vitamin D3) 1,000 Unit Tablet, 2,000 UNIT PO DAILY, (Reported) Daptomycin (Daptomycin) 500 Mg Vial, 500 MG IV QHS, (Reported) Digoxin (Digoxin) 125 Mcg Tablet, 125 MCG PO Q2D, (Reported) Magnesium Oxide (Magnesium Oxide) 400 Mg Tablet, 400 MG PO DAILY, (Reported) Milrinone Lactate/D5w (Milrinone-D5w 40 mg/200 ml) 40 Mg/200 Ml Piggyback, 1.6 MG IV CONTINUOUS, (Reported) 26.6MCG/MIN RATE ON CONTINUOUS DRIP. 0.5MCG/KG/MIN FROM [facility]. Potassium Chloride (Potassium Chloride) 10 Meq Tab.er.prt, 20 MEQ PO BID, (Reported) Pravastatin Sodium (Pravastatin Sodium) 10 Mg Tab, 10 MG PO QHS, (Reported) Torsemide (Torsemide) 20 Mg Tablet, 40 MG PO BID, (Reported) Allergies Coded Allergies: Penicillins (Verified Allergy, Intermediate, hives, 10/02/18) latex (Verified Allergy, Mild, rash , 03/26/19) Past Medical History Medical History Prostate cancer, status post radiation with Dr. 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 End-stage congestive heart failure with an ejection fraction of 24-25% with automatic implantable cardioverter defibrillator (AICD), recently discharged from [facility] in [place] on a milrinone drip, follows locally with Dr. Roc. Dawson in [place]. 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 Olguin. Itchy skin for which he sees [facility] Nurse Practitioners. Hyperlipidemia. Osteoporosis for which he sees Dr. Edwige Schultz and is on Prolia every 6 months. History of TIA in 2016. Surgical History 1. Wrist surgery. 2. Small bowel resection. 3. Back surgery as a child. Family History I personally reviewed his family history and found unremarkable Social History Alcohol: occationally Drugs: denies A-FIB/CHADSVASC A-FIB History Current/History of A-Fib/PAF?: No Current PO Anticoag Therapy: No Review of Systems Constitutional: Denies: Chills, Fever Eyes: Denies: Pain, Vision change ENT: Denies: Ear Pain Skin: Denies: Rash, Lesions Pulmonary: Denies: Dyspnea, Cough Cardiovascular: Denies: Chest Pain, Palpitations Gastrointestinal: Reports: Diarrhea, Hematochezia; Denies: Nausea, Vomiting Genitourinary: Denies: Dysuria, Frequency Hematologic: Denies: Bruising, Bleeding Excessively Endocrine: Denies: Polydipsia, Polyphagia Musculoskeletal: Denies: Neck Pain Neurological: Denies: Weakness, Numbness Psych: Reports: Mood Normal Physical Examination General Exam: Positive: Alert, Cooperative Eye Exam: Positive: PERRLA ENT Exam: Positive: Atraumatic Neck Exam: Positive: Supple, JVD Chest Exam: Positive: Clear to auscultation Heart Exam: Positive: Rate Normal Telemetry: Positive: Sinus; Negative: No significant arrhythmia Abdomen Exam: Positive: BS Hyperactive; Negative: Normal bowel sounds Extremity Exam: Negative: Clubbing, Cyanosis Skin Exam: Positive: Nl turgor and temperature Neuro Exam: Positive: Strength at 5/5 X4 ext, Cranial Nerves 3-12 NL Psych Exam: Positive: Mental status NL Vital Signs Vital Signs Date Time Temp Pulse Resp B/P (MAP) Pulse Ox O2 Delivery O2 Flow Rate FiO2 04/02/19 17:48 04/02/19 17:05 98.1 96 20 96 Room Air Laboratory Data Labs 24H Laboratory Tests 2 04/02/19 18:24: Immature Granulocyte % (Auto) 0.6, Neutrophils (%) (Auto) 78.7H, Lymphocytes (%) (Auto) 8.2L, Monocytes (%) (Auto) 9.9H, Eosinophils (%) (Auto) 1.7, Basophils (%) (Auto) 0.9, Neutrophils # (Auto) 4.2, Lymphocytes # (Auto) 0.4L, Monocytes # (Auto) 0.5, Eosinophils # (Auto) 0.1, Basophils # (Auto) 0.1, Nucleated Red Blood Cells % (auto) 0.0, Prothrombin Time 13.2, Prothromb Time International Ratio 1.03, Activated Partial Thromboplast Time 27.7, Anion Gap 6L, Glomerular Filtration Rate > 60.0, Calcium Level 9.8, Total Bilirubin 0.7, Aspartate Amino Transf (AST/SGOT) 44H, Alanine Aminotransferase (ALT/SGPT) 28, Alkaline Phosphatase 145H, Total Protein 6.9, Albumin 3.5, Albumin/Globulin Ratio 1.03, Lipase 193 CBC/BMP Laboratory Tests 04/02/19 18:24 Microbiology Microbiology 04/02/19 Gastrointestinal Tract Panel (PCR) - Final, Complete 04/02/19 Blood Culture, Received Pending 04/02/19 Blood Culture, Received Pending Assessment/Plan Patient is 74 years old male with past medical history of systolic CHF with ejection fraction less than 25%, on milrinone drip, recent TIA on aspirin 325 mg presented hospital with multiple episodes of diarrhea with red blood. Patient stated that today around 2 PM he developed multiple episodes of diarrhea with bright, red blood. Patient has a history of hemorrhoids and diverticulosis. Problems (1) GI bleed Status: Acute Problem Text: Most likely secondary to diverticulosis, patient denied any abdominal pain. Hemoglobin is stable around 13. Patient is afebrile. No leukocytosis H&H every 6 hours Patient euvolemic, I will hold any IV fluid nightly his history of advanced CHF I will transfuse him if hemoglobin drop less than 9 I will hold aspirin 325 mg for now due to ongoing GI bleed PPI Consider GI consult in the morning (2) CHF (congestive heart failure) Status: Chronic Problem Text: Not in acute exacerbation Continue milrinone drip Continue home cardioprotective medication (3) CAD (coronary artery disease) Status: Chronic Problem Text: Continue home cardioprotective medications Aspirin 325 mg on hold (4) Bacteremia Status: Resolved Problem Text: History of Staphylococcus lugdunensis bacteremia on previous admission On daptomycin IV, should complete the course on April 13 Plan / VTE VTE Prophylaxis Ordered?: No VTE Exclusion Pharmacological: Active Bleeding ROXANA NAQVI DO Apr 02, 2019 22:05
[2019-04-02 22:38] LABS: HEMOGLOBIN 11.6 g/dl (13.5-17.5)
[2019-04-02 22:55] VITALS: BP 88/44
[2019-04-03] VITALS (8 sets, daily range): BP systolic 90–101; BP diastolic 27–58
[2019-04-03] MEDS ORDERED: MILRINONE IV SCH
[2019-04-03] MEDS ORDERED: [UNRECOGNIZED DRUG - OTHER] IV SCH
[2019-04-03] MEDS: CETIRIZINE (ZyrTEC) 10 MG TAB PO SCH ×2 (00:31→21:49)
[2019-04-03] MEDS ORDERED: D5W/0.9% SODIUM CHLORIDE 1,000 ML IV SCH (03:45)
[2019-04-03 05:44] LABS: HEMOGLOBIN 10.4 g/dl (13.5-17.5); MEAN CORPUSCULAR HGB CONC 32.5 g/dl (32.0-36.5); MEAN CORPUSCULAR VOLUME 104.6 fl (80.0-96.0); PLATELET COUNT, AUTOMATED 164 10^3/uL (150-450); RED BLOOD COUNT 3.06 10^6/uL (4.30-6.10)
[2019-04-03] MEDS: SODIUM CHLORIDE 0.9% INJ 10 ML SYR IV SCH ×2 (05:51→18:00)
[2019-04-03 06:07] LABS: BLOOD UREA NITROGEN 41 MG/DL (7-18); CALCIUM LEVEL 8.9 MG/DL (8.8-10.2); CARBON DIOXIDE LEVEL 36 MEQ/L (21-32); CHLORIDE LEVEL 97 MEQ/L (98-107); CREATININE FOR GFR 1.09 MG/DL (0.70-1.30); GLOMERULAR FILTRATION RATE > 60.0 (>42); GLUCOSE, FASTING 109 MG/DL (70-100); MAGNESIUM LEVEL 2.2 MG/DL (1.8-2.4); POTASSIUM SERUM 3.5 MEQ/L (3.5-5.1); SODIUM LEVEL 140 MEQ/L (136-145)
[2019-04-03] MEDS: MAGNESIUM OXIDE 400 MG TAB (MAG-OX) PO SCH (08:46)
[2019-04-03] MEDS: TORSEMIDE 20 MG TAB PO SCH ×2 (08:46→21:50)
[2019-04-03] MEDS: VITAMIN D 1,000 INTERNATIONAL UNITS TABLET PO SCH (08:46)
[2019-04-03] MEDS: OMEPRAZOLE 20 MG CAP PO SCH ×2 (08:47→21:49)
[2019-04-03] MEDS: DIGOXIN 0.125 MG TAB PO SCH (08:47)
[2019-04-03] MEDS: POTASSIUM CHLORIDE 10 MEQ XX SCH ×2 (09:00→21:59)
[2019-04-03 11:20] LABS: HEMATOCRIT 32.4 % (42.0-52.0); HEMOGLOBIN 10.2 g/dl (13.5-17.5)
--- NOTE | 2019-04-03 11:22 | IPNPDOC ---
Text Note Date of Service The patient was seen on 04/03/19. NOTE Subjective: -had 1 bloody BM overnight, none since 3AM without any abdominal pain, fever, chills, shortness of breath, chest pain, palpitations, back pain or new dizziness. ROS: -10 point ROS was otherwise negative, except noted above. Objective: Vitals: Hemodynamically stable and afebrile, see below General: Severe kyphoscoliosis, otherwise in NAD HEENT: NCAT, PERRLA, EOMI, MMM Neck: Supple, no JVD Pulm: CTAB RRR: regular rate and rhythm Abd: Normoactive, soft, NTND Ext: chronic LE 2+ pitting edema to midshins, WWP Neuro: AOx3, moving all extremities with limitation from his severe kyphoscolisis Labs: Reviewed. Hgb 13.5->11.6-> now 10.4 this morning (received 2L NS), K 3.5, Cr 1.09, Mag 2.2 74 years old man with advanced HFrEF, EF<25%, on chronic milrinone gtt, history of PE and recent TIA, chronic thrombocytopenia, this not on anticoagulation, recently on aspirin 325 mg who presented to the hospital with multiple episodes of painless hematochezia in the setting of a known history of hemorrhoids and diverticulosis, with CT A/P confirming them without evidence of inflammation, who is being treated supportively with ongoing monitoring and surgery made aware of his admission. His course was c/b SOB after receiving 2L of NS, without hypoxemia and on daily BID diuretics. Problems Acute Lower GI bleed Status: Acute Problem Text: Most likely secondary to diverticulosis, without abdominal pain, with 2 point hgb drop. -H&H every 6 hours -continue holding aspirin 325 mg in the setting of a GI bleed -surgery not officially consulted at this time, but did SUSHILI Dr. Phillip to infer if he warrants a transfer to [facility] given his significant cardiac history and he recommended keeping him as he would expect if this is hemo rrhoidal vs. diverticulosis to be self limited and to hold giving fluids that may tip him into decompensated state and give blood products instead if hypotensive. Advanced HFrEF Status: Chronic, Not in acute exacerbation -Continue milrinone drip -continue torsemide 40 PO BID -Borderline BP, if he needs volume to give blood NOT fluids. -Hold all fluids given advanced CHF and new SOB -Continue home cardioprotective medication CAD Status: Chronic -Continue home cardioprotective medications -Aspirin 325 mg on hold Recent Bacteremia, Resolved, completing course of antibiotics. 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
[2019-04-03] MEDS: ACETAMINOPHEN TAB 650MG DOSE (2X325MG) PO PRN ×2 (12:24→21:50)
[2019-04-03] MEDS: DAPTOmycin 500 MG in NS 50 ML IV SCH (15:20)
[2019-04-03 16:03] LABS: HEMATOCRIT 33.6 % (42.0-52.0); HEMOGLOBIN 10.5 g/dl (13.5-17.5)
[2019-04-03] MEDS ORDERED: DAPTOmycin 500 MG/10 ML VIAL (CUBICIN) (J0878) IV SCH (21:00)
[2019-04-03] MEDS: PRAVASTATIN 10 MG TAB PO SCH (21:49)
[2019-04-04 04:00] VITALS: BP 93/53
[2019-04-04] MEDS: SODIUM CHLORIDE 0.9% INJ 10 ML SYR IV SCH ×2 (05:14→16:32)
[2019-04-04 08:00] VITALS: BP 98/60
[2019-04-04] MEDS: VITAMIN D 1,000 INTERNATIONAL UNITS TABLET PO SCH (08:03)
[2019-04-04] MEDS: TORSEMIDE 20 MG TAB PO SCH ×2 (08:03→17:17)
[2019-04-04] MEDS: MAGNESIUM OXIDE 400 MG TAB (MAG-OX) PO SCH (08:03)
[2019-04-04] MEDS: OMEPRAZOLE 20 MG CAP PO SCH ×2 (08:03→20:34)
[2019-04-04] MEDS: POTASSIUM CHLORIDE 10 MEQ XX SCH ×2 (08:04→20:34)
[2019-04-04] MEDS: ACETAMINOPHEN TAB 650MG DOSE (2X325MG) PO PRN ×2 (11:19→23:55)
[2019-04-04 12:00] VITALS: BP 100/68
[2019-04-04] MEDS: DAPTOmycin 500 MG in NS 50 ML IV SCH (15:23)
[2019-04-04 16:00] VITALS: BP 94/60
[2019-04-04] MEDS ORDERED: metOLazone 2.5 MG TAB PO ONE (16:30)
--- NOTE | 2019-04-04 17:32 | IPNPDOC ---
Text Note Date of Service The patient was seen on 04/04/19. NOTE Subjective: -BMs have slowed down and no ignacio hematochezia -Remains to have no abdominal pain, fever, chills, chest pain or palpitations -Discussed that his Hgb had been stable now over 2 days and that I would be comfortable discharging him home to see GI outpatient but him and his expressed that he was more short of breath than his recent baseline and were worried about discharge home with such a change. We settled on adding metolazone to his torsemide as he has been instructed by his tumor registrar for when he becomes short of breath. ROS: -10 point ROS was otherwise negative, except noted above. Objective: Vitals: Hemodynamically stable and afebrile, see below General: Severe kyphoscoliosis, otherwise in NAD HEENT: NCAT, PERRLA, EOMI, MMM Neck: Supple, no JVD Pulm: CTAB RRR: regular rate and rhythm Abd: Normoactive, soft, NTND Ext: chronic LE 2+ pitting edema to midshins, WWP Neuro: AOx3, moving all extremities, has severe kyphoscolisis Labs: Reviewed. Hgb stable at 10.6, K 3.5, Cr 1.1 74 years old man with advanced HFrEF, EF<25%, on chronic milrinone gtt, history of PE and recent TIA, chronic thrombocytopenia, this not on anticoagulation, recently on aspirin 325 mg who presented to the hospital with multiple episodes of painless hematochezia in the setting of a known history of hemorrhoids and diverticulosis, with CT A/P confirming them without evidence of inflammation, who was treated supportively with. His course has been c/b SOB without hypoxemia while on his baseline daily torsemide BID, and we are now adding metolazone as we prepare for discharge home. Acute Lower GI bleed Status: Acute Problem Text: Most likely secondary to diverticulosis, without abdominal pain, with 2 point hgb drop. -continue holding aspirin 325 mg in the setting of a GI bleed -surgery not officially consulted, but did PONCHO Phillip to infer if he warrants a transfer to [facility] given his significant cardiac history and he recommended keeping him as he would expect this hemorrhoidal vs. diverticular bleed to be self limited and to hold giving fluids that may tip him into decompensated state and give blood products instead if hypotensive. -H/H now stable, can now check daily Advanced HFrEF Status: Chronic, Not in acute exacerbation -Continue milrinone drip -continue torsemide 40 PO BID, and add metolazone 2.5mg to this PM's dose -Borderline BP, if he needs volume to give blood NOT fluids. -No fluids given advanced CHF and new SOB -Continue home cardioprotective medication CAD Status: Chronic -Continue home cardioprotective medications -Aspirin 325 mg on hold Recent Bacteremia, Resolved, completing course of antibiotics. 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
[2019-04-04] MEDS ORDERED: POTASSIUM CHLORIDE 10 MEQ SR TABLET PO ONE (18:00)
[2019-04-04 20:00] VITALS: BP 94/54
[2019-04-04] MEDS: CETIRIZINE (ZyrTEC) 10 MG TAB PO SCH (20:34)
[2019-04-04] MEDS: PRAVASTATIN 10 MG TAB PO SCH (20:34)
[2019-04-04 23:59] VITALS: BP 96/53
[2019-04-05] VITALS (8 sets, daily range): BP systolic 80–111; BP diastolic 51–64
[2019-04-05] MEDS: SODIUM CHLORIDE 0.9% INJ 10 ML SYR IV SCH ×2 (05:01→16:44)
[2019-04-05 05:12] LABS: HEMATOCRIT 29.6 % (42.0-52.0); HEMOGLOBIN 9.4 g/dl (13.5-17.5); MEAN CORPUSCULAR HEMOGLOBIN 33.5 pg (27.0-33.0); MEAN CORPUSCULAR HGB CONC 31.8 g/dl (32.0-36.5); MEAN CORPUSCULAR VOLUME 105.3 fl (80.0-96.0); PLATELET COUNT, AUTOMATED 180 10^3/uL (150-450); RED BLOOD COUNT 2.81 10^6/uL (4.30-6.10); WHITE BLOOD COUNT 5.5 10^3/uL (4.0-10.0)
[2019-04-05 05:38] LABS: CALCIUM LEVEL 9.2 MG/DL (8.8-10.2); CREATININE FOR GFR 1.77 MG/DL (0.70-1.30); GLOMERULAR FILTRATION RATE 40.3 (>42); POTASSIUM SERUM 5.3 MEQ/L (3.5-5.1)
[2019-04-05] MEDS: ACETAMINOPHEN TAB 650MG DOSE (2X325MG) PO PRN ×2 (06:02→21:47)
[2019-04-05] MEDS: POTASSIUM CHLORIDE 10 MEQ XX SCH ×2 (09:00→21:00)
--- NOTE | 2019-04-05 09:08 | REP ---
Clinical: Shortness of breath. Comparison: 03/26/2019. Findings: Mediastinum and cardiac silhouette are stable. Double-lumen central line and single lead pacemaker are in stable satisfactory position. The lung clancy demonstrate chronic changes with superimposed lower lobe opacities suggesting consolidations and small layering effusions which may be slightly increased from prior examination. No pneumothorax. Skeletal structures stable. Impression: Mildly increased bibasilar opacities suggested. Electronically Signed by Fabio Nunez MD 04/05/2019 08:59 A
[2019-04-05] MEDS: DIGOXIN 0.125 MG TAB PO SCH (09:51)
[2019-04-05] MEDS: OMEPRAZOLE 20 MG CAP PO SCH ×2 (09:51→21:47)
[2019-04-05] MEDS: VITAMIN D 1,000 INTERNATIONAL UNITS TABLET PO SCH (09:51)
[2019-04-05] MEDS: MAGNESIUM OXIDE 400 MG TAB (MAG-OX) PO SCH (09:51)
--- NOTE | 2019-04-05 11:56 | IPNPDOC ---
Text Note Date of Service The patient was seen on 04/05/19. NOTE Subjective: -Multiple BMs but without ignacio hematochezia -No abdominal pain, fever, chills, chest pain or palpitations -Continues to have shortness of breath without hypoxemia Interim events: -gave metolazone 2.5mg with PM dose of BID torsemide without much effect -Low UOP -Worsening Cr, and mild worsening of Hgb without evidence of more bleeding -Officially consulted Dr. Adams ROS: -10 point ROS was otherwise negative, except noted above. Objective: Vitals: Hemodynamically stable and afebrile, see below General: Severe kyphoscoliosis, otherwise in NAD HEENT: NCAT, PERRLA, EOMI, MMM Neck: Supple, no JVD Pulm: CTAB, no crackles RRR: regular rate and rhythm Abd: Normoactive, soft, NTND Ext: chronic LE 2+ pitting edema to midshins, WWP Neuro: AOx3, moving all extremities, has severe kyphoscolisis Labs: Reviewed. Hgb dropped from 10.6-->9.4, K 5.3, Cr increased 1.1-->1.77 74 years old man with advanced HFrEF, EF<25%, on chronic milrinone gtt, history of PE and recent TIA, chronic thrombocytopenia, this not on anticoagulation, recently on aspirin 325 mg who presented to the hospital with multiple episodes of painless hematochezia in the setting of a known history of hemorrhoids and diverticulosis, with CT A/P confirming them without evidence of inflammation, who was treated supportively with. His course has been c/b SOB without hypoxemia while on his baseline daily torsemide BID, declining UOP with a new BYRON c/f volume depletion and so will officially consult cardiology today and give blood x 1 unit. Acute Lower GI bleed Status: Acute Problem Text: Most likely secondary to diverticulosis, without abdominal pain, with 2 point hgb drop. -continue holding aspirin 325 mg in the setting of a GI bleed -surgery not officially consulted, but did PONCHO Phillip to infer if he warrants a transfer to [facility] given his significant cardiac history and he recommended keeping him as he would expect this hemorrhoidal vs. diverticular bleed to be self limited and to hold giving fluids that may tip him into decompensated state and give blood products instead if hypotensive. -Will give 1u pRBCs today, and recheck labs at 3PM Advanced HFrEF Status: Chronic, Not in acute exacerbation -Continue milrinone drip -discontinue torsemide 40 PO BID, in the setting of low UOP and increasing Cr with euvolemic to possibly dry exam, will give 1u pRBCs -Borderline BP, if he needs more volume to give blood NOT fluids. -No fluids given advanced CHF and new SOB -Continue home cardioprotective medication -Consult cardiology -check proBNP and CXR this AM, and recheck BMP after blood administration at 3PM CAD Status: Chronic -Continue home cardioprotective medications -Aspirin 325 mg on hold Recent Bacteremia, Resolved, completing course of antibiotics. 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
[2019-04-05] MEDS: MULTIVITAMINS/MINERALS THERAP 1 TAB PO SCH (15:08)
[2019-04-05] MEDS: DAPTOmycin 500 MG in NS 50 ML IV SCH (15:09)
[2019-04-05 15:19] LABS: HEMOGLOBIN 11.5 g/dl (13.5-17.5); MEAN CORPUSCULAR HEMOGLOBIN 33.1 pg (27.0-33.0); MEAN CORPUSCULAR HGB CONC 31.9 g/dl (32.0-36.5); MEAN CORPUSCULAR VOLUME 103.7 fl (80.0-96.0); PLATELET COUNT, AUTOMATED 184 10^3/uL (150-450); RED BLOOD COUNT 3.47 10^6/uL (4.30-6.10); WHITE BLOOD COUNT 5.9 10^3/uL (4.0-10.0)
[2019-04-05 15:39] LABS: CALCIUM LEVEL 9.4 MG/DL (8.8-10.2); CREATININE FOR GFR 2.1 MG/DL (0.70-1.30); GLOMERULAR FILTRATION RATE 33.1 (>42); POTASSIUM SERUM 4.9 MEQ/L (3.5-5.1)
[2019-04-05] MEDS: PRAVASTATIN 10 MG TAB PO SCH (21:47)
[2019-04-05] MEDS: CETIRIZINE (ZyrTEC) 10 MG TAB PO SCH (21:47)
[2019-04-06] VITALS (9 sets, daily range): BP systolic 92–117; BP diastolic 55–68
[2019-04-06] MEDS: SODIUM CHLORIDE 0.9% INJ 10 ML SYR IV SCH ×2 (05:10→18:43)
[2019-04-06 05:11] LABS: HEMATOCRIT 33.8 % (42.0-52.0); HEMOGLOBIN 10.7 g/dl (13.5-17.5); MEAN CORPUSCULAR HEMOGLOBIN 32.9 pg (27.0-33.0); MEAN CORPUSCULAR HGB CONC 31.7 g/dl (32.0-36.5); PLATELET COUNT, AUTOMATED 172 10^3/uL (150-450); RED BLOOD COUNT 3.25 10^6/uL (4.30-6.10); WHITE BLOOD COUNT 5.1 10^3/uL (4.0-10.0)
[2019-04-06 05:31] LABS: CALCIUM LEVEL 9.1 MG/DL (8.8-10.2); CREATININE FOR GFR 2.02 MG/DL (0.70-1.30); GLOMERULAR FILTRATION RATE 34.6 (>42); POTASSIUM SERUM 4.2 MEQ/L (3.5-5.1)
[2019-04-06] MEDS: MAGNESIUM OXIDE 400 MG TAB (MAG-OX) PO SCH (08:50)
[2019-04-06] MEDS: POTASSIUM CHLORIDE 10 MEQ XX SCH ×2 (08:50→20:59)
[2019-04-06] MEDS: OMEPRAZOLE 20 MG CAP PO SCH ×2 (08:50→20:59)
[2019-04-06] MEDS: VITAMIN D 1,000 INTERNATIONAL UNITS TABLET PO SCH (08:50)
[2019-04-06] MEDS: MULTIVITAMINS/MINERALS THERAP 1 TAB PO SCH (08:50)
[2019-04-06 12:57] LABS: CLOSTRIDIUM DIFFICILE PCR NEGATIVE (NEGATIVE)
[2019-04-06] MEDS ORDERED: FUROSEMIDE 100 MG/10 ML VIAL (J1940) IV ONE (15:00)
[2019-04-06] MEDS: MILRINONE/DEXTROSE 20 MG in IV 1 EA IV SCH (17:15)
--- NOTE | 2019-04-06 19:04 | IPNPDOC ---
Text Note Date of Service The patient was seen on 04/06/19. NOTE Subjective: -Copious BMs resolved. C.diff negative -No abdominal pain, fever, chills, chest pain or palpitations -Shortness of breath without hypoxemia has improved -Feels a little bit more puffy than baseline Interim events: -got 1u pRBC yesterday -Low UOP -No diuretics yesterday ROS: -10 point ROS was otherwise negative, except noted above. Objective: Vitals: Hemodynamically stable and afebrile, see below General: Severe kyphoscoliosis, otherwise in NAD HEENT: NCAT, PERRLA, EOMI, MMM Neck: Supple, no noted JVD Pulm: CTAB, continues to have no crackles with good air movement RRR: regular rate and rhythm Abd: Normoactive, soft, NTND Ext: chronic LE 2+ pitting edema to midshins, WWP Neuro: AOx3, moving all extremities, has severe kyphoscolisis Labs: Reviewed. Hgb 10.7, K 4.2, Cr slightly downtrended to 2.02 74 years old man with advanced HFrEF, EF<25%, on chronic milrinone gtt, history of PE and recent TIA, chronic thrombocytopenia, this not on anticoagulation, recently on aspirin 325 mg who presented to the hospital with multiple episodes of painless hematochezia in the setting of a known history of hemorrhoids and diverticulosis, with CT A/P confirming them without evidence of inflammation, who was treated supportively with. His course has been c/b SOB without hypoxemia while on his baseline daily torsemide BID, declining UOP with a new BYRON with co mplicated determination of intravascular volume with cardiology on board. Acute Lower GI bleed Status: Acute Problem Text: Most likely secondary to diverticulosis, without abdominal pain, with 2 point hgb drop. -continue holding aspirin 325 mg in the setting of a GI bleed -surgery not officially consulted, but did PONCHO Phillip over the weekend to infer if he warrants a transfer to [facility] given his significant cardiac history and he recommended keeping him as he predicted that the hemorrhoidal vs. diverticular bleed would be self limited and to hold giving fluids that may tip him into decompensated HF and give blood products instead if hypotensive. -s/p 1u pRBCs on 04/05 -Will continue to monitor H/H while inpatient, with plan for GI referral as outpatient, unless he has a brisk bleeding event and H/H drop will consult GI inpatient Advanced HFrEF Status: Chronic, Not in acute exacerbation -Continue milrinone drip switched for patient's pump to hospital gtt -discontinued his home torsemide 40 PO BID on 04/05 --> with resultant low UOP. -Cardiology onboard, spoke with Dr. Rice recommending giving him 80 IV lasix once at this time and will come to see him today -Borderline BP, if he needs more volume to give blood NOT fluids or titration of milrinone gtt -No fluids given advanced CHF and new SOB -Continue home cardioprotective medication CAD Status: Chronic -Continue home cardioprotective medications -Aspirin 325 mg on hold Recent Bacteremia, Resolved, completing course of antibiotics. 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 Aware that his BYRON is most likely cardiorenal but intravascular volume status has been difficult to determine and initially received volume, albeit it was initially NS, but then he got 1u pRBC with slight improvement, however with SOB and slightly worsened edema, so giving lasix 80 IV per cardiology. -will continue to monitor -will order renal US at this time as well DVT ppx: None while GIB, on SCDs Diet: cardiac diet Dispo: PCU VS,Fishbone, I+O VS, Fishbone, I+O Laboratory Tests 04/06/19 04:59 Vital Signs Date Time Temp Pulse Resp B/P (MAP) Pulse Ox O2 Delivery O2 Flow Rate FiO2 04/06/19 18:30 98.6 87 20 102/66 (78) 100 NIPPV (BIPAP/CPAP) I&O- Last 24 Hours up to 6 AM 04/06/19 06:00 Intake Total 790 ml Output Total 100 ml Balance 690 ml MUSA ORTA MD Apr 06, 2019 19:04
--- NOTE | 2019-04-06 20:54 | REPVR ---
PROCEDURE INFORMATION: Exam: US Retroperitoneal Limited, Kidneys Exam date and time: 04/06/2019 8:05 PM Age: 74 years old Clinical history: Screening exam; Other: Ion TECHNIQUE: Imaging protocol: Real-time ultrasound of the retroperitoneum with image documentation. Examination was focused on the kidneys. COMPARISON: ABD COMPLETE US 08/30/2018 8:15 PM FINDINGS: Right kidney: No stones. No hydronephrosis. No mass. Normal cortical thickness and echotexture. Left kidney: No stones. No hydronephrosis. No mass. Normal cortical thickness and echotexture. Prostate: Prostate gland is heterogeneous but is normal size. Bladder: The bladder is decompressed. IMPRESSION: Unremarkable renal ultrasound. Electronically signed by: Jeffery Hardwick On 04/06/2019 20:54:05 PM
[2019-04-06] MEDS: CETIRIZINE (ZyrTEC) 10 MG TAB PO SCH (20:59)
[2019-04-06] MEDS: PRAVASTATIN 10 MG TAB PO SCH (20:59)
[2019-04-07] VITALS (10 sets, daily range): BP systolic 85–105; BP diastolic 51–60
[2019-04-07] MEDS: ACETAMINOPHEN TAB 650MG DOSE (2X325MG) PO PRN (03:59)
[2019-04-07] MEDS: SODIUM CHLORIDE 0.9% INJ 10 ML SYR IV SCH ×2 (05:20→17:32)
[2019-04-07] MEDS: MILRINONE/DEXTROSE 20 MG in IV 1 EA IV SCH ×2 (05:20→17:32)
[2019-04-07 08:14] LABS: HEMATOCRIT 33.4 % (42.0-52.0); HEMOGLOBIN 10.8 g/dl (13.5-17.5); MEAN CORPUSCULAR HEMOGLOBIN 33.1 pg (27.0-33.0); MEAN CORPUSCULAR HGB CONC 32.3 g/dl (32.0-36.5); MEAN CORPUSCULAR VOLUME 102.5 fl (80.0-96.0); PLATELET COUNT, AUTOMATED 166 10^3/uL (150-450); RED BLOOD COUNT 3.26 10^6/uL (4.30-6.10); WHITE BLOOD COUNT 4.2 10^3/uL (4.0-10.0)
[2019-04-07 08:38] LABS: CALCIUM LEVEL 8.3 MG/DL (8.8-10.2); CREATININE FOR GFR 1.31 MG/DL (0.70-1.30); GLOMERULAR FILTRATION RATE 57.1 (>42); MAGNESIUM LEVEL 2.5 MG/DL (1.8-2.4); POTASSIUM SERUM 3.8 MEQ/L (3.5-5.1)
[2019-04-07] MEDS: MAGNESIUM OXIDE 400 MG TAB (MAG-OX) PO SCH (08:43)
--- NOTE | 2019-04-07 08:51 | IPN ---
DATE OF SERVICE: 04/07/2019 Mr. Flores tells me that he is feeling a little bit better today than he did yesterday. He feels a little less short of breath, but denies any dizziness or chest discomfort. Vital Signs: This morning, blood pressure 95/51. Heart rate has been in 70s and 80s. He is afebrile. Saturation is 95% on room air. Fluid balance yesterday was recorded as positive 320 and the recorded output was only 100 mL. Weight this morning is 48.5. He is alert, oriented and appropriate. His jugular venous pulse (JVP) is still very high, 7-8 cm above the clavicle. 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 Heart exam reveals irregular tachycardia with positive S3. I do not appreciate any murmur. Abdomen is soft. There is about 1 to 2+ edema to his knees. Laboratory-glover, his basic metabolic panel is pending. CBC reveals a hemoglobin of 10, hematocrit 33 and platelet count 166,000. ASSESSMENT/PLAN: Mr. Flores is a 74-year-old man who has severe nonischemic cardiomyopathy with advanced heart failure. He was evaluated in the heart transplant clinic in [place] and was found not to be a candidate for either LVAD nor heart transplantation and was discharged home with milrinone drip. He tells me that initially he felt a little bit better but as of the last few weeks the effect has been receding. Currently, he is in exacerbated heart failure and is still very volume overloaded. I am waiting for his morning blood work, which is still pending. He is still very volume overloaded and so he will need diuresis. I am concerned about very little urine output that he had yesterday. I had a discussion with him and his about his wishes. At this point, I think he is still just learning the situation, but his current decision is to pursue a trial of intubation, but no defibrillation. Dr. Adams is going to be back tomorrow. NUVIA
[2019-04-07] MEDS: VITAMIN D 1,000 INTERNATIONAL UNITS TABLET PO SCH (08:52)
[2019-04-07] MEDS: OMEPRAZOLE 20 MG CAP PO SCH ×2 (08:52→20:39)
[2019-04-07] MEDS: DIGOXIN 0.125 MG TAB PO SCH (08:52)
[2019-04-07] MEDS: MULTIVITAMINS/MINERALS THERAP 1 TAB PO SCH (08:52)
[2019-04-07] MEDS: POTASSIUM CHLORIDE 10 MEQ XX SCH ×2 (08:52→20:39)
[2019-04-07] MEDS ORDERED: FUROSEMIDE 100 MG/10 ML VIAL (J1940) IV ONE (09:00)
[2019-04-07] MEDS: DAPTOmycin 500 MG in NS 50 ML IV SCH (15:25)
--- NOTE | 2019-04-07 18:48 | IPNPDOC ---
Text Note Date of Service The patient was seen on 04/07/19. NOTE Subjective: -No abdominal pain, fever, chills, chest pain or palpitations -Shortness of breath without hypoxemia continues to improve and feels that his puffiness is also improving Interim events: -responded well to lasix 80 IV yesterday making 550cc of urine in 8h ROS: -10 point ROS was otherwise negative, except noted above. Objective: Vitals: Hemodynamically stable and afebrile, see below General: Severe kyphoscoliosis, otherwise in NAD HEENT: NCAT, PERRLA, EOMI, MMM Neck: Supple Pulm: wet crackles at right>left basem otherwise clear and breathing comfortably on room air RRR: regular rate and rhythm Abd: Normoactive, soft, NTND Ext: chronic LE 2+ pitting edema to midshins, WWP Neuro: AOx3, moving all extremities, has severe kyphoscolisis Labs: Reviewed. Hgb stable, Cr improving now 1.31 74 years old man with advanced HFrEF, EF<25%, on chronic milrinone gtt, history of PE and recent TIA, chronic thrombocytopenia, this not on anticoagulation, recently on aspirin 325 mg who presented to the hospital with multiple episodes of painless hematochezia in the setting of a known history of hemorrhoids and diverticulosis, with CT A/P confirming them without evidence of inflammation, who was treated supportively with. His course has been c/b SOB without hypoxemia while on his baseline daily torsemide BID, declining UOP with a new BYRON with complicated determination of intravascular volume with elevated proBNP suggestive of volume overload now undergoing diuresis with IV lasix with cardiology onboard. Acute Lower GI bleed Status: Acute Problem Text: Most likely secondary to diverticulosis, without abdominal pain, with 2 point hgb drop. -continue holding aspirin 325 mg in the setting of a GI bleed -surgery not officially consulted, but did PONCHO Phillip over the weekend to infer if he warrants a transfer to [facility] given his significant cardiac history and he recommended keeping him as he predicted that the hemorrhoidal vs. diverticular bleed would be self limited and to hold giving fluids that may tip him into decompensated HF and give blood products instead if hypotensive. -s/p 1u pRBCs on 04/05 -Will continue to monitor H/H while inpatient, with plan for GI referral as outpatient, unless he has a brisk bleeding event and H/H drop will consult GI inpatient Advanced HFrEF Status: Chronic, Not in acute exacerbation -Continue milrinone drip switched for patient's pump to hospital gtt -discontinued his home torsemide 40 PO BID on 04/05 --> with resultant low UOP. Now on lasix 80 IV daily with improved UOP and improving Cr. -Cardiology onboard, spoke with Dr. Rice recommending that he will need some significant diuresis to get him close to euvolemia. -Borderline BP, if he needs more volume to give blood NOT fluids or titration of milrinone gtt -No fluids given advanced CHF and new SOB -Continue home cardioprotective medication CAD Status: Chronic -Continue home cardioprotective medications -Aspirin 325 mg on hold Recent Bacteremia, Resolved, completing course of antibiotics. 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 -will continue to monitor -renal US was wnl DVT ppx: None given recent GIB, on SCDs Diet: cardiac diet Dispo: PCU VS,Fishbone, I+O VS, Fishbone, I+O Laboratory Tests 04/07/19 07:51 Vital Signs Date Time Temp Pulse Resp B/P (MAP) Pulse Ox O2 Delivery O2 Flow Rate FiO2 04/07/19 18:23 87 101/55 (70) 04/07/19 16:00 97.6 22 100 Room Air I&O- Last 24 Hours up to 6 AM 04/07/19 06:00 Intake Total 970 ml Output Total 625 ml Balance 345 ml MUSA ORTA MD Apr 07, 2019 18:48
[2019-04-07] MEDS: CETIRIZINE (ZyrTEC) 10 MG TAB PO SCH (20:39)
[2019-04-07] MEDS: PRAVASTATIN 10 MG TAB PO SCH (20:39)
[2019-04-08] VITALS: BP 96/54
[2019-04-08] MEDS: ACETAMINOPHEN TAB 650MG DOSE (2X325MG) PO PRN ×2 (01:18→13:14)
[2019-04-08 04:00] VITALS: BP 103/58
[2019-04-08] MEDS: MILRINONE/DEXTROSE 20 MG in IV 1 EA IV SCH ×2 (04:33→17:51)
[2019-04-08] MEDS: SODIUM CHLORIDE 0.9% INJ 10 ML SYR IV SCH ×2 (06:04→12:15)
[2019-04-08 06:08] LABS: HEMATOCRIT 32.2 % (42.0-52.0); HEMOGLOBIN 10.3 g/dl (13.5-17.5); MEAN CORPUSCULAR HEMOGLOBIN 33.1 pg (27.0-33.0); MEAN CORPUSCULAR VOLUME 103.5 fl (80.0-96.0); PLATELET COUNT, AUTOMATED 172 10^3/uL (150-450); RED BLOOD COUNT 3.11 10^6/uL (4.30-6.10); WHITE BLOOD COUNT 4.1 10^3/uL (4.0-10.0)
[2019-04-08 06:25] LABS: BLOOD UREA NITROGEN 45 MG/DL (7-18); CALCIUM LEVEL 8.1 MG/DL (8.8-10.2); CARBON DIOXIDE LEVEL 30 MEQ/L (21-32); CHLORIDE LEVEL 103 MEQ/L (98-107); CREATININE FOR GFR 0.95 MG/DL (0.70-1.30); GLOMERULAR FILTRATION RATE > 60.0 (>42); GLUCOSE, FASTING 94 MG/DL (70-100); MAGNESIUM LEVEL 2.4 MG/DL (1.8-2.4); POTASSIUM SERUM 3.7 MEQ/L (3.5-5.1); SODIUM LEVEL 139 MEQ/L (136-145)
[2019-04-08 07:48] VITALS: BP 101/59
--- NOTE | 2019-04-08 08:27 | IPN ---
DATE: Mr. Flores is not feeling any different than yesterday, he is still quite short of breath even at rest but certainly did not deteriorate any. Denies any chest pain or palpitations. On telemetry there have not been any significant arrhythmias other than occasional premature ventricular contractions (PVCs) or couplet. Vital signs this morning - blood pressure 103/57, heart rate has been in 70s and 80s. He is afebrile. Saturation 97%. His fluid balance yesterday was recorded about 200 positive but he made about 1400 mL of urine and the weight is down 48.3. His jugular venous pulse (JVP) is still rigoberto high at least 7 or 8 cm above clavicle. 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 I do not appreciate any wheezing, crackles or rhonchi though. Heart exam reveals regular rhythm. There is positive gallop, no murmur. Abdomen is soft, nontender. There is still 2 to 3+ peripheral edema. LABORATORY: Basic metabolic panel - sodium 139, potassium 3.7, BUN 45, creatinine 0.95 and glucose 94. CBC - hemoglobin 10.3, hematocrit 33, platelet count 172,000. ASSESSMENT AND PLAN: Mr. Flores is a 74-year-old man who has advanced nonischemic cardiomyopathy with severe left ventricular systolic dysfunction. He was found not to be a candidate for either LVAD or ICD or heart transplant. Currently he has been on milrinone drip. He is still grossly volume overloaded and we should continue diuresis. I am encouraged by improvement of renal function over last few days. At this point I think that we can introduce spironolactone to his regimen for some potassium saving properties and also for additional benefit.
[2019-04-08] MEDS: OMEPRAZOLE 20 MG CAP PO SCH ×2 (09:08→20:43)
[2019-04-08] MEDS: MAGNESIUM OXIDE 400 MG TAB (MAG-OX) PO SCH (09:08)
[2019-04-08] MEDS: VITAMIN D 1,000 INTERNATIONAL UNITS TABLET PO SCH (09:08)
[2019-04-08] MEDS: MULTIVITAMINS/MINERALS THERAP 1 TAB PO SCH (09:08)
[2019-04-08] MEDS: SPIRONOLACTONE 12.5MG PER 1/2 TABLET PO SCH (09:09)
[2019-04-08] MEDS: POTASSIUM CHLORIDE 10 MEQ XX SCH ×2 (09:09→20:44)
[2019-04-08 12:00] VITALS: BP 108/58
[2019-04-08] MEDS ORDERED: FUROSEMIDE 40 MG/4 ML VIAL (J1940) IV SCH (12:00)
--- NOTE | 2019-04-08 15:52 | IPNPDOC ---
Text Note Date of Service The patient was seen on 04/08/19. NOTE Subjective: -No abdominal pain, fever, chills, chest pain or palpitations -Shortness of breath persists, without hypoxemia, feels the same as yesterday otherwise Interim events: -improving Cr with diuresis Objective: Vitals: Hemodynamically stable and afebrile, see below General: Severe kyphoscoliosis, otherwise in NAD HEENT: NCAT, PERRLA, EOMI, MMM Neck: Supple Pulm: wet crackles at right>left base, tachypneic, otherwise on room air RRR: regular rate and rhythm Abd: Normoactive, soft, NTND Ext: chronic LE 2+ pitting edema to thighs, WWP Neuro: AOx3, moving all extremities, has severe kyphoscolisis Labs: Reviewed. Hgb with stable anemia, Cr improving now 10.95 74 years old man with advanced non ischemic HFrEF, EF<25%, on chronic milrinone gtt, history of PE and recent TIA, chronic thrombocytopenia, thus not on anticoagulation, recently placed on aspirin 325 mg who presented to the hospital with multiple episodes of painless hematochezia in the setting of a known history of hemorrhoids and diverticulosis, with CT A/P confirming them without evidence of inflammation, who was treated supportively. His course has been c/b SOB without hypoxemia while on his baseline daily torsemide BID, with low UOP and a new BYRON now improving with diuresis with IV lasix with cardiology onboard. Acute Lower GI bleed Status: Acute Problem Text: Most likely secondary to diverticulosis, without abdominal pain, with 2 point hgb drop. -continue holding aspirin 325 mg in the setting of a GI bleed -surgery not officially consulted, but did FYI Dr. Phillip over the weekend to infer if he warrants a transfer to [facility] given his significant cardiac history and he recommended keeping him as he predicted that the hemorrhoidal vs. diverticular bleed would be self limited and to hold giving fluids that may tip him into decompensated HF and give blood products instead if hypotensive. -s/p 1u pRBCs on 04/05 -Will continue to monitor H/H while inpatient, with plan for GI referral as outpatient, unless he has a brisk bleeding event and H/H drop will consult GI inpatient Advanced HFrEF Status: Chronic, Not in acute exacerbation -Continue milrinone drip switched for patient's pump to hospital gtt -discontinued his home torsemide 40 PO BID on 04/05 --> with resultant low UOP. Now on lasix 80 IV daily with improved UOP and improving Cr. -Cardiology onboard, recommending significant diuresis for his volume overload -Borderline BP, if he needs more volume to give blood NOT fluids or titration of milrinone gtt -No fluids given advanced CHF and new SOB -Continue home cardioprotective medication CAD Status: Chronic -Continue home cardioprotective medications -Aspirin 325 mg on hold Recent Bacteremia, Resolved, completing course of antibiotics. 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 BYRON was a result of congestive cardiorenal etiology. -will continue to monitor -renal US was wnl DVT ppx: None given recent GIB, on SCDs Diet: cardiac diet Dispo: PCU VS,Fishbone, I+O VS, Fishbone, I+O Laboratory Tests 04/08/19 05:30 Vital Signs Date Time Temp Pulse Resp B/P (MAP) Pulse Ox O2 Delivery O2 Flow Rate FiO2 04/08/19 12:00 98.6 80 24 108/58 (75) 96 NIPPV (BIPAP/CPAP) I&O- Last 24 Hours up to 6 AM 04/08/19 06:00 Intake Total 1130 ml Output Total 950 ml Balance 180 ml MUSA ORTA MD Apr 08, 2019 15:52
[2019-04-08 16:00] VITALS: BP 93/54
[2019-04-08 20:00] VITALS: BP 100/59
[2019-04-08] MEDS ORDERED: metOLazone 2.5 MG TAB PO ONE (20:00)
[2019-04-08] MEDS ORDERED: FUROSEMIDE 40 MG/4 ML VIAL (J1940) IV ONE (20:00)
[2019-04-08] MEDS: CETIRIZINE (ZyrTEC) 10 MG TAB PO SCH (20:43)
[2019-04-08] MEDS: PRAVASTATIN 10 MG TAB PO SCH (20:43)
[2019-04-09] VITALS: BP 98/55
[2019-04-09] MEDS: ACETAMINOPHEN TAB 650MG DOSE (2X325MG) PO PRN (03:52)
[2019-04-09 04:00] VITALS: BP 90/51
[2019-04-09 05:23] LABS: HEMATOCRIT 33.6 % (42.0-52.0); HEMOGLOBIN 10.3 g/dl (13.5-17.5); MEAN CORPUSCULAR HEMOGLOBIN 32.5 pg (27.0-33.0); MEAN CORPUSCULAR HGB CONC 30.7 g/dl (32.0-36.5); PLATELET COUNT, AUTOMATED 170 10^3/uL (150-450); RED BLOOD COUNT 3.17 10^6/uL (4.30-6.10)
[2019-04-09 05:40] LABS: BLOOD UREA NITROGEN 44 MG/DL (7-18); CALCIUM LEVEL 8.3 MG/DL (8.8-10.2); CARBON DIOXIDE LEVEL 34 MEQ/L (21-32); CHLORIDE LEVEL 101 MEQ/L (98-107); CREATININE FOR GFR 0.81 MG/DL (0.70-1.30); GLOMERULAR FILTRATION RATE > 60.0 (>42); GLUCOSE, FASTING 95 MG/DL (70-100); MAGNESIUM LEVEL 2.1 MG/DL (1.8-2.4); POTASSIUM SERUM 3.5 MEQ/L (3.5-5.1); SODIUM LEVEL 140 MEQ/L (136-145)
[2019-04-09] MEDS: SODIUM CHLORIDE 0.9% INJ 10 ML SYR IV SCH ×2 (05:49→18:00)
[2019-04-09 07:19] VITALS: BP 93/51
[2019-04-09] MEDS: MILRINONE/DEXTROSE 20 MG in IV 1 EA IV SCH ×2 (07:46→17:59)
[2019-04-09] MEDS ORDERED: FUROSEMIDE 100 MG/10 ML VIAL (J1940) IV SCH (08:00)
--- NOTE | 2019-04-09 08:36 | IPN ---
DATE: 04/09/2019 Mr. Flores feels about the same as yesterday. He still gets short of breath with fairly minimal activity and he still has a fair amount of peripheral edema. Yesterday evening Dr. Adams gave him a single dose of metolazone that help diuresis, but unfortunately his urine output was not particularly well documented. His weight this morning is 48.2 kg which is essentially the same as yesterday. Otherwise, blood pressure is 92/51. Heart rate has been 80s, sinus rhythm. Saturation 96% on room air. He is alert and oriented and appropriate. His jugular venous pulse (JVP) is still very high, at least 7-8 or more centimeters above the clavicle. Lungs are relatively clear. Heart exam reveals regular rhythm with positive gallop. Abdomen is soft. Extremities have 2+ edema. LABORATORIES: Basic metabolic panel is normal, but for potassium of 3.5. CBC reveals hemoglobin of 10.3, hematocrit 53 and platelet count 170,000. ASSESSMENT/PLAN: Mr. Flores is a 74-year-old man who has severe nonischemic cardiomyopathy who presented with GI bleed, but his dominant complaint and problem currently is severe systolic congestive heart failure that is acute on chronic. We are struggling with management because he has baseline low blood pressure. He is currently on milrinone drip and already on a fairly high dose. I am going to give him furosemide in a higher dose, 80 mg three times a day, together with low-dose spironolactone and will add potassium supplementation. Hopefully, it will help some diuresis. I think we should take the opportunity of him being in the hospital to make him as dry as possible and we have a long way to go. Unfortunately, his overall prognosis is not good. We touched on it again today. Dr. Adams coverage returns tomorrow. [facility] CENTERMarcin
[2019-04-09] MEDS: POTASSIUM CHLORIDE 10 MEQ SR TABLET PO SCH ×2 (09:00→10:20)
[2019-04-09] MEDS: SPIRONOLACTONE 12.5MG PER 1/2 TABLET PO SCH ×2 (09:00→10:21)
[2019-04-09] MEDS ORDERED: FUROSEMIDE 40 MG/4 ML VIAL (J1940) IV SCH (10:00)
[2019-04-09] MEDS ORDERED: metOLazone 2.5 MG TAB PO ONE (10:00)
[2019-04-09] MEDS: MULTIVITAMINS/MINERALS THERAP 1 TAB PO SCH (10:20)
[2019-04-09] MEDS: OMEPRAZOLE 20 MG CAP PO SCH ×2 (10:20→21:52)
[2019-04-09] MEDS: VITAMIN D 1,000 INTERNATIONAL UNITS TABLET PO SCH (10:21)
[2019-04-09] MEDS: DIGOXIN 0.125 MG TAB PO SCH (10:21)
[2019-04-09] MEDS: MAGNESIUM OXIDE 400 MG TAB (MAG-OX) PO SCH (10:21)
[2019-04-09] MEDS: POTASSIUM CHLORIDE 10 MEQ XX SCH ×2 (10:24→21:53)
--- NOTE | 2019-04-09 11:50 | IPNPDOC ---
Text Note Date of Service The patient was seen on 04/09/19. NOTE Subjective: -Shortness of breath persists -No abdominal pain, fever, chills, chest pain or palpitations Interim events: -improving Cr with diuresis, yesterday received 40mg IV x 2, metolazone 2.5. Was started on aldactone 12.5 as well Objective: Vitals: Hemodynamically stable and afebrile, see below General: Severe kyphoscoliosis, otherwise in NAD HEENT: NCAT, PERRLA, EOMI, MMM Neck: Supple Pulm: wet crackles at right>left base, tachypneic, otherwise on room air RRR: regular rate and rhythm Abd: Normoactive, soft, NTND Ext: chronic LE 2+ pitting edema to thighs, WWP Neuro: AOx3, moving all extremities, has severe kyphoscolisis Labs: Reviewed. Hgb with stable anemia, Cr improving now 0.81 74 years old man with advanced non ischemic HFrEF, EF<25%, on chronic milrinone gtt, history of PE and recent TIA, chronic thrombocytopenia, thus not on anticoagulation, recently placed on aspirin 325 mg who presented to the hospital with multiple episodes of painless hematochezia in the setting of a known history of hemorrhoids and diverticulosis, with CT A/P confirming them without evidence of inflammation, who was treated supportively. His course has been c/b SOB without hypoxemia while on his baseline daily torsemide BID, with low UOP and a new BYORN now improving with diuresis with IV lasix with cardiology onboard. Acute Lower GI bleed Status: Acute Problem Text: Most likely secondary to diverticulosis, without abdominal pain, with 2 point hgb drop. -continue holding aspirin 325 mg in the setting of a GI bleed -surgery not officially consulted, but did PONCHO Phillip over the weekend to infer if he warrants a transfer to [facility] given his significant cardiac history and he recommended keeping him as he predicted that the hemorrhoidal vs. diverticular bleed would be self limited and to hold giving fluids that may tip him into decompensated HF and give blood products instead if hypotensive. -s/p 1u pRBCs on 04/05 -Will continue to monitor H/H while inpatient, with plan for GI referral as outpatient, unless he has a brisk bleeding event and H/H drop will consult GI inpatient Advanced HFrEF Status: Chronic, Not in acute exacerbation -Continue milrinone drip switched for patient's pump to hospital gtt -discontinued his home torsemide 40 PO BID on 04/05 --> with resultant low UOP. Getting daily lasix, yesteday got lasix 40 IV twice and metolazone 2.5mg, improving Cr. -Today will get lasix 80 IV Q8H. -Cardiology onboard, recommending significant diuresis for his volume overload -Borderline BP, if he needs more volume to give blood NOT fluids or titration of milrinone gtt -No fluids given advanced CHF and new SOB -Continue home cardioprotective medication, and added aldactone 12.5 CAD Status: Chronic -Continue home cardioprotective medications -Aspirin 325 mg on hold Recent Bacteremia, Resolved, completing course of antibiotics. 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 BYRON was a result of congestive cardiorenal etiology. -will continue to monitor -renal US was wnl DVT ppx: None given recent GIB, on SCDs Diet: cardiac diet Dispo: PCU VS,Fishbone, I+O VS, Fishbone, I+O Laboratory Tests 04/09/19 04:53 Vital Signs Date Time Temp Pulse Resp B/P (MAP) Pulse Ox O2 Delivery O2 Flow Rate FiO2 04/09/19 07:19 98.5 80 24 93/51 (65) 93 Room Air I&O- Last 24 Hours up to 6 AM 04/09/19 06:00 Intake Total 1200 ml Output Total 800 ml Balance 400 ml MUSA ORTA MD Apr 09, 2019 08:23
[2019-04-09 12:00] VITALS: BP 97/54
[2019-04-09] MEDS: SODIUM CHLORIDE 0.9% INJ 10 ML SYR IV PRN (15:50)
[2019-04-09] MEDS: DAPTOmycin 500 MG in NS 50 ML IV SCH (15:51)
[2019-04-09] MEDS: FUROSEMIDE 40 MG/4 ML VIAL (J1940) IV SCH ×2 (15:51→21:52)
[2019-04-09 16:00] VITALS: BP 100/55
[2019-04-09 20:00] VITALS: BP 90/80
[2019-04-09] MEDS: CETIRIZINE (ZyrTEC) 10 MG TAB PO SCH (21:52)
[2019-04-09] MEDS: PRAVASTATIN 10 MG TAB PO SCH (21:52)
[2019-04-10] VITALS: BP 95/57
[2019-04-10] MEDS: ACETAMINOPHEN TAB 650MG DOSE (2X325MG) PO PRN (01:14)
[2019-04-10 04:00] VITALS: BP 90/56
[2019-04-10] MEDS: FUROSEMIDE 40 MG/4 ML VIAL (J1940) IV SCH ×4 (05:16→21:44)
[2019-04-10] MEDS: SODIUM CHLORIDE 0.9% INJ 10 ML SYR IV SCH ×2 (05:17→17:53)
[2019-04-10 06:09] LABS: HEMATOCRIT 34.1 % (42.0-52.0); HEMOGLOBIN 10.9 g/dl (13.5-17.5); MEAN CORPUSCULAR HEMOGLOBIN 33.6 pg (27.0-33.0); MEAN CORPUSCULAR VOLUME 105.2 fl (80.0-96.0); PLATELET COUNT, AUTOMATED 185 10^3/uL (150-450); RED BLOOD COUNT 3.24 10^6/uL (4.30-6.10); WHITE BLOOD COUNT 4.1 10^3/uL (4.0-10.0)
[2019-04-10 06:31] LABS: BLOOD UREA NITROGEN 41 MG/DL (7-18); CARBON DIOXIDE LEVEL 35 MEQ/L (21-32); CHLORIDE LEVEL 98 MEQ/L (98-107); CREATININE FOR GFR 0.82 MG/DL (0.70-1.30); GLOMERULAR FILTRATION RATE > 60.0 (>42); GLUCOSE, FASTING 104 MG/DL (70-100); MAGNESIUM LEVEL 2.1 MG/DL (1.8-2.4); POTASSIUM SERUM 3.4 MEQ/L (3.5-5.1); SODIUM LEVEL 139 MEQ/L (136-145)
[2019-04-10 08:00] VITALS: BP 95/54
--- NOTE | 2019-04-10 08:12 | IPN ---
DATE: 04/10/2019 Mr. Manuel Flores is feeling a little bit better. He feels slightly less short of breath and he feels that the peripheral edema has diminished slightly. He still feels profoundly tired and even talking longer sentences he is visibly short of breath. VITAL SIGNS: Blood pressure 90/56. Heart rate has been in 60s. He is afebrile. Saturation 96% on room air. Fluid balance yesterday was recorded as negative 900. He put out over 2 liters of urine but weight is unchanged at 48.4 kg. He is alert and oriented appropriate. His jugular venous pulse (JVP) is still very high at least 7, 8, 10 cm above clavicle. Lungs are reasonably clear though, even though with his severe thoracic deformity it is difficult to assess. Heart exam reveals regular tachycardia. I do not appreciate gallop or murmur. Abdomen is soft. There is still 2+ edema to his knees. LABORATORY DATA: Hemoglobin 10.9, hematocrit 34, platelet count 185,000. Basic metabolic panel: Sodium 139, potassium 3.4, BUN 41, creatinine 0.8, and glucose 104. ASSESSMENT AND PLAN: Mr. Flores is a 74-year-old man who has post-polio syndrome and severe cardiomyopathy together with restrictive lung disease. He presented with gastrointestinal (GI) bleed but now we are dealing mostly with acute on chronic systolic congestive heart failure. He in the last few days seemed to have accomplish some diuresis even though his weight is not appreciably changed. I would continue the same because he is becoming hypokalemic. I will increase the dose of spironolactone and potassium supplementation.
[2019-04-10] MEDS: SPIRONOLACTONE 25 MG TAB PO SCH (08:17)
[2019-04-10] MEDS: POTASSIUM CHLORIDE 10 MEQ XX SCH ×2 (09:00→20:38)
[2019-04-10] MEDS ORDERED: metOLazone 2.5 MG TAB PO ONE (09:30)
[2019-04-10] MEDS ORDERED: POTASSIUM CHLORIDE 10 MEQ SR TABLET PO ONE (09:30)
[2019-04-10] MEDS: MAGNESIUM OXIDE 400 MG TAB (MAG-OX) PO SCH (10:17)
[2019-04-10] MEDS: OMEPRAZOLE 20 MG CAP PO SCH ×2 (10:18→20:36)
[2019-04-10] MEDS: VITAMIN D 1,000 INTERNATIONAL UNITS TABLET PO SCH (10:18)
[2019-04-10] MEDS: MULTIVITAMINS/MINERALS THERAP 1 TAB PO SCH (10:18)
--- NOTE | 2019-04-10 10:43 | IPNPDOC ---
Text Note Date of Service The patient was seen on 04/10/19. NOTE Subjective: -With persisting SOB and PRN BiPAP during the day and QHS -No abdominal pain, fever, chills, chest pain or palpitations Interim events: -Cr normalized with diuresis, yesterday received 40mg IV x 3, Aldactone held Objective: Vitals: Hemodynamically stable and afebrile, see below General: Severe kyphoscoliosis, otherwise in NAD HEENT: NCAT, PERRLA, EOMI, MMM Neck: Supple Pulm: wet crackles at right>left base, tachypneic, otherwise on room air RRR: regular rate and rhythm Abd: Normoactive, soft, NTND Ext: chronic LE 2+ pitting edema to thighs, WWP Neuro: AOx3, moving all extremities, has severe kyphoscolisis Labs: Reviewed. Hgb with stable anemia, Cr 0.82, K3.4 74 years old man with advanced non ischemic HFrEF, EF<25%, on chronic milrinone gtt, history of PE and recent TIA, chronic thrombocytopenia, thus not on anticoagulation, recently placed on aspirin 325 mg who presented to the hospital with multiple episodes of painless hematochezia in the setting of a known history of hemorrhoids and diverticulosis, with CT A/P confirming them without evidence of inflammation, who was treated supportively. His course has been c/b SOB without hypoxemia while on his baseline daily torsemide BID, with low UOP and a new BYRON now improving with diuresis with IV lasix with cardiology onboard. Acute Lower GI bleed Status: Acute Problem Text: Most likely secondary to diverticulosis, without abdominal pain, with 2 point hgb drop. -continue holding aspirin 325 mg in the setting of a GI bleed -surgery not officially consulted, but did PONCHO Phillip over the weekend to infer if he warrants a transfer to [facility] given his significant cardiac history and he recommended keeping him as he predicted that the hemorrhoidal vs. diverticular bleed would be self limited and to hold giving fluids that may tip him into decompensated HF and give blood products instead if hypotensive. -s/p 1u pRBCs on 04/05 -Will continue to monitor H/H while inpatient, with plan for GI referral as outpatient, unless he has a brisk bleeding event and H/H drop will consult GI inpatient Advanced HFrEF Status: Chronic, Not in acute exacerbation -Continue milrinone drip switched for patient's pump to hospital gtt -discontinued his home torsemide 40 PO BID on 04/05 --> with resultant low UOP. Getting daily lasix. -Today will get lasix 40 IV Q6H per cardiology. -Cardiology onboard, recommending significant diuresis for his volume overload -Borderline BP, if he needs more volume to give blood NOT fluids or titration of milrinone gtt -No fluids given advanced CHF and new SOB -Continue home cardioprotective medication, holding aldactone as BPs not tolerating during aggressive diuresis CAD Status: Chronic -Continue home cardioprotective medications -Aspirin 325 mg on hold Recent Bacteremia, Resolved, completing course of antibiotics. 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 -will continue to monitor -renal US was wnl DVT ppx: None given recent GIB, on SCDs Diet: cardiac diet Dispo: PCU VS,Fishbone, I+O VS, Fishbone, I+O Laboratory Tests 04/10/19 05:36 Vital Signs Date Time Temp Pulse Resp B/P (MAP) Pulse Ox O2 Delivery O2 Flow Rate FiO2 04/10/19 04:00 98.3 64 19 90/56 (67) 96 Room Air I&O- Last 24 Hours up to 6 AM 04/10/19 06:00 Intake Total 1000 ml Output Total 1875 ml Balance -875 ml MUSA ORTA MD Apr 10, 2019 09:23
[2019-04-10 12:00] VITALS: BP 100/58
[2019-04-10 16:00] VITALS: BP 94/52
[2019-04-10] MEDS: MILRINONE/DEXTROSE 20 MG in IV 1 EA IV SCH ×2 (17:53→20:36)
[2019-04-10 20:00] VITALS: BP 101/56
[2019-04-10] MEDS: PRAVASTATIN 10 MG TAB PO SCH (20:36)
[2019-04-10] MEDS: CETIRIZINE (ZyrTEC) 10 MG TAB PO SCH (20:36)
[2019-04-11] VITALS: BP 102/59
[2019-04-11] MEDS: FUROSEMIDE 40 MG/4 ML VIAL (J1940) IV SCH ×4 (03:44→21:13)
[2019-04-11 04:00] VITALS: BP 92/50
[2019-04-11 05:02] LABS: HEMATOCRIT 36.5 % (42.0-52.0); HEMOGLOBIN 11.1 g/dl (13.5-17.5); MEAN CORPUSCULAR HEMOGLOBIN 32.2 pg (27.0-33.0); MEAN CORPUSCULAR HGB CONC 30.4 g/dl (32.0-36.5); MEAN CORPUSCULAR VOLUME 105.8 fl (80.0-96.0); PLATELET COUNT, AUTOMATED 201 10^3/uL (150-450); RED BLOOD COUNT 3.45 10^6/uL (4.30-6.10); WHITE BLOOD COUNT 4.3 10^3/uL (4.0-10.0)
[2019-04-11] MEDS: ACETAMINOPHEN TAB 650MG DOSE (2X325MG) PO PRN (05:25)
[2019-04-11] MEDS: SODIUM CHLORIDE 0.9% INJ 10 ML SYR IV SCH ×2 (05:25→17:04)
[2019-04-11 05:32] LABS: BLOOD UREA NITROGEN 43 MG/DL (7-18); CALCIUM LEVEL 8.7 MG/DL (8.8-10.2); CARBON DIOXIDE LEVEL 33 MEQ/L (21-32); CHLORIDE LEVEL 96 MEQ/L (98-107); CREATININE FOR GFR 0.72 MG/DL (0.70-1.30); GLOMERULAR FILTRATION RATE > 60.0 (>42); GLUCOSE, FASTING 90 MG/DL (70-100); MAGNESIUM LEVEL 2.1 MG/DL (1.8-2.4); POTASSIUM SERUM 3.1 MEQ/L (3.5-5.1); SODIUM LEVEL 138 MEQ/L (136-145)
[2019-04-11] MEDS ORDERED: POTASSIUM CHLORIDE 40 MEQ PO ONE (06:00)
[2019-04-11 08:00] VITALS: BP 98/62
[2019-04-11] MEDS: VITAMIN D 1,000 INTERNATIONAL UNITS TABLET PO SCH (08:45)
[2019-04-11] MEDS: MAGNESIUM OXIDE 400 MG TAB (MAG-OX) PO SCH (08:46)
[2019-04-11] MEDS: MULTIVITAMINS/MINERALS THERAP 1 TAB PO SCH (08:46)
[2019-04-11] MEDS: DIGOXIN 0.125 MG TAB PO SCH (08:46)
[2019-04-11] MEDS: OMEPRAZOLE 20 MG CAP PO SCH ×2 (08:46→21:13)
[2019-04-11] MEDS: POTASSIUM CHLORIDE 10 MEQ XX SCH ×2 (08:46→21:13)
[2019-04-11] MEDS ORDERED: POTASSIUM CHLORIDE 10 MEQ SR TABLET PO ONE (09:00)
[2019-04-11] MEDS: SPIRONOLACTONE 25 MG TAB PO SCH (09:00)
[2019-04-11] MEDS: MILRINONE/DEXTROSE 20 MG in IV 1 EA IV SCH (09:46)
[2019-04-11 12:00] VITALS: BP 102/64
--- NOTE | 2019-04-11 12:42 | IPNPDOC ---
Text Note Date of Service The patient was seen on 04/11/19. NOTE Subjective: -With persisting SOB and PRN BiPAP during the day and QHS -No abdominal pain, fever, chills, chest pain or palpitations Interim events: -Cr normalized with diuresis, yesterday received 40mg IV x 3, Aldactone held Objective: Vitals: Hemodynamically stable and afebrile, see below General: Severe kyphoscoliosis, otherwise in NAD HEENT: NCAT, PERRLA, EOMI, MMM Neck: Supple Pulm: wet crackles at right>left base, tachypneic, otherwise on room air RRR: regular rate and rhythm Abd: Normoactive, soft, NTND Ext: chronic LE 2+ pitting edema to thighs, WWP Neuro: AOx3, moving all extremities, has severe kyphoscolisis Labs: Reviewed. Hgb with stable anemia, Cr 0.72, K 3.1 74 years old man with advanced non ischemic HFrEF, EF<25%, on chronic milrinone gtt, history of PE and recent TIA, chronic thrombocytopenia, thus not on anticoagulation, recently placed on aspirin 325 mg who presented to the hospital with multiple episodes of painless hematochezia in the setting of a known history of hemorrhoids and diverticulosis, with CT A/P confirming them without evidence of inflammation, who was treated supportively. His course has been c/b SOB without hypoxemia while on his baseline daily torsemide BID, with low UOP and a new BYRON now improving with diuresis with IV lasix with cardiology onboard. Acute Lower GI bleed Status: Acute Problem Text: Most likely secondary to diverticulosis, without abdominal pain, with 2 point hgb drop. -continue holding aspirin 325 mg in the setting of a GI bleed -surgery not officially consulted, but did PONCHO Phillip over the weekend to infer if he warrants a transfer to [facility] given his significant cardiac history and he recommended keeping him as he predicted that the hemorrhoidal vs. diverticular bleed would be self limited and to hold giving fluids that may tip him into decompensated HF and give blood products instead if hypotensive. -s/p 1u pRBCs on 04/05 -Will continue to monitor H/H while inpatient, with plan for GI referral as outpatient, unless he has a brisk bleeding event and H/H drop will consult GI inpatient Acute on chronic advanced HFrEF: Status: Acute on chronic -Continue milrinone drip switched for patient's pump to hospital gtt -Initially discontinued his home torsemide 40 PO BID on 04/05 in the setting of the GIB --> with resultant low UOP. Now getting daily lasix. -Today will get lasix 40 IV Q6H per cardiology recs. -Cardiology onboard, recommending significant diuresis for his volume overload -Borderline BP, if he needs more volume to give blood NOT fluids or titration of milrinone gtt -No fluids given advanced CHF and new SOB -Continue home cardioprotective medication, was started on aldactone 25mg daily, but will assess if BPs will tolerate during aggressive diuresis CAD Status: Chronic -Continue home cardioprotective medications -Aspirin 325 mg on hold Recent Bacteremia, Resolved, completing course of antibiotics. 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 -will continue to monitor -renal US was wnl DVT ppx: None given recent GIB, on SCDs Diet: cardiac diet Dispo: PCU VS,Fishbone, I+O VS, Fishbone, I+O Laboratory Tests 04/11/19 04:50 Vital Signs Date Time Temp Pulse Resp B/P (MAP) Pulse Ox O2 Delivery O2 Flow Rate FiO2 04/11/19 08:46 76 04/11/19 08:00 97.8 18 98/62 (74) 96 Room Air I&O- Last 24 Hours up to 6 AM 04/11/19 06:00 Intake Total 1260 ml Output Total 1975 ml Balance -715 ml MUSA ORTA MD Apr 11, 2019 09:07
[2019-04-11] MEDS: DAPTOmycin 500 MG in NS 50 ML IV SCH (15:19)
[2019-04-11] MEDS ORDERED: metOLazone 2.5 MG TAB PO ONE (15:30)
[2019-04-11 16:00] VITALS: BP 111/58
[2019-04-11 20:00] VITALS: BP 96/51
[2019-04-11] MEDS: PRAVASTATIN 10 MG TAB PO SCH (21:13)
[2019-04-11] MEDS: CETIRIZINE (ZyrTEC) 10 MG TAB PO SCH (21:13)
[2019-04-11] MEDS: SODIUM CHLORIDE 0.9% INJ 10 ML SYR IV PRN (21:14)
[2019-04-12] VITALS (7 sets, daily range): BP systolic 92–112; BP diastolic 50–57
[2019-04-12] MEDS: MILRINONE/DEXTROSE 20 MG in IV 1 EA IV SCH (00:56)
[2019-04-12] MEDS: FUROSEMIDE 40 MG/4 ML VIAL (J1940) IV SCH ×4 (03:54→22:31)
[2019-04-12] MEDS: SODIUM CHLORIDE 0.9% INJ 10 ML SYR IV PRN ×2 (03:54→22:32)
[2019-04-12 05:20] LABS: HEMATOCRIT 35.3 % (42.0-52.0); MEAN CORPUSCULAR HEMOGLOBIN 32.8 pg (27.0-33.0); MEAN CORPUSCULAR HGB CONC 31.2 g/dl (32.0-36.5); MEAN CORPUSCULAR VOLUME 105.4 fl (80.0-96.0); PLATELET COUNT, AUTOMATED 213 10^3/uL (150-450); RED BLOOD COUNT 3.35 10^6/uL (4.30-6.10); WHITE BLOOD COUNT 4.4 10^3/uL (4.0-10.0)
[2019-04-12 05:43] LABS: BLOOD UREA NITROGEN 48 MG/DL (7-18); CALCIUM LEVEL 8.6 MG/DL (8.8-10.2); CARBON DIOXIDE LEVEL 34 MEQ/L (21-32); CHLORIDE LEVEL 95 MEQ/L (98-107); GLOMERULAR FILTRATION RATE > 60.0 (>42); GLUCOSE, FASTING 94 MG/DL (70-100); MAGNESIUM LEVEL 1.9 MG/DL (1.8-2.4); POTASSIUM SERUM 3.2 MEQ/L (3.5-5.1); SODIUM LEVEL 136 MEQ/L (136-145)
[2019-04-12] MEDS: SODIUM CHLORIDE 0.9% INJ 10 ML SYR IV SCH ×2 (05:46→17:12)
[2019-04-12] MEDS ORDERED: POTASSIUM CHLORIDE 10 MEQ SR TABLET PO ONE (08:45)
[2019-04-12] MEDS: SPIRONOLACTONE 25 MG TAB PO SCH (09:25)
[2019-04-12] MEDS: VITAMIN D 1,000 INTERNATIONAL UNITS TABLET PO SCH (09:27)
[2019-04-12] MEDS: OMEPRAZOLE 20 MG CAP PO SCH ×2 (09:27→21:07)
[2019-04-12] MEDS: MAGNESIUM OXIDE 400 MG TAB (MAG-OX) PO SCH (09:27)
[2019-04-12] MEDS: MULTIVITAMINS/MINERALS THERAP 1 TAB PO SCH (09:27)
[2019-04-12] MEDS: POTASSIUM CHLORIDE 10 MEQ XX SCH ×2 (09:28→21:07)
[2019-04-12] MEDS ORDERED: metOLazone 2.5 MG TAB PO ONE (10:00)
--- NOTE | 2019-04-12 14:06 | IPNPDOC ---
Text Note Date of Service The patient was seen on 04/12/19. NOTE Subjective: -No changes in breathing patterns with persisting shortness of breath -Complaining of dry skin and pruritus, brought in home lotion, got better Objective: Vitals: Hemodynamically stable and afebrile, see below General: Severe kyphoscoliosis, otherwise in NAD HEENT: NCAT, PERRLA, EOMI, MMM Neck: Supple Pulm: Resolved basilar crackles, CTAB, tachypneic, otherwise on room air RRR: regular rate and rhythm Abd: Normoactive, soft, NTND Ext: chronic LE 2+ pitting edema to thighs, WWP Neuro: AOx3, moving all extremities, has severe kyphoscolisis Labs: Reviewed. WBC 4.4 Hgb 11 Hct 35.5 Platelets 213 K 3.2 Cr 0.8 Mag 1.9 74 years old man with advanced non ischemic HFrEF, EF<25%, on chronic milrinone gtt, history of PE and recent TIA, chronic thrombocytopenia, thus not on anticoagulation, recently placed on aspirin 325 mg who presented to the hospital with multiple episodes of painless hematochezia in the setting of a known history of hemorrhoids and diverticulosis, with CT A/P confirming them without evidence of inflammation, who was treated supportively. His course has been c/b SOB without hypoxemia while on his baseline daily torsemide BID, with low UOP and a new BYRON now resolved with onoing diuresis with IV lasix with cardiology onboard. Acute Lower GI bleed Status: Acute Problem Text: Most likely secondary to diverticulosis, without abdominal pain, with 2 point hgb drop. -continue holding aspirin 325 mg in the setting of a GI bleed -surgery not officially consulted, but did FYI Dr. Phillip over the weekend to infer if he warrants a transfer to [facility] given his significant cardiac history and he recommended keeping him as he predicted that the hemorrhoidal vs. diverticular bleed would be self limited and to hold giving fluids that may tip him into decompensated HF and give blood products instead if hypotensive. -s/p 1u pRBCs on 04/05 -Will continue to monitor H/H while inpatient, with plan for GI referral as outpatient, unless he has a brisk bleeding event and H/H drop will consult GI inpatient Acute on chronic advanced HFrEF: Status: Acute on chronic -Continue milrinone ip switched for patient's pump to hospital gtt -Initially discontinued his home torsemide 40 PO BID on 04/05 in the setting of the GIB --> with resultant low UOP. Now getting daily lasix. -Today will continue lasix 40 IV Q6H and metolazone 2.5 per cardiology recs -Cardiology onboard, recommending significant diuresis for his volume overload -Borderline BP, if he needs more volume to give blood NOT fluids or titration of milrinone gtt -No fluids given advanced CHF and new SOB -Continue home cardioprotective medication, on aldactone 25mg daily, but to give if BPs will tolerate during aggressive diuresis CAD Status: Chronic -Continue home cardioprotective medications -Aspirin 325 mg on hold Recent Bacteremia, Resolved, completing course of antibiotics. 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 -will continue to monitor -renal US was wnl DVT ppx: None given recent GIB, on SCDs Diet: cardiac diet Dispo: PCU VS,Fishbone, I+O VS, Fishbone, I+O Laboratory Tests 04/12/19 05:08 Vital Signs Date Time Temp Pulse Resp B/P (MAP) Pulse Ox O2 Delivery O2 Flow Rate FiO2 04/12/19 04:00 99.0 77 20 94/50 (65) 94 Room Air I&O- Last 24 Hours up to 6 AM 04/12/19 06:00 Intake Total 780 ml Output Total 1125 ml Balance -345 ml MUSA ORTA MD Apr 12, 2019 08:48
[2019-04-12] MEDS: DAPTOmycin 500 MG in NS 50 ML IV SCH (15:16)
[2019-04-12] MEDS: PRAVASTATIN 10 MG TAB PO SCH (21:07)
[2019-04-12] MEDS: CETIRIZINE (ZyrTEC) 10 MG TAB PO SCH (21:07)
[2019-04-13] MEDS: MILRINONE/DEXTROSE 20 MG in IV 1 EA IV SCH ×2 (00:35→14:28)
[2019-04-13] MEDS ORDERED: diphenhydrAMINE CREAM 30GM TOP PRN (02:45)
[2019-04-13] MEDS ORDERED: diphenhydrAMINE INJ 50MG/ML VIAL (J1200) IV ONE (02:45)
[2019-04-13] MEDS ORDERED: diphenhydrAMINE 12.5MG/5ML ELIXIR UDC PO ONE (02:45)
[2019-04-13 04:00] VITALS: BP 99/53
[2019-04-13] MEDS: FUROSEMIDE 40 MG/4 ML VIAL (J1940) IV SCH ×4 (04:08→21:09)
[2019-04-13] MEDS: SODIUM CHLORIDE 0.9% INJ 10 ML SYR IV SCH ×2 (04:09→17:19)
[2019-04-13 05:46] LABS: HEMATOCRIT 34.9 % (42.0-52.0); HEMOGLOBIN 10.8 g/dl (13.5-17.5); MEAN CORPUSCULAR HEMOGLOBIN 32.8 pg (27.0-33.0); MEAN CORPUSCULAR HGB CONC 30.9 g/dl (32.0-36.5); MEAN CORPUSCULAR VOLUME 106.1 fl (80.0-96.0); PLATELET COUNT, AUTOMATED 229 10^3/uL (150-450); RED BLOOD COUNT 3.29 10^6/uL (4.30-6.10); WHITE BLOOD COUNT 3.9 10^3/uL (4.0-10.0)
[2019-04-13 05:54] LABS: BLOOD UREA NITROGEN 49 MG/DL (7-18); CALCIUM LEVEL 8.5 MG/DL (8.8-10.2); CARBON DIOXIDE LEVEL 36 MEQ/L (21-32); CHLORIDE LEVEL 95 MEQ/L (98-107); CREATININE FOR GFR 0.94 MG/DL (0.70-1.30); GLOMERULAR FILTRATION RATE > 60.0 (>42); GLUCOSE, FASTING 101 MG/DL (70-100); MAGNESIUM LEVEL 1.9 MG/DL (1.8-2.4); POTASSIUM SERUM 3.9 MEQ/L (3.5-5.1); SODIUM LEVEL 138 MEQ/L (136-145)
[2019-04-13 08:00] VITALS: BP 90/51
[2019-04-13] MEDS ORDERED: metOLazone 2.5 MG TAB PO ONE (08:15)
--- NOTE | 2019-04-13 08:19 | IPN ---
DATE: 04/13/2019 Mr. Flores feels a little bit better than he did before but he is still extremely short of breath with minimal activity. He managed to lose some weight but not very much. Denies any chest pain or sensation of palpitations. Telemetry monitoring reveals sinus rhythm with very rare ectopy. Vital signs this morning blood pressure 99/53, heart rate has been mostly in 70s and 80s. He is afebrile. Saturation was 95%. Fluid balance yesterday was recorded as positive 380, but yet his weight has declined. According to his bedside records, he made about 2 liters of urine and only about 700 mL was documented in the nursing chart. His jugular venous pulse (JVP) is still extremely high, at least 7, 8, 9 9 cm above clavicle, but lungs are relatively clear even though it is difficult to assess due to his extreme kyphoscoliosis. Heart exam reveals regular rhythm. I do not appreciate any murmur. Abdomen is soft. There is still about 2+ edema to about mid shins. Laboratory glover, basic metabolic panel is normal with potassium 3.9, BUN 49, creatinine 0.9, and glucose 101. CBC: Hemoglobin 10, hematocrit 34, platelet count 229,000. ASSESSMENT AND PLAN: Mr. Flores is a 74-year-old man who has restrictive lung disease together with nonischemic cardiomyopathy, severe left ventricular systolic dysfunction. He presented initially with gastrointestinal (GI) bleeding, but subsequently started having a problem with congestive heart failure as a dominant clinical issue. He still his volume overloaded in spite of very high doses of IV diuretics over last few days. He does not believe that he can go home in his current condition, and consequently, we will continue to attempt to diurese him some more. I am going to give him metolazone again today. So far his renal function is holding steady, but unfortunately low blood pressure does not allow us to introduce additional medications. I am afraid that his prognosis is not favorable to the point that even a short term survival may be questionable. If there is no improvement within next of couple days, we may need to address this issue is in more detail.
[2019-04-13] MEDS: SPIRONOLACTONE 25 MG TAB PO SCH (09:25)
[2019-04-13] MEDS: MULTIVITAMINS/MINERALS THERAP 1 TAB PO SCH (09:25)
[2019-04-13] MEDS: DIGOXIN 0.125 MG TAB PO SCH (09:26)
[2019-04-13] MEDS: VITAMIN D 1,000 INTERNATIONAL UNITS TABLET PO SCH (09:26)
[2019-04-13] MEDS: MAGNESIUM OXIDE 400 MG TAB (MAG-OX) PO SCH (09:26)
[2019-04-13] MEDS: OMEPRAZOLE 20 MG CAP PO SCH ×2 (09:26→21:09)
[2019-04-13] MEDS: POTASSIUM CHLORIDE 10 MEQ XX SCH ×2 (09:28→21:09)
[2019-04-13] MEDS: SODIUM CHLORIDE 0.9% INJ 10 ML SYR IV PRN (10:04)
[2019-04-13 12:03] VITALS: BP 99/55
[2019-04-13] MEDS: DAPTOmycin 500 MG in NS 50 ML IV SCH (15:23)
[2019-04-13 16:00] VITALS: BP 97/53
--- NOTE | 2019-04-13 17:45 | IPNPDOC ---
Date Seen The patient was seen on 04/13/19. Progress Note SUBJECTIVE: Patient reports no acute changes, noted chronic SOB. BP remains in 90s systolic. LE edema reportedly had improved from admission although persistent. OBJECTIVE PHYSICAL EXAMINATION: VITAL SIGNS: Please see below. General: No acute distress, Alert, weak, severe spinal scoliosis with thoracic deformity Eyes: Normal sclera HENT: Atraumatic Cardiovascular: Normal rate. 1-2+ pitting edema b/l. b/l ankle swelling. Pulmonary: mild basilar crackles GI: Soft, nontender, nondistended Skin: Warm and dry Neuro: CN grossly intact. No focal deficits. Generalized weakness Psych: oriented x 3 LABORATORY DATA, IMAGING STUDIES, MICROBIOLOGY: Please see below. DVT prophylaxis ordered?: SCD. hx recent GIB. ASSESSMENT AND PLAN: 1. Acute GI Bleed - suspect 2/2 diverticulosis with complaints of painless hematochezia. ASA 325 mg held at this time. - Is a significant surgical risk given cardiac function. - Hb had remained stable, will monitor at this time. - s/p 1 pRBC on 04/05. 2. Acute on chronic advanced HFrEF - Patient has been on Milrinone drip at home prior to presentation. - c/w home regimen. Cardiology also following and assisting with diuresis. - Cautious in diuresis given hypotention. - c/w home medications. 3. CAD - c/w home mediations apart from ASA 325mg on hold due to GIB. 4. Hx recent staph. lugdunensis bacteremia - s/p IV daptomycin completed 04/13. 5. Congestive cardiorenal BYRON - c/w monitoring. - Renal US WNL. Prognosis: Poor DISPOSITION: Home if/when stable. [facility] Vital Signs Date Time Temp Pulse Resp B/P (MAP) Pulse Ox O2 Delivery O2 Flow Rate FiO2 04/13/19 12:03 97.8 79 24 99/55 (70) 92 Room Air I&O- Last 24 Hours up to 6 AM 04/13/19 06:00 Intake Total 1116.5 ml Output Total 1275 ml Balance -158.5 ml Laboratory Data 24H LABS Laboratory Tests 2 04/13/19 05:08: Nucleated Red Blood Cells % (auto) 0.0, Anion Gap 7L, Glomerular Filtration Rate > 60.0, Calcium Level 8.5L, Magnesium Level 1.9 CBC/BMP Laboratory Tests 04/13/19 05:08 Microbiology Microbiology 04/13/19 Blood Culture, Received Pending TABATHA EAGLE MD Apr 13, 2019 17:45
[2019-04-13 20:00] VITALS: BP 90/60
[2019-04-13] MEDS: PRAVASTATIN 10 MG TAB PO SCH (21:09)
[2019-04-13] MEDS: CETIRIZINE (ZyrTEC) 10 MG TAB PO SCH (21:09)
[2019-04-14] VITALS: BP 98/60
[2019-04-14] MEDS: MILRINONE/DEXTROSE 20 MG in IV 1 EA IV SCH ×2 (03:40→16:12)
[2019-04-14] MEDS: FUROSEMIDE 40 MG/4 ML VIAL (J1940) IV SCH ×4 (03:52→21:10)
[2019-04-14 05:06] LABS: HEMATOCRIT 35.8 % (42.0-52.0); HEMOGLOBIN 11.1 g/dl (13.5-17.5); MEAN CORPUSCULAR VOLUME 106.5 fl (80.0-96.0); PLATELET COUNT, AUTOMATED 232 10^3/uL (150-450); RED BLOOD COUNT 3.36 10^6/uL (4.30-6.10); WHITE BLOOD COUNT 4.5 10^3/uL (4.0-10.0)
[2019-04-14 05:25] LABS: BLOOD UREA NITROGEN 51 MG/DL (7-18); CALCIUM LEVEL 8.7 MG/DL (8.8-10.2); CARBON DIOXIDE LEVEL 36 MEQ/L (21-32); CHLORIDE LEVEL 92 MEQ/L (98-107); CREATININE FOR GFR 0.73 MG/DL (0.70-1.30); GLOMERULAR FILTRATION RATE > 60.0 (>42); GLUCOSE, FASTING 90 MG/DL (70-100); MAGNESIUM LEVEL 1.8 MG/DL (1.8-2.4); POTASSIUM SERUM 3.4 MEQ/L (3.5-5.1); SODIUM LEVEL 135 MEQ/L (136-145)
[2019-04-14] MEDS: SODIUM CHLORIDE 0.9% INJ 10 ML SYR IV SCH (05:33)
[2019-04-14 08:00] VITALS: BP 96/58
[2019-04-14] MEDS ORDERED: POTASSIUM CHLORIDE 10 MEQ SR TABLET PO ONE (08:00)
[2019-04-14] MEDS: OMEPRAZOLE 20 MG CAP PO SCH ×2 (08:22→21:09)
[2019-04-14] MEDS: VITAMIN D 1,000 INTERNATIONAL UNITS TABLET PO SCH (08:22)
[2019-04-14] MEDS: MAGNESIUM OXIDE 400 MG TAB (MAG-OX) PO SCH (08:22)
[2019-04-14] MEDS: MULTIVITAMINS/MINERALS THERAP 1 TAB PO SCH (08:23)
[2019-04-14] MEDS: SPIRONOLACTONE 25 MG TAB PO SCH ×2 (08:23→16:01)
[2019-04-14] MEDS: POTASSIUM CHLORIDE 10 MEQ XX SCH ×2 (08:23→21:09)
--- NOTE | 2019-04-14 08:35 | IPN ---
DATE:04/14/2019 Mr. Flores feels about the same as yesterday. As I entered the room he was waking up. He had good urine output yesterday but documented in the chart as 1500 mL according to his . It was somewhat higher than that he denies any chest pain, shortness of breath is still present. Vital signs: Blood pressure 98/60, heart rate in 70s sinus rhythm. No significant ectopy last night. Saturation 95% on room air. Fluid balance recorded yesterday at negative 600 almost and already about 600 negative today. His JVP still high but not as high as yesterday. This is the first time that I do not see JVP, all the way to the to the jaw is probably what about 5-6 cm above clavicle. Lungs are reasonably clear again with his kyphoscoliosis difficult to compliance aide no wheezing or crackles. Heart: Exam reveals regular rhythm. No obvious gallop. Abdomen is soft, is still has edema on both feet and to a lesser degree also shins but I do appreciate a improvement since yesterday. LABORATORY: Potassium 3.4, BUN 51, creatinine 0.7 and glucose 90. CBC hemoglobin 11.1, hematocrit 35.8 platelet count 232,000 ASSESSMENT/PLAN: Mr. Flores is a 74-year-old man who has severe restrictive lung disease and also cardiomyopathy with both right and left-sided heart failure that is systolic in nature. He continues to struggle with congestive heart failure and continues to be volume overloaded. I am going to do increased the dose of spirolactone because he continues to be hypokalemic and I will give him a break from metolazone today but I do believe that he has been getting closer to euvolemic state. Hopefully with another day or two he will be able to go home. Unfortunately, even in his baseline he is severely limited.
[2019-04-14 12:00] VITALS: BP 92/60
[2019-04-14] MEDS ORDERED: SODIUM CHLORIDE 0.9% INJ 10 ML SYR IV PRN (12:30)
[2019-04-14 16:00] VITALS: BP 97/58
--- NOTE | 2019-04-14 19:31 | IPNPDOC ---
Date Seen The patient was seen on 04/14/19. Progress Note SUBJECTIVE: Patient appeared comfortable without any new complaints. BP unchanged in 90s systolic. Afebrile overnight. OBJECTIVE PHYSICAL EXAMINATION: VITAL SIGNS: Please see below. General: No acute distress, Alert, weak, severe spinal scoliosis with thoracic deformity Eyes: Normal sclera HENT: Atraumatic Cardiovascular: Normal rate. 1-2+ pitting edema b/l. b/l ankle swelling. Pulmonary: mild basilar crackles GI: Soft, nontender, nondistended Skin: Warm and dry Neuro: CN grossly intact. No focal deficits. Generalized weakness Psych: oriented x 3 LABORATORY DATA, IMAGING STUDIES, MICROBIOLOGY: Please see below. DVT prophylaxis ordered?: SCD. hx recent GIB. ASSESSMENT AND PLAN: 1. Acute GI Bleed - suspect 2/2 diverticulosis with complaints of painless hematochezia. ASA 325 mg held at this time. - Is a significant surgical risk given cardiac function. - Hb had remained stable, will monitor at this time. - s/p 1 pRBC on 04/05. 2. Acute on chronic advanced HFrEF - Patient has been on Milrinone drip at home prior to presentation. - Cardiology also following and assisting with diuresis. - Cautious in diuresis given hypotention. - c/w home medications. 3. CAD - c/w home mediations apart from ASA 325mg on hold due to GIB. 4. Hx recent staph. lugdunensis bacteremia - s/p IV daptomycin completed 04/13. 5. Congestive cardiorenal BYRON - c/w monitoring. - Renal US WNL. Prognosis: Poor DISPOSITION: Home if/when stable. VS, I&O, 24H, [facility] Vital Signs/I&O Vital Signs Date Time Temp Pulse Resp B/P (MAP) Pulse Ox O2 Delivery O2 Flow Rate FiO2 04/14/19 16:00 97.7 81 24 97/58 (71) 93 Room Air I&O- Last 24 Hours up to 6 AM 04/14/19 06:00 Intake Total 1020 ml Output Total 1340 ml Balance -320 ml Laboratory Data 24H LABS Laboratory Tests 2 04/14/19 04:49: Nucleated Red Blood Cells % (auto) 0.0, Anion Gap 7L, Glomerular Filtration Rate > 60.0, Calcium Level 8.7L, Magnesium Level 1.8 CBC/BMP Laboratory Tests 04/14/19 04:49 Microbiology Microbiology 04/13/19 Blood Culture - Preliminary, Resulted No growth after 24 hours . All specim... TABATHA EAGLE MD Apr 14, 2019 19:31
[2019-04-14 20:00] VITALS: BP 82/68
[2019-04-14] MEDS: PRAVASTATIN 10 MG TAB PO SCH (21:09)
[2019-04-14] MEDS: CETIRIZINE (ZyrTEC) 10 MG TAB PO SCH (21:09)
[2019-04-15] VITALS: BP 94/50
[2019-04-15] MEDS: ACETAMINOPHEN TAB 650MG DOSE (2X325MG) PO PRN (02:26)
[2019-04-15] MEDS: FUROSEMIDE 40 MG/4 ML VIAL (J1940) IV SCH ×4 (03:24→21:18)
[2019-04-15 04:00] VITALS: BP 90/51
[2019-04-15] MEDS: MILRINONE/DEXTROSE 20 MG in IV 1 EA IV SCH ×2 (04:42→16:32)
[2019-04-15 05:59] LABS: BLOOD UREA NITROGEN 55 MG/DL (7-18); CALCIUM LEVEL 9.2 MG/DL (8.8-10.2); CARBON DIOXIDE LEVEL 37 MEQ/L (21-32); CHLORIDE LEVEL 90 MEQ/L (98-107); CREATININE FOR GFR 0.85 MG/DL (0.70-1.30); GLOMERULAR FILTRATION RATE > 60.0 (>42); GLUCOSE, FASTING 111 MG/DL (70-100); POTASSIUM SERUM 3.5 MEQ/L (3.5-5.1); SODIUM LEVEL 133 MEQ/L (136-145)
[2019-04-15 08:00] VITALS: BP 90/58
[2019-04-15] MEDS: SPIRONOLACTONE 25 MG TAB PO SCH ×2 (08:33→16:20)
[2019-04-15] MEDS: DIGOXIN 0.125 MG TAB PO SCH (08:33)
[2019-04-15] MEDS: OMEPRAZOLE 20 MG CAP PO SCH ×2 (08:33→21:19)
[2019-04-15] MEDS: MULTIVITAMINS/MINERALS THERAP 1 TAB PO SCH (08:33)
[2019-04-15] MEDS: MAGNESIUM OXIDE 400 MG TAB (MAG-OX) PO SCH (08:33)
[2019-04-15] MEDS: VITAMIN D 1,000 INTERNATIONAL UNITS TABLET PO SCH (08:33)
[2019-04-15] MEDS: POTASSIUM CHLORIDE 10 MEQ XX SCH ×2 (08:34→21:19)
[2019-04-15] MEDS: SODIUM CHLORIDE 0.9% INJ 10 ML SYR IV SCH (08:34)
--- NOTE | 2019-04-15 08:57 | IPN ---
DATE: 04/15/2019 Mr. Flores feels maybe slightly better again but the difference is fairly subtle. He denies any resting symptoms, but minimal activity will make him short of breath. He slept well with his BiPap. His fluid balance yesterday was recorded negative 1400. Weight has not been documented in the last 2 days. He is alert and oriented and appropriate. His jugular venous pulse (JVP) is quite high, still about 5 or 6 cm above the clavicle. Blood pressure 90/51. Heart rate in 70s. Afebrile. 93% on room air. Lungs are reasonably clear. 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 Heart exam reveals a regular rhythm. I do not appreciate any obvious murmur or gallop. Abdomen is soft. Extremities still have some edema, about 2+ on his feet and about 1+ on his shins, but it is slowly improving. Laboratories: Basic metabolic - Sodium 133, potassium 3.5, BUN 55, creatinine 0.85 and glucose 111. CBC - Hemoglobin 11.9, hematocrit 35, platelet count 232,000. ASSESSMENT/PLAN: Mr. 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 He has been chronically on milrinone drip and was not found to be a candidate for more advanced heart failure therapies in the heart failure clinic in [place]. At this point, I would continue diuresing him. I had a discussion with him and his today that we will be hoping to discharge him by the end of this week. He seems to be rather apprehensive about this, but nevertheless I do think that we accomplished some progress. Unfortunately, in the long horizon his prognosis remains poor. No changes are made today.
[2019-04-15 12:05] VITALS: BP 100/55
[2019-04-15 16:26] VITALS: BP 92/54
--- NOTE | 2019-04-15 16:58 | IPNPDOC ---
Date Seen The patient was seen on 04/15/19. Progress Note SUBJECTIVE: Patient appeared comfortable without any new complaints. BP unchanged in 90s systolic. Afebrile overnight. Diurese -1.4 L yesterday. OBJECTIVE PHYSICAL EXAMINATION: VITAL SIGNS: Please see below. General: No acute distress, Alert, weak, severe spinal scoliosis with thoracic deformity Eyes: Normal sclera HENT: Atraumatic Cardiovascular: Normal rate. 1-2+ pitting edema b/l. b/l ankle swelling. Pulmonary: mild basilar crackles GI: Soft, nontender, nondistended Skin: Warm and dry Neuro: CN grossly intact. No focal deficits. Generalized weakness Psych: oriented x 3 LABORATORY DATA, IMAGING STUDIES, MICROBIOLOGY: Please see below. DVT prophylaxis ordered?: SCD. hx recent GIB. ASSESSMENT AND PLAN: 1. Acute GI Bleed - suspect 2/2 diverticulosis with complaints of painless hematochezia. ASA 325 mg held at this time. - Is a significant surgical risk given cardiac function. - Hb had remained stable. - s/p 1 pRBC on 04/05. 2. Acute on chronic advanced HFrEF - Patient has been on Milrinone drip at home prior to presentation. - Cardiology also following and assisting with diuresis. - Cautious in diuresis given hypotention. - c/w home medications. 3. CAD - c/w home mediations apart from ASA 325mg on hold due to GIB. 4. Hx recent staph. lugdunensis bacteremia - s/p IV daptomycin completed 04/13. - Repeat blood cultures 04/02 and 04/13 have been negative. 5. Congestive cardiorenal BYRON - c/w monitoring. - Renal US WNL. Prognosis: Poor DISPOSITION: Home if/when stable. [facility] Vital Signs/I&O Vital Signs Date Time Temp Pulse Resp B/P (MAP) Pulse Ox O2 Delivery O2 Flow Rate FiO2 04/15/19 16:26 98.3 73 19 92/54 (67) 94 Room Air I&O- Last 24 Hours up to 6 AM 04/15/19 06:00 Intake Total 492.6 ml Output Total 1325 ml Balance -832.4 ml Laboratory Data 24H LABS Laboratory Tests 2 04/15/19 05:27: Anion Gap 6L, Glomerular Filtration Rate > 60.0, Calcium Level 9.2 CBC/BMP Laboratory Tests 04/15/19 05:27 Microbiology Microbiology 04/13/19 Blood Culture - Preliminary, Resulted No Growth after 48 hours. All Specime... TABATHA EAGLE MD Apr 15, 2019 16:58
[2019-04-15 20:00] VITALS: BP 100/54
[2019-04-15] MEDS: PRAVASTATIN 10 MG TAB PO SCH (21:19)
[2019-04-15] MEDS: CETIRIZINE (ZyrTEC) 10 MG TAB PO SCH (21:19)
[2019-04-16] VITALS (7 sets, daily range): BP systolic 92–120; BP diastolic 50–60
[2019-04-16] MEDS: FUROSEMIDE 40 MG/4 ML VIAL (J1940) IV SCH (04:08)
[2019-04-16] MEDS: MILRINONE/DEXTROSE 20 MG in IV 1 EA IV SCH ×2 (05:32→18:12)
[2019-04-16 05:52] LABS: BLOOD UREA NITROGEN 55 MG/DL (7-18); CALCIUM LEVEL 8.8 MG/DL (8.8-10.2); CARBON DIOXIDE LEVEL 38 MEQ/L (21-32); CHLORIDE LEVEL 90 MEQ/L (98-107); CREATININE FOR GFR 0.88 MG/DL (0.70-1.30); GLOMERULAR FILTRATION RATE > 60.0 (>42); GLUCOSE, FASTING 107 MG/DL (70-100); POTASSIUM SERUM 3.7 MEQ/L (3.5-5.1); SODIUM LEVEL 135 MEQ/L (136-145)
--- NOTE | 2019-04-16 08:33 | IPN ---
DATE: 04/16/2019 Mr. Flores again reports subtle improvement since yesterday but principally he still gets short of breath with fairly minimal activity. No chest pain. Blood pressure 92/52, heart rate has been 70s and 80s, sinus rhythm, minimal ectopy, afebrile. Saturation 95% on room air. Fluid balance yesterday was recorded as slightly positive. The weight was recorded 47.3 kg after 2 day hiatus. His jugular venous pulse (JVP) is still high but probably about 5 cm above clavicle while sitting. 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 Heart exam reveals regular rhythm. I do not appreciate gallop. Abdomen is soft. Extremities still have about 1-2+ edema on his feet and mild edema on his shins. LABORATORIES: Basic metabolic panel: Sodium 135, potassium 3.7, BUN 55, creatinine 0.9, glucose 107. Hemoglobin 11.1, hematocrit 35, platelet count 232,000. ASSESSMENT AND PLAN: Mr. Flores is a 74-year-old man who has severe congestive heart failure that is systolic in nature and involves also right-sided heart failure. This is in setting of severe restrictive lung disease. At this point, he has been in the hospital for a prolonged period of time. He accomplished some diuresis even though I am not convinced that we made a big dent in his overall condition. At this point, I am going to switch him to oral diuretics with hope that unless he deteriorates overnight will be able to discharge him tomorrow. I will discontinue IV furosemide and will switch him to torsemide 100 mg daily. Provided his laboratory data tomorrow are not vastly worse I believe that will hope for discharge.
[2019-04-16] MEDS: MAGNESIUM OXIDE 400 MG TAB (MAG-OX) PO SCH (09:14)
[2019-04-16] MEDS: VITAMIN D 1,000 INTERNATIONAL UNITS TABLET PO SCH (09:14)
[2019-04-16] MEDS: MULTIVITAMINS/MINERALS THERAP 1 TAB PO SCH (09:15)
[2019-04-16] MEDS: SODIUM CHLORIDE 0.9% INJ 10 ML SYR IV SCH (09:15)
[2019-04-16] MEDS: SPIRONOLACTONE 25 MG TAB PO SCH ×2 (09:15→16:41)
[2019-04-16] MEDS: OMEPRAZOLE 20 MG CAP PO SCH ×2 (09:15→21:15)
[2019-04-16] MEDS: POTASSIUM CHLORIDE 10 MEQ XX SCH ×2 (09:16→21:15)
[2019-04-16] MEDS: ACETAMINOPHEN TAB 650MG DOSE (2X325MG) PO PRN (10:41)
[2019-04-16] MEDS: TORSEMIDE 100 MG TAB PO SCH (13:11)
--- NOTE | 2019-04-16 18:32 | IPNPDOC ---
Date Seen The patient was seen on 04/16/19. Progress Note SUBJECTIVE: Patient reported feeling better today with slightly decreased LE swelling. No acute events reported overnight. OBJECTIVE PHYSICAL EXAMINATION: VITAL SIGNS: Please see below. General: No acute distress, Alert, weak, severe spinal scoliosis with thoracic deformity Eyes: Normal sclera HENT: Atraumatic Cardiovascular: Normal rate. 1-2+ pitting edema b/l. b/l ankle swelling. Pulmonary: mild basilar crackles GI: Soft, nontender, nondistended Skin: Warm and dry Neuro: CN grossly intact. No focal deficits. Generalized weakness Psych: oriented x 3 LABORATORY DATA, IMAGING STUDIES, MICROBIOLOGY: Please see below. DVT prophylaxis ordered?: SCD. hx recent GIB. ASSESSMENT AND PLAN: 1. Acute GI Bleed - suspect 2/2 diverticulosis with complaints of painless hematochezia. ASA 325 mg held at this time. - Is a significant surgical risk given cardiac function. - Hb had remained stable. - s/p 1 pRBC on 04/05. 2. Acute on chronic advanced HFrEF - Patient has been on Milrinone drip at home prior to presentation. - Cardiology also following and assisting with diuresis. - Cautious in diuresis given hypotention. - c/w home medications. 3. CAD - c/w home mediations apart from ASA 325mg on hold due to GIB. 4. Hx recent staph. lugdunensis bacteremia - s/p IV daptomycin completed 04/13. - Repeat blood cultures 04/02 and 04/13 have been negative. 5. Congestive cardiorenal BYRON - c/w monitoring. Improved. - Renal US WNL. Prognosis: Poor DISPOSITION: Home likely tomorrow or this weekend. VS, I&O, 24H, [facility] Vital Signs/I&O Vital Signs Date Time Temp Pulse Resp B/P (MAP) Pulse Ox O2 Delivery O2 Flow Rate FiO2 04/16/19 16:00 97.8 77 22 92/60 (71) 96 Room Air I&O- Last 24 Hours up to 6 AM 04/16/19 06:00 Intake Total 1413.0 ml Output Total 1375 ml Balance 38.0 ml Laboratory Data 24H LABS Laboratory Tests 2 04/16/19 05:19: Anion Gap 7L, Glomerular Filtration Rate > 60.0, Calcium Level 8.8 CBC/BMP Laboratory Tests 04/16/19 05:19 Microbiology Microbiology 12/9/19 Blood Culture - Preliminary, Resulted No Growth after 72 hours. All specime... TABATHA EAGLE MD Apr 16, 2019 18:31
[2019-04-16] MEDS: PRAVASTATIN 10 MG TAB PO SCH (21:15)
[2019-04-16] MEDS: CETIRIZINE (ZyrTEC) 10 MG TAB PO SCH (21:15)
[2019-04-16] MEDS: CALAMINE LOTION 177 ML BTL TOP SCH ×2 (21:16→22:51)
[2019-04-17 04:00] VITALS: BP 95/57
[2019-04-17 06:13] LABS: BLOOD UREA NITROGEN 57 MG/DL (7-18); CALCIUM LEVEL 9.2 MG/DL (8.8-10.2); CARBON DIOXIDE LEVEL 37 MEQ/L (21-32); CHLORIDE LEVEL 88 MEQ/L (98-107); CREATININE FOR GFR 0.87 MG/DL (0.70-1.30); GLOMERULAR FILTRATION RATE > 60.0 (>42); GLUCOSE, FASTING 97 MG/DL (70-100); MAGNESIUM LEVEL 1.9 MG/DL (1.8-2.4); POTASSIUM SERUM 3.7 MEQ/L (3.5-5.1); SODIUM LEVEL 133 MEQ/L (136-145)
[2019-04-17] MEDS: MILRINONE/DEXTROSE 20 MG in IV 1 EA IV SCH (06:45)
[2019-04-17 08:00] VITALS: BP 87/42
--- NOTE | 2019-04-17 09:08 | IPN ---
DATE: 04/17/2019 Mr. Flores is feeling about the same as yesterday. We switched him from IV to oral diuretics. His urine output was recorded at about 1200, but when I talked to his who does a very good job monitoring his urine output, it was actually about 1650. His weight is 46.9, which is slightly less than yesterday. He feels still short of breath with a fairly small amount of activity but certainly not worse and possibly a little bit better than yesterday. Lungs are reasonably clear. His jugular venous pressure is still about 5 cm above clavicle. Heart: Exam reveals regular rhythm. No gallop that I cannot appreciate but it is very challenging due to his chest habitus. Abdomen is soft, nontender. He still has about 1+ edema on his shins. LABORATORY: Basic metabolic panel: Sodium 133, potassium 3.7, BUN 57, creatinine 0.9 and glucose 97. CBC: Hemoglobin 11.1, hematocrit 35, platelet count 232,000 ASSESSMENT/PLAN: Mr. Flores is a 74-year-old man who has severe restrictive lung disease together with cardiomyopathy with both right and left-sided heart failure that is systolic in nature. He has very low blood pressure which precludes using vasodilators and other medications with proven benefit in heart failure situations. He has been basically treated with milrinone and diuretics. At this point, I believe he can go home as it is not likely we can accomplish better compensation. I would continue his milrinone infusion that has been arranged on an outpatient basis by heart failure clinic from [facility]. I will give him torsemide 100 mg daily. I gave them instructions that if his weight goes up very more than 2 pounds over his baseline to double the torsemide for 3 days and if no improvement then to contact me or Dr. Adams for instructions. I explained to him that unfortunately he is in the face of disease that is not correctable and his life expectancy is uncertain and possibly not very long. He was found not to be a candidate for any invasive therapies, including LVAD and certainly not for transplantation. NUVIA
[2019-04-17 09:55] VITALS: BP 89/51
[2019-04-17] MEDS: VITAMIN D 1,000 INTERNATIONAL UNITS TABLET PO SCH (09:56)
[2019-04-17] MEDS: SPIRONOLACTONE 25 MG TAB PO SCH (09:56)
[2019-04-17] MEDS: MULTIVITAMINS/MINERALS THERAP 1 TAB PO SCH (09:57)
[2019-04-17] MEDS: OMEPRAZOLE 20 MG CAP PO SCH (09:57)
[2019-04-17] MEDS: MAGNESIUM OXIDE 400 MG TAB (MAG-OX) PO SCH (09:57)
[2019-04-17] MEDS: DIGOXIN 0.125 MG TAB PO SCH (09:57)
[2019-04-17] MEDS: TORSEMIDE 100 MG TAB PO SCH (09:58)
[2019-04-17] MEDS: CALAMINE LOTION 177 ML BTL TOP SCH (10:00)
[2019-04-17] MEDS: POTASSIUM CHLORIDE 10 MEQ XX SCH (10:01)
[2019-04-17] MEDS: SODIUM CHLORIDE 0.9% INJ 10 ML SYR IV SCH (10:01)
[2019-04-17 12:00] VITALS: BP 95/51
[2019-04-17] MEDS ORDERED: ALDA25TA2 PO (12:17)
[2019-04-17] MEDS ORDERED: TORS100T PO (12:17)
[2019-04-17] MEDS ORDERED: ASPI81CH33 PO (14:47)
--- NOTE | 2019-04-17 14:55 | DS.PDOC ---
Discharge Summary General Date of Admission Apr 02, 2019 at 21:25 Date of Discharge 04/17/19 Discharge Summary PROCEDURES PERFORMED DURING STAY: [None]. ADMITTING DIAGNOSES: 1. GI bleed 2. CAD 3. HFrEF 4. hx bacteremia DISCHARGE DIAGNOSES: 1. GI bleed 2. CAD 3. Acute on chronic HFrEF EF 25% on continuous home Milrinone drip 4. hx bacteremia COMPLICATIONS/CHIEF COMPLAINT: Gi Bleed. HISTORY OF PRESENT ILLNESS: "Patient is 74 years old male with past medical history of systolic CHF with ejection fraction less than 25%, on milrinone drip, recent TIA on aspirin 325 mg presented hospital with multiple episodes of diarrhea with red blood. Patient stated that today around 2 PM he developed multiple episodes of diarrhea with bright, red blood. Patient has a history of hemorrhoids and diverticulosis. Patient denied any abdominal pain, fever or chills. Patient has been recently hospitalized for TIA and he received treatment with daily aspirin 325 mg. Patient denied any epigastric pain. Of note his last admission he was diagnosed with bacteremia with Staphylococcus lugdunensis, on daptomycin infusion for 14 days, the last day of infusion April 13. In emergency room patient was found to have hemoglobin of 13.5. Stool for occult blood positive" HOSPITAL COURSE: Patient was evaluated and suspect that he had bleeding 2/2 diverticulosis, ASA had been held with stabelization of Hb post 1 unit pRBC transfusion. Patient was deemed high surgical risk given cardiac function and had been managed surgically. No further drop in Hb were noted or complaints of hematochezia. Patient also appear to be fluid overloaded with LE edema and was diuresed along with cardiology's assistance. Had been challenging due to patient's chronic hypotension of systolic BP in 90s. Volume status continue to improve slowly and have been cleared for discharge home to follow up with PMD and cardiology. Patient's prognosis remains poor given severe cardiac impairment with hypotension that is unfortunately not a transplant candidate. BYRON was also noted during admission and had improved to now normal creatinine and repeat blood cultures remains negative as patient recently received course of treatment for staph lugdunensis. Given GI bleed, ASA is reduced from 325mg to 81mg daily to reduce risk of recurrent bleeding after discussing with cardiology. DISCHARGE MEDICATIONS: Please see below. ALLERGIES: Please see below. PHYSICAL EXAMINATION ON DISCHARGE: VITAL SIGNS: Please see below. General: No acute distress, Alert, weak, severe spinal scoliosis with thoracic deformity Eyes: Normal sclera HENT: Atraumatic Cardiovascular: Normal rate. 1-2+ pitting edema b/l. b/l ankle swelling. Pulmonary: mild basilar crackles GI: Soft, nontender, nondistended Skin: Warm and dry Neuro: CN grossly intact. No focal deficits. Generalized weakness Psych: oriented x 3 LABORATORY DATA: Please see below. IMAGING: Abdomen/pelvis CT- IMPRESSION: 1. Constipation. 2. 5 cm prostate gland with prostatic seeds and calcifications. 3. Moderate cardiac enlargement. 4. Moderate right hip joint effusion. 5. Moderate diverticulosis coli without acute inflammation. 6. Prominence of the hemorrhoidal soft tissues in the anorectal region. 7. Cholelithiasis. CXR- Mildly increased bibasilar opacities suggested. Renal US- IMPRESSION: Unremarkable renal ultrasound. PROGNOSIS: Poor ACTIVITY: [As tolerated]. DIET: 2G Sodium diet DISCHARGE PLAN: Discontinue 325mg ASA and start on 81mg daily c/w Milrinone drip. F/u PCP and Cardiology. DISPOSITION: Home with home services. DISCHARGE INSTRUCTIONS: Discontinue 325mg ASA and start on 81mg daily c/w Milrinone drip. F/u PCP and Cardiology. ITEMS TO FOLLOWUP ON ON OUTPATIENT: None DISCHARGE CONDITION: [Stable]. TIME SPENT ON DISCHARGE: 40 minutes. Vital Signs/I&Os Vital Signs Date Time Temp Pulse Resp B/P (MAP) Pulse Ox O2 Delivery O2 Flow Rate FiO2 04/17/19 12:00 98.1 73 16 95/51 (66) 94 Room Air I&O- Last 24 Hours up to 6 AM 04/17/19 06:00 Intake Total 1471.25 ml Output Total 1500 ml Balance -28.75 ml Laboratory Data Labs 24H Laboratory Tests 2 04/17/19 05:31: Anion Gap 8, Glomerular Filtration Rate > 60.0, Calcium Level 9.2, Magnesium Level 1.9 CBC/BMP Laboratory Tests 04/17/19 05:31 Microbiology Microbiology 04/13/19 Blood Culture - Preliminary, Resulted No Growth after 72 hours. All specime... Discharge Medications Scheduled Aspirin (Aspirin) 81 Mg Tab.chew, 81 MG PO DAILY Calcium Carb/Vitamin D3/Vit K1 (Viactiv 650 mg-12.5 Mcg Chew) 1 Each Tab.chew, 1 EACH PO DAILY, (Reported) Cetirizine HCl (Cetirizine HCl) 10 Mg Tablet, 10 MG PO QHS, (Reported) Cholecalciferol (Vitamin D3) (Vitamin D3) 1,000 Unit Tablet, 2,000 UNIT PO DAILY, (Reported) Daptomycin (Daptomycin) 500 Mg Vial, 500 MG IV QHS, (Reported) Digoxin (Digoxin) 125 Mcg Tablet, 125 MCG PO Q2D, (Reported) Magnesium Oxide (Magnesium Oxide) 400 Mg Tablet, 400 MG PO DAILY, (Reported) Milrinone Lactate/D5w (Milrinone-D5w 40 mg/200 ml) 40 Mg/200 Ml Piggyback, 1.6 MG IV CONTINUOUS, (Reported) 26.6MCG/MIN RATE ON CONTINUOUS DRIP. 0.5MCG/KG/MIN FROM [facility]. Potassium Chloride (Potassium Chloride) 10 Meq Tab.er.prt, 20 MEQ PO BID, (Reported) Pravastatin Sodium (Pravastatin Sodium) 10 Mg Tab, 10 MG PO QHS, (Reported) Spironolactone (Aldactone) 25 Mg Tablet, 25 MG PO BID@, Torsemide (Torsemide) 100 Mg Tablet, 100 MG PO DAILY Allergies Coded Allergies: Penicillins (Verified Allergy, Intermediate, hives, 10/02/18) latex (Verified Allergy, Mild, rash , 03/26/19) TABATHA EAGLE MD Apr 17, 2019 14:55
== END 2019-04-17 17:14 | disposition home health service (06) | DRG 377 ==
LOC: M ED 17:04 → M ED INP 21:25 → M MSPAV 23:00 → M PCU 04-03 00:08
PROVIDERS: ADMIT Internal Medicine; ATTEND Student in an Organized Health Care Education/Training Program
PROC: 30233N1 Transfusion of Nonautologous Red Blood Cells into Peripheral Vein, Percutaneous Approach (ICD-10-PCS; principal; 2019-04-05)
DX: K57.31 Diverticulosis of large intestine without perforation or abscess with bleeding (principal); I50.23 Acute on chronic systolic (congestive) heart failure; N17.9 Acute kidney failure, unspecified; I42.8 Other cardiomyopathies; I25.10 Atherosclerotic heart disease of native coronary artery without angina pectoris; Z79.82 Long term (current) use of aspirin; Z86.73 Personal history of transient ischemic attack (TIA), and cerebral infarction without residual deficits; K64.8 Other hemorrhoids; I95.1 Orthostatic hypotension; K59.00 Constipation, unspecified; K80.20 Calculus of gallbladder without cholecystitis without obstruction; Z79.899 Other long term (current) drug therapy; Z88.0 Allergy status to penicillin; Z91.040 Latex allergy status; Z85.46 Personal history of malignant neoplasm of prostate; E78.5 Hyperlipidemia, unspecified; M81.0 Age-related osteoporosis without current pathological fracture; G47.33 Obstructive sleep apnea (adult) (pediatric); Z95.0 Presence of cardiac pacemaker; G14 Postpolio syndrome

== ENCOUNTER → 2019-04-20 | Outpatient (REF) | payer MEDICARE, OTHER ==
[~2019-04-20] MED LIST changes: +BAYE325T12 PO; +TORS100T PO
== END ==
LOC: M LAB REF 18:20
PROVIDERS: ATTEND Internal Medicine
DX: I42.0 Dilated cardiomyopathy (principal)

== ENCOUNTER → 2019-04-24 | Outpatient (REF) | payer MEDICARE, OTHER ==
[2019-04-24 14:09] LABS: HEMATOCRIT 41.4 % (42.0-52.0); HEMOGLOBIN 12.3 g/dl (13.5-17.5); MEAN CORPUSCULAR HEMOGLOBIN 31.4 pg (27.0-33.0); MEAN CORPUSCULAR HGB CONC 29.7 g/dl (32.0-36.5); MEAN CORPUSCULAR VOLUME 105.6 fl (80.0-96.0); PLATELET COUNT, AUTOMATED 227 10^3/uL (150-450); RED BLOOD COUNT 3.92 10^6/uL (4.30-6.10); WHITE BLOOD COUNT 4.9 10^3/uL (4.0-10.0)
[2019-04-24 14:35] LABS: ALBUMIN 3.4 GM/DL (3.2-5.2); ALT/SGPT 30 U/L (12-78); BILIRUBIN,TOTAL 0.8 MG/DL (0.2-1.0); BLOOD UREA NITROGEN 40 MG/DL (7-18); CALCIUM LEVEL 8.8 MG/DL (8.8-10.2); CARBON DIOXIDE LEVEL 33 MEQ/L (21-32); CHLORIDE LEVEL 95 MEQ/L (98-107); CREATININE FOR GFR 0.84 MG/DL (0.70-1.30); GLOMERULAR FILTRATION RATE > 60.0 (>42); GLUCOSE, FASTING 138 MG/DL (70-100); MAGNESIUM LEVEL 2.5 MG/DL (1.8-2.4); NT-PRO BNP 7363 PG/ML (<125); POTASSIUM SERUM 4.1 MEQ/L (3.5-5.1); SODIUM LEVEL 138 MEQ/L (136-145); TOTAL PROTEIN 6.7 GM/DL (6.4-8.2)
== END ==
LOC: M LAB REF 13:38
PROVIDERS: ATTEND Internal Medicine Advanced Heart Failure and Transplant Cardiology
DX: I42.9 Cardiomyopathy, unspecified (principal)

== ENCOUNTER → 2019-04-28 | Outpatient (REF) | payer MEDICARE, OTHER ==
[2019-04-28 15:22] LABS: CALCIUM LEVEL 8.9 MG/DL (8.8-10.2)
[2019-04-28 15:40] LABS: TOTAL 25(OH) VITAMIN D 52.3 NG/ML (30.0-100.0)
== END ==
LOC: M SHH 14:34
PROVIDERS: ATTEND Internal Medicine Endocrinology, Diabetes & Metabolism
DX: M81.0 Age-related osteoporosis without current pathological fracture (principal); E55.9 Vitamin D deficiency, unspecified

== ENCOUNTER → 2019-04-28 | Outpatient (REF) | payer MEDICARE, OTHER ==
[2019-04-28 14:56] LABS: HEMATOCRIT 44.5 % (42.0-52.0); HEMOGLOBIN 13.2 g/dl (13.5-17.5); MEAN CORPUSCULAR HEMOGLOBIN 31.7 pg (27.0-33.0); MEAN CORPUSCULAR HGB CONC 29.7 g/dl (32.0-36.5); MEAN CORPUSCULAR VOLUME 106.7 fl (80.0-96.0); PLATELET COUNT, AUTOMATED 209 10^3/uL (150-450); RED BLOOD COUNT 4.17 10^6/uL (4.30-6.10); WHITE BLOOD COUNT 5.7 10^3/uL (4.0-10.0)
[2019-04-28 15:31] LABS: ALBUMIN 3.6 GM/DL (3.2-5.2); ALT/SGPT 32 U/L (12-78); BILIRUBIN,TOTAL 0.9 MG/DL (0.2-1.0); BLOOD UREA NITROGEN 33 MG/DL (7-18); CALCIUM LEVEL 8.5 MG/DL (8.8-10.2); CARBON DIOXIDE LEVEL 36 MEQ/L (21-32); CHLORIDE LEVEL 96 MEQ/L (98-107); CREATININE FOR GFR 0.64 MG/DL (0.70-1.30); GLOMERULAR FILTRATION RATE > 60.0 (>42); GLUCOSE, FASTING 132 MG/DL (70-100); MAGNESIUM LEVEL 2.4 MG/DL (1.8-2.4); NT-PRO BNP 8673 PG/ML (<125); SODIUM LEVEL 137 MEQ/L (136-145)
== END ==
LOC: M SHH 14:36
PROVIDERS: ATTEND Nurse Practitioner
DX: I50.43 Acute on chronic combined systolic (congestive) and diastolic (congestive) heart failure (principal); M81.0 Age-related osteoporosis without current pathological fracture; E55.9 Vitamin D deficiency, unspecified

== ENCOUNTER → 2019-05-05 | Outpatient (REF) | payer MEDICARE, OTHER ==
[2019-05-05 12:35] LABS: HEMATOCRIT 41.7 % (42.0-52.0); HEMOGLOBIN 13.1 g/dl (13.5-17.5); MEAN CORPUSCULAR HEMOGLOBIN 32.6 pg (27.0-33.0); MEAN CORPUSCULAR HGB CONC 31.4 g/dl (32.0-36.5); MEAN CORPUSCULAR VOLUME 103.7 fl (80.0-96.0); PLATELET COUNT, AUTOMATED 172 10^3/uL (150-450); RED BLOOD COUNT 4.02 10^6/uL (4.30-6.10); WHITE BLOOD COUNT 5.1 10^3/uL (4.0-10.0)
[2019-05-05 13:10] LABS: ALBUMIN 3.4 GM/DL (3.2-5.2); ALT/SGPT 30 U/L (12-78); BILIRUBIN,TOTAL 1.3 MG/DL (0.2-1.0); BLOOD UREA NITROGEN 28 MG/DL (7-18); CALCIUM LEVEL 8.8 MG/DL (8.8-10.2); CARBON DIOXIDE LEVEL 36 MEQ/L (21-32); CHLORIDE LEVEL 92 MEQ/L (98-107); GLOMERULAR FILTRATION RATE > 60.0 (>42); GLUCOSE, FASTING 150 MG/DL (70-100); MAGNESIUM LEVEL 2.4 MG/DL (1.8-2.4); NT-PRO BNP 7216 PG/ML (<125); POTASSIUM SERUM 3.8 MEQ/L (3.5-5.1); SODIUM LEVEL 133 MEQ/L (136-145); TOTAL PROTEIN 6.5 GM/DL (6.4-8.2)
== END ==
LOC: M SHH 12:18
PROVIDERS: ATTEND Nurse Practitioner
DX: I50.43 Acute on chronic combined systolic (congestive) and diastolic (congestive) heart failure (principal)

== ENCOUNTER → 2019-05-12 | Outpatient (REF) | payer MEDICARE, OTHER ==
[2019-05-12 18:37] LABS: HEMATOCRIT 45.9 % (42.0-52.0); MEAN CORPUSCULAR HEMOGLOBIN 31.8 pg (27.0-33.0); MEAN CORPUSCULAR HGB CONC 30.5 g/dl (32.0-36.5); MEAN CORPUSCULAR VOLUME 104.3 fl (80.0-96.0); PLATELET COUNT, AUTOMATED 189 10^3/uL (150-450); WHITE BLOOD COUNT 5.5 10^3/uL (4.0-10.0)
[2019-05-12 18:51] LABS: ALBUMIN 3.6 GM/DL (3.2-5.2); ALT/SGPT 33 U/L (12-78); BILIRUBIN,TOTAL 1.1 MG/DL (0.2-1.0); BLOOD UREA NITROGEN 22 MG/DL (7-18); CALCIUM LEVEL 9.1 MG/DL (8.8-10.2); CARBON DIOXIDE LEVEL 32 MEQ/L (21-32); CHLORIDE LEVEL 92 MEQ/L (98-107); CREATININE FOR GFR 0.56 MG/DL (0.70-1.30); GLOMERULAR FILTRATION RATE > 60.0 (>42); GLUCOSE, FASTING 72 MG/DL (70-100); MAGNESIUM LEVEL 2.1 MG/DL (1.8-2.4); NT-PRO BNP 8861 PG/ML (<125); POTASSIUM SERUM 3.8 MEQ/L (3.5-5.1); SODIUM LEVEL 136 MEQ/L (136-145); TOTAL PROTEIN 6.8 GM/DL (6.4-8.2)
== END ==
LOC: M SHH 16:58
PROVIDERS: ATTEND Nurse Practitioner
DX: I50.43 Acute on chronic combined systolic (congestive) and diastolic (congestive) heart failure (principal)

== ENCOUNTER → 2019-05-19 | Outpatient (REF) | payer MEDICARE, OTHER ==
[2019-05-19 13:44] LABS: HEMATOCRIT 44.3 % (42.0-52.0); HEMOGLOBIN 13.9 g/dl (13.5-17.5); MEAN CORPUSCULAR HEMOGLOBIN 32.4 pg (27.0-33.0); MEAN CORPUSCULAR HGB CONC 31.4 g/dl (32.0-36.5); MEAN CORPUSCULAR VOLUME 103.3 fl (80.0-96.0); PLATELET COUNT, AUTOMATED 168 10^3/uL (150-450); RED BLOOD COUNT 4.29 10^6/uL (4.30-6.10); WHITE BLOOD COUNT 6.8 10^3/uL (4.0-10.0)
[2019-05-19 14:19] LABS: ALBUMIN 3.8 GM/DL (3.2-5.2); ALT/SGPT 33 U/L (12-78); BILIRUBIN,TOTAL 0.8 MG/DL (0.2-1.0); BLOOD UREA NITROGEN 39 MG/DL (7-18); CALCIUM LEVEL 9.3 MG/DL (8.8-10.2); CARBON DIOXIDE LEVEL 36 MEQ/L (21-32); CHLORIDE LEVEL 88 MEQ/L (98-107); CREATININE FOR GFR 0.62 MG/DL (0.70-1.30); GLOMERULAR FILTRATION RATE > 60.0 (>42); GLUCOSE, FASTING 76 MG/DL (70-100); MAGNESIUM LEVEL 2.2 MG/DL (1.8-2.4); NT-PRO BNP 11574 PG/ML (<125); POTASSIUM SERUM 3.6 MEQ/L (3.5-5.1); SODIUM LEVEL 132 MEQ/L (136-145); TOTAL PROTEIN 6.8 GM/DL (6.4-8.2)
== END ==
LOC: M SHH 12:57
PROVIDERS: ATTEND Internal Medicine Advanced Heart Failure and Transplant Cardiology
DX: I50.43 Acute on chronic combined systolic (congestive) and diastolic (congestive) heart failure (principal)

== ENCOUNTER → 2019-05-26 | Outpatient (REF) | payer MEDICARE, OTHER ==
[2019-05-26 18:29] LABS: HEMATOCRIT 47.8 % (42.0-52.0); HEMOGLOBIN 14.2 g/dl (13.5-17.5); MEAN CORPUSCULAR HEMOGLOBIN 30.9 pg (27.0-33.0); MEAN CORPUSCULAR HGB CONC 29.7 g/dl (32.0-36.5); MEAN CORPUSCULAR VOLUME 104.1 fl (80.0-96.0); PLATELET COUNT, AUTOMATED 158 10^3/uL (150-450); RED BLOOD COUNT 4.59 10^6/uL (4.30-6.10); WHITE BLOOD COUNT 6.2 10^3/uL (4.0-10.0)
[2019-05-26 18:47] LABS: ALBUMIN 3.8 GM/DL (3.2-5.2); ALT/SGPT 32 U/L (12-78); BLOOD UREA NITROGEN 39 MG/DL (7-18); CARBON DIOXIDE LEVEL 37 MEQ/L (21-32); CHLORIDE LEVEL 88 MEQ/L (98-107); CREATININE FOR GFR 0.68 MG/DL (0.70-1.30); GLOMERULAR FILTRATION RATE > 60.0 (>42); GLUCOSE, FASTING 90 MG/DL (70-100); MAGNESIUM LEVEL 2.4 MG/DL (1.8-2.4); NT-PRO BNP 8894 PG/ML (<125); POTASSIUM SERUM 4.4 MEQ/L (3.5-5.1); SODIUM LEVEL 134 MEQ/L (136-145); TOTAL PROTEIN 6.8 GM/DL (6.4-8.2)
== END ==
LOC: M SHH 16:50
PROVIDERS: ATTEND Internal Medicine Advanced Heart Failure and Transplant Cardiology
DX: I50.43 Acute on chronic combined systolic (congestive) and diastolic (congestive) heart failure (principal)

== ENCOUNTER → 2019-06-02 | Outpatient (REF) | payer MEDICARE, OTHER ==
[~2019-06-02] MED LIST changes: +NAPR-837 PO; +SOMA350T PO
[2019-06-02 18:38] LABS: HEMOGLOBIN 14.5 g/dl (13.5-17.5); MEAN CORPUSCULAR HEMOGLOBIN 31.5 pg (27.0-33.0); MEAN CORPUSCULAR HGB CONC 30.2 g/dl (32.0-36.5); MEAN CORPUSCULAR VOLUME 104.3 fl (80.0-96.0); PLATELET COUNT, AUTOMATED 168 10^3/uL (150-450); WHITE BLOOD COUNT 7.3 10^3/uL (4.0-10.0)
[2019-06-02 19:09] LABS: ALBUMIN 3.8 GM/DL (3.2-5.2); ALT/SGPT 34 U/L (12-78); BILIRUBIN,TOTAL 1.3 MG/DL (0.2-1.0); BLOOD UREA NITROGEN 42 MG/DL (7-18); CALCIUM LEVEL 9.3 MG/DL (8.8-10.2); CARBON DIOXIDE LEVEL 36 MEQ/L (21-32); CHLORIDE LEVEL 89 MEQ/L (98-107); GLOMERULAR FILTRATION RATE > 60.0 (>42); GLUCOSE, FASTING 75 MG/DL (70-100); MAGNESIUM LEVEL 2.4 MG/DL (1.8-2.4); NT-PRO BNP 9807 PG/ML (<125); POTASSIUM SERUM 4.3 MEQ/L (3.5-5.1); PROSTATIC SPECIFIC AG MONITOR 0.64 NG/ML (< 4.00); SODIUM LEVEL 134 MEQ/L (136-145)
== END ==
LOC: M SHH 16:23
PROVIDERS: ATTEND Internal Medicine Advanced Heart Failure and Transplant Cardiology
DX: I50.43 Acute on chronic combined systolic (congestive) and diastolic (congestive) heart failure (principal); C61 Malignant neoplasm of prostate

== ENCOUNTER 2019-06-04 11:48 | Emergency (ER) | payer MEDICARE, OTHER ==
[~2019-06-04] VITALS: Ht 154.9 cm; Wt 47.7 kg
[~2019-06-04 11:48] MED LIST changes: -NAPR-837 PO; -SOMA350T PO
[2019-06-04] MEDS ORDERED: SPIR-10 PO (13:24)
[2019-06-04] MEDS ORDERED: METO25TA PO (13:24)
[2019-06-04] MEDS ORDERED: SOMA350T PO (13:34)
[2019-06-04] MEDS ORDERED: NAPR-837 PO (13:34)
[2019-06-04 14:05] VITALS: BP 101/53
== END 2019-06-04 14:07 | disposition home or self-care (01) ==
LOC: M ED 11:48
DX: M43.6 Torticollis (principal); I11.9 Hypertensive heart disease without heart failure; Z85.118 Personal history of other malignant neoplasm of bronchus and lung; Z88.0 Allergy status to penicillin; Z91.040 Latex allergy status; Z79.02 Long term (current) use of antithrombotics/antiplatelets; Z79.899 Other long term (current) drug therapy

== ENCOUNTER → 2019-06-08 | Outpatient (REF) | payer MEDICARE, OTHER ==
[~2019-06-08] MED LIST changes: +NAPR-837 PO; +SOMA350T PO
[2019-06-08 19:01] LABS: HEMOGLOBIN 14.4 g/dl (13.5-17.5); MEAN CORPUSCULAR HEMOGLOBIN 32.1 pg (27.0-33.0); MEAN CORPUSCULAR HGB CONC 31.3 g/dl (32.0-36.5); MEAN CORPUSCULAR VOLUME 102.4 fl (80.0-96.0); PLATELET COUNT, AUTOMATED 167 10^3/uL (150-450); RED BLOOD COUNT 4.49 10^6/uL (4.30-6.10); WHITE BLOOD COUNT 9.4 10^3/uL (4.0-10.0)
[2019-06-08 19:33] LABS: ALBUMIN 3.6 GM/DL (3.2-5.2); ALT/SGPT 28 U/L (12-78); BILIRUBIN,TOTAL 0.6 MG/DL (0.2-1.0); BLOOD UREA NITROGEN 46 MG/DL (7-18); CALCIUM LEVEL 8.5 MG/DL (8.8-10.2); CARBON DIOXIDE LEVEL 37 MEQ/L (21-32); CHLORIDE LEVEL 92 MEQ/L (98-107); CREATININE FOR GFR 0.69 MG/DL (0.70-1.30); GLOMERULAR FILTRATION RATE > 60.0 (>42); GLUCOSE, FASTING 135 MG/DL (70-100); MAGNESIUM LEVEL 2.6 MG/DL (1.8-2.4); NT-PRO BNP 15948 PG/ML (<125); POTASSIUM SERUM 3.9 MEQ/L (3.5-5.1); SODIUM LEVEL 135 MEQ/L (136-145); TOTAL PROTEIN 6.9 GM/DL (6.4-8.2)
== END ==
LOC: M LAB REF 17:24
PROVIDERS: ATTEND Nurse Practitioner
DX: I50.43 Acute on chronic combined systolic (congestive) and diastolic (congestive) heart failure (principal)

== ENCOUNTER → 2019-06-09 | Outpatient (REF) | payer MEDICARE, OTHER ==
[2019-06-09 19:47] LABS: HEMATOCRIT 47.7 % (42.0-52.0); HEMOGLOBIN 14.5 g/dl (13.5-17.5); MEAN CORPUSCULAR HGB CONC 30.4 g/dl (32.0-36.5); MEAN CORPUSCULAR VOLUME 102.1 fl (80.0-96.0); PLATELET COUNT, AUTOMATED 160 10^3/uL (150-450); RED BLOOD COUNT 4.67 10^6/uL (4.30-6.10); WHITE BLOOD COUNT 10.5 10^3/uL (4.0-10.0)
[2019-06-09 20:13] LABS: ALBUMIN 3.9 GM/DL (3.2-5.2); ALT/SGPT 28 U/L (12-78); BILIRUBIN,TOTAL 0.7 MG/DL (0.2-1.0); BLOOD UREA NITROGEN 41 MG/DL (7-18); CALCIUM LEVEL 8.8 MG/DL (8.8-10.2); CARBON DIOXIDE LEVEL 35 MEQ/L (21-32); CHLORIDE LEVEL 88 MEQ/L (98-107); CREATININE FOR GFR 0.61 MG/DL (0.70-1.30); GLOMERULAR FILTRATION RATE > 60.0 (>42); GLUCOSE, FASTING 93 MG/DL (70-100); MAGNESIUM LEVEL 2.5 MG/DL (1.8-2.4); NT-PRO BNP 18957 PG/ML (<125); POTASSIUM SERUM 3.4 MEQ/L (3.5-5.1); SODIUM LEVEL 132 MEQ/L (136-145); TOTAL PROTEIN 6.9 GM/DL (6.4-8.2)
== END ==
LOC: M SHH 18:40
PROVIDERS: ATTEND Internal Medicine Advanced Heart Failure and Transplant Cardiology
DX: I50.43 Acute on chronic combined systolic (congestive) and diastolic (congestive) heart failure (principal)

== ENCOUNTER 2019-06-12 09:43 | Inpatient (IN) | payer MEDICARE, OTHER ==
[~2019-06-12] VITALS: Ht 154.9 cm; Wt 47.2 kg
[~2019-06-12 09:43] MED LIST changes: -ACET-683 PO; -D3 22000 PO; +POTASSIUM CHLORIDE 10 MEQ SR TABLET PO SCH
[2019-06-12] MEDS ORDERED: ACET-683 PO (10:13)
[2019-06-12 10:14] LABS: BASO % 0.3 % (0.0-1.0); EOS # 0.1 10^3/uL (0.0-0.5); EOS % 0.6 % (0.0-3.0); HEMATOCRIT 48.8 % (42.0-52.0); HEMOGLOBIN 15.2 g/dl (13.5-17.5); LYMPH # 0.4 10^3/uL (1.5-5.0); LYMPH % 3.7 % (24.0-44.0); MEAN CORPUSCULAR HEMOGLOBIN 31.3 pg (27.0-33.0); MEAN CORPUSCULAR HGB CONC 31.1 g/dl (32.0-36.5); MEAN CORPUSCULAR VOLUME 100.6 fl (80.0-96.0); MONO # 0.9 10^3/uL (0.0-0.8); MONO % 7.9 % (0.0-5.0); NEUTROPHILS # 9.3 10^3/uL (1.5-8.5); PLATELET COUNT, AUTOMATED 153 10^3/uL (150-450); RED BLOOD COUNT 4.85 10^6/uL (4.30-6.10); WHITE BLOOD COUNT 10.7 10^3/uL (4.0-10.0)
--- NOTE | 2019-06-12 10:22 | REP ---
Portable chest, 10:04 a.m., single AP view with the patient sitting: Comparison is 04/05/2019. There is marked scoliosis convex right to with the thoracic spine obscuring almost the entire right hemithorax. This is unchanged. There is increased density inferiorly in the right lung of the right costophrenic angle is effaced. These findings suggest a right lower lobe effusion/infiltrate. There is increased density inferiorly in the left lung compatible with a left lower lobe infiltrate. The right upper lobe is obscured. The left upper lobe is clear. There is a right IJ central venous catheter with the tip in satisfactory position. There is a pacemaker. Impression: Bibasilar densities suggestive of effusion/infiltrate on the right and infiltrate on the left. Electronically Signed by Abhi [facility] MD 06/12/2019 10:14 A
[2019-06-12 10:27] LABS: INR 1.07; PROTHROMBIN TIME 13.6 SECONDS (11.8-14.0)
[2019-06-12 10:28] LABS: PARTIAL THROMBOPLASTIN TIME 28.3 SECONDS (25.0-38.4)
[2019-06-12 10:46] LABS: INFLUENZA A AMPLIFICATION NEGATIVE (NEGATIVE); INFLUENZA B AMPLIFICATION NEGATIVE (NEGATIVE)
[2019-06-12 10:50] LABS: ALBUMIN 3.8 GM/DL (3.2-5.2); ALT/SGPT 27 U/L (12-78); BILIRUBIN,DIRECT 0.4 MG/DL (0.0-0.2); BLOOD UREA NITROGEN 49 MG/DL (7-18); CALCIUM LEVEL 9.1 MG/DL (8.8-10.2); CARBON DIOXIDE LEVEL 36 MEQ/L (21-32); CHLORIDE LEVEL 88 MEQ/L (98-107); CK-MB VALUE MASS 7.9 NG/ML (<3.6); CPK CREATINE PHOSPHOKINASE 35 U/L (39-308); CREATININE FOR GFR 0.71 MG/DL (0.70-1.30); GLOMERULAR FILTRATION RATE > 60.0 (>42); GLUCOSE, FASTING 92 MG/DL (70-100); MB/CK RELATIVE INDEX 22.57 (< OR =4); NT-PRO BNP 19239 PG/ML (<125); POTASSIUM SERUM 4.2 MEQ/L (3.5-5.1); SODIUM LEVEL 132 MEQ/L (136-145); TOTAL PROTEIN 7.1 GM/DL (6.4-8.2)
[2019-06-12] MEDS ORDERED: FUROSEMIDE 40 MG/4 ML VIAL (J1940) IV ONE (11:00)
[2019-06-12 12:00] VITALS: BP 97/54
[2019-06-12] MEDS ORDERED: SLF 3 ML SYR IV PRN (12:15)
[2019-06-12] MEDS ORDERED: ASPI81CH33 PO (12:27)
[2019-06-12] MEDS ORDERED: TORS100T PO (12:27)
[2019-06-12] MEDS ORDERED: D3 22000 PO (12:27)
[2019-06-12] MEDS ORDERED: POTA10CA32 PO (12:27)
[2019-06-12] MEDS ORDERED: metOLazone 2.5 MG TAB PO PRN (14:00)
--- NOTE | 2019-06-12 14:09 | HPE ---
DATE OF ADMISSION: 06/12/2019 MARKETING RESEARCH COORDINATOR: Dr. Yadiel Adams. Patient follows also at the [facility] with Dr. Haque, Heart Failure Center. CHIEF COMPLAINT: Shortness of breath. HISTORY OF PRESENT ILLNESS: This is a 74-year-old DO NOT RESUSCITATE, trial of intubation, nonischemic cardiomyopathy with ejection fraction (EF) of 25% on chronic milrinone drip. Severe restrictive lung disease with right side and left-sided heart failure, systolic dysfunction. Presented to the emergency room with a 6-day history of worsening shortness of breath. Patient usually takes 100 mg of torsemide and was given five metolazone tablets on Saturday to take for the next 2 days without any improvement in his shortness of breath and with complaints of dizziness. So this was discontinued yesterday. Patient has had loss of about 2 pounds. The patient has had decreased appetite. No cough, nausea, vomiting, diarrhea, fever or chills. Complained of dizziness without lightheadedness. Patient has been sleeping on the couch, propped up with his lower extremities on two pillows on the back and has been complaining of a stiff neck. Patient has been compliant with a 1.5 liter fluid restriction according to the but usually eats home fries and canned soup. According to the , she uses a half a can of canned soup usually during the day with him and then meats and vegetables in the evening. According to her, she has been keeping an eye on the salt and has been buying mahnaz spaghetti sauce, low sodium type and usually uses 3/4 cups of this for him. Patient otherwise, denies any dysuria, urgency, or frequency, fever or chills. He was seen in the emergency room and found to have a pressure of 105, given one dos of Lasix 40 mg. He was afebrile with a temperature of 97.3. White count was 10, troponin was 1 with a total CK of 35, relative index of 22, which is chronic for him, according to the emergency room physician Dr. Mendoza. Chest x-ray shows bibasilar densities suggestive of effusion and infiltrate on the right and infiltrate on the left. BNP level was 19,239. Hospitalist was asked to admit for congestive heart failure, acute systolic and diastolic dysfunction with exacerbation. PAST MEDICAL HISTORY: Nonischemic cardiomyopathy with systolic and diastolic dysfunction. Ejection fraction of less than 25%. Not an left ventricular assisted device (LVAD) candidate or heart transplant candidate. Follows with Dr. Yadiel Adams in the office as well as Dr. Haque at the [facility]. On chronic milrinone infusion. History of transient ischemic attack (TIA), prostate cancer status post radiation desmoid tumor, status post resection, end-stage congestive heart failure, EF of less than 25% with automatic implantable cardioverter defibrillator (AICD). 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 Sees Dr. Olguin. Eczema, follows with [facility]. Hyperlipidemia, osteoporosis. PAST SURGICAL HISTORY: Recent surgery small bowel resection. Back surgery as a child. FAMILY HISTORY: Unremarkable. SOCIAL HISTORY: Denies alcohol recreational drug use or tobacco use. Lives with who is his healthcare proxy. He is DO NOT RESUSCITATE with trial of intubation. REVIEW OF SYSTEMS: Per history of present illness (HPI). 12-point system otherwise negative. PHYSICAL EXAMINATION: Temperature 97.3, pulse 91, respiratory 28, blood pressure 104/76, 97% on BiPAP. Generally, patient is awake, alert, oriented to person, place and time. Cachectic appearing with dextroscoliosis, wearing BiPAP. Positive jugular venous distention (JVD). No thyromegaly. Automatic implantable cardioverter defibrillator (AICD) in place. Diminished breath sounds with bilateral rales. HEART: S1, S2, sinus rhythm. Abdomen is soft, nontender, nondistended. Extremities: Muscle atrophy. Chronic edema secondary to history of polio. LABORATORY DATA: White count 10, hemoglobin 15, hematocrit 48, platelet count 153. Sodium 132, potassium 4, chloride 88, bicarbonate 36, BUN 49, creatinine 0.7, glucose 92, lactic acid 1.3. T-bilirubin 1, direct bilirubin 0.4, AST 39, ALT 27, alkaline phosphatase 132. Total CK 35, MB fraction 7.9, troponin of 1, BNP of 19,239. Total protein 7, albumin 3.8, TSH 1.84. Blood cultures are pending. Chest x-ray: Automatic implantable cardioverter defibrillator (AICD) pacemaker, bilateral densities suggestive of effusion. Infiltrate on the right and infiltrate on the left with right internal jugular central venous catheter with tip in satisfactory position and a pacemaker. ASSESSMENT/PLAN: This is a 74-year-old male with history of nonischemic cardiomyopathy with ejection fraction less than 25%, severe restrictive lung disease with systolic dysfunction on chronic milrinone due to low blood pressure presents with worsening shortness of breath and fluid overload. IMPRESSION: 1. Acute on chronic systolic and diastolic congestive heart failure exacerbation. Ejection fraction less than 25% o chronic milrinone drip. Patient will be admitted to telemetry progressive care unit (PCU), placed on Lasix every four hours milrinone drip. Net negative goal of 1 liter daily with strict input and output and daily weights. Fluid restriction of 1.5 liters and 2 grams salt diet. Personal Lines Account Executive, Dr. Delarosa is being consulted for further management. 2. Abnormal cardiac markers due to end-stage congestive heart failure with systolic and diastolic dysfunction. Treatment for heart failure with diuresis along with milrinone drip. Continue on aspirin 325 daily. 3. Recent transient ischemic attack (TIA) on chronic aspirin 325 mg daily 4. History of Staphylococcus lugdunensis with bacteremia from 2019 completed full course. No signs of acute infection currently. 5. Hyponatremia: Sodium of 132. No acute mental status changes. Patient is most likely secondary to hypervolemic state from congestive heart failure. Poor overall prognostic indicator. CODE STATUS: DO NOT RESUSCITATE, trial of intubation. MTDD
[2019-06-12] MEDS: ASPIRIN 81 MG CHEW TABLET PO SCH (14:40)
[2019-06-12] MEDS: DIGOXIN 0.125 MG TAB PO SCH (14:41)
[2019-06-12] MEDS: SLF 3 ML SYR IV SCH ×2 (14:42→20:41)
[2019-06-12] MEDS: MILRINONE/DEXTROSE 20 MG in IV 1 EA IV SCH ×3 (14:42→15:50)
[2019-06-12] MEDS ORDERED: ENOXAPARIN 40 MG/0.4 ML SYRINGE (J1650) SC ONE (15:00)
[2019-06-12 16:00] VITALS: BP 99/55
--- NOTE | 2019-06-12 16:59 | CR ---
DATE OF CONSULTATION: 06/12/2019 REFERRING PHYSICIAN: Dr. Andra Cordova INDICATION: Congestive heart failure. HISTORY OF PRESENT ILLNESS Mr. Flores is known to me. He is a patient of my partner Dr. Adams and he also follows in heart failure clinic in [facility]. He is an unfortunate 74-year-old man who has advanced nonischemic cardiomyopathy with severe left ventricular systolic dysfunction and recurrent hospitalizations for acutely exacerbated systolic congestive heart failure. He has chronic central line with infusion of milrinone that has been going on for several months. He was evaluated in congestive heart failure Center in [place] and felt not to be a candidate for any LV assist devices or cardiac transplantation. The principal reason is the fact that he has severe kyphoscoliosis and he had polio as a young man. After the admission, he was started on IV furosemide [id number] 40 mg every 6 hours, so far put out about 800 mL today which is much more than he normally does. He so far has not been feeling much better. He has been on C-PAP virtually constantly for last several days which is not much different compared to his baseline. PAST MEDICAL HISTORY 1. Nonischemic cardiomyopathy as above. He had a cardiac catheterization in 2013 which revealed borderline disease in distal right coronary artery and distal circumflex. He has been treated medically since and has not had any ischemic symptoms. His last left ventricular ejection fraction (LVEF) was calculated as 24% based on echocardiogram in February 2019. 2. Hyperlipidemia. 3. Degenerative joint disease. 4. He has a [employer] ICD. 5. Severe restrictive lung disease related to severe kyphoscoliosis. 6. Chronic renal insufficiency. 7. Obstructive sleep apnea (TAPAN) treated with BiPap and followed by Dr. Olguin. 8. History of GI bleeding with chronic iron deficiency anemia. 9. History of prostate cancer. PAST SURGICAL HISTORY Appendectomy, back surgery, ICD placement, tonsillectomy. FAMILY HISTORY Her his mother of heart failure and father had myocardial infarction. ALLERGIES: He reports allergies to PENICILLIN and LATEX. OUTPATIENT MEDICATIONS - Tylenol as needed - aspirin 81 a day - cetirizine 10 mg a day - digoxin 125 mcg every other day - metolazone 2.5 mg as needed and typically takes it about once a week - potassium 10 mEq a day - pravastatin 10 mg a day - spironolactone 25 mg a day - torsemide 100 mg daily - milrinone infusion in concentration 25 mcg per minute REVIEW OF SYSTEMS: Denies any recent fever, chills, nausea, vomiting or diarrhea. He does feel obviously short of breath. Denies any chest pain. Apparently had a lot of pain in the back of his neck in the last 2 weeks, more than usual. No genitourinary symptoms. He did develop peripheral edema. PHYSICAL EXAMINATION: Mr. Flores is a very pleasant man who appears chronically ill, does not look particularly acutely ill. He has his BiPap on but we to get off for short period of time and he seemed to tolerate that briefly. His jugular venous pressure is high. Lungs are difficult to assess due to his severe kyphoscoliosis, but I do appreciate a few crackles on the left and diminished breath sounds over right base. Heart: Exam reveals regular rhythm. I do not appreciate any gallop, but the heart sounds are very muffled behind respiratory sounds. There is a right tunneled IJ catheter that is infusing milrinone. Abdomen is soft, nontender. He does have about 2+ edema to his knees. Neurologically he is difficult to assess due to his severe kyphoscoliosis and polio but mentally is certainly alert and oriented and appropriate. LABORATORY Basic metabolic panel: Sodium 132, potassium 4.2, BUN 49, creatinine 8.7, glucose 92. AST 39, bilirubin 0.4, CK 35, CK-MB 7.9, troponin 1.0 and N terminal pro- BNP 19,000, albumin is 3.8, hemoglobin 15.2, hematocrit 45 and platelet count 153,000, WBC count is 10.7. Chest x-ray again is very challenging to interpret due to his deformity. PLAN Mr. Flores is a 74-year-old man with end-stage cardiomyopathy that is nonischemic but he has concomitant mild coronary artery disease. He presents with clear-cut volume overloaded state. According to his it started about a week or 10 days ago. He unfortunately already exhausted many of the options and there is not much more we can offer from therapeutic point of view. I do agree with administration of furosemide in current dose. So far the output has been satisfactory so I believe we can leave the dose unchanged, but if needs to be, the dose of furosemide can be increased further. As far as the milrinone is concerned, we will leave the concentration unchanged. Unfortunately he is not a good candidate for institution of vasodilators because his blood pressure chronically runs very low and in past he was intolerant. He is very well aware that his overall prognosis is poor, he is DO NOT INTUBATE (DNI), DO NOT RESUSCITATE (DNR) but he still wants to have aggressive medical therapy short of resuscitation. I will be signing off to Dr. Tilley, so if there are any complications please ask for his assistance over the weekend. I will be back on Saturday. NUVIA
[2019-06-12] MEDS: FUROSEMIDE 40 MG/4 ML VIAL (J1940) IV SCH (18:00)
[2019-06-12] MEDS: ACETAMINOPHEN 500 MG TAB PO PRN (18:11)
[2019-06-12 20:00] VITALS: BP 92/54
[2019-06-12] MEDS: PRAVASTATIN 10 MG TAB PO SCH (20:41)
[2019-06-12] MEDS: CETIRIZINE (ZyrTEC) 10 MG TAB PO SCH (20:41)
--- NOTE | 2019-06-12 21:53 | ECGEPIP ---
[facility] - ED Test Date: 2019-06-12 Pat Name: SHE QUIGLEY Department: Room: - Gender: Male Chemical Cell Changer: : 1945 Requested By: Tushar Pitts Order Number: [id number] Reading MD: Tushar Mendoza Measurements Intervals [place] Rate: 87 P: 57 WI: 206 QRS: -19 QRSD: 165 T: 51 QT: 362 QTc: 438 Interpretive Statements SINUS RHYTHM WITH FIRST DEGREE AV BLOCK INTRAVENTRICULAR CONDUCTION DELAY SIMILAR TO 03/27/19 Electronically Signed on 06-12-2019 21:52:41 EST by Tushar Mendoza
[2019-06-13] VITALS (9 sets, daily range): BP systolic 84–105; BP diastolic 50–62
[2019-06-13] MEDS: MILRINONE/DEXTROSE 20 MG in IV 1 EA IV SCH ×2 (02:25→14:59)
[2019-06-13] MEDS: ACETAMINOPHEN 500 MG TAB PO PRN ×3 (02:25→20:55)
[2019-06-13 05:49] LABS: BASO % 0.4 % (0.0-1.0); EOS # 0.1 10^3/uL (0.0-0.5); EOS % 1.2 % (0.0-3.0); HEMATOCRIT 44.4 % (42.0-52.0); HEMOGLOBIN 13.7 g/dl (13.5-17.5); LYMPH # 0.3 10^3/uL (1.5-5.0); LYMPH % 3.5 % (24.0-44.0); MEAN CORPUSCULAR HGB CONC 30.9 g/dl (32.0-36.5); MEAN CORPUSCULAR VOLUME 100.5 fl (80.0-96.0); MONO # 0.8 10^3/uL (0.0-0.8); MONO % 9.4 % (0.0-5.0); NEUTROPHILS # 7.3 10^3/uL (1.5-8.5); NEUTROPHILS % 85.1 % (36.0-66.0); PLATELET COUNT, AUTOMATED 139 10^3/uL (150-450); RED BLOOD COUNT 4.42 10^6/uL (4.30-6.10); WHITE BLOOD COUNT 8.6 10^3/uL (4.0-10.0)
[2019-06-13] MEDS: FUROSEMIDE 40 MG/4 ML VIAL (J1940) IV SCH ×5 (06:00→23:58)
[2019-06-13] MEDS: SLF 3 ML SYR IV SCH ×3 (06:09→20:56)
[2019-06-13 06:17] LABS: ALBUMIN 3.2 GM/DL (3.2-5.2); ALT/SGPT 24 U/L (12-78); BILIRUBIN,TOTAL 0.9 MG/DL (0.2-1.0); BLOOD UREA NITROGEN 50 MG/DL (7-18); CARBON DIOXIDE LEVEL 39 MEQ/L (21-32); CHLORIDE LEVEL 87 MEQ/L (98-107); CREATININE FOR GFR 0.68 MG/DL (0.70-1.30); GLOMERULAR FILTRATION RATE > 60.0 (>42); GLUCOSE, FASTING 111 MG/DL (70-100); POTASSIUM SERUM 2.9 MEQ/L (3.5-5.1); SODIUM LEVEL 131 MEQ/L (136-145); TOTAL PROTEIN 6.5 GM/DL (6.4-8.2)
[2019-06-13 08:03] LABS: C REACTIVE PROTEIN QUANTITATIV 2.92 MG/DL (0.00-0.30)
[2019-06-13] MEDS: ASPIRIN 81 MG CHEW TABLET PO SCH (08:45)
[2019-06-13] MEDS: ENOXAPARIN 40 MG/0.4 ML SYRINGE (J1650) SC SCH (08:46)
[2019-06-13] MEDS ORDERED: VANCOMYCIN HCL 1,000 MG, VIAL MATE ADAPTER 1 EACH in D5W 250 ML IV ONE (09:00)
[2019-06-13] MEDS ORDERED: POTASSIUM CHLORIDE 10 MEQ PO SCH (09:00)
[2019-06-13] MEDS ORDERED: NON-FORMULARY 1 EA EA IV SCH (09:00)
[2019-06-13 09:58] LABS: MAGNESIUM LEVEL 2.4 MG/DL (1.8-2.4)
[2019-06-13] MEDS ORDERED: POTASSIUM CHLORIDE 10 MEQ SR TABLET PO SCH (10:00)
[2019-06-13] MEDS ORDERED: ISOVUE-370 76% 100ML VIAL (Q9967) As Ordered ONE (10:30)
--- NOTE | 2019-06-13 11:17 | REP ---
Clinical: Bacteremia and the neck pain. Technique: Axial contrast enhanced images from the skull base to the thoracic inlet with coronal and sagittal re-formations using 100 ml Isovue 370 intravenous contrast material. Findings: Marked scoliotic curvature along with moderate osteopenia and moderate age-related multilevel degenerative spondylosis is appreciated. The vertebral bodies are intact and there is no evidence for fracture / compression injury. The intervertebral disc spaces show no obvious inflammatory change or abnormality to suggest acute diskitis. Spinal canal appears relatively patent and grossly normal. The paravertebral soft tissues demonstrate age-related changes and changes related to chronic scoliosis. No soft tissue mass lesion, significant mass effect, fluid collection or subcutaneous emphysema is appreciated to suggest acute inflammatory process. Impression: Chronic changes. No obvious acute process identified by CT evaluation. Electronically Signed by Fabio Nunez MD 06/13/2019 11:09 A
[2019-06-13] MEDS: POTASSIUM CHLORIDE 10 MEQ PO SCH ×2 (12:44→13:50)
[2019-06-13] MEDS ORDERED: SODIUM CHLORIDE 0.9% INJ 10 ML SYR IV PRN (18:45)
--- NOTE | 2019-06-13 18:47 | ECHO ---
DATE OF STUDY: 06/13/2019 REFERRING PHYSICIAN: Dr. Andra Cordova INDICATION: Bacteremia. HEIGHT: 61 inches WEIGHT: 51.4 kg 2D MEASUREMENTS: Aortic annulus: 2.0 cm Left atrium: 4.1 cm Aortic root: 3.1 cm Ventricular septum: 1.07 cm Posterior wall: 1.06 cm Left ventricle diastole: 4.3 cm Left ventricle systole: 4.0 cm Inferior vena cava: 2.2 cm with marked reduction of respiratory variation DOPPLER MEASUREMENTS: Mild aortic regurgitation. No aortic stenosis. Aortic valve velocity: 62.9 cm/s LVOT velocity: 49.0 cm/s Mild mitral regurgitation. No mitral stenosis. Mild tricuspid regurgitation. Estimated right ventricle systolic pressure: At least 62 mmHg, assuming a right atrial pressure of at least 20 mmHg Very mild pulmonic regurgitation. MITRAL ANNULAR TISSUE DOPPLER: E prime lateral: 8.7 cm/s DESCRIPTION: Probably atrial fibrillation, but suboptimal ECG recording. Moderately technically difficult echocardiogram. No pericardial effusion. This was a 2D, M-mode, color flow Doppler, and pulse wave Doppler examination, including mitral annular tissue Doppler. CONCLUSIONS: 1. A 1.3 cm x 1.3 cm mass which appears to be attached to one of the tricuspid leaflets, but the differential would include attachment to the implantable cardioverter-defibrillator (ICD) lead. This appeared on the right atrial side of the tricuspid valve. Most likely represents vegetation; however, the differential diagnosis would include thrombus. Mild tricuspid regurgitation. 2. Suggestive of severe elevation of estimated right ventricle systolic pressure. 3. Severe reduction in overall left ventricle systolic function. Multiple regional wall motion abnormalities. Paradoxical septal motion. Akinesis of the basal and mid anterior segments. Akinesis of the basal and mid inferior segments. Hypokinesis of the left ventricle apex. Hypokinesis of the mid anterolateral and mid inferolateral left ventricle (LV) segments. Normal contraction of the basal anterolateral and basal inferolateral segments. 4. 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 Suggestive of elevated central venous pressure of at least 20 mmHg. 5. Moderate aortic valve sclerosis of a three-cuspid aortic valve. Mild aortic regurgitation. No aortic stenosis. 6. Severe mitral annular calcification. Mild mitral regurgitation. No mitral stenosis. 7. No pericardial effusion. 8. Normal right ventricle size and systolic function. MTDD
--- NOTE | 2019-06-13 18:52 | IPN ---
DATE: 06/13/2019 The patient complains of persistent neck pain. Has had no difference in his shortness of breath, still tachypneic with respiratory rate of 20 to 24. The patient has diuresed minimal amount, 550 overnight, despite Lasix 40 mg IV every 6 hours and milrinone drip. Blood pressure remains low at 84 to 90 with mean arterial pressure of 65. The patient was found to have gram positive cocci in two sets of blood cultures, present on admission, was given intravenous vancomycin and sent for a CT of the neck to rule out discitis. The patient otherwise denies any complaints of chills. He was afebrile overnight and diuresed about 550, tolerating his diet well. No nausea or vomiting. No chest pain, pressure, tightness, palpitations, or lightheadedness. The patient denies any headaches or changes in vision. No neck rigidity but complains of neck pain. VITAL SIGNS: Temperature 97.3, pulse 86, respiratory rate 19, blood pressure 90/50, 92% on room air. GENERAL: The patient is awake, alert, and oriented to person, place and time. He has his bilevel positive airway pressure (BIPAP) on. He is cachectic appearing with dextroscoliosis. The patient has right internal jugular vein central venous catheter and pacemaker noted in left anterior chest. LUNGS: Generally, the patient has breath sounds at the right with crackles. No wheezing. HEART: S1, S2. Regular rate and rhythm. ABDOMEN: Soft, nontender, nondistended. EXTREMITIES: Muscle atrophy and chronic pitting edema. LABORATORY DATA: White count 8.6, hemoglobin 13, hematocrit 44, platelet count 139, admission platelet count 153. 85% neutrophils, sedimentation rate of 3. Sodium 131, potassium 2.9, chloride 87, bicarbonate 39, BUN 50, creatinine 0.68, glucose of 111, calcium 9, magnesium 2.4, total bilirubin 0.9, direct bilirubin 0.4, AST 37, ALT 24, alkaline phosphatase 115. Two sets of blood cultures with gram-positive cocci. Cervical spine CT on 06/13/2019 showed no acute obvious process seen on CT. ASSESSMENT AND PLAN: This is a 74-year-old male with nonischemic cardiomyopathy, systolic and diastolic dysfunction, ejection fraction of 25%. Not a heart transplant candidate. Follows with Dr. Yadiel Adams in the office, as well as Dr. Haque, [facility]. On chronic milrinone infusion. The patient has a history of transient ischemic attack, prostate cancer, status post radiation, end stage congestive heart failure (CHF) with AICD, polio, restrictive lung disease, organic brain syndrome, chronic BiPAP secondary to curvature of the spine from polio, sees Dr. Olguin, admitted due to complaints of worsening shortness of breath. He was found to have acute congestive heart failure (CHF) exacerbation with systolic and diastolic dysfunction. Chest x-ray on 06/12/2019 showed increased density inferiorly in the right lung and right costophrenic angle is effaced, suggesting right lower lobe effusion/infiltrate with increased density inferiorly in the left lung, compatible with left lower lobe infiltrate. The patient has a right IJ central venous catheter with tip in satisfactory position, bibasilar density suggestive of effusion, infiltrate on the right and on the left. The patient was afebrile. No complaints of cough. White count was 8.7, 10 on admission. The patient received intravenous Lasix throughout the night but remains with positive balance. No significant weight loss. Overnight, the patient's blood culture grew out gram-positive cocci. He is currently on intravenous vancomycin, awaiting a 2-D echo. He continues to complain of neck pain. CT shows no discitis. MRI could not be performed due to AICD. IMPRESSION: 1. Acute congestive heart failure (CHF) on chronic systolic and diastolic heart failure, ejection fraction of less than 25% on chronic milrinone drip, managed by [facility], Dr. Haque at the heart failure clinic. The patient is not a candidate for heart transplant. He is kept on a net negative goal, strict input and output, daily weights, and Lasix, fluid restriction of 1.5 liters and 2 gram salt diet. Frame Coverer, Dr. Delarosa, has been consulted for any changes in management. 2. Abnormal cardiac markers, most likely due to end stage heart failure with systolic and diastolic dysfunction. Currently being treated for congestive heart failure (CHF). 3. Gram-positive bacteremia. Currently on intravenous vancomycin with infiltrate found on chest x-ray. We will repeat chest x-ray to check for resolution of the heart failure. 2-D echo has been requested. Infectious disease consultation on Saturday. 4. Transient ischemic attack. On chronic aspirin. 5. History of Staphylococcus lugdunensis. Completed full course of antibiotics in 2008, currently with acute bacteremia, which is gram-positive as well. May be recurrent line infection versus endocarditis. We will obtain a 2-D echo. Per the patient's , transesophageal echo could not be performed due to patient's dextroscoliosis and poor cardiac function. The patient is DO NOT RESUSCITATE, trial of intubation. MTDD
[2019-06-13] MEDS: VANCOMYCIN HCL 750 MG, VIAL MATE ADAPTER 1 EACH in D5W 250 ML IV SCH (20:55)
[2019-06-13] MEDS: CETIRIZINE (ZyrTEC) 10 MG TAB PO SCH (20:55)
[2019-06-13] MEDS: PRAVASTATIN 10 MG TAB PO SCH (20:55)
[2019-06-14] VITALS (8 sets, daily range): BP systolic 84–108; BP diastolic 53–66
[2019-06-14] MEDS: ACETAMINOPHEN 500 MG TAB PO PRN ×2 (04:54→23:01)
[2019-06-14] MEDS: MILRINONE/DEXTROSE 20 MG in IV 1 EA IV SCH ×2 (04:54→19:40)
[2019-06-14 05:36] LABS: BASO # 0.1 10^3/uL (0.0-0.2); BASO % 0.7 % (0.0-1.0); EOS # 0.1 10^3/uL (0.0-0.5); EOS % 0.7 % (0.0-3.0); HEMOGLOBIN 14.4 g/dl (13.5-17.5); LYMPH # 0.4 10^3/uL (1.5-5.0); LYMPH % 3.7 % (24.0-44.0); MEAN CORPUSCULAR HEMOGLOBIN 30.4 pg (27.0-33.0); MEAN CORPUSCULAR HGB CONC 30.6 g/dl (32.0-36.5); MEAN CORPUSCULAR VOLUME 99.2 fl (80.0-96.0); MONO # 0.9 10^3/uL (0.0-0.8); MONO % 8.5 % (0.0-5.0); NEUTROPHILS # 8.6 10^3/uL (1.5-8.5); NEUTROPHILS % 85.6 % (36.0-66.0); PLATELET COUNT, AUTOMATED 147 10^3/uL (150-450); RED BLOOD COUNT 4.74 10^6/uL (4.30-6.10)
[2019-06-14] MEDS: FUROSEMIDE 40 MG/4 ML VIAL (J1940) IV SCH ×5 (06:00→22:59)
[2019-06-14 06:02] LABS: BLOOD UREA NITROGEN 56 MG/DL (7-18); CARBON DIOXIDE LEVEL 32 MEQ/L (21-32); CHLORIDE LEVEL 90 MEQ/L (98-107); CREATININE FOR GFR 0.82 MG/DL (0.70-1.30); GLOMERULAR FILTRATION RATE > 60.0 (>42); GLUCOSE, FASTING 92 MG/DL (70-100); MAGNESIUM LEVEL 2.3 MG/DL (1.8-2.4); POTASSIUM SERUM 5.5 MEQ/L (3.5-5.1); SODIUM LEVEL 132 MEQ/L (136-145)
[2019-06-14] MEDS: SLF 3 ML SYR IV SCH ×3 (06:06→21:18)
[2019-06-14] MEDS: VANCOMYCIN HCL 750 MG, VIAL MATE ADAPTER 1 EACH in D5W 250 ML IV SCH ×2 (10:10→21:18)
[2019-06-14] MEDS: SODIUM CHLORIDE 0.9% INJ 10 ML SYR IV SCH (10:10)
[2019-06-14] MEDS: DIGOXIN 0.125 MG TAB PO SCH (10:11)
[2019-06-14] MEDS: ASPIRIN 81 MG CHEW TABLET PO SCH (10:11)
[2019-06-14] MEDS: ENOXAPARIN 40 MG/0.4 ML SYRINGE (J1650) SC SCH (10:11)
--- NOTE | 2019-06-14 13:35 | IPNPDOC ---
Date Seen The patient was seen on 06/14/19. Progress Note SUBJECTIVE: Negative CT cervical spine for disciitis afebrile no chillls. c/o severe sob not diuresing well and sbp 90 mmHg despite milrinone. still positive balance. 2D echo: tricuspid valve mass ? thrombus vs vegetation on IV vanco. and increased to bid dosing lovenox 1mg/kg. no chest pain, pressure, lightheadedness, or dizziness . 8/10 neck pain after laid flat yesterday to weigh him daily. unable to sleep the rest of the night despite pain meds. OBJECTIVE: VITALS; PLS SEE BELOW GENERAL: The patient is awake, alert, and oriented to person, place and time. He has his bilevel positive airway pressure (BIPAP) on. He is cachectic appearing with dextroscoliosis. The patient has right internal jugular vein central venous catheter and pacemaker noted in left anterior chest. moderate distress with use of accessory muscles. not cyanotic LUNGS: Generally, the patient has breath sounds at the right with crackles. No wheezing. HEART: S1, S2. Regular rate and rhythm. ABDOMEN: Soft, nontender, nondistended. EXTREMITIES: Muscle atrophy and chronic pitting edema. LABORATORY DATA, IMAGING STUDIES, 2D ECHO: REVIEWED. Two sets of blood cultures with gram-positive cocci. Cervical spine CT on 06/13/2019 showed no acute obvious process seen on CT. ASSESSMENT AND PLAN: This is a 74-year-old male with nonischemic cardiomyopathy, systolic and diastolic dysfunction, ejection fraction of 25%. Not a heart transplant candidate. Follows with Dr. Yadiel Adams in the office, as well as Dr. Haque, [facility]. On chronic milrinone infusion. The patient has a history of transient ischemic attack, prostate cancer, status post radiation, end stage congestive heart failure (CHF) with AICD, polio, restrictive lung disease, organic brain syndrome, chronic BiPAP secondary to curvature of the spine from polio, sees Dr. Olguin, admitted due to complaints of worsening shortness of breath. He was found to have acute congestive heart failure (CHF) exacerbation with systolic and diastolic dysfunction. Chest x-ray on 06/12/2019 showed increased density inferiorly in the right lung and right costophrenic angle is effaced, suggesting right lower lobe effusion/infiltrate with increased density inferiorly in the left lung, compatible with left lower lobe infiltrate. The patient has a right IJ central venous catheter with tip in satisfactory position, bibasilar density suggestive of effusion, infiltrate on the right and on the left. The patient was afebrile. No complaints of cough. White count was 8.7, 10 on admission. The patient received intravenous Lasix throughout the night but remains with positive balance. No significant weight loss. Overnight, the patient's blood culture grew out gram-positive cocci. He is currently on intravenous vancomycin, awaiting a 2-D echo. He continues to complain of neck pain. CT shows no discitis. MRI could not be performed due to AICD. IMPRESSION: 1. Acute congestive heart failure (CHF) on chronic systolic and diastolic heart failure, ejection fraction of less than 25% on chronic milrinone drip, managed by [facility], Dr. Haque at the heart failure clinic. The patient is not a candidate for heart transplant. He is kept on a net negative goal, strict input and output, daily weights, and Lasix, fluid restriction of 1.5 liters and 2 gram salt diet. Strip Polisher, Dr. Delarosa, has been consulted for any changes in management. He remains in positive balance and no weight loss. discussed with pt and at the bedside of overall poor prognosis and they should consider hospice, but not ready yet. will give zaroxolyn and lasix q4hrs with holding parameters for sbp<90. N)ot a candidate for vasopressors. 2. 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 most likely infection with 2 sets of blood cultures showing Gram-positive bacteremia. Currently on intravenous vancomycin . Infectious disease consultation on Saturday.History of bacteremia with Staphylococcus lugdunensis.Completed full course of antibiotics in 2008, currently with acute bacteremia, May be recurrent line infection versus endocarditis. Per the patient's , transesophageal echo could not be performed due to patient's dextroscoliosis and poor cardiac function. 4. Transient ischemic attack. On chronic aspirin. 5. Neck pain. no disciitis on CT neck. unable to do an MRI due to AICD. The patient is DO NOT RESUSCITATE, trial of intubation. disposition: pending clinical improvement 4-5 days. needs palliative or hospice. poor overall prognosis. VS, I&O, 24H, Fishbone Vital Signs/I&O Vital Signs Date Time Temp Pulse Resp B/P (MAP) Pulse Ox O2 Delivery O2 Flow Rate FiO2 06/14/19 12:00 97.9 78 22 98/53 (68) 100 NIPPV (BIPAP/CPAP) I&O- Last 24 Hours up to 6 AM 06/14/19 06:00 Intake Total 975.2 ml Output Total 350 ml Balance 625.2 ml Laboratory Data 24H LABS Laboratory Tests 2 06/14/19 05:09: Immature Granulocyte % (Auto) 0.8, Neutrophils (%) (Auto) 85.6H, Lymphocytes (%) (Auto) 3.7L, Monocytes (%) (Auto) 8.5H, Eosinophils (%) (Auto) 0.7, Basophils (%) (Auto) 0.7, Neutrophils # (Auto) 8.6H, Lymphocytes # (Auto) 0.4L, Monocytes # (Auto) 0.9H, Eosinophils # (Auto) 0.1, Basophils # (Auto) 0.1, Nucleated Red Blood Cells % (auto) 0.0, Anion Gap 10, Glomerular Filtration Rate > 60.0, Calcium Level 9.0, Magnesium Level 2.3 CBC/BMP Laboratory Tests 06/14/19 05:09 Microbiology Microbiology 06/14/19 Blood Culture, Received Pending 06/14/19 Blood Culture, Received Pending 06/13/19 Blood Culture - Preliminary, Resulted 06/13/19 Blood Culture - Preliminary, Resulted 06/12/19 Blood Culture - Preliminary, Resulted 06/12/19 Blood Culture - Preliminary, Resulted PROSPER DOWNING MD Jun 14, 2019 13:26
[2019-06-14] MEDS: LIDOCAINE 5% (LIDODERM) PATCH TD SCH (13:54)
[2019-06-14] MEDS ORDERED: metOLazone 5 MG TAB PO ONE (14:00)
[2019-06-14] MEDS ORDERED: CALCIUM GLUCONATE 1,000 MG in D5W MINI-BAG PLUS 100 ML IV ONE (14:00)
[2019-06-14] MEDS ORDERED: SOD POLYSTYRENE SULFONATE SUSP 15 GM/60 ML UD PO ONE (15:00)
[2019-06-14] MEDS ORDERED: ACETAMINOPHEN *IV* 650 MG in IV 1 EA IV ONE (15:00)
[2019-06-14] MEDS ORDERED: ENOXAPARIN 60 MG/0.6 ML SYR (J1650) SC SCH (21:00)
[2019-06-14] MEDS: PRAVASTATIN 10 MG TAB PO SCH (21:17)
[2019-06-14] MEDS: CETIRIZINE (ZyrTEC) 10 MG TAB PO SCH (21:17)
[2019-06-14] MEDS: **NOTE PATIENT COMMENT** MISC XX SCH (21:18)
[2019-06-15] VITALS (10 sets, daily range): BP systolic 82–101; BP diastolic 52–66
[2019-06-15] MEDS: FUROSEMIDE 40 MG/4 ML VIAL (J1940) IV SCH ×3 (02:30→10:29)
[2019-06-15] MEDS: SLF 3 ML SYR IV SCH ×3 (05:44→21:17)
[2019-06-15 05:50] LABS: BASO # 0.1 10^3/uL (0.0-0.2); BASO % 0.6 % (0.0-1.0); EOS # 0.1 10^3/uL (0.0-0.5); EOS % 1.3 % (0.0-3.0); HEMATOCRIT 42.9 % (42.0-52.0); HEMOGLOBIN 13.3 g/dl (13.5-17.5); LYMPH # 0.4 10^3/uL (1.5-5.0); LYMPH % 4.3 % (24.0-44.0); MEAN CORPUSCULAR HEMOGLOBIN 30.9 pg (27.0-33.0); MEAN CORPUSCULAR VOLUME 99.5 fl (80.0-96.0); MONO # 0.9 10^3/uL (0.0-0.8); MONO % 9.8 % (0.0-5.0); NEUTROPHILS # 7.3 10^3/uL (1.5-8.5); PLATELET COUNT, AUTOMATED 128 10^3/uL (150-450); RED BLOOD COUNT 4.31 10^6/uL (4.30-6.10); WHITE BLOOD COUNT 8.8 10^3/uL (4.0-10.0)
[2019-06-15 06:13] LABS: BLOOD UREA NITROGEN 65 MG/DL (7-18); CALCIUM LEVEL 8.7 MG/DL (8.8-10.2); CARBON DIOXIDE LEVEL 31 MEQ/L (21-32); CHLORIDE LEVEL 91 MEQ/L (98-107); CREATININE FOR GFR 1.04 MG/DL (0.70-1.30); GLOMERULAR FILTRATION RATE > 60.0 (>42); GLUCOSE, FASTING 88 MG/DL (70-100); MAGNESIUM LEVEL 2.3 MG/DL (1.8-2.4); POTASSIUM SERUM 4.1 MEQ/L (3.5-5.1); SODIUM LEVEL 129 MEQ/L (136-145)
[2019-06-15] MEDS ORDERED: ISOVUE-370 76% 100ML VIAL (Q9967) As Ordered ONE (08:51)
--- NOTE | 2019-06-15 08:54 | IPN ---
DATE: 06/15/2019 Mr. Flores did not have a good weekend. Not only he did not accomplish much diuresis, but unfortunately there is an other diagnostic problem. His blood cultures were positive for a gram-positive cocci in clusters even though the identification has not been definite as yet and transthoracic echocardiogram revealed a mass on his tricuspid valve. In this setting it almost certainly indicates that he got infected most likely from the central line through which milrinone has been infused. I spoke with Dr. Cordova about further management of this issue. The patient today seem to be rather quiet even though he is clearly alert and oriented. He does not provide much feedback and he just listens to the bad news. Vital Signs otherwise: Blood pressure 91/52 and it has been in that range throughout. He is afebrile. Saturation is 97% on BiPAP and heart rate has been mostly in the 80s. He has relatively frequent supraventricular ectopy beats. I cannot even rule out that he has runs of atrial fibrillation or flutter. His fluid balance yesterday was recorded as positive 1300 because very little urine output was recorded even though he urinated. His jugular venous pulse (JVP) is difficult to last waxer with his body habitus but appears high. Lungs are relatively clear but again with his severe kyphoscoliosis, he is very hard to examine. Heart exam reveals very muffled heart sounds. I do not appreciate a murmur, gallop or rub. There is a tunneled central catheter through right internal jugular that is infusing milrinone. Abdomen is soft. Extremities: Still has 2+ edema. Neurologically he is intact. LABORATORY: CBC reveals WBC count 8.8, hemoglobin 13.3, hematocrit 42 and platelet count 128,000. Basic metabolic panel sodium 129, potassium 4.1, BUN 65, creatinine 1.0 and glucose 88. ASSESSMENT/PLAN: Mr. Flores is a very unfortunate man. He is a 74-year-old male who has longstanding history of nonischemic cardiomyopathy with severe systolic congestive heart failure on outpatient milrinone therapy under direction of the [facility] from [place]. Now he was hospitalized with another exacerbation and was found to have likely vegetation on tricuspid valve and several blood cultures are positive for Streptococcus. What is surprising to me is that he has never had any fever, chills and his white cell count is not elevated but he is probably severely immunocompromised from his advanced heart failure. spoke with Dr. Cordova about management of endocarditis. He is certainly not a candidate for transesophageal echocardiogram (REGIS) or open heart surgery and consequently we are going to be talking purely antibiotics. I believe that his central line has to be removed and she will make arrangement in that regard probably makes sense to put a peripherally inserted central catheter (PICC) line first and then if the antibiotics are successful in eliminating infection, then to put a new tunneled catheter. As far as the heart failure is concerned, he has not been receiving many doses of diuretics because of his low blood pressure. But this has been a chronic issue and consequently I think the dose can be liberated. I spoke with Dr. Cordova about this issue. It is likely that the infection certainly makes the treatment more difficult and his response is less convincing. Unfortunately on overall this indicated that his prognosis that was bad to start with is even worse and I am fearing that he may not survive his current ordeal, even in the short run. NUVIA
[2019-06-15 09:34] LABS: INR 1.04; PROTHROMBIN TIME 13.3 SECONDS (11.8-14.0)
[2019-06-15 09:35] LABS: PARTIAL THROMBOPLASTIN TIME 34.4 SECONDS (25.0-38.4)
--- NOTE | 2019-06-15 10:21 | REP ---
Clinical: Chest pain and hypoxia. Technique: Axial contrast enhanced images from the thoracic inlet to the upper abdomen with coronal and sagittal re-formations using pulmonary embolus technique. 75 ml Isovue 370 intravenous contrast material administered without complication. Findings: Satisfactory enhancement of the pulmonary vasculature is achieved and no filling defects are identified to suggest pulmonary embolus. Large right pleural effusion, small left pleural effusion, and lower lobe atelectasis/consolidations noted. Cardiomegaly is appreciated along with atherosclerotic changes to the thoracic aorta and coronary arteries. No pericardial effusion. No pneumothorax. Musculoskeletal structures demonstrate severe chronic scoliosis. Impression: 1. No pulmonary embolus. 2. Larger right pleural effusion, small left pleural effusion, and a lower lobe atelectasis/consolidations noted. Electronically Signed by Fabio Nunez MD 06/15/2019 10:13 A
[2019-06-15] MEDS: ASPIRIN 81 MG CHEW TABLET PO SCH (10:28)
[2019-06-15] MEDS: MILRINONE/DEXTROSE 20 MG in IV 1 EA IV SCH (10:29)
[2019-06-15] MEDS: SODIUM CHLORIDE 0.9% INJ 10 ML SYR IV SCH (10:30)
[2019-06-15] MEDS: LIDOCAINE 5% (LIDODERM) PATCH TD SCH (10:30)
[2019-06-15] MEDS: ACETAMINOPHEN 500 MG TAB PO PRN ×2 (10:47→21:16)
--- NOTE | 2019-06-15 12:08 | IPNPDOC ---
Date Seen The patient was seen on 06/15/19. Progress Note per Dr. Clemens's office, [facility], Heart Failure Clinic: -continue current milrinone iv gtt -trial of bumex iv gtt at 0.75/hr -at discharge, 8mg bumex bid -DNR/trial of intubation VS, I&O, 24H, Fishbone Vital Signs/I&O Vital Signs Date Time Temp Pulse Resp B/P (MAP) Pulse Ox O2 Delivery O2 Flow Rate FiO2 06/15/19 08:00 98.3 83 28 91/52 (65) 97 NIPPV (BIPAP/CPAP) I&O- Last 24 Hours up to 6 AM 06/15/19 06:00 Intake Total 1372.6 ml Output Total 125 ml Balance 1247.6 ml Laboratory Data 24H LABS Laboratory Tests 2 06/15/19 05:30: Immature Granulocyte % (Auto) 1.0, Neutrophils (%) (Auto) 83.0H, Lymphocytes (%) (Auto) 4.3L, Monocytes (%) (Auto) 9.8H, Eosinophils (%) (Auto) 1.3, Basophils (%) (Auto) 0.6, Neutrophils # (Auto) 7.3, Lymphocytes # (Auto) 0.4L, Monocytes # (Auto) 0.9H, Eosinophils # (Auto) 0.1, Basophils # (Auto) 0.1, Nucleated Red Blood Cells % (auto) 0.0, Anion Gap 7L, Glomerular Filtration Rate > 60.0, Calcium Level 8.7L, Magnesium Level 2.3 06/15/19 07:57: Vancomycin Level Trough 35.0*H 06/15/19 08:46: Prothrombin Time 13.3, Prothromb Time International Ratio 1.04, Activated Partial Thromboplast Time 34.4 CBC/BMP Laboratory Tests 06/14/19 20:16 06/15/19 05:30 Microbiology Microbiology 06/15/19 Blood Culture, Received Pending 06/15/19 Blood Culture, Received Pending 06/14/19 Blood Culture - Preliminary, Resulted No growth after 24 hours . All specim... 06/14/19 Blood Culture - Preliminary, Resulted No growth after 24 hours . All specim... 06/13/19 Blood Culture - Preliminary, Resulted 06/13/19 Blood Culture - Preliminary, Resulted 06/12/19 Blood Culture - Final, Complete Staphylococcus Lugdunensis 06/12/19 Blood Culture - Final, Complete Staphylococcus Lugdunensis PROSPER DOWNING MD Jun 15, 2019 12:07
--- NOTE | 2019-06-15 14:11 | IPN ---
DATE: 06/15/2019 The patient still complains of significant shortness of breath at rest and has not been out of bed since admission, afebrile. No complaints of chest pain, pressure, tightness, lightheadedness, dizziness. Telemetry shows sinus rhythm with a ventricular rate of 81 to 85. The patient is continued on milrinone drip 0.5 per hour and has not been diuresing well on intravenous Lasix every 4 hours. Current weight is 50.4 from 45.9 kg yesterday. The patient is requiring his bilevel positive airway pressure (BIPAP) at all times. He had been continued on intravenous vancomycin renally dosed by pharmacy due to Staphylococcus lugdunensis, the same bacteria that he had in 2007 with echocardiogram showing endocarditis with a large mass in the tricuspid valve. CT of the chest was negative for pulmonary embolism but with a large pleural effusion on the right and a small left pleural effusion. Per pharmacy, Bumex intravenous is unavailable at this time, may take until December to obtain. The patient did well on Bumex 0.75 per hour at [facility] and was discharged on 6 mg twice a day. PHYSICAL EXAMINATION: VITAL SIGNS: Temperature 98.3, pulse 83, respiratory rate 28, blood pressure 91/52, 97% on bilevel positive airway pressure (BIPAP). GENERAL: The patient is cachectic, bitemporal wasting, moderate respiratory distress, wearing his BiPAP. The patient does have an AICD, right IJ central venous catheter tip in the satisfactory position, pacemaker/AICD. LUNGS: Diminished breath sounds on the right with rales. Crackles in the left base. Air entry is diminished. Dextroscoliosis. HEART: S1, S2. Sinus rhythm. Pacer/AICD. ABDOMEN: Soft, nontender, nondistended. EXTREMITIES: Muscle atrophy due to chronic polio. 2+ pitting edema. LABORATORY DATA: White count 8.8, hemoglobin 13, hematocrit 42, platelet count 128. Sodium 129, potassium 4.0, chloride 91, bicarbonate 31, BUN 65, creatinine 1.04, glucose 88. Input 1360, output 0, positive 1360, current weight 50.[address] of the chest showed large right pleural effusion, small left pleural effusion, lower lobe atelectasis and consolidations noted. Cervical spine CT showed chronic changes, no obvious acute process identified. ASSESSMENT AND PLAN: This is a 74-year-old male with non ischemic cardiomyopathy, severe systolic congestive heart failure (CHF), ejection fraction less than 24%, followed by Dr. Sung Clemens at [facility] heart failure clinic, on chronic milrinone drip at 5 mcg per hour, presented with a 6 day history of worsening shortness of breath, paroxysmal nocturnal dyspnea, significant orthopnea with 2+ pitting edema. [place] [address] and was admitted for acute on chronic systolic and diastolic heart failure exacerbation. THe patient has had no significant output using Lasix intravenously despite milrinone drip, due to low blood pressure despite milrinone drip, he has been placed on fluid restriction 1.5 liters and 2 gram salt diet. ACTIVE ISSUES: 1. Acute on chronic systolic and diastolic heart failure, ejection fraction of less than 25% on chronic milrinone 5 mcg per hour, managed by Dr. Sung Clemens at [facility] in [place] heart failure clinic. THe patient was admitted to progressive care unit (PCU) under telemetry, had no significant urine output on Lasix 40 mg intravenously every 4 hours and has had more weight gain and persistent right sided pleural effusion, which is large. The patient has been kept on fluid restriction, 2 gram sodium diet. Per [facility], Dr. Clemens's office, the patient, during the previous admission responded well to 0.75 per hour of Bumex intravenous drip and was discharged on 6 mg of Bumex twice a day. They recommended no change in the milrinone IV drip at this time. Per [facility] pharmacy, we do not have any intravenous Bumex, which is back ordered and most likely will not receive any until December. He is currently changed from IV Lasix to Bumex 2 mg every 8 hours. 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 2. Staphylococcus lugdunensis endocarditis. Infectious disease has been consulted. Defer to Dr. Hudson for further recommendations. The patient has a right internal jugular central venous catheter, which will be discontinued after normal blood cultures and new peripherally inserted central catheter (PICC) line to be placed for prolonged IV antibiotics, as well as IV Natrecor. The patient cannot tolerate a transesophageal echocardiogram due to his dextroscoliosis and frail status with acute heart failure and significant hypoxic respiratory distress. 3. Neck pain. No discitis on CT of the neck. Unable to do MRI due to AICD and pacemaker. 4. CODE STATUS: DO NOT RESUSCITATE, trial of intubation. Poor overall prognosis. [facility] has reiterated that this is palliative treatment. THe patient is not a candidate for heart transplant or left ventricular assist device. MTDD
[2019-06-15] MEDS: BUMETANIDE 1 MG TAB PO SCH ×2 (16:48→21:16)
[2019-06-15] MEDS: CETIRIZINE (ZyrTEC) 10 MG TAB PO SCH (21:16)
[2019-06-15] MEDS: PRAVASTATIN 10 MG TAB PO SCH (21:16)
[2019-06-15] MEDS: **NOTE PATIENT COMMENT** MISC XX SCH (21:17)
[2019-06-16] MEDS: MILRINONE/DEXTROSE 20 MG in IV 1 EA IV SCH ×2 (01:02→14:56)
[2019-06-16] MEDS: ceFAZolin SOD 2 GM in IV 1 EA IV SCH ×3 (01:02→14:56)
[2019-06-16] MEDS: ACETAMINOPHEN 500 MG TAB PO PRN ×3 (02:29→20:28)
[2019-06-16 04:00] VITALS: BP 97/53
[2019-06-16] MEDS: SLF 3 ML SYR IV SCH ×2 (05:48→14:38)
[2019-06-16] MEDS: BUMETANIDE 1 MG TAB PO SCH ×3 (05:48→20:27)
[2019-06-16 06:33] LABS: BASO # 0.1 10^3/uL (0.0-0.2); BASO % 0.7 % (0.0-1.0); EOS # 0.1 10^3/uL (0.0-0.5); EOS % 1.3 % (0.0-3.0); HEMATOCRIT 42.1 % (42.0-52.0); HEMOGLOBIN 13.1 g/dl (13.5-17.5); LYMPH # 0.4 10^3/uL (1.5-5.0); LYMPH % 5.7 % (24.0-44.0); MEAN CORPUSCULAR HEMOGLOBIN 30.8 pg (27.0-33.0); MEAN CORPUSCULAR HGB CONC 31.1 g/dl (32.0-36.5); MEAN CORPUSCULAR VOLUME 99.1 fl (80.0-96.0); MONO # 0.9 10^3/uL (0.0-0.8); MONO % 11.6 % (0.0-5.0); NEUTROPHILS % 79.8 % (36.0-66.0); PLATELET COUNT, AUTOMATED 145 10^3/uL (150-450); RED BLOOD COUNT 4.25 10^6/uL (4.30-6.10); WHITE BLOOD COUNT 7.5 10^3/uL (4.0-10.0)
[2019-06-16 06:53] LABS: BLOOD UREA NITROGEN 69 MG/DL (7-18); CALCIUM LEVEL 8.4 MG/DL (8.8-10.2); CARBON DIOXIDE LEVEL 32 MEQ/L (21-32); CHLORIDE LEVEL 89 MEQ/L (98-107); CREATININE FOR GFR 1.02 MG/DL (0.70-1.30); GLOMERULAR FILTRATION RATE > 60.0 (>42); GLUCOSE, FASTING 83 MG/DL (70-100); MAGNESIUM LEVEL 2.3 MG/DL (1.8-2.4); POTASSIUM SERUM 3.4 MEQ/L (3.5-5.1); SODIUM LEVEL 129 MEQ/L (136-145)
[2019-06-16 06:54] LABS: ERYTHROCYTE SEDIMENTATION RATE 6 mm/hr (0-20)
[2019-06-16 08:00] VITALS: BP 98/54
--- NOTE | 2019-06-16 08:04 | IPN ---
DATE: 06/16/2019 Mr. Flores is feeling about the same. He has been virtually all the day and night with his BiPap. This morning, I was able to talk to him briefly without his machine on. The situation is unchanged. He is short of breath with minimal exertion. He did not have any fever or chills. His neck pain is a little bit better. Vital Signs: Blood pressure 97/53. Heart rate 70s and 80s. He is afebrile. Saturation is 94-96% on his BiPap. Fluid balance yesterday was recorded about positive 120. According to his , he made about 600 mL of urine. Weight has not been recorded this morning as yet. He is alert, oriented and appropriate. His jugular venous pulse (JVP) is elevated. Lungs are relatively clear, though I do not appreciate any distinct crackles, wheezing or rhonchi. Heart exam reveals a regular rhythm. Very muffled heart sounds. With his severe kyphoscoliosis, it is challenging to auscultate him properly, but I do not appreciate any murmurs as such. Neither rub or gallop. Abdomen is soft. Extremities have 2 to 3+ edema and that includes upper extremities as well. Laboratories: WBC count 7.5, hemoglobin 13, hematocrit 42 and platelet count 145,000. Basic metabolic panel: Sodium 129, potassium 3.4, BUN 69, creatinine 1, and glucose 83. Vancomycin trough was very high. ASSESSMENT/PLAN: Mr. Flores is a very unfortunate 74-year-old man who has a lot of medical problems. 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 He is growing Staphylococcus lugdunensis from his initial two cultures on June 12. The choices of antibiotics are directed by infectious disease (ID) service. To my astonishment though, he remains afebrile and his white cell count is not elevated. Unfortunately, he is not a candidate for surgical intervention and I do not believe that he will tolerate even extraction of his ICD. Consequently, he will be left with really senior care antibiotic treatment. His blood cultures from 06/14 have been so far negative after 48 hours, so I believe it should be possible to get him a PICC line today and remove his tunneled central line. Otherwise, his heart failure medications will be continued. Apparently, the attending physician discussed with his heart failure specialist in [place] who recommended using Bumex in place of furosemide. So far, it has not seemed to make a big difference, but I do hope that his situation might improve some once the infection gets under better control. Overall, his prognosis unfortunately is not good. NUVIA
[2019-06-16] MEDS: ASPIRIN 81 MG CHEW TABLET PO SCH (09:35)
[2019-06-16] MEDS: POTASSIUM CHLORIDE 10 MEQ SR TABLET PO SCH ×2 (09:36→20:31)
[2019-06-16] MEDS: LIDOCAINE 5% (LIDODERM) PATCH TD SCH (09:37)
[2019-06-16] MEDS: SODIUM CHLORIDE 0.9% INJ 10 ML SYR IV SCH ×2 (09:38→18:41)
[2019-06-16] MEDS: DIGOXIN 0.125 MG TAB PO SCH (09:53)
[2019-06-16 12:00] VITALS: BP 90/55
[2019-06-16] MEDS ORDERED: metOLazone 2.5 MG TAB PO PRN (13:45)
[2019-06-16] MEDS ORDERED: LIDOCAINE 1% MDV 20ML VIAL As Ordered ONE (15:13)
[2019-06-16 16:00] VITALS: BP 95/50
[2019-06-16] MEDS ORDERED: SODIUM CHLORIDE 0.9% INJ 10 ML SYR IV PRN (17:00)
--- NOTE | 2019-06-16 17:02 | IPNPDOC ---
Subjective Date Seen The patient was seen on 06/16/19. Subjective Chief Complaint/HPI Manuel is sob lying in bed, He has had no significant UOP with oral bumex, his UOP has continued to gradually decline Objective Physical Examination General Exam: Positive: Mild Distress Eye Exam: Negative: Sclera icteric Neck Exam: Positive: JVD Chest Exam: Positive: Diminished Heart Exam: Positive: Tachycardic Telemetry: Positive: No significant arrhythmia Abdomen Exam: Positive: Normal bowel sounds Extremity Exam: Positive: Edema; Negative: Clubbing, Cyanosis Psych Exam: Positive: Mental status NL Assessment /Plan Assessment # Acute on chronic combined systolic + diastolic CHF # Hypokalemia - continue milirone gtt - bumex tid, and add zaroxylyn prn daily - K dur 40 mEq bid - am labs - agree with cardiology that he may not survive this hospitalization # Acute hypoxic respiratory failure due to CHF - bipap prn # Staph L. bacteremia - repeat b.cx 06/14, 06/15 are no growth to date. - presently on rifampin + cefazolin - Dr. Hudson following - RIJ TLC to be removed today - place picc line DVT prophylaxis: start sq hep in am Plan/VTE VTE Prophylaxis Ordered?: Yes VTE Exclusion Mechanical Proph: N/A:VTE Prophy Ordered VTE Exclusion Pharmacological: N/A:VTE Prophy Ordered VS, I&O, 24H[facility] Sign[facility]/I&O Vital Signs Date Time Temp Pulse Resp B/P (MAP) Pulse Ox O2 Delivery O2 Flow Rate FiO2 06/16/19 16:10 80 20 93 NIPPV (BIPAP/CPAP) 06/16/19 16:00 99.3 95/50 (65) I&O- Last 24 Hours up to 6 AM 06/16/19 05:59 Intake Total 394 ml Output Total 250 ml Balance 144 ml Laboratory Data 24H LABS Laboratory Tests 2 06/16/19 05:56: Immature Granulocyte % (Auto) 0.9, Neutrophils (%) (Auto) 79.8H, Lymphocytes (%) (Auto) 5.7L, Monocytes (%) (Auto) 11.6H, Eosinophils (%) (Auto) 1.3, Basophils (%) (Auto) 0.7, Neutrophils # (Auto) 6.0, Lymphocytes # (Auto) 0.4L, Monocytes # (Auto) 0.9H, Eosinophils # (Auto) 0.1, Basophils # (Auto) 0.1, Nucleated Red Blood Cells % (auto) 0.0, Erythrocyte Sedimentation Rate 6, Anion Gap 8, Gl omerular Filtration Rate > 60.0, Calcium Level 8.4L, Magnesium Level 2.3 CBC/BMP Laboratory Tests 06/16/19 05:56 Microbiology Microbiology 06/15/19 Blood Culture - Preliminary, Resulted No growth after 24 hours . All specim... 06/15/19 Blood Culture - Preliminary, Resulted No growth after 24 hours . All specim... 06/14/19 Blood Culture - Preliminary, Resulted No Growth after 48 hours. All Specime... 06/14/19 Blood Culture - Preliminary, Resulted No Growth after 48 hours. All Specime... 06/13/19 Blood Culture - Final, Complete Staphylococcus Lugdunensis 06/13/19 Blood Culture - Final, Complete Staphylococcus Lugdunensis 06/12/19 Blood Culture - Final, Complete Staphylococcus Lugdunensis 06/12/19 Blood Culture - Final, Complete Staphylococcus Lugdunensis DIGNA ALVARADO MD Jun 16, 2019 17:02
--- NOTE | 2019-06-16 17:46 | IPN ---
DATE: 06/16/2019 SUBJECTIVE: The patient reports he is feeling about the same today. He is continually using his bilevel positive airway pressure (BiPAP) more often than not as he feels he is short of breath and he feels he needs it. His is concerned about his BiPAP use. Urine output is not great. It was documented as 0 over the past two days but his is keeping track and notes that it has not gone above about 300 mL. The patient denies any fevers, chills, nausea, vomiting, or diarrhea. He does have constipation. He is seen today after going down to interventional radiology (IR) for peripherally inserted central catheter (PICC) line placement. He is complaining that he feels that his PICC line is bleeding. Otherwise, he has no complaints today and he seems to have tolerated his change in antibiotics well. The patient does also report he had some abdominal cramps and feels his abdomen is somewhat tender. OBJECTIVE: His vital signs are temperature 99.3, pulse of 80, respiratory rate of 28, blood pressure 95/50 with mean arterial pressure (MAP) of 65, pulse oximetry is 94% and his on the bilevel positive airway pressure (BiPAP) at the time of measurement. His intake and output are recorded as total output yesterday of 375, total output today of 300. His urine output was recorded as 375 mL and 300 mL respectively. He has had four bowel movements yesterday and two bowel movements today. GENERAL: He is laying in bed. He is calm, cooperative. He does not appear in any acute distress. He is currently using the BiPAP mask. He is answering all questions appropriately and his is at the bedside. HEENT: He is normocephalic, atraumatic. Mucous membranes are moist. His sclerae are nonicteric. NECK: Supple with no lymphadenopathy. No thyromegaly. CHEST: He has even chest rise. He still has the indwelling central line catheter on the right chest wall. LUNGS: Somewhat diminished bilaterally. No adventitious breath sounds can really be appreciated. HEART: He is regular rate and rhythm, somewhat muffled but no murmurs, rubs or gallops can be discernable. ABDOMEN: He is somewhat tender in the left lower quadrant, otherwise soft and nontender in other quadrants. Positive bowel sounds. No masses or organomegaly. BACK: He has extreme, severe kyphoscoliosis but nontender. There is no costovertebral angle (CVA) tenderness. EXTREMITIES: He has 2+ pitting edema in his lower extremities bilaterally. In addition, he has about 1 to 2+ pitting edema in his upper extremities. The site of his peripherally inserted central catheter (PICC) line placement is showing signs of bleeding. LYMPHATICS: He has no enlarged lymph nodes in his posterior, cervical or femoral areas. SKIN: He has no new rashes. ASSESSMENT AND PLAN: This is a 74-year-old man with: 1. 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 2. Severe congestive heart failure. 3. 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 PLAN: We will continue the patient on cefazolin and rifampin. Despite his penicillin allergy, there was no cross reactivity and he reports he has been tolerating the antibiotics well. We will not be starting the patient on gentamicin as his cultures most recently have been negative and if we were to give gentamicin in addition to the other medications as well as his aggressive diuresis, he would probably risk nephrotoxicity, so therefore the decision was made not to give him gentamicin at this time. We are going to look into having surgery come in and remove his central line from his chest wall as this may also have been a nidus of infection. It is tunneled catheter so nursing reports that they can not do it, so therefore surgery would be the most appropriate people to call to have it removed. Again, as mentioned before, the patient is likely not a good surgical candidate to have his automatic implantable cardioverter defibrillator (AICD) removed and the source of his endocarditis is mostly likely from his AICD. We will continue the current management. I have added a probiotic for his abdominal cramping and constipation and we will continue to monitor the patient. NUVIA
[2019-06-16] MEDS: LACTOBACILLUS ACIDOPHILUS CAP (BACID) PO SCH (18:41)
[2019-06-16 20:00] VITALS: BP 101/60
--- NOTE | 2019-06-16 20:02 | REP ---
Procedure: PICC line insertion with Jenn The procedure was performed under the direct supervision of Dr. Ramirez. The risks and benefits of the procedure were explained to the patient and informed consent was obtained by the healthcare proxy. The right basilic vein was localized using ultrasound guidance. The skin was prepped and draped in a sterile fashion. 1% lidocaine was used as a local anesthetic. Using ultrasound guidance the basilic vein was cannulated and a 0.018 guidewire was inserted and advanced to the SVC using fluoroscopic guidance. The needle was removed and a 5.5 [place] dilator and peel-away sheath was inserted over the guide wire. A 5.5 [place] dual lumen catheter was cut to length of 33 cm. The dilator was removed and the catheter was inserted over the guide wire with the tip ending in the SVC. The peel-away sheath was removed and the catheter was flushed with heparinized saline as per Hospital protocol. The catheter was affixed to the skin and a sterile dressing was applied. The patient tolerated the procedure well and there were no immediate complications. 0.2 minutes of fluoro time was utilized for this procedure. Electronically Signed by SKIP Chung 06/16/2019 04:39 P Electronically Signed by Don Ramirez MD 06/16/2019 07:53 P
[2019-06-16] MEDS: PRAVASTATIN 10 MG TAB PO SCH (20:28)
[2019-06-16] MEDS: CETIRIZINE (ZyrTEC) 10 MG TAB PO SCH (20:28)
[2019-06-16] MEDS: **NOTE PATIENT COMMENT** MISC XX SCH (21:00)
[2019-06-16 23:59] VITALS: BP 100/56
[2019-06-17] MEDS: SLF 3 ML SYR IV SCH ×4 (00:39→22:00)
[2019-06-17] MEDS: ceFAZolin SOD 2 GM in IV 1 EA IV SCH ×4 (00:39→23:44)
[2019-06-17 04:00] VITALS: BP 100/55
[2019-06-17] MEDS: SODIUM CHLORIDE 0.9% INJ 10 ML SYR IV SCH ×3 (04:57→16:49)
[2019-06-17] MEDS: MILRINONE/DEXTROSE 20 MG in IV 1 EA IV SCH ×2 (04:58→21:51)
[2019-06-17 05:56] LABS: BASO # 0.1 10^3/uL (0.0-0.2); BASO % 0.7 % (0.0-1.0); EOS # 0.1 10^3/uL (0.0-0.5); EOS % 0.9 % (0.0-3.0); HEMATOCRIT 41.4 % (42.0-52.0); HEMOGLOBIN 13.4 g/dl (13.5-17.5); LYMPH # 0.4 10^3/uL (1.5-5.0); LYMPH % 4.7 % (24.0-44.0); MEAN CORPUSCULAR HEMOGLOBIN 31.3 pg (27.0-33.0); MEAN CORPUSCULAR HGB CONC 32.4 g/dl (32.0-36.5); MEAN CORPUSCULAR VOLUME 96.7 fl (80.0-96.0); MONO # 0.9 10^3/uL (0.0-0.8); MONO % 12.5 % (0.0-5.0); NEUTROPHILS % 80.5 % (36.0-66.0); PLATELET COUNT, AUTOMATED 143 10^3/uL (150-450); RED BLOOD COUNT 4.28 10^6/uL (4.30-6.10); WHITE BLOOD COUNT 7.4 10^3/uL (4.0-10.0)
[2019-06-17 06:28] LABS: CALCIUM LEVEL 8.1 MG/DL (8.8-10.2); CREATININE FOR GFR 1.49 MG/DL (0.70-1.30); GLOMERULAR FILTRATION RATE 49.2 (>42); MAGNESIUM LEVEL 2.2 MG/DL (1.8-2.4); POTASSIUM SERUM 4.5 MEQ/L (3.5-5.1)
[2019-06-17] MEDS: BUMETANIDE 1 MG TAB PO SCH (06:36)
[2019-06-17 08:00] VITALS: BP 100/58
--- NOTE | 2019-06-17 08:36 | IPN ---
DATE OF SERVICE: 06/17/2019 Mr. Flores is about the same as he was yesterday. He had a peripherally inserted central catheter (PICC) line placed, but the central catheter has not been removed as yet. He continues to be short of breath and has been on BiPap virtually all the time. He also complains about ongoing neck pain even though its flexure is in intensity on and off. Otherwise on physical exam he is alert, oriented and appropriate. Vital Signs: Blood pressure 100/55, has been in the same range for most of the time. Heart rate has been 70s and 80s. He is afebrile. Saturation is in low to mid 90s on BiPap. Fluid balance yesterday was recorded negative 200. Documented output was 1125 of urine, but his is disputing this figure and believes that the urine output was actually a lot lower than that and she usually takes meticulous documentation. Weight is recorded as 54 in the chair scale which would actually represent gain of weight. His jugular venous pulse (JVP) is high. Lungs are relatively clear, but examination is very difficult with his severe kyphoscoliosis. Heart exam again with muffled heart sounds. I do not appreciate any gallop, rub or murmur, but very difficult to appreciate. He has diffuse edema, both upper and lower extremities, which in my opinion is getting worse. Laboratories: WBC count 7.4, hemoglobin 13.5, hematocrit 41.4 and platelet count 143,000. Basic metabolic panel with sodium 130, potassium was 4.5, BUN 72, creatinine 1.5 which is a significant increase since yesterday, and glucose 86. ASSESSMENT/PLAN: Mr. Flores is very unfortunate gentleman. He is a 74-year-old man who has severe nonischemic cardiomyopathy with severe left ventricular systolic dysfunction and both left-sided and right-sided congestive heart failure. He has been on chronic milrinone infusion and variable doses of diuretics and currently he was admitted with fluid retention and in my opinion very unexpectedly was found to have vegetation on tricuspid valve. Unfortunately, he is not a candidate for any invasive intervention and consequently purely medical management will be pursued. He is growing Staphylococcus lugdunensis which fortunately is sensitive to most antibiotics. The management as far as the antibiotic treatment is as per infectious disease (ID) service. He has been receiving cephazolin every 8 hours. To my surprise he never was febrile and there is no white cell count elevation, which I believe most likely represents the fact that his immune system is for the most part exhausted. The patient is not happy with his urine output and he asked me to consider changing the Bumex which I think is not unreasonable so I will replace it back with IV Lasix and will just give him higher doses compared to prior. Unfortunately, I remain rather pessimistic about his prognosis, but obviously will support his treatment with the exception of invasive measures and intubation.
[2019-06-17] MEDS: LACTOBACILLUS ACIDOPHILUS CAP (BACID) PO SCH (09:07)
[2019-06-17] MEDS: ASPIRIN 81 MG CHEW TABLET PO SCH (09:07)
[2019-06-17] MEDS: ACETAMINOPHEN 500 MG TAB PO PRN ×2 (09:08→21:08)
[2019-06-17] MEDS: POTASSIUM CHLORIDE 10 MEQ SR TABLET PO SCH (09:09)
[2019-06-17] MEDS: LIDOCAINE 5% (LIDODERM) PATCH TD SCH (09:10)
[2019-06-17] MEDS ORDERED: LIDOCAINE 1% MDV 20ML VIAL As Ordered ONE (09:39)
[2019-06-17 12:00] VITALS: BP 101/59
[2019-06-17] MEDS ORDERED: CHLOROTHIAZIDE 500 MG VIAL (J1205 PER 1) IV ONE (12:00)
[2019-06-17] MEDS ORDERED: FUROSEMIDE 40 MG/4 ML VIAL (J1940) IV ONE (12:00)
[2019-06-17] MEDS ORDERED: FUROSEMIDE injection 250 MG in D5W 225 ML IV SCH (13:00)
[2019-06-17] MEDS ORDERED: FUROSEMIDE 100 MG/10 ML VIAL (J1940) IV SCH (14:00)
--- NOTE | 2019-06-17 14:05 | CR ---
DATE OF CONSULTATION: 06/15/2019 INFECTIOUS DISEASE CONSULTATION: Asked to consult by hospitalist, Dr. Cordova, for evaluation of Staphylococcus lugdunensis bacteremia and tricuspid valve endocarditis. HISTORY OF PRESENT ILLNESS: Mr. Flores is a pleasant unfortunate 74-year-old gentleman with a history of nonischemic cardiomyopathy with severe left ventricular diastolic dysfunction and recurrent hospitalization for acute exacerbation of systolic congestive heart failure. His ejection fraction is 25%. Patient was evaluated at [facility] for a cardiac transplantation or a left ventricular assist device (LVAD), but he was not felt to be a candidate. He has been on an IV milrinone drip since February through a central line in his right subclavian vein. The reason for him not being a candidate for cardiac transplant is his severe kyphoscoliosis from poliomyelitis as a child. Patient was discharged from [facility] on 03/17/2019 with a central line for milrinone drip. On 03/26/2019, he was hospitalized with a transient ischemic attack (TIA) to [facility] and was found to have bacteremia with Staphylococcus lugdunensis on 03/26/2019 and 03/27/2019. Had a transthoracic echocardiogram, which did not show a vegetation. He was discharged home on 03/30/2019 with IV daptomycin to receive treatment for a total of 2 weeks. Patient was re-hospitalized 3 days later, on 04/02/2019, with a gastrointestinal (GI) bleed and he finished his course of daptomycin on 04/13/2019. Blood cultures done on 04/02/2019 were negative. He denied having any fever or chills during this hospitalization or previous hospitalization. The patient was hospitalized this time with severe neck pain and worsening shortness of breath, but what mostly bothered him was the excruciating neck pain for which he was seen in the emergency room a week prior as well. He has been afebrile for the past 3 days. He had blood cultures drawn on admission for evaluation of his neck pain and a white count was 10.7. He was started on IV vancomycin on 06/13/2019 after the blood cultures returned positive. He had repeat blood cultures done on 06/12/2019. Two sets were positive for Staphylococcus lugdunensis. On 06/13/2019, blood cultures were again positive before he was started on antibiotics; and on 06/14/2019, two sets were negative after 24 hours of antibiotics. He denies any nausea, vomiting, diarrhea, abdominal pain. No chest pain. Shortness of breath is severe , Patient uses bilevel positive airway pressure (BiPAP) at night at home, but he is using it during the day in the hospital. He denies any rashes. He has chronic weakness, severe kyphoscoliosis, a previous history of polio which limits his movement. ALLERGIES: PENICILLIN, which he recalls as having a rash when he was younger, but he was not 100% percent sure if it was penicillin related or viral. He recalls using a cephalosporin that he was told had a cross reactivity with penicillin of at 5% and he had received it many years ago for cellulitis, seems to be for possibly for KEFLEX and LATEX ALLERGY. MEDICATIONS: - vancomycin 750 mg IV every 12 hours - aspirin 81 mg daily - Bumex 2 mg by mouth every 8 hours - calcium gluconate IV - heparin flushes - Kayexalate 15 grams by mouth once - digoxin 0.125 mg every other day - furosemide 40 mg IV every 6 hours - Lovenox 40 mg subcu daily - milrinone drip - Tylenol as needed Vancomycin was started on 06/13/2019. LABS: White count 8.8, hemoglobin 13.3, hematocrit 42.9, platelets 128, 83% neutrophils, 4% lymphocytes, 10% monocytes, ESR 3. Sodium 129, potassium 4.1, chloride 91, bicarbonate 31, BUN 65, creatinine 1.04, glucose 88, calcium 8.7, magnesium 2.3, CRP 2.93, AST 37, ALT 24, alkaline phosphatase 115, albumin 3.2. Vancomycin trough on 06/15/2019 was 35 at 7 a.m. Influenza A and B were negative on 06/12/2019. IMAGING: CT angiogram done on 06/15/2019 was satisfactory, showing no pulmonary embolism but a large right pleural effusion and a small left pleural effusion and lower lobe atelectasis/consolidations. CT of the cervical spine done for severe neck pain shows marked scoliosis of the spine, moderate osteopenia, chronic changes with no obvious acute process identified by CT with contrast to rule out infectious process in the neck. Chest x-ray shows a right internal jugular (IJ) central venous catheter with the tip in satisfactory position, left lower lung with a left lower lobe infiltrate, and right lower lobe with an effusion. Pacemaker in place. PHYSICAL EXAMINATION: He is a sick-looking gentleman in mild respiratory discomfort. Temperature is 97.1, pulse 85, respirations 16, blood pressure 99/58, oxygen saturation 90% on BiPAP. Heart: Normal S1, S2 with a holosystolic murmur best heard at the left lower sternal border 2/6. Defibrillator; no evidence of pocket infection. Lungs: Diminished breath sounds at both bases. Abdomen: Soft, nontender. No hepatosplenomegaly. Back: Severe kyphoscoliosis with a large midline surgical scar along the thoracic spine. Extremities: +2 pitting edema bilaterally with bilateral foot drop. Bilateral ankle surgeries from childhood well healed. Right groin has a large ecchymotic area in the right groin area from a heparin injection. Oropharynx: Dry mucosa. Neck: Mild stiffness. Patient has a heating pad. Central line in the right IJ. No redness or tenderness. IMPRESSION: This is a 74-year-old gentleman who was admitted with Staphylococcus lugdunensis bacteremia with echocardiogram consistent with a 1.3 cm vegetation of the tricuspid valve, which appears to be attached to one of the tricuspid leaflets but attachment to the implantable cardioverter-defibrillator lead may also be a possibility. It is on the right atrial side of the tricuspid valve. Severe elevation of right ventricular systolic pressure. Severe reduction in left ventricular systolic function with regional wall motion abnormalities. Moderate aortic valve sclerosis. Patient has Staphylococcus lugdunensis tricuspid valve endocarditis with probability of a pacemaker lead infection. The fact that he had bacteremia with the same pathogen in March treated with daptomycin and a recurrence of the same pathogen makes it very likely this is not only central line related but more a pacemaker lead infection with endocarditis. Patient recalls using cephalosporins without problem. On review of his medical record, he has received ceftriaxone in 2019 without any side effects. PLAN: Discontinue IV vancomycin. Start cefazolin 2 grams IV every 8 hours and rifampin 300 mg by mouth twice a day. May consider use of gentamicin, but the patient is no longer bacteremic and he is a very high-risk patient for acute kidney injury. I would avoid using aminoglycoside. Ideally, the treatment of choice would be removal of defibrillator and this will need to be addressed with [facility]. I cannot see that he would be a surgical candidate for removal of the defibrillator that has been [address] Lubin in [place]. His central line needs to be removed and replaced. Although this could have been the source of infection, at this point I am very worried about his defibrillator. We will discuss the case with Dr. Clemens at [facility] tomorrow for further treatment. If the defibrillator cannot be removed, then the patient will need chronic suppressive life-long therapy. His prognosis is very poor, but the patient is still a F[employer]. 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 Sung Clemens, telephone number [phone]. [facility]
[2019-06-17 16:00] VITALS: BP 96/51
--- NOTE | 2019-06-17 17:49 | CR ---
DATE OF CONSULTATION: 06/17/2019 CONSULTATION REPORT FOR: Dr. Aly Godwin CONSULTING PHYSICIAN: Dr. Ivan REASON FOR CONSULTATION: Management of acute kidney injury superimposed on chronic kidney disease and optimization of volume status in this patient with congestive heart failure. CHIEF COMPLAINT: The patient presented on 06/12/2019 with progressive shortness of breath. HISTORY OF PRESENT ILLNESS: Mr. Manuel Flores is a 74-year-old male with past medical history of severe nonischemic cardiomyopathy, chronically on milrinone infusion, not a candidate for left ventricular assist device (LVAD) or heart transplant, history of her restrictive lung disease because of polio in childhood. He follows up with the heart failure center at [facility]. He has apparently normal renal function with a baseline creatinine of 0.6 to 0.7. He presented to the hospital on 06/12/2019 with progressive shortness of breath despite taking oral diuretics at home. He was admitted initially under the hospitalist service with decompensated congestive heart failure. He was started on diuretics. Later on, the cultures that were sent from admission on 06/12/2019 started growing Staphylococcus lugdunensis. He was started on IV vancomycin. The patient also got a CT angiogram of the chest on 06/15/2019. His renal function started getting worse on 06/16/2019 and now his creatinine has bumped up to 1.4. Nephrology service was called for further help in the management of this patient because his renal function is worsening despite treatment of his heart failure and he needs to be diuresed more. I saw and evaluated the patient today at the bedside. He had just come back after getting his peripherally inserted central catheter (PICC) main catheter removed because of bacteremia. Most of the history was obtained from the patient's . The patient was wearing the continuous positive airway pressure (CPAP) when I saw him. PAST MEDICAL HISTORY: 1. Severe nonischemic cardiomyopathy, left ventricular (LV) ejection fraction of around 25%, global hypokinesis of the left ventricle, not a candidate for heart transplant or left ventricular assist device, chronically dependent on home milrinone infusion. 2. History of transient ischemic attack (TIA) in the past. 3. Prostate cancer status post radiation. 4. History of desmoid tumor status post resection. 5. History of polio in 1951 causing restrictive lung disease, organic brain syndrome, on chronic bilevel positive airway pressure (BiPAP). 6. Hyperlipidemia. 7. Osteoporosis, currently bedridden with severe decreased mobility. 8. History of kyphoscoliosis. PAST SURGICAL HISTORY: 1. History of small bowel resection. 2. History of back surgery as a child. 3. Status post automatic implantable cardioverter defibrillator (AICD) placement. ALLERGIES: The patient is allergic to LATEX and PENICILLIN. FAMILY HISTORY: No significant family history of end-stage renal disease requiring hemodialysis. SOCIAL HISTORY: The patient lives with his . There is no history of illicit drug abuse, smoking, or alcohol abuse. REVIEW OF SYSTEMS: The patient denies any fevers or chills at this time. EYES: He denies any blurry vision or double vision. EARS, NOSE AND, THROAT (ENT): He denies any dysphagia or odynohphagia. CARDIOVASCULAR: He reports history of severe heart failure. RESPIRATORY: He reports progressive shortness of breath. GASTROINTESTINAL (GI): Denies any nausea or vomiting. GENITOURINARY: He reports decreased urine output. MUSCULOSKELETAL: He reports decreased muscle movement. He is bedridden at this time. SKIN: He denies any rashes. HEMATOLOGIC/ONCOLOGIC: He denies any easy bleeding or bruising. ENDOCRINE: He denies any history of diabetes. All other review of systems is negative. PHYSICAL EXAMINATION: GENERAL: The patient is awake, alert, oriented times three, sitting up in the bed, mild respiratory distress, wearing a bilevel positive airway pressure (BiPAP). HEAD AND NECK: Extraocular muscles intact. Pupils equally round and reactive to light. Mucous membranes are moist. Neck is supple. There is moderately elevated jugular venous distention (JVD). CARDIOVASCULAR: S1, S2. He is currently on milrinone infusion which is running. He has 3+ edema of the bilateral lower extremities. RESPIRATORY: The patient has severely decreased movement of the chest because of kyphoscoliosis and restrictive lung disease secondary to polio infection in childhood. Otherwise, there are no active rales or rhonchi. ABDOMEN: Soft, positive bowel sounds, nontender. GENITOURINARY: Bladder is not palpable. The patient does not have any Curtis catheter. MUSCULOSKELETAL: Severely decreased range of movement of bilateral upper and lower extremities and he has 3+ edema of the lower extremities. CENTRAL NERVOUS SYSTEM (STITCH BURNISHER): Decreased muscle movements bilaterally in the upper extremity which is like around 4/5 and power in the lower extremities is 4/5 bilaterally as well. PSYCHIATRIC: Normal mood and affect. LABORATORY REVIEW: CBC showed a WBC 7.4, hemoglobin 13.4, platelets are 143. INR was 1.04. Urinalysis is not available. BMP showed sodium 130, potassium 4.5, chloride 93, bicarbonate 27, BUN 72, creatinine is 1.4, calcium 8.1, magnesium is 2.2. TOXICOLOGY: Vancomycin trough was 35 on 06/15/2019. MICROBIOLOGY: Cultures from 06/12/2019 and 06/13/2019 are growing Staphylococcus lugdunensis. IMAGING: All the imaging results were reviewed and the pertinent imaging is on 06/15/2019. A CT chest with IV contrast, 75 MM of contrast was given, showed no pulmonary embolism and large right-sided pleural effusion and small left-sided pleural effusion. Echocardiogram done on 06/13/2019 showed a 1.3 x 1.3 cm mass, appeared to be attached to one of the tricuspid leaflets, possibly attached to the AICD lead, most likely represents vegetation, severe elevation of the right ventricular systolic pressure, severe overall reduction in left ventricular systolic function, inferior vena cava plethora. CURRENT INPATIENT MEDICATIONS: The patient's medications were all reviewed by myself. He is currently on: - Ancef 2 grams IV every eight hours - He is on milrinone infusion at 7.3 mL per hour. - Tylenol as needed - aspirin 81 mg by mouth daily - He was initially on Bumex and later on switched to Lasix 80 mg IV every eight hours. - digoxin 0.125 mg by mouth every other day - Lidoderm patch - He was on Zaroxolyn 2.5 mg by mouth daily as needed for shortness of breath which has been stopped now. - He is on potassium 40 mEq by mouth twice a day. 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 PLAN: 1. Acute renal failure. It is most likely secondary to combination of use of vancomycin and IV contrast on 06/15/2019. I think it is most likely contrast-induced nephropathy. It is less likely that it is cardiorenal syndrome. However, in any case, the patient does need to continue the diuretics because of the decompensated congestive heart failure. I believe that his creatinine would plateau and start getting better over the next 48 hours. I have changed the diuretic regimen as mentioned below. 2. Acute decompensated systolic congestive heart failure. The patient has severe ischemic cardiomyopathy. Continue the milrinone infusion. Because of his soft blood pressures, I have started the patient on Lasix drip 0.1 mg/kg per hour. I have also given the patient a dose of chlorothiazide 500 mg IV times one dose for sequential nephron blockade. I have stopped the oral metolazone. Continue the current dose of potassium chloride 40 mEq by mouth twice a day. 3. Infective endocarditis. The patient is currently on cephazolin and rifampicin. He is already being seen by infectious disease. Dose is adequate for his renal function. His main catheter has been removed. He has a new peripherally inserted central catheter (PICC) line in the left arm. 4. Hyponatremia. The patient has hypervolemic hyponatremia. Sodium level will improve after improvement of the volume status with IV diuretics. 5. Vancomycin toxicity. The patient's vancomycin level was high on 06/15/2019. Vancomycin has been stopped and currently he is on penicillin. I would just repeat a random vancomycin level tomorrow morning. Thank you for involving me in the care of this patient. I shall be happy to follow the patient along with you tomorrow morning.
--- NOTE | 2019-06-17 19:23 | IPNPDOC ---
Subjective Date Seen The patient was seen on 06/17/19. Subjective Chief Complaint/HPI Manuel is sob, his uop and renal function are worsening. He's not diuresing enough fluid form my discussion with him and his , and is requiring bipap more often. 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 bacteremia - repeat b.cx 06/14, 06/15 are no growth to date. - presently on rifampin + cefazolin - Dr. Hudson following - Sanchez removed by IR today - picc line placed 06/18 DVT prophylaxis: start sq hep in am Plan/VTE VTE Prophylaxis Ordered?: Yes VTE Exclusion Mechanical Proph: N/A:VTE Prophy Ordered VTE Exclusion Pharmacological: N/A:VTE Prophy Ordered VS, I&O, 24H, Fishbone Vital Signs/I&O Vital Signs Date Time Temp Pulse Resp B/P (MAP) Pulse Ox O2 Delivery O2 Flow Rate FiO2 06/17/19 16:00 97.2 81 32 96/51 (66) 94 06/17/19 11:03 NIPPV (BIPAP/CPAP) I&O- Last 24 Hours up to 6 AM 06/17/19 06:00 Intake Total 1140 ml Output Total 400 ml Balance 740 ml Laboratory Data 24H LABS Laboratory Tests 2 06/17/19 05:22: Immature Granulocyte % (Auto) 0.7, Neutrophils (%) (Auto) 80.5H, Lymphocytes (%) (Auto) 4.7L, Monocytes (%) (Auto) 12.5H, Eosinophils (%) (Auto) 0.9, Basophils (%) (Auto) 0.7, Neutrophils # (Auto) 6.0, Lymphocytes # (Auto) 0.4L, Monocytes # (Auto) 0.9H, Eosinophils # (Auto) 0.1, Basophils # (Auto) 0.1, Nucleated Red Blood Cells % (auto) 0.0, Anion Gap 10, Glomerular Filtration Rate 49.2, Calcium Level 8.1L, Magnesium Level 2.2 CBC/BMP Laboratory Tests 06/17/19 05:22 Microbiology Microbiology 06/17/19 Anaerobic Culture, Received Pending 06/17/19 Catheter Tip Culture, Received Pending 06/15/19 Blood Culture - Preliminary, Resulted No Growth after 48 hours. All Specime... 06/15/19 Blood Culture - Preliminary, Resulted No Growth after 48 hours. All Specime... 06/14/19 Blood Culture - Preliminary, Resulted No Growth after 72 hours. All specime... 06/14/19 Blood Culture - Preliminary, Resulted No Growth after 72 hours. All specime... 06/13/19 Blood Culture - Final, Complete Staphylococcus Lugdunensis 06/13/19 Blood Culture - Final, Complete Staphylococcus Lugdunensis 06/12/19 Blood Culture - Final, Complete Staphylococcus Lugdunensis 06/12/19 Blood Culture - Final, Complete Staphylococcus Lugdunensis DIGNA ALVARADO MD Jun 17, 2019 19:23
[2019-06-17 20:00] VITALS: BP 100/59
[2019-06-17] MEDS: POTASSIUM CHLORIDE 10 MEQ PO SCH (21:06)
[2019-06-17] MEDS: PRAVASTATIN 10 MG TAB PO SCH (21:08)
[2019-06-17] MEDS: CETIRIZINE (ZyrTEC) 10 MG TAB PO SCH (21:08)
[2019-06-17] MEDS: **NOTE PATIENT COMMENT** MISC XX SCH (21:12)
[2019-06-18] VITALS: BP 97/54
[2019-06-18 04:00] VITALS: BP 99/54
[2019-06-18] MEDS: SODIUM CHLORIDE 0.9% INJ 10 ML SYR IV SCH ×3 (05:00→17:20)
[2019-06-18] MEDS: SLF 3 ML SYR IV SCH ×3 (05:00→23:13)
[2019-06-18 05:34] LABS: BASO % 0.5 % (0.0-1.0); EOS # 0.1 10^3/uL (0.0-0.5); EOS % 0.9 % (0.0-3.0); HEMATOCRIT 41.8 % (42.0-52.0); LYMPH # 0.4 10^3/uL (1.5-5.0); LYMPH % 4.6 % (24.0-44.0); MEAN CORPUSCULAR HEMOGLOBIN 30.7 pg (27.0-33.0); MEAN CORPUSCULAR HGB CONC 31.1 g/dl (32.0-36.5); MEAN CORPUSCULAR VOLUME 98.6 fl (80.0-96.0); MONO # 0.8 10^3/uL (0.0-0.8); MONO % 10.8 % (0.0-5.0); NEUTROPHILS # 6.2 10^3/uL (1.5-8.5); PLATELET COUNT, AUTOMATED 132 10^3/uL (150-450); RED BLOOD COUNT 4.24 10^6/uL (4.30-6.10); WHITE BLOOD COUNT 7.6 10^3/uL (4.0-10.0)
[2019-06-18 05:57] LABS: CALCIUM LEVEL 7.7 MG/DL (8.8-10.2); CREATININE FOR GFR 1.62 MG/DL (0.70-1.30); GLOMERULAR FILTRATION RATE 44.7 (>42); MAGNESIUM LEVEL 2.2 MG/DL (1.8-2.4); POTASSIUM SERUM 4.4 MEQ/L (3.5-5.1); VANCOMYCIN RANDOM 20.9 UG/ML
[2019-06-18 06:12] LABS: APPEARANCE, URINE CLEAR (CLEAR); BACTERIA, URINE AUTO NEGATIVE (NEGATIVE); BILIRUBIN, URINE AUTO NEGATIVE (NEGATIVE); BLOOD, URINE BLOOD NEGATIVE (NEGATIVE); COLOR, URINE AMBER (YELLOW); GLUCOSE, URINE (UA) AUTO NEGATIVE (NEGATIVE); KETONE, URINE AUTO NEGATIVE (NEGATIVE); LEUKOCYTE ESTERASE, URINE AUTO NEGATIVE (NEGATIVE); MUCUS, URINE SMALL (NEGATIVE); NITRITE, URINE AUTO NEGATIVE (NEGATIVE); PROTEIN, URINE AUTO NEGATIVE (NEGATIVE); RBC, URINE AUTO 2 /HPF (0-3); SPECIFIC GRAVITY URINE AUTO 1.016 (1.002-1.035); SQUAMOUS EPITHELIAL CELL UR AU 0 /HPF (0-6); UROBILINOGEN, URINE AUTO 0.2 mg/dL (0.0-2.0); WBC, URINE AUTO 1 /HPF (0-3)
[2019-06-18] MEDS: ACETAMINOPHEN 500 MG TAB PO PRN ×2 (06:52→23:11)
[2019-06-18 08:00] VITALS: BP 101/56
[2019-06-18] MEDS: ceFAZolin SOD 2 GM in IV 1 EA IV SCH ×3 (09:04→23:10)
[2019-06-18] MEDS: ASPIRIN 81 MG CHEW TABLET PO SCH (09:05)
[2019-06-18] MEDS: LACTOBACILLUS ACIDOPHILUS CAP (BACID) PO SCH (09:05)
[2019-06-18] MEDS: VITAMIN D 1,000 INTERNATIONAL UNITS TABLET PO SCH (09:05)
[2019-06-18] MEDS: DIGOXIN 0.125 MG TAB PO SCH (09:05)
[2019-06-18] MEDS: MULTIVITAMINS/MINERALS THERAP 1 TAB PO SCH (09:05)
[2019-06-18] MEDS: LIDOCAINE 5% (LIDODERM) PATCH TD SCH (09:06)
[2019-06-18] MEDS: POTASSIUM CHLORIDE 10 MEQ PO SCH ×2 (09:06→23:08)
--- NOTE | 2019-06-18 09:07 | IPN ---
DATE: 06/18/2019 Mr. Flores looks to me a little bit worse today than he did yesterday. He is more short of breath and his peripheral edema is certainly not better. Besides all his other problems he also developed significant diarrhea. It looks like he had at least five bowel movements yesterday. He says that it is not completely water but very, very loose. He does not have much of abdominal pain other than occasional cramping having bowel movements. He was seen by Dr. Ivan and the dose of diuretics was changed. Denies any chest discomfort. Blood pressure 101/56. Heart rate has been in 80s. He is afebrile. Saturation is 96% on bilevel positive airway pressure (BiPAP). His fluid balance yesterday was recorded as positive 1100, but the output of bowel movements certainly was not well recorded. Weight was recorded as 46 today, but it is in bed scale rather than chair scale. He is alert and oriented. His jugular venous pulse (JVP) is elevated. Lungs are diminished over right base. Lungs seem to be clear. Heart exam reveals regular rhythm. No distinct gallop or murmur but is very difficult to hear. He has 3+ edema abdominal and extremities. LABORATORIES: Hemoglobin 13, hematocrit 41, platelet count 132. Basic metabolic panel is normal with the exception of sodium 131, BUN 73, creatinine 1.6 which is little bit worse since yesterday. ASSESSMENT AND PLAN: Mr. Flores is a 74-year-old man who has a multitude of medical problems that include nonischemic cardiomyopathy, severe LV systolic dysfunction that has been chronic milrinone as an outpatient. He came with heart failure and was found to be also probably exacerbated by endocarditis. He is being treated with penicillin type of antibiotic. Further complication is development of acute renal failure likely due to combination of heart failure, vancomycin and administered contrast. It looks like that he is improving in that regard, at least plateauing. I still hope to see some improvement in his urine output tomorrow. The patient asked me to get a multivitamin and vitamin D that he has been receiving at home and I certainly will be happy to give him these medications, but otherwise, I do not have much else to contribute.
[2019-06-18] MEDS ORDERED: CHLOROTHIAZIDE 500 MG VIAL (J1205 PER 1) IV ONE (11:00)
[2019-06-18] MEDS: MILRINONE/DEXTROSE 20 MG in IV 1 EA IV SCH (11:23)
[2019-06-18 12:00] VITALS: BP 105/59
[2019-06-18] MEDS ORDERED: FUROSEMIDE injection 250 MG in D5W 225 ML IV SCH ×2 (13:00)
--- NOTE | 2019-06-18 15:51 | IPNPDOC ---
Subjective Date Seen The patient was seen on 06/18/19. Subjective Chief Complaint/HPI Manuel is resting this morning, his sleep was interrupted through the night. His is at the bedside. UOP is in oliguric range. 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 bacteremia - repeat b.cx 06/14, 06/15 are no growth to date. - presently on rifampin + cefazolin - Dr. Hudson following, may need life long suppressive therapy if survives this admission - Sanchez removed by IR - picc line placed 06/18 DVT prophylaxis: start sq hep in am Plan/VTE VTE Prophylaxis Ordered?: Yes VTE Exclusion Mechanical Proph: N/A:VTE Prophy Ordered VTE Exclusion Pharmacological: N/A:VTE Prophy Ordered VS, I&O, 24H, Fishbone Vital Signs/I&O Vital Signs Date Time Temp Pulse Resp B/P (MAP) Pulse Ox O2 Delivery O2 Flow Rate FiO2 06/18/19 12:00 97.4 85 30 105/59 (74) 97 NIPPV (BIPAP/CPAP) I&O- Last 24 Hours up to 6 AM 06/18/19 06:00 Intake Total 1330 ml Output Total 600 ml Balance 730 ml Laboratory Data 24H LABS Laboratory Tests 2 06/18/19 05:19: Immature Granulocyte % (Auto) 1.2, Neutrophils (%) (Auto) 82.0H, Lymphocytes (%) (Auto) 4.6L, Monocytes (%) (Auto) 10.8H, Eosinophils (%) (Auto) 0.9, Basophils (%) (Auto) 0.5, Neutrophils # (Auto) 6.2, Lymphocytes # (Auto) 0.4L, Monocytes # (Auto) 0.8, Eosinophils # (Auto) 0.1, Basophils # (Auto) 0.0, Nucleated Red Blood Cells % (auto) 0.0, Anion Gap 12, Glomerular Filtration Rate 44.7, Calcium Level 7.7L, Magnesium Level 2.2, Random Vancomycin Level 20.9 06/18/19 05:50: Urine Color PACO, Urine Appearance CLEAR, Urine pH 5.0, Urine Specific [place] 1.016, Urine Protein NEGATIVE, Urine Glucose (Auto)(UA) NEGATIVE, Urine Ketones (Auto) NEGATIVE, Urine Blood NEGATIVE, Urine Nitrite NEGATIVE, Urine Bilirubin NEGATIVE, Urine Urobilinogen 0.2, Urine Leukocyte Esterase (Auto) NEGATIVE, Urine WBC (Auto) 1, Urine RBC (Auto) 2, Urine Hyaline Casts (Auto) 0, Urine Bacteria (Auto) NEGATIVE, Urine Squamous Epithelial Cells 0, Urine Mucus (Auto) SMALL, Urine Sperm (Auto) CBC/BMP Laboratory Tests 06/18/19 05:19 Microbiology Microbiology 06/17/19 Anaerobic Culture, Received Pending 06/17/19 Catheter Tip Culture, Received Pending 06/15/19 Blood Culture - Preliminary, Resulted No Growth after 72 hours. All specime... 06/15/19 Blood Culture - Preliminary, Resulted No Growth after 72 hours. All specime... 06/14/19 Blood Culture - Preliminary, Resulted No Growth after 72 hours. All specime... 06/14/19 Blood Culture - Preliminary, Resulted No Growth after 72 hours. All specime... 06/13/19 Blood Culture - Final, Complete Staphylococcus Lugdunensis 06/13/19 Blood Culture - Final, Complete Staphylococcus Lugdunensis 06/12/19 Blood Culture - Final, Complete Staphylococcus Lugdunensis 06/12/19 Blood Culture - Final, Complete Staphylococcus Lugdunensis DIGNA ALVARADO MD Jun 18, 2019 15:51
[2019-06-18 16:00] VITALS: BP 101/55
--- NOTE | 2019-06-18 17:06 | IPNPDOC ---
Text Note Date of Service The patient was seen on 06/18/19. NOTE This note pertains to the nephrology service with Lety Khan MD super vising my work. Please see E attestation below. SUBJECTIVE Patient was seen at bedside this morning in the presence of his , who is able to communicate on his behalf while he wears a noninvasive positive-pressure ventilator (NIPPV). She states that he has not felt any changes in his conditio n. She states that he has been producing very little urine and that he doesn't feel he needs a catheter at this time. He has no further complaints at this time. OBJECTIVE GENERAL: Pt is sitting, propped-up in bed in mild respiratory distress while wearing a NIPPV. HEENT: Normocephalic, atraumatic. EOMI. Mucous membranes are moist. Neck is supple. CARDIOVASCULAR: Regular rate and rhythm with S1 and S2, though this is difficult to auscultate. No murmurs, rubs, or gallops are detectable. Milrinone infusion is running. 3+ edema of the bilateral lower extremities present. 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 Lungs clear to auscultation b/l. No wheezes, rales, or rhonchi. ABDOMEN: Soft and nontender. GENITOURINARY: Bladder is not palpable. Pt does not have a Curtis catheter. MUSCULOSKELETAL: Severely decreased range of motion of b/l upper and lower extremities. PSYCHIATRIC: Pt is calm and cooperative. His communication is restricted by NIPPV. LABORATORY REVIEW: CBC this morning showed WBC 7.6, hemoglobin 13.0, platelets are 132. Urinalysis is unremarkable. BMP showed sodium 131, potassium 4.4, chloride 93, bicarbonate 26, BUN 73, creatinine is 1.62, calcium 7.7, magnesium is 2.2. Random vancomycin level was 20.9 this morning. ASSESSMENT/PLAN: 1. Acute renal failure, likely secondary to IV contrast and/or vancomycin - Cardiorenal syndrome less likely. Continuing diuresis is indicated due to decompensated congestive heart failure (see #2 below). - If etiology is contrast-induced nephropathy, pt's creatinine will plateau and then begin to improve within 24 hours. 2. Acute decompensated systolic congestive heart failure - Continue the milrinone infusion per severe ischemic cardiomyopathy. - Increase furosemide drip to 0.2 mg/kg per hour. Ordered a second one-time chlorothiazide 500 mg IV dose for sequential nephron blockade. Continue the current dose of potassium chloride 40 mEq PO BID. 3. Infective endocarditis - Continue cephazolin and rifampicin per orders from infectious disease. Dose is appropriate for his renal function. 4. Hypervolemic hyponatremia - Sodium level has increased today and will continue to improve with volume status and diuresis. 5. Vancomycin toxicity - Vancomycin level was high on 06/15/2019 and has now decreased to 20.9. Continue to avoid vancomycin as renal function recovers. VS,Fishbone, I+O VS, Fishbone, I+O Laboratory Tests 06/18/19 05:19 Vital Signs Date Time Temp Pulse Resp B/P (MAP) Pulse Ox O2 Delivery O2 Flow Rate FiO2 06/18/19 09:05 83 06/18/19 08:00 98.0 32 101/56 (71) 96 NIPPV (BIPAP/CPAP) I&O- Last 24 Hours up to 6 AM 06/18/19 06:00 Intake Total 1330 ml Output Total 600 ml Balance 730 ml GME ATTESTATION GME ATTESTATION My faculty preceptor for this patient encounter was physically present during the encounter and was fully available. All aspects of the patient interview, ex amination, medical decision making process, and medical care plan development were reviewed and approved by the faculty preceptor. The faculty preceptor is aware and concurs with the plan as stated in the body of this note and will attest to such by his/her cosignature. JARETT EDUARDO OMS-III Jun 18, 2019 11:55 LETY CEJA MD Jun 19, 2019 11:54
[2019-06-18] MEDS: FUROSEMIDE injection 250 MG in D5W 225 ML IV SCH (17:20)
[2019-06-18 19:25] VITALS: BP 109/55
[2019-06-18] MEDS: **NOTE PATIENT COMMENT** MISC XX SCH (21:00)
[2019-06-18] MEDS: PRAVASTATIN 10 MG TAB PO SCH (23:10)
[2019-06-18] MEDS: CETIRIZINE (ZyrTEC) 10 MG TAB PO SCH (23:10)
[2019-06-19] VITALS: BP_SYST 123; BP_SYST 93; BP_DIAS 51; BP_DIAS 76
[2019-06-19] MEDS: MILRINONE/DEXTROSE 20 MG in IV 1 EA IV SCH ×2 (03:41→19:41)
[2019-06-19 04:00] VITALS: BP 96/60
[2019-06-19] MEDS: SLF 3 ML SYR IV SCH ×3 (06:56→22:32)
[2019-06-19] MEDS: SODIUM CHLORIDE 0.9% INJ 10 ML SYR IV SCH ×3 (06:57→17:55)
[2019-06-19 08:00] VITALS: BP 90/52
[2019-06-19 08:04] LABS: BASO % 0.2 % (0.0-1.0); EOS # 0.1 10^3/uL (0.0-0.5); EOS % 0.4 % (0.0-3.0); HEMATOCRIT 40.7 % (42.0-52.0); HEMOGLOBIN 13.3 g/dl (13.5-17.5); LYMPH % 1.1 % (24.0-44.0); MEAN CORPUSCULAR HEMOGLOBIN 31.5 pg (27.0-33.0); MEAN CORPUSCULAR HGB CONC 32.7 g/dl (32.0-36.5); MEAN CORPUSCULAR VOLUME 96.4 fl (80.0-96.0); MONO # 0.2 10^3/uL (0.0-0.8); MONO % 1.2 % (0.0-5.0); NEUTROPHILS # 12.5 10^3/uL (1.5-8.5); NEUTROPHILS % 96.1 % (36.0-66.0); PLATELET COUNT, AUTOMATED 123 10^3/uL (150-450); RED BLOOD COUNT 4.22 10^6/uL (4.30-6.10)
[2019-06-19 08:17] LABS: CALCIUM LEVEL 7.5 MG/DL (8.8-10.2); CREATININE FOR GFR 1.38 MG/DL (0.70-1.30); GLOMERULAR FILTRATION RATE 53.8 (>42); MAGNESIUM LEVEL 2.2 MG/DL (1.8-2.4); POTASSIUM SERUM 3.7 MEQ/L (3.5-5.1)
[2019-06-19] MEDS: ceFAZolin SOD 2 GM in IV 1 EA IV SCH ×3 (08:34→23:00)
[2019-06-19] MEDS: LACTOBACILLUS ACIDOPHILUS CAP (BACID) PO SCH (08:36)
[2019-06-19] MEDS: MULTIVITAMINS/MINERALS THERAP 1 TAB PO SCH (08:36)
[2019-06-19] MEDS: ASPIRIN 81 MG CHEW TABLET PO SCH (08:36)
[2019-06-19] MEDS: POTASSIUM CHLORIDE 10 MEQ PO SCH ×2 (08:38→22:31)
[2019-06-19] MEDS: VITAMIN D 1,000 INTERNATIONAL UNITS TABLET PO SCH (08:38)
[2019-06-19] MEDS: LIDOCAINE 5% (LIDODERM) PATCH TD SCH (08:40)
[2019-06-19 08:50] LABS: LYMPH # 0.1 10^3/uL (1.5-5.0)
--- NOTE | 2019-06-19 09:04 | IPN ---
DATE: Mr. Flores seems about the same as he did yesterday. According to his , his mental status yesterday was a little worse and he was sleepy throughout the day. This morning when I entered the room he was sleeping on his bilevel positive airway pressure (BiPAP) but he was easily arousable and was immediately appropriate. Dyspnea is about the same. Vital Signs: Blood pressure 96/60, heart rate has been in 80s. He had a brief run of nonsustained ventricular tachycardia (VT). He is afebrile. Saturation 90-100% on BiPAP. His fluid balance yesterday was recorded about negative 200. He made 775 mL of urine, which is improvement compared to the day before, but according to his 's records the output was probably even higher than that. Weight is recorded 47.2 kg in the bed scale, which I have certain mistrusting. He is alert and oriented, appropriate. Jugular venous pulse (JVP) is hard to magisterial district judge. His left lung remains clear. On the right there are diminished base but above that seems clear as well. Heart exam reveals very muffled heart sounds. I do not appreciate distinct gallop, rub or murmur. Abdomen is soft. He has diffuse edema. Laboratories are still pending this morning for CBC. The basic metabolic panel reveals sodium 130, potassium 3.7, BUN 80, creatinine 1.4, and glucose 60. GFR was 54. ASSESSMENT AND PLAN: Mr. Flores is a 74-year-old man who has severe nonischemic cardiomyopathy with severe systolic congestive heart failure that is currently exacerbated. It was further complicated by development of acute renal failure. Fortunately, his renal function seems to be improving indicating it was probably a consequence of a combination of vancomycin and contrast toxicity. He still is grossly volume overloaded and need additional diuresis. I think we can continue current medications for diuretics. As far as the endocarditis is concerned, he is receiving antibiotics under the direction of Infectious Disease (ID). Overall, unfortunately, his prognosis is very poor but the partial recovery of renal function today is certainly a glimpse of hope.
[2019-06-19] MEDS ORDERED: POTASSIUM CHLORIDE 10 MEQ SR TABLET PO ONE (10:30)
--- NOTE | 2019-06-19 10:43 | IPN ---
DATE: 06/18/2019 Mr. Flores is seen and examined at the bedside this morning. His is currently at the bedside with him. She reports that he does not feel any better and is not doing much better than yesterday. His urine output has not picked up quite yet, despite being on a Lasix drip. His catheter was removed, and he has been using the bedside urinal, and she has been keeping track of his urine output which has been almost a total of 500-600 mL in the past 24 hours. The patient has been requiring the bilevel positive airway pressure (BiPAP) for comfortable breathing for most of the day, and he seems to be exhausted from the increased work of breathing. The patient's reports that he has not been eating and drinking as well, and he often seems tired and uncomfortable although he is not able to sleep through the night. The patient and his asked about the probiotic on discharge with the thought that the patient will be discharged in the coming days. It is not evident that there have been any discussions with the patient regarding his prognosis and whether or not he would choose to go home on hospice or discuss end of life goals. It seems as though the patient's is still hopeful for improved outcomes at this time. Otherwise, there are no complaints this afternoon. OBJECTIVE: His vital signs are temperature of 97.7, pulse of 86, respiratory rate of 38, blood pressure of 101/55, and he is 97% using the BiPAP. His ins and outs as recorded in the past 24 hours are a urine total of 775 mL. His current weight is 46 kg, down from 51.4 kg on admission. Generally, the patient is laying in bed. He is calm, cooperative. He appears to be sleeping. He is breathing and using accessory muscles of respiration with his BiPAP mask on. He is answering all questions appropriately, and his is at the bedside. HEENT exam: He is normocephalic, atraumatic. Mucous membranes are moist. His sclerae are nonicteric. His neck is supple with no lymphadenopathy and no thyromegaly. His chest, he has even chest rise. The site of the removal of the indwelling central line catheter is clean, dry, and intact. Lungs are somewhat diminished bilaterally with no obvious adventitious breath sounds appreciated. His heart, is regular rate and rhythm, somewhat muffled but with no murmurs, rubs, or gallops discernable. ABDOMEN: Soft and nontender in all four quadrants. Positive bowel sounds. No masses or organomegaly. His back, he has extreme, severe kyphoscoliosis but nontender. There is no costovertebral angle (CVA) tenderness. EXTREMITIES: He has almost 3+ pitting edema in his lower extremities bilaterally. In addition, he has about 1 to 2+ pitting edema in his upper extremities. The site of his peripherally inserted central catheter (PICC) line placement is clean, dry, and intact. LYMPHATICS: He has no enlarged lymph nodes in his posterior cervical, auricular, or femoral areas. SKIN: He has no new rashes. ASSESSMENT: This is a 74-year-old man with: 1. 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 2. Severe congestive heart failure. Undergoing aggressive diuresis. 3. Possible automatic implantable cardioverter-defibrillator (AICD) line infection. PLAN: We will continue his cefazolin and rifampin at this time. We may need to adjust the dose of his cefazolin as his kidney function is worsening. It is most plausible that his kidney function is worsening due to his aggressive diuresis or contrast nephropathy, but if his glomerular filtration rate (GFR) gets to be below 35%, we will need to address the dosing of his cephazolin. We agree to continue with aggressive diuresis at this time, but we would recommend speaking with the patient and his about goals of care and possible hospice referral or palliative care referral. The patient does appear somewhat uncomfortable, as it is getting difficult for him to breathe and it seems as though the is somewhat doubtful of his true prognosis. MTDD
[2019-06-19] MEDS ORDERED: CHLOROTHIAZIDE 500 MG VIAL (J1205 PER 1) IV ONE (11:00)
[2019-06-19 11:11] LABS: C REACTIVE PROTEIN QUANTITATIV 2.5 MG/DL (0.00-0.30)
[2019-06-19] MEDS: SPIRONOLACTONE 25 MG TAB PO SCH (11:24)
--- NOTE | 2019-06-19 11:26 | IPNPDOC ---
Text Note Date of Service The patient was seen on 06/19/19. NOTE This note pertains to the nephrology service with Lety Khan MD super vising my work. Please see E attestation below. SUBJECTIVE Patient was seen at bedside this morning in the presence of his , who is able to communicate on his behalf while he wears a noninvasive positive-pressure ventilator (NIPPV). She states that his edema has improved somewhat in that his penile and scrotal edema is significantly less. She states that he is producing some urine at this point. She reports approximately 1200 mL urine produced yesterday, contrary to 775 mL recorded in chart. He does not want a Curtis catheter. He is agreeable to a condom catheter. He has no dysuria. Pt has no further complaints at this time. OBJECTIVE GENERAL: Pt is sitting, propped-up in bed in mild respiratory distress while wearing a NIPPV. HEENT: Normocephalic, atraumatic. EOMI. Mucous membranes are moist. Neck is supple. CARDIOVASCULAR: Regular rate and rhythm with S1 and S2, though this is difficult to auscultate. No murmurs, rubs, or gallops are detectable. Milrinone infusion is running. 3+ edema of the bilateral lower extremities present. 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 Lungs clear to auscultation b/l. No wheezes, rales, or rhonchi. ABDOMEN: Soft and nontender. GENITOURINARY: Bladder is not palpable. Pt does not have a Curtis catheter. MUSCULOSKELETAL: Severely decreased range of motion of b/l upper and lower extremities. PSYCHIATRIC: Pt is calm and cooperative. His communication is restricted by NIPPV. LABORATORY REVIEW: CBC: WBC 13.0, HGB 13.3, platelets 123. BMP: Sodium 130, potassium 3.7, chloride 92, bicarbonate 23, BUN 80, creatinine 1.38, calcium 7.5, magnesium 2.2. ASSESSMENT/PLAN: 1. Acute renal failure, likely secondary to IV contrast and/or vancomycin - Cardiorenal syndrome less likely. Continuing diuresis is indicated due to decompensated congestive heart failure (see #2 below). - Creatinine has decreased to 1.38. Time courses is consistent with contrast- induced nephropathy. - Condom catheter has been ordered to increase fidelity of urine output marshall surement as we continue to diurese him. Will continue to monitor. 2. Acute decompensated systolic congestive heart failure - Continue the milrinone infusion per severe ischemic cardiomyopathy. - Continue furosemide drip to 0.2 mg/kg per hour. Ordered a third one-time chlorothiazide 500 mg IV dose for sequential nephron blockade. - Potassium slightly decreased this morning to 3.7. Continue the current dose of potassium chloride 40 mEq PO BID. Will now add spironolactone 25 mg by mouth every morning. 3. Infective endocarditis - Continue cephazolin and rifampicin per orders from infectious disease. Dose is appropriate for his renal function. 4. Hypervolemic hyponatremia - Sodium level has increased today and will continue to improve with volume status and diuresis. VS,Fishbone, I+O VS, Fishbone, I+O Laboratory Tests 06/19/19 07:19 Vital Signs Date Time Temp Pulse Resp B/P (MAP) Pulse Ox O2 Delivery O2 Flow Rate FiO2 06/19/19 08:00 97.7 83 38 90/52 (65) 97 NIPPV (BIPAP/CPAP) I&O- Last 24 Hours up to 6 AM 06/19/19 06:00 Intake Total 487 ml Output Total 650 ml Balance -163 ml GME ATTESTATION GME ATTESTATION My faculty preceptor for this patient encounter was physically present during the encounter and was fully available. All aspects of the patient interview, examination, medical decision making process, and medical care plan development were reviewed and approved by the faculty preceptor. The faculty preceptor is aware and concurs with the plan as stated in the body of this note and will attest to such by his/her cosignature. JARETT EDUARDO OMS-III Jun 19, 2019 11:26 LETY CEJA MD Jun 19, 2019 12:00
[2019-06-19 12:00] VITALS: BP 94/42
[2019-06-19] MEDS ORDERED: POTASSIUM CHLORIDE 10 MEQ PO ONE (12:00)
--- NOTE | 2019-06-19 14:18 | IPNPDOC ---
Subjective Date Seen The patient was seen on 06/19/19. Subjective Chief Complaint/HPI Manuel remains sob, although his breathing is less labored this morning. His UOP picked up overnight with increased dose of lasix gtt. Objective Physical Examination General Exam: Positive: Alert, Other (tachypenic but breathing does not appear labored like yesterday) Eye Exam: Positive: Sclera icteric ENT Exam: Positive: Atraumatic Neck Exam: Positive: JVD Chest Exam: Positive: Normal air movement, Diminished Heart Exam: Positive: Rate Normal, Irregular Rhythm, Normal S1, Normal S2 Telemetry: Positive: No significant arrhythmia Abdomen Exam: Positive: Normal bowel sounds Extremity Exam: Positive: Edema; Negative: Clubbing, Cyanosis Psych Exam: Positive: Mental status NL Assessment /Plan Assessment # Acute on chronic combined systolic + diastolic CHF # Hypokalemia - continue milirone gtt - lasix gtt dosage increased with [employer] in UOP # BYRON 06/07 vanco toxicity and IV contrast nephropathy - nephro managing - creat lower this morning # Acute hypoxic respiratory failure due to CHF - bipap prn # Urvashi Skinner bacteremia - repeat b.cx 06/14, 06/15 are no growth to date. - presently on rifampin + cefazolin - Dr. Hudson following, may need life long suppressive therapy if survives this admission - Sanchez removed by IR - picc line placed 06/18 DVT prophylaxis: sq hep Plan/VTE VTE Prophylaxis Ordered?: Yes VTE Exclusion Mechanical Proph: N/A:VTE Prophy Ordered VTE Exclusion Pharmacological: N/A:VTE Prophy Ordered VS, I&O, 24H, Fishbone Vital Signs/I&O Vital Signs Date Time Temp Pulse Resp B/P (MAP) Pulse Ox O2 Delivery O2 Flow Rate FiO2 06/19/19 12:00 98.3 84 40 94/42 (59) 90 NIPPV (BIPAP/CPAP) I&O- Last 24 Hours up to 6 AM 06/19/19 06:00 Intake Total 487 ml Output Total 650 ml Balance -163 ml Laboratory Data 24H LABS Laboratory Tests 2 06/19/19 07:19: Immature Granulocyte % (Auto) 1.0, Neutrophils (%) (Auto) 96.1H, Lymphocytes (%) (Auto) 1.1L, Monocytes (%) (Auto) 1.2, Eosinophils (%) (Auto) 0.4, Basophils (%) (Auto) 0.2, Neutrophils # (Auto) 12.5H, Lymphocytes # (Auto) 0.1L, Monocytes # (Auto) 0.2, Eosinophils # (Auto) 0.1, Basophils # (Auto) 0.0, Nucleated Red Blood Cells % (auto) 0.0, Anion Gap 15, Glomerular Filtration Rate 53.8, Calcium Level 7.5L, Magnesium Level 2.2, C-Reactive Protein, Quantitative 2.50H CBC/BMP Laboratory Tests 06/19/19 07:19 Microbiology Microbiology 06/17/19 Anaerobic Culture - Final, Complete 06/17/19 Catheter Tip Culture - Final, Complete 06/15/19 Blood Culture - Preliminary, Resulted No Growth after 72 hours. All specime... 06/15/19 Blood Culture - Preliminary, Resulted No Growth after 72 hours. All specime... 06/14/19 Blood Culture - Final, Complete NO GROWTH AFTER 5 DAYS 06/14/19 Blood Culture - Final, Complete NO GROWTH AFTER 5 DAYS 06/13/19 Blood Culture - Final, Complete Staphylococcus Lugdunensis 06/13/19 Blood Culture - Final, Complete Staphylococcus Lugdunensis 06/12/19 Blood Culture - Final, Complete Staphylococcus Lugdunensis 06/12/19 Blood Culture - Final, Complete Staphylococcus Lugdunensis DIGNA ALVARADO MD Jun 19, 2019 14:10
[2019-06-19 16:00] VITALS: BP 80/50
[2019-06-19] MEDS: FUROSEMIDE injection 250 MG in D5W 225 ML IV SCH (18:00)
[2019-06-19 20:00] VITALS: BP 88/50
[2019-06-19] MEDS: **NOTE PATIENT COMMENT** MISC XX SCH (21:00)
[2019-06-19] MEDS: CETIRIZINE (ZyrTEC) 10 MG TAB PO SCH (22:31)
[2019-06-19] MEDS: PRAVASTATIN 10 MG TAB PO SCH (22:32)
[2019-06-20] VITALS: BP 92/50
[2019-06-20 04:00] VITALS: BP 83/50
[2019-06-20] MEDS: SLF 3 ML SYR IV SCH ×3 (06:00→21:35)
[2019-06-20] MEDS: SODIUM CHLORIDE 0.9% INJ 10 ML SYR IV SCH ×3 (06:00→17:59)
[2019-06-20 06:07] LABS: BASO % 0.4 % (0.0-1.0); EOS # 0.1 10^3/uL (0.0-0.5); EOS % 0.9 % (0.0-3.0); HEMATOCRIT 40.4 % (42.0-52.0); LYMPH # 0.3 10^3/uL (1.5-5.0); LYMPH % 3.1 % (24.0-44.0); MEAN CORPUSCULAR HEMOGLOBIN 30.7 pg (27.0-33.0); MEAN CORPUSCULAR HGB CONC 32.2 g/dl (32.0-36.5); MEAN CORPUSCULAR VOLUME 95.3 fl (80.0-96.0); MONO # 0.9 10^3/uL (0.0-0.8); MONO % 10.2 % (0.0-5.0); NEUTROPHILS # 7.9 10^3/uL (1.5-8.5); PLATELET COUNT, AUTOMATED 127 10^3/uL (150-450); RED BLOOD COUNT 4.24 10^6/uL (4.30-6.10); WHITE BLOOD COUNT 9.3 10^3/uL (4.0-10.0)
[2019-06-20 06:28] LABS: BLOOD UREA NITROGEN 77 MG/DL (7-18); CALCIUM LEVEL 7.4 MG/DL (8.8-10.2); CARBON DIOXIDE LEVEL 25 MEQ/L (21-32); CHLORIDE LEVEL 93 MEQ/L (98-107); CREATININE FOR GFR 1.21 MG/DL (0.70-1.30); GLOMERULAR FILTRATION RATE > 60.0 (>42); GLUCOSE, FASTING 105 MG/DL (70-100); MAGNESIUM LEVEL 2.4 MG/DL (1.8-2.4); POTASSIUM SERUM 3.7 MEQ/L (3.5-5.1); SODIUM LEVEL 129 MEQ/L (136-145)
[2019-06-20 08:00] VITALS: BP 96/51
[2019-06-20] MEDS: VITAMIN D 1,000 INTERNATIONAL UNITS TABLET PO SCH (09:13)
[2019-06-20] MEDS: POTASSIUM CHLORIDE 10 MEQ PO SCH ×2 (09:13→21:34)
[2019-06-20] MEDS: ASPIRIN 81 MG CHEW TABLET PO SCH (09:13)
[2019-06-20] MEDS: DIGOXIN 0.125 MG TAB PO SCH (09:14)
[2019-06-20] MEDS: LACTOBACILLUS ACIDOPHILUS CAP (BACID) PO SCH (09:14)
[2019-06-20] MEDS: MULTIVITAMINS/MINERALS THERAP 1 TAB PO SCH (09:14)
[2019-06-20] MEDS: LIDOCAINE 5% (LIDODERM) PATCH TD SCH (09:15)
[2019-06-20] MEDS: SPIRONOLACTONE 25 MG TAB PO SCH (09:15)
[2019-06-20] MEDS: MILRINONE/DEXTROSE 20 MG in IV 1 EA IV SCH (09:16)
[2019-06-20] MEDS: ceFAZolin SOD 2 GM in IV 1 EA IV SCH ×2 (09:16→17:42)
--- NOTE | 2019-06-20 10:02 | IPN ---
DATE: 06/19/2019 Today Mr. Flores has not changed much from yesterday. His reports that she was somewhat worried yesterday as he was minimally responsive and requiring BiPAP for his breathing. He pretty much uses BiPAP all day now. We had a discussion about whether the patient and his had discussed his goals of care and his wishes at this time. The patient's reports that he would like to "keep fighting". Otherwise, he was seen by nephrology and cardiology. A condom catheter was placed and his urine output has somewhat picked up today. The patient has no other complaints this morning. OBJECTIVELY: His vitals are temperature 98.3, pulse 84, respiratory rate 40, blood pressure 94/42 and pulse oximetry 90% on BiPAP. His urine output over the past 24 hours was noted at about 900 mL. He has a net negative balance of - 98 mL. Generally, he is lying in bed, not really responding to questions, sleeping using the BiPAP. He did not appear in any acute distress. HEENT: Head is normocephalic, atraumatic. Mucous membranes are moist. Sclerae are nonicteric. His neck is supple with no thyromegaly and no lymphadenopathy. His chest has even chest rise. Lungs are somewhat diminished bilaterally with no obvious adventitious breath sounds appreciated. Heart: Regular rate and rhythm. Somewhat muffled but no murmurs, rubs or gallops. Abdomen, soft, and nontender in all four quadrants. Positive bowel sounds. No masses or organomegaly. Back has extreme kyphoscoliosis but nontender. There is no costovertebral angle (CVA ) tenderness. Extremities: He has almost 4+ pitting edema in his lower extremities bilaterally. In addition, he has about 2+ pitting edema in his upper extremities. The site of his peripherally inserted central catheter (PICC) line placement is clear, dry and intact. He has no enlarged lymph nodes in his posterior, cervical, auricular, or femoral areas. Skin: He has no new rashes. ASSESSMENT: This is a 74-year-old man with. 1. Tricuspid endocarditis, methicillin sensitive Staphylococcus aureus (MSSA). Endocarditis. 2. Severe congestive heart failure undergoing aggressive diuresis. 3. Possible automatic implantable automatic implantable cardioverter defibrillator (AICD) line infection. PLAN: We have continued his antibiotics at this time. He will continue on cefazolin and rifampin. As his renal function has somewhat improved today, we will not adjust the dose of his antibiotics at this time. If his GFR gets below 35 we will need to adjust the dosing. Otherwise, we will encourage the primary team to discuss with the patient regarding end of life care and goals. 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 Dr Melchor notes were reviewed and he is in agreement Prognosis is poor at this time but we will continue to follow patient and treat his endocarditis accordingly. Note reviewed and edited by Dr Becca PEDERSEN
[2019-06-20 12:00] VITALS: BP 95/50
--- NOTE | 2019-06-20 12:21 | IPN ---
DATE: 06/20/2019 Mr. Flores feels a little bit better today than he did yesterday. He was able to come off BiPAP for a little bit longer period of time. Also his diarrhea is subsiding to some degree. He had only one bowel movement yesterday. Dyspnea is about the same. He is still unable to do virtually any activity. VITAL SIGNS: Blood pressure 96/51, heart rate has been in 70s. He has very little ectopy. He is afebrile. Saturation 99% on noninvasive ventilation. His weight is 47.8 kg. His jugular venous pulse (JVP) is still very high. Lungs are surprisingly clear on the left completely. On the right the base is diminished. Heart exam regular rhythm. No gallop or murmur that I can appreciate but the heart sounds are very muffled. Abdomen is soft. He still has diffuse edema most prominent lower extremities. LABORATORY: Sodium 129, potassium 3.7, BUN 77, creatinine 1.2, glucose 104 and CBC hemoglobin 13.0, hematocrit 40, WBC count 9.3 ASSESSMENT/PLAN: Mr. Flores is a 74-year-old man who has end-stage systolic congestive heart failure due to nonischemic cardiomyopathy. He is followed by the heart failure group from [place]. Has had chronic outpatient milrinone infusion but unfortunately it appears that his condition is further complicated by right-sided endocarditis almost certainly related to his chronic central line. As far as the heart failure is concerned, I am slightly encouraged by the fact that his renal function has improved. It points that ,indeed, it is likely that the injury was due to contrast administration. He has some urine output even though yesterday the recording was only 500 mL but there was no bowel movements counted into that. At this point, I would continue current management. The patient seems to be slightly more optimistic today but I had to calm his optimism a little bit. I am afraid that to cure endocarditis will take a very long time and considerable amount of luck for successful outcome.
--- NOTE | 2019-06-20 13:10 | IPNPDOC ---
Subjective Date Seen The patient was seen on 06/20/19. Subjective Chief Complaint/HPI philip looks comfortable this morning, his breathing is not labored like it was 2 days ago. He continues to diurese on the lasix gtt. 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 bacteremia - repeat cath tip and b.cx 06/14, 06/15 are no growth to date. - presently on rifampin + cefazolin - Dr. Hudson following, may need life long suppressive therapy if survives this admission - Sanchez removed by IR - picc line placed 06/18 DVT prophylaxis: sq hep Plan/VTE VTE Prophylaxis Ordered?: Yes VTE Exclusion Mechanical Proph: N/A:VTE Prophy Ordered VTE Exclusion Pharmacological: N/A:VTE Prophy Ordered VS, I&O, 24H, Fishbone Vital Signs/I&O Vital Signs Date Time Temp Pulse Resp B/P (MAP) Pulse Ox O2 Delivery O2 Flow Rate FiO2 06/20/19 12:00 97.5 79 32 95/50 (65) 97 NIPPV (BIPAP/CPAP) I&O- Last 24 Hours up to 6 AM 06/20/19 06:00 Intake Total 1120 ml Output Total 730 ml Balance 390 ml Laboratory Data 24H LABS Laboratory Tests 2 06/20/19 05:41: Immature Granulocyte % (Auto) 0.4, Neutrophils (%) (Auto) 85.0H, Lymphocytes (%) (Auto) 3.1L, Monocytes (%) (Auto) 10.2H, Eosinophils (%) (Auto) 0.9, Basophils ( %) (Auto) 0.4, Neutrophils # (Auto) 7.9, Lymphocytes # (Auto) 0.3L, Monocytes # (Auto) 0.9H, Eosinophils # (Auto) 0.1, Basophils # (Auto) 0.0, Nucleated Red Blood Cells % (auto) 0.0, Anion Gap 11, Glomerular Filtration Rate > 60.0, Calcium Level 7.4L, Magnesium Level 2.4 CBC/BMP Laboratory Tests 06/20/19 05:41 Microbiology Microbiology 06/17/19 Anaerobic Culture - Final, Complete 06/17/19 Catheter Tip Culture - Final, Complete 06/15/19 Blood Culture - Final, Complete NO GROWTH AFTER 5 DAYS 06/15/19 Blood Culture - Final, Complete NO GROWTH AFTER 5 DAYS 06/14/19 Blood Culture - Final, Complete NO GROWTH AFTER 5 DAYS 06/14/19 Blood Culture - Final, Complete NO GROWTH AFTER 5 DAYS 06/13/19 Blood Culture - Final, Complete Staphylococcus Lugdunensis 06/13/19 Blood Culture - Final, Complete Staphylococcus Lugdunensis 06/12/19 Blood Culture - Final, Complete Staphylococcus Lugdunensis 06/12/19 Blood Culture - Final, Complete Staphylococcus Lugdunensis DIGNA ALVARADO MD Jun 20, 2019 13:10
[2019-06-20] MEDS: ONDANSETRON 4MG/2ML VIAL (J2405) IV PRN (13:13)
[2019-06-20] MEDS: FUROSEMIDE 40 MG/4 ML VIAL (J1940) IV SCH ×2 (13:13→17:26)
[2019-06-20 16:00] VITALS: BP 82/50
[2019-06-20] MEDS: ACETAMINOPHEN 500 MG TAB PO PRN (17:59)
[2019-06-20 20:00] VITALS: BP 82/43
[2019-06-20] MEDS: CETIRIZINE (ZyrTEC) 10 MG TAB PO SCH (21:34)
[2019-06-20] MEDS: PRAVASTATIN 10 MG TAB PO SCH (21:34)
[2019-06-20] MEDS: **NOTE PATIENT COMMENT** MISC XX SCH (21:35)
[2019-06-21] VITALS: BP 76/42
[2019-06-21] MEDS: ceFAZolin SOD 2 GM in IV 1 EA IV SCH ×4 (01:16→23:30)
[2019-06-21] MEDS: MILRINONE/DEXTROSE 20 MG in IV 1 EA IV SCH ×3 (01:32→20:13)
[2019-06-21] MEDS: ONDANSETRON 4MG/2ML VIAL (J2405) IV PRN (02:14)
[2019-06-21 04:00] VITALS: BP 78/42
[2019-06-21] MEDS: FUROSEMIDE 40 MG/4 ML VIAL (J1940) IV SCH ×2 (06:00)
[2019-06-21] MEDS: SLF 3 ML SYR IV SCH ×3 (06:50→22:06)
[2019-06-21] MEDS: SODIUM CHLORIDE 0.9% INJ 10 ML SYR IV SCH ×3 (06:50→17:30)
[2019-06-21 07:15] LABS: HEMATOCRIT 40.1 % (42.0-52.0); MEAN CORPUSCULAR HEMOGLOBIN 31.2 pg (27.0-33.0); MEAN CORPUSCULAR HGB CONC 32.4 g/dl (32.0-36.5); MEAN CORPUSCULAR VOLUME 96.2 fl (80.0-96.0); PLATELET COUNT, AUTOMATED 140 10^3/uL (150-450); RED BLOOD COUNT 4.17 10^6/uL (4.30-6.10); WHITE BLOOD COUNT 11.4 10^3/uL (4.0-10.0)
[2019-06-21 07:32] LABS: CALCIUM LEVEL 7.2 MG/DL (8.8-10.2); CREATININE FOR GFR 1.48 MG/DL (0.70-1.30); GLOMERULAR FILTRATION RATE 49.6 (>42); POTASSIUM SERUM 4.6 MEQ/L (3.5-5.1)
[2019-06-21 08:00] VITALS: BP 74/39
[2019-06-21] MEDS: LIDOCAINE 5% (LIDODERM) PATCH TD SCH (09:00)
--- NOTE | 2019-06-21 09:16 | ECGEPIP ---
[facility] Test Date: 2019-06-21 Pat Name: SHE QUIGLEY Department: Room: [place] [address] Gender: Male Cluster Bore Operator: LISSETTE : 1945 Requested By: KIM MARQUEZ D.O. Order Number: [id number] Reading MD: Jessica Xiao Measurements Intervals [place] Rate: 68 P: MI: 0 QRS: 41 QRSD: 130 T: 88 QT: 453 QTc: 485 Interpretive Statements SINUS RHYTHM WITH 2ND DEGREE AV BLOCK, MOBITZ TYPE II NEW NEW MODERATE INTRAVENTRICULAR CONDUCTION DELAY ST & T-WAVE ABNORMALITY UNCHANGED DECREASED VOLTAGE LIMB LEADS Electronically Signed on 06-21-2019 9:16:19 EST by Jessica Xiao
[2019-06-21] MEDS: MULTIVITAMINS/MINERALS THERAP 1 TAB PO SCH ×2 (09:40→09:41)
[2019-06-21] MEDS: ASPIRIN 81 MG CHEW TABLET PO SCH ×2 (09:40→09:41)
[2019-06-21] MEDS: VITAMIN D 1,000 INTERNATIONAL UNITS TABLET PO SCH ×2 (09:40→09:41)
[2019-06-21] MEDS: SPIRONOLACTONE 25 MG TAB PO SCH ×2 (09:40→09:41)
[2019-06-21] MEDS: LACTOBACILLUS ACIDOPHILUS CAP (BACID) PO SCH ×2 (09:40→09:41)
[2019-06-21] MEDS: POTASSIUM CHLORIDE 10 MEQ PO SCH ×2 (09:41→21:00)
--- NOTE | 2019-06-21 09:57 | IPN ---
DATE OF SERVICE: 06/20/2019 SUBJECTIVE: Mr. Flores was seen and examined today at the bedside. He remains bed bound and reports dyspnea even at rest. He had a [place] catheter placed yesterday. Urine output is only 400 mL in the past 24 hours. Vital signs: Temperature 98.3, pulse 77, respiratory rate 32, blood pressure 95/50, saturating 97%. Intake yesterday was 800. Urine output yesterday was 400. Stool output was recorded as 100 mL. Weight in the bed scale today is 47.8 kg. General: The patient is seen sitting in bed. Head of the bed elevated. Very frail-appearing elderly male. On noninvasive ventilation. Extraocular muscles are intact. The jugular veins are distended. Breath sounds are diminished at the bases. There is tachypnea but no accessory muscle use. Heart sounds are distant. There is 3+ leg edema that comes up to the hip, groin, and dependent areas. Abdomen is soft. Genitourinary: Shows external condom catheter with clear urine. Neurologic: He answers simple questions appropriately and is cooperative with physical examination. LABORATORIES: Sodium 129, potassium 3.7, BUN 77, creatinine 1.2, hemoglobin 13, white count 9.3, platelet 127, magnesium 2.4. INPATIENT MEDICATIONS: I stopped the Lasix drip and switched to Lasix 40 mg intravenous (IV) every 6 hours. He continues on Primacor infusion. He was started on Zofran as needed. Remainder of medications are unchanged as compared to yesterday. PROBLEMS: 1. Decompensated end-stage systolic congestive heart failure. Inotrope dependent. The patient's renal function has recovered. Yesterday, he received Lasix drip plus spironolactone plus Diuril, but he only made about 500 mL of urine. His hypervolemic hyponatremia is worsening, which indicates unsatisfactorily diuresis. I am switching him to Lasix 40 mg every 6 hours, and we will see how he does with the same. Continue spironolactone, as well. 2. Hypervolemic hyponatremia. Has not diuresed satisfactorily despite combination Lasix drip plus spironolactone plus Diuril. Will switch over to Lasix bolus and see how he does with that, especially now that his renal function has recovered. Continues on 1500 mL fluid restriction. 3. Infective endocarditis. Antimicrobials managed as per infectious diseases. Prognosis is overall poor. 4. Electrolyte balance. Continue current potassium supplementation. Continue spironolactone.
[2019-06-21 12:00] VITALS: BP 60/30
[2019-06-21] MEDS ORDERED: FUROSEMIDE injection 250 MG in D5W 225 ML IV SCH (12:00)
--- NOTE | 2019-06-21 12:29 | IPNPDOC ---
Subjective Date Seen The patient was seen on 06/21/19. Subjective Chief Complaint/HPI Carloz is nauseous this morning, zofran has helped a little. He was hypotensive yesterday, this is likely due to primacor + overdiuresis + worsened renal function this morning. 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 Delarosa will reduce milirone dose to see if it helps with hypotension, effects of milirone induced hypotension in the setting of renal failure may last longer than expected. - would recommend stopping diuresis in light of hypotension - montior UOP - # BYRON 2/ vanco toxicity and IV contrast nephropathy - nephro managing - creat had improved, but is worse this morning # Acute hypoxic respiratory failure due to CHF - bipap prn # Staph L. bacteremia - repeat cath tip and b.cx 06/14, 06/15 are no growth to date. - presently on rifampin + cefazolin - Dr. Hudson following, may need life long suppressive therapy if survives this admission - Sanchez removed by IR - picc line placed 06/18 DVT prophylaxis: sq hep Plan/VTE VTE Prophylaxis Ordered?: Yes VTE Exclusion Mechanical Proph: N/A:VTE Prophy Ordered VTE Exclusion Pharmacological: N/A:VTE Prophy Ordered VS, I&O, 24H, Fishbone Vital Signs/I&O Vital Signs Date Time Temp Pulse Resp B/P (MAP) Pulse Ox O2 Delivery O2 Flow Rate FiO2 06/21/19 08:00 98.2 79 24 74/39 (51) 96 NIPPV (BIPAP/CPAP) I&O- Last 24 Hours up to 6 AM 06/21/19 06:00 Intake Total 480 ml Output Total 700 ml Balance -220 ml Laboratory Data 24H LABS Laboratory Tests 2 06/21/19 06:59: Nucleated Red Blood Cells % (auto) 0.0, Anion Gap 12, Glomerular Filtration Rate 49.6, Calcium Level 7.2L CBC/BMP Laboratory Tests 06/21/19 06:59 Microbiology Microbiology 06/17/19 Anaerobic Culture - Final, Complete 06/17/19 Catheter Tip Culture - Final, Complete 06/15/19 Blood Culture - Final, Complete NO GROWTH AFTER 5 DAYS 06/15/19 Blood Culture - Final, Complete NO GROWTH AFTER 5 DAYS 06/14/19 Blood Culture - Final, Complete NO GROWTH AFTER 5 DAYS 06/14/19 Blood Culture - Final, Complete NO GROWTH AFTER 5 DAYS 06/13/19 Blood Culture - Final, Complete Staphylococcus Lugdunensis 06/13/19 Blood Culture - Final, Complete Staphylococcus Lugdunensis 06/12/19 Blood Culture - Final, Complete Staphylococcus Lugdunensis 06/12/19 Blood Culture - Final, Complete Staphylococcus Lugdunensis DIGNA ALVARADO MD Jun 21, 2019 12:29
--- NOTE | 2019-06-21 12:43 | IPN ---
DATE: 06/21/2019 Mr. Flores has not been doing well. Yesterday he made little better urine output than usual but today he is more obtunded, at times even lethargic. He has had minimal oral intake. When I saw him in his room he was off his BiPAP. He was alert and we could communicate. When I explained to him that his condition has been deteriorating and there is probably not much we can do about it. He acknowledged it, did not seem to be particularly upset. Currently, blood pressure was 70/39, heart rate in 70s, afebrile. Saturation 96% with BiPAP. Yesterday he made about 950 mL of urine, which is quite an improvement compared to his baseline. Weight was recorded 47.2 today. He is alert. He is oriented. His jugular venous pulse (JVP) is high . Lungs still sound pretty clear on the left and somewhat diminished on the right base. Heart: Exam very muffled. I do not appreciate any obvious change from before. Regular rhythm. No gallop, no rub, faint murmur. Abdomen is soft. Extremities have still about 2+ edema. LABORATORY: Sodium 129, potassium 4.6, BUN 74, creatinine 1.5, glucose 90 and calcium 7.2. CBC: WBC 11.4, hemoglobin 13, hematocrit 40 and platelet count 140,000 ASSESSMENT/PLAN: Mr. Flores is a 74-year-old man who has longstanding history of chronic systolic congestive heart failure with severe left ventricular systolic dysfunction. 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 Unfortunately, in his condition this is probably a lethal condition because he is certainly not a candidate for any surgical intervention. Today, his blood pressure is low. I suspect that this is evidence of worsening heart failure. His diuretics are being held which I agree with. We will probably cut down the dose of milrinone slightly. But I talked to the patient and his . I explained that there is probably not much else we can do as our therapeutic option have been exhausted. I explained to him that it is possible that he may not survive the current hospitalization which he has been well aware of.
[2019-06-21 16:00] VITALS: BP 75/42
[2019-06-21 20:00] VITALS: BP_SYST 76; BP_DIAS 42; BP_DIAS 74
[2019-06-21] MEDS: **NOTE PATIENT COMMENT** MISC XX SCH (20:16)
[2019-06-21] MEDS: CETIRIZINE (ZyrTEC) 10 MG TAB PO SCH (21:00)
[2019-06-21] MEDS: PRAVASTATIN 10 MG TAB PO SCH (21:00)
[2019-06-22] VITALS (8 sets, daily range): BP systolic 60–82; BP diastolic 32–41
[2019-06-22] MEDS: ONDANSETRON 4MG/2ML VIAL (J2405) IV PRN ×2 (02:06→09:33)
[2019-06-22 05:47] LABS: HEMATOCRIT 40.8 % (42.0-52.0); HEMOGLOBIN 13.2 g/dl (13.5-17.5); MEAN CORPUSCULAR HEMOGLOBIN 31.4 pg (27.0-33.0); MEAN CORPUSCULAR HGB CONC 32.4 g/dl (32.0-36.5); MEAN CORPUSCULAR VOLUME 96.9 fl (80.0-96.0); PLATELET COUNT, AUTOMATED 128 10^3/uL (150-450); RED BLOOD COUNT 4.21 10^6/uL (4.30-6.10)
[2019-06-22] MEDS: SODIUM CHLORIDE 0.9% INJ 10 ML SYR IV SCH ×2 (06:03→18:11)
[2019-06-22] MEDS: SLF 3 ML SYR IV SCH ×3 (06:03→21:44)
[2019-06-22 06:19] LABS: CALCIUM LEVEL 6.6 MG/DL (8.8-10.2); CREATININE FOR GFR 1.83 MG/DL (0.70-1.30); GLOMERULAR FILTRATION RATE 38.8 (>42)
--- NOTE | 2019-06-22 08:26 | IPN ---
DATE: 06/22/2019 Mr. Flores did not have a good night. His blood pressure continues to be very low at times. The lowest documented was 60/40, but typically in the 70s. This morning, it was a little better at 82/38. He remains on BiPap virtually all the time and his fluid intake has been minimal. He did not have any food. He still remains completely alert and oriented. Vital Signs: Blood pressure as above. Saturation is 92% on BiPap. Heart rate is in the 70s. He is afebrile. Fluid balance yesterday was recorded about negative 300. He made about 425 mL of urine, but the intake has been minimal. He is alert, oriented and appropriate. His jugular venous pulse (JVP) is quite high, at least 6-7 cm above the clavicle. Lungs remain clear on the left and on the right they are diminished. There is diminished base. Heart exam reveals very muffled heart sounds corresponding to severe kyphoscoliosis. I do not appreciate any obvious gallop, rub or murmur. There is a diffuse edema, both on upper and lower extremities and also in his face. Laboratory-glover, hemoglobin 13.2, hematocrit 40, platelet count 128,000. Basic metabolic panel: sodium 130, potassium 4.0, BUN 77, creatinine 1.8 and glucose 71. ASSESSMENT/PLAN: Mr. Flores is a 74-year-old man who has end stage dilated cardiomyopathy who presented with acute on chronic systolic congestive heart failure. 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 Unfortunately, he now seems to have progressive heart failure, I suspect due to the effect of the infection. The attempts to diurese him successfully have been limited by low blood pressure and the diuretics had to be stopped yesterday. I had a discussion with him and his this morning. I explained to him that I am afraid that he is not going to survive this hospitalization and that the trend is in the wrong direction. I offered to him to proceed with purely palliative care, but he is still not quite ready and would like to continue treatment. We can attempt to discontinue milrinone and give him dobutamine instead. I am not convinced that this is going to be successful, but it is one of the options, even though in my opinion it is ultimately not going to make a difference. I am going to cut down the milrinone dose in half again and depending on the response will decide whether will stop it altogether and switch him to dobutamine or not. If the blood pressure allows, will restart the diuretics. Unfortunately, I am afraid that the prognosis is very poor and I see a very low probability of recovery.
[2019-06-22] MEDS: LIDOCAINE 5% (LIDODERM) PATCH TD SCH ×2 (09:00→09:33)
[2019-06-22] MEDS: ceFAZolin SOD 2 GM in IV 1 EA IV SCH ×2 (09:29→16:41)
[2019-06-22] MEDS: SPIRONOLACTONE 25 MG TAB PO SCH (09:30)
[2019-06-22] MEDS: LACTOBACILLUS ACIDOPHILUS CAP (BACID) PO SCH (09:31)
[2019-06-22] MEDS: ASPIRIN 81 MG CHEW TABLET PO SCH (09:31)
[2019-06-22] MEDS: MULTIVITAMINS/MINERALS THERAP 1 TAB PO SCH (09:31)
[2019-06-22] MEDS: POTASSIUM CHLORIDE 10 MEQ PO SCH ×2 (09:31→21:00)
[2019-06-22] MEDS: DIGOXIN 0.125 MG TAB PO SCH (09:31)
[2019-06-22] MEDS: VITAMIN D 1,000 INTERNATIONAL UNITS TABLET PO SCH (09:32)
[2019-06-22] MEDS: METOCLOPRAMIDE INJ 10MG/2ML VIAL (J2765) IV PRN ×2 (11:24→22:09)
--- NOTE | 2019-06-22 16:01 | IPNPDOC ---
Subjective Date Seen The patient was seen on 06/22/19. Subjective Chief Complaint/HPI philip continues to have n/v, likely from his combination of CHF, hypotension and BYRON Objective Physical Examination General Exam: Positive: Alert, No Acute Distress Eye Exam: Positive: Sclera icteric ENT Exam: Positive: Atraumatic Neck Exam: Positive: JVD Chest Exam: Positive: Normal air movement, Diminished Heart Exam: Positive: Rate Normal, Irregular Rhythm, Normal S1, Normal S2 Telemetry: Positive: No significant arrhythmia Abdomen Exam: Positive: Normal bowel sounds, Soft; Negative: Tenderness Extremity Exam: Positive: Edema (LE anasarca); Negative: Clubbing, Cyanosis Skin Exam: Negative: Rash Assessment /Plan Assessment # 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 Delarosa this am, will continue to reduce primacor gtt and consider switching to dobutamine - patient not open to [employer]TE[employer] [facility] at this time' # Nausea - zofran prn - add IV reglan # BYRON / vanco toxicity and IV contrast nephropathy - nephro managing - creat had improved, but continues to worsen over the past 2 days, likely due to cardiorenal syndrome # Acute hypoxic respiratory failure due to CHF - bipap prn # Staph L. bacteremia - repeat cath tip and b.cx 06/14, 06/15 are no growth to date. - presently on rifampin + cefazolin - Dr. Hudson following, may need life long suppressive therapy if survives this admission - Sanchez removed by IR - picc line placed 06/18 DVT prophylaxis: sq hep Plan/VTE VTE Prophylaxis Ordered?: Yes VTE Exclusion Mechanical Proph: N/A:VTE Prophy Ordered VTE Exclusion Pharmacological: N/A:VTE Prophy Ordered Plan/Urinary Catheter Urinary Catheter: Other Catheter: (condom) VS, I&O, 24H, Fishbone Vital Signs/I&O Vital Signs Date Time Temp Pulse Resp B/P (MAP) Pulse Ox O2 Delivery O2 Flow Rate FiO2 06/22/19 12:00 99.6 80 22 64/37 (46) 90 NIPPV (BIPAP/CPAP) I&O- Last 24 Hours up to 6 AM 06/22/19 06:00 Intake Total 100 ml Output Total 375 ml Balance -275 ml Laboratory Data 24H LABS Laboratory Tests 2 06/22/19 05:11: Nucleated Red Blood Cells % (auto) 0.0, Anion Gap 14, Glomerular Filtration Rate 38.8L, Calcium Level 6.6L CBC/BMP Laboratory Tests 06/22/19 05:11 Microbiology Microbiology 06/17/19 Anaerobic Culture - Final, Complete 06/17/19 Catheter Tip Culture - Final, Complete 06/15/19 Blood Culture - Final, Complete NO GROWTH AFTER 5 DAYS 06/15/19 Blood Culture - Final, Complete NO GROWTH AFTER 5 DAYS 06/14/19 Blood Culture - Final, Complete NO GROWTH AFTER 5 DAYS 06/14/19 Blood Culture - Final, Complete NO GROWTH AFTER 5 DAYS 06/13/19 Blood Culture - Final, Complete Staphylococcus Lugdunensis 06/13/19 Blood Culture - Final, Complete Staphylococcus Lugdunensis 06/12/19 Blood Culture - Final, Complete Staphylococcus Lugdunensis 06/12/19 Blood Culture - Final, Complete Staphylococcus Lugdunensis DIGNA ALVARADO MD Jun 22, 2019 16:01
[2019-06-22] MEDS ORDERED: DOBUTamine HCL 500,000 MCG in IV 1 EA IV SCH (17:15)
--- NOTE | 2019-06-22 18:52 | IPN ---
DATE: 06/21/2019 SUBJECTIVE: Manuel is seen and examined this morning at the bedside. He took the bilevel positive airway pressure (BiPAP) off while I was in the room. He denies dyspnea at rest. His states he did not have anything to eat today. In the past 24 hours, he only got one dose of intravenous (IV) Lasix because of the hold parameters. However, he did make almost a liter of urine, which is more than he has made on previous days. Unfortunately, blood pressures have been very soft today. Systolic has been 60s to 70s and I did have a discussion with his regarding his clinical deterioration. VITAL SIGNS: Temperature 98.2, pulse 79, respiratory rate 24, blood pressure 74/39, saturating 96% on BiPAP. Intake yesterday was 660. Urine output yesterday was 950. Intake today was only 100 mL. Weight in the bed scale today is 47.2 kg. GENERAL: The patient is seen lying in bed. Head of the bed elevated. Frail, elderly male, awake, alert and interactive, removed the BiPAP at the time of my visit, conversational. His jugular veins are elevated. Breath sounds are diminished at the bases. There is mild tachypnea. There is no accessory muscle use. Heart sounds are regular and somewhat distant. There is 3+ leg edema along with edema in the right arm. MUSCULOSKELETAL: There is obvious muscle wasting and frail body habitus. LABORATORY DATA: Sodium 129, potassium 4.6, BUN 74, creatinine 1.4, glucose 90. Hemoglobin 13, platelet count 140. PROBLEMS: 1. Decompensated end-stage systolic congestive heart failure, inotrope dependent. Unfortunately, the patient's mean arterial pressure (MAP) has worsened. His systolic is only in the 60s to 70s today. I am going to hold diuretics. I explained to his that I am very pessimistic about our ability to diurese him in view of his severe congestive heart failure and poor perfusion pressures. 2. Acute kidney injury (BYRON). Patient has had fluctuating of renal function. I believe the contrast-induced nephropathy component has probably resolved. The fluctuation in creatinine that we are seeing now is due to cardiorenal syndrome and given that he has end-stage heart failure and is inotrope dependent and has very poor systolic blood pressures in the 60s to 70s, I do not feel that we are going to be able to satisfactorily diuresis him. Today, his diuretics are held in view of poor blood pressures. 3. Hypervolemic hyponatremia due to decompensated end-stage heart failure. Diuretics are on hold in view of very low systolic blood pressures.
[2019-06-22] MEDS: **NOTE PATIENT COMMENT** MISC XX SCH ×2 (20:00→21:00)
[2019-06-22] MEDS: PRAVASTATIN 10 MG TAB PO SCH (21:00)
[2019-06-22] MEDS: CETIRIZINE (ZyrTEC) 10 MG TAB PO SCH (21:00)
[2019-06-22] MEDS: LIDOCAINE 5% (LIDODERM) PATCH TD PRN (21:53)
[2019-06-22] MEDS: ACETAMINOPHEN 500 MG TAB PO PRN (22:09)
--- NOTE | 2019-06-22 23:10 | IPN ---
DATE: 06/22/2019 SUBJECTIVE: Manuel is seen and examined this morning at the bedside. He is not doing well. I had a lengthy discussion with the patient, his and his younger brother regarding his clinical deterioration. His last two systolic blood pressures have been less than 70. He is again in renal failure, creatinine is increasing. Urine output has been poor, diuretics have been on hold. Cardiology has cut down his inotropic support. The patient is dyspneic even at rest. Vital signs: Temperature 98.2, pulse 79, respiratory rate 24, blood pressure 68/32, saturating 95% on bilevel positive airway pressure (BiPAP). Intake yesterday was only 120 mL. Urine output yesterday was 425 mL. Weight in the bed scale today is not recorded. General: The patient is seen sitting in the bed. Head of the bed is elevated. He is propped up with pillows. He looks dyspneic even at rest. He takes his BiPAP off at the time of my visit. Makes poor eye contact. Has obvious musculoskeletal deformities, including severe kyphoscoliosis. Jugular veins are obviously distended even while he is sitting upright. Breath sounds are diminished at the bases, and there is mild tachypnea. Cardiac sounds are muffled. There is 3+ leg edema and 1+ edema of the arms. Abdomen is soft and mildly tender to palpation. Neurologic: He is awake, alert and oriented to person, place and situation. LABORATORY: Sodium 130, potassium 4.0, bicarbonate 23, BUN 77, creatinine 1.8, hemoglobin 13.2, platelets 128. INPATIENT MEDICATIONS: He continues on Primacor infusion, but the rate has been decreased. He was started on Reglan as needed. His remainder medications are unchanged from prior. PROBLEMS: 1. Acute kidney injury on chronic kidney disease stage 2; it is due to cardiorenal syndrome. His blood pressures have been very low, last two systolics were less than 70. He has renal hypoperfusion. His diuretics are on hold. His overall prognosis is poor in view of end-stage congestive heart failure, and I have discussed the same with the patient and his at length at the bedside. They are not yet willing for palliative care consult and would like to continue with medical management. If his blood pressures improve, we can continue to try to diurese him. 2. Decompensated end-stage systolic congestive heart failure, inotrope dependent. Primacor dose was decreased by cardiology. His blood pressures are very poor; systolic has been less than 70. Certainly he is in cardiorenal syndrome and will have worsening renal function. As he is not willing for palliative measures and would like to continue with medical management, I suggest to increase his inotropic support or to switch to dobutamine and defer to cardiology. If his systolic rises to the 80s, we can put him back on Lasix. At this time, I am going to stop spironolactone as I am concerned he may become quickly hyperkalemic as he is in progressive kidney failure. 3. Hypokalemia. The patient takes daily potassium supplementation and is also on spironolactone. However, as he is in kidney failure with rising creatinine and poor urine output, renal hypoperfusion and cardiorenal syndrome, I am stopping the spironolactone. 4. Disposition: Prognosis is very poor. Discussed at length with the patient and his high risk for recurrent kidney injury secondary to cardiorenal syndrome. I have discussed with cardiology, defer on inotropic management to them.
[2019-06-23] VITALS: BP 72/38
[2019-06-23] MEDS: ceFAZolin SOD 2 GM in IV 1 EA IV SCH ×2 (00:10→09:22)
[2019-06-23 04:00] VITALS: BP 68/40
[2019-06-23 05:35] LABS: HEMATOCRIT 35.3 % (42.0-52.0); HEMOGLOBIN 11.5 g/dl (13.5-17.5); MEAN CORPUSCULAR HEMOGLOBIN 31.7 pg (27.0-33.0); MEAN CORPUSCULAR HGB CONC 32.6 g/dl (32.0-36.5); MEAN CORPUSCULAR VOLUME 97.2 fl (80.0-96.0); PLATELET COUNT, AUTOMATED 124 10^3/uL (150-450); RED BLOOD COUNT 3.63 10^6/uL (4.30-6.10); WHITE BLOOD COUNT 14.5 10^3/uL (4.0-10.0)
[2019-06-23 05:54] LABS: CALCIUM LEVEL 6.2 MG/DL (8.8-10.2); CREATININE FOR GFR 2.24 MG/DL (0.70-1.30); GLOMERULAR FILTRATION RATE 30.7 (>42); POTASSIUM SERUM 4.2 MEQ/L (3.5-5.1)
[2019-06-23] MEDS: SLF 3 ML SYR IV SCH ×3 (06:24→21:55)
[2019-06-23] MEDS: SODIUM CHLORIDE 0.9% INJ 10 ML SYR IV SCH ×2 (06:25→13:48)
[2019-06-23 08:00] VITALS: BP 64/35
[2019-06-23] MEDS: ASPIRIN 81 MG CHEW TABLET PO SCH (09:00)
[2019-06-23] MEDS: LACTOBACILLUS ACIDOPHILUS CAP (BACID) PO SCH (09:00)
[2019-06-23] MEDS: MULTIVITAMINS/MINERALS THERAP 1 TAB PO SCH (09:00)
[2019-06-23] MEDS: VITAMIN D 1,000 INTERNATIONAL UNITS TABLET PO SCH (09:00)
[2019-06-23] MEDS: POTASSIUM CHLORIDE 10 MEQ PO SCH (09:00)
[2019-06-23] MEDS: METOCLOPRAMIDE INJ 10MG/2ML VIAL (J2765) IV PRN (09:23)
[2019-06-23 12:00] VITALS: BP 58/35
[2019-06-23] MEDS ORDERED: MORPHINE 2 MG/ML 1ML VIAL (J2270) IV PRN (12:00)
[2019-06-23] MEDS ORDERED: ATROPINE SULFATE 1% OP SOLN 2 ML BTL SL PRN (12:00)
[2019-06-23] MEDS ORDERED: SCOPOLAMINE 1MG TRANSDERMAL PATCH TOP PRN (12:00)
--- NOTE | 2019-06-23 16:39 | IPN ---
DATE: 06/23/2019 Mr. Flores was seen and examined at the bedside this morning. He was off of his BiPAP. His was at the bedside. His BUN and creatinine have worsened today from 77 and 1.83 yesterday and today was found to be 102 and 2.24. Poor prognosis was discussed at length. The patient elected to go comfort measures only and to forgo any further treatment as prescribed previously as it was futile measures. All questions were answered and a new Medical Orders for Life Sustaining Treatment (MOLST) form was signed by the patient shortly after this conversation. OBJECTIVE: VITAL SIGNS: Temperature 98.4, pulse 83, respiratory rate of 24, blood pressure 58/35 with a MAP of 43, pulse oximetry 93%. The patient looks uncomfortable. He is using accessory muscles of respiration. LUNGS: Diminished breath sounds bilaterally. HEART: He has regular rate and rhythm. EXTREMITIES: 2 to 3+ pitting edema bilaterally. MSK: severe kyphoscoliosis ASSESSMENT: This is a 74-year-old male with acute kidney injury on chronic kidney disease stage II, now currently in cardiorenal syndrome with end stage heart failure / inotrope dependent. PLAN: 1. Oliguric renal failure, recurrent - cardiorenal syndrome in the setting of End stage CHF. Not a dialysis candidate. MAP has been poor despite inotropic support. Futility of treatment discussed. Pt elects for [employer] status. MOLST updated. Primary team made aware. 2. Decompensated end stage systolic congestive heart failure (CHF) and Cardiorenal syndrome. DISPOSITION: Prognosis is poor. The patient is comfort measures only. We are happy to assist with any further questions regarding the patient. All questions from family and patient have been answered at this time. NUVIA
--- NOTE | 2019-06-23 20:10 | IPNPDOC ---
Subjective Date Seen The patient was seen on 06/23/19. Subjective Chief Complaint/HPI Shortness of breath, pain Events since last encounter Patient was sleeping when I was in the room. After discussion with the she is aware that he has a very poor prognosis. Later on in the day both the patient and discussed the case with nephrology, and the decision was made to transition over to comfort measures only. General: Reports: ROS Unobtainable Objective Physical Examination General Exam: Positive: No Acute Distress ENT Exam: Positive: Atraumatic Neck Exam: Positive: JVD Chest Exam: Positive: Diminished Heart Exam: Positive: Rate Normal, Irregular Rhythm Telemetry: Positive: No significant arrhythmia Abdomen Exam: Positive: Normal bowel sounds, Soft Extremity Exam: Positive: Edema (LE anasarca); Negative: Clubbing, Cyanosis Skin Exam: Negative: Rash Assessment /Plan Plan/VTE VTE Prophylaxis Ordered?: Yes VTE Exclusion Mechanical Proph: N/A:VTE Prophy Ordered VTE Exclusion Pharmacological: N/A:VTE Prophy Ordered Plan/Urinary Catheter Urinary Catheter: Other Catheter: (condom) Plan # 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 bacteremia Additional interventions have now been discontinued. Orders for comfort measures only have been initiated. VS, I&O, 24H, Fishbone Vital Signs/I&O Vital Signs Date Time Temp Pulse Resp B/P (MAP) Pulse Ox O2 Delivery O2 Flow Rate FiO2 06/23/19 12:00 98.4 83 24 58/35 (43) 93 NIPPV (BIPAP/CPAP) I&O- Last 24 Hours up to 6 AM 06/23/19 06:00 Intake Total 342.5 ml Output Total 300 ml Balance 42.5 ml Laboratory Data 24H LABS Laboratory Tests 2 06/23/19 05:15: Nucleated Red Blood Cells % (auto) 0.0, Anion Gap 13, Glomerular Filtration Rate 30.7L, Calcium Level 6.2L CBC/BMP Laboratory Tests 06/23/19 05:15 Microbiology Microbiology 06/17/19 Anaerobic Culture - Final, Complete 06/17/19 Catheter Tip Culture - Final, Complete 06/15/19 Blood Culture - Final, Complete NO GROWTH AFTER 5 DAYS 06/15/19 Blood Culture - Final, Complete NO GROWTH AFTER 5 DAYS 06/14/19 Blood Culture - Final, Complete NO GROWTH AFTER 5 DAYS 06/14/19 Blood Culture - Final, Complete NO GROWTH AFTER 5 DAYS 06/13/19 Blood Culture - Final, Complete Staphylococcus Lugdunensis 06/13/19 Blood Culture - Final, Complete Staphylococcus Lugdunensis JARETT BACON DO Jun 23, 2019 20:10
[2019-06-23] MEDS: **NOTE PATIENT COMMENT** MISC XX SCH (21:00)
[2019-06-23] MEDS: LIDOCAINE 5% (LIDODERM) PATCH TD PRN (21:54)
[2019-06-24] MEDS: SODIUM CHLORIDE 0.9% INJ 10 ML SYR IV SCH (05:46)
[2019-06-24] MEDS: SLF 3 ML SYR IV SCH (05:46)
== END 2019-06-24 06:48 | disposition expired | DRG 314 ==
LOC: EDBD 09:43 → M ED 09:43 → M ED INP 11:22 → ENRESERVDT 11:31 → ENRESERVTM 11:31 → M PCU 12:02
PROVIDERS: ADMIT General Practice; ATTEND General Practice
PROC: 02HV33Z Insertion of Infusion Device into Superior Vena Cava, Percutaneous Approach (ICD-10-PCS; principal; 2019-06-16 10:00)
DX: T82.7XXA Infection and inflammatory reaction due to other cardiac and vascular devices, implants and grafts, initial encounter (principal); J96.21 Acute and chronic respiratory failure with hypoxia; I50.43 Acute on chronic combined systolic (congestive) and diastolic (congestive) heart failure; I33.0 Acute and subacute infective endocarditis; E87.1 Hypo-osmolality and hyponatremia; R78.81 Bacteremia; R57.0 Cardiogenic shock; Z66 Do not resuscitate; E78.5 Hyperlipidemia, unspecified; M81.0 Age-related osteoporosis without current pathological fracture; Z86.73 Personal history of transient ischemic attack (TIA), and cerebral infarction without residual deficits; Z79.82 Long term (current) use of aspirin; M41.9 Scoliosis, unspecified; G47.33 Obstructive sleep apnea (adult) (pediatric); F50.9 Eating disorder, unspecified; Z85.46 Personal history of malignant neoplasm of prostate; Z88.0 Allergy status to penicillin; Z91.040 Latex allergy status; Z79.899 Other long term (current) drug therapy; I36.8 Other nonrheumatic tricuspid valve disorders; B95.8 Unspecified staphylococcus as the cause of diseases classified elsewhere; E87.6 Hypokalemia; T50.8X5A Adverse effect of diagnostic agents, initial encounter; T36.8X5A Adverse effect of other systemic antibiotics, initial encounter; Z51.5 Encounter for palliative care

== ENCOUNTER → 2019-06-12 | Outpatient (REF) | payer MEDICARE, OTHER ==
[~2019-06-12] MED LIST changes: +ACET-683 PO; +D3 22000 PO
[2019-06-12 11:05] LABS: HEMATOCRIT 42.9 % (42.0-52.0); HEMOGLOBIN 13.6 g/dl (13.5-17.5); MEAN CORPUSCULAR HEMOGLOBIN 31.8 pg (27.0-33.0); MEAN CORPUSCULAR HGB CONC 31.7 g/dl (32.0-36.5); MEAN CORPUSCULAR VOLUME 100.2 fl (80.0-96.0); PLATELET COUNT, AUTOMATED 154 10^3/uL (150-450); RED BLOOD COUNT 4.28 10^6/uL (4.30-6.10); WHITE BLOOD COUNT 9.8 10^3/uL (4.0-10.0)
[2019-06-12 11:38] LABS: ALBUMIN 3.5 GM/DL (3.2-5.2); ALT/SGPT 24 U/L (12-78); BILIRUBIN,TOTAL 0.8 MG/DL (0.2-1.0); BLOOD UREA NITROGEN 51 MG/DL (7-18); CARBON DIOXIDE LEVEL 36 MEQ/L (21-32); CHLORIDE LEVEL 87 MEQ/L (98-107); CREATININE FOR GFR 0.59 MG/DL (0.70-1.30); GLOMERULAR FILTRATION RATE > 60.0 (>42); GLUCOSE, FASTING 84 MG/DL (70-100); MAGNESIUM LEVEL 2.2 MG/DL (1.8-2.4); NT-PRO BNP 18627 PG/ML (<125); SODIUM LEVEL 132 MEQ/L (136-145); TOTAL PROTEIN 6.6 GM/DL (6.4-8.2)
== END ==
LOC: M SHH 10:18
PROVIDERS: ATTEND Nurse Practitioner
DX: I50.43 Acute on chronic combined systolic (congestive) and diastolic (congestive) heart failure (principal)